=== PATIENT | male | born 1945 | race Caucasian/White ===

== ENCOUNTER 2016-12-16 12:39 | Emergency (ER) | payer MEDICARE, OTHER ==
[2016-12-16 12:48] VITALS: RESP 18
--- NOTE | 2016-12-16 14:04 | CT ---
EXAMINATION TYPE: CT brain alison palma DATE OF EXAM: 12/16/2016 1:37 PM COMPARISON: NONE HISTORY: Patient fell today. Patient denies head trauma or other head complaints. Patient denies ne ck pain or other neck complaints. CT DLP: 1457.6 mGycm Automated exposure control for dose reduction was used. TECHNIQUE: CT scan of the head and cervical spine are performed without contrast. FINDINGS: There is no acute intracranial hemorrhage, mass effect, or midline shift identified. The ventricles and sulci are within normal limits in size. Increased attenuation present within the sca lp towards the convexity. White matter demyelination present in the periventricular locations. There is mild cortical atrophy which is likely age-related. The globes are intact and the visualized sinuse s are clear. Cervical spine is visualized in its entirety from C1 through upper thoracic levels and demonstrates s atisfactory alignment without evidence of acute fracture or dislocation. Prevertebral soft tissue ap pears within normal limits. Multilevel foraminal encroachment due to uncovertebral joint hypertrophy , facet arthropathy. Spondylosis present at C6-7 with associated loss of disc height, C7-T1. The C1-C 2 articulation is unremarkable. IMPRESSION: 1. There is no acute fracture or dislocation evident in the cervical spine. 2. No acute intracranial hemorrhage, mass effect, or midline shift is seen. Possible subgaleal hemato ma.
--- NOTE | 2016-12-16 14:34 | ED ---
Fall HPI - General Chief Complaint: Fall Stated Complaint: Fall Time Seen by Provider: 12/16/16 12:41 Source: patient, EMS, RN notes reviewed Mode of arrival: EMS Limitations: no limitations - History of Present Illness Initial Comments: 71-year-old male presents emergency Department chief complaint some fall. Patient states that he knew his driveway was icy sidewalk in the grass though he did not see the ice there. Patient states he fell onto his left side. Patient complains of neck pain, back pain, left shoulder pain and left hand fifth digit pain. Patient states her no head injury no LOC. Patient is in c- collar from EMS. Patient states that he did lay on the ground for a period time though he denies being cold at this time. Patient denies any chest pain or shortness of breath. Patient states he has no hip pain no lower extremity pain. Patient offers no complaints paresthesias. Patient states this was a slip and fall there is no syncopal episode. - Related Data Home Medications Medication Instructions Recorded Confirmed Dicyclomine HCl 20 mg PO DAILY 05/24/14 12/16/16 Levothyroxine Sodium [Synthroid] 100 mcg PO DAILY 05/24/14 12/16/16 Omeprazole 40 mg PO DAILY 05/24/14 12/16/16 metFORMIN HCL 1,000 mg PO BID 05/24/14 12/16/16 Nortriptyline [Pamelor] 25 mg PO HS 02/23/15 12/16/16 Acyclovir 400 mg PO BID 10/11/16 12/16/16 LORazepam [Ativan] 0.5 mg PO Q6H PRN 10/11/16 12/16/16 Metoprolol Succinate (ER) [Toprol 100 mg PO DAILY 10/11/16 12/16/16 Xl] Ondansetron HCl [Zofran] 8 mg PO Q8H PRN 10/11/16 12/16/16 Sulfamethox-Tmp 400-80Mg [Bactrim 1 tab PO DAILY 10/11/16 12/16/16 SS 400-80 mg] Tamsulosin [Flomax] 0.4 mg PO HS 10/11/16 12/16/16 amLODIPine [Norvasc] 5 mg PO DAILY 10/11/16 12/16/16 Sennosides [Senna] 17.2 mg PO DAILY PRN 12/16/16 12/16/16 Tacrolimus [Prograf] 0.5 mg PO DAILY 12/16/16 12/16/16 Previous Rx's Medication Instructions Recorded Aspirin EC [Ecotrin Low Dose] 81 mg PO DAILY #30 tablet. 03/02/15 Hydrocodone/Acetaminophen [[place] 1 tab PO Q6HR PRN #20 tab 12/16/16 5-325] Allergies Allergy/AdvReac Type Severity Reaction Status Date / Time No Known Allergies Allergy Verified 12/16/16 13:10 Review of Systems ROS Statement: Those systems with pertinent positive or pertinent negative responses have been documented in the HPI. ROS Other: All systems not noted in ROS Statement are negative. Past Medical History Past Medical History: Coronary Artery Disease (CAD), Cancer, Chest Pain / Angina , Diabetes Mellitus, Deep Vein Thrombosis (DVT), GI Bleed, Hyperlipidemia, Hypertension, Osteoarthritis (OA), Thyroid Disorder Additional Past Medical History / Comment(s): hx KIDNEY STONES, hx DIVERTICULITIS, currently getting chemo History of Any Multi-Drug Resistant Organisms: None Reported Past Surgical History: Adenoidectomy, Cholecystectomy, Heart Catheterization With Stent, Hernia Repair, Orthopedic Surgery, Tonsillectomy Additional Past Surgical History / Comment(s): carpal tunnel, bone spur repair to bilateral heals and FEET, X5 cardiac STENTS, RT KNEE BONE SPURS, CATARACTS JA, JA INGUINAL HERNIA REPAIR AND UMBILLICAL. removal of malignant tumor from back Past Anesthesia/Blood Transfusion Reactions: Motion Sickness Date of Last Stent Placement:: 2006 Past Psychological History: No Psychological Hx Reported, Depression Smoking Status: Never smoker Past Alcohol Use History: None Reported Past Drug Use History: None Reported - Past Family History Father Family Medical History: Myocardial Infarction ([place]) Additional Family Medical History / Comment(s): PTBA Mother Family Medical History: CVA/TIA, Diabetes Mellitus (Mother at age of 82 from CVA and diabetes and she did have episode of rectal bleed.) Additional Family Medical History / Comment(s): JA KNEE REPLACEMENT Brother(s) Family Medical History: Cancer General Exam Limitations: no limitations General appearance: alert, in no apparent distress Head exam: Present: atraumatic, normocephalic, normal inspection Eye exam: Present: normal appearance, PERRL, EOMI. Absent: scleral icterus, conjunctival injection, periorbital swelling ENT exam: Present: normal exam, normal oropharynx, mucous membranes moist, TM's normal bilaterally, normal external ear exam Neck exam: Present: normal inspection, tenderness. Absent: meningismus, full ROM (Patient in c-collar), lymphadenopathy Respiratory exam: Present: normal lung sounds bilaterally. Absent: respiratory distress, wheezes, rales, rhonchi, stridor Cardiovascular Exam: Present: regular rate, normal rhythm, normal heart sounds. Absent: systolic murmur, diastolic murmur, rubs, gallop, clicks GI/Abdominal exam: Present: soft, normal bowel sounds. Absent: distended, tenderness, guarding, rebound, rigid Extremities exam: Present: other (Left shoulder is mild tenderness noted though patient has good range of motion, left hand fifth digit there is some tenderness over the fifth digit no obvious deformity. Lower extremity strength equal bilaterally neurovascular intact) Back exam: Present: normal inspection, full ROM, tenderness (Mild tenderness to the thoracic and lumbar region), paraspinal tenderness, vertebral tenderness Neurological exam: Present: alert, oriented X3, CN II-XII intact, reflexes normal. Absent: motor sensory deficit Skin exam: Present: warm, dry, intact, normal color. Absent: rash Course Vital Signs 12/16/16 12:40 Temperature 97.4 F L Pulse Rate 69 Respiratory 18 Rate Blood Pressure 178/82 O2 Sat by Pulse 98 Oximetry Medical Decision Making - Medical Decision Making 71-year-old male present emergency for slipped and fall from ice. There is no acute fracture. CT showed possible subaleal hematoma though he has no lacerations no noted head injuryPlease return to the Emergency Department if symptoms worsen or any other concerns. Disposition Clinical Impression: Fall, Multiple contusions, Back pain Disposition: HOME SELF-CARE Condition: Stable Instructions: Contusion in Adults (ED) Additional Instructions: Please return to the Emergency Department if symptoms worsen or any other concerns. Prescriptions: Hydrocodone/Acetaminophen [[place] 5-325] 1 tab PO Q6HR PRN #20 tab PRN Reason: Pain Time of Disposition: 15:26
--- NOTE | 2016-12-16 15:00 | XR ---
Lumbar spine HISTORY: Trauma and pain 3 views of the lumbar spine correlated to prior lumbar spine 10 December 2012 Bone mineralization is low. Lumbar vertebral bodies show stable height, alignment. Sclerosis present in the posterior elements. There is multilevel spondylosis. Loss of disc height present at L4-5, L5-S 1. IMPRESSION: Essentially stable exam. No acute abnormality evident. Degenerative disc disease and face t arthropathy.
--- NOTE | 2016-12-16 15:08 | XR ---
EXAMINATION TYPE: XR chest 1V DATE OF EXAM: 12/16/2016 2:59 PM COMPARISON: 10/11/2016 HISTORY: Post fall TECHNIQUE: Single frontal view of the chest is obtained. FINDINGS: There is no focal air space opacity, pleural effusion, or pneumothorax seen. The cardiac silhouette size is within normal limits. The osseous structures are intact. Hyperinflation suggests COPD. Hypertrophic and degenerative change of the spine noted. IMPRESSION: No acute process.
--- NOTE | 2016-12-16 15:11 | XR ---
EXAMINATION TYPE: XR hand complete LT DATE OF EXAM: 12/16/2016 2:59 PM COMPARISON: NONE HISTORY: Pain FINDINGS: The osseous structures are intact. There is arthropathy involving the DIP and PIP joints. Narrowing o f the MCP joint of the first through fourth digits seen. Arthropathy is a pattern of hypertrophic art hropathy and likely representing osteoarthritis. Corticated bony densities are seen along the dorsum of the middle phalanx of the fourth and fifth dig it and appear to be chronic. IMPRESSION: 1. No definite acute fracture or dislocation if symptoms persist, follow-up study in 7 to 10 days wo uld be suggested. 2. Post arthritic changes correlate for osteoarthritis.
--- NOTE | 2016-12-16 15:13 | XR ---
Left shoulder HISTORY: Trauma and pain 3 views of the left shoulder There is mild arthropathy of the glenohumeral joint. Overlying artifact is noted. Distal acromion is downturned. Left lung apex as visualized is normal. Bone mineralization, joint spaces and alignment m aintained. IMPRESSION: No fracture or dislocation.
--- NOTE | 2016-12-16 15:15 | XR ---
EXAMINATION TYPE: AP pelvis, one view DATE OF EXAM ORDERED: 12/16/2016 2:59 PM HISTORY: Pain. COMPARISON: None. FINDINGS: No fracture or dislocation is seen. There is sclerosis of the left SI joint and partial fu lin. Both femoral heads are nonspherical. There is a small "bump" on the right femoral neck. IMPRESSION: 1. PLEASE CORRELATE CLINICALLY FOR FEMOROACETABULAR IMPINGEMENT SYNDROME. 2. ASYMMETRIC SACROILIITIS. DIFFERENTIAL DIAGNOSIS INCLUDES PSORIATIC ARTHRITIS, REACTIVE ARTHRITIS, OSTEOARTHRITIS AND RHEUMATOID ARTHRITIS.
--- NOTE | 2016-12-16 15:33 | XR ---
Thoracic spine HISTORY: Trauma and pain 2 views of the thoracic spine on 3 images Thoracic vertebral bodies show preserved height, alignment, bone mineralization is mildly reduced. Fl owing osteophytes present along the anterior aspects of the thoracic vertebral bodies could be indica tive of diffuse idiopathic skeletal hyperostosis rather than degenerative disc changes. No paraspinal mass. There is a mild spinal curvature. IMPRESSION: No acute fracture or subluxation is evident.
[2016-12-16 15:42] VITALS: BP 149/73; PULSE 66; TEMP 96.8
== END 2016-12-16 15:42 | disposition home or self-care (01) ==
LOC: EC 12:39
DX: T14.8 Other injury of unspecified body region (principal); W00.0XXA Fall on same level due to ice and snow, initial encounter; M54.6 Pain in thoracic spine; M54.5 Low back pain; M25.512 Pain in left shoulder; M54.2 Cervicalgia; M25.542 Pain in joints of left hand; I25.10 Atherosclerotic heart disease of native coronary artery without angina pectoris; E11.9 Type 2 diabetes mellitus without complications; E78.5 Hyperlipidemia, unspecified; I10 Essential (primary) hypertension; M19.90 Unspecified osteoarthritis, unspecified site; F32.9 Major depressive disorder, single episode, unspecified; E07.9 Disorder of thyroid, unspecified; Z86.718 Personal history of other venous thrombosis and embolism; Z85.828 Personal history of other malignant neoplasm of skin; Z79.84 Long term (current) use of oral hypoglycemic drugs; Z79.899 Other long term (current) drug therapy
CPT/HCPCS: 70450; 71010; 72070; 72100; 72125; 72170; 99285

== ENCOUNTER 2016-12-17 07:30 | Emergency (ER) | payer MEDICARE, OTHER ==
[2016-12-17 07:44] VITALS: BP 159/68; RESP 18; TEMP 96.8
--- NOTE | 2016-12-17 08:38 | ED ---
Lower Extremity Injury HPI - General Chief Complaint: Extremity Injury, Lower Stated Complaint: L Hip pain Time Seen by Provider: 12/17/16 08:10 Source: patient, RN notes reviewed Mode of arrival: ambulatory Limitations: no limitations - History of Present Illness Initial Comments: Patient is a 71-year-old male presents to the emergency room for reevaluation fall. Patient states he was here yesterday for the same issue. Patient states he was unable to fill his prescription pain medication after he left the ER. Patient states he woke up this morning and began having worsening posterior left hip pain. Patient states he still able to walk. Patient states pain is worse when he presses over the area. Patient denies any new falls or trauma to his hip. Patient denies numbness or tingling going down his leg. Patient denies any other symptoms or complaints. - Related Data Home Medications Medication Instructions Recorded Confirmed Dicyclomine HCl 20 mg PO DAILY 05/24/14 12/17/16 Levothyroxine Sodium [Synthroid] 100 mcg PO DAILY 05/24/14 12/17/16 Omeprazole 40 mg PO DAILY 05/24/14 12/17/16 metFORMIN HCL 1,000 mg PO BID 05/24/14 12/17/16 Nortriptyline [Pamelor] 25 mg PO HS 02/23/15 12/17/16 Acyclovir 400 mg PO BID 10/11/16 12/17/16 LORazepam [Ativan] 0.5 mg PO Q6H PRN 10/11/16 12/17/16 Metoprolol Succinate (ER) [Toprol 100 mg PO DAILY 10/11/16 12/17/16 Xl] Ondansetron HCl [Zofran] 8 mg PO Q8H PRN 10/11/16 12/17/16 Sulfamethox-Tmp 400-80Mg [Bactrim 1 tab PO DAILY 10/11/16 12/17/16 SS 400-80 mg] Tamsulosin [Flomax] 0.4 mg PO HS 10/11/16 12/17/16 amLODIPine [Norvasc] 5 mg PO DAILY 10/11/16 12/17/16 Sennosides [Senna] 17.2 mg PO DAILY PRN 12/16/16 12/17/16 Tacrolimus [Prograf] 0.5 mg PO DAILY 12/16/16 12/17/16 Previous Rx's Medication Instructions Recorded Aspirin EC [Ecotrin Low Dose] 81 mg PO DAILY #30 tablet. 03/02/15 Hydrocodone/Acetaminophen [[place] 1 tab PO Q6HR PRN #20 tab 12/16/16 5-325] Allergies Allergy/AdvReac Type Severity Reaction Status Date / Time No Known Allergies Allergy Verified 12/17/16 07:44 Review of Systems ROS Statement: Those systems with pertinent positive or pertinent negative responses have been documented in the HPI. ROS Other: All systems not noted in ROS Statement are negative. Past Medical History Past Medical History: Coronary Artery Disease (CAD), Cancer, Chest Pain / Angina , Diabetes Mellitus, Deep Vein Thrombosis (DVT), GI Bleed, Hyperlipidemia, Hypertension, Osteoarthritis (OA), Thyroid Disorder Additional Past Medical History / Comment(s): hx KIDNEY STONES, hx DIVERTICULITIS, hx of bone ca History of Any Multi-Drug Resistant Organisms: None Reported Past Surgical History: Adenoidectomy, Cholecystectomy, Heart Catheterization With Stent, Hernia Repair, Orthopedic Surgery, Tonsillectomy Additional Past Surgical History / Comment(s): carpal tunnel, bone spur repair to bilateral heals and FEET, X5 cardiac STENTS, RT KNEE BONE SPURS, CATARACTS JA, JA INGUINAL HERNIA REPAIR AND UMBILLICAL. removal of malignant tumor from back Past Anesthesia/Blood Transfusion Reactions: Motion Sickness Date of Last Stent Placement:: 2006 Past Psychological History: No Psychological Hx Reported, Depression Smoking Status: Never smoker Past Alcohol Use History: None Reported Past Drug Use History: None Reported - Past Family History Father Family Medical History: Myocardial Infarction ([place]) Additional Family Medical History / Comment(s): PTBA Mother Family Medical History: CVA/TIA, Diabetes Mellitus (Mother at age of 82 from CVA and diabetes and she did have episode of rectal bleed.) Additional Family Medical History / Comment(s): JA KNEE REPLACEMENT Brother(s) Family Medical History: Cancer General Exam - General Exam Comments Initial Comments: Laying in exam room, no acute distress. Limitations: no limitations General appearance: alert, in no apparent distress Head exam: Present: atraumatic, normocephalic, normal inspection Eye exam: Present: normal appearance ENT exam: Present: normal exam Neck exam: Present: normal inspection Respiratory exam: Present: normal lung sounds bilaterally. Absent: respiratory distress Cardiovascular Exam: Present: regular rate, normal rhythm, normal heart sounds Expanded Peripheral pulses: 2+: Femoral (R), Femoral (L) Left Hip exam: Present: full ROM, tenderness (lateral gluteal pain on palpation), external rotation, internal rotation, pelvic stability. Absent: crepitus, shortening Upper Leg exam: Present: normal inspection, full ROM. Absent: tenderness Knee exam: Present: normal inspection, full ROM. Absent: tenderness Neurovascular tendon exam: Present: no vascular compromise. Absent: pulse deficit (2+ dorsal pedal and posterior tibial pulses), abnormal cap refill ( Capillary refill less than 2 seconds) Back exam: Present: normal inspection Neurological exam: Present: alert, oriented X3, CN II-XII intact Psychiatric exam: Present: normal affect, normal mood Skin exam: Present: warm, dry, intact, normal color. Absent: rash Course Vital Signs 12/17/16 07:39 Temperature 96.8 F L Respiratory 18 Rate Blood Pressure 159/68 Medical Decision Making - Medical Decision Making Patient is a 71-year-old male to the emergency room for reevaluation fall injury. Patient woke up this morning with a left lateral gluteal pain. Patient states he has not filled his pain medicine prescription yet. Patient did receive a pelvis x-ray yesterday that showed no acute findings. Patient is able to walk. Patient has no pain on internal and external rotation of the left leg. Patient has full flexion and extension of hip. 5 out of 5 strength. Advised patient to fill his pain medications. Advised patient to follow-up with his primary care provider if symptoms persist. Advised patient to return for worsening symptoms. Patient states he understands everything that was discussed with him. Return parameters discussed. Case discussed with Dr. Jaimes. Disposition Clinical Impression: Fall, Contusion of left hip Disposition: HOME SELF-CARE Condition: Good Instructions: Hip Contusion (ED) Additional Instructions: Take prescribed pain medications as needed. Please follow up with primary care provider in 1-2 days. If any new symptom arises or symptoms worsen, return to ER as soon as possible. Referrals: Micheal Adamson MD [Primary Care Provider] - 1-2 days Time of Disposition: 08:39
== END 2016-12-17 08:46 | disposition home or self-care (01) ==
LOC: EC 07:30
DX: S70.02XD Contusion of left hip, subsequent encounter (principal); W19.XXXD Unspecified fall, subsequent encounter; Z79.899 Other long term (current) drug therapy; E11.9 Type 2 diabetes mellitus without complications; Z79.84 Long term (current) use of oral hypoglycemic drugs; I10 Essential (primary) hypertension; Z86.718 Personal history of other venous thrombosis and embolism; Z87.442 Personal history of urinary calculi; I25.10 Atherosclerotic heart disease of native coronary artery without angina pectoris; M19.90 Unspecified osteoarthritis, unspecified site; Z85.830 Personal history of malignant neoplasm of bone
CPT/HCPCS: 99283

== ENCOUNTER 2016-12-26 11:04 | Observation (INO) | payer MEDICARE, OTHER ==
--- NOTE | 2016-12-26 11:20 | ED ---
Abdominal Pain HPI - General Chief Complaint: Abdominal Pain Stated Complaint: Abd pain, diarrhea Source: patient Mode of arrival: EMS Limitations: no limitations - History of Present Illness Initial Comments: Patient is a 71-year-old male who presents for evaluation for right lower quadrant abdominal pain that began this morning. Past medical history as below. Patient has a recurrent history of chronic right lower quadrant abdominal pain. He states that his symptoms feel typical to his previous exacerbations. He's been worked up for this multiple times in the past with the most recent being in October and had unremarkable labs and unremarkable computed tomography scan. At that time he followed up with a surgeon and they recommended doing a colonoscopy which is scheduled for next month. Today however, he developed sharp/stabbing right lower quadrant abdominal pain that does not radiate. It fluctuates in intensity. If 500 mL bolus en route to the hospital improved the pain. Nothing seems to make it worse. He states that he has a good appetite. No nausea or vomiting. States that he has a yellowish diarrhea which is similar to previous. No blood in the stool. Not black. Of note, the patient is on long-term Bactrim secondary to bone marrow suppression due to his bone cancer. He is currently in remission. No chemotherapy or radiation. He denies fever, chills, headache, changes in vision, URI symptoms, shortness of breath, cough, chest pain, nausea, vomiting, pain or burning with urination. - Related Data Home Medications Medication Instructions Recorded Confirmed Dicyclomine HCl 20 mg PO DAILY 05/24/14 12/26/16 Levothyroxine Sodium [Synthroid] 100 mcg PO DAILY 05/24/14 12/26/16 Omeprazole 40 mg PO DAILY 05/24/14 12/26/16 metFORMIN HCL 1,000 mg PO BID 05/24/14 12/26/16 Nortriptyline [Pamelor] 25 mg PO HS 02/23/15 12/26/16 Acyclovir 400 mg PO BID 10/11/16 12/26/16 LORazepam [Ativan] 0.5 mg PO Q6H PRN 10/11/16 12/26/16 Metoprolol Succinate (ER) [Toprol 100 mg PO DAILY 10/11/16 12/26/16 Xl] Ondansetron HCl [Zofran] 8 mg PO Q8H PRN 10/11/16 12/26/16 Tamsulosin [Flomax] 0.4 mg PO HS 10/11/16 12/26/16 amLODIPine [Norvasc] 5 mg PO DAILY 10/11/16 12/26/16 Sennosides [Senna] 17.2 mg PO DAILY PRN 12/16/16 12/26/16 Tacrolimus [Prograf] 0.5 mg PO DAILY 12/16/16 12/26/16 Aspirin EC [Ecotrin Low Dose] 81 mg PO HS 12/26/16 12/26/16 Previous Rx's Medication Instructions Recorded Hydrocodone/Acetaminophen [[place] 1 tab PO Q6HR PRN #20 tab 12/16/16 5-325] Allergies Allergy/AdvReac Type Severity Reaction Status Date / Time No Known Allergies Allergy Verified 12/26/16 11:13 Review of Systems ROS Statement: Those systems with pertinent positive or pertinent negative responses have been documented in the HPI. ROS Other: All systems not noted in ROS Statement are negative. Past Medical History Past Medical History: Coronary Artery Disease (CAD), Cancer, Chest Pain / Angina , Diabetes Mellitus, Deep Vein Thrombosis (DVT), GI Bleed, Hyperlipidemia, Hypertension, Osteoarthritis (OA), Thyroid Disorder Additional Past Medical History / Comment(s): hx KIDNEY STONES, hx DIVERTICULITIS, hx of bone ca History of Any Multi-Drug Resistant Organisms: None Reported Past Surgical History: Adenoidectomy, Cholecystectomy, Heart Catheterization With Stent, Hernia Repair, Orthopedic Surgery, Tonsillectomy Additional Past Surgical History / Comment(s): carpal tunnel, bone spur repair to bilateral heals and FEET, X5 cardiac STENTS, RT KNEE BONE SPURS, CATARACTS JA, JA INGUINAL HERNIA REPAIR AND UMBILLICAL. removal of malignant tumor from back Past Anesthesia/Blood Transfusion Reactions: Motion Sickness Date of Last Stent Placement:: 2006 Past Psychological History: No Psychological Hx Reported, Depression Smoking Status: Never smoker Past Alcohol Use History: None Reported Past Drug Use History: None Reported - Past Family History Father Family Medical History: Myocardial Infarction ([place]) Additional Family Medical History / Comment(s): PTBA Mother Family Medical History: CVA/TIA, Diabetes Mellitus (Mother at age of 82 from CVA and diabetes and she did have episode of rectal bleed.) Additional Family Medical History / Comment(s): JA KNEE REPLACEMENT Brother(s) Family Medical History: Cancer General Exam Limitations: no limitations General appearance: alert, in no apparent distress, other (No acute distress) Head exam: Present: atraumatic, normocephalic, normal inspection Eye exam: Present: normal appearance, PERRL, EOMI. Absent: scleral icterus, conjunctival injection, periorbital swelling ENT exam: Present: normal exam, mucous membranes moist Neck exam: Present: normal inspection. Absent: tenderness, meningismus, lymphadenopathy Respiratory exam: Present: normal lung sounds bilaterally. Absent: respiratory distress, wheezes, rales, rhonchi, stridor Cardiovascular Exam: Present: regular rate, normal rhythm, normal heart sounds. Absent: systolic murmur, diastolic murmur, rubs, gallop, clicks GI/Abdominal exam: Present: soft, tenderness, normal bowel sounds, other (Bowel sounds in all 4 quadrants. Tenderness elicited in the right lower quadrant. Questionable positive McBurney sign. Positive psoas sign. Obturator sign. No rebound tenderness. No Rovsing sign. No peritoneal signs.). Absent: distended , guarding, rebound, rigid Extremities exam: Present: normal inspection, full ROM, normal capillary refill. Absent: tenderness, pedal edema, joint swelling, calf tenderness Back exam: Present: normal inspection Neurological exam: Present: alert, oriented X3, CN II-XII intact Psychiatric exam: Present: normal affect, normal mood Skin exam: Present: warm, dry, intact, normal color. Absent: rash Course Vital Signs 12/26/16 11:06 Temperature 97.1 F L Pulse Rate 73 Respiratory 20 Rate Blood Pressure 179/82 O2 Sat by Pulse 98 Oximetry Medical Decision Making - Medical Decision Making Patient resents for evaluation for right lower quadrant abdominal pain which is recurrent and chronic in nature. Has been worked up in the past with no significant findings. We'll order basic labs with a CT abdomen and pelvis and morphine with fluids and Zofran. -Laboratory findings as below. Leukopenia at 3.8. No significant joint and a mild [place]. Awaiting for CT. Updated the patient. 1330: CT findings evidence of colitis. Normal-appearing appendix. Discussed with the patient. Offered discharge with oral antibiotics versus observation for IV antibiotics and continued pain control. Patient states that he still in a significant amount of pain. States that if he is to be discharged home would come back. We'll start IV Levaquin and IV Flagyl. We'll order another dose of morphine as it helped in the past. Page 2 admitting physician per PCP (Juan Diego) preference. 1572: Spoke with PA of Dr. Adamson. Agrees to observation. Requesting that GI be consulted. No further orders. - Lab Data Result diagrams: 12/26/16 11:20 12/26/16 11:20 Lab Results 12/26/16 12/26/16 12/26/16 Range/Units 11:20 11:20 11:50 WBC 3.4 L (3.8-10.6) k/uL RBC 3.86 L (4.30-5.90) m/uL Hgb 11.8 L (13.0-17.5) gm/dL Hct 35.5 L (39.0-53.0) % MCV 92.1 (80.0-100.0) fL MCH 30.7 (25.0-35.0) pg MCHC 33.3 (31.0-37.0) g/dL RDW 13.6 (11.5-15.5) % Plt Count 109 L (150-450) k/uL Neutrophils % 55 % Lymphocytes % 27 % Monocytes % 10 % Eosinophils % 5 % Basophils % 1 % Neutrophils # 1.8 (1.3-7.7) k/uL Lymphocytes # 0.9 L (1.0-4.8) k/uL Monocytes # 0.3 (0-1.0) k/uL Eosinophils # 0.2 (0-0.7) k/uL Basophils # 0.0 (0-0.2) k/uL Sodium 144 (137-145) mmol/L Potassium 4.1 (3.5-5.1) mmol/L Chloride 110 H (98-107) mmol/L Carbon Dioxide 23 (22-30) mmol/L Anion Gap 11 mmol/L BUN 17 (9-20) mg/dL Creatinine 1.30 H (0.66-1.25) mg/dL Est GFR (MDRD) Af Amer >60 (>60 ml/min/1.73 sqM) Est GFR (MDRD) Non-Af 55 (>60 ml/min/1.73 sqM) Glucose 87 (74-99) mg/dL Calcium 8.8 (8.4-10.2) mg/dL Total Bilirubin 0.4 (0.2-1.3) mg/dL AST 22 (17-59) U/L ALT 31 (21-72) U/L Alkaline Phosphatase 77 (38-126) U/L Total Protein 6.4 (6.3-8.2) g/dL Albumin 3.9 (3.5-5.0) g/dL Urine Color Light Yellow Urine Appearance Clear (Clear) Urine pH 5.5 (5.0-8.0) Ur Specific [place] 1.008 (1.001-1.035) Urine Protein Negative (Negative) Urine Glucose (UA) Negative (Negative) Urine Ketones Negative (Negative) Urine Blood Negative (Negative) Urine Nitrate Negative (Negative) Urine Bilirubin Negative (Negative) Urine Urobilinogen <2.0 (<2.0) mg/dL Ur Leukocyte Esterase Trace H (Negative) Urine RBC 1 (0-5) /hpf Urine WBC 1 (0-5) /hpf Urine Mucus Rare H (None) /hpf Disposition Clinical Impression: Colitis, Intractable abdominal pain, Chronic kidney disease, Leukopenia Disposition: ADMITTED IP TO THIS [facility] Condition: Good Decision to Admit Reason: Admit from EC
[2016-12-26] MEDS ORDERED: ONDANSETRON 4 MG/2 ML VIAL IVP STA (11:30)
[2016-12-26] MEDS ORDERED: SODIUM CHLORIDE 0.9% 500 ML IV ONE (11:30)
[2016-12-26] MEDS ORDERED: MORPHINE SULFATE 2 MG/ML SYRINGE IVP ONE ×2 (11:30→13:29)
[2016-12-26] MEDS ORDERED: RX INFO: IV CONTRAST WAS GIVEN 1 EACH MISC MISCELLANE PRN (11:30)
[2016-12-26] MEDS: SODIUM CHLORIDE 0.9% 1,000 ML IV SCH ×3 (11:42→14:12)
[2016-12-26 11:45] LABS: Basophils % (A) 1 %; CH 30.5; CHCM 33.2; Eosinophils # (A) 0.2 k/uL (0-0.7); Eosinophils % (A) 5 %; HCT 35.5 % (39.0-53.0); HDW 2.68; HGB 11.8 gm/dL (13.0-17.5); Luc # (Auto) 0.11; Luc % (Auto) 3; Lymphocytes # (A) 0.9 k/uL (1.0-4.8); Lymphocytes % (A) 27 %; MCH 30.7 pg (25.0-35.0); MCHC 33.3 g/dL (31.0-37.0); MCV 92.1 fL (80.0-100.0); Mean Platelet Volume 7.8; Monocytes # (A) 0.3 k/uL (0-1.0); Monocytes % (A) 10 %; Neutrophils # (A) 1.8 k/uL (1.3-7.7); Neutrophils % (A) 55 %; RBC 3.86 m/uL (4.30-5.90); RDW 13.6 % (11.5-15.5); WBC 3.4 k/uL (3.8-10.6); WBC (Perox) 3.45
[2016-12-26 12:02] LABS: ALT 31 U/L (21-72); AST 22 U/L (17-59); Alkaline Phosphatase 77 U/L (38-126); Anion Gap 11 mmol/L; Blood Urea Nitrogen 17 mg/dL (9-20); Calcium 8.8 mg/dL (8.4-10.2); Carbon Dioxide 23 mmol/L (22-30); Chloride 110 mmol/L (98-107); Glucose 87 mg/dL (74-99); Non-African American GFR(MDRD) 55 (>60 ml/min/1.73 sqM); Potassium 4.1 mmol/L (3.5-5.1); Sodium 144 mmol/L (137-145); Total Bilirubin 0.4 mg/dL (0.2-1.3); Total Protein 6.4 g/dL (6.3-8.2)
[2016-12-26 12:07] LABS: Appearance,Urine Clear (Clear); Bilirubin,Urine Negative (Negative); Glucose,Urine (UA) Negative (Negative); Ketones,Urine Negative (Negative); Leukocyte Esterase,Urine Trace (Negative); Mucus,Urine Rare /hpf; Nitrite,Urine Negative (Negative); PH, Urine 5.5 (5.0-8.0); Particle Count 540; Protein,Urine Negative (Negative); RBC,Urine 1 /hpf (0-5); Specific Gravity,Urine 1.008 (1.001-1.035); UA Billing (MACRO vs. MICRO) MICRO; Urobilinogen,Urine <2.0 mg/dL (<2.0); WBC,Urine 1 /hpf (0-5)
--- NOTE | 2016-12-26 13:05 | CT ---
EXAMINATION TYPE: CT abdomen pelvis w con DATE OF EXAM: 12/26/2016 12:51 PM COMPARISON: CT abdomen pelvis October 11, 2016 HISTORY: Abdominal pain and diarrhea per patient. CT DLP: 1242.00 mGycm, Automated Exposure Control for Dose Reduction was Utilized. CONTRAST: CT scan of the abdomen and pelvis is performed without oral but with IV Contrast, patient injected wi th 100 ml mL of Omnipaque 300. FINDINGS: LUNG BASES: Coronary artery calcification and/or coronary stents in the RCA distribution is redemonst rated. Heart size is stable and upper limits of normal. There is right infrahilar scarring on axial i mage 1 noted centrally. LIVER/GB: Cholecystectomy clips are redemonstrated. PANCREAS: No significant abnormality is seen. SPLEEN: No significant abnormality is seen. ADRENALS: No significant abnormality is seen. KIDNEYS: A low dense 3.3 cm cyst upper pole level medially left kidney is redemonstrated, slightly la rger in size, dependent calcium is not evident on current study. Still suspect benign cyst, Hounsfiel d units average 17. BOWEL: Evaluation of the bowel is suboptimal due to lack of enteric contrast. There is no suspicious small or large bowel dilatation seen. Normal-appearing appendix is seen from cecum. There is moderate suspicious concentric focal wall thickening in the proximal transverse colon seen best coronal image 35 in which constricting mass or neoplasm needs to BE excluded. Correlation with colonoscopy advised if has not been performed in last 3 years. This area is less suspicious on prior exam. Finding could be product of poor distention. There is more mild wall thickening in the colon from hepatic flexure to the rectum, a mild colitis cannot be entirely excluded though finding could be product of poor dis tention. PROSTATE/SEMINAL VESICLES: There are central zone calcifications seen in slightly prominent prostate gland bulging on bladder base, clinical correlation for BPH is advised. Findings stable from prior. LYMPH NODES: No greater than 1cm abdominal or pelvic lymph nodes are appreciated. OSSEOUS STRUCTURES: Osseous structures are demineralized. There is moderate joint space loss in both hips seen. There is multilevel spurring in the thoracolumbar spine redemonstrated. OTHER: A calcific focus anterior left upper abdomen on axial image 39 could reflect calcified lymph n ode or dropped gallstone during cholecystectomy. IMPRESSION: No bowel obstruction is seen. Cannot exclude a long segment distal colitis, clinical reyes elation advised. No significant acute finding is otherwise seen to account for patient's clinical sym ptoms. Attention to proximal transverse colon as detailed above.
[2016-12-26] MEDS ORDERED: NALOXONE 0.4 MG/ML 1 ML VIAL IV PRN (13:54)
[2016-12-26] MEDS ORDERED: LEVOFLOXACIN 750MG-D5W PMX 750 MG in DEXTROSE/WATER 1 150ML.BAG IVPB STA (14:06)
[2016-12-26] MEDS ORDERED: SENNOSIDES 8.6 MG TAB PO PRN (16:51)
[2016-12-26] MEDS ORDERED: LORazepam 0.5 MG TAB PO PRN (16:51)
[2016-12-26] MEDS ORDERED: ONDANSETRON 4 MG TAB PO PRN (16:51)
[2016-12-26 17:11] LABS: Glucose,Whole Blood 82 mg/dL (75-99)
[2016-12-26] MEDS: metFORMIN 500 MG TAB PO SCH (18:31)
[2016-12-26] MEDS: NORTRIPTYLINE 25 MG CAP PO SCH (19:37)
[2016-12-26] MEDS: metroNIDAZOLE-NS PMX 500 MG in SALINE 1 100ML.BAG IVPB SCH (19:37)
[2016-12-26] MEDS: ACYCLOVIR 200 MG CAP PO SCH (19:38)
[2016-12-26] MEDS: TAMSULOSIN 0.4 MG CAP.ER.24H PO SCH (19:38)
[2016-12-26] MEDS: ASPIRIN 81 MG CHEW PO SCH (19:38)
[2016-12-26] MEDS: MORPHINE SULFATE 2 MG/ML SYRINGE IVP PRN (19:45)
[2016-12-26 21:13] LABS: Glucose,Whole Blood 111 mg/dL (75-99)
[2016-12-27 01:31] LABS: Hemoglobin A1C 5.7 % (4.2-6.1)
[2016-12-27] MEDS: metroNIDAZOLE-NS PMX 500 MG in SALINE 1 100ML.BAG IVPB SCH ×4 (02:20→21:19)
[2016-12-27] MEDS: LEVOTHYROXINE 100 MCG TAB PO SCH (06:26)
[2016-12-27 06:41] LABS: Glucose,Whole Blood 70 mg/dL (75-99)
[2016-12-27] MEDS: ACYCLOVIR 200 MG CAP PO SCH ×2 (07:54→19:58)
[2016-12-27] MEDS: metFORMIN 500 MG TAB PO SCH ×2 (07:54→17:24)
[2016-12-27] MEDS: TACROLIMUS 0.5 MG CAP PO SCH (07:55)
[2016-12-27] MEDS: METOPROLOL SUCCINATE (ER) 100 MG TAB.ER.24H PO SCH (07:55)
[2016-12-27] MEDS: amLODIPine 5 MG TAB PO SCH (07:55)
[2016-12-27] MEDS: PANTOPRAZOLE 40 MG TABLET PO SCH (07:55)
[2016-12-27] MEDS: DICYCLOMINE 20 MG TAB PO SCH (07:55)
[2016-12-27] MEDS: MORPHINE SULFATE 2 MG/ML SYRINGE IVP PRN (09:39)
--- NOTE | 2016-12-27 10:27 | P.CONS ---
History of Present Illness - Reason for Consult Consult date: 12/27/16 colitis abdominal pain Requesting physician: Micheal Adamson - History of Present Illness 71-year-old woman patient Dr. Micheal Adamson with a past mental history of myelodysplastic disease with cancerous back tumor status post chemotherapy, bone marrow transplant 2016 at [facility], chronic abdominal pain, nephrolithiasis, pancytopenia, coronary artery disease with PCI stent, diabetes mellitus, hypertension, hyperlipidemia, diverticulosis, and depression. Patient presents with intractable lower crampy abdominal pain with bloody diarrhea for the last week. He averages about 4 red bloody bowel movement daily. EGD colonoscopy February 2015 for rectal bleeding and abnormal computed tomography scan reported minimal antral gastritis and normal-appearing colon from rectum to cecum with no evidence of colitis colorectal neoplasia. White count 3.4. Hemoglobin 11.8. Hemoglobin October 2016 was 12.2. Platelet 109. BUN 17. Creatinine 1.3. CT abdomen and pelvis with IV contrast only reported no bowel obstruction. Cannot exclude a long segmental distal colitis. Moderate concentric focal wall thickening in the proximal transverse colon constricting mass or neoplasm needs to be excluded. Review of Systems Constitutional: Denies fever, chills, sweats, weight gain, or loss. HEENT: Negative for migraines, blurred vision or loss, earaches, drainage, tinnitus, oral mucosal lesions, dysphagia, or odynophagia. Cardiac: CAD with PCI stent. Hypertension. Hyperlipidemia. PA. DVT. Respiratory: Negative for shortness of breath, hemoptysis, cough, or sputum production. Gastrointestinal: See HPI for pertinent findings. Genitourinary: Negative for hematuria, urgency, frequency, polyuria, dysuria, or penile discharge. Musculoskeletal: Negative for muscle aches, swelling, arthritis, and arthralgias. Neurologic: Diabetes mellitus. Negative for stroke or TIA. Endocrine: Negative for thyroid problems. Hematology/oncology: Myelodysplastic syndrome. Cancerous back tumor requiring chemo with bone marrow transplant. Skin: Negative for rash or itching. Psychiatric: Negative history for depression and anxiety All systems: negative (See HPI) Past Medical History Past Medical History: Coronary Artery Disease (CAD), Cancer, Chest Pain / Angina , Diabetes Mellitus, Deep Vein Thrombosis (DVT), GERD/Reflux, GI Bleed, Hypertension, Myocardial Infarction (PA), Osteoarthritis (OA), Prostate Disorder , Renal Disease, Thyroid Disorder Additional Past Medical History / Comment(s): 2014 diagnosed with bone cancer after found to have cancerous tumor on his back-removed and pt had chemo, 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 [facility], chronic intermittedt R lower abdominal pain with etiology unknown-scheduled to have colonoscopy next month, NIDDM type II, BPH, rectal bleed, diverticulosis, kidney stones, pt denies any kidney disease other than stones. Last Myocardial Infarction Date:: 2014 History of Any Multi-Drug Resistant Organisms: None Reported Past Surgical History: Adenoidectomy, Cholecystectomy, Heart Catheterization With Stent, Hernia Repair, Orthopedic Surgery, Tonsillectomy Additional Past Surgical History / Comment(s): Bilateral carpal tunnel, bone spur removals to bilateral heels and FEET, X6 cardiac STENTS, RT KNEE BONE SPURS , CATARACTS JA with lens implants, JA INGUINAL HERNIA REPAIR AND UMBILLICAL. removal of malignant tumor from back Past Anesthesia/Blood Transfusion Reactions: No Reported Reaction Additional Past Anesthesia/Blood Transfusion Reaction / Comm: Pt states he has received blood in the past without reaction. Date of Last Stent Placement:: 2014 Past Psychological History: No Psychological Hx Reported, Depression Additional Psychological History / Comment(s): Pt states he has a brother who is in a wheelchair that lives with him. Pt is independent. He drives. Smoking Status: Never smoker Past Alcohol Use History: None Reported Past Drug Use History: None Reported - Past Family History Father Family Medical History: Myocardial Infarction (PA) Additional Family Medical History / Comment(s): PTBA Mother Family Medical History: CVA/TIA, Diabetes Mellitus Additional Family Medical History / Comment(s): Mother of a CVA at the age of 82 yrs. Brother(s) Family Medical History: Cancer Medications and Allergies Home Medications Medication Instructions Recorded Confirmed Type Dicyclomine HCl 20 mg PO DAILY 05/24/14 12/26/16 History Levothyroxine Sodium [Synthroid] 100 mcg PO DAILY 05/24/14 12/26/16 History Omeprazole 40 mg PO DAILY 05/24/14 12/26/16 History metFORMIN HCL 1,000 mg PO BID 05/24/14 12/26/16 History Nortriptyline [Pamelor] 25 mg PO HS 02/23/15 12/26/16 History Acyclovir 400 mg PO BID 10/11/16 12/26/16 History LORazepam [Ativan] 0.5 mg PO Q6H PRN 10/11/16 12/26/16 History Metoprolol Succinate (ER) [Toprol 100 mg PO DAILY 10/11/16 12/26/16 History Xl] Ondansetron HCl [Zofran] 8 mg PO Q8H PRN 10/11/16 12/26/16 History Tamsulosin [Flomax] 0.4 mg PO HS 10/11/16 12/26/16 History amLODIPine [Norvasc] 5 mg PO DAILY 10/11/16 12/26/16 History Sennosides [Senna] 17.2 mg PO DAILY PRN 12/16/16 12/26/16 History Tacrolimus [Prograf] 0.5 mg PO DAILY 12/16/16 12/26/16 History Aspirin EC [Ecotrin Low Dose] 81 mg PO HS 12/26/16 12/26/16 History Allergies Allergy/AdvReac Type Severity Reaction Status Date / Time No Known Allergies Allergy Verified 12/26/16 11:13 Physical Exam Vitals: Vital Signs Temp Pulse Pulse Resp BP BP Pulse Ox 12/27/16 08:00 70 18 12/27/16 07:33 98.1 F 70 18 151/71 97 12/27/16 04:00 97.6 F 67 16 141/69 97 12/27/16 00:00 16 12/26/16 23:44 97.7 F 71 16 140/75 95 12/26/16 20:10 73 158/76 12/26/16 20:00 16 12/26/16 19:45 97.8 F 73 16 189/100 96 12/26/16 15:52 97.9 F 67 18 171/93 100 12/26/16 14:19 97.5 F L 76 18 161/77 95 Intake and Output 12/26/16 12/27/16 12/27/16 22:59 06:59 14:59 Other: Voiding Method Toilet Toilet Toilet # Voids 1 4 2 Weight 101.151 kg General appearance: The patient is alert, oriented, in no acute distress. HET: Head is normocephalic and atraumatic. Pupils are equal and reactive. Oropharynx is clear without lesions. Neck: Supple without lymphadenopathy. Trachea midline. Heart: S1 S2. Regular rate and rhythm. Lungs: No crackles or wheezes are heard. Abdomen: Soft, bilateral lower quadrant mild tenderness, nondistended with bowel sounds. No peritoneal signs. No palpable organomegaly or masses. Extremities: Normal skin color and turgor. No cyanosis, rash, ulceration, clubbing, or edema. Radial and pedal pulses are 2/4 bilaterally. Neurological: No focal deficits. Strength and sensation are grossly intact. Results CBC & Chem 7: 12/26/16 11:20 12/26/16 11:20 Labs: Abnormal Lab Results - Last 24 Hours (Table) 12/26/16 12/27/16 Range/Units 21:01 06:38 POC Glucose (mg/dL) 111 H 70 L (75-99) mg/dL CT scan - abdomen: report reviewed (Reviewed by Dr. Patel) CT scan - pelvis: report reviewed Assessment and Plan (1) Colitis Narrative/Plan: 71-year-old gentleman admitted with lower abdominal crampy pain with bloody diarrhea 1 week suspect ischemic colitis however infectious possible inflammatory colitis cannot be entirely excluded. CT abdomen and pelvis reported segmental transverse/distal colitis. EGD colonoscopy February 2015 reported no evidence of colorectal neoplasia or peptic ulcer disease. History of underlying met myelodysplastic disease with bone marrow transplant and chemotherapy with mild leukopenia and thrombocytopenia. Status: Acute (2) Myelodysplastic disease Status: Acute (3) GI bleed Status: Acute (4) Chronic anemia Narrative/Plan: component of acute blood loss Status: Chronic Plan: 1. Stool studies. 2. CBC monitoring. 3. IV antibiotics. 4. Colonoscopy not planned at this time but contingent on clinical course. 5. Clear liquid diet. We'll follow with you. Thank you for this kind referral and the opportunity to participate in the care of your patient. This consultation was discussed with Dr. Patel. The impression and plan of care have been directed as dictated.
[2016-12-27 12:05] LABS: Glucose,Whole Blood 67 mg/dL (75-99)
[2016-12-27] MEDS ORDERED: DEXTROSE 50%-WATER 50 ML SYRINGE IVP ONE (12:20)
[2016-12-27 12:32] LABS: Glucose,Whole Blood 66 mg/dL (75-99)
[2016-12-27 12:48] LABS: Glucose,Whole Blood 99 mg/dL (75-99)
[2016-12-27] MEDS ORDERED: LEVOFLOXACIN 750MG-D5W PMX 750 MG in DEXTROSE/WATER 1 150ML.BAG IVPB SCH (14:00)
[2016-12-27] MEDS: SODIUM CHLORIDE 0.9% 1,000 ML IV SCH ×2 (16:31→17:24)
[2016-12-27 17:23] LABS: Glucose,Whole Blood 104 mg/dL (75-99)
--- NOTE | 2016-12-27 17:54 | HP ---
DATE OF ADMISSION: Patient is a 71-year-old male who follows with Dr. Micheal Adamson with history of myelodysplastic syndrome, came in with complaints of diarrhea that has been going on for since last week and complaints of rectal bleeding, multiple episodes, although this rectal bleeding or diarrhea is not evidenced by any of the staff. The patient had a CT of the abdomen. Patient was complaining of lower abdominal pain. CT of the abdomen with IV contrast was done, which was read as cannot exclude segmental distal colitis, moderate concentric focal wall thickening in the paroxysmal transverse colon, although his symptoms are mostly in the suprapubic area and the CT was also read as consider mass or neoplasm needs to be excluded, because of which gastroenterology was consulted and patient was started on IV antibiotics for possible diverticulitis or infectious colitis. Patient had an EGD, colonoscopy in February 2015, which showed some minimal gastritis and normal appearing colon from rectum to cecum without any evidence of colitis or colorectal neoplasia. REVIEW OF SYSTEMS: CONSTITUTIONAL: No fever, no malaise, no fatigue. HEENT: No recent visual problems or hearing problems. Denied any sore throat. CARDIOVASCULAR: No chest pain, orthopnea, PND, no palpitations, no syncope. PULMONARY: No shortness of breath, no cough, no hemoptysis. GASTROINTESTINAL: As described in HPI. Patient's abdominal pain is pain in the suprapubic area about 5/10 in severity. Although patient tends to exacerbate symptoms of tenderness upon exam. NEUROLOGICAL: No headaches, no weakness, no numbness. HEMATOLOGICAL: Denies any bleeding or petechiae. GENITOURINARY: Denies any burning micturition, frequency, or urgency. MUSCULOSKELETAL/RHEUMATOLOGICAL: Denies any joint pain, swelling, or any muscle pain. ENDOCRINE: Denies any polyuria or polydipsia. The rest of the 14 point review of systems is negative. PAST MEDICAL HISTORY: Significant for coronary artery disease, history of bone cancer as per the patient, diabetes mellitus, DVT in the past, gastroesophageal reflux disease, GI bleeds in the past, hypertension, myocardial infarction, osteoarthritis, benign prostatic hypertrophy, hypothyroidism. PAST SURGICAL HISTORY: Adenoidectomy, cholecystectomy, cardiac catheterization, stent placement, hernia repair, orthopedic surgery, tonsillectomy, bilateral carpal tunnel surgery, bone spur removal. SOCIAL HISTORY: Denied any smoking, alcohol abuse or any drug abuse. FAMILY HISTORY: Significant for myocardial infarction and mother had CVA, diabetes mellitus. Home medications include dicyclomine, levothyroxine, omeprazole, metformin, ( ), acyclovir, clonazepam, ondansetron, tamsulosin, amlodipine, Senna, tacrolimus and aspirin. ALLERGIES: No known drug allergies. PHYSICAL EXAMINATION: VITAL SIGNS: [id number], pulse of 70, respirations 18, blood pressure 151/71, saturating at 97% on room air. GENERAL: The patient is alert and oriented x3, not in any acute distress. Well developed, well nourished. HEENT: Pupils are round and equally reacting to light. EOMI. No scleral icterus. No conjunctival pallor. Normocephalic, atraumatic. No pharyngeal erythema. No thyromegaly. CARDIOVASCULAR: S1 and S2 present. No murmurs, rubs, or gallops. PULMONARY: Chest is clear to auscultation, no wheezing or crackles. ABDOMEN: Patient appears to have a hyper-exacerbated tenderness in the left lower quadrant. MUSCULOSKELETAL: No joint swelling or deformity. EXTREMITIES: No cyanosis, clubbing, or pedal edema. NEUROLOGICAL: Gross neurological examination did not reveal any focal deficits. SKIN: No rashes. LABORATORY DATA: CBC, CMP are abnormal for elevated chloride of 110 due to IV fluids. Creatinine of 1.30. I do not know his baseline creatinine at this point of time. CT of the abdomen as mentioned above. ASSESSMENT AND PLAN: 1. Abdominal pain possibly related to colitis ischemic or infectious. Patient is on IV antibiotics and Gastroenterology evaluated the patient. Further management regarding colonoscopy or upper GI endoscopy as per Gastroenterology. Clostridium difficile will be obtained whenever he can collect his stool. Since he was asked to collect stool the patient has not had any diarrhea or blood in the stool. 2. Myelodysplastic syndrome with history of bone cancer in the past, which is in remission. 3. Chronic anemia, probably appears to be anemia of chronic disease. 4. Hypothyroidism. 5. Diabetes mellitus. 6. Depression. 7. Benign prostatic hypertrophy. 8. Hypertension. For above mentioned chronic medical problems, will go ahead and continue his home medications. ( ) with CKD stage II to III. Will continue to monitor hemoglobin, monitor for any GI bleed. If patient is able to tolerate diet or if he does not have any GI bleed or diarrhea, patient can probably can discharged tomorrow. I will leave the decision of antibiotic to Gastroenterology. Further management per Gastroenterology.
[2016-12-27 19:51] LABS: Glucose,Whole Blood 106 mg/dL (75-99)
[2016-12-27] MEDS: NORTRIPTYLINE 25 MG CAP PO SCH (19:58)
[2016-12-27] MEDS: ASPIRIN 81 MG CHEW PO SCH (19:59)
[2016-12-27] MEDS: TAMSULOSIN 0.4 MG CAP.ER.24H PO SCH (19:59)
[2016-12-27] MEDS: HYDROcodone/APAP 5-325MG 1 EACH TAB PO PRN (19:59)
[2016-12-28] MEDS: SODIUM CHLORIDE 0.9% 1,000 ML IV SCH (03:41)
[2016-12-28] MEDS: LEVOTHYROXINE 100 MCG TAB PO SCH (05:37)
[2016-12-28] MEDS: HYDROcodone/APAP 5-325MG 1 EACH TAB PO PRN (06:08)
[2016-12-28 06:48] LABS: Glucose,Whole Blood 96 mg/dL (75-99)
[2016-12-28 07:13] LABS: Basophils % (A) 0 %; CH 30.8; CHCM 33.5; Eosinophils # (A) 0.2 k/uL (0-0.7); Eosinophils % (A) 7 %; HCT 34.7 % (39.0-53.0); HDW 2.72; HGB 11.3 gm/dL (13.0-17.5); Luc # (Auto) 0.11; Luc % (Auto) 3; Lymphocytes # (A) 0.8 k/uL (1.0-4.8); Lymphocytes % (A) 23 %; MCH 30.1 pg (25.0-35.0); MCHC 32.6 g/dL (31.0-37.0); MCV 92.4 fL (80.0-100.0); Mean Platelet Volume 7.7; Monocytes # (A) 0.3 k/uL (0-1.0); Monocytes % (A) 9 %; Neutrophils # (A) 2.1 k/uL (1.3-7.7); Neutrophils % (A) 59 %; RBC 3.76 m/uL (4.30-5.90); RDW 13.6 % (11.5-15.5); WBC 3.5 k/uL (3.8-10.6); WBC (Perox) 3.78
[2016-12-28 07:22] LABS: Calcium 8.6 mg/dL (8.4-10.2)
[2016-12-28] MEDS: DICYCLOMINE 20 MG TAB PO SCH (08:05)
[2016-12-28] MEDS: ACYCLOVIR 200 MG CAP PO SCH (08:05)
[2016-12-28] MEDS: METOPROLOL SUCCINATE (ER) 100 MG TAB.ER.24H PO SCH (08:05)
[2016-12-28] MEDS: PANTOPRAZOLE 40 MG TABLET PO SCH (08:05)
[2016-12-28] MEDS: amLODIPine 5 MG TAB PO SCH (08:06)
[2016-12-28] MEDS: TACROLIMUS 0.5 MG CAP PO SCH (08:06)
[2016-12-28] MEDS: metFORMIN 500 MG TAB PO SCH (08:06)
[2016-12-28] MEDS: metroNIDAZOLE-NS PMX 500 MG in SALINE 1 100ML.BAG IVPB SCH (08:21)
[2016-12-28 11:34] VITALS: BP 161/76; PULSE 72; RESP 18; TEMP 97.5
[2016-12-28 12:03] LABS: Glucose,Whole Blood 90 mg/dL (75-99)
--- NOTE | 2016-12-28 14:21 | PN ---
DATE OF SERVICE: 12/28/2016 Patient is a 71-year-old pleasant white male admitted to the hospital with acute onset of abdominal pain followed by bloody diarrhea for the last 2 days' duration. CAT scan of the abdomen showed thickening of the left colon, suspicious for colitis. He was started on empiric antibiotics with IV Flagyl and Levaquin. Patient is doing better. He still has abdominal discomfort, but the bleeding and diarrhea has completely resolved. In fact, he had only one solid bowel movement this morning. Still complains of abdominal pain diffusely all over the abdomen most of the left lower quadrant area. On physical examination, he appears comfortable in no apparent distress. Vital signs are stable. Blood pressure is 142/68, pulse rate 74, temperature 97.3. HEENT examination unremarkable. Conjunctive pink. Sclerae anicteric. Oral cavity, no lesions. NECK: No JVD or lymph node enlargement. Chest was clear to auscultation. HEART: Regular rate and rhythm. ABDOMEN: Soft, mild tenderness in the left lower quadrant and suprapubic area. EXTREMITIES: No pedal edema. SKIN: No rashes. NEURO: He is alert and oriented x3. No focal deficits. LABS: WBC and 3.5, hemoglobin 11.3, and platelets are normal. Basic metabolic panel is within normal limits. IMPRESSION: Acute colitis, possibly infectious in etiology. Reviewed CT of the abdomen results with the patient. At this time on empiric antibiotics with IV Levaquin and Flagyl and the diarrhea has completely resolved. He still has persistent abdominal discomfort pain. RECOMMENDATIONS: 1. Advance diet gradually. 2. Continue with IV antibiotics. 3. He can be discharged home in the next 24 hours. Thank you for this consultation.
--- NOTE | 2016-12-28 18:44 | DS ---
DATE OF ADMISSION: 12/26/2016 DATE OF DISCHARGE: 12/28/2016 Patient is a 71-year-old admitted with diarrhea and blood in the stools was not evident since yesterday morning. Patient is otherwise clinically doing well. I discussed with Dr. Sowmya Patel and the patient will be discharged on 5 days of metronidazole and ciprofloxacin for possibility of infectious colitis. Patient was seen and examined on the day of discharge. PHYSICAL EXAMINATION: VITAL SIGNS: Stable. GENERAL: The patient is alert and oriented x3, not in any acute distress. Well developed, well nourished. HEENT: Pupils are round and equally reacting to light. EOMI. No scleral icterus. No conjunctival pallor. Normocephalic, atraumatic. No pharyngeal erythema. No thyromegaly. CARDIOVASCULAR: S1 and S2 present. No murmurs, rubs, or gallops. PULMONARY: Chest is clear to auscultation, no wheezing or crackles. ABDOMEN: Soft, nontender, nondistended, normoactive bowel sounds. No palpable organomegaly. MUSCULOSKELETAL: No joint swelling or deformity. EXTREMITIES: No cyanosis, clubbing, or pedal edema. NEUROLOGICAL: Gross neurological examination did not reveal any focal deficits. SKIN: No rashes. FINAL DIAGNOSES: 1. Abdominal pain, probably related to ischemic versus infectious colitis. 2. Myelodysplastic syndrome resulting in chronic anemia. 3. Hypothyroidism. 4. Chronic kidney disease stage 3 secondary to diabetic nephropathy. 5. Depression. 6. Benign prostatic hypertrophy. 7. Hypertension. DISCHARGE MEDICATIONS: Please refer to my depart summary. Patient will follow with Dr. Micheal Adamson in about 3 to 7 days. Activity as tolerated. Cardiac and diabetic 1800-calorie diet.
== END 2016-12-28 12:53 | disposition home or self-care (01) ==
LOC: EC 11:04 → 3OBS 13:54 → 3SUR 12-27 18:39
PROVIDERS: ADMIT Family Medicine; ATTEND Family Medicine
DX: R10.32 Left lower quadrant pain (principal); D46.9 Myelodysplastic syndrome, unspecified; E03.9 Hypothyroidism, unspecified; I12.9 Hypertensive chronic kidney disease with stage 1 through stage 4 chronic kidney disease, or unspecified chronic kidney disease; N18.3 Chronic kidney disease, stage 3 (moderate); E11.21 Type 2 diabetes mellitus with diabetic nephropathy; E11.22 Type 2 diabetes mellitus with diabetic chronic kidney disease; F32.9 Major depressive disorder, single episode, unspecified; N40.0 Benign prostatic hyperplasia without lower urinary tract symptoms; E78.5 Hyperlipidemia, unspecified; I25.10 Atherosclerotic heart disease of native coronary artery without angina pectoris; I25.2 Old myocardial infarction; K21.9 Gastro-esophageal reflux disease without esophagitis; Z79.899 Other long term (current) drug therapy; Z85.830 Personal history of malignant neoplasm of bone; Z86.718 Personal history of other venous thrombosis and embolism; Z87.442 Personal history of urinary calculi; Z92.21 Personal history of antineoplastic chemotherapy; Z94.81 Bone marrow transplant status; Z95.5 Presence of coronary angioplasty implant and graft; Z79.2 Long term (current) use of antibiotics; Z79.82 Long term (current) use of aspirin; M19.90 Unspecified osteoarthritis, unspecified site; Z79.84 Long term (current) use of oral hypoglycemic drugs
CPT/HCPCS: 36415; 80053; 80048; 83036; 85025 ×2; 82272; 81001; 87324; 74177; 99285; 96375 ×2; 96376; 96361 ×2; G0378 ×3; Q9967; J2405; J2270 ×2; J1956 ×2; 96365; 96366

== ENCOUNTER 2017-01-10 10:50 | Observation (INO) | payer MEDICARE, OTHER ==
[2017-01-10] MEDS ORDERED: KETOROLAC 30 MG/ML 1 ML VIAL IVP STA (11:10)
--- NOTE | 2017-01-10 11:23 | ED ---
Chest Pain HPI - General Chief Complaint: Chest Pain Stated Complaint: chest and back pain Time Seen by Provider: 01/10/17 10:58 Source: patient, RN notes reviewed Mode of arrival: ambulatory Limitations: no limitations - History of Present Illness Initial Comments: This is a 71-year-old male with a history of heart disease and 6 previous stents with the last one being in November of this year who presents from the office with complaints of chest pain. He states he has chronic right lower quadrant pain it is had for about 4 years and his not with any diagnosis but today while in the office getting a regular checkup he had pain going up into his chest and down toward his right arm. Sharp in nature not like any pain is had with his previous cardiac events. It does increase with movements and deep breathing. He's had no fevers chills sweats cough or other symptoms he states the pain is about 6/10 in severity. He also states he was hit in the right I/4 red by a crowbar about a week ago when he was removing drywall. He states he was evaluated for that and does not believe this has anything to do with it. He did have an evaluation in the emergency Department on that date. He has no other complaints at this time MD Complaint: chest pain - Related Data Home Medications Medication Instructions Recorded Confirmed Dicyclomine HCl 20 mg PO DAILY 05/24/14 01/10/17 Levothyroxine Sodium [Synthroid] 100 mcg PO DAILY 05/24/14 01/10/17 Omeprazole 40 mg PO DAILY 05/24/14 01/10/17 metFORMIN HCL 1,000 mg PO BID 05/24/14 01/10/17 Nortriptyline [Pamelor] 25 mg PO HS 02/23/15 01/10/17 Acyclovir 400 mg PO BID 10/11/16 01/10/17 LORazepam [Ativan] 0.5 mg PO Q6H PRN 10/11/16 01/10/17 Metoprolol Succinate (ER) [Toprol 100 mg PO DAILY 10/11/16 01/10/17 Xl] Tamsulosin [Flomax] 0.4 mg PO HS 10/11/16 01/10/17 amLODIPine [Norvasc] 5 mg PO DAILY 10/11/16 01/10/17 Tacrolimus [Prograf] 0.5 mg PO DAILY 12/16/16 01/10/17 Aspirin EC [Ecotrin Low Dose] 81 mg PO HS 12/26/16 01/10/17 Allergies Allergy/AdvReac Type Severity Reaction Status Date / Time No Known Allergies Allergy Verified 01/10/17 11:53 Review of Systems ROS Statement: Those systems with pertinent positive or pertinent negative responses have been documented in the HPI. ROS Other: All systems not noted in ROS Statement are negative. EKG Findings - EKG Results: EKG: interpreted by ERMD, sinus rhythm, normal axis, normal QRS, normal ST/T, no acute changes (EKG shows normal sinus rhythm of 76 TX interval of 166 QRS duration 92 QT/QTC of 380/427 t-wave changes) Past Medical History Past Medical History: Coronary Artery Disease (CAD), Cancer, Chest Pain / Angina , Diabetes Mellitus, Deep Vein Thrombosis (DVT), GERD/Reflux, GI Bleed, Hypertension, Myocardial Infarction ([place]), Osteoarthritis (OA), Prostate Disorder , Renal Disease, Thyroid Disorder Additional Past Medical History / Comment(s): 2014 diagnosed with bone cancer after found to have cancerous tumor on his back-removed and pt had chemo, 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 Last Myocardial Infarction Date:: 2014 History of Any Multi-Drug Resistant Organisms: None Reported Past Surgical History: Adenoidectomy, Cholecystectomy, Heart Catheterization With Stent, Hernia Repair, Orthopedic Surgery, Tonsillectomy Additional Past Surgical History / Comment(s): Bilateral carpal tunnel, bone spur removals to bilateral heels and FEET, X6 cardiac STENTS, RT KNEE BONE SPURS , CATARACTS JA with lens implants, JA INGUINAL HERNIA REPAIR AND UMBILLICAL. removal of malignant tumor from back Past Anesthesia/Blood Transfusion Reactions: No Reported Reaction Additional Past Anesthesia/Blood Transfusion Reaction / Comment(s): Pt states he has received blood in the past without reaction. Date of Last Stent Placement:: 2014 Past Psychological History: Depression Additional Psychological History / Comment(s): Pt states he has a brother who is in a wheelchair that lives with him. Pt is independent. He drives. Smoking Status: Never smoker Past Alcohol Use History: None Reported Past Drug Use History: None Reported - Past Family History Father Family Medical History: Myocardial Infarction ([place]) Additional Family Medical History / Comment(s): PTBA Mother Family Medical History: CVA/TIA, Diabetes Mellitus Additional Family Medical History / Comment(s): Mother of a CVA at the age of 82 yrs. Brother(s) Family Medical History: Cancer General Exam - General Exam Comments Initial Comments: This is a well-developed well-nourished awake alert oriented 3 male he does demonstrate a Veto Coma Scale of 15 Limitations: no limitations General appearance: alert, in no apparent distress Head exam: Present: normocephalic, normal inspection, other (Abrasions noted above the superior left orbit no step-off or crepitation) Eye exam: Present: normal appearance, PERRL, EOMI. Absent: scleral icterus, conjunctival injection, periorbital swelling ENT exam: Present: normal exam, mucous membranes moist Neck exam: Present: normal inspection. Absent: tenderness, meningismus, lymphadenopathy Respiratory exam: Present: normal lung sounds bilaterally, chest wall tenderness (Reproducible tenderness palpation along the costochondral costal sternal margins.). Absent: respiratory distress, wheezes, rales, rhonchi, stridor Cardiovascular Exam: Present: regular rate, normal rhythm, normal heart sounds. Absent: systolic murmur, diastolic murmur, rubs, gallop, clicks GI/Abdominal exam: Present: soft, normal bowel sounds. Absent: distended, tenderness, guarding, rebound, rigid Extremities exam: Present: normal inspection, full ROM, normal capillary refill. Absent: tenderness, pedal edema, joint swelling, calf tenderness Back exam: Present: normal inspection Neurological exam: Present: alert, oriented X3, CN II-XII intact Psychiatric exam: Present: normal affect, normal mood Skin exam: Present: warm, dry, intact, normal color. Absent: rash Course Vital Signs 01/10/17 01/10/17 01/10/17 10:53 12:38 13:14 Temperature 97.2 F L 97.7 F Pulse Rate 61 74 69 Respiratory 20 16 18 Rate Blood Pressure 142/105 162/77 143/82 O2 Sat by Pulse 92 L 97 100 Oximetry 01/10/17 01/10/17 01/10/17 13:19 13:31 13:48 Temperature Pulse Rate 81 78 77 Respiratory 18 18 18 Rate Blood Pressure 118/60 111/60 133/62 O2 Sat by Pulse 95 97 100 Oximetry 01/10/17 14:16 Temperature Pulse Rate 67 Respiratory 18 Rate Blood Pressure 112/64 O2 Sat by Pulse 100 Oximetry - Reevaluation(s) Reevaluation #1: 01/10/17 14:19 H and did not get relief from his pain with Toradol but they get relief from nitroglycerin Chest Pain MDM - MDM I did review the imaging no acute findings patient did receive nitroglycerin which did stop his pain the last reveals given earlier did not. He otherwise is demonstrating an unremarkable symptom complex at this time. He will be admitted Critical Care Time Critical Care Time: Yes Critical Care Time: 31 minutes which includes initial presentation with history physical lab and x- rays reevaluation the patient response to therapy and several occasions discussion with the admitting physician. Admission orders and documentation of the above. Disposition Clinical Impression: Unstable angina pectoris, Hypomagnesemia Disposition: HOME SELF-CARE Condition: Stable
[2017-01-10 11:37] LABS: Basophils % (A) 1 %; CH 30.6; CHCM 32.6; Eosinophils # (A) 0.1 k/uL (0-0.7); Eosinophils % (A) 3 %; HCT 39.4 % (39.0-53.0); HDW 2.58; HGB 12.7 gm/dL (13.0-17.5); Luc # (Auto) 0.15; Luc % (Auto) 4; Lymphocytes # (A) 0.9 k/uL (1.0-4.8); Lymphocytes % (A) 23 %; MCH 30.4 pg (25.0-35.0); MCHC 32.3 g/dL (31.0-37.0); MCV 94.2 fL (80.0-100.0); Mean Platelet Volume 7.3; Monocytes # (A) 0.3 k/uL (0-1.0); Monocytes % (A) 7 %; Neutrophils # (A) 2.3 k/uL (1.3-7.7); Neutrophils % (A) 62 %; RBC 4.18 m/uL (4.30-5.90); RDW 13.8 % (11.5-15.5); WBC 3.8 k/uL (3.8-10.6)
--- NOTE | 2017-01-10 11:44 | XR ---
EXAMINATION TYPE: XR chest 2V DATE OF EXAM: 01/10/2017 11:36 AM HISTORY: Chest Pain. REFERENCE: Previous study dated 12/16/2016. FINDINGS: Lung volumes are prominent. The lungs are clear. Pleural spaces are clear. The heart is not enlarged. 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 IMPRESSION: 1. NO ACUTE INTRATHORACIC ABNORMALITY. 2. DEGENERATIVE CHANGES IN THE AC JOINTS AND DORSAL SPINE.
[2017-01-10 11:46] LABS: Magnesium 1.5 mg/dL (1.6-2.3); Potassium 4.7 mmol/L (3.5-5.1); Total Bilirubin 0.4 mg/dL (0.2-1.3); Total Protein 6.7 g/dL (6.3-8.2)
[2017-01-10 12:01] LABS: Creatine Kinase 97 U/L (55-170)
[2017-01-10 12:14] LABS: Creatine Kinase MB 1.2 ng/mL (0.0-2.4); Troponin I <0.012 ng/mL (0.000-0.034)
[2017-01-10 12:18] LABS: INR 1.1 (<1.1); Partial Thromboplastin Time 24.9 sec (22.0-30.0); Prothrombin Time 11.3 sec (9.0-12.0)
[2017-01-10] MEDS: NITROGLYCERIN SL TABS 0.4 MG TAB SUBLINGUAL STA ×3 (13:14→13:32)
[2017-01-10] MEDS ORDERED: MAGNESIUM SULFATE-D5W PMX 1 GM in DEXTROSE/WATER 1 100ML.BAG IVPB ONE (14:01)
[2017-01-10] MEDS ORDERED: HEPARIN SODIUM,PORCINE 5,000 UNIT/ML 1 ML VIAL IV ONE (14:21)
[2017-01-10] MEDS ORDERED: NITROGLYCERIN SL TABS 0.4 MG TAB SUBLINGUAL PRN (14:21)
[2017-01-10] MEDS ORDERED: LORazepam 0.5 MG TAB PO PRN (14:27)
[2017-01-10] MEDS ORDERED: HEPARIN SODIUM,PORCINE/D5W PMX 25,000 UNIT in DEXTROSE/WATER 1 500ML.BAG IV SCH (14:30)
--- NOTE | 2017-01-10 15:02 | ED ---
Medical Decision Making - Lab Data Result diagrams: 01/10/17 11:23 01/10/17 11:23 Lab Results 01/10/17 01/10/17 01/10/17 Range/Units 11:23 11:23 11:23 WBC 3.8 (3.8-10.6) k/uL RBC 4.18 L (4.30-5.90) m/uL Hgb 12.7 L (13.0-17.5) gm/dL Hct 39.4 (39.0-53.0) % MCV 94.2 (80.0-100.0) fL MCH 30.4 (25.0-35.0) pg MCHC 32.3 (31.0-37.0) g/dL RDW 13.8 (11.5-15.5) % Plt Count 143 L (150-450) k/uL Neutrophils % 62 % Lymphocytes % 23 % Monocytes % 7 % Eosinophils % 3 % Basophils % 1 % Neutrophils # 2.3 (1.3-7.7) k/uL Lymphocytes # 0.9 L (1.0-4.8) k/uL Monocytes # 0.3 (0-1.0) k/uL Eosinophils # 0.1 (0-0.7) k/uL Basophils # 0.0 (0-0.2) k/uL PT (9.0-12.0) sec INR (<1.1) APTT (22.0-30.0) sec Sodium 143 (137-145) mmol/L Potassium 4.7 (3.5-5.1) mmol/L Chloride 108 H (98-107) mmol/L Carbon Dioxide 24 (22-30) mmol/L Anion Gap 11 mmol/L BUN 21 H (9-20) mg/dL Creatinine 1.53 H (0.66-1.25) mg/dL Est GFR (MDRD) Af Amer 55 (>60 ml/min/1.73 sqM) Est GFR (MDRD) Non-Af 45 (>60 ml/min/1.73 sqM) Glucose 99 (74-99) mg/dL Calcium 9.0 (8.4-10.2) mg/dL Magnesium 1.5 L (1.6-2.3) mg/dL Total Bilirubin 0.4 (0.2-1.3) mg/dL AST 27 (17-59) U/L ALT 32 (21-72) U/L Alkaline Phosphatase 62 (38-126) U/L Total Creatine Kinase 97 (55-170) U/L CK-MB (CK-2) 1.2 (0.0-2.4) ng/mL CK-MB (CK-2) Rel Index 1.2 Troponin I <0.012 (0.000-0.034) ng/mL NT-Pro-B Natriuret Pep pg/mL Total Protein 6.7 (6.3-8.2) g/dL Albumin 4.1 (3.5-5.0) g/dL Amylase 43 (30-110) U/L Lipase 45 (23-300) U/L 01/10/17 01/10/17 Range/Units 11:23 11:23 WBC (3.8-10.6) k/uL RBC (4.30-5.90) m/uL Hgb (13.0-17.5) gm/dL Hct (39.0-53.0) % MCV (80.0-100.0) fL MCH (25.0-35.0) pg MCHC (31.0-37.0) g/dL RDW (11.5-15.5) % Plt Count (150-450) k/uL Neutrophils % % Lymphocytes % % Monocytes % % Eosinophils % % Basophils % % Neutrophils # (1.3-7.7) k/uL Lymphocytes # (1.0-4.8) k/uL Monocytes # (0-1.0) k/uL Eosinophils # (0-0.7) k/uL Basophils # (0-0.2) k/uL PT 11.3 (9.0-12.0) sec INR 1.1 (<1.1) APTT 24.9 (22.0-30.0) sec Sodium (137-145) mmol/L Potassium (3.5-5.1) mmol/L Chloride (98-107) mmol/L Carbon Dioxide (22-30) mmol/L Anion Gap mmol/L BUN (9-20) mg/dL Creatinine (0.66-1.25) mg/dL Est GFR (MDRD) Af Amer (>60 ml/min/1.73 sqM) Est GFR (MDRD) Non-Af (>60 ml/min/1.73 sqM) Glucose (74-99) mg/dL Calcium (8.4-10.2) mg/dL Magnesium (1.6-2.3) mg/dL Total Bilirubin (0.2-1.3) mg/dL AST (17-59) U/L ALT (21-72) U/L Alkaline Phosphatase (38-126) U/L Total Creatine Kinase (55-170) U/L CK-MB (CK-2) (0.0-2.4) ng/mL CK-MB (CK-2) Rel Index Troponin I (0.000-0.034) ng/mL NT-Pro-B Natriuret Pep 121 pg/mL Total Protein (6.3-8.2) g/dL Albumin (3.5-5.0) g/dL Amylase (30-110) U/L Lipase (23-300) U/L Disposition Clinical Impression: Unstable angina pectoris, Hypomagnesemia Disposition: ADMITTED IP TO THIS HOSP Condition: Stable Referrals: Micheal Adamson MD [Primary Care Provider] - 1-2 days
[2017-01-10] MEDS: SODIUM CHLORIDE 0.9% 1,000 ML IV SCH (15:18)
[2017-01-10 17:01] LABS: Creatine Kinase 92 U/L (55-170)
[2017-01-10 17:06] LABS: Glucose,Whole Blood 115 mg/dL (75-99)
[2017-01-10 17:13] LABS: Creatine Kinase MB 1.2 ng/mL (0.0-2.4); Troponin I <0.012 ng/mL (0.000-0.034)
[2017-01-10] MEDS: INSULIN LISPRO (humaLOG) 300 UNIT/3 ML VIAL SQ SCH ×2 (17:33→20:16)
[2017-01-10] MEDS: NITROGLYCERIN OINT 1 INCH/GM PACKET TOPICAL SCH (18:42)
[2017-01-10] MEDS: ACETAMINOPHEN TAB 325 MG TAB PO PRN (18:56)
[2017-01-10] MEDS: NORTRIPTYLINE 25 MG CAP PO SCH (20:11)
[2017-01-10] MEDS: ACYCLOVIR 200 MG CAP PO SCH (20:11)
[2017-01-10] MEDS: metFORMIN 500 MG TAB PO SCH (20:11)
[2017-01-10] MEDS: TAMSULOSIN 0.4 MG CAP.ER.24H PO SCH (20:11)
[2017-01-10 20:14] LABS: Glucose,Whole Blood 104 mg/dL (75-99)
--- NOTE | 2017-01-10 20:32 | HP ---
I am covering for Dr. Micheal Adamson. DATE OF ADMISSION: 01/10/2017 CHIEF COMPLAINT: Abdominal and chest pain. HISTORY OF PRESENT ILLNESS: This 71-year-old gentleman with a past medical history of CAD, history of diabetes mellitus, history of DVT, history of GERD, history of GI bleed, history of prostate disorder, history of renal disorder, thyroid disorder, history of CAD with stent, being followed by Dr. Micheal Adamson in the outpatient setting, was recently found to have bone cancer. Apparently the patient had chemotherapy and bone marrow transplant in [facility]. Subsequently patient had myocardial infarction as well, and subsequently apparently had multiple stents placed in [facility] also. Results are not available. Currently the patient is complaining of pain that started in the right groin area which is a sharp, shooting type of pain which radiates up the abdomen along the epigastrium and up to the right side of the chest. The patient came to [facility] and was admitted for further evaluation and treatment. The chest pain about 6 to 10 in severity. There is no association with exertion. No evidence of any associated palpitation, shortness of breath, sweating. There is no history of any fever, rigors or chills. No history of headache, loss of consciousness or seizures, either. PAST MEDICAL HISTORY: 1. History of CAD, stent. 2. History of DVT. 3. History of GERD. 4. GI bleed. 5. Hypertension. 6. Myocardial infarction. HOME MEDICATIONS: 1. Metformin 1000 mg p.o. b.i.d. 2. Norvasc 5 mg p.o. daily. 3. Flomax 0.5 at bedtime. 4. Prograf 0.5 mg daily. 5. Lopressor 40 mg daily. 6. Pamelor 25 mg at bedtime. 7. Toprol XL 100 mg p.o. daily. 8. Synthroid 100 mcg p.o. daily. 9. Ativan 0.5 mg q.6 p.r.n. 10. Dicyclomine 20 mg p.o. daily. 11. Ecotrin 81 mg at bedtime. 12. Acyclovir 400 mg p.o. b.i.d. ALLERGIES: NONE. FAMILY HISTORY: History of myocardial infarction and PTCA. SOCIAL HISTORY: No history of smoking. No history of alcohol intake. REVIEW OF SYSTEMS: ENT: Diminished hearing. Diminished vision. CARDIOVASCULAR SYSTEM: As mentioned earlier. RESPIRATORY SYSTEM: As mentioned earlier. GI: As mentioned earlier. : No dysuria. NERVOUS SYSTEM: No numbness or weakness. ALLERGY/IMMUNOLOGY: No asthma, hayfever. MUSCULOSKELETAL: As mentioned earlier. HEMATOLOGY/ONCOLOGY: As mentioned earlier. ENDOCRINE: As mentioned earlier. CONSTITUTIONAL: As mentioned earlier. DERMATOLOGY: Negative. RHEUMATOLOGY: Negative. PSYCHIATRY: As mentioned earlier. PHYSICAL EXAMINATION: Patient is alert and oriented x3. Pulse is 72, blood pressure 177/89, respiration 18, temperature 97.7. Pulse ox 99% on room air. HEENT: Conjunctivae normal. Oral mucosa moist. NECK: No jugular venous distention. No carotid bruit. No lymph node enlargement. CARDIOVASCULAR SYSTEM: S1, S2 muffled. No S3. No S4. RESPIRATORY: Breath sounds diminished in the bases. A few scattered rhonchi. No crackles. ABDOMEN: Soft, obese, nontender. No mass palpable. Otherwise, mild diffuse discomfort on palpation, especially on the right side. No guarding. No rigidity. No ascites. Bowel sounds present. LEGS: No edema. No swelling. NERVOUS SYSTEM: Higher functions as mentioned earlier. Moves all 4 limbs. No focal motor or sensory deficit. LYMPHATICS: No lymph node palpable in neck, axillae or groin. SKIN: No ulcer, rash, bleeding. LABS: WBC 3.8, hemoglobin 12.7, platelets 143. Creatinine is 1.53. Chest x-ray showed no acute abnormality; DJD of the dorsal spine. EKG showed nonspecific ST-T changes; no acute abnormality. ASSESSMENT: 1. Chest pain for evaluation, possibly musculoskeletal. Rule out myocardial infarction and coronary artery disease. 2. Abdominal pain and groin pain for evaluation. 3. History of coronary artery disease and multiple stents. 4. History of bone cancer and bone marrow transplantation. 5. History of diabetes mellitus, type 2. 6. History of coronary artery disease and stent. 7. History of deep venous thrombosis. 8. Gastroesophageal reflux disease. 9. History of gastrointestinal bleed. 10. History of myocardial infarction. 11. History of degenerative joint disease. 12. History of prostate disorder. 13. History of adenoidectomy. 14. History of cholecystectomy. 15. History of carpal tunnel syndrome. 16. History of depression. 17. FULL CODE. RECOMMENDATIONS AND DISCUSSION: In this 71-year-old gentleman who presented with multiple complex medical issues, we will monitor the patient closely, continue the current medications, continue symptomatic treatment. Rule out myocardial infarction. Cardiology consultation. Unstable angina protocol. I would also recommend a D-dimer; if D-dimer is positive, recommend CT angiogram of the chest to rule out the possibility of pulmonary embolism. Otherwise, continue to monitor. Prognosis guarded. Further recommendations to follow. The patient also had abdominal features, rather chronic. I recommend continued followup in the outpatient setting as well. If the pain is persistent, a CT scan of the abdomen and pelvis also may be sought. Otherwise, resume the rest of the medications. Discussed with the patient, who understands and agrees. Further recommendations to follow. MTDD
[2017-01-10] MEDS: HYDROcodone/APAP 5-325MG 1 EACH TAB PO PRN (22:02)
[2017-01-11 00:09] LABS: Creatine Kinase 91 U/L (55-170)
[2017-01-11 00:23] LABS: Troponin I <0.012 ng/mL (0.000-0.034)
[2017-01-11 00:30] LABS: Creatine Kinase MB 1.2 ng/mL (0.0-2.4)
[2017-01-11] MEDS: NITROGLYCERIN OINT 1 INCH/GM PACKET TOPICAL SCH ×5 (00:35→23:12)
[2017-01-11] MEDS: LEVOTHYROXINE 100 MCG TAB PO SCH (05:11)
[2017-01-11 06:54] LABS: Glucose,Whole Blood 86 mg/dL (75-99)
[2017-01-11 07:14] LABS: Cholesterol 148 mg/dL (<200); HDL Cholesterol 51 mg/dL (40-60); Triglycerides 106 mg/dL (<150)
[2017-01-11] MEDS: INSULIN LISPRO (humaLOG) 300 UNIT/3 ML VIAL SQ SCH ×4 (07:40→21:10)
[2017-01-11] MEDS: HYDROcodone/APAP 5-325MG 1 EACH TAB PO PRN ×3 (07:53→20:37)
[2017-01-11 11:08] LABS: Calcium 8.8 mg/dL (8.4-10.2); Potassium 4.6 mmol/L (3.5-5.1)
--- NOTE | 2017-01-11 11:15 | P.CRDCN ---
History of Present Illness Consult reason: chest pain History of present illness: This patient is seen for the evaluation of chest pain patient's emergency room records as well as the past medical records are reviewed. This patient has multiple complex problem. Came to the emergency room with the complaint of kind referral pain started in the right groin and subsequently it radiated to the chest pain was a sharp and shooting pain. End radiated up to the abdomen epigastric and the right side of the chest. Symptoms did not had any nausea or vomiting. This patient has been found to have a bone marrow cancer and the patient had a bone marrow transplant and chemotherapy. Please see subsequently had a myocardial infarction and multiple stents placed in the [facility] for details of which are not available. 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 Not been having any significant exertional chest pain. Patient has a past history of for hypertension myocardial infarction DVT and coronary artery disease. Past Medical History Past Medical History: Coronary Artery Disease (CAD), Cancer, Chest Pain / Angina , Diabetes Mellitus, Deep Vein Thrombosis (DVT), GERD/Reflux, GI Bleed, Hypertension, Myocardial Infarction (AL), Osteoarthritis (OA), Prostate Disorder , Renal Disease, Thyroid Disorder Additional Past Medical History / Comment(s): 2014 diagnosed with bone cancer after found to have cancerous tumor on his back-removed and pt had chemo, 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 [facility], chronic intermittedt R lower abdominal pain with etiology unknown-scheduled to have colonoscopy next month, NIDDM type II, BPH, rectal bleed, diverticulosis, kidney stones, pt denies any kidney disease other than stones. Last Myocardial Infarction Date:: 2014 History of Any Multi-Drug Resistant Organisms: None Reported Past Surgical History: Adenoidectomy, Heart Catheterization With Stent, Hernia Repair, Orthopedic Surgery, Tonsillectomy Additional Past Surgical History / Comment(s): Bilateral carpal tunnel, bone spur removals to bilateral heels and FEET, X6 cardiac STENTS, RT KNEE BONE SPURS , CATARACTS JA with lens implants, JA INGUINAL HERNIA REPAIR AND UMBILLICAL. removal of malignant tumor from back Past Anesthesia/Blood Transfusion Reactions: No Reported Reaction Additional Past Anesthesia/Blood Transfusion Reaction / Comment(s): Pt states he has received blood in the past without reaction. Date of Last Stent Placement:: 2014 Past Psychological History: Depression Additional Psychological History / Comment(s): Pt states he has a brother who is in a wheelchair that lives with him. Pt is independent. 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 no service,worked 37 years at [employer]. Smoking Status: Never smoker Past Alcohol Use History: None Reported Past Drug Use History: None Reported - Past Family History Father Family Medical History: Myocardial Infarction (AL) Additional Family Medical History / Comment(s): PTBA Mother Family Medical History: CVA/TIA, Diabetes Mellitus Additional Family Medical History / Comment(s): Mother of a CVA at the age of 82 yrs. Brother(s) Family Medical History: Cancer Medications and Allergies Home Medications Medication Instructions Recorded Confirmed Type Dicyclomine HCl 20 mg PO DAILY 05/24/14 01/10/17 History Levothyroxine Sodium [Synthroid] 100 mcg PO DAILY 05/24/14 01/10/17 History Omeprazole 40 mg PO DAILY 05/24/14 01/10/17 History metFORMIN HCL 1,000 mg PO BID 05/24/14 01/10/17 History Nortriptyline [Pamelor] 25 mg PO HS 02/23/15 01/10/17 History Acyclovir 400 mg PO BID 10/11/16 01/10/17 History LORazepam [Ativan] 0.5 mg PO Q6H PRN 10/11/16 01/10/17 History Metoprolol Succinate (ER) [Toprol 100 mg PO DAILY 10/11/16 01/10/17 History Xl] Tamsulosin [Flomax] 0.4 mg PO HS 10/11/16 01/10/17 History amLODIPine [Norvasc] 5 mg PO DAILY 10/11/16 01/10/17 History Tacrolimus [Prograf] 0.5 mg PO DAILY 12/16/16 01/10/17 History Aspirin EC [Ecotrin Low Dose] 81 mg PO HS 12/26/16 01/10/17 History Allergies Allergy/AdvReac Type Severity Reaction Status Date / Time No Known Allergies Allergy Verified 01/10/17 11:53 Physical Exam Vitals: Vital Signs Temp Pulse Pulse Resp BP BP Pulse Ox 01/11/17 08:00 98.0 F 71 16 149/78 96 01/11/17 04:00 98.1 F 68 18 123/69 96 01/11/17 00:00 70 18 01/10/17 23:47 71 18 125/69 96 01/10/17 19:55 66 18 01/10/17 19:24 97.9 F 66 18 132/76 95 01/10/17 16:00 72 18 01/10/17 15:56 97.7 F 72 18 177/89 99 01/10/17 15:13 97.0 F L 69 18 139/79 99 Intake and Output 01/10/17 01/11/17 01/11/17 22:59 06:59 14:59 Intake Total 760 516.667 Balance 760 516.667 Intake: IV 170 Heparin Sodium,Porcine/ 170 D5w Pmx 25,000 unit In Dextrose/Water 1 500ml. bag @ 9.76 UNITS/KG/HR 20 .01 mls/hr IV .Q24H JULIANA Rx#:[id number] Intake, IV Titration 160 346.667 Amount Heparin Sodium,Porcine/ 80 186.667 D5w Pmx 25,000 unit In Dextrose/Water 1 500ml. bag @ 9.76 UNITS/KG/HR 20 .01 mls/hr IV .Q24H JULIANA Rx#:[id number] Sodium Chloride 0.9% 1, 80 160 000 ml @ 20 mls/hr IV . Q24H JULIANA Rx#:[id number] Oral 600 Other: Voiding Method Toilet Toilet # Voids 2 2 Weight 103.1 kg 102.1 kg This patient is a fairly built fell in the wrist does not appear to be in any acute distress Head and ENT examination is negative. . Neck. Supple there is no increase in jugular venous pressure. Both the carotid pulses are felt. There is no bruit. Chest. Symmetrical. . Heart. First and second heart sounds are normal there is no evidence of any significant murmur. Lungs. Clinically clear to auscultation and percussion. Abdomen is soft Extremities. No edema. Pedal pulsations are not felt. EKG shows normal sinus rhythm without any acute ischemic changes. Cardiac enzymes are normal. Results 01/10/17 11:23 01/10/17 11:23 Cardiac Enzymes 01/10/17 01/10/17 Range/Units 16:30 23:19 CK-MB (CK-2) 1.2 1.2 (0.0-2.4) ng/mL Troponin I <0.012 <0.012 (0.000-0.034) ng/mL Coagulation 01/10/17 01/11/17 Range/Units 23:19 06:21 APTT 37.6 H 42.3 H (22.0-30.0) sec Lipids 01/11/17 Range/Units 06:21 Triglycerides 106 (<150) mg/dL Cholesterol 148 (<200) mg/dL HDL Cholesterol 51 (40-60) mg/dL Current Medications Generic Name Dose Route Start Last Admin Trade Name Freq PRN Reason Stop Dose Admin Acetaminophen 650 mg 01/10/17 18:43 01/10/17 18:56 Tylenol Tab PO 650 mg Q6HR PRN Administration Fever Hydrocodone Bitart/Acetaminophen 1 each 01/10/17 21:53 01/11/17 07:53 [place] 5-325 PO 1 each Q6HR PRN Administration Pain Acyclovir 400 mg 01/10/17 21:00 01/10/17 20:11 Zovirax PO 400 mg BID JULIANA Administration Amlodipine Besylate 5 mg 01/11/17 09:00 Norvasc PO DAILY JULIANA Aspirin 325 mg 01/11/17 09:00 Aspirin PO DAILY JULIANA Dicyclomine HCl 20 mg 01/11/17 09:00 Bentyl PO DAILY JULIANA Heparin Sodium/Dextrose 25,000 500 mls @ 20.01 mls/hr 01/10/17 14:30 00:38 unit/ IV Solution IV 11.75 units/kg/hr .Q24H JULIANA 24.09 mls/hr Protocol Titration 9.76 UNITS/KG/HR Sodium Chloride 1,000 mls @ 20 mls/hr 01/10/17 14:30 01/10/17 15:18 Saline 0.9% IV 20 mls/hr .Q24H JULIANA Administration Insulin Human Lispro 0 unit 01/10/17 17:30 01/11/17 07:40 Humalog SQ Not Given ACHS [facility] Protocol Levothyroxine Sodium 100 mcg 01/11/17 06:30 01/11/17 05:11 Synthroid PO 100 mcg DAILY@0630 JULIANA Administration Lorazepam 0.5 mg 01/10/17 14:27 Ativan PO Q6H PRN Anxiety Metformin HCl 1,000 mg 01/10/17 21:00 01/10/17 20:11 Glucophage PO 1,000 mg BID JULIANA Administration Metoprolol Succinate 100 mg 01/11/17 09:00 Toprol Xl PO DAILY [facility] Nitroglycerin 1 inch 01/10/17 18:00 01/11/17 05:10 Nitro-Bid Oint TOPICAL Not Given Q6HR [facility] Nitroglycerin 0.4 mg 01/10/17 14:21 01/11/17 09:21 Nitrostat SUBLINGUAL 0.4 mg Q5M PRN Administration Chest Pain Nortriptyline HCl 25 mg 01/10/17 21:00 01/10/17 20:11 Pamelor PO 25 mg HS JULIANA Administration Pantoprazole Sodium 40 mg 01/11/17 09:00 Protonix PO DAILY [facility] Tacrolimus 0.5 mg 01/11/17 09:00 Prograf PO DAILY [facility] Tamsulosin HCl 0.4 mg 01/10/17 21:00 01/10/17 20:11 Flomax PO 0.4 mg HS JULIANA Administration Intake and Output 01/10/17 01/11/17 01/11/17 22:59 06:59 14:59 Intake Total 760 516.667 Balance 760 516.667 Intake: IV 170 Heparin Sodium,Porcine/ 170 D5w Pmx 25,000 unit In Dextrose/Water 1 500ml. bag @ 9.76 UNITS/KG/HR 20 .01 mls/hr IV .Q24H JULIANA Rx#:[id number] Intake, IV Titration 160 346.667 Amount Heparin Sodium,Porcine/ 80 186.667 D5w Pmx 25,000 unit In Dextrose/Water 1 500ml. bag @ 9.76 UNITS/KG/HR 20 .01 mls/hr IV .Q24H JULIANA Rx#:[id number] Sodium Chloride 0.9% 1, 80 160 000 ml @ 20 mls/hr IV . Q24H JULIANA Rx#:[id number] Oral 600 Other: Voiding Method Toilet Toilet # Voids 2 2 Weight 103.1 kg 102.1 kg Assessment and Plan Plan: This patient chest pain is atypical pain patient started having pain in the groin and radiating up to the chest. Patient's EKGs and cardiac enzymes are normal. Patient has a known history of coronary artery disease with a prior history of multiple stent. 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
[2017-01-11 11:22] LABS: CH 30.7; CHCM 32.5; HCT 38.1 % (39.0-53.0); HDW 2.55; HGB 12.1 gm/dL (13.0-17.5); Immature Gran Flag Slight; MCH 30.3 pg (25.0-35.0); MCHC 31.9 g/dL (31.0-37.0); MCV 94.9 fL (80.0-100.0); Mean Platelet Volume 8.5; RBC 4.01 m/uL (4.30-5.90); RDW 13.7 % (11.5-15.5); WBC 3.2 k/uL (3.8-10.6)
[2017-01-11] MEDS: ACYCLOVIR 200 MG CAP PO SCH ×2 (11:43→20:36)
[2017-01-11] MEDS: metFORMIN 500 MG TAB PO SCH ×2 (11:45→20:36)
[2017-01-11 11:47] LABS: Add Differential Manual Differential
[2017-01-11 11:50] LABS: Manual Review Performed; Nucleated Red Blood Cells 1 /100 WBC (0-0); Total Cells Counted 100
[2017-01-11 12:02] VITALS: RESP 18
[2017-01-11 12:12] LABS: Glucose,Whole Blood 87 mg/dL (75-99)
--- NOTE | 2017-01-11 12:34 | P.PN ---
Progress Note - Text Patient seen and evaluated. He reports chronic abdominal pain for over [address] of the abdomen and pelvis reviewed. No acute abdomen on exam and he is tolerating diet. Pain is primarily scrotal, groin, suprapubic pain. Recommed follow-up as outpatient as care plan described. No acute surgical intervention. Patient cleared for discharge from surgical standpoint as he is tolerating regular diet. Please see full dictated report.
[2017-01-11 13:53] LABS: Hemoglobin A1C 5.7 % (4.2-6.1)
[2017-01-11] MEDS: ASPIRIN 325 MG TAB PO SCH (14:21)
[2017-01-11] MEDS: amLODIPine 5 MG TAB PO SCH (14:21)
[2017-01-11] MEDS: DICYCLOMINE 20 MG TAB PO SCH (14:22)
[2017-01-11] MEDS: TACROLIMUS 0.5 MG CAP PO SCH (14:22)
[2017-01-11] MEDS: METOPROLOL SUCCINATE (ER) 100 MG TAB.ER.24H PO SCH (14:22)
[2017-01-11] MEDS: PANTOPRAZOLE 40 MG TABLET PO SCH (14:23)
[2017-01-11] MEDS: SODIUM CHLORIDE 0.9% 1,000 ML IV SCH (14:29)
--- NOTE | 2017-01-11 15:24 | PN ---
DATE OF SERVICE: 01/11/2017 This 71-year-old gentleman who was admitted with chest pain, also complaining of abdominal pain. There is no fever, no cough at this time. On exam, alert and oriented x3. Pulse is 77, blood pressure 178/75, respirations 18, temperature 97.9, pulse ox 99% on room air. HEENT: Conjunctivae normal. NECK: No jugular venous distention. CARDIOVASCULAR: S1 and S2, muffled. RESPIRATORY: Breath sounds diminished at the bases. No rhonchi, no crackles. ABDOMEN: Soft, nontender. No mass palpable. LEGS: No edema, no swelling. NERVOUS SYSTEM: No focal deficits. LABS: Creatinine is 1.76. Otherwise, WBC is 3.2, hemoglobin is 12.1 and platelets are 124. ASSESSMENT: 1. Chest pain for evaluation, possible musculoskeletal, rule out myocardial infarction and coronary artery disease. 2. Abdominal pain and groin pain for evaluation. 3. History of coronary artery disease with multiple stents. 4. History of bone cancer with bone marrow transplantation. 5. Mild pancytopenia, possibly secondary from malignancy. 6. History of diabetes mellitus type 2. 7. History of coronary artery disease and stent. 8. History of deep venous thrombosis. 9. History of gastroesophageal reflux disease. 10. History of gastrointestinal bleed. 11. History of myocardial infarction. 12. History of degenerative joint disease. 13. History of prostate disorder. 14. History of adenoidectomy. 15. History of cholecystectomy. 16. History of carpal tunnel syndrome. 17. History of depression. 18. FULL CODE. RECOMMENDATIONS AND DISCUSSION: Recommend to continue current medications. Continue with monitoring and symptomatic treatment. Otherwise, at this time I would recommend to monitor the creatinine closely. Surgical consultation. Guarded prognosis. Follow up with Cardiology. Further recommendations to follow.
[2017-01-11 16:57] LABS: Glucose,Whole Blood 74 mg/dL (75-99)
--- NOTE | 2017-01-11 19:36 | ECHOF ---
Referral Reason:chest pain MEASUREMENTS -------- HEIGHT: 165.1 cm WEIGHT: 108.9 kg BP: RVIDd: 2.8 cm (< 3.3) IVSd: 1.2 cm (0.6 - 1.1) LVIDd: 4.1 cm (3.9 - 5.3) LVPWd: 1.0 cm (0.6 - 1.1) IVSs: 1.4 cm LVIDs: 3.3 cm LVPWs: 1.4 cm LA Diam: 4.0 cm (2.7 - 3.8) Ao Diam: 2.9 cm (2.0 - 3.7) AV Cusp: 1.5 cm (1.5 - 2.6) LA Diam: 4.1 cm (2.7 - 3.8) MV EXCURSION: 13.536 mm (> 18.000) MV EF SLOPE: 74 mm/s (70 - 150) EPSS: 1.1 cm MV E Ever: 0.82 m/s MV DecT: 286 ms MV A Ever: 0.96 m/s MV E/A Ratio: 0.86 AV maxP.25 mmHg AV meanP.76 mmHg AR PHT: 571 ms FINDINGS -------- Sinus rhythm. This was a technically adequate study. There is mild concentric left ventricular hypertrophy. Overall left ventricular systolic function is low-normal with, an EF between 50 - 55 %. The right ventricle is normal in size. The right atrial size is normal. There is mild aortic regurgitation. There is mild aortic stenosis present. Peak/mean gradient across the Aortic Valve is 24.25mmHg / 10.76mmHg. Mild mitral annular calcification present. Mild mitral regurgitation is present. Mild tricuspid regurgitation present. There is no evidence of pulmonary hypertension. The right ventricular systolic pressure, as measured by Doppler, is {RVSP}. There is no pulmonic regurgitation present. The aortic root size is normal. There is no pericardial effusion. CONCLUSIONS -------- 1. There is mild concentric left ventricular hypertrophy. 2. The right ventricular systolic pressure, as measured by Doppler, is {RVSP}. 3. There is no pulmonic regurgitation present. 4. The aortic root size is normal. 5. There is no pericardial effusion. 6. Overall left ventricular systolic function is low-normal with, an EF between 50 - 55 %. 7. There is mild aortic regurgitation. 8. There is mild aortic stenosis present. 9. Peak/mean gradient across the Aortic Valve is 24.25mmHg / 10.76mmHg. 10. Mild mitral annular calcification present. 11. Mild mitral regurgitation is present. 12. Mild tricuspid regurgitation present. 13. There is no evidence of pulmonary hypertension. VP CLIENT SERVICES: Shantel Roy RDCS
[2017-01-11 20:20] LABS: Glucose,Whole Blood 98 mg/dL (75-99)
[2017-01-11] MEDS: TAMSULOSIN 0.4 MG CAP.ER.24H PO SCH (20:36)
[2017-01-11] MEDS: NORTRIPTYLINE 25 MG CAP PO SCH (20:36)
[2017-01-12] MEDS: NITROGLYCERIN OINT 1 INCH/GM PACKET TOPICAL SCH ×2 (04:38→12:46)
[2017-01-12] MEDS: LEVOTHYROXINE 100 MCG TAB PO SCH (06:11)
[2017-01-12 06:52] LABS: Glucose,Whole Blood 93 mg/dL (75-99)
[2017-01-12 07:32] LABS: Basophils % (A) 1 %; CH 30.8; CHCM 32.6; Eosinophils # (A) 0.1 k/uL (0-0.7); Eosinophils % (A) 4 %; HCT 36.5 % (39.0-53.0); HDW 2.54; HGB 11.8 gm/dL (13.0-17.5); Luc # (Auto) 0.12; Luc % (Auto) 4; Lymphocytes # (A) 0.7 k/uL (1.0-4.8); Lymphocytes % (A) 25 %; MCH 30.7 pg (25.0-35.0); MCHC 32.4 g/dL (31.0-37.0); MCV 94.9 fL (80.0-100.0); Monocytes # (A) 0.3 k/uL (0-1.0); Monocytes % (A) 10 %; Neutrophils # (A) 1.6 k/uL (1.3-7.7); Neutrophils % (A) 56 %; RBC 3.85 m/uL (4.30-5.90); RDW 13.8 % (11.5-15.5); WBC 2.8 k/uL (3.8-10.6); WBC (Perox) 2.98
[2017-01-12] MEDS: INSULIN LISPRO (humaLOG) 300 UNIT/3 ML VIAL SQ SCH ×2 (07:44→12:46)
[2017-01-12] MEDS: HYDROcodone/APAP 5-325MG 1 EACH TAB PO PRN (07:45)
[2017-01-12] MEDS: metFORMIN 500 MG TAB PO SCH (08:58)
[2017-01-12] MEDS: ASPIRIN 325 MG TAB PO SCH (08:58)
[2017-01-12] MEDS: ACYCLOVIR 200 MG CAP PO SCH (08:58)
[2017-01-12] MEDS: amLODIPine 5 MG TAB PO SCH (08:59)
[2017-01-12] MEDS: PANTOPRAZOLE 40 MG TABLET PO SCH (08:59)
[2017-01-12] MEDS: DICYCLOMINE 20 MG TAB PO SCH (08:59)
[2017-01-12] MEDS: METOPROLOL SUCCINATE (ER) 100 MG TAB.ER.24H PO SCH (08:59)
[2017-01-12] MEDS: TACROLIMUS 0.5 MG CAP PO SCH (08:59)
[2017-01-12 09:14] LABS: Erythrocyte Sedimentation Rate 13 mm/hr (0-15)
[2017-01-12] MEDS: ACETAMINOPHEN TAB 325 MG TAB PO PRN (11:49)
[2017-01-12 12:08] LABS: Glucose,Whole Blood 74 mg/dL (75-99)
[2017-01-12 12:32] VITALS: BP 136/74; PULSE 69; TEMP 97.7
--- NOTE | 2017-01-13 11:36 | DS ---
DATE OF ADMISSION: 01/10/2017 DATE OF DISCHARGE: 01/12/2017 FINAL DIAGNOSIS(ES): 1. Chest pain, possibly musculoskeletal. 2. Abdominal pain and groin pain, chronic, possibly irritable bowel syndrome. 3. History of coronary artery disease, multiple stents. 4. History of bone cancer with bone marrow transplantation. 5. Mild pancytopenia, possibly secondary to malignancy. 6. History of diabetes type 2. 7. History of coronary artery disease stent. 8. History of deep venous thrombosis. 9. History of gastroesophageal reflux disease. 10. History of gastrointestinal bleed. 11. History of myocardial infarction. 12. History of degenerative joint disease. 13. History of prostate disorder. 14. History of adenoidectomy. 15. History of cholecystectomy. 16. Carpal tunnel syndrome. 17. History of depression. 18. FULL CODE. DISCHARGE DISPOSITION: Patient will be discharged in stable condition with guarded prognosis. HISTORY OF PRESENT ILLNESS: This 71-year-old gentleman with a past medical history of multiple medical problems admitted with chest pain and multiple symptomatology, myocardial infarction ruled out per cardiology. Recommend the patient will be discharged also saw the patient for abdominal pain and groin pain and recommended outpatient follow-up. On exam, vital signs are stable. CARDIOVASCULAR: S1, S2 muffled. ABDOMEN: Soft. Nontender. CENTRAL NERVOUS SYSTEM: No focal deficits. DISCHARGE ADVICE AND MEDICATIONS: 1. Diet is cardiac. 2. Activity limited until follow-up. 3. Follow-up with Dr. Micheal Adamson in 2 to 3 days. 4. Follow-up with Dr. Arlen Garces or Dr. Mandujano as recommended. 5. Follow-up with Dr. Farrah Hammer in 2 weeks. 6. Follow up with hematology/oncology as recommended. 7. Tylenol 650 q.6 p.r.n. 8. Acyclovir 400 mg p.o. b.i.d. 9. Ecotrin 81 mg q.h.s. 10. Dicyclomine 20 mg p.o. daily. 11. Hydrocodone 5 mg q.6 p.r.n. 12. Ativan 0.5 mg q.6 p.r.n. 13. Synthroid 100 mcg p.o. daily. 14. Toprol-XL 100 mg p.o. daily. 15. Nortriptyline 25 mg p.o. q.h.s. 16. Omeprazole 40 mg p.o. daily. 17. Prograf 0.5 mg p.o. daily. 18. Flomax 0.4 q.h.s. 19. Norvasc 5 mg p.o. daily. 20. Metformin 1000 mg p.o. b.i.d. 21. Further follow-up for the abdomen and groin pain in the outpatient setting with Dr. Adamson. ALEKS
== END 2017-01-12 12:52 | disposition home or self-care (01) ==
LOC: EC 10:50 → 3OBS 14:28
PROVIDERS: ADMIT Family Medicine; ATTEND Family Medicine
DX: R07.89 Other chest pain (principal); R10.31 Right lower quadrant pain; I25.10 Atherosclerotic heart disease of native coronary artery without angina pectoris; D61.818 Other pancytopenia; E11.9 Type 2 diabetes mellitus without complications; N40.0 Benign prostatic hyperplasia without lower urinary tract symptoms; I10 Essential (primary) hypertension; K21.9 Gastro-esophageal reflux disease without esophagitis; E83.42 Hypomagnesemia; M19.90 Unspecified osteoarthritis, unspecified site; F32.9 Major depressive disorder, single episode, unspecified; E07.9 Disorder of thyroid, unspecified; G56.00 Carpal tunnel syndrome, unspecified upper limb; I25.2 Old myocardial infarction; Z95.5 Presence of coronary angioplasty implant and graft; Z79.899 Other long term (current) drug therapy; Z79.84 Long term (current) use of oral hypoglycemic drugs; Z79.82 Long term (current) use of aspirin; Z86.718 Personal history of other venous thrombosis and embolism; Z92.21 Personal history of antineoplastic chemotherapy; Z94.81 Bone marrow transplant status; Z85.830 Personal history of malignant neoplasm of bone; Z82.49 Family history of ischemic heart disease and other diseases of the circulatory system; Z83.3 Family history of diabetes mellitus; Z82.3 Family history of stroke
CPT/HCPCS: 36415; 93005; 93306; 85379; 83880; 80061; 80053; 80048 ×2; 85652; 82150; 83036; 82550; 82553; 83690; 83735; 84484; 85025 ×3; 85610; 85730 ×2; 86140; 71020; 99291; 96365; 96375; 96376; G0378 ×3; J1644 ×2; J1885; J3475; 96366; 96367

== ENCOUNTER 2017-03-11 15:08 | Emergency (ER) | payer MEDICARE, OTHER ==
[2017-03-11] MEDS ORDERED: SODIUM CHLORIDE 0.9% 500 ML IV STA (15:37)
[2017-03-11] MEDS ORDERED: RX INFO: IV CONTRAST WAS GIVEN 1 EACH MISC MISCELLANE PRN (15:37)
[2017-03-11 16:16] LABS: Basophils % (A) 1 %; CH 31.3; CHCM 33.5; Eosinophils # (A) 0.1 k/uL (0-0.7); Eosinophils % (A) 2 %; HCT 38.7 % (39.0-53.0); HDW 2.47; HGB 12.8 gm/dL (13.0-17.5); Luc # (Auto) 0.15; Luc % (Auto) 4; Lymphocytes # (A) 0.6 k/uL (1.0-4.8); Lymphocytes % (A) 15 %; MCH 31.1 pg (25.0-35.0); MCHC 33.2 g/dL (31.0-37.0); MCV 93.6 fL (80.0-100.0); Monocytes # (A) 0.4 k/uL (0-1.0); Monocytes % (A) 9 %; Neutrophils # (A) 2.8 k/uL (1.3-7.7); Neutrophils % (A) 70 %; RBC 4.13 m/uL (4.30-5.90); RDW 14.1 % (11.5-15.5); WBC (Perox) 4.34
[2017-03-11 16:28] LABS: Calcium 8.9 mg/dL (8.4-10.2); Potassium 4.2 mmol/L (3.5-5.1); Total Bilirubin 0.6 mg/dL (0.2-1.3)
[2017-03-11] MEDS ORDERED: SODIUM CHLORIDE 0.9% 1,000 ML IV ONE (16:42)
[2017-03-11 17:11] LABS: Appearance,Urine Clear (Clear); Bilirubin,Urine Negative (Negative); Glucose,Urine (UA) Negative (Negative); Ketones,Urine Negative (Negative); Leukocyte Esterase,Urine Trace (Negative); Mucus,Urine Rare /hpf; Nitrite,Urine Negative (Negative); PH, Urine 5.5 (5.0-8.0); Particle Count 1796; Protein,Urine Trace (Negative); RBC,Urine 2 /hpf (0-5); Specific Gravity,Urine 1.024 (1.001-1.035); UA Billing (MACRO vs. MICRO) MICRO; Urobilinogen,Urine <2.0 mg/dL (<2.0); WBC,Urine 9 /hpf (0-5)
--- NOTE | 2017-03-11 17:19 | CT ---
EXAMINATION TYPE: CT abdomen pelvis w con DATE OF EXAM: 03/11/2017 5:11 PM COMPARISON: 12/26/2016 HISTORY: Patient complains of RLQ pain and cough. Patient has prior history of bone CA. CT DLP: 1746 mGycm Automated exposure control for dose reduction was used. TECHNIQUE: Helical acquisition of images was performed from the lung bases through the pelvis. CONTRAST: Performed without Oral Contrast and with IV Contrast, patient injected with 80 mL of Visipaque 320. FINDINGS: The lung bases are clear of consolidation. There is no pleural effusion. There is a small hiatal myrna ia. Liver shows no focal defect. There are clips from cholecystectomy. Spleen and pancreas appear normal. There is no adrenal mass. There are bilateral renal cortical cysts that measure up to 3 cm. There is no hydronephrosis There is no retroperitoneal adenopathy. I see no intestinal wall thickening. There are no dilated loo ps. There is no sign of bowel obstruction. There is no ascites. Bladder distends smoothly. There are prosthetic calcifications. There is no evidence of a mass. There is mild atherosclerotic vascular dis ease. There are spondylotic changes in the lumbar spine. Appendix is not seen. There is no sign of ap pendicitis.. IMPRESSION: SMALL RENAL CORTICAL CYSTS. NO EVIDENCE OF ACUTE ABDOMEN AND PELVIS. NO ADVERSE CHANGE COMPARED TO OL D EXAM. SMALL HIATAL HERNIA.
--- NOTE | 2017-03-11 17:36 | ED ---
Abdominal Pain HPI - General Chief Complaint: Abdominal Pain Stated Complaint: side pain Sent by PCP Time Seen by Provider: 03/11/17 15:27 Source: patient, RN notes reviewed Mode of arrival: ambulatory Limitations: no limitations - History of Present Illness Initial Comments: This a 71-year-old male presents emergency Department from primary care physician's office for right lower quadrant abdominal pain. Patient states she' s had this pain on and off for several years which she seen multiple specialists for that with no true answers. Patient states that he's had injections in the region which have helped for short period of time. Patient states that this pain is very consistent with his normal pain though it happened while he was at the office and they sent him here for evaluation. Patient states he went to his primary care physician because he has cold like symptoms including or nose, cough, and , sinus congestion. Patient denies any chest pain or shortness breath. Patient has fever or chills. Denies any dysuria hematuria. - Related Data Home Medications Medication Instructions Recorded Confirmed Dicyclomine HCl 20 mg PO DAILY 05/24/14 03/11/17 Levothyroxine Sodium [Synthroid] 100 mcg PO DAILY 05/24/14 03/11/17 Omeprazole 40 mg PO DAILY 05/24/14 03/11/17 metFORMIN HCL 1,000 mg PO BID 05/24/14 03/11/17 Nortriptyline [Pamelor] 25 mg PO HS 02/23/15 03/11/17 Acyclovir 400 mg PO BID 10/11/16 03/11/17 LORazepam [Ativan] 0.5 mg PO Q6H PRN 10/11/16 03/11/17 Metoprolol Succinate (ER) [Toprol 100 mg PO DAILY 10/11/16 03/11/17 XL] Tamsulosin [Flomax] 0.4 mg PO HS 10/11/16 03/11/17 amLODIPine [Norvasc] 5 mg PO DAILY 10/11/16 03/11/17 Tacrolimus [Prograf] 0.5 mg PO DAILY 12/16/16 03/11/17 Aspirin EC [Ecotrin Low Dose] 81 mg PO HS 12/26/16 03/11/17 Acetaminophen Tab [Tylenol] 650 mg PO Q6HR PRN 03/11/17 03/11/17 HYDROcodone/APAP 5-325MG [[place] 1 tab PO Q6HR PRN 03/11/17 03/11/17 5-325] Previous Rx's Medication Instructions Recorded Amoxicillin/Potassium Clav 1 tab PO Q12HR #20 tab 03/11/17 [Augmentin 875-125 Tablet] Promethaz-Cod 6.25-10 mg/5 ml 5 ml PO Q6HR PRN #120 ml 03/11/17 [Phenergan with Codeine] Allergies Allergy/AdvReac Type Severity Reaction Status Date / Time No Known Allergies Allergy Verified 03/11/17 15:38 Review of Systems ROS Statement: Those systems with pertinent positive or pertinent negative responses have been documented in the HPI. ROS Other: All systems not noted in ROS Statement are negative. 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 Last Myocardial Infarction Date:: 2014 History of Any Multi-Drug Resistant Organisms: None Reported Past Surgical History: Adenoidectomy, Heart Catheterization With Stent, Hernia Repair, Orthopedic Surgery, Tonsillectomy Additional Past Surgical History / Comment(s): Bilateral carpal tunnel, bone spur removals to bilateral heels and FEET, X6 cardiac STENTS, RT KNEE BONE SPURS , CATARACTS JA with lens implants, JA INGUINAL HERNIA REPAIR AND UMBILLICAL. removal of malignant tumor from back Past Anesthesia/Blood Transfusion Reactions: No Reported Reaction Additional Past Anesthesia/Blood Transfusion Reaction / Comment(s): Pt states he has received blood in the past without reaction. Date of Last Stent Placement:: 2014 Past Psychological History: Depression Additional Psychological History / Comment(s): Pt states he has a brother who is in a wheelchair that lives with him. Pt is independent. He drives.has a person come in to [employer]. no service,worked 37 years at [employer]. Smoking Status: Never smoker Past Alcohol Use History: None Reported Past Drug Use History: None Reported - Past Family History Father Family Medical History: Myocardial Infarction ([place]) Additional Family Medical History / Comment(s): PTBA Mother Family Medical History: CVA/TIA, Diabetes Mellitus Additional Family Medical History / Comment(s): Mother of a CVA at the age of 82 yrs. Brother(s) Family Medical History: Cancer General Exam Limitations: no limitations General appearance: alert, in no apparent distress Head exam: Present: atraumatic, normocephalic, normal inspection Eye exam: Present: normal appearance, PERRL, EOMI. Absent: scleral icterus, conjunctival injection, periorbital swelling ENT exam: Present: mucous membranes moist, TM's normal bilaterally, normal external ear exam. Absent: normal oropharynx (pnd) Neck exam: Present: normal inspection, full ROM. Absent: tenderness, meningismus, lymphadenopathy Respiratory exam: Present: normal lung sounds bilaterally. Absent: respiratory distress, wheezes, rales, rhonchi, stridor Cardiovascular Exam: Present: regular rate, normal rhythm, normal heart sounds. Absent: systolic murmur, diastolic murmur, rubs, gallop, clicks GI/Abdominal exam: Present: soft, tenderness (mild right lower), normal bowel sounds. Absent: distended, guarding, rebound, rigid Back exam: Absent: CVA tenderness (R), CVA tenderness (L) Neurological exam: Present: alert, oriented X3, CN II-XII intact Psychiatric exam: Present: normal affect, normal mood Course Vital Signs 03/11/17 03/11/17 15:14 16:01 Temperature 97.6 F Pulse Rate 99 88 Respiratory 18 16 Rate Blood Pressure 146/80 150/81 O2 Sat by Pulse 100 96 Oximetry Medical Decision Making - Medical Decision Making 71-year-old male presented for multiple reasons. Patient has acute sinusitis/ upper respiratory infection. Patient starting antibiotics For this. Patient had right-sided abdominal pain which is chronic in nature there is no acute findings for this pain at this time. Return parameters were discussed. - Lab Data Result diagrams: 03/11/17 15:56 03/11/17 15:56 Lab Results 03/11/17 03/11/17 03/11/17 Range/Units 15:56 15:56 16:50 WBC 4.0 (3.8-10.6) k/uL RBC 4.13 L (4.30-5.90) m/uL Hgb 12.8 L (13.0-17.5) gm/dL Hct 38.7 L (39.0-53.0) % MCV 93.6 (80.0-100.0) fL MCH 31.1 (25.0-35.0) pg MCHC 33.2 (31.0-37.0) g/dL RDW 14.1 (11.5-15.5) % Plt Count 105 L (150-450) k/uL Neutrophils % 70 % Lymphocytes % 15 % Monocytes % 9 % Eosinophils % 2 % Basophils % 1 % Neutrophils # 2.8 (1.3-7.7) k/uL Lymphocytes # 0.6 L (1.0-4.8) k/uL Monocytes # 0.4 (0-1.0) k/uL Eosinophils # 0.1 (0-0.7) k/uL Basophils # 0.0 (0-0.2) k/uL Sodium 140 (137-145) mmol/L Potassium 4.2 (3.5-5.1) mmol/L Chloride 106 (98-107) mmol/L Carbon Dioxide 23 (22-30) mmol/L Anion Gap 11 mmol/L BUN 21 H (9-20) mg/dL Creatinine 1.42 H (0.66-1.25) mg/dL Est GFR (MDRD) Af Amer 60 (>60 ml/min/1.73 sqM) Est GFR (MDRD) Non-Af 49 (>60 ml/min/1.73 sqM) Glucose 124 H (74-99) mg/dL Calcium 8.9 (8.4-10.2) mg/dL Total Bilirubin 0.6 (0.2-1.3) mg/dL AST 36 (17-59) U/L ALT 43 (21-72) U/L Alkaline Phosphatase 89 (38-126) U/L Total Protein 7.0 (6.3-8.2) g/dL Albumin 4.1 (3.5-5.0) g/dL Amylase 41 (30-110) U/L Lipase 44 (23-300) U/L Urine Color Yellow Urine Appearance Clear (Clear) Urine pH 5.5 (5.0-8.0) Ur Specific [place] 1.024 (1.001-1.035) Urine Protein Trace H (Negative) Urine Glucose (UA) Negative (Negative) Urine Ketones Negative (Negative) Urine Blood Trace H (Negative) Urine Nitrite Negative (Negative) Urine Bilirubin Negative (Negative) Urine Urobilinogen <2.0 (<2.0) mg/dL Ur Leukocyte Esterase Trace H (Negative) Urine RBC 2 (0-5) /hpf Urine WBC 9 H (0-5) /hpf Urine Mucus Rare H (None) /hpf Disposition Clinical Impression: Acute sinusitis, Cough, Abdominal pain Disposition: HOME SELF-CARE Condition: Stable Instructions: Abdominal Pain (ED) Additional Instructions: Please return to the Emergency Department if symptoms worsen or any other concerns. Prescriptions: Amoxicillin/Potassium Clav [Augmentin 875-125 Tablet] 1 tab PO Q12HR #20 tab Promethaz-Cod 6.25-10 mg/5 ml [Phenergan with Codeine] 5 ml PO Q6HR PRN #120 ml PRN Reason: Cough Time of Disposition: 17:35
[2017-03-11 17:47] VITALS: BP 154/75; PULSE 86; RESP 18; TEMP 97
== END 2017-03-11 17:47 | disposition home or self-care (01) ==
LOC: EC 15:08
DX: R10.31 Right lower quadrant pain (principal); J01.90 Acute sinusitis, unspecified; I25.10 Atherosclerotic heart disease of native coronary artery without angina pectoris; E11.9 Type 2 diabetes mellitus without complications; K21.9 Gastro-esophageal reflux disease without esophagitis; I10 Essential (primary) hypertension; I25.2 Old myocardial infarction; M19.90 Unspecified osteoarthritis, unspecified site; E07.9 Disorder of thyroid, unspecified; N40.0 Benign prostatic hyperplasia without lower urinary tract symptoms; F32.9 Major depressive disorder, single episode, unspecified; Z79.82 Long term (current) use of aspirin; Z79.899 Other long term (current) drug therapy; Z79.84 Long term (current) use of oral hypoglycemic drugs; Z85.830 Personal history of malignant neoplasm of bone; Z87.442 Personal history of urinary calculi; Z95.5 Presence of coronary angioplasty implant and graft
CPT/HCPCS: 36415; 80053; 82150; 83690; 85025; 81001; 74177; 99284; 96360; 96361; Q9967

== ENCOUNTER → 2017-04-10 | Outpatient (CLI) | payer MEDICARE, OTHER ==
--- NOTE | 2017-04-10 15:46 | US ---
EXAMINATION TYPE: US scrotum with doppler. Grayscale and color Doppler Duplex imaging performed of t he scrotum. DATE OF EXAM: 04/10/2017 COMPARISON: Prior scrotal ultrasound March 05, 2015. CLINICAL HISTORY: N50.811 Rt Testicular Pain. EXAM MEASUREMENTS: TESTICLES: Right Testicle: 3.1 x 1.6 x 2.1 cm Left Testicle: 3.2 x 1.6 x 2.7 cm EPIDIDYMIS HEAD: Right Epididymis: 1.7 cm Left Epididymis: 2.3 cm Doppler performed to assess for testicular vascularity; good bilateral color flow and waveforms are s een. Presence of hydroceles: small alissa ,rt1.7 x 0.4 x 1.1 cm left 0.9 x 0.7 x 0.8 cm Presence of varicoceles: no Comparison view show no suspicious skin thickening bilaterally. Color comparison imaging is either no t performed or not saved making evaluation suboptimal. Scanning of unilateral testicles shows satisfa ctory blood flow bilaterally. IMPRESSION: Suboptimal study is no suspicious asymmetric increased or decreased blood flow to right t esticle is evident. Small symmetric bilateral scrotal fluid collections or hydroceles are noted.
== END | disposition home or self-care (01) ==
LOC: RADUSWWP 14:36
PROVIDERS: ATTEND Family Medicine
DX: N50.811 Right testicular pain (principal)
CPT/HCPCS: 76870; 93975

== ENCOUNTER → 2017-05-09 | Outpatient (CLI) | payer MEDICARE, OTHER ==
[2017-05-09 11:20] LABS: Basophils % (A) 0 %; CH 30.2; CHCM 33.2; Eosinophils # (A) 0.2 k/uL (0-0.7); Eosinophils % (A) 2 %; HCT 34.7 % (39.0-53.0); HDW 2.96; HGB 11.9 gm/dL (13.0-17.5); Luc # (Auto) 0.16; Luc % (Auto) 2; Lymphocytes # (A) 0.7 k/uL (1.0-4.8); Lymphocytes % (A) 9 %; MCH 31.4 pg (25.0-35.0); MCHC 34.4 g/dL (31.0-37.0); MCV 91.2 fL (80.0-100.0); Mean Platelet Volume 7.2; Monocytes # (A) 0.4 k/uL (0-1.0); Monocytes % (A) 4 %; Neutrophils # (A) 7.2 k/uL (1.3-7.7); Neutrophils % (A) 83 %; RDW 13.1 % (11.5-15.5); WBC 8.7 k/uL (3.8-10.6); WBC (Perox) 9.35
[2017-05-09 11:25] LABS: ALT 39 U/L (21-72); AST 20 U/L (17-59); Alkaline Phosphatase 178 U/L (38-126); Anion Gap 16 mmol/L; Blood Urea Nitrogen 17 mg/dL (9-20); Calcium 9.1 mg/dL (8.4-10.2); Carbon Dioxide 24 mmol/L (22-30); Chloride 103 mmol/L (98-107); Cholesterol 198 mg/dL (<200); Glucose 135 mg/dL (74-99); HDL Cholesterol 48 mg/dL (40-60); Non-African American GFR(MDRD) 52 (>60 ml/min/1.73 sqM); Sodium 143 mmol/L (137-145); Total Bilirubin 0.9 mg/dL (0.2-1.3); Total Protein 7.1 g/dL (6.3-8.2); Triglycerides 115 mg/dL (<150)
--- NOTE | 2017-05-09 13:05 | CT ---
EXAMINATION TYPE: CT abdomen pelvis w con DATE OF EXAM: 05/09/2017 REFERENCE: Previous study dated 03/11/2017. HISTORY: R10.9 abd pain HISTORY: Pelvic pain. History of bone cancer CT DLP: 1454 mGy Automated exposure control for dose reduction was used. TECHNIQUE: Helical acquisition through the abdomen and pelvis was obtained following the oral ingesti on of with Oral Contrast and following intravenous administration of 80 mL of Visipaque 320. The data was reformatted in axial, coronal and sagittal projections. FINDINGS: Visualized portions of the lungs are clear. There is no pleural or pericardial fluid. Ther e is coronary artery and other vascular calcifications. The heart is not enlarged. There is a small hiatal hernia present. Within the abdomen, the liver is mildly prominent measuring 18.5 cm. The gallbladder is been removed. The spleen is normal. Both adrenal glands appear normal. There are stable cortical cyst present bilaterally. There is parapelvic cysts on the left. The pancreas is unremarkable. There is no significant retroperitoneal, iliac or inguinal adenopathy. There is some prostatic calcification. There is mild thickening of the bladder wall. I could not excl ude some degree of bladder outlet obstruction. The majority of the left side of the colon is collapsed. This makes it difficult to assess colonic wa ll thickness. The appendix is not visualized. Small bowel loops appear normal. No free fluid and no free air is seen. There is facet arthropathy in the lower lumbar spine and is hypertrophic spondylosis within the dorsa l spine. No bony destructive lesion is seen. IMPRESSION: 1. CLASS LOSS OF THE COLON MAKES IT DIFFICULT TO ASSESS COLONIC WALL THICKNESS. PLEASE CORRELATE CLIN ICALLY TO EXCLUDE COLITIS. 2. SMALL HIATAL HERNIA. 3. MILD HEPATOMEGALY. 4. STABLE RENAL CORTICAL CYSTS. 5. THICKENING OF THE BLADDER WALL MAY BE SECONDARY TO CHRONIC OUTLET OBSTRUCTION OR DUE TO LACK OF DI STENTION. 6. DEGENERATIVE CHANGES WITHIN THE SPINE.
[2017-05-09 13:14] LABS: Hemoglobin A1C 6.1 % (4.2-6.1)
== END | disposition home or self-care (01) ==
LOC: RADCTMAIN 10:38
PROVIDERS: ATTEND Family Medicine
DX: N28.1 Cyst of kidney, acquired (principal); K44.9 Diaphragmatic hernia without obstruction or gangrene; R16.0 Hepatomegaly, not elsewhere classified; E11.9 Type 2 diabetes mellitus without complications
CPT/HCPCS: 80061; 80053; 83036; 85025; 74177; 36415; Q9967

== ENCOUNTER 2017-05-28 09:31 | Emergency (ER) | payer MEDICARE, OTHER ==
[2017-05-28] MEDS ORDERED: MORPHINE SULFATE 4 MG/ML SYRINGE IV STA (09:48)
[2017-05-28] MEDS ORDERED: ONDANSETRON 4 MG/2 ML VIAL IVP STA (09:48)
[2017-05-28] MEDS ORDERED: SODIUM CHLORIDE 0.9% 1,000 ML IV STA (09:48)
[2017-05-28] MEDS ORDERED: METOPROLOL SUCCINATE (ER) 100 MG TAB.ER.24H PO STA (09:49)
[2017-05-28] MEDS ORDERED: RX INFO: IV CONTRAST WAS GIVEN 1 EACH MISC MISCELLANE PRN (09:51)
--- NOTE | 2017-05-28 09:55 | ED ---
Abdominal Pain HPI - General Chief Complaint: Abdominal Pain Stated Complaint: lower abdominal pain Time Seen by Provider: 05/28/17 09:39 Source: patient, RN notes reviewed Mode of arrival: ambulatory Limitations: no limitations - History of Present Illness Initial Comments: This a 71-year-old male presents emergency Department with chief complaint of right lower quadrant down pain. Patient is increasing pain since this morning. States his lower abdomen right groin region. Patient states that he scheduled for surgery because he believes that his liver is enlarged, they're going to take my appendix and possible hernia repair. Patient states that the pain is nonradiating. Patient denies any diarrhea or constipation he did states he has some nausea and vomiting. Patient denies any chest pain, shortness breath, fever, chills, dysuria or hematuria. Patient states that his surgeon is Dr. Zhang. - Related Data Home Medications Medication Instructions Recorded Confirmed Dicyclomine HCl 20 mg PO DAILY 05/24/14 05/28/17 Levothyroxine Sodium [Synthroid] 100 mcg PO DAILY 05/24/14 05/28/17 Omeprazole 40 mg PO DAILY 05/24/14 05/28/17 metFORMIN HCL 1,000 mg PO DAILY 05/24/14 05/28/17 Nortriptyline [Pamelor] 25 mg PO DAILY 02/23/15 05/28/17 Acyclovir 400 mg PO DAILY 10/11/16 05/28/17 LORazepam [Ativan] 0.5 mg PO Q6H PRN 10/11/16 05/28/17 Metoprolol Succinate (ER) [Toprol 100 mg PO DAILY 10/11/16 05/28/17 XL] Tamsulosin [Flomax] 0.4 mg PO HS 10/11/16 05/28/17 amLODIPine [Norvasc] 5 mg PO DAILY 10/11/16 05/28/17 Aspirin EC [Ecotrin Low Dose] 81 mg PO HS 12/26/16 05/28/17 Magnesium 133mg 133 mg PO DAILY 05/28/17 05/28/17 Tacrolimus [Prograf] 1 mg PO DAILY 05/28/17 05/28/17 Previous Rx's Medication Instructions Recorded Hydrocodone/Acetaminophen [[place] 1 tab PO Q6HR PRN #15 tab 05/28/17 5-325] Ondansetron Odt [Zofran Odt] 4 mg PO Q8HR PRN #10 tab 05/28/17 Allergies Allergy/AdvReac Type Severity Reaction Status Date / Time No Known Allergies Allergy Verified 05/28/17 09:58 Review of Systems ROS Statement: Those systems with pertinent positive or pertinent negative responses have been documented in the HPI. ROS Other: All systems not noted in ROS Statement are negative. 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 Last Myocardial Infarction Date:: 2014 History of Any Multi-Drug Resistant Organisms: None Reported Past Surgical History: Adenoidectomy, Heart Catheterization With Stent, Hernia Repair, Orthopedic Surgery, Tonsillectomy Additional Past Surgical History / Comment(s): Bilateral carpal tunnel, bone spur removals to bilateral heels and FEET, X6 cardiac STENTS, RT KNEE BONE SPURS , CATARACTS JA with lens implants, JA INGUINAL HERNIA REPAIR AND UMBILLICAL. removal of malignant tumor from back Past Anesthesia/Blood Transfusion Reactions: No Reported Reaction Additional Past Anesthesia/Blood Transfusion Reaction / Comment(s): Pt states he has received blood in the past without reaction. Date of Last Stent Placement:: 2014 Past Psychological History: Depression Smoking Status: Never smoker Past Alcohol Use History: None Reported Past Drug Use History: None Reported - Past Family History Father Family Medical History: Myocardial Infarction ([place]) Additional Family Medical History / Comment(s): PTBA Mother Family Medical History: CVA/TIA, Diabetes Mellitus Additional Family Medical History / Comment(s): Mother of a CVA at the age of 82 yrs. Brother(s) Family Medical History: Cancer General Exam Limitations: no limitations General appearance: alert, in no apparent distress Head exam: Present: atraumatic, normocephalic, normal inspection Eye exam: Present: normal appearance, PERRL, EOMI. Absent: scleral icterus, conjunctival injection, periorbital swelling Respiratory exam: Present: normal lung sounds bilaterally. Absent: respiratory distress, wheezes, rales, rhonchi, stridor Cardiovascular Exam: Present: normal rhythm, tachycardia, normal heart sounds. Absent: systolic murmur, diastolic murmur, rubs, gallop, clicks GI/Abdominal exam: Present: soft, tenderness (Moderate right lower quadrant, right inguinal region tenderness), normal bowel sounds. Absent: distended, guarding, rebound, rigid Back exam: Absent: CVA tenderness (R), CVA tenderness (L) Neurological exam: Present: alert, oriented X3, CN II-XII intact Skin exam: Present: warm, dry, intact, normal color. Absent: rash Course Vital Signs 05/28/17 05/28/17 05/28/17 09:35 09:49 10:51 Temperature 98.2 F 98.3 F Pulse Rate 120 H 64 90 Respiratory 20 16 18 Rate Blood Pressure 174/105 190/112 171/87 O2 Sat by Pulse 100 100 98 Oximetry Medical Decision Making - Medical Decision Making 71-year-old male presented for right lower quadrant right groin pain. Patient' s had some ongoing pain for last few weeks. Patient states it does get worse. Patient is scheduled for surgery is not exactly sure what his surgery entails. Patient will be given pain medication and advised to follow-up with Dr. Zhang his surgeon next 2440 hrs. return if symptoms worsen. - Lab Data Result diagrams: 05/28/17 10:00 05/28/17 10:00 Lab Results 05/28/17 05/28/17 05/28/17 Range/Units 10:00 10:00 10:00 WBC 4.9 (3.8-10.6) k/uL RBC 4.11 L (4.30-5.90) m/uL Hgb 12.5 L (13.0-17.5) gm/dL Hct 37.1 L (39.0-53.0) % MCV 90.2 (80.0-100.0) fL MCH 30.5 (25.0-35.0) pg MCHC 33.8 (31.0-37.0) g/dL RDW 14.2 (11.5-15.5) % Plt Count 205 (150-450) k/uL Neutrophils % 75 % Lymphocytes % 14 % Monocytes % 7 % Eosinophils % 1 % Basophils % 0 % Neutrophils # 3.7 (1.3-7.7) k/uL Lymphocytes # 0.7 L (1.0-4.8) k/uL Monocytes # 0.4 (0-1.0) k/uL Eosinophils # 0.1 (0-0.7) k/uL Basophils # 0.0 (0-0.2) k/uL APTT (22.0-30.0) sec Sodium 143 (137-145) mmol/L Potassium 4.4 (3.5-5.1) mmol/L Chloride 108 H (98-107) mmol/L Carbon Dioxide 23 (22-30) mmol/L Anion Gap 12 mmol/L BUN 18 (9-20) mg/dL Creatinine 1.30 H (0.66-1.25) mg/dL Est GFR (MDRD) Af Amer >60 (>60 ml/min/1.73 sqM) Est GFR (MDRD) Non-Af 55 (>60 ml/min/1.73 sqM) Glucose 130 H (74-99) mg/dL Plasma Lactic Acid [place] 1.3 (0.7-2.0) mmol/L Calcium 9.6 (8.4-10.2) mg/dL Total Bilirubin 0.5 (0.2-1.3) mg/dL AST 23 (17-59) U/L ALT 33 (21-72) U/L Alkaline Phosphatase 110 (38-126) U/L Total Protein 7.6 (6.3-8.2) g/dL Albumin 4.4 (3.5-5.0) g/dL Amylase 40 (30-110) U/L Lipase 99 (23-300) U/L Urine Color Urine Appearance (Clear) Urine pH (5.0-8.0) Ur Specific [place] (1.001-1.035) Urine Protein (Negative) Urine Glucose (UA) (Negative) Urine Ketones (Negative) Urine Blood (Negative) Urine Nitrite (Negative) Urine Bilirubin (Negative) Urine Urobilinogen (<2.0) mg/dL Ur Leukocyte Esterase (Negative) 07/26/17 07/26/17 Range/Units 10:00 10:32 WBC (3.8-10.6) k/uL RBC (4.30-5.90) m/uL Hgb (13.0-17.5) gm/dL Hct (39.0-53.0) % MCV (80.0-100.0) fL MCH (25.0-35.0) pg MCHC (31.0-37.0) g/dL RDW (11.5-15.5) % Plt Count (150-450) k/uL Neutrophils % % Lymphocytes % % Monocytes % % Eosinophils % % Basophils % % Neutrophils # (1.3-7.7) k/uL Lymphocytes # (1.0-4.8) k/uL Monocytes # (0-1.0) k/uL Eosinophils # (0-0.7) k/uL Basophils # (0-0.2) k/uL APTT 26.1 (22.0-30.0) sec Sodium (137-145) mmol/L Potassium (3.5-5.1) mmol/L Chloride (98-107) mmol/L Carbon Dioxide (22-30) mmol/L Anion Gap mmol/L BUN (9-20) mg/dL Creatinine (0.66-1.25) mg/dL Est GFR (MDRD) Af Amer (>60 ml/min/1.73 sqM) Est GFR (MDRD) Non-Af (>60 ml/min/1.73 sqM) Glucose (74-99) mg/dL Plasma Lactic Acid [place] (0.7-2.0) mmol/L Calcium (8.4-10.2) mg/dL Total Bilirubin (0.2-1.3) mg/dL AST (17-59) U/L ALT (21-72) U/L Alkaline Phosphatase (38-126) U/L Total Protein (6.3-8.2) g/dL Albumin (3.5-5.0) g/dL Amylase (30-110) U/L Lipase (23-300) U/L Urine Color Yellow Urine Appearance Clear (Clear) Urine pH 5.5 (5.0-8.0) Ur Specific [place] 1.021 (1.001-1.035) Urine Protein Trace H (Negative) Urine Glucose (UA) Negative (Negative) Urine Ketones Negative (Negative) Urine Blood Negative (Negative) Urine Nitrite Negative (Negative) Urine Bilirubin Negative (Negative) Urine Urobilinogen <2.0 (<2.0) mg/dL Ur Leukocyte Esterase Negative (Negative) Disposition Clinical Impression: Abdominal pain, Right groin pain Disposition: HOME SELF-CARE Condition: Stable Instructions: Abdominal Pain (ED) Additional Instructions: Please return to the Emergency Department if symptoms worsen or any other concerns. Prescriptions: Hydrocodone/Acetaminophen [[place] 5-325] 1 tab PO Q6HR PRN #15 tab PRN Reason: Pain Ondansetron Odt [Zofran Odt] 4 mg PO Q8HR PRN #10 tab PRN Reason: Nausea Referrals: Micheal Adamson MD [Primary Care Provider] - 1-2 days Juliette Mandujano MD [STAFF PHYSICIAN] - 1-2 days Time of Disposition: 11:53
[2017-05-28 10:21] LABS: Basophils % (A) 0 %; CH 30.5; CHCM 33.9; Eosinophils # (A) 0.1 k/uL (0-0.7); Eosinophils % (A) 1 %; HCT 37.1 % (39.0-53.0); HDW 2.96; HGB 12.5 gm/dL (13.0-17.5); Luc # (Auto) 0.13; Luc % (Auto) 3; Lymphocytes # (A) 0.7 k/uL (1.0-4.8); Lymphocytes % (A) 14 %; MCH 30.5 pg (25.0-35.0); MCHC 33.8 g/dL (31.0-37.0); MCV 90.2 fL (80.0-100.0); Mean Platelet Volume 7.7; Monocytes # (A) 0.4 k/uL (0-1.0); Monocytes % (A) 7 %; Neutrophils # (A) 3.7 k/uL (1.3-7.7); Neutrophils % (A) 75 %; RBC 4.11 m/uL (4.30-5.90); RDW 14.2 % (11.5-15.5); WBC 4.9 k/uL (3.8-10.6); WBC (Perox) 4.81
[2017-05-28 10:32] LABS: ALT 33 U/L (21-72); AST 23 U/L (17-59); Alkaline Phosphatase 110 U/L (38-126); Amylase 40 U/L (30-110); Anion Gap 12 mmol/L; Blood Urea Nitrogen 18 mg/dL (9-20); Calcium 9.6 mg/dL (8.4-10.2); Carbon Dioxide 23 mmol/L (22-30); Chloride 108 mmol/L (98-107); Glucose 130 mg/dL (74-99); Non-African American GFR(MDRD) 55 (>60 ml/min/1.73 sqM); Potassium 4.4 mmol/L (3.5-5.1); Sodium 143 mmol/L (137-145); Total Bilirubin 0.5 mg/dL (0.2-1.3); Total Protein 7.6 g/dL (6.3-8.2)
[2017-05-28 10:44] LABS: Appearance,Urine Clear (Clear); Bilirubin,Urine Negative (Negative); Glucose,Urine (UA) Negative (Negative); Ketones,Urine Negative (Negative); Leukocyte Esterase,Urine Negative (Negative); Nitrite,Urine Negative (Negative); PH, Urine 5.5 (5.0-8.0); Protein,Urine Trace (Negative); Specific Gravity,Urine 1.021 (1.001-1.035); UA Billing (MACRO vs. MICRO) CHEM; Urobilinogen,Urine <2.0 mg/dL (<2.0)
[2017-05-28 10:51] VITALS: RESP 18
--- NOTE | 2017-05-28 11:01 | XR ---
EXAMINATION TYPE: XR KUB , 2 VIEWS DATE OF EXAM ORDERED: 05/28/2017 HISTORY: abdominal pain. COMPARISON: Previous study dated 09/19/2014. FINDINGS: There has been a previous cholecystectomy. There is a well-defined 1.3 cm oval calcification just above the iliac crest on the left. This would be an unusual location for the kidney. This may relate to the bowel. The abdominal gas pattern is within normal limits. There is no evidence of obstruction or free air. T here are mild degenerative changes in the lower lumbar spine. The femoral heads are nonspherical. IMPRESSION: 1. WELL-DEFINED OVAL CALCIFICATION JUST ABOVE THE ILIAC CREST ON THE LEFT. THE ETIOLOGY OF THIS IS UN CERTAIN. 2. NO ACUTE INTRA-ABDOMINAL ABNORMALITY.
--- NOTE | 2017-05-28 11:23 | CT ---
EXAMINATION TYPE: CT abdomen pelvis w con DATE OF EXAM: 05/28/2017 COMPARISON: 05/09/2017 HISTORY: Right lower quadrant CT DLP: 959.5 mGycm CONTRAST: CT scan of the abdomen and pelvis is performed without Oral Contrast and with IV Contrast, patient in jected with 80 mL of Visipaque 320. FINDINGS: LUNG BASES-: No visible nodule. No infiltrate. There is a small hiatal hernia. LIVER/GB: Cholecystectomy clips are in place. No space occupying hepatic lesion. Biliary tree is o f normal caliber. PANCREAS: No inflammation. No distinct mass. SPLEEN: No splenic enlargement. No lesion seen. ADRENALS: No nodule. No thickening. KIDNEYS/BLADDER: No hydronephrosis. No nephrolithiasis. Renal cystic lesions are stable. Urinary b ladder grossly unremarkable. BOWEL: Normal appendix. Normal bowel caliber. No inflammation. GENITAL ORGANS: No gross abnormality. LYMPH NODES: No greater than 1cm abdominal or pelvic lymph nodes are appreciated. AORTA: No significant abnormality. OSSEOUS STRUCTURES: No significant abnormality is seen. OTHER: No significant additional abnormality is seen. IMPRESSION: 1. Normal appendix. 2. Stable renal cystic lesions. A small hiatal hernia.
[2017-05-28 12:03] VITALS: BP 142/78; PULSE 72; TEMP 97.2
== END 2017-05-28 12:07 | disposition home or self-care (01) ==
LOC: EC 09:31
DX: R10.31 Right lower quadrant pain (principal); R11.2 Nausea with vomiting, unspecified; K21.9 Gastro-esophageal reflux disease without esophagitis; I25.2 Old myocardial infarction; I10 Essential (primary) hypertension; E11.9 Type 2 diabetes mellitus without complications; F32.9 Major depressive disorder, single episode, unspecified; Z79.82 Long term (current) use of aspirin; Z79.84 Long term (current) use of oral hypoglycemic drugs; Z79.899 Other long term (current) drug therapy
CPT/HCPCS: 36415; 80053; 82150; 83605; 83690; 85025; 85730; 81003; 74000; 74177; 99284; 96374; 96375; 96361 ×2; J2270; Q9967; J2405

== ENCOUNTER 2017-05-29 21:22 | Emergency (ER) | payer MEDICARE, OTHER ==
[2017-05-29] MEDS ORDERED: SODIUM CHLORIDE 0.9% 1,000 ML IV STA (21:55)
--- NOTE | 2017-05-29 22:07 | ED ---
Abdominal Pain HPI <Roberth Bishop - Last Filed: 05/29/17 23:56> - General Source: patient, EMS, RN notes reviewed Mode of arrival: EMS Limitations: no limitations <Diana Nugent - Last Filed: 05/30/17 00:02> - General Chief Complaint: Abdominal Pain Stated Complaint: ABD pain Time Seen by Provider: 05/29/17 21:39 - History of Present Illness Initial Comments: patient is a 71-year-old male presents emergency room for evaluation of abdominal pain and right groin pain. Patient states he's here yesterday for same issue. Patient states earlier today he began feeling slightly short of breath along with the pain. Patient denies chest pain. Patient denies headache or dizziness. Patient states that he has been pain medication in the ambulance that has completely subsided his pain. Patient denies any pain or burning during urination, trouble urinating or blood in urine. Patient denies constipation or diarrhea. Patient states this pain is chronic for him. (Diana Nugent) - Related Data Home Medications Medication Instructions Recorded Confirmed Dicyclomine HCl 20 mg PO HS 05/24/14 05/29/17 Levothyroxine Sodium [Synthroid] 100 mcg PO DAILY 05/24/14 05/29/17 Omeprazole 40 mg PO DAILY 05/24/14 05/29/17 metFORMIN HCL 1,000 mg PO BID 05/24/14 05/29/17 Nortriptyline [Pamelor] 25 mg PO HS 02/23/15 05/29/17 Acyclovir 400 mg PO BID 10/11/16 05/29/17 LORazepam [Ativan] 0.5 mg PO Q6H PRN 10/11/16 05/29/17 Metoprolol Succinate (ER) [Toprol 100 mg PO DAILY 10/11/16 05/29/17 XL] Tamsulosin [Flomax] 0.4 mg PO HS 10/11/16 05/29/17 amLODIPine [Norvasc] 5 mg PO DAILY 10/11/16 05/29/17 Aspirin EC [Ecotrin Low Dose] 81 mg PO HS 12/26/16 05/29/17 Ondansetron [Zofran] 4 mg PO Q8H PRN 05/29/17 05/29/17 Sennosides [Senna] 17.2 mg PO DAILY PRN 05/29/17 05/29/17 Previous Rx's Medication Instructions Recorded Hydrocodone/Acetaminophen [[place] 1 each PO Q6HR PRN #20 tab 05/29/17 5325] Allergies Allergy/AdvReac Type Severity Reaction Status Date / Time No Known Allergies Allergy Verified 05/29/17 21:42 Review of Systems ROS Other: All systems not noted in ROS Statement are negative. <Roberth Bishop - Last Filed: 05/29/17 23:56> ROS Other: All systems not noted in ROS Statement are negative. <Diana Nugent - Last Filed: 05/30/17 00:02> ROS Statement: Those systems with pertinent positive or pertinent negative responses have been documented in the HPI. 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 Last Myocardial Infarction Date:: 2014 History of Any Multi-Drug Resistant Organisms: None Reported Past Surgical History: Adenoidectomy, Heart Catheterization With Stent, Hernia Repair, Orthopedic Surgery, Tonsillectomy Additional Past Surgical History / Comment(s): Bilateral carpal tunnel, bone spur removals to bilateral heels and FEET, X6 cardiac STENTS, RT KNEE BONE SPURS , CATARACTS JA with lens implants, JA INGUINAL HERNIA REPAIR AND UMBILLICAL. removal of malignant tumor from back Past Anesthesia/Blood Transfusion Reactions: No Reported Reaction Additional Past Anesthesia/Blood Transfusion Reaction / Comment(s): Pt states he has received blood in the past without reaction. Date of Last Stent Placement:: 2014 Past Psychological History: Depression Smoking Status: Never smoker Past Alcohol Use History: None Reported Past Drug Use History: None Reported - Past Family History Father Family Medical History: Myocardial Infarction ([place]) Additional Family Medical History / Comment(s): PTBA Mother Family Medical History: CVA/TIA, Diabetes Mellitus Additional Family Medical History / Comment(s): Mother of a CVA at the age of 82 yrs. Brother(s) Family Medical History: Cancer <Diana Nugent - Last Filed: 05/30/17 00:02> General Exam <Roberth Bishop - Last Filed: 05/29/17 23:56> Limitations: no limitations General appearance: alert, in no apparent distress Head exam: Present: atraumatic, normocephalic, normal inspection Eye exam: Present: normal appearance, PERRL, EOMI Pupils: Present: normal accommodation ENT exam: Present: normal exam Neck exam: Present: normal inspection Respiratory exam: Present: normal lung sounds bilaterally. Absent: respiratory distress Cardiovascular Exam: Present: regular rate, normal rhythm, normal heart sounds GI/Abdominal exam: Present: soft, tenderness (mild right lower quadrant and right groin tenderness), normal bowel sounds. Absent: distended, guarding, rebound, rigid Extremities exam: Present: normal inspection Back exam: Present: normal inspection Neurological exam: Present: alert, oriented X3, CN II-XII intact Psychiatric exam: Present: normal affect, normal mood Skin exam: Present: warm, dry, intact, normal color. Absent: rash <Diana Nugent - Last Filed: 05/30/17 00:02> - General Exam Comments Initial Comments: laying in exam room, no acute distress. (Diana Nugent) Medical Decision Making - Lab Data Result diagrams: 05/29/17 22:00 05/29/17 22:00 <Roberth Bishop - Last Filed: 05/29/17 23:56> - Lab Data Result diagrams: 05/29/17 22:00 05/29/17 22:00 <Diana Nugent - Last Filed: 05/30/17 00:02> - Medical Decision Making Medical decision making I reviewed the patient's past history, examined the patient and this was history. He's had 4-1/2 years of pain in the medial right thigh up to the lower abdomen and down the medial left thigh. Palpation is area increases discomfort. His L1 nerve distribution. 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 He's had chemotherapy and radiation. We did discuss the possibility of a L1 radiculopathy distribution as he is describing. Patient has an appointment to follow-up with general surgeon. He reports his appetite is good vital signs are stable his pain goes away from takes pain medication for several hours and then returns. Patient be discharged and he'll follow up with his family physician and his general surgeon. Dr. Bishop (Roberth Bishop) - Lab Data Lab Results 05/29/17 05/29/17 05/29/17 Range/Units 22:00 22:00 22:00 WBC 4.4 (3.8-10.6) k/uL RBC 3.78 L (4.30-5.90) m/uL Hgb 11.4 L (13.0-17.5) gm/dL Hct 34.4 L (39.0-53.0) % MCV 91.1 (80.0-100.0) fL MCH 30.2 (25.0-35.0) pg MCHC 33.2 (31.0-37.0) g/dL RDW 14.3 (11.5-15.5) % Plt Count 175 (150-450) k/uL Neutrophils % 69 % Lymphocytes % 18 % Monocytes % 7 % Eosinophils % 3 % Basophils % 1 % Neutrophils # 3.0 (1.3-7.7) k/uL Lymphocytes # 0.8 L (1.0-4.8) k/uL Monocytes # 0.3 (0-1.0) k/uL Eosinophils # 0.1 (0-0.7) k/uL Basophils # 0.0 (0-0.2) k/uL PT (9.0-12.0) sec INR (<1.2) APTT (22.0-30.0) sec D-Dimer (<0.60) mg/L FEU Sodium 143 (137-145) mmol/L Potassium 4.0 (3.5-5.1) mmol/L Chloride 110 H (98-107) mmol/L Carbon Dioxide 21 L (22-30) mmol/L Anion Gap 12 mmol/L BUN 19 (9-20) mg/dL Creatinine 1.30 H (0.66-1.25) mg/dL Est GFR (MDRD) Af Amer >60 (>60 ml/min/1.73 sqM) Est GFR (MDRD) Non-Af 55 (>60 ml/min/1.73 sqM) Glucose 105 H (74-99) mg/dL Calcium 8.9 (8.4-10.2) mg/dL Magnesium 1.5 L (1.6-2.3) mg/dL Total Bilirubin 0.4 (0.2-1.3) mg/dL AST 21 (17-59) U/L ALT 34 (21-72) U/L Alkaline Phosphatase 103 (38-126) U/L Total Creatine Kinase 106 (55-170) U/L CK-MB (CK-2) 1.3 (0.0-2.4) ng/mL CK-MB (CK-2) Rel Index 1.2 Troponin I <0.012 (0.000-0.034) ng/mL NT-Pro-B Natriuret Pep pg/mL Total Protein 6.5 (6.3-8.2) g/dL Albumin 3.7 (3.5-5.0) g/dL Amylase 44 (30-110) U/L Lipase 143 (23-300) U/L Urine Color Urine Appearance (Clear) Urine pH (5.0-8.0) Ur Specific [place] (1.001-1.035) Urine Protein (Negative) Urine Glucose (UA) (Negative) Urine Ketones (Negative) Urine Blood (Negative) Urine Nitrite (Negative) Urine Bilirubin (Negative) Urine Urobilinogen (<2.0) mg/dL Ur Leukocyte Esterase (Negative) Urine RBC (0-5) /hpf Urine WBC (0-5) /hpf Ur Squamous Epith Cells (0-4) /hpf Urine Mucus (None) /hpf 05/29/17 05/29/17 05/29/17 Range/Units 22:00 22:00 22:01 WBC (3.8-10.6) k/uL RBC (4.30-5.90) m/uL Hgb (13.0-17.5) gm/dL Hct (39.0-53.0) % MCV (80.0-100.0) fL MCH (25.0-35.0) pg MCHC (31.0-37.0) g/dL RDW (11.5-15.5) % Plt Count (150-450) k/uL Neutrophils % % Lymphocytes % % Monocytes % % Eosinophils % % Basophils % % Neutrophils # (1.3-7.7) k/uL Lymphocytes # (1.0-4.8) k/uL Monocytes # (0-1.0) k/uL Eosinophils # (0-0.7) k/uL Basophils # (0-0.2) k/uL PT 11.8 (9.0-12.0) sec INR 1.2 H (<1.2) APTT 26.7 (22.0-30.0) sec D-Dimer 0.30 (<0.60) mg/L FEU Sodium (137-145) mmol/L Potassium (3.5-5.1) mmol/L Chloride (98-107) mmol/L Carbon Dioxide (22-30) mmol/L Anion Gap mmol/L BUN (9-20) mg/dL Creatinine (0.66-1.25) mg/dL Est GFR (MDRD) Af Amer (>60 ml/min/1.73 sqM) Est GFR (MDRD) Non-Af (>60 ml/min/1.73 sqM) Glucose (74-99) mg/dL Calcium (8.4-10.2) mg/dL Magnesium (1.6-2.3) mg/dL Total Bilirubin (0.2-1.3) mg/dL AST (17-59) U/L ALT (21-72) U/L Alkaline Phosphatase (38-126) U/L Total Creatine Kinase (55-170) U/L CK-MB (CK-2) (0.0-2.4) ng/mL CK-MB (CK-2) Rel Index Troponin I (0.000-0.034) ng/mL NT-Pro-B Natriuret Pep 196 pg/mL Total Protein (6.3-8.2) g/dL Albumin (3.5-5.0) g/dL Amylase (30-110) U/L Lipase (23-300) U/L Urine Color Yellow Urine Appearance Clear (Clear) Urine pH 6.0 (5.0-8.0) Ur Specific [place] 1.020 (1.001-1.035) Urine Protein Trace H (Negative) Urine Glucose (UA) Negative (Negative) Urine Ketones 1+ H (Negative) Urine Blood Negative (Negative) Urine Nitrite Negative (Negative) Urine Bilirubin Negative (Negative) Urine Urobilinogen <2.0 (<2.0) mg/dL Ur Leukocyte Esterase Trace H (Negative) Urine RBC 2 (0-5) /hpf Urine WBC 5 (0-5) /hpf Ur Squamous Epith Cells <1 (0-4) /hpf Urine Mucus Rare H (None) /hpf 05/29/17 22:11 normal sinus rhythm, ventricular rate 66 bpm, OH interval 152 ms, QRS duration 90 ms, QT/QTC 410/429 ms (Diana Nugent) Disposition <Roberth Bishop - Last Filed: 05/29/17 23:56> Time of Disposition: 00:00 <Diana Nugent - Last Filed: 05/30/17 00:02> Clinical Impression: Lumbar radiculopathy Disposition: HOME SELF-CARE Condition: Good Instructions: Lumbar Radiculopathy (ED) Additional Instructions: Take pain medications as needed. Please follow up with primary care provider or general surgeon.. If any new symptom arises or symptoms worsen, return to ER as soon as possible. Prescriptions: Hydrocodone/Acetaminophen [[place] 5-325] 1 each PO Q6HR PRN #20 tab PRN Reason: Pain Referrals: Micheal Adamson MD [Primary Care Provider] - 1-2 days
[2017-05-29 22:19] LABS: Basophils % (A) 1 %; CH 30.6; CHCM 33.7; Eosinophils # (A) 0.1 k/uL (0-0.7); Eosinophils % (A) 3 %; HCT 34.4 % (39.0-53.0); HDW 2.95; HGB 11.4 gm/dL (13.0-17.5); Luc # (Auto) 0.12; Luc % (Auto) 3; Lymphocytes # (A) 0.8 k/uL (1.0-4.8); Lymphocytes % (A) 18 %; MCH 30.2 pg (25.0-35.0); MCHC 33.2 g/dL (31.0-37.0); MCV 91.1 fL (80.0-100.0); Mean Platelet Volume 7.6; Monocytes # (A) 0.3 k/uL (0-1.0); Monocytes % (A) 7 %; Neutrophils % (A) 69 %; RBC 3.78 m/uL (4.30-5.90); RDW 14.3 % (11.5-15.5); WBC 4.4 k/uL (3.8-10.6); WBC (Perox) 4.63
[2017-05-29 22:28] LABS: ALT 34 U/L (21-72); AST 21 U/L (17-59); Alkaline Phosphatase 103 U/L (38-126); Amylase 44 U/L (30-110); Anion Gap 12 mmol/L; Blood Urea Nitrogen 19 mg/dL (9-20); Calcium 8.9 mg/dL (8.4-10.2); Carbon Dioxide 21 mmol/L (22-30); Chloride 110 mmol/L (98-107); Glucose 105 mg/dL (74-99); Magnesium 1.5 mg/dL (1.6-2.3); Non-African American GFR(MDRD) 55 (>60 ml/min/1.73 sqM); Sodium 143 mmol/L (137-145); Total Bilirubin 0.4 mg/dL (0.2-1.3); Total Protein 6.5 g/dL (6.3-8.2)
[2017-05-29 22:37] LABS: INR 1.2 (<1.2); Partial Thromboplastin Time 26.7 sec (22.0-30.0); Prothrombin Time 11.8 sec (9.0-12.0)
[2017-05-29 22:41] LABS: Appearance,Urine Clear (Clear); Bilirubin,Urine Negative (Negative); Glucose,Urine (UA) Negative (Negative); Ketones,Urine 1+ (Negative); Leukocyte Esterase,Urine Trace (Negative); Mucus,Urine Rare /hpf; Nitrite,Urine Negative (Negative); Particle Count 1379; Protein,Urine Trace (Negative); RBC,Urine 2 /hpf (0-5); Squamous Epithelial Cell,Urine <1 /hpf (0-4); UA Billing (MACRO vs. MICRO) MICRO; Urobilinogen,Urine <2.0 mg/dL (<2.0); WBC,Urine 5 /hpf (0-5)
[2017-05-29 22:47] LABS: Creatine Kinase 106 U/L (55-170)
--- NOTE | 2017-05-29 22:52 | XR ---
EXAM: XR Chest, 2 Views CLINICAL HISTORY: Reason: Chest Pain TECHNIQUE: Frontal and lateral views of the chest. COMPARISON: X-ray 01/10/2017. FINDINGS: Lungs: Unremarkable. No consolidation. Pleural space: Unremarkable. No pneumothorax. Heart: Unremarkable. No cardiomegaly. Mediastinum: Unchanged prominent bilateral charley. Bones/joints: Moderate degenerative changes of the spine. IMPRESSION: No acute cardiopulmonary process.
[2017-05-29 23:00] LABS: Creatine Kinase MB 1.3 ng/mL (0.0-2.4); Troponin I <0.012 ng/mL (0.000-0.034)
[2017-05-30 00:38] VITALS: BP 139/69; PULSE 65; RESP 18; TEMP 98.1
== END 2017-05-30 00:39 | disposition home or self-care (01) ==
LOC: EC 21:22
DX: M54.16 Radiculopathy, lumbar region (principal); R06.02 Shortness of breath; I10 Essential (primary) hypertension; I25.10 Atherosclerotic heart disease of native coronary artery without angina pectoris; E11.9 Type 2 diabetes mellitus without complications; M19.90 Unspecified osteoarthritis, unspecified site; N40.0 Benign prostatic hyperplasia without lower urinary tract symptoms; K21.9 Gastro-esophageal reflux disease without esophagitis; F32.9 Major depressive disorder, single episode, unspecified; E07.9 Disorder of thyroid, unspecified; I25.2 Old myocardial infarction; Z79.82 Long term (current) use of aspirin; Z79.899 Other long term (current) drug therapy; Z85.830 Personal history of malignant neoplasm of bone; Z87.19 Personal history of other diseases of the digestive system; Z86.79 Personal history of other diseases of the circulatory system; Z92.21 Personal history of antineoplastic chemotherapy; Z92.3 Personal history of irradiation; Z98.890 Other specified postprocedural states; Z94.81 Bone marrow transplant status
CPT/HCPCS: 36415; 71020; 80053; 81001; 82150; 82550; 82553; 83690; 83735; 83880; 84484; 85025; 85379; 85610; 85730; 93005; 96360; 96361; 99285

== ENCOUNTER 2017-06-04 07:49 | Day surgery (SDC) | payer MEDICARE, OTHER ==
[2017-06-03 15:07] VITALS: BMI 27.8
[~2017-06-04 07:49] MED LIST: LIDOCAINE 1% 20 ML VIAL (10MG/ML) FOR IV START INTRADERMA PRN
[2017-06-04] MEDS: LACTATED RINGERS 1,000 ML IV SCH ×2 (08:24→09:30)
[2017-06-04 08:26] VITALS: TEMP 97.2
[2017-06-04 08:27] LABS: Glucose,Whole Blood 112 mg/dL (75-99)
[2017-06-04] MEDS ORDERED: LIDOCAINE 1% INJ 10MG/ML (20 ML MDV) ONE (09:34)
[2017-06-04] MEDS ORDERED: PROPOFOL 10 MG/ML 20 ML VIAL IV ONE (09:34)
--- NOTE | 2017-06-04 09:36 | P.GSHP ---
History of Present Illness H&P Date: 06/04/17 CHIEF COMPLAINT: GI Bleed HISTORY OF PRESENT ILLNESS: The patient is a 71-year-old male who presents reports gastroesophageal reflux disease and GI bleed. Upper endoscopy was offered for further evaluation and management. PAST MEDICAL HISTORY: Please see list. PAST SURGICAL HISTORY: Please see list. MEDICATIONS: Please see list. ALLERGIES: Please see list. SOCIAL HISTORY: No illicit drug use FAMILY HISTORY: No reports of Crohn disease or ulcerative colitis. REVIEW OF ORGAN SYSTEMS: CONSTITUTIONAL: No reports of fevers or chills. GI: Denies any blood in stools or constipation. PHYSICAL EXAM: VITAL SIGNS: Stable GENERAL: Well-developed and pleasant in no acute distress. HEENT: No scleral icterus. Extraocular movements grossly intact. Moist buccal mucosa. NECK: Supple without lymphadenopathy. CHEST: Unlabored respirations. Equal bilateral excursions. CARDIOVASCULAR: Regular rate and rhythm. Distal 2+ pulses. ABDOMEN: Soft, nondistended. MUSCULOSKELETAL: No clubbing, cyanosis, or edema. ASSESSMENT: 1. Gastroesophageal reflux disease PLAN: 1. 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 Last Myocardial Infarction Date:: 2014 History of Any Multi-Drug Resistant Organisms: None Reported Past Surgical History: Adenoidectomy, Cholecystectomy, Heart Catheterization With Stent, Hernia Repair, Orthopedic Surgery, Tonsillectomy Additional Past Surgical History / Comment(s): Bilateral carpal tunnel, bone spur removals to bilateral heels and FEET, X7 cardiac STENTS, RT KNEE BONE SPURS , CATARACTS JA with lens implants, JA INGUINAL HERNIA REPAIR AND UMBILLICAL. removal of malignant tumor from back Past Anesthesia/Blood Transfusion Reactions: No Reported Reaction Additional Past Anesthesia/Blood Transfusion Reaction / Comment(s): Pt states he has received blood in the past without reaction. Date of Last Stent Placement:: 2014 Smoking Status: Never smoker - Past Family History Father Family Medical History: Myocardial Infarction ([place]) Additional Family Medical History / Comment(s): PTBA Mother Family Medical History: CVA/TIA, Diabetes Mellitus Additional Family Medical History / Comment(s): Mother of a CVA at the age of 82 yrs. Brother(s) Family Medical History: Cancer Medications and Allergies Home Medications Medication Instructions Recorded Confirmed Type Dicyclomine HCl 20 mg PO HS 05/24/14 06/04/17 History Levothyroxine Sodium [Synthroid] 100 mcg PO QAM 05/24/14 06/04/17 History Omeprazole 40 mg PO DAILY 05/24/14 06/04/17 History metFORMIN HCL 1,000 mg PO BID 05/24/14 06/04/17 History Nortriptyline [Pamelor] 25 mg PO HS 02/23/15 06/04/17 History Acyclovir 400 mg PO BID 10/11/16 06/04/17 History Metoprolol Succinate (ER) [Toprol 100 mg PO QAM 10/11/16 06/04/17 History XL] Tamsulosin [Flomax] 0.4 mg PO HS 10/11/16 06/04/17 History amLODIPine [Norvasc] 5 mg PO QAM 10/11/16 06/04/17 History Aspirin EC [Ecotrin Low Dose] 81 mg PO HS 12/26/16 06/04/17 History Ondansetron [Zofran] 4 mg PO Q8H PRN 05/29/17 06/04/17 History Sennosides [Senna] 17.2 mg PO DAILY PRN 05/29/17 06/04/17 History Allergies Allergy/AdvReac Type Severity Reaction Status Date / Time No Known Allergies Allergy Verified 06/04/17 08:10 Surgical - Exam Vital Signs Temp Pulse Resp BP Pulse Ox 97.2 F L 61 18 155/87 98 06/04/17 08:24 06/04/17 08:24 06/04/17 08:24 06/04/17 08:24 06/04/17 08:24 Results - Labs Abnormal Lab Results - Last 24 Hours (Table) 06/04/17 Range/Units 08:20 POC Glucose (mg/dL) 112 H (75-99) mg/dL
--- NOTE | 2017-06-04 09:48 | P.PCN ---
Date of Procedure: 06/04/17 Preoperative Diagnosis: Postoperative Diagnosis: Procedure(s) Performed: Implants: Indications for Procedure: Operative Findings: Description of Procedure: PREOPERATIVE DIAGNOSIS: Gastroesophageal reflux disease. Hiatal hernia. Gastrointestinal bleed. POSTOPERATIVE DIAGNOSIS: Gastroesophageal reflux disease. Hiatal hernia. Gastrointestinal bleed. Superficial gastric ulcers. Gastritis. Diaphragmatic hiatal hernia without obstruction. OPERATION: Esophagogastroduodenoscopy with biopsies along antrum. SURGEON: Juliette Manduajno MD ANESTHESIA: MAC. INDICATIONS: The patient is a 71-year-old female who presents with a history of reflux disease, hiatal hernia including gastrointestinal bleed. Benefits and risks of the procedure were described. Informed consent was obtained. DESCRIPTION: The patient was brought into the endoscopy suite and laid in the left lateral decubitus position. An Olympus gastroscope was passed along the posterior oropharynx down to the distal esophagus where the squamocolumnar junction was encountered at 39 cm from the incisors. The stomach was entered and no bile reflux was found. Additional findings are listed below. Biopsies with cold forceps were obtained of the antrum. The first through third portion of the duodenum was examined and unremarkable. Retroflexion of the scope confirmed Hill grade 3 lower esophageal valve. The squamocolumnar junction demostrated [place] grade A erosive esophagitis. The stomach was desufflated. The patient tolerated the procedure well. FINDINGS: Squamocolumnar junction 39 cm from the incisors. Diaphragmatic hiatus at 43 cm. Hiatal hernia 4 cm. Hill grade 3 lower esophageal valve. [place] grade A erosive esophagitis. No active duodenitis. Superficial gastric ulcers antrum without bleeding. Diffuse gastritis including the gastric cardia without active bleeding. RECOMMENDATIONS: Start medical therapy. He reports lower intestinal bleeding and recommend colonoscopy. Plan - Discharge Summary New Discharge Prescriptions: No Action metFORMIN HCL 1,000 mg PO BID Dicyclomine HCl 20 mg PO HS Levothyroxine Sodium [Synthroid] 100 mcg PO QAM Omeprazole 40 mg PO DAILY Nortriptyline [Pamelor] 25 mg PO HS Tamsulosin [Flomax] 0.4 mg PO HS amLODIPine [Norvasc] 5 mg PO QAM Metoprolol Succinate (ER) [Toprol XL] 100 mg PO QAM Acyclovir 400 mg PO BID Aspirin EC [Ecotrin Low Dose] 81 mg PO HS Ondansetron [Zofran] 4 mg PO Q8H PRN PRN Reason: Nausea Sennosides [Senna] 17.2 mg PO DAILY PRN PRN Reason: Constipation Hydrocodone/Acetaminophen [[place] 5-325] 1 each PO Q6HR PRN #20 tab PRN Reason: Pain Discharge Medication List Dicyclomine HCl 20 mg PO HS 05/24/14 [History] Levothyroxine Sodium [Synthroid] 100 mcg PO QAM 05/24/14 [History] Omeprazole 40 mg PO DAILY 05/24/14 [History] metFORMIN HCL 1,000 mg PO BID 05/24/14 [History] Nortriptyline [Pamelor] 25 mg PO HS 02/23/15 [History] Acyclovir 400 mg PO BID 10/11/16 [History] Metoprolol Succinate (ER) [Toprol XL] 100 mg PO QAM 10/11/16 [History] Tamsulosin [Flomax] 0.4 mg PO HS 10/11/16 [History] amLODIPine [Norvasc] 5 mg PO QAM 10/11/16 [History] Aspirin EC [Ecotrin Low Dose] 81 mg PO HS 12/26/16 [History] Hydrocodone/Acetaminophen [[place] 5-325] 1 each PO Q6HR PRN #20 tab 05/29/17 [Rx] Ondansetron [Zofran] 4 mg PO Q8H PRN 05/29/17 [History] Sennosides [Senna] 17.2 mg PO DAILY PRN 05/29/17 [History]
[2017-06-04 09:55] VITALS: RESP 16
[2017-06-04 10:44] VITALS: BP 151/75; PULSE 64
== END 2017-06-04 10:35 | disposition home or self-care (01) ==
LOC: ORWHC2ENDO 07:49
PROVIDERS: ATTEND Surgery Plastic and Reconstructive Surgery
DX: K21.0 Gastro-esophageal reflux disease with esophagitis (principal); K29.50 Unspecified chronic gastritis without bleeding; K25.9 Gastric ulcer, unspecified as acute or chronic, without hemorrhage or perforation; K44.9 Diaphragmatic hernia without obstruction or gangrene; I25.119 Atherosclerotic heart disease of native coronary artery with unspecified angina pectoris; E11.9 Type 2 diabetes mellitus without complications; I10 Essential (primary) hypertension; M19.90 Unspecified osteoarthritis, unspecified site; N40.0 Benign prostatic hyperplasia without lower urinary tract symptoms; E07.9 Disorder of thyroid, unspecified; I25.2 Old myocardial infarction; Z79.84 Long term (current) use of oral hypoglycemic drugs; Z79.891 Long term (current) use of opiate analgesic; Z79.82 Long term (current) use of aspirin; Z79.899 Other long term (current) drug therapy; Z85.830 Personal history of malignant neoplasm of bone; Z86.718 Personal history of other venous thrombosis and embolism; Z95.5 Presence of coronary angioplasty implant and graft; Z82.49 Family history of ischemic heart disease and other diseases of the circulatory system; Z83.3 Family history of diabetes mellitus; Z80.9 Family history of malignant neoplasm, unspecified
CPT/HCPCS: 43239; 88305; 88342; J2001; J2704

== ENCOUNTER 2017-06-06 10:47 | Day surgery (SDC) | payer MEDICARE, OTHER ==
[2017-06-04 14:43] VITALS: BMI 27.8
[~2017-06-06 10:47] MED LIST changes: +LACTATED RINGERS 1,000 ML IV SCH
[2017-06-06 12:46] VITALS: RESP 16; TEMP 97.9
[2017-06-06 12:51] LABS: Glucose,Whole Blood 106 mg/dL (75-99)
[2017-06-06] MEDS ORDERED: PROPOFOL 10 MG/ML 20 ML VIAL IV ONE (14:16)
--- NOTE | 2017-06-06 14:26 | P.GSHP ---
History of Present Illness H&P Date: 06/06/17 CHIEF COMPLAINT: Abdominal pain with rectal bleeding HISTORY OF PRESENT ILLNESS: The patient is a 71-year-old male who presents with abdominal pain including rectal bleeding. Lower endoscopy was offered for further evaluation and management. PAST MEDICAL HISTORY: Please see list. PAST SURGICAL HISTORY: Please see list. MEDICATIONS: Please see list. ALLERGIES: Please see list. SOCIAL HISTORY: No illicit drug use FAMILY HISTORY: No reports of Crohn disease or ulcerative colitis. REVIEW OF ORGAN SYSTEMS: CONSTITUTIONAL: No reports of fevers or chills. No reports of weight loss despite prior attempts. PHYSICAL EXAM: VITAL SIGNS: Stable GENERAL: Well-developed pleasant male in no acute distress. HEENT: No scleral icterus. Extraocular movements grossly intact. Moist buccal mucosa. NECK: Supple without lymphadenopathy. CHEST: Unlabored respirations. Equal bilateral excursions. CARDIOVASCULAR: Regular rate and rhythm. Distal 2+ pulses. ABDOMEN: Soft, nondistended. Epigastric tenderness. MUSCULOSKELETAL: No clubbing, cyanosis, or edema. ASSESSMENT: 1. Rectal bleeding 2. Change in bowel habits. 3. Abdominal pain PLAN: 1. 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 Last Myocardial Infarction Date:: 2014 History of Any Multi-Drug Resistant Organisms: None Reported Past Surgical History: Adenoidectomy, Heart Catheterization With Stent, Hernia Repair, Orthopedic Surgery, Tonsillectomy Additional Past Surgical History / Comment(s): Bilateral carpal tunnel, bone spur removals to bilateral heels and FEET, X6 cardiac STENTS, RT KNEE BONE SPURS , CATARACTS JA with lens implants, JA INGUINAL HERNIA REPAIR AND UMBILLICAL. removal of malignant tumor from back,EGD 8-2-17 Past Anesthesia/Blood Transfusion Reactions: No Reported Reaction Additional Past Anesthesia/Blood Transfusion Reaction / Comment(s): Pt states he has received blood in the past without reaction. Date of Last Stent Placement:: 2014 Smoking Status: Never smoker - Past Family History Father Family Medical History: Myocardial Infarction ([place]) Additional Family Medical History / Comment(s): PTBA Mother Family Medical History: CVA/TIA, Diabetes Mellitus Additional Family Medical History / Comment(s): Mother of a CVA at the age of 82 yrs. Brother(s) Family Medical History: Cancer Medications and Allergies Home Medications Medication Instructions Recorded Confirmed Type Dicyclomine HCl 20 mg PO HS 05/24/14 06/06/17 History Levothyroxine Sodium [Synthroid] 100 mcg PO QAM 05/24/14 06/06/17 History Omeprazole 40 mg PO QAM 05/24/14 06/06/17 History metFORMIN HCL 1,000 mg PO BID 05/24/14 06/06/17 History Nortriptyline [Pamelor] 25 mg PO HS 02/23/15 06/06/17 History Acyclovir 400 mg PO BID 10/11/16 06/06/17 History Metoprolol Succinate (ER) [Toprol 100 mg PO QAM 10/11/16 06/06/17 History XL] Tamsulosin [Flomax] 0.4 mg PO HS 10/11/16 06/06/17 History amLODIPine [Norvasc] 5 mg PO QAM 10/11/16 06/06/17 History Aspirin EC [Ecotrin Low Dose] 81 mg PO HS 12/26/16 06/06/17 History Ondansetron [Zofran] 4 mg PO Q8H PRN 05/29/17 06/06/17 History Sennosides [Senna] 17.2 mg PO DAILY PRN 05/29/17 06/06/17 History Isosorbide Mononitrate ER [Imdur] 30 mg PO QAM 06/05/17 06/06/17 History Allergies Allergy/AdvReac Type Severity Reaction Status Date / Time No Known Allergies Allergy Verified 06/06/17 12:30 Surgical - Exam Vital Signs Temp Pulse Resp BP Pulse Ox 97.9 F 76 16 126/75 97 06/06/17 12:28 06/06/17 12:28 06/06/17 12:28 06/06/17 12:28 06/06/17 12:28 Results - Labs Abnormal Lab Results - Last 24 Hours (Table) 06/06/17 Range/Units 12:45 POC Glucose (mg/dL) 106 H (75-99) mg/dL
--- NOTE | 2017-06-06 14:44 | P.PCN ---
Date of Procedure: 06/06/17 Preoperative Diagnosis: Postoperative Diagnosis: Procedure(s) Performed: Implants: Indications for Procedure: Operative Findings: Description of Procedure: PREOPERATIVE DIAGNOSIS: History of rectal bleeding. History of abdominal pain. POSTOPERATIVE DIAGNOSIS: History of rectal bleeding. History of abdominal pain. OPERATION: Colonoscopy to the ileocecal valve and appendiceal orifice. SURGEON: Juliette Mandujano MD. ANESTHESIA: MAC. INDICATIONS: The patient is a 71-year-old male who presents with abdominal pain including rectal bleeding. Benefits and risks were described and informed consent was obtained. DESCRIPTION OF PROCEDURE: The patient had undergone Gatorade, MiraLAX and Dulcolax prep. He had been brought into the operating room and laid in the left lateral decubitus position. After adequate intravenous sedation, the rectum was examined with 2% lidocaine jelly. The prostate was smooth without abnormality. No external hemorrhoids were encountered. The rectal tone was within normal limits. No lesions were palpated in the rectal vault. An Olympus colonoscope was advanced until the ileocecal valve and appendiceal orifice were clearly viewed. The prep was excellent with clear visualization of the mucosal folds. The scope was removed with visualization of each mucosal fold. Bile was found along the proximal colon of dark consistency. No large scattered diverticulosis was encountered. No colonic polyps were found. No evidence of focal colitis was found. Retroflexion of the scope demonstrated grade 1 internal hemorrhoids without active bleeding or inflammation. The colon was desufflated. The patient had tolerated the procedure well. Withdrawal time was over 6 minutes. FINDINGS: Internal hemorrhoids, grade 1 No external prolapsed hemorrhoids. No arteriovenous malformations. No adenomatous polyps. No focal colitis. Dark bile found along the proximal colon. RECOMMENDATIONS: Recommend proceeding potentially with capsule endoscopy given both negative upper and lower endoscopy. Plan - Discharge Summary New Discharge Prescriptions: No Action metFORMIN HCL 1,000 mg PO BID Dicyclomine HCl 20 mg PO HS Levothyroxine Sodium [Synthroid] 100 mcg PO QAM Omeprazole 40 mg PO QAM Nortriptyline [Pamelor] 25 mg PO HS Tamsulosin [Flomax] 0.4 mg PO HS amLODIPine [Norvasc] 5 mg PO QAM Metoprolol Succinate (ER) [Toprol XL] 100 mg PO QAM Acyclovir 400 mg PO BID Aspirin EC [Ecotrin Low Dose] 81 mg PO HS Ondansetron [Zofran] 4 mg PO Q8H PRN PRN Reason: Nausea Sennosides [Senna] 17.2 mg PO DAILY PRN PRN Reason: Constipation Hydrocodone/Acetaminophen [[place] 5-325] 1 each PO Q6HR PRN #20 tab PRN Reason: Pain Isosorbide Mononitrate ER [Imdur] 30 mg PO QAM Discharge Medication List Dicyclomine HCl 20 mg PO HS 05/24/14 [History] Levothyroxine Sodium [Synthroid] 100 mcg PO QAM 05/24/14 [History] Omeprazole 40 mg PO QAM 05/24/14 [History] metFORMIN HCL 1,000 mg PO BID 05/24/14 [History] Nortriptyline [Pamelor] 25 mg PO HS 02/23/15 [History] Acyclovir 400 mg PO BID 10/11/16 [History] Metoprolol Succinate (ER) [Toprol XL] 100 mg PO QAM 10/11/16 [History] Tamsulosin [Flomax] 0.4 mg PO HS 10/11/16 [History] amLODIPine [Norvasc] 5 mg PO QAM 10/11/16 [History] Aspirin EC [Ecotrin Low Dose] 81 mg PO HS 12/26/16 [History] Hydrocodone/Acetaminophen [[place] 5-325] 1 each PO Q6HR PRN #20 tab 05/29/17 [Rx] Ondansetron [Zofran] 4 mg PO Q8H PRN 05/29/17 [History] Sennosides [Senna] 17.2 mg PO DAILY PRN 05/29/17 [History] Isosorbide Mononitrate ER [Imdur] 30 mg PO QAM 06/05/17 [History]
[2017-06-06 15:13] VITALS: BP 123/79; PULSE 64
== END 2017-06-06 15:24 | disposition home or self-care (01) ==
LOC: ORWHC2ENDO 10:47
PROVIDERS: ATTEND Surgery Plastic and Reconstructive Surgery
DX: K64.0 First degree hemorrhoids (principal); R19.4 Change in bowel habit; R10.9 Unspecified abdominal pain; I25.10 Atherosclerotic heart disease of native coronary artery without angina pectoris; E11.9 Type 2 diabetes mellitus without complications; Z79.84 Long term (current) use of oral hypoglycemic drugs; K21.9 Gastro-esophageal reflux disease without esophagitis; I10 Essential (primary) hypertension; N40.0 Benign prostatic hyperplasia without lower urinary tract symptoms; E07.9 Disorder of thyroid, unspecified; Z95.5 Presence of coronary angioplasty implant and graft; F32.9 Major depressive disorder, single episode, unspecified; Z79.82 Long term (current) use of aspirin; Z79.891 Long term (current) use of opiate analgesic; Z79.899 Other long term (current) drug therapy
CPT/HCPCS: 45378; J2704

== ENCOUNTER 2017-06-09 11:06 | Observation (INO) | payer MEDICARE, OTHER ==
[2017-06-04 14:29] VITALS: BMI 27.8
--- NOTE | 2017-06-09 07:50 | P.GSHP ---
History of Present Illness H&P Date: 06/09/17 CHIEF COMPLAINT: History of intra-abdominal adhesions HISTORY OF PRESENT ILLNESS: The patient is a 71-year-old male who presents with history of intra-abdominal adhesions from multiple prior surgeries including increasing abdominal pain. He now presents for diagnostic laparoscopy including lysis of adhesions. PAST MEDICAL HISTORY: Please see list. PAST SURGICAL HISTORY: Please see list. MEDICATIONS: Please see list. ALLERGIES: Please see list. SOCIAL HISTORY: No illicit drug use FAMILY HISTORY: No reports of Crohn disease or ulcerative colitis. REVIEW OF ORGAN SYSTEMS: CONSTITUTIONAL: No reports of fevers or chills. GI: Denies any blood in stools or constipation. PHYSICAL EXAM: VITAL SIGNS: Stable GENERAL: Well-developed pleasant and in no acute distress. HEENT: No scleral icterus. Extraocular movements grossly intact. Moist buccal mucosa. NECK: Supple without lymphadenopathy. CHEST: Unlabored respirations. Equal bilateral excursions. CARDIOVASCULAR: Regular rate and rhythm. Distal 2+ pulses. ABDOMEN: Soft, diffuse abdominal tenderness. No peritonitis. MUSCULOSKELETAL: No clubbing, cyanosis, or edema. ASSESSMENT: 1. Diffuse abdominal pain. 2. History of multiple abdominal surgeries. 3. Intra-abdominal adhesions. PLAN: 1. Diagnostic laparoscopy with lysis of adhesions were described in detail including risk of injury to the intestine, need for further surgery, and open technique. 2. DVT prophylaxis. 3. Antibiotic prophylaxis. 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 Last Myocardial Infarction Date:: 2014 History of Any Multi-Drug Resistant Organisms: None Reported Past Surgical History: Adenoidectomy, Cholecystectomy, Heart Catheterization With Stent, Hernia Repair, Orthopedic Surgery, Tonsillectomy Additional Past Surgical History / Comment(s): Bilateral carpal tunnel, bone spur removals to bilateral heels and FEET, X7 cardiac STENTS, RT KNEE BONE SPURS , CATARACTS JA with lens implants, JA INGUINAL HERNIA REPAIR AND UMBILLICAL. removal of malignant tumor from back,EGD 06-04-17 Past Anesthesia/Blood Transfusion Reactions: No Reported Reaction Additional Past Anesthesia/Blood Transfusion Reaction / Comment(s): Pt states he has received blood in the past without reaction. Date of Last Stent Placement:: 2014 Smoking Status: Never smoker - Past Family History Father Family Medical History: Myocardial Infarction ([place]) Additional Family Medical History / Comment(s): PTBA Mother Family Medical History: CVA/TIA, Diabetes Mellitus Additional Family Medical History / Comment(s): Mother of a CVA at the age of 82 yrs. Brother(s) Family Medical History: Cancer Medications and Allergies Home Medications Medication Instructions Recorded Confirmed Type Dicyclomine HCl 20 mg PO HS 05/24/14 06/06/17 History Levothyroxine Sodium [Synthroid] 100 mcg PO QAM 05/24/14 06/06/17 History Omeprazole 40 mg PO QAM 05/24/14 06/06/17 History metFORMIN HCL 1,000 mg PO BID 05/24/14 06/06/17 History Nortriptyline [Pamelor] 25 mg PO HS 02/23/15 06/06/17 History Acyclovir 400 mg PO BID 10/11/16 06/06/17 History Metoprolol Succinate (ER) [Toprol 100 mg PO QAM 10/11/16 06/06/17 History XL] Tamsulosin [Flomax] 0.4 mg PO HS 10/11/16 06/06/17 History amLODIPine [Norvasc] 5 mg PO QAM 10/11/16 06/06/17 History Aspirin EC [Ecotrin Low Dose] 81 mg PO HS 12/26/16 06/06/17 History Ondansetron [Zofran] 4 mg PO Q8H PRN 05/29/17 06/06/17 History Sennosides [Senna] 17.2 mg PO DAILY PRN 05/29/17 06/06/17 History Isosorbide Mononitrate ER [Imdur] 30 mg PO QAM 06/05/17 06/06/17 History Allergies Allergy/AdvReac Type Severity Reaction Status Date / Time No Known Allergies Allergy Verified 06/06/17 12:30
[~2017-06-09 11:06] MED LIST changes: +ACETAMINOPHEN IV (For NPO) 1,000 MG in EMPTY BAG 1 BAG IVPB ONE; +DEXAMETHASONE SOD PHOSPHATE 10 MG/ML 1 ML VIAL IV ONE; +HEPARIN SODIUM,PORCINE 5,000 UNIT/ML 1 ML VIAL SQ ONE; -LACTATED RINGERS 1,000 ML IV SCH; -LIDOCAINE 1% 20 ML VIAL (10MG/ML) FOR IV START INTRADERMA PRN; +MIDAZOLAM 2 MG/2 ML VIAL IV PRN; +ONDANSETRON 4 MG/2 ML VIAL IVP ONE; +Pre Op ABX Message 1 EACH MISC MISCELLANE ONE; +ceFAZolin 2 GM in SODIUM CHLORIDE 0.9% 100 ML IVPB ONE
[2017-06-09] MEDS ORDERED: BUPIVACAINE (PF) 0.25% 30 ML VIAL SQ ONE (14:20)
[2017-06-09] MEDS ORDERED: HYDROcodone/APAP 5-325MG 1 EACH TAB PO PRN (16:03)
--- NOTE | 2017-06-09 16:06 | P.PN ---
Progress Note - Text Patient comes in with a history of severe chronic abdominal pain. I recommended observation with proceeding with diagnostic laparoscopy lysis of adhesions tomorrow. Patient has multiple comorbidities including hypertensive cardiomyopathy and diabetes type 2. He is agreeable with plan. May have diet today. Nothing by mouth after midnight for tomorrow's case.
[2017-06-09 17:08] LABS: Glucose,Whole Blood 105 mg/dL (75-99)
[2017-06-09] MEDS: INSULIN LISPRO (humaLOG) 300 UNIT/3 ML VIAL SQ SCH (17:28)
[2017-06-09 17:41] LABS: Basophils % (A) 0 %; CH 30.5; CHCM 32.6; Eosinophils # (A) 0.1 k/uL (0-0.7); Eosinophils % (A) 2 %; HCT 37.7 % (39.0-53.0); HGB 11.8 gm/dL (13.0-17.5); Luc % (Auto) 3; Lymphocytes # (A) 0.8 k/uL (1.0-4.8); Lymphocytes % (A) 23 %; MCH 29.5 pg (25.0-35.0); MCHC 31.4 g/dL (31.0-37.0); MCV 94.1 fL (80.0-100.0); Mean Platelet Volume 8.3; Monocytes # (A) 0.3 k/uL (0-1.0); Monocytes % (A) 10 %; Neutrophils % (A) 61 %; RDW 14.7 % (11.5-15.5); WBC 3.3 k/uL (3.8-10.6); WBC (Perox) 3.33
[2017-06-09 17:55] LABS: ALT 31 U/L (21-72); AST 23 U/L (17-59); Alkaline Phosphatase 68 U/L (38-126); Anion Gap 11 mmol/L; Blood Urea Nitrogen 15 mg/dL (9-20); Calcium 9.2 mg/dL (8.4-10.2); Carbon Dioxide 22 mmol/L (22-30); Chloride 110 mmol/L (98-107); Glucose 108 mg/dL (74-99); Non-African American GFR(MDRD) 56 (>60 ml/min/1.73 sqM); Potassium 3.7 mmol/L (3.5-5.1); Sodium 143 mmol/L (137-145); Total Bilirubin 0.9 mg/dL (0.2-1.3); Total Protein 6.9 g/dL (6.3-8.2)
[2017-06-09] MEDS: ACYCLOVIR 200 MG CAP PO SCH (20:04)
[2017-06-09] MEDS ORDERED: ONDANSETRON 4 MG/2 ML VIAL IVP PRN (20:28)
[2017-06-09 20:36] LABS: Glucose,Whole Blood 106 mg/dL (75-99)
[2017-06-09] MEDS ORDERED: DICYCLOMINE 20 MG TAB PO SCH (21:00)
[2017-06-09] MEDS ORDERED: TAMSULOSIN 0.4 MG CAP.ER.24H PO SCH (21:00)
[2017-06-09] MEDS ORDERED: MAGNESIUM SULFATE-D5W PMX 1 GM in DEXTROSE/WATER 1 100ML.BAG IVPB SCH (21:00)
[2017-06-09] MEDS ORDERED: NORTRIPTYLINE 25 MG CAP PO SCH (21:00)
--- NOTE | 2017-06-09 23:01 | P.PN ---
Progress Note - Text Patient seen and evaluated this evening. He is tolerating diet. We'll proceed with diagnostic laparoscopy with lysis of adhesions tomorrow. Possibility of hernia repair was described to the patient and was agreeable with plan.
[2017-06-10] MEDS ORDERED: METOCLOPRAMIDE 5 MG/ML 2 ML VIAL IVP SCH
[2017-06-10] MEDS ORDERED: LEVOTHYROXINE 100 MCG TAB PO SCH (06:30)
[2017-06-10 07:03] LABS: Glucose,Whole Blood 114 mg/dL (75-99)
[2017-06-10] MEDS: LACTATED RINGERS 1,000 ML IV SCH ×2 (07:51→10:58)
--- NOTE | 2017-06-10 07:58 | P.PN ---
Progress Note - Text Patient seen and evaluated this morning. Surgical plan for diagnostic laparoscopy was reviewed. Possibility of appendectomy, inguinal hernia repair was also described including lysis of adhesions.
--- NOTE | 2017-06-10 08:01 | P.HPADDEND ---
H&P Addendum H&P Addendum Date: 06/10/17 Patient seen and evaluated this morning. Surgical plan for diagnostic laparoscopy was reviewed. Possibility of appendectomy, inguinal hernia repair was also described including lysis of adhesions.
[2017-06-10] MEDS ORDERED: MIDAZOLAM 2 MG/2 ML VIAL ONE (08:31)
[2017-06-10] MEDS ORDERED: PHENYLEPHRINE-0.9% NACL SYG 1 MG/10 ML SYRINGE ONE (08:31)
[2017-06-10] MEDS ORDERED: VECURONIUM 10 MG VIAL IV ONE (08:31)
[2017-06-10] MEDS ORDERED: fentaNYL (PF) 50 MCG/ML 2 ML AMP ONE (08:31)
[2017-06-10] MEDS ORDERED: GLYCOPYRROLATE 0.2 MG/ML 2 ML VIAL ONE (08:31)
[2017-06-10] MEDS ORDERED: SUCCINYLCHOLINE CHLORIDE 100 MG/5 ML SYR IV ONE (08:31)
[2017-06-10] MEDS ORDERED: PROPOFOL 10 MG/ML 20 ML VIAL IV ONE (08:31)
[2017-06-10] MEDS ORDERED: HYDROmorphone (PF) 1 MG/ML ONE (08:31)
[2017-06-10] MEDS ORDERED: NEOSTIGMINE 1 MG/ML 10 ML VIAL ONE (08:31)
[2017-06-10] MEDS ORDERED: ePHEDrine SULFATE/0.9% NACL/PF 50 MG/5 ML SYRINGE IV ONE (08:31)
[2017-06-10] MEDS ORDERED: LIDOCAINE 1% INJ 10MG/ML (20 ML MDV) ONE (08:31)
[2017-06-10] MEDS ORDERED: ISOSORBIDE MONONITRATE ER 30 MG TAB.ER.24H PO SCH (09:00)
[2017-06-10] MEDS ORDERED: amLODIPine 5 MG TAB PO SCH (09:00)
[2017-06-10] MEDS ORDERED: METOPROLOL SUCCINATE (ER) 100 MG TAB.ER.24H PO SCH (09:00)
[2017-06-10] MEDS ORDERED: BUPIVACAIN-EPI 0.5%-1:200,000 30 ML VIAL SQ ONE (09:01)
--- NOTE | 2017-06-10 09:49 | P.OP ---
Date of Procedure: 06/10/17 Preoperative Diagnosis: Postoperative Diagnosis: Procedure(s) Performed: Implants: Indications for Procedure: Operative Findings: Description of Procedure: SURGEON: ERNESTO BROCK MD DATABASE SUPPORT: NONE. PREOPERATIVE DIAGNOSIS: 1. Chronic right lower quadrant abdominal pain. 2. Chronic right groin pain. 3. Previous history of bilateral inguinal hernia repair. 4. History of congestive heart failure. 5. Diabetes type 2, controlled. 6. Gastroesophageal reflux disease. 7. History of left lower quadrant abdominal pain. 8. Coronary artery disease. 9. Personal history of previous myocardial infarction. 10. History of previous leukemia. 11. Benign prostatic hypertrophy. POSTOPERATIVE DIAGNOSES: 1. Chronic right lower quadrant abdominal pain. 2. Chronic right groin pain. 3. Previous history of bilateral inguinal hernia repair. 4. History of congestive heart failure. 5. Diabetes type 2, controlled. 6. Gastroesophageal reflux disease. 7. History of left lower quadrant abdominal pain. 8. Coronary artery disease. 9. Personal history of previous myocardial infarction. 10. History of previous leukemia. 11. Benign prostatic hypertrophy. 12. Right inguinal lipoma. 13. Left lower quadrant peritoneal adhesions sigmoid colon to the left lower pelvis. 14. Nonspecific appendicitis. OPERATION: 1. Diagnostic laparoscopy. 2. Laparoscopic appendectomy. 3. Laparoscopic right groin exploration with reduction and excision of incarcerated right inguinal lipoma. 4. Laparoscopic endoscopic right inguinal hernia repair. 5. Laparoscopic lysis of adhesions involving left lower quadrant. IMPLANTS: None. ANESTHESIA: General with local anesthetic. ESTIMATED BLOOD LOSS: 5 mL. SPECIMENS: 1. Appendix. 2. Right inguinal lipoma with incarceration. COMPLICATIONS: None. INDICATIONS: The patient is a 71-year-old male with multiple admissions secondary to chronic bilateral lower abdominal pain right greater than left. He reports previous history of bilateral inguinal hernia repair. Reports they pain along the right lower quadrant also radiates to the right groin. He underwent urologic assessment including multiple diagnostic studies. Diagnostic laparoscopy with possible appendectomy as well as possible bilateral inguinal hernia repair with described. Benefits and risks including bleeding, infection, recurrence, as well as chronic pain and placement of mesh were described. Informed consent was obtained. DESCRIPTION: The patient was brought into the operating room, laid in supine position. After general induction, a Eller catheter was placed and the abdomen was prepped and draped in standard sterile fashion and placement of Ioban draping. Prior to incision, a timeout protocol was confirmed with surgical team regarding the patient's name including procedures to be performed. Via the epigastrium of the left upper abdomen a 0 degree 5 mm laparoscopic trocar entry was performed after anesthetizing the skin with 0.5% Marcaine with epinephrine and incised using a #11 blade. An optical view trocar entry was performed. Diagnostic laparoscopy demonstrated adhesions along the left lower quadrant and sigmoid colon to the left lower pelvis. With palpation along the right groin, a lipoma with incarceration was confirmed in the inguinal canal. The appendix was also identified without inflammatory changes involving the cecum or terminal ileum. The patient tolerated insufflation to 15 mm Hg pressure. Next, one 5 mm trocar and one 12-mm trocar were placed along the left lateral abdominal wall to address and reduce his right inguinal hernia. The patient was then placed in Trendelenburg position. The hernia sac was evaginated whereby the peritoneum was scored using electro- Bovie cautery including a combination of cordless Harmonic scalpel. Using continuous retraction as well as external pressure along the right groin, the right inguinal hernia was completely reduced into the abdominal cavity. Please note the hernia was identified medial to the epigastric vessels hence direct. Once completely reduced into the abdominal cavity, the peritoneal sac of the hernia was stripped and a lipoma of the right groin was reduced. The sac was resected and then passed off for further pathological analysis. The size of the hernia defect was 3 cm with intraoperative films obtained. Using a Endo stitch and 2-0 Surgidac, the peritoneal defect of the right inguinal hernia site was closed using a pursestring suture of 2-0 Surgidac with a Lapra-Ty. The defect was found to be completely closed after removal of the external pressure along the right groin. Complete reduction of the right inguinal hernia was confirmed. Attention was brought to the appendix. The base of the cecum was without inflammation. The terminal ileum was unremarkable. The ascending appendix found adherent to the right lower pelvis. The appendix was mobilized along its mesocolon using Sonicision. A 60 mm Endo YOGESH echelon stapler was fired using a deng vascular load. A staple load was used for complete division of the base of the appendix. The staple line was completely hemostatic. Next, attention was brought to the left lower quadrant were the side wall of the sigmoid colon was found adherent along the left groin including left lower pelvis consistent with the patient's area of pain. Using blunt dissection with an atraumatic grasper including Sonicision, adhesions were released. The specimens were removed from the abdominal cavity with a Endo Catch bag through the 12 mm trocar. Hemostasis was excellent throughout the case. All instruments and pneumoperitoneum were evacuated from the abdominal cavity. The port sites were infiltrated local anesthetic. A right inguinal field block was also placed with local anesthetic. The incisions were reapproximated using 4-0 Monocryl in an interrupted subcuticular fashion. Dermabond was applied to the skin. At the end of the procedure, the needle sponge and instrument count had been verified correct by surgical tech. The patient had tolerated the procedure well and was taken to the postanesthesia care unit in stable condition. The Eller catheter was removed. FINDINGS: 1. Right incarcerated inguinal lipoma via direct hernia, initial. 2. Base of the appendix adherent along the right lower pelvis. 3. Left lower quadrant adhesions sigmoid colon to lower pelvis.
[2017-06-10] MEDS: HYDROmorphone 1 MG/ML 1 ML SYRINGE IVP PRN ×2 (09:50→10:04)
[2017-06-10] MEDS: ACYCLOVIR 200 MG CAP PO SCH (10:58)
[2017-06-10] MEDS: INSULIN LISPRO (humaLOG) 300 UNIT/3 ML VIAL SQ SCH ×3 (11:46→17:25)
[2017-06-10 11:58] LABS: Glucose,Whole Blood 163 mg/dL (75-99)
[2017-06-10 15:55] VITALS: BP 93/46; PULSE 64; RESP 18; TEMP 97.4
[2017-06-10 16:37] LABS: Glucose,Whole Blood 203 mg/dL (75-99)
== END 2017-06-10 18:50 | disposition home or self-care (01) ==
LOC: OR 11:06 → 3OBS 16:52
PROVIDERS: ADMIT Surgery Plastic and Reconstructive Surgery; ATTEND Surgery Plastic and Reconstructive Surgery
DX: K66.0 Peritoneal adhesions (postprocedural) (postinfection) (principal); G89.29 Other chronic pain; K40.90 Unilateral inguinal hernia, without obstruction or gangrene, not specified as recurrent; D17.9 Benign lipomatous neoplasm, unspecified; K37 Unspecified appendicitis; I11.0 Hypertensive heart disease with heart failure; I50.9 Heart failure, unspecified; I25.10 Atherosclerotic heart disease of native coronary artery without angina pectoris; N40.0 Benign prostatic hyperplasia without lower urinary tract symptoms; E11.9 Type 2 diabetes mellitus without complications; K21.9 Gastro-esophageal reflux disease without esophagitis; I25.2 Old myocardial infarction; M19.90 Unspecified osteoarthritis, unspecified site; E07.9 Disorder of thyroid, unspecified; Z85.830 Personal history of malignant neoplasm of bone; Z92.21 Personal history of antineoplastic chemotherapy; Z85.6 Personal history of leukemia; Z86.718 Personal history of other venous thrombosis and embolism; Z94.81 Bone marrow transplant status; Z95.5 Presence of coronary angioplasty implant and graft; Z79.899 Other long term (current) drug therapy; Z79.84 Long term (current) use of oral hypoglycemic drugs; Z79.82 Long term (current) use of aspirin
CPT/HCPCS: 44970; 49329; 49651; 55559; 88304; 80053; 83036; 85025; 88342; 88341; G0378 ×2; J2250; J1644; J1100; J2710; J0690; J2405; J2001; J3010; J1170; J0131; J2370; J0330; J2704

== ENCOUNTER 2017-06-28 01:19 | Observation (INO) | payer MEDICARE, OTHER ==
[2017-06-28] MEDS ORDERED: HYDROmorphone 1 MG/ML 1 ML SYRINGE IVP STA (01:41)
[2017-06-28] MEDS ORDERED: SODIUM CHLORIDE 0.9% 1,000 ML IV STA (01:41)
--- NOTE | 2017-06-28 01:44 | ED ---
General Adult HPI - General Chief complaint: Abdominal Pain Stated complaint: Abdominal pain Time Seen by Provider: 06/28/17 01:37 Source: patient, RN notes reviewed Mode of arrival: ambulatory Limitations: no limitations - History of Present Illness Initial comments: Patient is a pleasant 71-year-old male presenting to the emergency Department with complaints of abdominal discomfort. Onset of symptoms was just prior to arrival. Discomfort was right flank and sudden onset and severe. Discomfort is only moderate at this time. Patient did have recent appendectomy done on the seventh of this month however has been doing well since that surgery. Patient also did have upper and lower scopes prior to that. No nausea vomiting. patient diarrhea. No dysuria or hematuria. No testicle pain. - Related Data Home Medications Medication Instructions Recorded Confirmed Dicyclomine HCl 20 mg PO HS 05/24/14 06/28/17 Levothyroxine Sodium [Synthroid] 100 mcg PO QAM 05/24/14 06/28/17 Omeprazole 40 mg PO QAM 05/24/14 06/28/17 metFORMIN HCL 1,000 mg PO BID 05/24/14 06/28/17 Nortriptyline [Pamelor] 25 mg PO HS 02/23/15 06/28/17 Acyclovir 400 mg PO BID 10/11/16 06/28/17 Metoprolol Succinate (ER) [Toprol 100 mg PO QAM 10/11/16 06/28/17 XL] Tamsulosin [Flomax] 0.4 mg PO HS 10/11/16 06/28/17 amLODIPine [Norvasc] 5 mg PO QAM 10/11/16 06/28/17 Aspirin EC [Ecotrin Low Dose] 81 mg PO HS 12/26/16 06/28/17 Ondansetron [Zofran] 4 mg PO Q8H PRN 05/29/17 06/28/17 Sennosides [Senna] 17.2 mg PO DAILY PRN 05/29/17 06/28/17 Isosorbide Mononitrate ER [Imdur] 30 mg PO QAM 06/05/17 06/28/17 HYDROcodone/APAP 5-325MG [[place] 1 tab PO Q6HR PRN 06/09/17 06/28/17 5-325] Previous Rx's Medication Instructions Recorded Hydrocodone/Acetaminophen [[place] 1 - 2 each PO Q6HR PRN #20 tab 06/10/17 5-325] Allergies Allergy/AdvReac Type Severity Reaction Status Date / Time No Known Allergies Allergy Verified 06/06/17 12:30 Review of Systems ROS Statement: Those systems with pertinent positive or pertinent negative responses have been documented in the HPI. ROS Other: All systems not noted in ROS Statement are negative. Constitutional: Denies: fever Eyes: Denies: eye pain ENT: Denies: ear pain Respiratory: Denies: cough Cardiovascular: Denies: chest pain Endocrine: Denies: fatigue Gastrointestinal: Reports: abdominal pain. Denies: nausea, vomiting Genitourinary: Denies: dysuria Musculoskeletal: Denies: back pain Skin: Denies: rash Neurological: Denies: weakness Past Medical History Past Medical History: Coronary Artery Disease (CAD), Cancer, Chest Pain / Angina , Diabetes Mellitus, Deep Vein Thrombosis (DVT), GERD/Reflux, GI Bleed, Hypertension, Myocardial Infarction ([place]), Osteoarthritis (OA), Prostate Disorder , Renal Disease, Thyroid Disorder Additional Past Medical History / Comment(s): having abdominal pain and rectal bleeding,2014 diagnosed with bone cancer after found to have cancerous tumor on his back-removed and pt had chemo, 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 Last Myocardial Infarction Date:: 2014 History of Any Multi-Drug Resistant Organisms: None Reported Past Surgical History: Adenoidectomy, Cholecystectomy, Heart Catheterization With Stent, Hernia Repair, Orthopedic Surgery, Tonsillectomy Additional Past Surgical History / Comment(s): Bilateral carpal tunnel, bone spur removals to bilateral heels and FEET, X6 cardiac STENTS, RT KNEE BONE SPURS , CATARACTS JA with lens implants, JA INGUINAL HERNIA REPAIR AND UMBILLICAL. removal of malignant tumor from back,EGD 06-04-17 Past Anesthesia/Blood Transfusion Reactions: No Reported Reaction Additional Past Anesthesia/Blood Transfusion Reaction / Comment(s): Pt states he has received blood in the past without reaction. Date of Last Stent Placement:: 2014 Past Psychological History: Depression Smoking Status: Never smoker - Past Family History Father Family Medical History: Myocardial Infarction ([place]) Additional Family Medical History / Comment(s): PTBA Mother Family Medical History: CVA/TIA, Diabetes Mellitus Additional Family Medical History / Comment(s): Mother of a CVA at the age of 82 yrs. Brother(s) Family Medical History: Cancer General Exam Limitations: no limitations General appearance: alert, in no apparent distress Head exam: Present: atraumatic Eye exam: Present: normal appearance, PERRL ENT exam: Present: normal oropharynx Neck exam: Present: normal inspection Respiratory exam: Present: normal lung sounds bilaterally Cardiovascular Exam: Present: regular rate, normal rhythm Expanded Peripheral pulses: 2+: Posterior Tibialis (R), Posterior Tibialis (L), Dorsalis Pedis (R), Dorsalis Pedis (L) GI/Abdominal exam: Present: soft, tenderness (Mild tenderness right flank), normal bowel sounds. Absent: distended, guarding, rebound, rigid, pulsatile mass Extremities exam: Present: normal inspection Back exam: Present: CVA tenderness (R) (Mild tenderness just below the right CVA ) Neurological exam: Present: alert Psychiatric exam: Present: normal affect, normal mood Skin exam: Present: normal color Course Vital Signs 06/28/17 06/28/17 06/28/17 01:30 01:52 02:35 Temperature 98.4 F Pulse Rate 93 85 88 Respiratory 20 18 16 Rate Blood Pressure 183/96 169/83 173/84 O2 Sat by Pulse 96 97 96 Oximetry 06/28/17 06/28/17 03:46 04:43 Temperature 97.5 F L Pulse Rate 84 89 Respiratory 16 16 Rate Blood Pressure 142/71 157/78 O2 Sat by Pulse 96 96 Oximetry - Reevaluation(s) Reevaluation #1: 06/28/17 04:34 Patient reexamined and states he is starting to have chest discomfort. Patient along her as abdominal discomfort. Cardiac enzymes will be added. EKG Findings - EKG Comments: EKG Findings:: Normal sinus rhythm 89. LA 158. QRS 92. QT 352. QTC 428. Normal axis. Normal QRS. No acute ST change. Medical Decision Making - Medical Decision Making Patient again reexamined and does have some improvement with nitroglycerin. Case discussed with practitioner scrum coach, who will admit for Dr. Blanc, covering for Dr. Adamson. - Lab Data Result diagrams: 06/28/17 01:35 06/28/17 01:35 Lab Results 06/28/17 06/28/17 06/28/17 Range/Units 01:35 01:35 02:34 WBC 5.5 (3.8-10.6) k/uL RBC 4.09 L (4.30-5.90) m/uL Hgb 12.6 L (13.0-17.5) gm/dL Hct 37.3 L (39.0-53.0) % MCV 91.3 (80.0-100.0) fL MCH 30.8 (25.0-35.0) pg MCHC 33.7 (31.0-37.0) g/dL RDW 14.5 (11.5-15.5) % Plt Count 144 L (150-450) k/uL Neutrophils % 74 % Lymphocytes % 14 % Monocytes % 6 % Eosinophils % 3 % Basophils % 1 % Neutrophils # 4.1 (1.3-7.7) k/uL Lymphocytes # 0.8 L (1.0-4.8) k/uL Monocytes # 0.4 (0-1.0) k/uL Eosinophils # 0.1 (0-0.7) k/uL Basophils # 0.0 (0-0.2) k/uL Sodium 141 (137-145) mmol/L Potassium 4.7 (3.5-5.1) mmol/L Chloride 105 (98-107) mmol/L Carbon Dioxide 24 (22-30) mmol/L Anion Gap 12 mmol/L BUN 17 (9-20) mg/dL Creatinine 1.20 (0.66-1.25) mg/dL Est GFR (MDRD) Af Amer >60 (>60 ml/min/1.73 sqM) Est GFR (MDRD) Non-Af >60 (>60 ml/min/1.73 sqM) Glucose 92 (74-99) mg/dL Calcium 9.4 (8.4-10.2) mg/dL Total Bilirubin 0.4 (0.2-1.3) mg/dL AST 31 (17-59) U/L ALT 53 (21-72) U/L Alkaline Phosphatase 84 (38-126) U/L Total Creatine Kinase (55-170) U/L CK-MB (CK-2) (0.0-2.4) ng/mL CK-MB (CK-2) Rel Index Troponin I (0.000-0.034) ng/mL Total Protein 7.1 (6.3-8.2) g/dL Albumin 4.4 (3.5-5.0) g/dL Amylase 47 (30-110) U/L Lipase 109 (23-300) U/L Urine Color Light Yellow Urine Appearance Clear (Clear) Urine pH 7.5 (5.0-8.0) Ur Specific [place] 1.008 (1.001-1.035) Urine Protein Negative (Negative) Urine Glucose (UA) Negative (Negative) Urine Ketones Negative (Negative) Urine Blood Negative (Negative) Urine Nitrite Negative (Negative) Urine Bilirubin Negative (Negative) Urine Urobilinogen <2.0 (<2.0) mg/dL Ur Leukocyte Esterase Negative (Negative) 06/28/17 Range/Units 04:40 WBC (3.8-10.6) k/uL RBC (4.30-5.90) m/uL Hgb (13.0-17.5) gm/dL Hct (39.0-53.0) % MCV (80.0-100.0) fL MCH (25.0-35.0) pg MCHC (31.0-37.0) g/dL RDW (11.5-15.5) % Plt Count (150-450) k/uL Neutrophils % % Lymphocytes % % Monocytes % % Eosinophils % % Basophils % % Neutrophils # (1.3-7.7) k/uL Lymphocytes # (1.0-4.8) k/uL Monocytes # (0-1.0) k/uL Eosinophils # (0-0.7) k/uL Basophils # (0-0.2) k/uL Sodium (137-145) mmol/L Potassium (3.5-5.1) mmol/L Chloride (98-107) mmol/L Carbon Dioxide (22-30) mmol/L Anion Gap mmol/L BUN (9-20) mg/dL Creatinine (0.66-1.25) mg/dL Est GFR (MDRD) Af Amer (>60 ml/min/1.73 sqM) Est GFR (MDRD) Non-Af (>60 ml/min/1.73 sqM) Glucose (74-99) mg/dL Calcium (8.4-10.2) mg/dL Total Bilirubin (0.2-1.3) mg/dL AST (17-59) U/L ALT (21-72) U/L Alkaline Phosphatase (38-126) U/L Total Creatine Kinase 135 (55-170) U/L CK-MB (CK-2) 1.8 (0.0-2.4) ng/mL CK-MB (CK-2) Rel Index 1.3 Troponin I <0.012 (0.000-0.034) ng/mL Total Protein (6.3-8.2) g/dL Albumin (3.5-5.0) g/dL Amylase (30-110) U/L Lipase (23-300) U/L Urine Color Urine Appearance (Clear) Urine pH (5.0-8.0) Ur Specific [place] (1.001-1.035) Urine Protein (Negative) Urine Glucose (UA) (Negative) Urine Ketones (Negative) Urine Blood (Negative) Urine Nitrite (Negative) Urine Bilirubin (Negative) Urine Urobilinogen (<2.0) mg/dL Ur Leukocyte Esterase (Negative) - Radiology Data Radiology results: report reviewed (Computed tomography scan of the abdomen and pelvis reveals no acute abnormality.), image reviewed (KUB shows some increased stool. Chest x-ray shows no acute process) Disposition Clinical Impression: Abdominal pain, Chest pain Disposition: ADMITTED IP TO THIS [facility] Referrals: Micheal Adamson MD [Primary Care Provider] - 1-2 days Decision Time: 05:24
[2017-06-28 02:07] LABS: Basophils % (A) 1 %; CH 30.2; CHCM 33.2; Eosinophils # (A) 0.1 k/uL (0-0.7); Eosinophils % (A) 3 %; HCT 37.3 % (39.0-53.0); HDW 2.68; HGB 12.6 gm/dL (13.0-17.5); Luc # (Auto) 0.14; Luc % (Auto) 3; Lymphocytes # (A) 0.8 k/uL (1.0-4.8); Lymphocytes % (A) 14 %; MCH 30.8 pg (25.0-35.0); MCHC 33.7 g/dL (31.0-37.0); MCV 91.3 fL (80.0-100.0); Mean Platelet Volume 7.1; Monocytes # (A) 0.4 k/uL (0-1.0); Monocytes % (A) 6 %; Neutrophils # (A) 4.1 k/uL (1.3-7.7); Neutrophils % (A) 74 %; RBC 4.09 m/uL (4.30-5.90); RDW 14.5 % (11.5-15.5); WBC 5.5 k/uL (3.8-10.6); WBC (Perox) 5.49
[2017-06-28 02:15] LABS: ALT 53 U/L (21-72); AST 31 U/L (17-59); Alkaline Phosphatase 84 U/L (38-126); Amylase 47 U/L (30-110); Anion Gap 12 mmol/L; Blood Urea Nitrogen 17 mg/dL (9-20); Calcium 9.4 mg/dL (8.4-10.2); Carbon Dioxide 24 mmol/L (22-30); Chloride 105 mmol/L (98-107); Glucose 92 mg/dL (74-99); Non-African American GFR(MDRD) >60 (>60 ml/min/1.73 sqM); Potassium 4.7 mmol/L (3.5-5.1); Sodium 141 mmol/L (137-145); Total Bilirubin 0.4 mg/dL (0.2-1.3); Total Protein 7.1 g/dL (6.3-8.2)
[2017-06-28 02:46] LABS: Appearance,Urine Clear (Clear); Bilirubin,Urine Negative (Negative); Glucose,Urine (UA) Negative (Negative); Ketones,Urine Negative (Negative); Leukocyte Esterase,Urine Negative (Negative); Nitrite,Urine Negative (Negative); PH, Urine 7.5 (5.0-8.0); Protein,Urine Negative (Negative); Specific Gravity,Urine 1.008 (1.001-1.035); UA Billing (MACRO vs. MICRO) CHEM; Urobilinogen,Urine <2.0 mg/dL (<2.0)
--- NOTE | 2017-06-28 03:06 | XR ---
EXAM: XR KUB, 1 View CLINICAL HISTORY: Reason: abdominal pain TECHNIQUE: Frontal supine view of the abdomen/pelvis. COMPARISON: No relevant prior studies available. FINDINGS: Gastrointestinal tract: Stool throughout the colon. No dilation. Organs: Cholecystectomy noted. Bones/joints: Stable oval calcification over the left iliac wing. IMPRESSION: Stool throughout the colon.
[2017-06-28] MEDS ORDERED: RX INFO: IV CONTRAST WAS GIVEN 1 EACH MISC MISCELLANE PRN (03:15)
--- NOTE | 2017-06-28 03:53 | CT ---
EXAM: CT Abdomen and Pelvis With Intravenous Contrast CLINICAL HISTORY: Reason: Pain TECHNIQUE: Axial computed tomography images of the abdomen and pelvis with intravenous contrast. DLP is 1196.60 mGy-cm. This CT exam was performed using one or more of the following dose reduction techniques: automated exposure control, adjustment of the mA and/or kV according to patient size, and/or use of iterative reconstruction technique. COMPARISON: 05/28/17 FINDINGS: Lower thorax: No acute findings. ABDOMEN: Liver: Unremarkable. No mass. Gallbladder and bile ducts: Unremarkable. No calcified stones. No ductal dilation. Pancreas: Unremarkable. No mass. No ductal dilation. Spleen: Unremarkable. No splenomegaly. Adrenals: Unremarkable. No mass. Kidneys and ureters: Stable pararenal and cortical cysts in the left kidney. No hydronephrosis. Stomach and bowel: Unremarkable. No obstruction. No mucosal thickening. Appendix: No findings to suggest acute appendicitis. PELVIS: Bladder: Unremarkable. No mass. Reproductive: Unremarkable as visualized. ABDOMEN and PELVIS: Intraperitoneal space: Unremarkable. No free air. No significant fluid collection. Bones/joints: No acute fracture. No dislocation. Soft tissues: Unremarkable. Vasculature: Unremarkable. No abdominal aortic aneurysm. Lymph nodes: Unremarkable. No enlarged lymph nodes. IMPRESSION: No acute findings.
[2017-06-28] MEDS ORDERED: NITROGLYCERIN SL TABS 0.4 MG TAB SUBLINGUAL STA (04:34)
[2017-06-28] MEDS ORDERED: ASPIRIN 81 MG PO STA (04:34)
[2017-06-28 05:01] LABS: Creatine Kinase 135 U/L (55-170)
--- NOTE | 2017-06-28 05:08 | XR ---
EXAM: XR Chest, 1 View CLINICAL HISTORY: Reason: pain TECHNIQUE: Frontal view of the chest. COMPARISON: No relevant prior studies available. FINDINGS: Lungs: Unremarkable. No consolidation. Pleural space: Unremarkable. No pneumothorax. Heart: Unremarkable. No cardiomegaly. Mediastinum: Unremarkable. Bones/joints: Unremarkable. IMPRESSION: Normal chest x-ray.
[2017-06-28 05:12] LABS: Creatine Kinase MB 1.8 ng/mL (0.0-2.4); Troponin I <0.012 ng/mL (0.000-0.034)
[2017-06-28] MEDS ORDERED: NITROGLYCERIN SL TABS 0.4 MG TAB SUBLINGUAL PRN (05:24)
[2017-06-28 06:07] VITALS: RESP 18
[2017-06-28 06:17] VITALS: BMI 30.1
[2017-06-28] MEDS: NITROGLYCERIN OINT 1 INCH/GM PACKET TOPICAL SCH ×2 (06:40→11:44)
[2017-06-28 06:58] LABS: Glucose,Whole Blood 87 mg/dL (75-99)
[2017-06-28] MEDS ORDERED: amLODIPine 5 MG TAB PO SCH (09:15)
[2017-06-28] MEDS ORDERED: ISOSORBIDE MONONITRATE ER 30 MG TAB.ER.24H PO SCH (09:15)
[2017-06-28] MEDS ORDERED: METOPROLOL SUCCINATE (ER) 100 MG TAB.ER.24H PO SCH (09:15)
[2017-06-28 11:19] LABS: Creatine Kinase 124 U/L (55-170)
[2017-06-28 11:32] LABS: Creatine Kinase MB 1.9 ng/mL (0.0-2.4); Troponin I <0.012 ng/mL (0.000-0.034)
[2017-06-28 11:34] VITALS: BP 143/73; PULSE 84; TEMP 98.2
--- NOTE | 2017-06-28 11:44 | P.CRDCN ---
History of Present Illness History of present illness: Patient admitted with groin discomfort that went up to the abdomen and later he said it also went into his chest. Cardiac enzymes are normal. ECG shows normal ST segments baseline artifact. He has a director marketing analytics in [place] at the [facility] who had recently cleared him for surgery. At this point there is no further cardiac workup no further cardiac evaluation needed. 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 Last Myocardial Infarction Date:: 2014 History of Any Multi-Drug Resistant Organisms: None Reported Past Surgical History: Adenoidectomy, Appendectomy, Cholecystectomy, Heart Catheterization With Stent, Hernia Repair, Orthopedic Surgery, Tonsillectomy Additional Past Surgical History / Comment(s): Bilateral carpal tunnel, bone spur removals to bilateral heels and FEET, X6 cardiac STENTS, RT KNEE BONE SPURS , CATARACTS JA with lens implants, JA INGUINAL HERNIA REPAIR AND UMBILLICAL. removal of malignant tumor from back,EGD 06-04-17 Past Anesthesia/Blood Transfusion Reactions: No Reported Reaction Additional Past Anesthesia/Blood Transfusion Reaction / Comment(s): Pt states he has received blood in the past without reaction. Date of Last Stent Placement:: 2014 Past Psychological History: Depression Additional Psychological History / Comment(s): Pt states he has a brother who is in a wheelchair that lives with him. Pt is independent. 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 no service,worked 37 years at [employer]. Smoking Status: Never smoker Past Alcohol Use History: None Reported Past Drug Use History: None Reported - Past Family History Father Family Medical History: Myocardial Infarction ([place]) Additional Family Medical History / Comment(s): PTBA Mother Family Medical History: CVA/TIA, Diabetes Mellitus Additional Family Medical History / Comment(s): Mother of a CVA at the age of 82 yrs. Brother(s) Family Medical History: Cancer Medications and Allergies Home Medications Medication Instructions Recorded Confirmed Type Dicyclomine HCl 20 mg PO HS 05/24/14 06/28/17 History Levothyroxine Sodium [Synthroid] 100 mcg PO DAILY 05/24/14 06/28/17 History Omeprazole 40 mg PO DAILY 05/24/14 06/28/17 History metFORMIN HCL 1,000 mg PO BID 05/24/14 06/28/17 History Nortriptyline [Pamelor] 25 mg PO HS 02/23/15 06/28/17 History Acyclovir 400 mg PO BID 10/11/16 06/28/17 History Metoprolol Succinate (ER) [Toprol 100 mg PO DAILY 10/11/16 06/28/17 History XL] Tamsulosin [Flomax] 0.4 mg PO HS 10/11/16 06/28/17 History amLODIPine [Norvasc] 5 mg PO DAILY 10/11/16 06/28/17 History Aspirin EC [Ecotrin Low Dose] 81 mg PO HS 12/26/16 06/28/17 History Ondansetron [Zofran] 4 mg PO Q8H PRN 05/29/17 06/28/17 History Sennosides [Senna] 17.2 mg PO DAILY PRN 05/29/17 06/28/17 History Isosorbide Mononitrate ER [Imdur] 30 mg PO DAILY 06/05/17 06/28/17 History Hydrocodone/Acetaminophen [[place] 1 - 2 tab PO Q6HR PRN 06/28/17 06/28/17 History 5-325] LORazepam [Ativan] 0.5 mg PO DAILY 06/28/17 06/28/17 History Magnesium 133mg 133 mg PO DAILY 06/28/17 06/28/17 History Tacrolimus [Prograf] 1 mg PO DAILY 06/28/17 06/28/17 History Allergies Allergy/AdvReac Type Severity Reaction Status Date / Time No Known Allergies Allergy Verified 06/28/17 10:49 Physical Exam Vitals: Vital Signs Temp Pulse Pulse Pulse Resp BP BP 06/28/17 11:32 98.2 F 84 18 143/73 06/28/17 07:49 97.8 F 79 18 06/28/17 06:02 76 18 06/28/17 06:01 97.5 F L 85 18 179/87 06/28/17 05:38 97.7 F 83 18 166/84 06/28/17 04:43 89 16 157/78 06/28/17 03:46 97.5 F L 84 16 142/71 06/28/17 02:35 88 16 173/84 06/28/17 01:52 85 18 169/83 06/28/17 01:30 98.4 F 93 20 183/96 BP Pulse Ox 06/28/17 11:32 95 06/28/17 07:49 149/85 96 06/28/17 06:02 06/28/17 06:01 97 06/28/17 05:38 96 06/28/17 04:43 96 06/28/17 03:46 96 06/28/17 02:35 96 06/28/17 01:52 97 06/28/17 01:30 96 Intake and Output 06/27/17 06/28/17 06/28/17 22:59 06:59 14:59 Other: Voiding Method Toilet Toilet Weight 100.698 kg Results 06/28/17 01:35 06/28/17 01:35 Cardiac Enzymes 06/28/17 06/28/17 06/28/17 Range/Units 01:35 04:40 10:38 AST 31 (17-59) U/L CK-MB (CK-2) 1.8 1.9 (0.0-2.4) ng/mL Troponin I <0.012 <0.012 (0.000-0.034) ng/mL CBC 06/28/17 Range/Units 01:35 WBC 5.5 (3.8-10.6) k/uL RBC 4.09 L (4.30-5.90) m/uL Hgb 12.6 L (13.0-17.5) gm/dL Hct 37.3 L (39.0-53.0) % Plt Count 144 L (150-450) k/uL Comprehensive Metabolic Panel 06/28/17 Range/Units 01:35 Sodium 141 (137-145) mmol/L Potassium 4.7 (3.5-5.1) mmol/L Chloride 105 (98-107) mmol/L Carbon Dioxide 24 (22-30) mmol/L BUN 17 (9-20) mg/dL Creatinine 1.20 (0.66-1.25) mg/dL Glucose 92 (74-99) mg/dL Calcium 9.4 (8.4-10.2) mg/dL AST 31 (17-59) U/L ALT 53 (21-72) U/L Alkaline Phosphatase 84 (38-126) U/L Total Protein 7.1 (6.3-8.2) g/dL Albumin 4.4 (3.5-5.0) g/dL Current Medications Generic Name Dose Route Start Last Admin Trade Name Freq PRN Reason Stop Dose Admin Amlodipine Besylate 5 mg 06/28/17 09:15 06/28/17 10:07 Norvasc PO 5 mg QAM JULIANA Administration Aspirin 81 mg 06/28/17 21:00 Aspirin PO HS JULIANA Isosorbide Mononitrate 30 mg 06/28/17 09:15 06/28/17 10:06 Imdur PO 30 mg QAM JULIANA Administration Metoprolol Succinate 100 mg 06/28/17 09:15 06/28/17 10:06 Toprol Xl PO 100 mg QAM JULIANA Administration Miscellaneous Information 1 each 06/28/17 03:15 Rx Info: Iv Contrast Was Given MISCELLANE 06/30/17 03:15 DAILY PRN Per Protocol Nitroglycerin 1 inch 06/28/17 06:00 06/28/17 06:40 Nitro-Bid Oint TOPICAL Not Given Q6HR [facility] Nitroglycerin 0.4 mg 06/28/17 05:24 Nitrostat SUBLINGUAL Q5M PRN Chest Pain Sodium Chloride 10 ml 06/28/17 09:00 06/28/17 08:58 Saline Flush IV Not Given BID JULIANA Intake and Output 06/27/17 06/28/17 06/28/17 22:59 06:59 14:59 Other: Voiding Method Toilet Toilet Weight 100.698 kg 06/28/17 01:35 06/28/17 01:35
--- NOTE | 2017-06-28 11:57 | P.CRDCN ---
History of Present Illness Consult date: 06/28/17 Reason for Consult (text): chest pain Chief complaint: right groin pain, radiating to right chest with inspiration History of present illness: This pleasant 71-year-old gentleman with a history of coronary artery disease, status post stenting in 2014, cancer, prior bone marrow transplant, recent appendectomy, hypertension and diabetes. He was last seen by his deputy fire chief [place] [facility] [place] to undergoing appendectomy on the seventh of this month. He presented to the emergency department with complaints of right groin pain that subsequently radiated to his right chest. Pain occurred with breathing and palpation. Troponins have been negative. Old chart has been reviewed echocardiogram from January showed an ejection fraction of 55%. Upon examination , patient is resting in bed comfortably. He does complain of right-sided chest pain with inspiration and palpation. 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 Last Myocardial Infarction Date:: 2014 History of Any Multi-Drug Resistant Organisms: None Reported Past Surgical History: Adenoidectomy, Appendectomy, Cholecystectomy, Heart Catheterization With Stent, Hernia Repair, Orthopedic Surgery, Tonsillectomy Additional Past Surgical History / Comment(s): Bilateral carpal tunnel, bone spur removals to bilateral heels and FEET, X6 cardiac STENTS, RT KNEE BONE SPURS , CATARACTS JA with lens implants, JA INGUINAL HERNIA REPAIR AND UMBILLICAL. removal of malignant tumor from back,EGD 06-04-17 Past Anesthesia/Blood Transfusion Reactions: No Reported Reaction Additional Past Anesthesia/Blood Transfusion Reaction / Comment(s): Pt states he has received blood in the past without reaction. Date of Last Stent Placement:: 2014 Past Psychological History: Depression Additional Psychological History / Comment(s): Pt states he has a brother who is in a wheelchair that lives with him. Pt is independent. 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 no service,worked 37 years at [employer]. Smoking Status: Never smoker Past Alcohol Use History: None Reported Past Drug Use History: None Reported - Past Family History Father Family Medical History: Myocardial Infarction ([place]) Additional Family Medical History / Comment(s): PTBA Mother Family Medical History: CVA/TIA, Diabetes Mellitus Additional Family Medical History / Comment(s): Mother of a CVA at the age of 82 yrs. Brother(s) Family Medical History: Cancer Medications and Allergies Home Medications Medication Instructions Recorded Confirmed Type Dicyclomine HCl 20 mg PO HS 05/24/14 06/28/17 History Levothyroxine Sodium [Synthroid] 100 mcg PO DAILY 05/24/14 06/28/17 History Omeprazole 40 mg PO DAILY 05/24/14 06/28/17 History metFORMIN HCL 1,000 mg PO BID 05/24/14 06/28/17 History Nortriptyline [Pamelor] 25 mg PO HS 02/23/15 06/28/17 History Acyclovir 400 mg PO BID 10/11/16 06/28/17 History Metoprolol Succinate (ER) [Toprol 100 mg PO DAILY 10/11/16 06/28/17 History XL] Tamsulosin [Flomax] 0.4 mg PO HS 10/11/16 06/28/17 History amLODIPine [Norvasc] 5 mg PO DAILY 10/11/16 06/28/17 History Aspirin EC [Ecotrin Low Dose] 81 mg PO HS 12/26/16 06/28/17 History Ondansetron [Zofran] 4 mg PO Q8H PRN 05/29/17 06/28/17 History Sennosides [Senna] 17.2 mg PO DAILY PRN 05/29/17 06/28/17 History Isosorbide Mononitrate ER [Imdur] 30 mg PO DAILY 06/05/17 06/28/17 History Hydrocodone/Acetaminophen [[place]agle 1 - 2 tab PO Q6HR PRN 06/28/17 06/28/17 History 5-325] LORazepam [Ativan] 0.5 mg PO DAILY 06/28/17 06/28/17 History Magnesium 133mg 133 mg PO DAILY 06/28/17 06/28/17 History Tacrolimus [Prograf] 1 mg PO DAILY 06/28/17 06/28/17 History Allergies Allergy/AdvReac Type Severity Reaction Status Date / Time No Known Allergies Allergy Verified 06/28/17 10:49 Physical Exam Vitals: Vital Signs Temp Pulse Pulse Pulse Resp BP BP 06/28/17 11:32 98.2 F 84 18 143/73 06/28/17 07:49 97.8 F 79 18 06/28/17 06:02 76 18 06/28/17 06:01 97.5 F L 85 18 179/87 06/28/17 05:38 97.7 F 83 18 166/84 06/28/17 04:43 89 16 157/78 06/28/17 03:46 97.5 F L 84 16 142/71 06/28/17 02:35 88 16 173/84 06/28/17 01:52 85 18 169/83 06/28/17 01:30 98.4 F 93 20 183/96 BP Pulse Ox 06/28/17 11:32 95 06/28/17 07:49 149/85 96 06/28/17 06:02 06/28/17 06:01 97 06/28/17 05:38 96 06/28/17 04:43 96 06/28/17 03:46 96 06/28/17 02:35 96 06/28/17 01:52 97 06/28/17 01:30 96 Intake and Output 06/27/17 06/28/17 06/28/17 22:59 06:59 14:59 Other: Voiding Method Toilet Toilet Weight 100.698 kg PHYSICAL EXAMINATION: HEENT: Head is atraumatic, normocephalic. Pupils equal, round. Neck is supple. There is no elevated jugular venous pressure. HEART EXAMINATION: Heart sounds regular, S1 and S2 normal. No murmur or gallop heard. CHEST EXAMINATION: Lungs are clear to auscultation and precussion. Right sided Chest wall tenderness is noted on palpation and with deep breathing. ABDOMEN: Soft, nontender. Bowel sounds are heard. No organomegaly noted. EXTREMITIES: 2+ peripheral pulses with no evidence of peripheral edema and no calf tenderness noted. NEUROLOGIC patient is awake, alert and oriented x3. . Results 06/28/17 01:35 06/28/17 01:35 Cardiac Enzymes 06/28/17 06/28/17 06/28/17 Range/Units 01:35 04:40 10:38 AST 31 (17-59) U/L CK-MB (CK-2) 1.8 1.9 (0.0-2.4) ng/mL Troponin I <0.012 <0.012 (0.000-0.034) ng/mL CBC 06/28/17 Range/Units 01:35 WBC 5.5 (3.8-10.6) k/uL RBC 4.09 L (4.30-5.90) m/uL Hgb 12.6 L (13.0-17.5) gm/dL Hct 37.3 L (39.0-53.0) % Plt Count 144 L (150-450) k/uL Comprehensive Metabolic Panel 06/28/17 Range/Units 01:35 Sodium 141 (137-145) mmol/L Potassium 4.7 (3.5-5.1) mmol/L Chloride 105 (98-107) mmol/L Carbon Dioxide 24 (22-30) mmol/L BUN 17 (9-20) mg/dL Creatinine 1.20 (0.66-1.25) mg/dL Glucose 92 (74-99) mg/dL Calcium 9.4 (8.4-10.2) mg/dL AST 31 (17-59) U/L ALT 53 (21-72) U/L Alkaline Phosphatase 84 (38-126) U/L Total Protein 7.1 (6.3-8.2) g/dL Albumin 4.4 (3.5-5.0) g/dL Current Medications Generic Name Dose Route Start Last Admin Trade Name Freq PRN Reason Stop Dose Admin Amlodipine Besylate 5 mg 06/28/17 09:15 06/28/17 10:07 Norvasc PO 5 mg QAM JULIANA Administration Aspirin 81 mg 06/28/17 21:00 Aspirin PO HS JULIANA Isosorbide Mononitrate 30 mg 06/28/17 09:15 06/28/17 10:06 Imdur PO 30 mg QAM JULIANA Administration Metoprolol Succinate 100 mg 06/28/17 09:15 06/28/17 10:06 Toprol Xl PO 100 mg QAM JULIANA Administration Miscellaneous Information 1 each 06/28/17 03:15 Rx Info: Iv Contrast Was Given MISCELLANE 06/30/17 03:15 DAILY PRN Per Protocol Nitroglycerin 1 inch 06/28/17 06:00 06/28/17 11:44 Nitro-Bid Oint TOPICAL Not Given Q6HR JULIANA Nitroglycerin 0.4 mg 06/28/17 05:24 Nitrostat SUBLINGUAL Q5M PRN Chest Pain Sodium Chloride 10 ml 06/28/17 09:00 06/28/17 08:58 Saline Flush IV Not Given BID JULIANA Intake and Output 06/27/17 06/28/17 06/28/17 22:59 06:59 14:59 Other: Voiding Method Toilet Toilet Weight 100.698 kg 06/28/17 01:35 06/28/17 01:35 EKG Interpretations (text) Sinus rhythm Assessment and Plan Plan: Assessment and plan #1 right sided chest discomfort with inspiration and palpation, not consistent with angina #2 hypertension #3 diabetes #4 history of coronary artery disease with most recent stenting in 2014 From cardiology perspective, Patient was advised to follow-up with his primary deputy fire chief within the next 2 weeks. Patient may be discharged home today. MIXING ENGINEER note has been reviewed, I agree with a documented findings and plan of care. Patient was seen and examined.
[2017-06-28 12:00] LABS: Glucose,Whole Blood 123 mg/dL (75-99)
[2017-06-28 15:20] LABS: Creatine Kinase 116 U/L (55-170)
[2017-06-28 15:33] LABS: Creatine Kinase MB 1.7 ng/mL (0.0-2.4); Troponin I <0.012 ng/mL (0.000-0.034)
[2017-06-28] MEDS ORDERED: ASPIRIN 81 MG PO SCH (21:00)
[2017-06-29] MEDS ORDERED: ASPIRIN 325 MG TAB PO SCH (09:00)
--- NOTE | 2017-06-29 12:40 | HP ---
DATE OF ADMISSION: 06/28/2017 I am covering for Dr. Micheal Adamson. HISTORY AND PHYSICAL EXAMINATION/DISCHARGE SUMMARY CHIEF COMPLAINT: Abdominal and chest pain. HISTORY OF PRESENT ILLNESS: This 71-year-old gentleman with past medical history of multiple medical problems including history of CAD, history of DVT, history of myocardial infarction, history of adenoidectomy, CAD/stent being followed by Dr. Micheal Adamson in the outpatient setting. The patient was admitted to the hospital with complaints of abdominal pain which were diffuse in the right lower quadrant and radiating to the chest also. The patient came to [facility] and the patient had multiple evaluations including KUB, chest x-ray, abdominal and pelvis CT scan, which did not show any acute abnormality. Cardiac markers also negative at this time. Cardiology evaluating the patient. There is no history of fever, rigors or chills. No history of headache, loss of consciousness or seizures. The patient apparently had workup in [facility] also. Past medical history of CAD, stent, history of DVT, GI bleed, hypertension, myocardial infarction, DJD. Mediations prior to admission include: Home medications are: 1. Prograf 1 mg po daily. 2. Magnesium 133 mg daily. 3. Metformin 1000 mg po b.i.d. 4. Norvasc 5 mg daily. 5. Flomax 0.4 q.h.s. 7. Zofran 4 mg q8h prn. 8. Omeprazole 40 mg po daily. 9. Pamelor 25 mg q.h.s. 10. Toprol XL 100 mg po daily. 11. Synthroid 100 mcg po daily. 12. Ativan 0.5 mg po daily. 13. Imdur 30 mg po daily. 14. [place] q6h prn. 16. Ecotrin 81 mg daily. ALLERGIES: None. FAMILY HISTORY: History of myocardial infarction and in the family. SOCIAL HISTORY: No history of smoking. No history of alcohol intake. REVIEW OF SYSTEMS: HEENT: No diminished vision. No diminished hearing. Cardiovascular system: As mentioned earlier. Respiratory: As mentioned earlier. GI: No nausea or vomiting. : No dysuria. Nervous system: No numbness, weakness. Allergy/Immunology: No asthma or hayfever. Musculoskeletal : As mentioned earlier. Hematology/oncology: No history of anemia. Endocrine: No history of diabetes mellitus or hypothyroidism. Constitutional: As mentioned earlier. Dermatology: Negative. Rheumatology: Negative. Psychiatry: As mentioned earlier. PHYSICAL EXAMINATION: The patient is alert, oriented times three. Pulse 84. Blood pressure 143/77. Respiratory rate 18, temperature 98.2. Pulse ox 94% on room air. HEENT: Conjunctivae normal. NECK: No JVD. Cardiovascular: S1, S2 muffled. Respiratory: Breath sounds diminished at the bases. A few scattered rhonchi and crackles. Abdomen is soft, mild diffuse discomfort. There is no guarding. There is no mass palpable. Legs: No edema. No swelling. Nervous system: Higher functions as mentioned earlier. Moves all four limbs. Lymphatics: No lymph nodes palpable in the neck, axilla or groin. Skin: No ulcer, rash or bleeding. LABS: WBC 5.2, hemoglobin 12.6. FINAL DIAGNOSES: 1. Abdominal pain, chest pain, possible acute gastritis for evaluation. 2. Coronary artery disease/stent. 3. Deep venous thrombosis. 4. Diabetes mellitus Type 2. 5. History of bone marrow transplant. RECOMMENDATIONS AND DISCUSSION: In this 71 -year-old gentleman who presented with multiple medical issues, at this time, I recommend to continue the current medications. Continue symptomatic treatment. Otherwise, I would also recommend ERSD and CRP. Closely follow with Dr. Micheal Adamson in the outpatient setting. Resume the home medications. See orders for details. Further recommendations to follow. MTDD
== END 2017-06-28 16:30 | disposition home or self-care (01) ==
LOC: EC 01:19 → 3OBS 05:24
PROVIDERS: ADMIT Hospitalist; ATTEND Hospitalist
DX: R10.31 Right lower quadrant pain (principal); R07.1 Chest pain on breathing; Z90.89 Acquired absence of other organs; I10 Essential (primary) hypertension; E11.9 Type 2 diabetes mellitus without complications; M19.90 Unspecified osteoarthritis, unspecified site; I25.119 Atherosclerotic heart disease of native coronary artery with unspecified angina pectoris; E07.9 Disorder of thyroid, unspecified; Z94.81 Bone marrow transplant status; K21.9 Gastro-esophageal reflux disease without esophagitis; F32.9 Major depressive disorder, single episode, unspecified; N40.0 Benign prostatic hyperplasia without lower urinary tract symptoms; Z95.5 Presence of coronary angioplasty implant and graft; Z79.84 Long term (current) use of oral hypoglycemic drugs; Z79.82 Long term (current) use of aspirin; Z79.899 Other long term (current) drug therapy; Z86.718 Personal history of other venous thrombosis and embolism; I25.2 Old myocardial infarction; Z85.830 Personal history of malignant neoplasm of bone; Z82.49 Family history of ischemic heart disease and other diseases of the circulatory system; Z87.19 Personal history of other diseases of the digestive system
CPT/HCPCS: 99285; 96374; 36415; 93005; 80053; 85652; 82150; 82550; 82553; 83690; 84484; 85025; 86140; 81003; 71010; 74000; 74177; 96361 ×4; G0378; J1170; Q9967

== ENCOUNTER → 2017-09-10 | Outpatient (CLI) | payer MEDICARE, OTHER ==
--- NOTE | 2017-09-10 15:22 | MR ---
EXAMINATION TYPE: MR lumbar spine wo/w con DATE OF EXAM: 09/10/2017 2:38 PM COMPARISON: NONE HISTORY: Lumbar Radiculopathy CONTRAST: The patient was injected with 9.5 mL intravenous Gadavist gadolinium contrast. Multiplanar, MultiSpin echo imaging of the lumbar spine was performed. L1-L2: Normal disc appearance without desiccation. No herniation, protrusion or disc bulging. No ca nal stenosis is present. Foramina are patent bilaterally. L2-L3: Normal disc appearance without desiccation. No herniation, protrusion or disc bulging. No ca nal stenosis is present. Foramina are patent bilaterally. L3-L4: Borderline decreased signal and loss of height compatible degenerative disc disease. Minimal p osterior central disc bulge effaces the ventral thecal sac. No evidence for herniation protrusion or central stenosis. Foramina are patent bilaterally. L4-L5: Mild disc desiccation. Mild circumferential disc bulge greatest posteriorly with mild effaceme nt of the ventral thecal sac. No evidence for lateral recess stenosis or central stenosis. No disc he rniation. Mild facet joint arthropathy with bilateral foraminal encroachment right greater than left. L5-S1: Mild to moderate disc desiccation. Right paracentral disc protrusion results in mild right lat eral recess stenosis. No evidence for central stenosis. Mild right foraminal encroachment. Lumbar segments are intact. No paraspinal masses are identified. Conus medullaris has a normal appe arance. No pathologic enhancement. IMPRESSION: 1. Multilevel degenerative disc disease. 2. Small right paracentral disc protrusion at L5-S1 resulting in mild right lateral recess stenosis a nd foraminal encroachment.
== END | disposition home or self-care (01) ==
LOC: RADMRIMAIN 12:33
PROVIDERS: ATTEND Psychiatry & Neurology Neurology
DX: M51.17 Intervertebral disc disorders with radiculopathy, lumbosacral region (principal); M48.07 Spinal stenosis, lumbosacral region
CPT/HCPCS: 82565; 72158; A9581

== ENCOUNTER 2017-12-21 09:34 | Emergency (ER) | payer MEDICARE, OTHER ==
[2017-12-21 09:39] VITALS: RESP 16
--- NOTE | 2017-12-21 10:00 | ED ---
General Adult HPI - General Chief complaint: Fall Stated complaint: Fall Time Seen by Provider: 12/21/17 09:48 Source: patient, RN notes reviewed Mode of arrival: ambulatory Limitations: no limitations - History of Present Illness Initial comments: Patient is a 72-year-old male who presents emergency room today with a chief complaint of a slip and fall occurred 2 days ago. Patient does admit that he was in his driveway slipped on the ice falling down onto the left knee. Patient states that he went to get up and fell down slipping onto the left hip. He states he went to get up a third time and fell backwards landing on his buttock and lower back. He states he did not hit his head on any of these falls. He did not lose consciousness. He does admit that the pain is worse in his lower back. He states feels a burning type sensation in the left hip area and admits to some mild pain to the left knee. He states all these areas are worse with movements. He denies any other complaints or associated symptoms. Denies any bowel or bladder incontinence retention. Denies any saddle anesthesia. Denies any lumbar radiculopathy. Patient denies any recent fever, chills, shortness of breath, chest pain, abdominal pain, nausea or vomiting, numbness or tingling, dysuria or hematuria, constipation or diarrhea, headaches or visual changes, or any other complaints. - Related Data Home Medications Medication Instructions Recorded Confirmed Dicyclomine HCl 20 mg PO HS 05/24/14 12/21/17 Levothyroxine Sodium [Synthroid] 100 mcg PO DAILY 05/24/14 12/21/17 Omeprazole 40 mg PO DAILY 05/24/14 12/21/17 metFORMIN HCL 1,000 mg PO BID 05/24/14 12/21/17 Nortriptyline [Pamelor] 25 mg PO HS 02/23/15 12/21/17 Acyclovir 400 mg PO BID 10/11/16 12/21/17 Metoprolol Succinate (ER) [Toprol 100 mg PO DAILY 10/11/16 12/21/17 XL] Tamsulosin [Flomax] 0.4 mg PO HS 10/11/16 12/21/17 amLODIPine [Norvasc] 5 mg PO DAILY 10/11/16 12/21/17 Aspirin EC [Ecotrin Low Dose] 81 mg PO HS 12/26/16 12/21/17 Ondansetron [Zofran] 4 mg PO Q8H PRN 05/29/17 12/21/17 Magnesium 133mg 133 mg PO DAILY 06/28/17 12/21/17 Tacrolimus [Prograf] 1 mg PO Q48H 06/28/17 12/21/17 LORazepam [Ativan] 0.5 mg PO DAILY PRN 10/13/17 12/21/17 Previous Rx's Medication Instructions Recorded Acetaminophen-Codeine 300-30mg 1 each PO Q6H PRN #15 tablet 12/21/17 [Tylenol #3] Allergies Allergy/AdvReac Type Severity Reaction Status Date / Time No Known Allergies Allergy Verified 12/21/17 10:53 Review of Systems ROS Statement: Those systems with pertinent positive or pertinent negative responses have been documented in the HPI. ROS Other: All systems not noted in ROS Statement are negative. Past Medical History Past Medical History: Coronary Artery Disease (CAD), Cancer, Chest Pain / Angina , Diabetes Mellitus, Deep Vein Thrombosis (DVT), GERD/Reflux, GI Bleed, Hypertension, Myocardial Infarction ([place]), Osteoarthritis (OA), Prostate Disorder , Renal Disease, Thyroid Disorder Additional Past Medical History / Comment(s): having abdominal pain and rectal bleeding,2014 diagnosed with bone cancer after found to have cancerous tumor on his back-removed and pt had chemo, 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 [facility], chronic intermittedt R lower abdominal pain with etiology unknown, NIDDM type II , BPH, rectal bleed, diverticulosis, kidney stones, pt denies any kidney disease other than stones."CHIPPED DISC" Last Myocardial Infarction Date:: 2014 History of Any Multi-Drug Resistant Organisms: None Reported Past Surgical History: Adenoidectomy, Appendectomy, Cholecystectomy, Heart Catheterization With Stent, Hernia Repair, Orthopedic Surgery, Tonsillectomy Additional Past Surgical History / Comment(s): Bilateral carpal tunnel, bone spur removals to bilateral heels and FEET, X6 cardiac STENTS, RT KNEE BONE SPURS , CATARACTS JA with lens implants, JA INGUINAL HERNIA REPAIR AND UMBILLICAL. removal of malignant tumor from back,EGD 06-04-17, RT LEG SX FOR TORN LIGAMENT. "WAS BORN W/ OVERSIZED LIVER HAD SX TO REDUCE IT'S SIZE" Past Anesthesia/Blood Transfusion Reactions: No Reported Reaction Additional Past Anesthesia/Blood Transfusion Reaction / Comment(s): Pt states he has received blood in the past without reaction. Date of Last Stent Placement:: 2014 Past Psychological History: Depression Smoking Status: Never smoker Past Alcohol Use History: None Reported - Past Family History Father Family Medical History: Myocardial Infarction ([place]) Additional Family Medical History / Comment(s): PTBA Mother Family Medical History: CVA/TIA, Diabetes Mellitus Additional Family Medical History / Comment(s): Mother of a CVA at the age of 82 yrs. Brother(s) Family Medical History: Cancer Additional Family Medical History / Comment(s): 2 brothers have MS General Exam - General Exam Comments Initial Comments: General: The patient is awake and alert, in no distress, and does not appear acutely ill. Eye: Pupils are equal, round and reactive to light, extra-ocular movements are intact. No nystagmus. There is normal conjunctiva bilaterally. No signs of icterus. Ears, nose, mouth and throat: There are moist mucous membranes and no oral lesions. Neck: The neck is supple, there is no tenderness or JVD. Cardiovascular: There is a regular rate and rhythm. No murmur, rub or gallop is appreciated. Respiratory: Lungs are clear to auscultation, respirations are non-labored, breath sounds are equal. No wheezes, stridor, rales, or rhonchi. Musculoskeletal: Normal ROM. Patient does have normal appearance of the cervical, thoracic and lumbar spine with a suppository deformities. Patient does have tenderness from L3 to S1. Patient has paravertebral tenderness both on left right side in this area. Does have tenderness over the lateral aspect of the left hip. Negative logroll maneuver. Mild tenderness over the anterior medial aspect of the left knee. There is no swelling bruising appreciated in any areas. Strength 5/5. Sensation intact. Pulses equal bilaterally 2+. Neurological: A&O x 3. CN II-XII intact, There are no obvious motor or sensory deficits. Coordination appears grossly intact. Speech is normal. Skin: Skin is warm and dry and no rashes or lesions are noted. Psychiatric: Cooperative, appropriate mood & affect, normal judgment. Limitations: no limitations Course Vital Signs 12/21/17 09:35 Temperature 97.7 F Pulse Rate 80 Respiratory 16 Rate Blood Pressure 141/69 O2 Sat by Pulse 95 Oximetry Medical Decision Making - Medical Decision Making Patient reexamined at this time shows no signs of distress. His x-rays are negative for any acute fracture dislocation. Results were discussed with patient. Patient's been using Tylenol for pain. He states he has had a heart time sleeping at night. Patient will be given short prescription of Tylenol with codeine to use at night. Advised not to continue with Tylenol for contusions. Advised that because constipation as well. Advised follow-up family doctor for further evaluation if symptoms persist. Disposition Clinical Impression: Fall, Acute low back pain, Knee contusion, Hip pain Disposition: HOME SELF-CARE Condition: Good Instructions: Acute Low Back Pain (ED) Additional Instructions: Please follow-up the family doctor this coming week. Please discuss further evaluation and possible MRI if symptoms are not improving. Please use pain medication as discussed in the aware that it may cause constipation. Please return to emergency room symptoms increase or worsen or for new concerns. Prescriptions: Acetaminophen-Codeine 300-30mg [Tylenol #3] 1 each PO Q6H PRN #15 tablet PRN Reason: Pain Referrals: Micheal Adamson MD [Primary Care Provider] - 1-2 days Time of Disposition: 11:22
--- NOTE | 2017-12-21 10:54 | XR ---
EXAMINATION TYPE: XR Hip LT and AP Pelvis , 4 VIEWS DATE OF EXAM ORDERED: 12/21/2017 HISTORY: Pain following trauma. COMPARISON: None. FINDINGS: There is mild sclerosis of the SI joints. There are degenerative changes in the lower lumb ar spine. No acute fracture or dislocation is seen. Bony structures about the pelvis are normal. IMPRESSION: NO ACUTE OSSEOUS LESION.
--- NOTE | 2017-12-21 11:02 | XR ---
EXAMINATION TYPE: XR lumbosacral spine min 4V , 5 VIEWS DATE OF EXAM ORDERED: 12/21/2017 HISTORY: Pain secondary to trauma. COMPARISON: Previous study dated 12/16/2016. FINDINGS: There has been a previous cholecystectomy. Vertebral body height and alignment are maintained. There is no spondylolysis or spondylolisthesis. T here is hypertrophic spondylosis most marked at T11-12 and T12-L1. There is degenerative disc disease most marked at L4-5 and L5-S1. There is mild, diffuse facet arthropathy. The pedicles are intact. IMPRESSION: 1. NO ACUTE OSSEOUS LESION. 2. DEGENERATIVE CHANGE.
--- NOTE | 2017-12-21 11:03 | XR ---
EXAMINATION TYPE: XR knee complete LT , 3 VIEWS DATE OF EXAM ORDERED: 12/21/2017 HISTORY: Pain following trauma. COMPARISON: Previous study dated 05/31/2014. FINDINGS: There is peaking of intercondylar spines. There are remodeling changes in the medial paty rtment and patellofemoral joint. There is mild chondrocalcinosis. No acute osseous lesion is seen. No joint effusion is seen. IMPRESSION: MODERATE CHANGES OF OSTEOARTHRITIS.
[2017-12-21 11:31] VITALS: BP 155/77; PULSE 73; TEMP 97
== END 2017-12-21 11:30 | disposition home or self-care (01) ==
LOC: EC 09:34
DX: S80.02XA Contusion of left knee, initial encounter (principal); M54.5 Low back pain; M25.552 Pain in left hip; I25.10 Atherosclerotic heart disease of native coronary artery without angina pectoris; E11.9 Type 2 diabetes mellitus without complications; K21.9 Gastro-esophageal reflux disease without esophagitis; I10 Essential (primary) hypertension; I25.2 Old myocardial infarction; F32.9 Major depressive disorder, single episode, unspecified; E07.9 Disorder of thyroid, unspecified; Z85.830 Personal history of malignant neoplasm of bone; Z86.718 Personal history of other venous thrombosis and embolism; Z94.81 Bone marrow transplant status; Z98.890 Other specified postprocedural states; Z79.82 Long term (current) use of aspirin; Z79.84 Long term (current) use of oral hypoglycemic drugs; Z79.899 Other long term (current) drug therapy; W00.0XXA Fall on same level due to ice and snow, initial encounter; Y92.009 Unspecified place in unspecified non-institutional (private) residence as the place of occurrence of the external cause
CPT/HCPCS: 72110; 73502; 99283

== ENCOUNTER → 2018-01-05 | Outpatient (CLI) | payer MEDICARE, OTHER ==
--- NOTE | 2018-01-05 14:14 | MR ---
EXAMINATION TYPE: MR lumbar spine wo/w con DATE OF EXAM: 01/05/2018 COMPARISON: Prior MRI lumbar spine September 10, 2017. Prior lumbar spine x-ray December 21, 2017. CT a bdomen pelvis October 08, 2017 HISTORY: Low back pain per order and patient. TECHNIQUE: Multiplanar, multisequence images of the lumbar spine is performed without and with IV contrast, util izing 10 mL intravenous Gadavist FINDINGS: Sagittal images of the lumbar spine show vertebral body heights and alignment to remain sat isfactory multilevel disc desiccation is again seen but disc space heights are fairly well-maintained . No suspicious posterior disc herniations are seen on sagittal images. The conus medullaris is marielos l in position and signal ending at superior L1 level. The bone marrow signal intensity is within nor mal limits. No suspicious postcontrast enhancement is seen. There is fairly moderate multilevel anter ior spurring in the visualized lower thoracic spine. Axial images show the T12-L1, L1-L2, and L2-L3 levels all to remain within normal limits. Axial images at L3-L4 level redemonstrate mild facet degenerative changes bilaterally and stable mild broad disc bulge minimally effacing anterior thecal sac. Bilateral neural foramina are patent. No si gnificant change from prior studies. Axial images at L4-L5 level show moderate facet degenerative changes bilaterally. There is broad-base d posterior disc protrusion mildly effacing anterior thecal sac. There is mild right greater than lef t bilateral anterior inferior neural foraminal narrowing redemonstrated. Axial images at L5-S1 level redemonstrate mild to moderate facet degenerative changes bilaterally. Th ere is central disc protrusion seen but spinal canal is preserved. Bilateral neural foramina are burris nt. A few simple appearing parapelvic cysts in the left kidney are redemonstrated. IMPRESSION: Some multilevel degenerative changes in the mid to lower lumbar spine as detailed above. No significant change or progression from prior MRI.
== END | disposition home or self-care (01) ==
LOC: RADMRIMAIN 12:44
PROVIDERS: ATTEND Physician Assistant
DX: M47.816 Spondylosis without myelopathy or radiculopathy, lumbar region (principal)
CPT/HCPCS: 82565; 72158; 36415; A9581

== ENCOUNTER 2018-01-26 12:55 | Observation (INO) | payer MEDICARE, OTHER ==
[2018-01-26] MEDS ORDERED: NITROGLYCERIN OINT 1 INCH/GM PACKET TOPICAL STA (13:49)
[2018-01-26] MEDS ORDERED: KETOROLAC 30 MG/ML 1 ML VIAL IVP STA (13:49)
[2018-01-26] MEDS ORDERED: ONDANSETRON 4 MG/2 ML VIAL IVP STA (13:49)
[2018-01-26] MEDS ORDERED: ASPIRIN 81 MG PO STA (13:49)
[2018-01-26] MEDS ORDERED: RX INFO: IV CONTRAST WAS GIVEN 1 EACH MISC MISCELLANE PRN (13:51)
--- NOTE | 2018-01-26 13:56 | ED ---
Chest Pain HPI - General Chief Complaint: Chest Pain Stated Complaint: chest pain Time Seen by Provider: 01/26/18 13:37 Source: patient Mode of arrival: EMS Limitations: no limitations - History of Present Illness Initial Comments: This 72-year-old male presents with a complaint of some chest pain. He states that it occurred approximately 2 hours ago to his left lower sternum. It occurred while he is watching TV. It seemed to then developed into a diffuse abdominal pain and also some right neck pain. He states that he's been having some diarrhea. He had some dry heaving earlier as well. He has pain with any movement of his neck. He does relate a significant cardiac history of having 7 previous stents. He is unsure of his last stress test but did have a heart catheterization one month ago which apparently did not show any significant blockage and he did not require a stent at that time. He denies any leg pain or swelling or history of DVT or PE. No other complaints or modifying factors. He resents by EMS and apparently did have some sublingual nitroglycerin with resolution of his chest pain. - Related Data Home Medications Medication Instructions Recorded Confirmed Dicyclomine HCl 20 mg PO HS 05/24/14 01/26/18 Levothyroxine Sodium [Synthroid] 100 mcg PO DAILY 05/24/14 01/26/18 Omeprazole 40 mg PO DAILY 05/24/14 01/26/18 metFORMIN HCL 1,000 mg PO BID 05/24/14 01/26/18 Nortriptyline [Pamelor] 25 mg PO HS 02/23/15 01/26/18 Acyclovir 400 mg PO BID 10/11/16 01/26/18 Metoprolol Succinate (ER) [Toprol 100 mg PO DAILY 10/11/16 01/26/18 XL] Tamsulosin [Flomax] 0.4 mg PO HS 10/11/16 01/26/18 amLODIPine [Norvasc] 5 mg PO DAILY 10/11/16 01/26/18 Aspirin EC [Ecotrin Low Dose] 81 mg PO HS 12/26/16 01/26/18 Tacrolimus [Prograf] 1 mg PO Q48H 06/28/17 01/26/18 Gabapentin [Neurontin] 100 mg PO HS 01/26/18 01/26/18 Isosorbide Mononitrate ER [Imdur] 30 mg PO DAILY 01/26/18 01/26/18 clonazePAM [KlonoPIN] 0.5 mg PO DAILY PRN 01/26/18 01/26/18 Allergies Allergy/AdvReac Type Severity Reaction Status Date / Time No Known Allergies Allergy Verified 01/26/18 14:09 Review of Systems ROS Statement: Those systems with pertinent positive or pertinent negative responses have been documented in the HPI. ROS Other: All systems not noted in ROS Statement are negative. 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"CHIPPED DISC" Last Myocardial Infarction Date:: 2014 History of Any Multi-Drug Resistant Organisms: None Reported Past Surgical History: Adenoidectomy, Appendectomy, Cholecystectomy, Heart Catheterization With Stent, Hernia Repair, Orthopedic Surgery, Tonsillectomy Additional Past Surgical History / Comment(s): Bilateral carpal tunnel, bone spur removals to bilateral heels and FEET, X6 cardiac STENTS, RT KNEE BONE SPURS , CATARACTS JA with lens implants, JA INGUINAL HERNIA REPAIR AND UMBILLICAL. removal of malignant tumor from back,EGD 06-04-17, RT LEG SX FOR TORN LIGAMENT. "WAS BORN W/ OVERSIZED LIVER HAD SX TO REDUCE IT'S SIZE" Past Anesthesia/Blood Transfusion Reactions: No Reported Reaction Additional Past Anesthesia/Blood Transfusion Reaction / Comment(s): Pt states he has received blood in the past without reaction. Date of Last Stent Placement:: 2014 Past Psychological History: Depression Smoking Status: Never smoker Past Alcohol Use History: None Reported - Past Family History Father Family Medical History: Myocardial Infarction ([place]) Additional Family Medical History / Comment(s): PTBA Mother Family Medical History: CVA/TIA, Diabetes Mellitus Additional Family Medical History / Comment(s): Mother of a CVA at the age of 82 yrs. Brother(s) Family Medical History: Cancer Additional Family Medical History / Comment(s): 2 brothers have MS General Exam - General Exam Comments Initial Comments: GENERAL: The patient is well nourished and well hydrated. VITAL SIGNS: Heart rate, blood pressure, respiratory rate reviewed as recorded in nurse's notes. EYES: Pupils are round and reactive. Extraocular movements are intact. No conjunctival / lid redness or swelling. ENT: No external evidence of injury, swelling, or ecchymosis. Airway is patent. Throat is clear. NECK: There is some mild tenderness present to the right paracervical musculature worse with movement. No swelling or evidence of injury. No subcutaneous emphysema. Trachea is midline. No thyroid mass. HEART: Regular rate and rhythm. Good peripheral pulses. LUNGS/CHEST: Breath sounds clear and equal bilaterally. No rales, rhonchi, or wheezes. No ecchymosis, subcutaneous emphysema, or tenderness. ABDOMEN: There is tenderness diffusely throughout the abdomen. This is somewhat worse to the lower abdomen. No palpable masses or organomegaly. No peritoneal signs. No abdominal wall swelling or ecchymosis. EXTREMITIES: No extremity tenderness. Normal muscle tone and function. No thoracolumbar tenderness. NEUROLOGIC: Sensation is grossly intact. Cranial nerve exam reveals face is symmetrical, tongue is midline, speech is clear. SKIN: No abrasions or ecchymosis is noted. No induration or masses noted. PSYCHIATRIC: Alert and oriented. Appropriate behavior and judgment. Limitations: no limitations Course Vital Signs 01/26/18 01/26/18 13:14 15:31 Temperature 97.7 F Pulse Rate 87 82 Respiratory 18 16 Rate Blood Pressure 160/74 177/82 O2 Sat by Pulse 97 98 Oximetry Chest Pain MDM - MDM The patient was seen and examined. All diagnostics were reviewed. The patient had an EKG which shows a normal sinus rhythm at a rate of 82. There is no acute ST T-wave changes noted. The MO intervals 158, the QRS duration is 94, and the QTC intervals 450. An IV is established and he does receive some Nitropaste was an aspirin. He also receives Toradol for his neck pain. She is feeling somewhat improved on recheck. The patient had a x-ray of the chest which did not show any acute processes. The computed tomography scan of the abdomen and pelvis did not show any acute process as well but does have some nonspecific findings, please see report. The laboratory is all essentially within normal limits except for her hypomagnesemia. It is felt as though he would require admission to the hospital to rule out the possibility of acute coronary syndrome. The exact cause of his abdominal pain also is undetermined. He is agreeable to admission. Case will be discussed with internal medicine shortly. Disposition Clinical Impression: Chest pain, Unstable angina, Abdominal pain, Hypertension, Neck pain on right side, Hypomagnesemia Disposition: ADMITTED IP TO THIS HOSP Condition: Fair Time of Disposition: 16:22 Decision Date: 01/26/18 Decision Time: 16:22
[2018-01-26 14:31] LABS: Basophils % (A) 0 %; Eosinophils # (A) 0.1 k/uL (0-0.7); Eosinophils % (A) 2 %; HCT 38.4 % (39.0-53.0); HGB 12.5 gm/dL (13.0-17.5); Lymphocytes # (A) 1.2 k/uL (1.0-4.8); Lymphocytes % (A) 20 %; MCH 28.9 pg (25.0-35.0); MCHC 32.6 g/dL (31.0-37.0); MCV 88.8 fL (80.0-100.0); Mean Platelet Volume 7.8; Monocytes # (A) 0.4 k/uL (0-1.0); Monocytes % (A) 7 %; Neutrophils % (A) 69 %; Platelet Count 131 k/uL (150-450); RBC 4.32 m/uL (4.30-5.90); RDW 13.8 % (11.5-15.5); WBC 5.8 k/uL (3.8-10.6)
[2018-01-26 14:36] LABS: INR 1.1 (<1.2); Partial Thromboplastin Time 24.7 sec (22.0-30.0)
[2018-01-26 14:42] LABS: Calcium 8.9 mg/dL (8.4-10.2); Magnesium 1.4 mg/dL (1.6-2.3); Potassium 4.2 mmol/L (3.5-5.1); Total Bilirubin 0.4 mg/dL (0.2-1.3); Total Protein 6.7 g/dL (6.3-8.2)
--- NOTE | 2018-01-26 14:48 | XR ---
EXAMINATION TYPE: XR chest 2V DATE OF EXAM: 01/26/2018 COMPARISON: Chest x-ray October 13, 2017. HISTORY: History of 7 stents with chest pain. TECHNIQUE: Frontal and lateral views of the chest are obtained. FINDINGS: There is no focal air space opacity, pleural effusion, or pneumothorax seen. The cardiac silhouette size is within normal limits. Coronary stents are appreciated on lateral view. There is mu ltilevel spurring in the spine redemonstrated. IMPRESSION: No acute cardiopulmonary process. No significant change from prior.
[2018-01-26 14:55] LABS: Creatine Kinase 108 U/L (55-170)
[2018-01-26 15:07] LABS: Creatine Kinase MB 1.6 ng/mL (0.0-2.4); Troponin I <0.012 ng/mL (0.000-0.034)
--- NOTE | 2018-01-26 15:31 | CT ---
EXAMINATION TYPE: CT abdomen pelvis w con DATE OF EXAM: 01/26/2018 COMPARISON: 10/08/2017 HISTORY: Generalized body pain CT DLP: 1652 mGycm Automated exposure control for dose reduction was used. CONTRAST: CT scan of the abdomen pelvis is performed with IV Contrast, patient injected with 80 mL of Isovue 30 0. FINDINGS- LUNG BASES- No significant abnormality is appreciated. There is dense coronary artery calcification. LIVER/GB-postcholecystectomy changes noted. There is intrahepatic biliary ductal dilation likely post cholecystectomy... PANCREAS- No gross abnormality is seen. SPLEEN- No gross abnormality is seen. ADRENALS- No gross abnormality is seen. KIDNEYS/BLADDER-indeterminate hypodense lesions measuring less than a centimeter within both kidneys. . BOWEL-bowel gas pattern nonspecific. There is a small hiatal hernia. Appendix not visualized.. LYMPH NODES- No greater than 1cm abdominal or pelvic lymph nodes areappreciated. OSSEOUS STRUCTURES-degenerative changes spine with facet arthropathy noted. Arthropathy of the hips n oted. Some sclerosis involving the left SI joint is stable with spurring.. OTHER- prostate is enlarged. Atherosclerotic change of the vasculature noted. Aorta of normal calibe r. IMPRESSION- 1. Nonspecific abdomen. See above.
[2018-01-26 15:50] LABS: Appearance,Urine Clear (Clear); Bilirubin,Urine Negative (Negative); Blood,Urine Negative (Negative); Color,Urine Yellow; Glucose,Urine (UA) Negative (Negative); Ketones,Urine Negative (Negative); Leukocyte Esterase,Urine Negative (Negative); Nitrite,Urine Negative (Negative); PH, Urine 5.5 (5.0-8.0); Protein,Urine Negative (Negative); Specific Gravity,Urine 1.032 (1.001-1.035); Urobilinogen,Urine <2.0 mg/dL (<2.0)
[2018-01-26] MEDS ORDERED: MAG HYDROX/AL HYDROX/SIMETH 30 ML, HYOSCYAMINE ELIXIR 10 ML, CIMETIDINE HCL 300 MG, LID... PO STA ×4 (16:22)
[2018-01-26] MEDS ORDERED: NALOXONE 0.4 MG/ML 1 ML VIAL IV PRN (16:23)
[2018-01-26] MEDS ORDERED: ACETAMINOPHEN TAB 325 MG TAB PO PRN (16:23)
[2018-01-26] MEDS ORDERED: PANTOPRAZOLE 40 MG/10 ML VIAL IVP STA (16:23)
[2018-01-26] MEDS ORDERED: ONDANSETRON 4 MG/2 ML VIAL IVP PRN (16:23)
[2018-01-26] MEDS ORDERED: clonazePAM 0.5 MG TAB PO PRN (16:26)
[2018-01-26] MEDS: MAGNESIUM SULFATE-D5W PMX 1 GM in DEXTROSE/WATER 1 100ML.BAG IVPB SCH ×2 (17:09→20:31)
[2018-01-26 17:46] LABS: Glucose,Whole Blood 114 mg/dL (75-99)
[2018-01-26] MEDS: INSULIN ASPART 100 UNIT/ML 1 ML 10 ML VIAL SQ SCH ×2 (18:13→23:52)
[2018-01-26] MEDS: NITROGLYCERIN OINT 1 INCH/GM PACKET TOPICAL SCH ×2 (18:14→23:54)
[2018-01-26] MEDS: ACYCLOVIR 200 MG CAP PO SCH (19:50)
[2018-01-26 20:15] LABS: Creatine Kinase 106 U/L (55-170)
[2018-01-26 20:27] LABS: Creatine Kinase MB 1.4 ng/mL (0.0-2.4); Troponin I <0.012 ng/mL (0.000-0.034)
[2018-01-26 20:29] LABS: Glucose,Whole Blood 112 mg/dL (75-99)
[2018-01-26] MEDS: traMADol 50 MG TAB PO PRN (20:39)
[2018-01-26] MEDS ORDERED: DICYCLOMINE 20 MG TAB PO SCH (21:00)
[2018-01-26] MEDS ORDERED: NORTRIPTYLINE 25 MG CAP PO SCH (21:00)
[2018-01-26] MEDS ORDERED: GABAPENTIN 100 MG CAP PO SCH (21:00)
[2018-01-26] MEDS ORDERED: ASPIRIN 81 MG PO SCH (21:00)
[2018-01-26] MEDS ORDERED: TAMSULOSIN 0.4 MG CAP.ER.24H PO SCH (21:00)
[2018-01-27 01:18] LABS: Creatine Kinase 100 U/L (55-170)
[2018-01-27 01:29] LABS: Creatine Kinase MB 1.4 ng/mL (0.0-2.4)
[2018-01-27 01:32] LABS: Troponin I <0.012 ng/mL (0.000-0.034)
[2018-01-27 01:49] LABS: Hemoglobin A1C 5.8 % (4.0-6.0)
[2018-01-27] MEDS ORDERED: LEVOTHYROXINE 100 MCG TAB PO SCH (06:30)
[2018-01-27 07:01] LABS: Glucose,Whole Blood 91 mg/dL (75-99)
[2018-01-27] MEDS: traMADol 50 MG TAB PO PRN ×2 (07:10→14:48)
[2018-01-27 07:56] VITALS: RESP 18
[2018-01-27] MEDS: INSULIN ASPART 100 UNIT/ML 1 ML 10 ML VIAL SQ SCH ×2 (08:47→12:29)
[2018-01-27] MEDS ORDERED: ENOXAPARIN 40 MG/0.4 ML SYRINGE SQ SCH (09:00)
[2018-01-27] MEDS ORDERED: PANTOPRAZOLE 40 MG/10 ML VIAL IV SCH (09:00)
[2018-01-27] MEDS ORDERED: TACROLIMUS 1 MG CAP PO SCH (09:00)
[2018-01-27] MEDS ORDERED: METOPROLOL SUCCINATE (ER) 100 MG TAB.ER.24H PO SCH (09:00)
[2018-01-27] MEDS ORDERED: amLODIPine 5 MG TAB PO SCH (09:00)
[2018-01-27] MEDS: ACYCLOVIR 200 MG CAP PO SCH (09:03)
--- NOTE | 2018-01-27 10:11 | P.CRDCN ---
History of Present Illness Consult date: 01/27/18 History of present illness: Mr. Ling is a pleasant 72-year-old male past medical history significant for coronary artery disease with 7 stents most recent stent approximately [address] Hui out of [facility], diabetes mellitus, hypertension, chronic kidney disease, diverticulitis, GI bleeding, bone marrow transplant 2016 and hypothyroidism. We have been asked to see him in consultation for chest pain. He states starting yesterday morning he felt a pain in his lower abdomen/pelvic region while sitting in his chair. He then started having diarrhea, nausea and shortness of breath. The pain radiated up into his mid abdominal region as well. Later in the day he noticed a pain in his right neck that was reproducible and worse with movement of his head from side to side. He denies symptoms of chest pain, dizziness, palpitations, diaphoresis or vomiting. He states he had a catheterization done with Dr. Hui that was unremarkable 2 years ago. He had a CT of abd/pelvis in ED that was unremarkable. He states he does have a history of diverticulitis but this doesn't feel similar to how he has felt in the past with an exacerbation. He also states this doesn't feel similar to heart attacks he has had in the past either. EKG on arrival reveals sinus mechanism with no acute ST or T-wave abnormalities. Telemetry tracings have been unremarkable. Chest xray is negative for an acute cardiopulmonary process. Laboratory data reviewed, cardiac enzymes negative 3, hemoglobin 12.5, platelets 131, potassium 4.2, magnesium 1.4 on admission was replaced and repeat this morning 2.0, creatinine 1.27 with GFR 57. Current cardiac medications include Toprol 100 mg daily, Norvasc 5 mg daily, Imdur 30 mg daily, aspirin 81 mg daily. Most recent echocardiogram performed October 2017 reveals preserved left ventricular systolic function with ejection fraction 50-55%, mild aortic stenosis with a peak/mean gradient 20.12/10.96 mmHg, mild MR, mild TR. Review of Systems At the time of my exam: CONSTITUTIONAL: Denies fever. Denies chills. EYES: Denies blurred vision. Denies vision changes. Denies eye pain. EARS, NOSE, MOUTH & THROAT: Denies headache. Denies sore throat. Denies ear pain. CARDIOVASCULAR: Denies chest pain. Denies shortness of breath. Denies orthopnea. Denies PND. Denies palpitations. RESPIRATORY: Denies cough. GASTROINTESTINAL: Complains of lower abdominal pain. Denies diarrhea. Denies constipation. Denies nausea. Denies vomiting. MUSCULOSKELETAL: Complains of neck pain with movement. INTEGUMENTARY: Denies pruitis. Denies rash. NEUROLOGIC: Denies numbness. Denies tingling. Denies weakness. PSYCHIATRIC: Denies anxiety. Denies depression. ENDOCRINE: Denies fatigue. Denies weight change. Denies polydipsia. Denies polyurina. GENITOURINARY: Denies burning, hematuria or urgency with micturation. HEMATOLOGIC: Denies history of anemia. Denies bleeding. 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 [facility], chronic intermittedt R lower abdominal pain with etiology unknown, NIDDM type II , BPH, rectal bleed, diverticulosis, kidney stones, pt denies any kidney disease other than stones."CHIPPED DISC" d/t faLL IN NOVEMBER Last Myocardial Infarction Date:: 2014 History of Any Multi-Drug Resistant Organisms: None Reported Past Surgical History: Adenoidectomy, Appendectomy, Cholecystectomy, Heart Catheterization With Stent, Hernia Repair, Orthopedic Surgery, Tonsillectomy Additional Past Surgical History / Comment(s): Bilateral carpal tunnel, bone spur removals to bilateral heels and FEET, X6 cardiac STENTS, RT KNEE BONE SPURS , CATARACTS JA with lens implants, JA INGUINAL HERNIA REPAIR AND UMBILLICAL. removal of malignant tumor from back,EGD 06-04-17, RT LEG SX FOR TORN LIGAMENT. "WAS BORN W/ OVERSIZED LIVER HAD SX TO REDUCE IT'S SIZE" Past Anesthesia/Blood Transfusion Reactions: No Reported Reaction Additional Past Anesthesia/Blood Transfusion Reaction / Comment(s): Pt states he has received blood in the past without reaction. Date of Last Stent Placement:: 2014 Smoking Status: Never smoker - Past Family History Father Family Medical History: Myocardial Infarction ([place]) Additional Family Medical History / Comment(s): PTBA Mother Family Medical History: CVA/TIA, Diabetes Mellitus Additional Family Medical History / Comment(s): Mother of a CVA at the age of 82 yrs. Brother(s) Family Medical History: Cancer Additional Family Medical History / Comment(s): 2 brothers have MS Medications and Allergies Home Medications Medication Instructions Recorded Confirmed Type Dicyclomine HCl 20 mg PO HS 05/24/14 01/26/18 History Levothyroxine Sodium [Synthroid] 100 mcg PO DAILY 05/24/14 01/26/18 History Omeprazole 40 mg PO DAILY 05/24/14 01/26/18 History metFORMIN HCL 1,000 mg PO BID 05/24/14 01/26/18 History Nortriptyline [Pamelor] 25 mg PO HS 02/23/15 01/26/18 History Acyclovir 400 mg PO BID 10/11/16 01/26/18 History Metoprolol Succinate (ER) [Toprol 100 mg PO DAILY 10/11/16 01/26/18 History XL] Tamsulosin [Flomax] 0.4 mg PO HS 10/11/16 01/26/18 History amLODIPine [Norvasc] 5 mg PO DAILY 10/11/16 01/26/18 History Aspirin EC [Ecotrin Low Dose] 81 mg PO HS 12/26/16 01/26/18 History Tacrolimus [Prograf] 1 mg PO Q48H 06/28/17 01/26/18 History Gabapentin [Neurontin] 100 mg PO HS 01/26/18 01/26/18 History Isosorbide Mononitrate ER [Imdur] 30 mg PO DAILY 01/26/18 01/26/18 History clonazePAM [KlonoPIN] 0.5 mg PO DAILY PRN 01/26/18 01/26/18 History Allergies Allergy/AdvReac Type Severity Reaction Status Date / Time No Known Allergies Allergy Verified 01/26/18 14:09 Physical Exam Vitals: Vital Signs Temp Pulse Pulse Resp BP BP Pulse Ox 01/27/18 03:33 97.6 F 63 16 148/74 98 01/27/18 03:20 70 16 01/26/18 23:54 64 16 01/26/18 23:52 97.6 F 70 16 132/68 98 01/26/18 20:00 71 16 01/26/18 19:41 97.8 F 79 16 172/85 98 01/26/18 18:07 72 17 01/26/18 17:44 97.7 F 72 17 178/82 98 01/26/18 17:11 97 F L 81 18 155/82 97 01/26/18 16:04 80 150/76 99 01/26/18 15:31 82 16 177/82 98 01/26/18 14:47 80 155/78 99 01/26/18 13:14 97.7 F 87 18 160/74 97 Intake and Output 01/26/18 01/27/18 01/27/18 22:59 06:59 14:59 Intake Total 240 Balance 240 Intake: Oral 240 Other: Voiding Method Toilet Toilet # Voids 2 Weight 103.1 kg Blood pressure 148/72 heart rate 65 afebrile maintaining oxygen saturation on room air GENERAL: This is a 72-year-old male in no apparent distress at the time of my examination. HEENT: Head is atraumatic, normocephalic. Pupils are equal, round. Sclerae anicteric. Conjunctivae are clear. Mucous membranes of the mouth are moist. Neck is supple. There is no jugular venous distention. No carotid bruit is heard. LUNGS: Clear to auscultation no wheezes, rales or rhonchi. No chest wall tenderness is noted on palpation or with deep breathing. HEART: Regular rate and rhythm with systolic ejection murmur at the base, no rubs or gallops. S1 and S2 heard. ABDOMEN: Soft, nontender. Bowel sounds are heard. No organomegaly noted. EXTREMITIES: No evidence of peripheral edema and no calf tenderness noted. VASCULAR: Radial and dorsalis pedis pulses palpated, no evidence of clubbing. NEUROLOGIC: Patient is awake, alert and oriented x3. Results 01/26/18 13:10 01/26/18 13:10 Cardiac Enzymes 01/26/18 01/26/18 01/26/18 Range/Units 13:10 13:10 19:36 AST 23 (17-59) U/L CK-MB (CK-2) 1.6 1.4 (0.0-2.4) ng/mL Troponin I <0.012 <0.012 (0.000-0.034) ng/mL 01/27/18 Range/Units 00:27 AST (17-59) U/L CK-MB (CK-2) 1.4 (0.0-2.4) ng/mL Troponin I <0.012 (0.000-0.034) ng/mL Coagulation 01/26/18 Range/Units 13:10 PT 11.0 (9.0-12.0) sec APTT 24.7 (22.0-30.0) sec CBC 01/26/18 Range/Units 13:10 WBC 5.8 (3.8-10.6) k/uL RBC 4.32 (4.30-5.90) m/uL Hgb 12.5 L (13.0-17.5) gm/dL Hct 38.4 L (39.0-53.0) % Plt Count 131 L (150-450) k/uL Comprehensive Metabolic Panel 01/26/18 Range/Units 13:10 Sodium 143 (137-145) mmol/L Potassium 4.2 (3.5-5.1) mmol/L Chloride 107 (98-107) mmol/L Carbon Dioxide 23 (22-30) mmol/L BUN 20 (9-20) mg/dL Creatinine 1.27 H (0.66-1.25) mg/dL Glucose 89 (74-99) mg/dL Calcium 8.9 (8.4-10.2) mg/dL AST 23 (17-59) U/L ALT 32 (21-72) U/L Alkaline Phosphatase 79 (38-126) U/L Total Protein 6.7 (6.3-8.2) g/dL Albumin 4.0 (3.5-5.0) g/dL Current Medications Generic Name Dose Route Start Last Admin Trade Name Freq PRN Reason Stop Dose Admin Acetaminophen 650 mg 01/26/18 16:23 Tylenol Tab PO Q6HR PRN Mild Pain or Fever > 100.5 Acyclovir 400 mg 01/26/18 21:00 01/26/18 19:50 Zovirax PO 400 mg BID JULIANA Administration Amlodipine Besylate 5 mg 01/27/18 09:00 Norvasc PO DAILY JULIANA Aspirin 81 mg 01/26/18 21:00 01/26/18 19:51 Aspirin PO 81 mg HS [facility] Administration Clonazepam 0.5 mg 01/26/18 16:26 Klonopin PO DAILY PRN Anxiety Dicyclomine HCl 20 mg 01/26/18 21:00 01/26/18 19:51 Bentyl PO 20 mg HS [facility] Administration Enoxaparin Sodium 40 mg 01/27/18 09:00 Lovenox SQ DAILY [facility] Gabapentin 100 mg 01/26/18 21:00 01/26/18 19:51 Neurontin PO 100 mg HS [facility] Administration Insulin Aspart 0 unit 01/26/18 17:30 01/26/18 23:52 Novolog SQ Not Given ACHS [facility] Protocol Levothyroxine Sodium 100 mcg 01/27/18 06:30 01/27/18 06:06 Synthroid PO Not Given DAILY@0630 [facility] Metoprolol Succinate 100 mg 01/27/18 09:00 Toprol Xl PO DAILY [facility] Miscellaneous Information 1 each 01/26/18 13:51 Rx Info: Iv Contrast Was Given MISCELLANE 01/28/18 13:51 DAILY PRN Per Protocol Naloxone HCl 0.2 mg 01/26/18 16:23 Narcan IV Q2M PRN Opioid Reversal Nitroglycerin 1 inch 01/26/18 18:00 01/26/18 23:54 Nitro-Bid Oint TOPICAL Not Given QID [facility] Nortriptyline HCl 25 mg 01/26/18 21:00 01/26/18 19:51 Pamelor PO 25 mg HS [facility] Administration Ondansetron HCl 4 mg 01/26/18 16:23 Zofran IVP Q4H PRN Nausea And Vomiting Pantoprazole Sodium 40 mg 01/27/18 09:00 Protonix IV DAILY [facility] Tacrolimus 1 mg 01/27/18 09:00 Prograf PO Q48H [facility] Tamsulosin HCl 0.4 mg 01/26/18 21:00 01/26/18 19:50 Flomax PO 0.4 mg HS [facility] Administration Tramadol HCl 50 mg 01/26/18 16:23 01/27/18 07:10 Ultram PO 50 mg Q6H PRN Administration Moderate Pain Intake and Output 01/26/18 01/27/18 01/27/18 22:59 06:59 14:59 Intake Total 240 Balance 240 Intake: Oral 240 Other: Voiding Method Toilet Toilet # Voids 2 Weight 103.1 kg 01/26/18 13:10 01/26/18 13:10 Assessment and Plan Assessment: ASSESSMENT 1. Chest pain, atypical. An acute coronary event has been ruled out with negative cardiac enzymes and no EKG evidence of ischemia. 3. Hypertension 4. History of chronic stable coronary artery disease 5. Chronic kidney disease 6. Diabetes mellitus 7. Neck strain PLAN Obtain records of recent catheterization from [facility]. No cardiac work-up warranted at this time, pain is very atypical for cardiac origin. Seems more related to GI, possibly viral syndrome. Continue with norvasc, toprol, imdur and aspirin as was previously ordered. Follow-up with his primary gre tutor, Dr. Hui, upon discharge. Thank you kindly for this consultation. Nurse Practitioner note has been reviewed, I agree with a documented findings and plan of care. Patient was seen and examined.
--- NOTE | 2018-01-27 10:59 | P.HPIM ---
History of Present Illness 72-year-old male presented the emergency room with some complaints of chest pain to left lower sternum. Patient also developed some diffuse abdominal pain. With nausea and diarrhea. Patient also states he's having some increased neck pain and low back pain. Patient has a history of coronary disease with 7 stents and [place]. Patient to be evaluated by cardiology and gastroenterology Review of Systems Cardiovascular: Reports chest pain Gastrointestinal: Reports abdominal pain, Reports diarrhea, Reports nausea Past Medical History Past Medical History: Coronary Artery Disease (CAD), Cancer, Chest Pain / Angina , Diabetes Mellitus, Deep Vein Thrombosis (DVT), GERD/Reflux, GI Bleed, Hypertension, Myocardial Infarction ([place]), Osteoarthritis (OA), Prostate Disorder , Renal Disease, Thyroid Disorder Additional Past Medical History / Comment(s): having abdominal pain and rectal bleeding,2014 diagnosed with bone cancer after found to have cancerous tumor on his back-removed and pt had chemo, 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 [facility], chronic intermittedt R lower abdominal pain with etiology unknown, NIDDM type II , BPH, rectal bleed, diverticulosis, kidney stones, pt denies any kidney disease other than stones."CHIPPED DISC" d/t faLL IN NOVEMBER Last Myocardial Infarction Date:: 2014 History of Any Multi-Drug Resistant Organisms: None Reported Past Surgical History: Adenoidectomy, Appendectomy, Cholecystectomy, Heart Catheterization With Stent, Hernia Repair, Orthopedic Surgery, Tonsillectomy Additional Past Surgical History / Comment(s): Bilateral carpal tunnel, bone spur removals to bilateral heels and FEET, X6 cardiac STENTS, RT KNEE BONE SPURS , CATARACTS JA with lens implants, JA INGUINAL HERNIA REPAIR AND UMBILLICAL. removal of malignant tumor from back,EGD 06-04-17, RT LEG SX FOR TORN LIGAMENT. "WAS BORN W/ OVERSIZED LIVER HAD SX TO REDUCE IT'S SIZE" Past Anesthesia/Blood Transfusion Reactions: No Reported Reaction Additional Past Anesthesia/Blood Transfusion Reaction / Comment(s): Pt states he has received blood in the past without reaction. Date of Last Stent Placement:: 2014 Smoking Status: Never smoker - Past Family History Father Family Medical History: Myocardial Infarction ([place]) Additional Family Medical History / Comment(s): PTBA Mother Family Medical History: CVA/TIA, Diabetes Mellitus Additional Family Medical History / Comment(s): Mother of a CVA at the age of 82 yrs. Brother(s) Family Medical History: Cancer Additional Family Medical History / Comment(s): 2 brothers have MS Medications and Allergies Home Medications Medication Instructions Recorded Confirmed Type Dicyclomine HCl 20 mg PO HS 05/24/14 01/26/18 History Levothyroxine Sodium [Synthroid] 100 mcg PO DAILY 05/24/14 01/26/18 History Omeprazole 40 mg PO DAILY 05/24/14 01/26/18 History metFORMIN HCL 1,000 mg PO BID 05/24/14 01/26/18 History Nortriptyline [Pamelor] 25 mg PO HS 02/23/15 01/26/18 History Acyclovir 400 mg PO BID 10/11/16 01/26/18 History Metoprolol Succinate (ER) [Toprol 100 mg PO DAILY 10/11/16 01/26/18 History XL] Tamsulosin [Flomax] 0.4 mg PO HS 10/11/16 01/26/18 History amLODIPine [Norvasc] 5 mg PO DAILY 10/11/16 01/26/18 History Aspirin EC [Ecotrin Low Dose] 81 mg PO HS 12/26/16 01/26/18 History Tacrolimus [Prograf] 1 mg PO Q48H 06/28/17 01/26/18 History Gabapentin [Neurontin] 100 mg PO HS 01/26/18 01/26/18 History Isosorbide Mononitrate ER [Imdur] 30 mg PO DAILY 01/26/18 01/26/18 History clonazePAM [KlonoPIN] 0.5 mg PO DAILY PRN 01/26/18 01/26/18 History Allergies Allergy/AdvReac Type Severity Reaction Status Date / Time No Known Allergies Allergy Verified 01/26/18 14:09 Physical Exam Vitals: Vital Signs Temp Pulse Pulse Resp BP BP Pulse Ox 01/27/18 07:55 97.6 F 65 18 148/72 100 01/27/18 03:33 97.6 F 63 16 148/74 98 01/27/18 03:20 70 16 01/26/18 23:54 64 16 01/26/18 23:52 97.6 F 70 16 132/68 98 01/26/18 20:00 71 16 01/26/18 19:41 97.8 F 79 16 172/85 98 01/26/18 18:07 72 17 01/26/18 17:44 97.7 F 72 17 178/82 98 01/26/18 17:11 97 F L 81 18 155/82 97 01/26/18 16:04 80 150/76 99 01/26/18 15:31 82 16 177/82 98 01/26/18 14:47 80 155/78 99 01/26/18 13:14 97.7 F 87 18 160/74 97 Intake and Output 01/26/18 01/27/18 01/27/18 22:59 06:59 14:59 Intake Total 240 Balance 240 Intake: Oral 240 Other: Voiding Method Toilet Toilet # Voids 2 Weight 103.1 kg - Constitutional General appearance: mild distress, obese - EENT Eyes: PERRLA Ears: bilateral: normal - Neck Muscular tension to right-sided neck - Respiratory Respiratory: bilateral: CTA - Cardiovascular Rhythm: regular Abnormal Heart Sounds: systolic murmur - Gastrointestinal General gastrointestinal: hyperactive bowel sounds, soft Localized gastrointestinal: tender: epigastric periumbilical - Integumentary Integumentary: normal - Neurologic Neurologic: CNII-XII intact - Psychiatric Psychiatric: A&O x's 3, appropriate affect, intact judgment & insight Results CBC & Chem 7: 01/26/18 13:10 01/26/18 13:10 Labs: Abnormal Lab Results - Last 24 Hours (Table) 01/26/18 01/26/18 01/26/18 Range/Units 13:10 13:10 17:39 Hgb 12.5 L (13.0-17.5) gm/dL Hct 38.4 L (39.0-53.0) % Plt Count 131 L (150-450) k/uL Creatinine 1.27 H (0.66-1.25) mg/dL POC Glucose (mg/dL) 114 H (75-99) mg/dL Magnesium 1.4 L (1.6-2.3) mg/dL 01/26/18 Range/Units 20:23 Hgb (13.0-17.5) gm/dL Hct (39.0-53.0) % Plt Count (150-450) k/uL Creatinine (0.66-1.25) mg/dL POC Glucose (mg/dL) 112 H (75-99) mg/dL Magnesium (1.6-2.3) mg/dL Chest x-ray: report reviewed CT scan - abdomen: report reviewed Thrombosis Risk Factor Assmnt - Choose All That Apply Any of the Below Risk Factors Present?: Yes Each Factor Represents 1 point: Obesity (BMI >25) Other Risk Factors: Yes Each Risk Factor Represents 2 Points: Age 61-74 years, Malignancy Each Risk Factor Represents 3 Points: History of DVT/PE Other congenital or acquired thrombophilia - If yes, enter type in comment: No Thrombosis Risk Factor Assessment Total Risk Factor Score: 8 Thrombosis Risk Factor Assessment Level: High Risk Assessment and Plan Plan: Assessment Chest pain unstable angina history of coronary disease with 6 stents Diabetes type 2 Hypertension Abdominal pain with diarrhea and nausea Hypo-magnesium Neck and low back pain GERD Renal disease hypothyroidism History of DVT Plan Continue consultation with cardiology. Reviewing charts from previous cardiac physician Consultation with gastroenterology regarding abdominal pain
[2018-01-27] MEDS: NITROGLYCERIN OINT 1 INCH/GM PACKET TOPICAL SCH ×2 (11:05→15:56)
--- NOTE | 2018-01-27 11:39 | P.CONS ---
History of Present Illness - Reason for Consult Consult date: 01/27/18 Abdominal pain diarrhea Requesting physician: Micheal Adamson - History of Present Illness 72-year-old gentleman with a history of CAD with multiple stents, appendectomy, cholecystectomy, pancytopenia bone cancer with tumor removed from back status post chemo bone marrow transplant 2015, intermittent abdominal pain, diarrhea. She presents with acute abdominal pain chest pain diarrhea nonbloody [address] abdomen and pelvis reported no acute findings. EGD June [address] Zhang hiatal hernia superficial nonbleeding gastric ulcer. Colonoscopy February 2015 for evaluation of intermittent rectal bleeding anemia findings of normal-appearing colon with no evidence of colitis or colorectal neoplasia. Presently the patient is without diarrhea last episode was yesterday. Mild lower bilateral abdominal pain. Denies hematuria or dysuria. No emesis no fever no weight loss. Seen by cardiology no further workup planned at this time. White count 5.8. Hemoglobin 12.5. Platelet 131. Troponin less than 0.012. Lipase 64. LFTs normal. Review of Systems Constitutional: Denies fever, chills, sweats, weight gain, or loss. HEENT: Negative for migraines, blurred vision or loss, earaches, drainage, tinnitus, oral mucosal lesions, dysphagia, or odynophagia. Cardiac: History of DVT. CAD. Hypertension. [place]. Admitted with chest pain denies arrhythmia, or palpitation. Respiratory: Negative for shortness of breath, hemoptysis, cough, or sputum production. Gastrointestinal: See HPI for pertinent findings. Genitourinary: Negative for hematuria, urgency, frequency, polyuria, dysuria, or penile discharge. Musculoskeletal: Negative for muscle aches, swelling, arthritis, and arthralgias. Neurologic: Negative for stroke or TIA. Endocrine: Negative for thyroid problems. Diabetes. Hematologic: Bone cancer with bone marrow transplant 2015 Skin: Negative for rash or itching. Psychiatric: Negative history for depression and anxiety. 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 [facility], chronic intermittedt R lower abdominal pain with etiology unknown, NIDDM type II , BPH, rectal bleed, diverticulosis, kidney stones, pt denies any kidney disease other than stones."CHIPPED DISC" d/t faLL IN NOVEMBER Last Myocardial Infarction Date:: 2014 History of Any Multi-Drug Resistant Organisms: None Reported Past Surgical History: Adenoidectomy, Appendectomy, Cholecystectomy, Heart Catheterization With Stent, Hernia Repair, Orthopedic Surgery, Tonsillectomy Additional Past Surgical History / Comment(s): Bilateral carpal tunnel, bone spur removals to bilateral heels and FEET, X6 cardiac STENTS, RT KNEE BONE SPURS , CATARACTS JA with lens implants, JA INGUINAL HERNIA REPAIR AND UMBILLICAL. removal of malignant tumor from back,EGD 06-04-17, RT LEG SX FOR TORN LIGAMENT. "WAS BORN W/ OVERSIZED LIVER HAD SX TO REDUCE IT'S SIZE" Past Anesthesia/Blood Transfusion Reactions: No Reported Reaction Additional Past Anesthesia/Blood Transfusion Reaction / Comm: Pt states he has received blood in the past without reaction. Date of Last Stent Placement:: 2014 Smoking Status: Never smoker - Past Family History Father Family Medical History: Myocardial Infarction ([place]) Additional Family Medical History / Comment(s): PTBA Mother Family Medical History: CVA/TIA, Diabetes Mellitus Additional Family Medical History / Comment(s): Mother of a CVA at the age of 82 yrs. Brother(s) Family Medical History: Cancer Additional Family Medical History / Comment(s): 2 brothers have MS Medications and Allergies Home Medications Medication Instructions Recorded Confirmed Type Dicyclomine HCl 20 mg PO HS 05/24/14 01/26/18 History Levothyroxine Sodium [Synthroid] 100 mcg PO DAILY 05/24/14 01/26/18 History Omeprazole 40 mg PO DAILY 05/24/14 01/26/18 History metFORMIN HCL 1,000 mg PO BID 05/24/14 01/26/18 History Nortriptyline [Pamelor] 25 mg PO HS 02/23/15 01/26/18 History Acyclovir 400 mg PO BID 10/11/16 01/26/18 History Metoprolol Succinate (ER) [Toprol 100 mg PO DAILY 10/11/16 01/26/18 History XL] Tamsulosin [Flomax] 0.4 mg PO HS 10/11/16 01/26/18 History amLODIPine [Norvasc] 5 mg PO DAILY 10/11/16 01/26/18 History Aspirin EC [Ecotrin Low Dose] 81 mg PO HS 12/26/16 01/26/18 History Tacrolimus [Prograf] 1 mg PO Q48H 06/28/17 01/26/18 History Gabapentin [Neurontin] 100 mg PO HS 01/26/18 01/26/18 History Isosorbide Mononitrate ER [Imdur] 30 mg PO DAILY 01/26/18 01/26/18 History clonazePAM [KlonoPIN] 0.5 mg PO DAILY PRN 01/26/18 01/26/18 History Allergies Allergy/AdvReac Type Severity Reaction Status Date / Time No Known Allergies Allergy Verified 01/26/18 14:09 Physical Exam Vitals: Vital Signs Temp Pulse Pulse Resp BP BP Pulse Ox 01/27/18 08:00 65 18 01/27/18 07:55 97.6 F 65 18 148/72 100 01/27/18 03:33 97.6 F 63 16 148/74 98 01/27/18 03:20 70 16 01/26/18 23:54 64 16 01/26/18 23:52 97.6 F 70 16 132/68 98 01/26/18 20:00 71 16 01/26/18 19:41 97.8 F 79 16 172/85 98 01/26/18 18:07 72 17 01/26/18 17:44 97.7 F 72 17 178/82 98 01/26/18 17:11 97 F L 81 18 155/82 97 01/26/18 16:04 80 150/76 99 01/26/18 15:31 82 16 177/82 98 01/26/18 14:47 80 155/78 99 01/26/18 13:14 97.7 F 87 18 160/74 97 Intake and Output 01/26/18 01/27/18 01/27/18 22:59 06:59 14:59 Intake Total 240 Balance 240 Intake: Oral 240 Other: Voiding Method Toilet Toilet Toilet # Voids 2 Weight 103.1 kg General appearance: The patient is alert, oriented, in no acute distress. HET: Head is normocephalic and atraumatic. Pupils are equal and reactive. Oropharynx is clear without lesions. Neck: Supple without lymphadenopathy. Trachea midline. Heart: S1 S2. Regular rate and rhythm. Lungs: No crackles or wheezes are heard. Abdomen: Soft, mild tenderness bilateral lower abdomen, nondistended with bowel sounds. No peritoneal signs. No palpable organomegaly or masses. Extremities: Normal skin color and turgor. No cyanosis, rash, ulceration, clubbing, or edema. Radial and pedal pulses are 2/4 bilaterally. Neurological: No focal deficits. Strength and sensation are grossly intact. Results CBC & Chem 7: 01/26/18 13:10 01/26/18 13:10 Labs: Abnormal Lab Results - Last 24 Hours (Table) 01/26/18 01/26/18 01/26/18 Range/Units 13:10 13:10 17:39 Hgb 12.5 L (13.0-17.5) gm/dL Hct 38.4 L (39.0-53.0) % Plt Count 131 L (150-450) k/uL Creatinine 1.27 H (0.66-1.25) mg/dL POC Glucose (mg/dL) 114 H (75-99) mg/dL Magnesium 1.4 L (1.6-2.3) mg/dL 01/26/18 Range/Units 20:23 Hgb (13.0-17.5) gm/dL Hct (39.0-53.0) % Plt Count (150-450) k/uL Creatinine (0.66-1.25) mg/dL POC Glucose (mg/dL) 112 H (75-99) mg/dL Magnesium (1.6-2.3) mg/dL CT scan - abdomen: report reviewed (Dr. Patel) Assessment and Plan (1) Abdominal pain Narrative/Plan: 72-year-old male admitted with acute chest pain bilateral lower abdominal pain nonbloody diarrhea with history of CAD and multiple PCI stents. Etiology of abdominal pain is unclear possible gastroenteritis possible irritable bowel syndrome. CT abdomen and pelvis reported no acute findings. Diarrhea has subsided. Status: Acute Code(s): R10.9 - UNSPECIFIED ABDOMINAL PAIN SNOMED Code(s): 05015382 (2) Diarrhea Status: Acute Code(s): R19.7 - DIARRHEA, UNSPECIFIED SNOMED Code(s): 40383728 (3) Chest pain Status: Acute Code(s): R07.9 - CHEST PAIN, UNSPECIFIED SNOMED Code(s): 36286314 Plan: Recommendations: 1. Patient is tolerating cardiac diet. Discharge per medicine. Follow up in GI office after discharge if pain does not improve. Thank you for this kind referral and the opportunity to participate in the care of your patient. This consultation was discussed with Dr. Patel. The impression and plan of care have been directed as dictated.
[2018-01-27 11:46] VITALS: BP 153/80; PULSE 68; TEMP 97.9
[2018-01-27 12:07] LABS: Glucose,Whole Blood 90 mg/dL (75-99)
--- NOTE | 2018-01-28 11:35 | P.DS ---
Providers Date of admission: 01/26/18 16:23 Expected date of discharge: 01/27/18 Attending physician: Elisa Blanc Consults: 01/26/18 16:24 Consult Physician Routine Consulting Provider: Maria T Johnston Consult Reason/Comments: cp Do you want consulting provider notified?: Yes 01/27/18 10:51 Consult Physician Urgent Consulting Provider: Khari Alfonso Consult Reason/Comments: abd pain Do you want consulting provider notified?: Yes Primary care physician: Micheal Adamson Hospital Course: 72-year-old male Patient was admitted to the emergency room patient was admitted for evaluation for chest pain abdominal pain. Patient saw cardiology was cleared for acute coronary event. Patient was evaluated by gastroenterology for diffuse abdominal chronic pain. Patient was discharged home . Assessment Chest pain atypical cleared by cardiology Abdominal pain diarrhea and nausea to follow-up outpatient with gastroenterology History of coronary disease with 6 stents ID in the past GERD Hypertension History of DVT Renal disease Hypothyroidism Hypo-magnesium corrected Plan Follow-up with piece dye worker and family physician Dr. Micheal Adamson Patient Condition at Discharge: Fair Plan - Discharge Summary Discharge Rx Participant: Yes New Discharge Prescriptions: Continue metFORMIN HCL 1,000 mg PO BID Dicyclomine HCl 20 mg PO HS Levothyroxine Sodium [Synthroid] 100 mcg PO DAILY Omeprazole 40 mg PO DAILY Nortriptyline [Pamelor] 25 mg PO HS Tamsulosin [Flomax] 0.4 mg PO HS amLODIPine [Norvasc] 5 mg PO DAILY Metoprolol Succinate (ER) [Toprol XL] 100 mg PO DAILY Acyclovir 400 mg PO BID Aspirin EC [Ecotrin Low Dose] 81 mg PO HS Tacrolimus [Prograf] 1 mg PO Q48H clonazePAM [KlonoPIN] 0.5 mg PO DAILY PRN PRN Reason: Anxiety Gabapentin [Neurontin] 100 mg PO HS Isosorbide Mononitrate ER [Imdur] 30 mg PO DAILY Discharge Medication List Dicyclomine HCl 20 mg PO HS 05/24/14 [History] Levothyroxine Sodium [Synthroid] 100 mcg PO DAILY 05/24/14 [History] Omeprazole 40 mg PO DAILY 05/24/14 [History] metFORMIN HCL 1,000 mg PO BID 05/24/14 [History] Nortriptyline [Pamelor] 25 mg PO HS 02/23/15 [History] Acyclovir 400 mg PO BID 10/11/16 [History] Metoprolol Succinate (ER) [Toprol XL] 100 mg PO DAILY 10/11/16 [History] Tamsulosin [Flomax] 0.4 mg PO HS 10/11/16 [History] amLODIPine [Norvasc] 5 mg PO DAILY 10/11/16 [History] Aspirin EC [Ecotrin Low Dose] 81 mg PO HS 12/26/16 [History] Tacrolimus [Prograf] 1 mg PO Q48H 06/28/17 [History] Gabapentin [Neurontin] 100 mg PO HS 01/26/18 [History] Isosorbide Mononitrate ER [Imdur] 30 mg PO DAILY 01/26/18 [History] clonazePAM [KlonoPIN] 0.5 mg PO DAILY PRN 01/26/18 [History] Follow up Appointment(s)/Referral(s): Khari Alfonso MD [STAFF PHYSICIAN] - 1 Week Discharge Disposition: HOME SELF-CARE
== END 2018-01-27 15:55 | disposition home or self-care (01) ==
LOC: EC 12:55 → 3OBS 16:23
PROVIDERS: ADMIT Hospitalist; ATTEND Hospitalist
DX: R07.89 Other chest pain (principal); R10.30 Lower abdominal pain, unspecified; E83.42 Hypomagnesemia; R19.7 Diarrhea, unspecified; R11.0 Nausea; I25.110 Atherosclerotic heart disease of native coronary artery with unstable angina pectoris; I12.9 Hypertensive chronic kidney disease with stage 1 through stage 4 chronic kidney disease, or unspecified chronic kidney disease; N18.9 Chronic kidney disease, unspecified; N40.0 Benign prostatic hyperplasia without lower urinary tract symptoms; K21.9 Gastro-esophageal reflux disease without esophagitis; G89.29 Other chronic pain; K57.90 Diverticulosis of intestine, part unspecified, without perforation or abscess without bleeding; E03.9 Hypothyroidism, unspecified; F32.9 Major depressive disorder, single episode, unspecified; E66.9 Obesity, unspecified; Z68.30 Body mass index [BMI] 30.0-30.9, adult; M19.90 Unspecified osteoarthritis, unspecified site; E11.9 Type 2 diabetes mellitus without complications; S16.1XXA Strain of muscle, fascia and tendon at neck level, initial encounter; X58.XXXA Exposure to other specified factors, initial encounter; M54.5 Low back pain; Z94.81 Bone marrow transplant status; I25.2 Old myocardial infarction; Z79.84 Long term (current) use of oral hypoglycemic drugs; Z79.82 Long term (current) use of aspirin; Z79.899 Other long term (current) drug therapy; Z95.5 Presence of coronary angioplasty implant and graft; Z85.830 Personal history of malignant neoplasm of bone; Z87.442 Personal history of urinary calculi; Z92.21 Personal history of antineoplastic chemotherapy; Z86.718 Personal history of other venous thrombosis and embolism; Z87.11 Personal history of peptic ulcer disease; Z87.19 Personal history of other diseases of the digestive system; Z85.828 Personal history of other malignant neoplasm of skin; Z82.49 Family history of ischemic heart disease and other diseases of the circulatory system; Z82.3 Family history of stroke; Z80.9 Family history of malignant neoplasm, unspecified; Z82.0 Family history of epilepsy and other diseases of the nervous system
CPT/HCPCS: 99285 ×2; 96365 ×2; 96375 ×4; 96366; 96372; 96376; 36415; 83880; 80053; 82150; 82550 ×2; 82553 ×2; 83690; 83735 ×2; 84484 ×2; 85025; 85610; 85730; 81003; 83036; 71046; 74177; G0378 ×2; J2405; J7507; J1650; J1885; J3475; C9113 ×2; Q9967; 93005

== ENCOUNTER 2018-01-28 12:07 | Emergency (ER) | payer MEDICARE, OTHER ==
[2018-01-28 13:04] VITALS: RESP 16
[2018-01-28] MEDS ORDERED: SODIUM CHLORIDE 0.9% 1,000 ML IV STA (13:51)
[2018-01-28 14:23] LABS: Basophils % (A) 1 %; Eosinophils # (A) 0.1 k/uL (0-0.7); Eosinophils % (A) 2 %; HCT 39.6 % (39.0-53.0); HGB 12.8 gm/dL (13.0-17.5); Lymphocytes % (A) 22 %; MCH 28.8 pg (25.0-35.0); MCHC 32.3 g/dL (31.0-37.0); Mean Platelet Volume 7.7; Monocytes # (A) 0.4 k/uL (0-1.0); Monocytes % (A) 9 %; Neutrophils % (A) 65 %; Platelet Count 151 k/uL (150-450); RBC 4.45 m/uL (4.30-5.90); RDW 13.6 % (11.5-15.5); WBC 4.6 k/uL (3.8-10.6)
--- NOTE | 2018-01-28 14:34 | ED ---
General Adult HPI - General Chief complaint: Recheck/Abnormal Lab/Rx Stated complaint: Hypertensive Time Seen by Provider: 01/28/18 13:38 Source: patient, RN notes reviewed Mode of arrival: wheelchair Limitations: no limitations - History of Present Illness Initial comments: Patient 72-year-old male presents to the emergency room with a chief complaint of abdominal pain over the last 4 days. Patient does admit that he was seen here the emergency room and admitted recently discharged home. He states that he is supposed to see Dr. Alfonso for this. He states he still expressing pain or discomfort. He states it's located in the upper abdomen bruise on the left side and also the left lower quadrant. Patient states this is similar pain that is experiencing other day. He also admits that he has a history of cardiac disease has 7 stents placed was seen by cardiology and cleared. Patient states she's not had a bowel movement the last 3 days. Patient denies any other complaints or symptoms. Patient denies any recent fever, chills, shortness of breath, chest pain, back pain, vomiting, numbness or tingling, dysuria or hematuria, diarrhea, headaches or visual changes, or any other complaints. - Related Data Home Medications Medication Instructions Recorded Confirmed Dicyclomine HCl 20 mg PO HS 05/24/14 01/28/18 Levothyroxine Sodium [Synthroid] 100 mcg PO DAILY 05/24/14 01/28/18 Omeprazole 40 mg PO DAILY 05/24/14 01/28/18 metFORMIN HCL 1,000 mg PO BID 05/24/14 01/28/18 Nortriptyline [Pamelor] 25 mg PO HS 02/23/15 01/28/18 Acyclovir 400 mg PO BID 10/11/16 01/28/18 Metoprolol Succinate (ER) [Toprol 100 mg PO DAILY 10/11/16 01/28/18 XL] Tamsulosin [Flomax] 0.4 mg PO HS 10/11/16 01/28/18 amLODIPine [Norvasc] 5 mg PO DAILY 10/11/16 01/28/18 Aspirin EC [Ecotrin Low Dose] 81 mg PO HS 12/26/16 01/28/18 Tacrolimus [Prograf] 1 mg PO Q48H 06/28/17 01/28/18 Gabapentin [Neurontin] 100 mg PO HS 01/26/18 01/28/18 Isosorbide Mononitrate ER [Imdur] 30 mg PO DAILY 01/26/18 01/28/18 clonazePAM [KlonoPIN] 0.5 mg PO DAILY PRN 01/26/18 01/28/18 Previous Rx's Medication Instructions Recorded Docusate [Colace] 100 mg PO DAILY #7 capsule 01/28/18 Allergies Allergy/AdvReac Type Severity Reaction Status Date / Time No Known Allergies Allergy Verified 01/28/18 13:25 Review of Systems ROS Statement: Those systems with pertinent positive or pertinent negative responses have been documented in the HPI. ROS Other: All systems not noted in ROS Statement are negative. 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 [facility], chronic intermittedt R lower abdominal pain with etiology unknown, NIDDM type II , BPH, rectal bleed, diverticulosis, kidney stones, pt denies any kidney disease other than stones."CHIPPED DISC" d/t faLL IN NOVEMBER Last Myocardial Infarction Date:: 2014 History of Any Multi-Drug Resistant Organisms: None Reported Past Surgical History: Adenoidectomy, Appendectomy, Cholecystectomy, Heart Catheterization With Stent, Hernia Repair, Orthopedic Surgery, Tonsillectomy Additional Past Surgical History / Comment(s): Bilateral carpal tunnel, bone spur removals to bilateral heels and FEET, X6 cardiac STENTS, RT KNEE BONE SPURS , CATARACTS JA with lens implants, JA INGUINAL HERNIA REPAIR AND UMBILLICAL. removal of malignant tumor from back,EGD 06-04-17, RT LEG SX FOR TORN LIGAMENT. "WAS BORN W/ OVERSIZED LIVER HAD SX TO REDUCE IT'S SIZE" Past Anesthesia/Blood Transfusion Reactions: No Reported Reaction Additional Past Anesthesia/Blood Transfusion Reaction / Comment(s): Pt states he has received blood in the past without reaction. Date of Last Stent Placement:: 2014 Past Psychological History: Depression Smoking Status: Never smoker - Past Family History Father Family Medical History: Myocardial Infarction ([place]) Additional Family Medical History / Comment(s): PTBA Mother Family Medical History: CVA/TIA, Diabetes Mellitus Additional Family Medical History / Comment(s): Mother of a CVA at the age of 82 yrs. Brother(s) Family Medical History: Cancer Additional Family Medical History / Comment(s): 2 brothers have MS General Exam Limitations: no limitations Course Vital Signs 01/28/18 01/28/18 01/28/18 13:02 13:30 14:55 Temperature 98.9 F Pulse Rate 74 68 68 Respiratory 16 18 16 Rate Blood Pressure 173/91 174/86 177/83 O2 Sat by Pulse 98 100 100 Oximetry 01/28/18 15:34 Temperature Pulse Rate 71 Respiratory 16 Rate Blood Pressure 171/81 O2 Sat by Pulse 99 Oximetry Medical Decision Making - Medical Decision Making Case discussed in detail with attending physician Patient reexamined at this time shows no signs of distress resting comfortably. Patient feeling better at this time. Patient's abdomen soft on palpation. Patient recent admission to the hospital was reviewed. He was admitted for chest pain and had serial enzymes are negative was seen by cardiology and cleared. Patient states this pain is the same but is located in the abdomen. It is not chest pain. He does have some tenderness left side of the abdomen. His x-ray is unremarkable. Patient's labs reviewed and does show a potassium 5.8. Patient will be given Kayexalate. He states feels somewhat constipated and has not had a bowel movement in 3 days. Salt that this may cause diarrhea. Patient given a stool softener. He is advised to follow-up the labs with the family doctor over the next 2 days also on his previous his discharge instruction was supposed NASR WILL BE GIVEN THIS INFORMATION SKIN. PATIENT ADVISED RETURN IF ANY SYMPTOMS INCREASE OR WORSEN. - Lab Data Result diagrams: 01/28/18 14:10 01/28/18 14:10 Lab Results 01/28/18 01/28/18 01/28/18 Range/Units 14:10 14:10 14:10 WBC 4.6 (3.8-10.6) k/uL RBC 4.45 (4.30-5.90) m/uL Hgb 12.8 L (13.0-17.5) gm/dL Hct 39.6 (39.0-53.0) % MCV 89.0 (80.0-100.0) fL MCH 28.8 (25.0-35.0) pg MCHC 32.3 (31.0-37.0) g/dL RDW 13.6 (11.5-15.5) % Plt Count 151 (150-450) k/uL Neutrophils % 65 % Lymphocytes % 22 % Monocytes % 9 % Eosinophils % 2 % Basophils % 1 % Neutrophils # 3.0 (1.3-7.7) k/uL Lymphocytes # 1.0 (1.0-4.8) k/uL Monocytes # 0.4 (0-1.0) k/uL Eosinophils # 0.1 (0-0.7) k/uL Basophils # 0.0 (0-0.2) k/uL PT (9.0-12.0) sec INR (<1.2) APTT (22.0-30.0) sec Sodium 141 (137-145) mmol/L Potassium 5.8 H (3.5-5.1) mmol/L Chloride 105 (98-107) mmol/L Carbon Dioxide 26 (22-30) mmol/L Anion Gap 10 mmol/L BUN 22 H (9-20) mg/dL Creatinine 1.38 H (0.66-1.25) mg/dL Est GFR (CKD-EPI)AfAm 60 (>60 ml/min/1.73 sqM) Est GFR (CKD-EPI)NonAf 52 (>60 ml/min/1.73 sqM) Glucose 96 (74-99) mg/dL Plasma Lactic Acid Bassam (0.7-2.0) mmol/L Calcium 9.3 (8.4-10.2) mg/dL Magnesium 1.8 (1.6-2.3) mg/dL Total Bilirubin 0.3 (0.2-1.3) mg/dL AST 28 (17-59) U/L ALT 35 (21-72) U/L Alkaline Phosphatase 85 (38-126) U/L Total Creatine Kinase 127 (55-170) U/L CK-MB (CK-2) 2.0 (0.0-2.4) ng/mL CK-MB (CK-2) Rel Index 1.6 Troponin I <0.012 (0.000-0.034) ng/mL Total Protein 7.1 (6.3-8.2) g/dL Albumin 4.3 (3.5-5.0) g/dL 01/28/18 01/28/18 Range/Units 14:10 14:10 WBC (3.8-10.6) k/uL RBC (4.30-5.90) m/uL Hgb (13.0-17.5) gm/dL Hct (39.0-53.0) % MCV (80.0-100.0) fL MCH (25.0-35.0) pg MCHC (31.0-37.0) g/dL RDW (11.5-15.5) % Plt Count (150-450) k/uL Neutrophils % % Lymphocytes % % Monocytes % % Eosinophils % % Basophils % % Neutrophils # (1.3-7.7) k/uL Lymphocytes # (1.0-4.8) k/uL Monocytes # (0-1.0) k/uL Eosinophils # (0-0.7) k/uL Basophils # (0-0.2) k/uL PT 10.4 (9.0-12.0) sec INR 1.1 (<1.2) APTT 24.1 (22.0-30.0) sec Sodium (137-145) mmol/L Potassium (3.5-5.1) mmol/L Chloride (98-107) mmol/L Carbon Dioxide (22-30) mmol/L Anion Gap mmol/L BUN (9-20) mg/dL Creatinine (0.66-1.25) mg/dL Est GFR (CKD-EPI)AfAm (>60 ml/min/1.73 sqM) Est GFR (CKD-EPI)NonAf (>60 ml/min/1.73 sqM) Glucose (74-99) mg/dL Plasma Lactic Acid Bassam 1.0 (0.7-2.0) mmol/L Calcium (8.4-10.2) mg/dL Magnesium (1.6-2.3) mg/dL Total Bilirubin (0.2-1.3) mg/dL AST (17-59) U/L ALT (21-72) U/L Alkaline Phosphatase (38-126) U/L Total Creatine Kinase (55-170) U/L CK-MB (CK-2) (0.0-2.4) ng/mL CK-MB (CK-2) Rel Index Troponin I (0.000-0.034) ng/mL Total Protein (6.3-8.2) g/dL Albumin (3.5-5.0) g/dL Disposition Clinical Impression: Abdominal pain Disposition: HOME SELF-CARE Condition: Good Instructions: Abdominal Pain (ED) Additional Instructions: Please use medication as discussed. Please follow-up with family doctor in the next 2 days. Please return to emergency room if the symptoms increase or worsen or for any other concerns. Prescriptions: Docusate [Colace] 100 mg PO DAILY #7 capsule Referrals: Micheal Adamson MD [Primary Care Provider] - 1-2 days Time of Disposition: 15:46
[2018-01-28 14:36] LABS: INR 1.1 (<1.2); Partial Thromboplastin Time 24.1 sec (22.0-30.0); Prothrombin Time 10.4 sec (9.0-12.0)
--- NOTE | 2018-01-28 14:36 | XR ---
Abdomen HISTORY: Pain Frontal view of the abdomen on [address] scan 01/26/2018 Surgical clips are present in the right upper quadrant. Lung bases are clear. No pneumoperitoneum or bowel obstruction. Bone mineralization is within normal limits. No evident pathologic calcification. IMPRESSION: Postop changes, follow-up as indicated.
[2018-01-28 14:42] LABS: Albumin 4.3 g/dL (3.5-5.0); Calcium 9.3 mg/dL (8.4-10.2); Magnesium 1.8 mg/dL (1.6-2.3); Potassium 5.8 mmol/L (3.5-5.1); Total Bilirubin 0.3 mg/dL (0.2-1.3); Total Protein 7.1 g/dL (6.3-8.2)
--- NOTE | 2018-01-28 14:45 | XR ---
EXAMINATION TYPE: XR chest 2V DATE OF EXAM: 01/28/2018 COMPARISON: 01/26/2018 HISTORY: 72-year-old male with chest pain TECHNIQUE: PA and lateral views FINDINGS: Heart is normal size. Aorta and pulmonary vasculature within normal limits. Strandy atelectasis mid a nd lower lungs. No consolidation or pleural effusion. IMPRESSION: No acute cardiopulmonary process.
[2018-01-28 14:51] LABS: Creatine Kinase 127 U/L (55-170)
[2018-01-28 15:04] LABS: Troponin I <0.012 ng/mL (0.000-0.034)
[2018-01-28] MEDS ORDERED: SODIUM POLYSTYRENE SULFONATE 15 GM/60 ML BOTTLE PO ONE (15:14)
[2018-01-28 15:35] VITALS: BP 171/81
[2018-01-28 16:03] VITALS: PULSE 70; TEMP 98.2
== END 2018-01-28 16:10 | disposition home or self-care (01) ==
LOC: EC 12:07
DX: R10.9 Unspecified abdominal pain (principal); I10 Essential (primary) hypertension; K59.00 Constipation, unspecified; K21.9 Gastro-esophageal reflux disease without esophagitis; E11.9 Type 2 diabetes mellitus without complications; F32.9 Major depressive disorder, single episode, unspecified; M19.90 Unspecified osteoarthritis, unspecified site; Z87.19 Personal history of other diseases of the digestive system; E07.9 Disorder of thyroid, unspecified; I25.2 Old myocardial infarction; N40.0 Benign prostatic hyperplasia without lower urinary tract symptoms; Z87.442 Personal history of urinary calculi; Z90.49 Acquired absence of other specified parts of digestive tract; Z87.448 Personal history of other diseases of urinary system; Z79.84 Long term (current) use of oral hypoglycemic drugs; Z79.82 Long term (current) use of aspirin; Z79.899 Other long term (current) drug therapy; Z98.890 Other specified postprocedural states
CPT/HCPCS: 36415; 71046; 74018; 80053; 82550; 82553; 83605; 83735; 84484; 85025; 85610; 85730; 93005; 96360; 99284

== ENCOUNTER 2018-02-14 19:52 | Observation (INO) | payer MEDICARE, OTHER ==
[2018-02-14] MEDS ORDERED: RX INFO: IV CONTRAST WAS GIVEN 1 EACH MISC MISCELLANE PRN (20:26)
--- NOTE | 2018-02-14 20:38 | ED ---
Abdominal Pain HPI - General Chief Complaint: Abdominal Pain Stated Complaint: Constipated Time Seen by Provider: 02/14/18 20:00 Source: EMS Mode of arrival: EMS Limitations: no limitations - History of Present Illness Initial Comments: Patient is a 72-year-old male presenting to the emergency department for abdominal pain. Patient states that the pain is located in the lower portion of his abdomen and across his belly and started at 4:45 PM today. Physical pressure sensation radiating downwards and up into the right upper quadrant of his abdomen. He states that he has had some nausea and dry heaves but no vomiting and also denies fevers/chills. He denies any urinary symptoms such as urinary retention, dysuria, changes in frequency but states that he has not had a bowel movement the last 3 days. He denies any intra-abdominal pathology other than appendicitis. Additionally, he complains of right-sided chest pain on the lower portion of the right chest feels a sharp sensation and worse with breathing that occurred on his way here. - Related Data Home Medications Medication Instructions Recorded Confirmed Dicyclomine HCl 20 mg PO HS 05/24/14 01/28/18 Levothyroxine Sodium [Synthroid] 100 mcg PO DAILY 05/24/14 01/28/18 Omeprazole 40 mg PO DAILY 05/24/14 01/28/18 metFORMIN HCL 1,000 mg PO BID 05/24/14 01/28/18 Nortriptyline [Pamelor] 25 mg PO HS 02/23/15 01/28/18 Acyclovir 400 mg PO BID 10/11/16 01/28/18 Metoprolol Succinate (ER) [Toprol 100 mg PO DAILY 10/11/16 01/28/18 XL] Tamsulosin [Flomax] 0.4 mg PO HS 10/11/16 01/28/18 amLODIPine [Norvasc] 5 mg PO DAILY 10/11/16 01/28/18 Aspirin EC [Ecotrin Low Dose] 81 mg PO HS 12/26/16 01/28/18 Tacrolimus [Prograf] 1 mg PO Q48H 06/28/17 01/28/18 Gabapentin [Neurontin] 100 mg PO HS 01/26/18 01/28/18 Isosorbide Mononitrate ER [Imdur] 30 mg PO DAILY 01/26/18 01/28/18 clonazePAM [KlonoPIN] 0.5 mg PO DAILY PRN 01/26/18 01/28/18 Previous Rx's Medication Instructions Recorded Docusate [Colace] 100 mg PO DAILY #7 capsule 01/28/18 Allergies Allergy/AdvReac Type Severity Reaction Status Date / Time No Known Allergies Allergy Verified 02/14/18 20:00 Review of Systems ROS Statement: Those systems with pertinent positive or pertinent negative responses have been documented in the HPI. Constitutional: Negative for chills, fatigue and fever. HENT: Negative for congestion. Respiratory: Negative for chest tightness, shortness of breath and wheezing. Cardiovascular: Negative for and palpitations. Positive for chest pain Gastrointestinal: Positive for abdominal pain and nausea. Negative for abdominal distention, diarrhea, and vomiting. Genitourinary: Negative for dysuria. Negative for testicular pain Musculoskeletal: Negative for back pain, neck pain and neck stiffness. Skin: Negative for color change. Neurological: Negative for dizziness, speech difficulty, weakness and light- headedness. Psychiatric/Behavioral: Negative for agitation and confusion. The patient is not nervous/anxious. ROS Other: All systems not noted in ROS Statement are negative. 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 [facility], chronic intermittedt R lower abdominal pain with etiology unknown, NIDDM type II , BPH, rectal bleed, diverticulosis, kidney stones, pt denies any kidney disease other than stones."CHIPPED DISC" d/t faLL IN NOVEMBER Last Myocardial Infarction Date:: 2014 History of Any Multi-Drug Resistant Organisms: None Reported Past Surgical History: Adenoidectomy, Appendectomy, Cholecystectomy, Heart Catheterization With Stent, Hernia Repair, Orthopedic Surgery, Tonsillectomy Additional Past Surgical History / Comment(s): Bilateral carpal tunnel, bone spur removals to bilateral heels and FEET, X6 cardiac STENTS, RT KNEE BONE SPURS , CATARACTS JA with lens implants, JA INGUINAL HERNIA REPAIR AND UMBILLICAL. removal of malignant tumor from back,EGD 06-04-17, RT LEG SX FOR TORN LIGAMENT. "WAS BORN W/ OVERSIZED LIVER HAD SX TO REDUCE IT'S SIZE" Past Anesthesia/Blood Transfusion Reactions: No Reported Reaction Additional Past Anesthesia/Blood Transfusion Reaction / Comment(s): Pt states he has received blood in the past without reaction. Date of Last Stent Placement:: 2014 Past Psychological History: Depression Smoking Status: Never smoker Past Alcohol Use History: None Reported Past Drug Use History: None Reported - Past Family History Father Family Medical History: Myocardial Infarction ([place]) Additional Family Medical History / Comment(s): PTBA Mother Family Medical History: CVA/TIA, Diabetes Mellitus Additional Family Medical History / Comment(s): Mother of a CVA at the age of 82 yrs. Brother(s) Family Medical History: Cancer Additional Family Medical History / Comment(s): 2 brothers have MS General Exam - General Exam Comments Initial Comments: Physical Exam Constitutional: Pt is oriented to person, place, and time. Pt appears well- developed and well-nourished. No distress. HENT: Head: Normocephalic and atraumatic. Eyes: EOM are normal. Neck: Normal range of motion. Neck supple. Cardiovascular: Normal rate, regular rhythm, S1 normal, S2 normal 2/6 systolic murmur Exam reveals no gallop and no friction rub. No murmur heard. Pulmonary/Chest: Effort normal and breath sounds normal. No tachypnea and no bradypnea. No respiratory distress. No wheezes or rales noted. Abdominal: Soft. Bowel sounds are normal. Pt exhibits no shifting dullness, no distension, no pulsatile liver, no fluid wave, no abdominal bruit and no ascites. There is no tenderness. There is no rigidity, no rebound, no guarding, no tenderness at McBurney's point and negative Burrell's sign. Musculoskeletal: Normal range of motion. : No tenderness to palpation of bilateral testicles, no hernias palpated Neurological: Pt is alert and oriented to person, place, and time. No cranial nerve deficit. Skin: Skin is warm and dry. No rash noted. Pt is not diaphoretic. No erythema. No pallor. Psychiatric: Pt has a normal mood and affect. Pt behavior is normal. Thought content normal. Limitations: no limitations Course Vital Signs 02/14/18 02/14/18 02/14/18 19:57 20:50 21:16 Temperature 97.6 F Pulse Rate 83 78 77 Respiratory 18 18 18 Rate Blood Pressure 188/81 183/88 163/79 O2 Sat by Pulse 97 97 96 Oximetry 02/14/18 02/14/18 02/14/18 22:18 22:56 23:49 Temperature Pulse Rate 77 82 86 Respiratory 18 18 18 Rate Blood Pressure 183/80 185/99 181/87 O2 Sat by Pulse 98 98 96 Oximetry Reexamined patient and he appears to be resting in bed comfortably. Laboratory studies showed no significant derangements but patient states that he continues to have right-sided upper abdominal pain and right-sided lower chest pain. This pain is reproducible with palpation and is worse when the patient moves his right arm. It is also significantly worse when the patient moves his right arm against resistance. His explained that CT of the abdomen showed no evidence of acute pathology in that initial EKG was unremarkable. - Reevaluation(s) Reevaluation #1: 02/14/18 23:53 Patient continues to have chest pain and therefore it is felt that the patient should be placed in observation for continued treatment. Medical Decision Making - Medical Decision Making Laboratory studies revealed that there was no significant electrolyte abnormalities and cardiac evaluation was also negative for acute pathology and that troponin was not elevated. Chest x-ray also showed no evidence acute pathology. CT of the abdomen was completed and showed no emergent pathology as well nor constipation. However, patient continued to complain of worsening chest pain and patient has significant comorbidities including 7 prior stents. Because of this, the patient will be admitted to hospital for continued evaluation. - Lab Data Result diagrams: 02/14/18 20:50 02/14/18 20:50 Lab Results 02/14/18 02/14/18 02/14/18 Range/Units 20:44 20:50 20:50 WBC 6.0 (3.8-10.6) k/uL RBC 4.31 (4.30-5.90) m/uL Hgb 13.1 (13.0-17.5) gm/dL Hct 38.0 L (39.0-53.0) % MCV 88.3 (80.0-100.0) fL MCH 30.4 (25.0-35.0) pg MCHC 34.4 (31.0-37.0) g/dL RDW 13.6 (11.5-15.5) % Plt Count 136 L (150-450) k/uL Neutrophils % 70 % Lymphocytes % 19 % Monocytes % 6 % Eosinophils % 2 % Basophils % 0 % Neutrophils # 4.2 (1.3-7.7) k/uL Lymphocytes # 1.2 (1.0-4.8) k/uL Monocytes # 0.4 (0-1.0) k/uL Eosinophils # 0.1 (0-0.7) k/uL Basophils # 0.0 (0-0.2) k/uL PT (9.0-12.0) sec INR (<1.2) APTT (22.0-30.0) sec Sodium 147 H (137-145) mmol/L Potassium 3.7 (3.5-5.1) mmol/L Chloride 108 H (98-107) mmol/L Carbon Dioxide 25 (22-30) mmol/L Anion Gap 14 mmol/L BUN 19 (9-20) mg/dL Creatinine 1.30 H (0.66-1.25) mg/dL Est GFR (CKD-EPI)AfAm 64 (>60 ml/min/1.73 sqM) Est GFR (CKD-EPI)NonAf 55 (>60 ml/min/1.73 sqM) Glucose 119 H (74-99) mg/dL Plasma Lactic Acid Bassam (0.7-2.0) mmol/L Calcium 9.1 (8.4-10.2) mg/dL Total Bilirubin 0.2 (0.2-1.3) mg/dL AST 17 (17-59) U/L ALT 16 L (21-72) U/L Alkaline Phosphatase 80 (38-126) U/L Troponin I (0.000-0.034) ng/mL Total Protein 7.0 (6.3-8.2) g/dL Albumin 4.2 (3.5-5.0) g/dL Lipase 117 (23-300) U/L Urine Color Yellow Urine Appearance Clear (Clear) Urine pH 5.5 (5.0-8.0) Ur Specific [place] 1.020 (1.001-1.035) Urine Protein Trace H (Negative) Urine Glucose (UA) Negative (Negative) Urine Ketones Negative (Negative) Urine Blood Trace H (Negative) Urine Nitrite Negative (Negative) Urine Bilirubin Negative (Negative) Urine Urobilinogen <2.0 (<2.0) mg/dL Ur Leukocyte Esterase Negative (Negative) Urine RBC 2 (0-5) /hpf Urine WBC 1 (0-5) /hpf Urine Mucus Rare H (None) /hpf 02/14/18 02/14/18 02/14/18 Range/Units 20:50 20:50 20:50 WBC (3.8-10.6) k/uL RBC (4.30-5.90) m/uL Hgb (13.0-17.5) gm/dL Hct (39.0-53.0) % MCV (80.0-100.0) fL MCH (25.0-35.0) pg MCHC (31.0-37.0) g/dL RDW (11.5-15.5) % Plt Count (150-450) k/uL Neutrophils % % Lymphocytes % % Monocytes % % Eosinophils % % Basophils % % Neutrophils # (1.3-7.7) k/uL Lymphocytes # (1.0-4.8) k/uL Monocytes # (0-1.0) k/uL Eosinophils # (0-0.7) k/uL Basophils # (0-0.2) k/uL PT 10.8 (9.0-12.0) sec INR 1.1 (<1.2) APTT 23.1 (22.0-30.0) sec Sodium (137-145) mmol/L Potassium (3.5-5.1) mmol/L Chloride (98-107) mmol/L Carbon Dioxide (22-30) mmol/L Anion Gap mmol/L BUN (9-20) mg/dL Creatinine (0.66-1.25) mg/dL Est GFR (CKD-EPI)AfAm (>60 ml/min/1.73 sqM) Est GFR (CKD-EPI)NonAf (>60 ml/min/1.73 sqM) Glucose (74-99) mg/dL Plasma Lactic Acid Bassam 1.0 (0.7-2.0) mmol/L Calcium (8.4-10.2) mg/dL Total Bilirubin (0.2-1.3) mg/dL AST (17-59) U/L ALT (21-72) U/L Alkaline Phosphatase (38-126) U/L Troponin I <0.012 (0.000-0.034) ng/mL Total Protein (6.3-8.2) g/dL Albumin (3.5-5.0) g/dL Lipase (23-300) U/L Urine Color Urine Appearance (Clear) Urine pH (5.0-8.0) Ur Specific [place] (1.001-1.035) Urine Protein (Negative) Urine Glucose (UA) (Negative) Urine Ketones (Negative) Urine Blood (Negative) Urine Nitrite (Negative) Urine Bilirubin (Negative) Urine Urobilinogen (<2.0) mg/dL Ur Leukocyte Esterase (Negative) Urine RBC (0-5) /hpf Urine WBC (0-5) /hpf Urine Mucus (None) /hpf - EKG Data EKG Comments: EKG shows normal sinus rhythm with a rate of 78 bpm, MN interval 166, QRS 96, QTC 417. There is no significant ST depressions or elevations. Disposition Clinical Impression: Chest pain, Abdominal pain Disposition: ADMITTED IP TO THIS HOSP Condition: Fair Referrals: Micheal Adamson MD [Primary Care Provider] - 1-2 days Time of Disposition: 23:57 Decision to Admit Reason: Admit from EC
[2018-02-14 21:01] LABS: Basophils % (A) 0 %; Eosinophils # (A) 0.1 k/uL (0-0.7); Eosinophils % (A) 2 %; HGB 13.1 gm/dL (13.0-17.5); Lymphocytes # (A) 1.2 k/uL (1.0-4.8); Lymphocytes % (A) 19 %; MCH 30.4 pg (25.0-35.0); MCHC 34.4 g/dL (31.0-37.0); MCV 88.3 fL (80.0-100.0); Mean Platelet Volume 8.2; Monocytes # (A) 0.4 k/uL (0-1.0); Monocytes % (A) 6 %; Neutrophils # (A) 4.2 k/uL (1.3-7.7); Neutrophils % (A) 70 %; Platelet Count 136 k/uL (150-450); RBC 4.31 m/uL (4.30-5.90); RDW 13.6 % (11.5-15.5)
[2018-02-14 21:04] LABS: Appearance,Urine Clear (Clear); Bilirubin,Urine Negative (Negative); Blood,Urine Trace (Negative); Color,Urine Yellow; Glucose,Urine (UA) Negative (Negative); Ketones,Urine Negative (Negative); Leukocyte Esterase,Urine Negative (Negative); Mucus,Urine Rare /hpf; Nitrite,Urine Negative (Negative); PH, Urine 5.5 (5.0-8.0); Protein,Urine Trace (Negative); RBC,Urine 2 /hpf (0-5); Urobilinogen,Urine <2.0 mg/dL (<2.0); WBC,Urine 1 /hpf (0-5)
[2018-02-14 21:11] LABS: INR 1.1 (<1.2); Partial Thromboplastin Time 23.1 sec (22.0-30.0); Prothrombin Time 10.8 sec (9.0-12.0)
[2018-02-14 21:16] LABS: Albumin 4.2 g/dL (3.5-5.0); Calcium 9.1 mg/dL (8.4-10.2); Potassium 3.7 mmol/L (3.5-5.1); Total Bilirubin 0.2 mg/dL (0.2-1.3)
--- NOTE | 2018-02-14 21:57 | XR ---
EXAMINATION TYPE: XR chest 1V portable DATE OF EXAM: 02/14/2018 COMPARISON: Prior chest x-ray 01/28/2018 HISTORY: Constipation, abdominal pain, coronary artery disease TECHNIQUE: Single frontal view of the chest is obtained. FINDINGS: There is no focal air space opacity, pleural effusion, or pneumothorax seen. The cardiac silhouette size is stable. The osseous structures are intact. IMPRESSION: No acute process.
[2018-02-14] MEDS ORDERED: MORPHINE SULFATE 4MG/4ML SYRG IVP STA ×2 (22:08→23:46)
--- NOTE | 2018-02-14 22:13 | CT ---
EXAMINATION TYPE: CT abdomen pelvis w con DATE OF EXAM: 02/14/2018 COMPARISON: 01/26/2018 HISTORY: Prev. on synapse. Abdominal pain CT DLP: 1467.80 mGycm Automated exposure control for dose reduction was used. TECHNIQUE: Helical acquisition of images was performed from the lung bases through the pelvis. CONTRAST: Performed without Oral Contrast and with IV Contrast, patient injected with 80 mL of Isovue 300. FINDINGS: Lung bases are clear of consolidation. There is no pleural effusion. There is minimal subsegmental at electasis at the left lung base. There is no pericardial effusion. There are clips from cholecystectomy. Liver shows no focal defect. Bile ducts are not dilated. Spleen and pancreas appear normal. There is no adrenal mass. Kidneys show satisfactory contrast opacification. There is no hydronephrosi s. There are small parapelvic cysts. There is no retroperitoneal adenopathy. Abdominal aorta is ather omatous. There is no ascites. Bladder distends smoothly. There are some prostatic calcifications. I s ee no intestinal wall thickening. There are no dilated loops. There are clips apparently from appende ctomy. Appendix is not seen. I see no bony destructive process. There is a 8 mm left renal cortical c yst. IMPRESSION: PROSTATIC CALCIFICATION. SMALL RENAL PARAPELVIC CYSTS AND LEFT RENAL CORTICAL CYST. NO SIGN OF ACUTE ABDOMEN AND PELVIS. NO CHANGE COMPARED TO LAST EXAM.
[2018-02-14] MEDS ORDERED: ONDANSETRON 4 MG/2 ML VIAL IVP STA (23:21)
[2018-02-14] MEDS ORDERED: NALOXONE 0.4 MG/ML 1 ML VIAL IV PRN (23:58)
[2018-02-15] MEDS ORDERED: ASPIRIN 81 MG PO STA
[2018-02-15] MEDS ORDERED: clonazePAM 0.5 MG TAB PO PRN (01:19)
[2018-02-15] MEDS ORDERED: DOCUSATE 100 MG CAP PO PRN (01:21)
[2018-02-15 01:38] VITALS: BMI 31.0
[2018-02-15] MEDS ORDERED: amLODIPine 5 MG TAB PO STA (01:39)
[2018-02-15] MEDS: NORTRIPTYLINE 25 MG CAP PO SCH ×2 (02:03→21:02)
[2018-02-15] MEDS: DICYCLOMINE 20 MG TAB PO SCH ×2 (02:04→21:02)
[2018-02-15] MEDS: GABAPENTIN 100 MG CAP PO SCH ×2 (02:04→21:02)
[2018-02-15] MEDS: LEVOTHYROXINE 100 MCG TAB PO SCH (06:07)
[2018-02-15 07:15] LABS: Glucose,Whole Blood 107 mg/dL (75-99)
[2018-02-15] MEDS ORDERED: metFORMIN 500 MG TAB PO SCH (09:00)
[2018-02-15] MEDS ORDERED: DOCUSATE 100 MG CAP PO SCH (09:00)
[2018-02-15] MEDS: PANTOPRAZOLE 40 MG TABLET PO SCH (09:11)
[2018-02-15] MEDS: METOPROLOL SUCCINATE (ER) 100 MG TAB.ER.24H PO SCH (09:11)
[2018-02-15] MEDS: ISOSORBIDE MONONITRATE ER 30 MG TAB.ER.24H PO SCH (09:11)
[2018-02-15] MEDS: amLODIPine 5 MG TAB PO SCH (09:11)
[2018-02-15 11:55] LABS: Glucose,Whole Blood 94 mg/dL (75-99)
[2018-02-15] MEDS ORDERED: LACTULOSE 20 GM/30 ML CUP PO PRN (13:17)
[2018-02-15] MEDS ORDERED: ONDANSETRON 4 MG/2 ML VIAL IVP PRN (13:20)
--- NOTE | 2018-02-15 13:23 | P.HPIM ---
History of Present Illness This is a pleasant 72 years old male with past medical history of COPD, cancer, DM cancer DVT, GERD, junk believe, hypertension, OA who presents today because of abdominal pain of 3-4 days duration Patient pain complain is nonspecific he stays actually he has 3 spots that are painful: the right groin, middle abdomen, and central chest, and sometimes even to the left armpit. The patient states that his all pains feel the same like sharp and is just moving around, as per patient he has this pain for more than a year on and off, and then frequency of once a week; severity is about 6-7/10, which he states is the same as it is currently however get more severe yesterday so he decided to come to the ED This pain is associated with constipation over the last 3-4 days however he says he has been eating well, he vomited a little bit in the emergency room, his baseline as per patient usually have 3-4 bowel movements each day EKG shows normal sinus rhythm at [address] T changes CT of abdomen was unremarkable, CXR: no acute process Review of Systems 10 point systemic review were negative except but mentioned in HPI Past Medical History Past Medical History: Coronary Artery Disease (CAD), Cancer, Chest Pain / Angina , Diabetes Mellitus, Deep Vein Thrombosis (DVT), GERD/Reflux, GI Bleed, Hypertension, Myocardial Infarction ([place]), Osteoarthritis (OA), Prostate Disorder , Renal Disease, Thyroid Disorder Additional Past Medical History / Comment(s): having abdominal pain and rectal bleeding,2015 diagnosed with bone cancer after found to have cancerous tumor on his back-removed and pt had chemo, 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, chronic intermittedt R lower abdominal pain with etiology unknown, NIDDM type II , BPH, rectal bleed, diverticulosis, kidney stones, pt denies any kidney disease other than stones."CHIPPED DISC" d/t faLL IN NOVEMBER Last Myocardial Infarction Date:: 2014 History of Any Multi-Drug Resistant Organisms: None Reported Past Surgical History: Adenoidectomy, Appendectomy, Cholecystectomy, Heart Catheterization With Stent, Hernia Repair, Orthopedic Surgery, Tonsillectomy Additional Past Surgical History / Comment(s): Bilateral carpal tunnel, bone spur removals to bilateral heels and FEET, X6 cardiac STENTS, RT KNEE BONE SPURS , CATARACTS JA with lens implants, JA INGUINAL HERNIA REPAIR AND UMBILLICAL. removal of malignant tumor from back,EGD 06-04-17, RT LEG SX FOR TORN LIGAMENT. "WAS BORN W/ OVERSIZED LIVER HAD SX TO REDUCE IT'S SIZE" Past Anesthesia/Blood Transfusion Reactions: No Reported Reaction Additional Past Anesthesia/Blood Transfusion Reaction / Comment(s): Pt states he has received blood in the past without reaction. Date of Last Stent Placement:: 2014 Past Psychological History: Depression Additional Psychological History / Comment(s): Pt states he has a brother who has MS, is in a wheelchair that lives with him.HAS A RAMP Pt is independent. 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 Smoking Status: Never smoker Past Alcohol Use History: None Reported Past Drug Use History: None Reported - Past Family History Father Family Medical History: Myocardial Infarction ([place]) Additional Family Medical History / Comment(s): PTBA Mother Family Medical History: CVA/TIA, Diabetes Mellitus Additional Family Medical History / Comment(s): Mother of a CVA at the age of 82 yrs. Brother(s) Family Medical History: Cancer Additional Family Medical History / Comment(s): 2 brothers have MS Medications and Allergies Home Medications Medication Instructions Recorded Confirmed Type Dicyclomine HCl 20 mg PO HS 05/24/14 02/15/18 History Levothyroxine Sodium [Synthroid] 100 mcg PO DAILY 05/24/14 02/15/18 History Omeprazole 40 mg PO DAILY 05/24/14 02/15/18 History metFORMIN HCL 1,000 mg PO DAILY 05/24/14 02/15/18 History Nortriptyline [Pamelor] 25 mg PO HS 02/23/15 02/15/18 History Metoprolol Succinate (ER) [Toprol 100 mg PO DAILY 10/11/16 02/15/18 History XL] Tamsulosin [Flomax] 0.4 mg PO HS 10/11/16 02/15/18 History amLODIPine [Norvasc] 5 mg PO DAILY 10/11/16 02/15/18 History Aspirin EC [Ecotrin Low Dose] 81 mg PO HS 12/26/16 02/15/18 History Gabapentin [Neurontin] 100 mg PO HS 01/26/18 02/15/18 History Isosorbide Mononitrate ER [Imdur] 30 mg PO DAILY 01/26/18 02/15/18 History clonazePAM [KlonoPIN] 0.5 mg PO DAILY PRN 01/26/18 02/15/18 History Docusate [Colace] 100 mg PO DAILY #7 capsule 01/28/18 02/15/18 Rx Allergies Allergy/AdvReac Type Severity Reaction Status Date / Time No Known Allergies Allergy Verified 02/15/18 11:31 Physical Exam Vitals: Vital Signs Temp Pulse Pulse Resp BP BP Pulse Ox 02/15/18 12:00 98.1 F 66 16 131/73 98 02/15/18 08:00 97.8 F 68 16 150/77 93 L 02/15/18 03:08 62 18 02/15/18 02:53 68 18 152/79 98 02/15/18 01:54 70 18 02/15/18 01:00 98.1 F 70 18 196/92 98 02/15/18 00:50 98.1 F 70 18 196/92 98 02/15/18 00:38 98 F 74 16 171/85 96 02/14/18 23:49 86 18 181/87 96 02/14/18 22:56 82 18 185/99 98 02/14/18 22:18 77 18 183/80 98 02/14/18 21:16 77 18 163/79 96 02/14/18 20:50 78 18 183/88 97 02/14/18 19:57 97.6 F 83 18 188/81 97 Intake and Output 02/14/18 02/15/18 02/15/18 22:59 06:59 14:59 Intake Total 300 Balance 300 Intake: Oral 300 Other: Voiding Method Toilet Toilet # Voids 2 Weight 102.058 kg 103.9 kg Constitutional: No acute distress, conversant, pleasant Eyes: Anicteric sclerae, moist conjunctiva, no lid-lag PERRLA ENMT: NC/AT Oropharynx clear, no erythema, exudates Neck: Supple, FROM, no masses, or JVD No carotid bruits No thyromegaly Lungs: Clear to auscultation Clear to percussion Normal respiratory effort, no accessory muscle use Cardiovascular: Heart regular in rate and rhythm, No murmurs, gallops, or rubs No peripheral edema Abdominal: Soft - Generalized abdominal tenderness, no guarding, rebound or rigidity, both groins included in the right shows no hernia, no signs and symptoms and inflammation or mass Abdomen moving with respiration Normoactive bowel sounds No hepatomegaly, No splenomegaly No palpable mass No abdominal wall hernia noted Skin: Normal temperature, tone, texture, turgor No induration No subcutaneous nodules No rash, lesions No ulcers Extremities: No digital cyanosis No clubbing Pedal pulses intact and symmetrical Radial pulses intact and symmetrical Normal gait and station No calf tenderness Psychiatric: Alert and oriented to person, place and time Appropriate affect Intact judgement Neuro: Muscles Strength 5/5 in all 4 extremities Sensation to light touch grossly present throughout Cranial nerves II-XII grossly intact No focal sensory deficits Results CBC & Chem 7: 02/14/18 20:50 02/14/18 20:50 Labs: Abnormal Lab Results - Last 24 Hours (Table) 02/14/18 02/14/18 02/14/18 Range/Units 20:44 20:50 20:50 Hct 38.0 L (39.0-53.0) % Plt Count 136 L (150-450) k/uL Sodium 147 H (137-145) mmol/L Chloride 108 H (98-107) mmol/L Creatinine 1.30 H (0.66-1.25) mg/dL Glucose 119 H (74-99) mg/dL POC Glucose (mg/dL) (75-99) mg/dL ALT 16 L (21-72) U/L Urine Protein Trace H (Negative) Urine Blood Trace H (Negative) Urine Mucus Rare H (None) /hpf 02/15/18 Range/Units 06:59 Hct (39.0-53.0) % Plt Count (150-450) k/uL Sodium (137-145) mmol/L Chloride (98-107) mmol/L Creatinine (0.66-1.25) mg/dL Glucose (74-99) mg/dL POC Glucose (mg/dL) 107 H (75-99) mg/dL ALT (21-72) U/L Urine Protein (Negative) Urine Blood (Negative) Urine Mucus (None) /hpf Thrombosis Risk Factor Assmnt - Choose All That Apply Each Risk Factor Represents 2 Points: Age 61-74 years Thrombosis Risk Factor Assessment Total Risk Factor Score: 2 Thrombosis Risk Factor Assessment Level: Low Risk Assessment and Plan Plan: -Chest pain, it looks at ITS similar pains in his abdomen and right groin, nonspecific, however patient was admitted from the emergency room with the recommendation for cardiology workup and consultation in the view of these extensive cardiac disease including in 7 stents cardiology consultation is called on pending Patient has been seen by hand alterations seamstress on 01/28/18 and they found that she has a history [facility] and he didn't recommend any cardiac workup on that time -Abdominal pain, chronic groin pain no obvious hernia , testicular exam shows no enlargement or tenderness Very nonspecific, could be related to his constipation start senna, Colace and lactulose prn -CKD with baseline creatinine is between 1.3-1.7 since 2016, creatinine on admission is 1.3, follow-up as an outpatien -Mild hypernatremia, encourage hydration -DM type II on metformin 1000 mg daily which was located on hold in view of her new contrast for her CT of the abdomen, continue sliding scale DVT prophylaxis subcutaneous heparin
[2018-02-15] MEDS: ACETAMINOPHEN TAB 325 MG TAB PO PRN (13:48)
[2018-02-15] MEDS: HEPARIN SODIUM,PORCINE 5,000 UNIT/ML 1 ML VIAL SQ SCH ×2 (13:49→21:02)
[2018-02-15] MEDS: SODIUM CHLORIDE 0.9% 1,000 ML IV SCH (13:49)
[2018-02-15] MEDS: SENNOSIDES 8.6 MG TAB PO SCH (14:18)
[2018-02-15 16:42] LABS: Glucose,Whole Blood 82 mg/dL (75-99)
[2018-02-15] MEDS: DOCUSATE 100 MG CAP PO SCH (21:02)
[2018-02-15] MEDS: ASPIRIN 81 MG PO SCH (21:02)
[2018-02-15] MEDS: TAMSULOSIN 0.4 MG CAP.ER.24H PO SCH (21:02)
[2018-02-15 21:04] LABS: Glucose,Whole Blood 99 mg/dL (75-99)
[2018-02-15 23:49] LABS: Hemoglobin A1C 5.8 % (4.0-6.0)
[2018-02-16] MEDS: LEVOTHYROXINE 100 MCG TAB PO SCH (06:02)
[2018-02-16] MEDS: SODIUM CHLORIDE 0.9% 1,000 ML IV SCH (06:02)
[2018-02-16 06:55] LABS: Basophils % (A) 1 %; Eosinophils # (A) 0.1 k/uL (0-0.7); Eosinophils % (A) 3 %; HCT 36.7 % (39.0-53.0); HGB 12.1 gm/dL (13.0-17.5); Lymphocytes # (A) 1.3 k/uL (1.0-4.8); Lymphocytes % (A) 34 %; MCH 29.4 pg (25.0-35.0); MCHC 32.9 g/dL (31.0-37.0); MCV 89.2 fL (80.0-100.0); Mean Platelet Volume 7.6; Monocytes # (A) 0.3 k/uL (0-1.0); Monocytes % (A) 8 %; Neutrophils # (A) 1.9 k/uL (1.3-7.7); Neutrophils % (A) 52 %; Platelet Count 108 k/uL (150-450); RBC 4.12 m/uL (4.30-5.90); RDW 13.8 % (11.5-15.5); WBC 3.7 k/uL (3.8-10.6)
[2018-02-16 07:02] LABS: Calcium 8.7 mg/dL (8.4-10.2); Potassium 4.2 mmol/L (3.5-5.1)
[2018-02-16 08:38] LABS: Glucose,Whole Blood 91 mg/dL (75-99)
[2018-02-16] MEDS: amLODIPine 5 MG TAB PO SCH (09:41)
[2018-02-16] MEDS: DOCUSATE 100 MG CAP PO SCH ×2 (09:41→20:50)
[2018-02-16] MEDS: SENNOSIDES 8.6 MG TAB PO SCH (09:41)
[2018-02-16] MEDS: METOPROLOL SUCCINATE (ER) 100 MG TAB.ER.24H PO SCH (09:41)
[2018-02-16] MEDS: HEPARIN SODIUM,PORCINE 5,000 UNIT/ML 1 ML VIAL SQ SCH ×2 (09:41→20:50)
[2018-02-16] MEDS: ISOSORBIDE MONONITRATE ER 30 MG TAB.ER.24H PO SCH (09:41)
[2018-02-16] MEDS: PANTOPRAZOLE 40 MG TABLET PO SCH (09:41)
--- NOTE | 2018-02-16 11:13 | CONS ---
CONSULTATION CHIEF COMPLAINT: Chest pain. Conrad is a 72-year-old gentleman with history of coronary artery disease, status post prior angioplasty, who has had multiple hospital visits within the last 1 year. He had 5 hospital admissions here at [facility] within the last 12 months and subsequently had been seen by Dr. Farrah Hammer in the office and his own brake lining curer at [facility]. Initially, he came in complaining of right leg pain. Subsequently had some discomfort in the abdomen and then had an episode of chest pain last night. His chest discomfort is sharp, precordial, unrelated to exertion or associated diaphoresis without any radiation to neck, arm or back, mild intensity. He has known CAD and has had prior angioplasty. I do not have these records with me. He also has history of bone marrow transplant and follows with an oncologist and a brake lining curer at [place]. History is also significant for hypertension, diabetes, renal insufficiency, and GI bleed. At the time of my evaluation this morning, he appears comfortable at rest. Cardiac enzymes have been negative. EKG does not reveal acute ischemic changes. The patient apparently has had a cardiac catheterization within the last 2 years that did not reveal significant obstructive CAD. PAST MEDICAL HISTORY: Past medical history is significant for coronary artery disease, status post angioplasty, hypertension, dyslipidemia, hypothyroidism, [id number] diabetes. CURRENT MEDICATIONS: Current medications include metformin, Klonopin, Norvasc, Flomax, omeprazole, Toprol, Synthroid, Imdur, Neurontin, Colace, aspirin. ALLERGIES: There are no known drug allergies. FAMILY HISTORY: Negative for premature coronary artery disease. SOCIAL HISTORY: Negative for current smoking, EtOH abuse, or drug abuse. REVIEW OF SYSTEMS: HEENT is unremarkable. CARDIAC: As described above. RESPIRATORY: Negative. GI: Negative. GENITOURINARY: Negative. ALLERGY/IMMUNOLOGICAL: SKIN: Negative. MUSCULOSKELETAL: Negative. ENDOCRINE: Negative. HEMATOLOGICAL: Negative. DERM: Negative. CONSTITUTIONAL: Negative. ONCOLOGICAL: Significant for bone marrow transplant. Rest of the system review is not relevant. PHYSICAL EXAM: On exam, patient is comfortable at rest. Vital signs are stable. There is no jugular venous distention. Carotid upstroke is normal. There is no bruit. Chest exam reveals good air entry bilaterally. Heart exam reveals first and second heart sounds. No gallop. No murmur. No rub. Abdomen is soft, nontender. Examination of extremities did not reveal any edema. Peripheral pulses are felt. LABS: Labs show a hemoglobin of 12.1, platelet count is 108, potassium is 4.2, creatinine is 1.2. EKG does not reveal ischemic changes. ASSESSMENT: 1. Chest pain, atypical probably noncardiac in origin. 2. Coronary artery disease, status post angioplasty. 3. History of bone marrow transplant. PLAN: Patient appears comfortable at rest. Myocardial infarction is ruled out. EKG normal. Cardiac enzymes have been negative. He does not require any further evaluation at this time. He can be discharged home from cardiac standpoint and have followup arranged with his brake lining curer. MMODL / IJN: [id number] /
[2018-02-16 12:38] LABS: Glucose,Whole Blood 128 mg/dL (75-99)
[2018-02-16] MEDS: ACETAMINOPHEN TAB 325 MG TAB PO PRN (15:15)
[2018-02-16 17:49] LABS: Glucose,Whole Blood 93 mg/dL (75-99)
--- NOTE | 2018-02-16 20:00 | P.PN ---
Subjective Patient resting in bed denies any further chest pain. This complain of abdominal pain possible ventral hernia. We'll consult surgery Objective - Vital Signs Vital signs: Vital Signs Temp 97.7 F 02/16/18 19:52 Pulse 77 02/16/18 19:52 Resp 16 02/16/18 19:52 BP 179/93 02/16/18 19:52 Pulse Ox 97 02/16/18 19:52 Intake & Output 02/16/18 02/16/18 02/17/18 06:59 18:59 06:59 Intake Total 450 Balance 450 Intake: Oral 450 Other: Voiding Method Toilet Toilet # Voids 2 - Constitutional General appearance: Present: mild distress - EENT Eyes: Present: PERRLA Ears: bilateral: normal - Neck Neck: Present: normal ROM - Respiratory Respiratory: bilateral: CTA - Cardiovascular Rhythm: regular - Gastrointestinal General gastrointestinal: Present: soft Localized gastrointestinal: tender: midline - Integumentary Integumentary: Present: normal - Neurologic Neurologic: Present: CNII-XII intact - Musculoskeletal Musculoskeletal: Present: gait normal - Psychiatric Psychiatric: Present: A&O x's 3, appropriate affect, intact judgment & insight - Labs CBC & Chem 7: 02/16/18 06:23 02/16/18 06:23 Labs: Abnormal Lab Results - Last 24 Hours (Table) 02/16/18 02/16/18 Range/Units 06:23 12:27 WBC 3.7 L (3.8-10.6) k/uL RBC 4.12 L (4.30-5.90) m/uL Hgb 12.1 L (13.0-17.5) gm/dL Hct 36.7 L (39.0-53.0) % Plt Count 108 L (150-450) k/uL POC Glucose (mg/dL) 128 H (75-99) mg/dL - Imaging and Cardiology Chest x-ray: report reviewed CT scan - abdomen: report reviewed Assessment and Plan Plan: Assessment Atypical chest pain cleared by cardiology Chronic abdominal pain possible ventral hernia Diabetes type 2 History of coronary artery disease History of DVT GERD Hypertension Thyroid disorder Plan Discharge home after surgical consultation
[2018-02-16 20:45] LABS: Glucose,Whole Blood 113 mg/dL (75-99)
[2018-02-16] MEDS: ASPIRIN 81 MG PO SCH (20:50)
[2018-02-16] MEDS: NORTRIPTYLINE 25 MG CAP PO SCH (20:50)
[2018-02-16] MEDS: GABAPENTIN 100 MG CAP PO SCH (20:50)
[2018-02-16] MEDS: TAMSULOSIN 0.4 MG CAP.ER.24H PO SCH (20:50)
[2018-02-16] MEDS: DICYCLOMINE 20 MG TAB PO SCH (20:50)
[2018-02-17 07:03] LABS: Glucose,Whole Blood 109 mg/dL (75-99)
[2018-02-17 07:53] VITALS: RESP 18
[2018-02-17] MEDS: ACETAMINOPHEN TAB 325 MG TAB PO PRN (08:51)
[2018-02-17] MEDS: PANTOPRAZOLE 40 MG TABLET PO SCH (08:52)
[2018-02-17] MEDS: amLODIPine 5 MG TAB PO SCH (08:52)
[2018-02-17] MEDS: ISOSORBIDE MONONITRATE ER 30 MG TAB.ER.24H PO SCH (08:52)
[2018-02-17] MEDS: METOPROLOL SUCCINATE (ER) 100 MG TAB.ER.24H PO SCH (08:52)
[2018-02-17] MEDS: LEVOTHYROXINE 100 MCG TAB PO SCH (08:52)
[2018-02-17] MEDS: HEPARIN SODIUM,PORCINE 5,000 UNIT/ML 1 ML VIAL SQ SCH (08:53)
[2018-02-17] MEDS: SENNOSIDES 8.6 MG TAB PO SCH (08:53)
[2018-02-17] MEDS: DOCUSATE 100 MG CAP PO SCH (08:53)
[2018-02-17 11:34] VITALS: BP 125/78; PULSE 78; TEMP 98.4
--- NOTE | 2018-02-17 12:23 | P.PN ---
Subjective Patient states abdominal pain worse especially on ambulation or standing. Patient tender to periumbilical area right lower quadrant. Awaiting consultation with surgery regarding possible treatment. Patient has been cleared for chest pain per cardiology Objective - Vital Signs Vital signs: Vital Signs Temp 98.4 F 02/17/18 11:15 Pulse 78 02/17/18 11:15 Resp 18 02/17/18 11:15 BP 125/78 02/17/18 11:15 Pulse Ox 97 02/17/18 11:15 Intake & Output 02/16/18 02/17/18 02/17/18 18:59 06:59 18:59 Intake Total 450 240 Balance 450 240 Intake: Oral 450 240 Other: Voiding Method Toilet Toilet Toilet - Constitutional General appearance: Present: mild distress - EENT Eyes: Present: PERRLA Ears: bilateral: normal - Respiratory Respiratory: bilateral: CTA - Gastrointestinal General gastrointestinal: Present: soft Localized gastrointestinal: tender: RLQ, midline - Integumentary Integumentary: Present: normal - Neurologic Neurologic: Present: CNII-XII intact - Psychiatric Psychiatric: Present: A&O x's 3, appropriate affect, intact judgment & insight - Labs CBC & Chem 7: 02/16/18 06:23 02/16/18 06:23 Labs: Abnormal Lab Results - Last 24 Hours (Table) 02/16/18 02/16/18 02/17/18 Range/Units 12:27 20:38 07:01 POC Glucose (mg/dL) 128 H 113 H 109 H (75-99) mg/dL - Imaging and Cardiology CT scan - abdomen: report reviewed Assessment and Plan Plan: Assessment Atypical chest pain cleared by cardiology Abdominal pain acute on chronic Diabetes type 2 History of coronary disease with history of RI History of DVT GERD Hypertension Prostate disorder Hypothyroidism Renal disease Plan Cleared by cardiology Hopeful discharge soon awaiting consultation from surgery
[2018-02-17 12:27] LABS: Glucose,Whole Blood 108 mg/dL (75-99)
--- NOTE | 2018-02-17 13:15 | P.GSCN ---
History of Present Illness Consult date: 02/17/18 Reason for Consult: Abdominal pain History of present illness: 72-year-old male seen at the request of the attending for a surgical eval for abdominal pain right lower quadrant patient admitted to the emergency room on the day of admission with multiple chief complaints. Patient stated he had been having pain in his right groin midabdomen in the central chest radiating to the left armpit. Patient has been seen by cardiology service this admission. Cardiology indicated no further cardiac workup patient could be discharged from a cardiac perspective with the plan the patient will follow-up with his primary industrial safety and health technician at [facility] in which the patient states he has an appointment tomorrow patient states that the abdominal discomfort is in the right lower quadrant "it feels like a hernia" currently denying any right groin discomfort. Chest pain has resolved. Palpating to the abdominal wall not able to palpate a hernia abdomen is soft no rebound no guarding CAT scan of the abdomen and pelvis with contrast on the showed prosthetic calcification no signs of an acute abdomen and pelvis no change compared to prior assessment. past medical history coronary artery disease, esophageal reflux, hypertension, osteoarthritis, prostate disorder. Diagnosed with bone cancer in 2014 last chemo 2016 underwent a bone marrow transplant [facility]. Chronic intermittent right lower abdominal pain diverticulosis Review of Systems Essentially unremarkable except as mentioned in the present illness Past Medical History Past Medical History: Coronary Artery Disease (CAD), Cancer, Chest Pain / Angina , Diabetes Mellitus, Deep Vein Thrombosis (DVT), GERD/Reflux, GI Bleed, Hypertension, Myocardial Infarction ([place]), Osteoarthritis (OA), Prostate Disorder , Renal Disease, Thyroid Disorder Additional Past Medical History / Comment(s): having abdominal pain and rectal bleeding,2014 diagnosed with bone cancer after found to have cancerous tumor on his back-removed and pt had chemo, 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 [facility], chronic intermittedt R lower abdominal pain with etiology unknown, NIDDM type II , BPH, rectal bleed, diverticulosis, kidney stones, pt denies any kidney disease other than stones."CHIPPED DISC" d/t faLL IN NOVEMBER Last Myocardial Infarction Date:: 2014 History of Any Multi-Drug Resistant Organisms: None Reported Past Surgical History: Adenoidectomy, Appendectomy, Cholecystectomy, Heart Catheterization With Stent, Hernia Repair, Orthopedic Surgery, Tonsillectomy Additional Past Surgical History / Comment(s): Bilateral carpal tunnel, bone spur removals to bilateral heels and FEET, X6 cardiac STENTS, RT KNEE BONE SPURS , CATARACTS JA with lens implants, JA INGUINAL HERNIA REPAIR AND UMBILLICAL. removal of malignant tumor from back,EGD 06-04-17, RT LEG SX FOR TORN LIGAMENT. "WAS BORN W/ OVERSIZED LIVER HAD SX TO REDUCE IT'S SIZE" Past Anesthesia/Blood Transfusion Reactions: No Reported Reaction Additional Past Anesthesia/Blood Transfusion Reaction / Comm: Pt states he has received blood in the past without reaction. Date of Last Stent Placement:: 2014 Past Psychological History: Depression Additional Psychological History / Comment(s): Pt states he has a brother who has MS, is in a wheelchair that lives with him.HAS A RAMP Pt is independent. 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 Smoking Status: Never smoker Past Alcohol Use History: None Reported Past Drug Use History: None Reported - Past Family History Father Family Medical History: Myocardial Infarction ([place]) Additional Family Medical History / Comment(s): PTBA Mother Family Medical History: CVA/TIA, Diabetes Mellitus Additional Family Medical History / Comment(s): Mother of a CVA at the age of 82 yrs. Brother(s) Family Medical History: Cancer Additional Family Medical History / Comment(s): 2 brothers have MS Medications and Allergies Home Medications Medication Instructions Recorded Confirmed Type Dicyclomine HCl 20 mg PO HS 05/24/14 02/15/18 History Levothyroxine Sodium [Synthroid] 100 mcg PO DAILY 05/24/14 02/15/18 History Omeprazole 40 mg PO DAILY 05/24/14 02/15/18 History metFORMIN HCL 1,000 mg PO DAILY 05/24/14 02/15/18 History Nortriptyline [Pamelor] 25 mg PO HS 02/23/15 02/15/18 History Metoprolol Succinate (ER) [Toprol 100 mg PO DAILY 10/11/16 02/15/18 History XL] Tamsulosin [Flomax] 0.4 mg PO HS 10/11/16 02/15/18 History amLODIPine [Norvasc] 5 mg PO DAILY 10/11/16 02/15/18 History Aspirin EC [Ecotrin Low Dose] 81 mg PO HS 12/26/16 02/15/18 History Gabapentin [Neurontin] 100 mg PO HS 01/26/18 02/15/18 History Isosorbide Mononitrate ER [Imdur] 30 mg PO DAILY 01/26/18 02/15/18 History clonazePAM [KlonoPIN] 0.5 mg PO DAILY PRN 01/26/18 02/15/18 History Docusate [Colace] 100 mg PO DAILY #7 capsule 01/28/18 02/15/18 Rx Allergies Allergy/AdvReac Type Severity Reaction Status Date / Time No Known Allergies Allergy Verified 02/15/18 11:31 Surgical - Exam Vital Signs Temp Pulse Resp BP Pulse Ox 97.6 F 83 18 188/81 97 02/14/18 19:57 02/14/18 19:57 02/14/18 19:57 02/14/18 19:57 02/14/18 19:57 GENERAL APPEARANCE: 72-year-old male patient is alert, oriented, in no acute distress. Talkative VITAL SIGNS: Reviewed HEENT: Head is normocephalic and atraumatic. Pupils are equal and reactive. The nares are patent. Oropharynx is clear without lesions. NECK: Supple without lymphadenopathy. Traches midline. HEART: S1, S2. Regular rate and rhythm. Denying chest pain no murmur LUNGS: No crackles or wheezes are heard. Adequate air movement bilaterally ABDOMEN: Soft, nontender, nondistended with good bowel sounds. No peritoneal signs. No palpable organomegaly or masses. Not able to palpate a umbilical or inguinal hernia tolerating a diet no nausea no vomiting urinating no difficulty no frequent stooling EXTREMITIES: Normal skin color and turgor. No cyanosis, rash, ulceration, clubbing or edema. Radial pedal pulses are 2/4 bilaterally. NEUROLOGICAL: No focal deficits. Strength and sensation are grossly intact. Results - Labs 02/16/18 06:23 02/16/18 06:23 Abnormal Lab Results - Last 24 Hours (Table) 02/16/18 02/17/18 02/17/18 Range/Units 20:38 07:01 12:19 POC Glucose (mg/dL) 113 H 109 H 108 H (75-99) mg/dL Assessment and Plan Assessment: Impression Present on admission atypical chest pain Computed tomography scan of the abdomen pelvis no evidence of an acute abdomen Chronic right lower abdominal pain [facility] 2016 Bowel history of bone cancer Plan No evidence of acute surgical abdomen at this time Defer to the attending for medical issues Cardiology recommendations noted signed off patient will follow-up with his primary industrial safety and health technician tomorrow and [facility] per patient report Home meds as appropriate DVT and GI prophylax Surgical consultation note dictated for Dr. Adamson The above impression and plan of care have been discussed and directed by signing physician. Mamta Estrada nurse practitioner acting as scribe for signing physician.
--- NOTE | 2018-02-18 12:21 | P.DS ---
Providers Date of admission: 02/14/18 23:58 Expected date of discharge: 02/17/18 Attending physician: Micheal Adamson Consults: 02/15/18 13:21 Consult Physician Routine Consulting Provider: Luis Panda Consult Reason/Comments: cp Do you want consulting provider notified?: Yes 02/16/18 14:54 Consult Physician Routine Consulting Provider: Sandy Garces Consult Reason/Comments: ab pain Do you want consulting provider notified?: Yes Primary care physician: Micheal Adamson Hospital Course: 72-year-old male was admitted through the emergency room with complaints of chest pain and abdominal pain. Patient was evaluated by cardiology and cleared for discharge. Patient continues to complain of abdominal pain had consultation with surgery Dr. Juan Diego Lepe. Was cleared for discharge home no acute abdomen Assessment Chest pain atypical cleared by cardiology Abdominal pain chronic cleared by surgery Mild hypernatremia resolved Diabetes type 2 Patient has history of coronary disease with history of [place] GERD Hypo-thyroidism Chronic renal disease Prostate disorder Plan Follow-up with Physician Dr. iMcheal Adamson Patient Condition at Discharge: Fair Plan - Discharge Summary Discharge Rx Participant: No New Discharge Prescriptions: New Acetaminophen Tab [Tylenol] 650 mg PO Q6HR PRN tab PRN Reason: Fever And/ Or Pain Docusate [Colace] 100 mg PO BID cap Continue metFORMIN HCL 1,000 mg PO DAILY Dicyclomine HCl 20 mg PO HS Levothyroxine Sodium [Synthroid] 100 mcg PO DAILY Omeprazole 40 mg PO DAILY Nortriptyline [Pamelor] 25 mg PO HS Tamsulosin [Flomax] 0.4 mg PO HS amLODIPine [Norvasc] 5 mg PO DAILY Metoprolol Succinate (ER) [Toprol XL] 100 mg PO DAILY Aspirin EC [Ecotrin Low Dose] 81 mg PO HS clonazePAM [KlonoPIN] 0.5 mg PO DAILY PRN PRN Reason: Anxiety Gabapentin [Neurontin] 100 mg PO HS Isosorbide Mononitrate ER [Imdur] 30 mg PO DAILY Docusate [Colace] 100 mg PO DAILY #7 capsule Discharge Medication List Dicyclomine HCl 20 mg PO HS 05/24/14 [History] Levothyroxine Sodium [Synthroid] 100 mcg PO DAILY 05/24/14 [History] Omeprazole 40 mg PO DAILY 05/24/14 [History] metFORMIN HCL 1,000 mg PO DAILY 05/24/14 [History] Nortriptyline [Pamelor] 25 mg PO HS 02/23/15 [History] Metoprolol Succinate (ER) [Toprol XL] 100 mg PO DAILY 10/11/16 [History] Tamsulosin [Flomax] 0.4 mg PO HS 10/11/16 [History] amLODIPine [Norvasc] 5 mg PO DAILY 10/11/16 [History] Aspirin EC [Ecotrin Low Dose] 81 mg PO HS 12/26/16 [History] Gabapentin [Neurontin] 100 mg PO HS 01/26/18 [History] Isosorbide Mononitrate ER [Imdur] 30 mg PO DAILY 01/26/18 [History] clonazePAM [KlonoPIN] 0.5 mg PO DAILY PRN 01/26/18 [History] Docusate [Colace] 100 mg PO DAILY #7 capsule 01/28/18 [Rx] Acetaminophen Tab [Tylenol] 650 mg PO Q6HR PRN tab 02/17/18 [Rx] Docusate [Colace] 100 mg PO BID cap 02/17/18 [Rx] Follow up Appointment(s)/Referral(s): Micheal Adamson MD [Primary Care Provider] - 1-2 days Patient Instructions/Handouts: Chest Pain (DC), Acute Abdominal Pain (GEN) Activity/Diet/Wound Care/Special Instructions: Follow up with jewelry inspector in 2 weeks. Discharge Disposition: HOME SELF-CARE
== END 2018-02-17 17:30 | disposition home or self-care (01) ==
LOC: EC 19:52 → 3OBS 23:58
PROVIDERS: ADMIT Family Medicine; ATTEND Family Medicine
DX: R10.31 Right lower quadrant pain (principal); R10.11 Right upper quadrant pain; G89.29 Other chronic pain; R07.89 Other chest pain; M79.604 Pain in right leg; R11.2 Nausea with vomiting, unspecified; R07.2 Precordial pain; E11.22 Type 2 diabetes mellitus with diabetic chronic kidney disease; E87.0 Hyperosmolality and hypernatremia; I25.10 Atherosclerotic heart disease of native coronary artery without angina pectoris; I25.2 Old myocardial infarction; K21.9 Gastro-esophageal reflux disease without esophagitis; E78.5 Hyperlipidemia, unspecified; E03.9 Hypothyroidism, unspecified; N18.9 Chronic kidney disease, unspecified; J44.9 Chronic obstructive pulmonary disease, unspecified; F32.9 Major depressive disorder, single episode, unspecified; Z86.718 Personal history of other venous thrombosis and embolism; I12.9 Hypertensive chronic kidney disease with stage 1 through stage 4 chronic kidney disease, or unspecified chronic kidney disease; M19.90 Unspecified osteoarthritis, unspecified site; K59.00 Constipation, unspecified; Z85.830 Personal history of malignant neoplasm of bone; N40.0 Benign prostatic hyperplasia without lower urinary tract symptoms; Z92.21 Personal history of antineoplastic chemotherapy; Z94.81 Bone marrow transplant status; Z87.442 Personal history of urinary calculi; Z90.49 Acquired absence of other specified parts of digestive tract; Z95.5 Presence of coronary angioplasty implant and graft; Z79.899 Other long term (current) drug therapy; Z79.84 Long term (current) use of oral hypoglycemic drugs; Z79.890 Hormone replacement therapy; Z79.82 Long term (current) use of aspirin; Z83.2 Family history of diseases of the blood and blood-forming organs and certain disorders involving the immune mechanism; Z91.81 History of falling
CPT/HCPCS: 99285 ×2; 96374 ×2; 96375 ×2; 96376 ×2; 96372 ×3; 36415; 93005; 80053; 80048; 83605; 83690; 84484; 85025 ×2; 85610; 85730; 81001; 83036; 71045; 74177; G0378 ×4; J1644 ×3; J2405; Q9967; J2270

== ENCOUNTER 2018-03-14 03:24 | Emergency (ER) | payer MEDICARE, OTHER ==
[2018-03-14] MEDS ORDERED: NA PHOS,M-B/NA PHOS,DI-BA 133 ML ENEMA RECTAL STA (03:50)
--- NOTE | 2018-03-14 04:00 | ED ---
General Adult HPI - General Chief complaint: Abdominal Pain Stated complaint: abd pain Time Seen by Provider: 03/14/18 03:26 Source: patient, EMS, RN notes reviewed, old records reviewed Mode of arrival: EMS Limitations: no limitations - History of Present Illness Initial comments: 72-year-old male presents for evaluation of lower abdominal pain. Patient is brought in EMS with 10 out of 10 lower abdominal pain. Patient describes this as crampy in nature, sharp and present for the past 2 days. He does have history of chronic abdominal pain and chronic pain. He states his last bowel movement was 2-3 days ago. He has been straining and has only had minimal stool output. Denies any upper abdominal pain. Denies any chest pain or shortness of breath. Denies nausea or vomiting. Denies any dysuria or hematuria. Denies flank pain. - Related Data Home Medications Medication Instructions Recorded Confirmed Dicyclomine HCl 20 mg PO HS 05/24/14 02/15/18 Levothyroxine Sodium [Synthroid] 100 mcg PO DAILY 05/24/14 02/15/18 Omeprazole 40 mg PO DAILY 05/24/14 02/15/18 metFORMIN HCL 1,000 mg PO DAILY 05/24/14 02/15/18 Nortriptyline [Pamelor] 25 mg PO HS 02/23/15 02/15/18 Metoprolol Succinate (ER) [Toprol 100 mg PO DAILY 10/11/16 02/15/18 XL] Tamsulosin [Flomax] 0.4 mg PO HS 10/11/16 02/15/18 amLODIPine [Norvasc] 5 mg PO DAILY 10/11/16 02/15/18 Aspirin EC [Ecotrin Low Dose] 81 mg PO HS 12/26/16 02/15/18 Gabapentin [Neurontin] 100 mg PO HS 01/26/18 02/15/18 Isosorbide Mononitrate ER [Imdur] 30 mg PO DAILY 01/26/18 02/15/18 clonazePAM [KlonoPIN] 0.5 mg PO DAILY PRN 01/26/18 02/15/18 Previous Rx's Medication Instructions Recorded Docusate [Colace] 100 mg PO DAILY #7 capsule 01/28/18 Acetaminophen Tab [Tylenol] 650 mg PO Q6HR PRN tab 02/17/18 Docusate [Colace] 100 mg PO BID cap 02/17/18 Polyethylene Glycol 3350 [Miralax] 17 gm PO DAILY #527 gm 03/14/18 Allergies Allergy/AdvReac Type Severity Reaction Status Date / Time No Known Allergies Allergy Verified 02/15/18 11:31 Review of Systems ROS Statement: Those systems with pertinent positive or pertinent negative responses have been documented in the HPI. ROS Other: All systems not noted in ROS Statement are negative. 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 [facility], chronic intermittedt R lower abdominal pain with etiology unknown, NIDDM type II , BPH, rectal bleed, diverticulosis, kidney stones, pt denies any kidney disease other than stones."CHIPPED DISC" d/t faLL IN NOVEMBER Last Myocardial Infarction Date:: 2014 History of Any Multi-Drug Resistant Organisms: None Reported Past Surgical History: Adenoidectomy, Appendectomy, Cholecystectomy, Heart Catheterization With Stent, Hernia Repair, Orthopedic Surgery, Tonsillectomy Additional Past Surgical History / Comment(s): Bilateral carpal tunnel, bone spur removals to bilateral heels and FEET, X6 cardiac STENTS, RT KNEE BONE SPURS , CATARACTS JA with lens implants, JA INGUINAL HERNIA REPAIR AND UMBILLICAL. removal of malignant tumor from back,EGD 06-04-17, RT LEG SX FOR TORN LIGAMENT. "WAS BORN W/ OVERSIZED LIVER HAD SX TO REDUCE IT'S SIZE" Past Anesthesia/Blood Transfusion Reactions: No Reported Reaction Additional Past Anesthesia/Blood Transfusion Reaction / Comment(s): Pt states he has received blood in the past without reaction. Date of Last Stent Placement:: 2014 Past Psychological History: Depression Smoking Status: Never smoker Past Alcohol Use History: None Reported Past Drug Use History: None Reported - Past Family History Father Family Medical History: Myocardial Infarction ([place]) Additional Family Medical History / Comment(s): PTBA Mother Family Medical History: CVA/TIA, Diabetes Mellitus Additional Family Medical History / Comment(s): Mother of a CVA at the age of 82 yrs. Brother(s) Family Medical History: Cancer Additional Family Medical History / Comment(s): 2 brothers have MS General Exam Limitations: no limitations General appearance: alert, in no apparent distress Head exam: Present: atraumatic, normocephalic Eye exam: Present: normal appearance, PERRL, EOMI ENT exam: Present: normal exam Neck exam: Present: normal inspection. Absent: tenderness, meningismus Respiratory exam: Present: normal lung sounds bilaterally. Absent: respiratory distress, wheezes Cardiovascular Exam: Present: regular rate, normal rhythm GI/Abdominal exam: Present: soft, distended, tenderness (Mild tenderness to palpation in the bilateral lower quadrants, worse in the left lower quadrant). Absent: guarding, rebound Rectal exam: Present: normal rectal tone, fecal impaction Extremities exam: Present: normal inspection, normal capillary refill. Absent: pedal edema Neurological exam: Present: alert, oriented X3, CN II-XII intact. Absent: motor sensory deficit Psychiatric exam: Present: normal affect, normal mood Skin exam: Present: warm, dry, intact. Absent: cyanosis, diaphoretic Course Vital Signs 03/14/18 03:46 Temperature 97.1 F L Pulse Rate 64 Respiratory 16 Rate Blood Pressure 165/81 O2 Sat by Pulse 99 Oximetry Medical Decision Making - Medical Decision Making 72-year-old male presents with lower abdominal pain, history consistent with constipation. Rectal exam does reveal impacted stool. X-ray obtained is negative for obstruction or free air, there is a large stool burning throughout the colon. Patient is on opiate pain medications this likely cause of his constipation. He is given an enema and magnesium citrate in the emergency department, on reevaluation he has had some stool output and is feeling somewhat better. He'll be started on Colace and MiraLAX. CT from 1 month ago was negative for any acute intra-abdominal process. Patient 's symptoms today are similar to pain he had one month ago. Disposition Clinical Impression: Constipation, Abdominal pain Disposition: HOME SELF-CARE Condition: Good Instructions: Abdominal Pain (ED), Constipation (ED), High Fiber Diet (ED) Prescriptions: Polyethylene Glycol 3350 [Miralax] 17 gm PO DAILY #527 gm Is patient prescribed a controlled substance at d/c from ED?: No Referrals: Micheal Adamson MD [Primary Care Provider] - 1-2 days Time of Disposition: 06:16
[2018-03-14] MEDS ORDERED: MAGNESIUM CITRATE 296 ML BOTTLE PO ONE (04:44)
--- NOTE | 2018-03-14 05:28 | XR ---
EXAM: XR Abdomen, 2 Views CLINICAL HISTORY: ITS.REASON XR Reason: Pain TECHNIQUE: Frontal view of the abdomen/pelvis with upright view of the abdomen. COMPARISON: No relevant prior studies available. FINDINGS: Intraperitoneal space: No free air. Gastrointestinal tract: Unremarkable. No dilation. Bones/joints: Unremarkable. Soft tissues: Surgical clips in the right upper quadrant. IMPRESSION: Nonspecific, nonobstructive bowel gas pattern. Moderate amount of retained stool in the colon.
[2018-03-14 06:30] VITALS: BP 155/79; PULSE 80; RESP 18; TEMP 98
== END 2018-03-14 06:42 | disposition home or self-care (01) ==
LOC: EC 03:24
DX: K59.00 Constipation, unspecified (principal); I10 Essential (primary) hypertension; I25.10 Atherosclerotic heart disease of native coronary artery without angina pectoris; M19.90 Unspecified osteoarthritis, unspecified site; K21.9 Gastro-esophageal reflux disease without esophagitis; E11.9 Type 2 diabetes mellitus without complications; N40.0 Benign prostatic hyperplasia without lower urinary tract symptoms; F32.9 Major depressive disorder, single episode, unspecified; I25.2 Old myocardial infarction; Z79.82 Long term (current) use of aspirin; Z79.84 Long term (current) use of oral hypoglycemic drugs; Z79.899 Other long term (current) drug therapy; Z86.79 Personal history of other diseases of the circulatory system; Z85.830 Personal history of malignant neoplasm of bone; Z92.21 Personal history of antineoplastic chemotherapy; Z90.49 Acquired absence of other specified parts of digestive tract; Z98.890 Other specified postprocedural states
CPT/HCPCS: 74018; 99285

== ENCOUNTER → 2018-03-19 | Outpatient (CLI) | payer MEDICARE, OTHER ==
[2018-03-19 12:08] VITALS: BP 166/82; PULSE 72; RESP 18
--- NOTE | 2018-03-19 12:39 | P.PAINPG ---
Subjective Progress Note Date: 03/19/18 Principal diagnosis: 9-year-old male with a history of back pain and bilateral leg pain and cramping This is a very pleasant 72-year-old gentleman with a two-year history of pain in his back as well as cramps in his legs which are worse at night and while walking. He has a history of previous bone cancer and underwent bone marrow transplant. He did have a heart attack after his bone marrow biopsy and hasn't placed on cardiac medications since then. He is going to physical therapy multiple times. His last session was last month. This is not helpful for him. He denies any bowel or bladder dysfunction. His pain is mainly in his back and radiating down both legs. The cramping is worse in his calves. Objective - Vital Signs Vital signs: Vital Signs Temp Pulse 72 03/19/18 12:01 Resp 18 03/19/18 12:01 BP 166/82 03/19/18 12:01 Pulse Ox 99 03/19/18 12:01 Intake & Output 03/18/18 03/19/18 03/19/18 18:59 06:59 18:59 Weight 101.605 kg - Exam Gen: WDWN, AAOx3, NAD HEENT: NCAT, EOMI, hearing grossly normal Pulm: resp unlabored Abd: soft, NT, ND Neck: supple, trachea midline ROM in flexion cervical spine: Slightly decreased ROM in extension cervical spine: Slightly decreased Cervical paravertebral tenderness: Absent Cervical Facet tenderness: Absent Spurling's: Negative ROM in flexion lumbar spine: Normal ROM in extension lumbar spine: Decreased Lumbar paravertebral tenderness: None Facet loading: Mildly positive bilaterally SI joint tenderness: Absent Lenny's test: Negative Straight leg raise: Negative bilaterally Neuro: muscle strength lower extremities intact bilaterally Assessment and Plan (1) Spinal stenosis of lumbar region Current Visit: Yes Status: Chronic Code(s): M48.061 - SPINAL STENOSIS, LUMBAR REGION WITHOUT NEUROGENIC ZONIA SNOMED Code(s): 89232531 Plan: I discussed the patient undergoing a lumbar epidural steroid injection. I explained him the risks and benefits of this procedure. He voices understanding of these things and agreed with the plan to move forward with this procedure. Time with Patient: Less than 30 PQRS Measure Charge Sheet Measure #130: Documentation of Current Meds in Medical Chart: Patient's medications documented in chart Measure #226: Tobacco Use: Screen & Cessation Intervention: Pt not a tobacco user Measure #111: Pneumonia Vaccination: Pneumococcal vaccine NOT administered or previously given Measure #47: Advance Care Plan: Advance care planning discussed & documented, pt chose/unable to give Measure #412: Opioid Treatment Agreement: No documentation of signed opioid treatment agreement Measure #408: Opioid Therapy Follow-up Evaluation: Patient had NO f/u eval minimum every 3 months during opioid therapy Measure #317: Preventitive Care & Scrn High Bld Press & F/U: Normal blood pressure, f/u not required Measure #128: Body Mass Index (BMI) Screening & Follow-up: BMI documented ABOVE normal parameters - f/u documented Measure #131: Pain Assessment & Follow-up: Pain positive & plan documented Measure #431: Unhealthy Alcohol Use Preventative Care & Scrn: Patient not identified as an unhealthy alcohol user PQRS Narrative: Smoking Status Never smoker Do You Want the Pneumonia Yes Vaccine AT THIS TIME? Blood Pressure 166/82 Pain Intensity [Back] 6 Scale Used Numeric (1 - 10) Hx Alcohol Use (MH) No Home Medications: Ambulatory Orders Dicyclomine HCl 20 mg PO HS 05/24/14 Levothyroxine Sodium [Synthroid] 100 mcg PO DAILY 05/24/14 Omeprazole 40 mg PO DAILY 05/24/14 metFORMIN HCL 1,000 mg PO DAILY 05/24/14 Nortriptyline [Pamelor] 25 mg PO HS 02/23/15 Metoprolol Succinate (ER) [Toprol XL] 100 mg PO DAILY 10/11/16 Tamsulosin [Flomax] 0.4 mg PO HS 10/11/16 amLODIPine [Norvasc] 5 mg PO DAILY 10/11/16 Aspirin EC [Ecotrin Low Dose] 81 mg PO HS 12/26/16 Gabapentin [Neurontin] 100 mg PO HS 01/26/18 Isosorbide Mononitrate ER [Imdur] 30 mg PO DAILY 01/26/18 clonazePAM [KlonoPIN] 0.5 mg PO DAILY PRN 01/26/18 Docusate [Colace] 100 mg PO DAILY #7 capsule 01/28/18 Acetaminophen Tab [Tylenol] 650 mg PO Q6HR PRN tab 02/17/18 Docusate [Colace] 100 mg PO BID cap 02/17/18 Polyethylene Glycol 3350 [Miralax] 17 gm PO DAILY #527 gm 03/14/18 Controlled Substance Measures - Controlled Substance Measures Is patient prescribed a controlled substance at discharge?: No If prescribed controlled substance>3 days was MAPS reviewed?: No When asked, does pt state using other controlled substances?: No Vital Signs - Respirations Respiratory Rate: 18 O2 Sat by Pulse Oximetry: 99
== END | disposition home or self-care (01) ==
LOC: PNWHC3 11:33
PROVIDERS: ATTEND Pain Medicine Pain Medicine
DX: M54.9 Dorsalgia, unspecified (principal); M48.061 Spinal stenosis, lumbar region without neurogenic claudication; M79.605 Pain in left leg; M79.604 Pain in right leg; R25.2 Cramp and spasm; Z85.830 Personal history of malignant neoplasm of bone; Z94.81 Bone marrow transplant status; Z79.891 Long term (current) use of opiate analgesic; Z79.899 Other long term (current) drug therapy
CPT/HCPCS: 99211

== ENCOUNTER 2018-03-20 13:05 | Emergency (ER) | payer MEDICARE, OTHER ==
[2018-03-20 13:27] VITALS: RESP 18
--- NOTE | 2018-03-20 13:57 | ED ---
General Adult HPI - General Chief complaint: Fall Stated complaint: fall, rt arm injury Time Seen by Provider: 03/20/18 13:31 Source: patient, RN notes reviewed Mode of arrival: ambulatory Limitations: no limitations - History of Present Illness Initial comments: 72-year-old male presents to the emergency department for chief complaint of fall about one hour ago. Patient states his shoes have a lot of prescription to them and he was walking on gravel which caused him to trip and fall. Patient denies feeling dizzy before the fall. Patient denies hitting his head or loss of consciousness. Patient states he fell on his right shoulder. Patient admits to chronic back pain but states it is not worse than it normally is. Patient also has chronic neck pain and states the pain is not worse in his neck. Patient takes a baby aspirin daily. Patient also complains of right wrist pain. No pain in the hand otherwise. No scaphoid tenderness. Patient has no other complaints at this time including shortness of breath, chest pain, abdominal pain, nausea or vomiting, headache, or visual changes. - Related Data Home Medications Medication Instructions Recorded Confirmed Dicyclomine HCl 20 mg PO HS 05/24/14 03/19/18 Levothyroxine Sodium [Synthroid] 100 mcg PO DAILY 05/24/14 03/19/18 Omeprazole 40 mg PO DAILY 05/24/14 03/19/18 metFORMIN HCL 1,000 mg PO DAILY 05/24/14 03/19/18 Nortriptyline [Pamelor] 25 mg PO HS 02/23/15 03/19/18 Metoprolol Succinate (ER) [Toprol 100 mg PO DAILY 10/11/16 03/19/18 XL] Tamsulosin [Flomax] 0.4 mg PO HS 10/11/16 03/19/18 amLODIPine [Norvasc] 5 mg PO DAILY 10/11/16 03/19/18 Aspirin EC [Ecotrin Low Dose] 81 mg PO HS 12/26/16 03/19/18 Gabapentin [Neurontin] 100 mg PO HS 01/26/18 03/19/18 Isosorbide Mononitrate ER [Imdur] 30 mg PO DAILY 01/26/18 03/19/18 clonazePAM [KlonoPIN] 0.5 mg PO DAILY PRN 01/26/18 03/19/18 Previous Rx's Medication Instructions Recorded Acetaminophen Tab [Tylenol] 650 mg PO Q6HR PRN tab 02/17/18 Polyethylene Glycol 3350 [Miralax] 17 gm PO DAILY #527 gm 03/14/18 Allergies Allergy/AdvReac Type Severity Reaction Status Date / Time No Known Allergies Allergy Verified 03/20/18 13:27 Review of Systems ROS Statement: Those systems with pertinent positive or pertinent negative responses have been documented in the HPI. ROS Other: All systems not noted in ROS Statement are negative. 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 [facility], chronic intermittedt R lower abdominal pain with etiology unknown, NIDDM type II , BPH, rectal bleed, diverticulosis, kidney stones, pt denies any kidney disease other than stones."CHIPPED DISC" d/t faLL IN NOVEMBER Last Myocardial Infarction Date:: 2014 History of Any Multi-Drug Resistant Organisms: None Reported Past Surgical History: Adenoidectomy, Appendectomy, Cholecystectomy, Heart Catheterization With Stent, Hernia Repair, Orthopedic Surgery, Tonsillectomy Additional Past Surgical History / Comment(s): Bilateral carpal tunnel, bone spur removals to bilateral heels and FEET, X6 cardiac STENTS, RT KNEE BONE SPURS , CATARACTS JA with lens implants, JA INGUINAL HERNIA REPAIR AND UMBILLICAL. removal of malignant tumor from back,EGD 06-04-17, RT LEG SX FOR TORN LIGAMENT. "WAS BORN W/ OVERSIZED LIVER HAD SX TO REDUCE IT'S SIZE" Past Anesthesia/Blood Transfusion Reactions: No Reported Reaction Additional Past Anesthesia/Blood Transfusion Reaction / Comment(s): Pt states he has received blood in the past without reaction. Date of Last Stent Placement:: 2014 Past Psychological History: Depression Smoking Status: Never smoker Past Alcohol Use History: None Reported Past Drug Use History: None Reported - Past Family History Father Family Medical History: Myocardial Infarction ([place]) Additional Family Medical History / Comment(s): PTBA Mother Family Medical History: CVA/TIA, Diabetes Mellitus Additional Family Medical History / Comment(s): Mother of a CVA at the age of 82 yrs. Brother(s) Family Medical History: Cancer Additional Family Medical History / Comment(s): 2 brothers have MS General Exam - General Exam Comments Initial Comments: Right Shoulder exam: Patient has about 100 of flexion and abduction of the right shoulder. Full adduction. About 15 of extension of the right shoulder. Neurovascular intact. Capillary refill less than 2 seconds and pedal pulse 2+ . Patient has mild tenderness of the shoulder as well as of the trapezius muscle. Positive empty can and Goel test. No ecchymosis or swelling noted. Patient has full range motion of the right elbow. No tenderness in the forearm or humerus. Right wrist exam: Patient has full flexion and extension and internal and external rotation. Capillary refill less than 2 seconds and radial pulse 2+. Patient is able to move all fingers of the hand. Patient complains of some numbness in the hand but sensation is intact. Patient has mild tenderness of the wrist. No scaphoid tenderness. Limitations: no limitations General appearance: alert, in no apparent distress Neck exam: Present: normal inspection. Absent: tenderness, meningismus, full ROM (Patient has slightly limited rotation of the neck which she states is normal for him.), lymphadenopathy Respiratory exam: Present: normal lung sounds bilaterally. Absent: respiratory distress, wheezes, rales, rhonchi, stridor Cardiovascular Exam: Present: regular rate, normal rhythm, normal heart sounds. Absent: systolic murmur, diastolic murmur, rubs, gallop, clicks Back exam: Absent: full ROM, paraspinal tenderness (Patient has slight limited flexion of the fact that she states is normal for him.), vertebral tenderness Course Vital Signs 03/20/18 13:22 Temperature 97.2 F L Pulse Rate 60 Respiratory 18 Rate Blood Pressure 170/85 O2 Sat by Pulse 97 Oximetry Medical Decision Making - Medical Decision Making 72-year-old male sent to the emergency determine for chief complaint of right upper extremity pain 1 hour. Patient fell in the driveway when he tripped. Patient did not hit his head or lose consciousness. Patient did not feel dizzy before he fell. Patient has some limited range of motion in the right shoulder as well as some mild tenderness. Mild tenderness in the wrist as well. Neurovascular intact. No scaphoid tenderness or tenderness in the right hand. Mild numbness in the right hand is present but patient has intact sensation. Shoulder x-ray demonstrates an indeterminate calcification at the level of the proximal right humerus that could be related to small chip injury or calcific tendinitis. This was reviewed by myself and Dr. Hou. It does not appear to be an acute fracture. Wrist x-ray shows no acute fracture or dislocation. Patient will use Tylenol for pain relief. He will do range of motion exercises with the shoulder. He will be given an Rey wrap for the wrist as well as rest ice and elevate the wrist. He will follow up with primary care in 1-2 days. He will return to the emergency department if he has any worsening symptoms. Disposition Clinical Impression: Shoulder pain, right, Wrist injury Disposition: HOME SELF-CARE Condition: Good Instructions: RICE Therapy (ED), Shoulder Sprain (ED) Additional Instructions: Please take Tylenol for pain. Please rest ice and elevate the affected wrist. Return to the emergency department if you have any worsening symptoms. Otherwise follow-up with primary care in 1-2 days. Is patient prescribed a controlled substance at d/c from ED?: No Referrals: Micheal Adamson MD [Primary Care Provider] - 1-2 days Time of Disposition: 15:18
--- NOTE | 2018-03-20 14:22 | XR ---
EXAMINATION TYPE: XR wrist complete RT DATE OF EXAM: 03/20/2018 CLINICAL HISTORY: Right wrist pain after fall TECHNIQUE: Frontal, lateral and oblique images of the right wrist are obtained. Scaphoid view was al so obtained. COMPARISON: None FINDINGS: There is no acute fracture/dislocation evident in the right wrist. Peripheral arterial mod erate atherosclerosis is noted. There is joint space narrowing and osteophytic spurring of the first carpal metacarpal joint. The overlying soft tissue appears unremarkable. Faint calcifications of the triangular fibrocartilage are present which can be seen in CPPD or other arthropathies. Carpal carpa l interspaces are not widened. IMPRESSION: There is no acute fracture or dislocation in the right wrist.
--- NOTE | 2018-03-20 15:03 | XR ---
Right shoulder HISTORY: Trauma and pain 3 views of the right shoulder Small calcific density at the level of the proximal right humerus on the internal rotated exam could be related to small chip injury or calcific tendinitis. Alignment and joint spaces are maintained. Sergey ne mineralization is within normal limits. Right lung apex as visualized is normal. IMPRESSION: Indeterminate calcification is described. No evident dislocation.
[2018-03-20 15:27] VITALS: BP 170/80; PULSE 70; TEMP 98
== END 2018-03-20 15:27 | disposition home or self-care (01) ==
LOC: EC 13:05
DX: S49.91XA Unspecified injury of right shoulder and upper arm, initial encounter (principal); M25.511 Pain in right shoulder; G89.29 Other chronic pain; M54.2 Cervicalgia; M54.9 Dorsalgia, unspecified; I25.10 Atherosclerotic heart disease of native coronary artery without angina pectoris; E11.9 Type 2 diabetes mellitus without complications; K21.9 Gastro-esophageal reflux disease without esophagitis; I10 Essential (primary) hypertension; I25.2 Old myocardial infarction; G56.03 Carpal tunnel syndrome, bilateral upper limbs; M19.90 Unspecified osteoarthritis, unspecified site; E07.9 Disorder of thyroid, unspecified; F32.9 Major depressive disorder, single episode, unspecified; N40.0 Benign prostatic hyperplasia without lower urinary tract symptoms; Z85.830 Personal history of malignant neoplasm of bone; Z95.5 Presence of coronary angioplasty implant and graft; Z79.82 Long term (current) use of aspirin; Z79.84 Long term (current) use of oral hypoglycemic drugs; Z79.899 Other long term (current) drug therapy; W01.0XXA Fall on same level from slipping, tripping and stumbling without subsequent striking against object, initial encounter; Y93.01 Activity, walking, marching and hiking; Y92.093 Driveway of other non-institutional residence as the place of occurrence of the external cause
CPT/HCPCS: 99283

== ENCOUNTER → 2018-03-23 | Outpatient (CLI) | payer MEDICARE, OTHER ==
--- NOTE | 2018-03-23 16:14 | XR ---
Right elbow HISTORY: Trauma and pain 2 views of the right elbow Bone mineralization, alignment are maintained. No fracture or dislocation. Mild arthropathy changes p resent, there is calcification at the insertion of the triceps tendon. No evident joint effusion. IMPRESSION: No acute fracture or dislocation. Follow-up as indicated.
== END | disposition home or self-care (01) ==
LOC: RADXRMAIN 15:43
PROVIDERS: ATTEND Physician Assistant
DX: M25.521 Pain in right elbow (principal)

== ENCOUNTER 2018-03-25 15:05 | Observation (INO) | payer MEDICARE, OTHER ==
[2018-03-25] MEDS ORDERED: SODIUM CHLORIDE 0.9% 1,000 ML IV STA (15:24)
[2018-03-25 15:49] LABS: Basophils % (A) 1 %; Eosinophils # (A) 0.1 k/uL (0-0.7); Eosinophils % (A) 1 %; HCT 41.6 % (39.0-53.0); HGB 13.8 gm/dL (13.0-17.5); Lymphocytes # (A) 1.2 k/uL (1.0-4.8); Lymphocytes % (A) 19 %; MCH 29.6 pg (25.0-35.0); MCHC 33.1 g/dL (31.0-37.0); MCV 89.5 fL (80.0-100.0); Mean Platelet Volume 7.2; Monocytes # (A) 0.4 k/uL (0-1.0); Monocytes % (A) 6 %; Neutrophils # (A) 4.5 k/uL (1.3-7.7); Neutrophils % (A) 71 %; Platelet Count 131 k/uL (150-450); RBC 4.65 m/uL (4.30-5.90); RDW 13.5 % (11.5-15.5); VBG PH 7.29 (7.31-7.41); WBC 6.4 k/uL (3.8-10.6)
[2018-03-25 16:03] LABS: D-Dimer <0.17 mg/L FEU (<0.60); INR 1.1 (<1.2); Partial Thromboplastin Time 24.4 sec (22.0-30.0); Prothrombin Time 10.5 sec (9.0-12.0)
[2018-03-25 16:09] LABS: Albumin 4.4 g/dL (3.5-5.0); Calcium 9.4 mg/dL (8.4-10.2); Creatine Kinase 101 U/L (55-170); Potassium 4.5 mmol/L (3.5-5.1); Total Bilirubin 0.6 mg/dL (0.2-1.3)
--- NOTE | 2018-03-25 16:10 | XR ---
EXAMINATION TYPE: XR chest 2V DATE OF EXAM: 03/25/2018 COMPARISON: 02/14/2018 INDICATION: Difficulty breathing, dyspnea TECHNIQUE: Frontal and lateral views of the chest are obtained. FINDINGS: The heart size is normal. The pulmonary vasculature is normal. The lungs are clear. Spondylosis is within the thoracic spine. IMPRESSION: 1. No acute pulmonary process.
[2018-03-25 16:20] LABS: Creatine Kinase MB 1.9 ng/mL (0.0-2.4); Troponin I <0.012 ng/mL (0.000-0.034)
--- NOTE | 2018-03-25 17:02 | ED ---
SOB HPI - General Chief Complaint: Shortness of Breath Stated Complaint: Light headed, lung problems Time Seen by Provider: 03/25/18 15:16 Source: patient Mode of arrival: ambulatory Limitations: no limitations - History of Present Illness Initial Comments: 72 years old male comes in with shortness of breath and right-sided chest pain, he felt few days ago he hurt right side of his chest he stated the pain. Gets worse with deep breaths, he denies any fever no chills he does cough up some phlegm. He was seen in Dr. Adamson's office today where his O2 sat was 86. He still complaining about the chest pain though more so chest pain is on the right side and now difficulty breathing , no abdominal pain no frequency urgency dysuria no symptoms of TIA or CVA - Related Data Home Medications Medication Instructions Recorded Confirmed Dicyclomine HCl 20 mg PO HS 05/24/14 03/25/18 Levothyroxine Sodium [Synthroid] 100 mcg PO DAILY 05/24/14 03/25/18 Omeprazole 40 mg PO DAILY 05/24/14 03/25/18 metFORMIN HCL 1,000 mg PO DAILY 05/24/14 03/25/18 Nortriptyline [Pamelor] 25 mg PO HS 02/23/15 03/25/18 Metoprolol Succinate (ER) [Toprol 100 mg PO DAILY 10/11/16 03/25/18 XL] Tamsulosin [Flomax] 0.4 mg PO HS 10/11/16 03/25/18 amLODIPine [Norvasc] 5 mg PO DAILY 10/11/16 03/25/18 Aspirin EC [Ecotrin Low Dose] 81 mg PO DAILY 12/26/16 03/25/18 Gabapentin [Neurontin] 100 mg PO HS 01/26/18 03/25/18 Isosorbide Mononitrate ER [Imdur] 30 mg PO DAILY 01/26/18 03/25/18 clonazePAM [KlonoPIN] 0.5 mg PO DAILY PRN 01/26/18 03/25/18 Previous Rx's Medication Instructions Recorded Acetaminophen Tab [Tylenol] 650 mg PO Q6HR PRN tab 02/17/18 Polyethylene Glycol 3350 [Miralax] 17 gm PO DAILY #527 gm 03/14/18 Allergies Allergy/AdvReac Type Severity Reaction Status Date / Time No Known Allergies Allergy Verified 03/25/18 16:05 Review of Systems ROS Statement: Those systems with pertinent positive or pertinent negative responses have been documented in the HPI. ROS Other: All systems not noted in ROS Statement are negative. 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 [facility], chronic intermittedt R lower abdominal pain with etiology unknown, NIDDM type II , BPH, rectal bleed, diverticulosis, kidney stones, pt denies any kidney disease other than stones."CHIPPED DISC" d/t faLL IN NOVEMBER Last Myocardial Infarction Date:: 2014 History of Any Multi-Drug Resistant Organisms: None Reported Past Surgical History: Adenoidectomy, Appendectomy, Cholecystectomy, Heart Catheterization With Stent, Hernia Repair, Orthopedic Surgery, Tonsillectomy Additional Past Surgical History / Comment(s): Bilateral carpal tunnel, bone spur removals to bilateral heels and FEET, X6 cardiac STENTS, RT KNEE BONE SPURS , CATARACTS JA with lens implants, JA INGUINAL HERNIA REPAIR AND UMBILLICAL. removal of malignant tumor from back,EGD 06-04-17, RT LEG SX FOR TORN LIGAMENT. "WAS BORN W/ OVERSIZED LIVER HAD SX TO REDUCE IT'S SIZE" Past Anesthesia/Blood Transfusion Reactions: No Reported Reaction Additional Past Anesthesia/Blood Transfusion Reaction / Comment(s): Pt states he has received blood in the past without reaction. Date of Last Stent Placement:: 2014 Past Psychological History: Depression Smoking Status: Never smoker Past Alcohol Use History: None Reported Past Drug Use History: None Reported - Past Family History Father Family Medical History: Myocardial Infarction ([place]) Additional Family Medical History / Comment(s): PTBA Mother Family Medical History: CVA/TIA, Diabetes Mellitus Additional Family Medical History / Comment(s): Mother of a CVA at the age of 82 yrs. Brother(s) Family Medical History: Cancer Additional Family Medical History / Comment(s): 2 brothers have MS General Exam - General Exam Comments Initial Comments: General: The patient is awake and alert, in no distress, and does not appear acutely ill. Skin: Skin is warm and dry and no rashes or lesions are noted. Eye: Pupils are equal, round and reactive to light, extra-ocular movements are intact; there is normal conjunctiva bilaterally. Ears, nose, mouth and throat: There are moist mucous membranes and no oral lesions. Neck: The neck is supple, there is no tenderness or JVD. Cardiovascular: There is a regular rate and rhythm. No murmur, rub or gallop is appreciated. Respiratory: To auscultation bilateral, decreased breath sounds bilateral, patient is tender to palpate over the right anterior chest Gastrointestinal: Soft, non-distended, non-tender abdomen without masses or organomegaly noted. There is no rebound or guarding present. Bowel sounds are unremarkable. Back: There is no tenderness to palpation in the midline. There is no obvious deformity. Musculoskeletal: Normal ROM, no tenderness, There is no pedal edema. There is no calf tenderness or swelling. No cords were appreciated. Neurological: CN II-XII intact, Cranial nerves III through XII are intact. There are no obvious motor or sensory deficits. Coordination appears grossly intact. Speech is normal. Psychiatric: Cooperative, appropriate mood & affect, normal judgment. Limitations: no limitations Course Vital Signs 03/25/18 15:10 Temperature 97.8 F Pulse Rate 82 Respiratory 18 Rate Blood Pressure 174/88 O2 Sat by Pulse 100 Oximetry During reassessment noticed itchy 7.29 pCO2 is 54 bicarb is 25) his creatinine is 1.60 troponin is negative I did see the EKG done in Dr. Adamson's office there was no STEMI there is some flattening of the T waves in couple of fleets, CBC is unremarkable d-dimer is unremarkable so his INR, considering his multiple risk factors his age is diabetic his hypertensive I plan to put him in the hospital for observation for 3 sets of cardiac markers and cardiology consult Medical Decision Making - Lab Data Result diagrams: 03/25/18 15:33 03/25/18 15:33 Lab Results 03/25/18 03/25/18 03/25/18 Range/Units 15:33 15:33 15:33 WBC 6.4 (3.8-10.6) k/uL RBC 4.65 (4.30-5.90) m/uL Hgb 13.8 (13.0-17.5) gm/dL Hct 41.6 (39.0-53.0) % MCV 89.5 (80.0-100.0) fL MCH 29.6 (25.0-35.0) pg MCHC 33.1 (31.0-37.0) g/dL RDW 13.5 (11.5-15.5) % Plt Count 131 L (150-450) k/uL Neutrophils % 71 % Lymphocytes % 19 % Monocytes % 6 % Eosinophils % 1 % Basophils % 1 % Neutrophils # 4.5 (1.3-7.7) k/uL Lymphocytes # 1.2 (1.0-4.8) k/uL Monocytes # 0.4 (0-1.0) k/uL Eosinophils # 0.1 (0-0.7) k/uL Basophils # 0.0 (0-0.2) k/uL PT (9.0-12.0) sec INR (<1.2) APTT (22.0-30.0) sec D-Dimer (<0.60) mg/L FEU VBG pH (7.31-7.41) VBG pCO2 (37-51) mmHg VBG HCO3 (24-28) mmol/L Sodium 142 (137-145) mmol/L Potassium 4.5 (3.5-5.1) mmol/L Chloride 104 (98-107) mmol/L Carbon Dioxide 24 (22-30) mmol/L Anion Gap 14 mmol/L BUN 27 H (9-20) mg/dL Creatinine 1.60 H (0.66-1.25) mg/dL Est GFR (CKD-EPI)AfAm 50 (>60 ml/min/1.73 sqM) Est GFR (CKD-EPI)NonAf 43 (>60 ml/min/1.73 sqM) Glucose 122 H (74-99) mg/dL Calcium 9.4 (8.4-10.2) mg/dL Total Bilirubin 0.6 (0.2-1.3) mg/dL AST 20 (17-59) U/L ALT 35 (21-72) U/L Alkaline Phosphatase 87 (38-126) U/L Total Creatine Kinase 101 (55-170) U/L CK-MB (CK-2) 1.9 (0.0-2.4) ng/mL CK-MB (CK-2) Rel Index 1.9 Troponin I <0.012 (0.000-0.034) ng/mL NT-Pro-B Natriuret Pep pg/mL Total Protein 7.0 (6.3-8.2) g/dL Albumin 4.4 (3.5-5.0) g/dL 03/25/18 03/25/18 03/25/18 Range/Units 15:33 15:33 15:33 WBC (3.8-10.6) k/uL RBC (4.30-5.90) m/uL Hgb (13.0-17.5) gm/dL Hct (39.0-53.0) % MCV (80.0-100.0) fL MCH (25.0-35.0) pg MCHC (31.0-37.0) g/dL RDW (11.5-15.5) % Plt Count (150-450) k/uL Neutrophils % % Lymphocytes % % Monocytes % % Eosinophils % % Basophils % % Neutrophils # (1.3-7.7) k/uL Lymphocytes # (1.0-4.8) k/uL Monocytes # (0-1.0) k/uL Eosinophils # (0-0.7) k/uL Basophils # (0-0.2) k/uL PT 10.5 (9.0-12.0) sec INR 1.1 (<1.2) APTT 24.4 (22.0-30.0) sec D-Dimer <0.17 (<0.60) mg/L FEU VBG pH 7.29 L (7.31-7.41) VBG pCO2 54 H (37-51) mmHg VBG HCO3 25 (24-28) mmol/L Sodium (137-145) mmol/L Potassium (3.5-5.1) mmol/L Chloride (98-107) mmol/L Carbon Dioxide (22-30) mmol/L Anion Gap mmol/L BUN (9-20) mg/dL Creatinine (0.66-1.25) mg/dL Est GFR (CKD-EPI)AfAm (>60 ml/min/1.73 sqM) Est GFR (CKD-EPI)NonAf (>60 ml/min/1.73 sqM) Glucose (74-99) mg/dL Calcium (8.4-10.2) mg/dL Total Bilirubin (0.2-1.3) mg/dL AST (17-59) U/L ALT (21-72) U/L Alkaline Phosphatase (38-126) U/L Total Creatine Kinase (55-170) U/L CK-MB (CK-2) (0.0-2.4) ng/mL CK-MB (CK-2) Rel Index Troponin I (0.000-0.034) ng/mL NT-Pro-B Natriuret Pep 42 pg/mL Total Protein (6.3-8.2) g/dL Albumin (3.5-5.0) g/dL Disposition Clinical Impression: Dyspnea, Chest pain Disposition: ADMITTED IP TO THIS HOSP Condition: Good Referrals: Micheal Adamson MD [Primary Care Provider] - 1-2 days
[2018-03-25] MEDS ORDERED: NITROGLYCERIN SL TABS 0.4 MG TAB SUBLINGUAL PRN (17:08)
[2018-03-25] MEDS ORDERED: MORPHINE SULFATE 4 MG/ML SYRINGE IV PRN (17:08)
[2018-03-25] MEDS ORDERED: ACETAMINOPHEN TAB 325 MG TAB PO PRN (17:13)
[2018-03-25] MEDS ORDERED: clonazePAM 0.5 MG TAB PO PRN (17:13)
[2018-03-25 18:57] LABS: Glucose,Whole Blood 128 mg/dL (75-99)
[2018-03-25 19:04] VITALS: BMI 30.6
[2018-03-25 20:03] LABS: Glucose,Whole Blood 158 mg/dL (75-99)
[2018-03-25] MEDS ORDERED: DICYCLOMINE 20 MG TAB PO SCH (21:00)
[2018-03-25] MEDS ORDERED: NORTRIPTYLINE 25 MG CAP PO SCH (21:00)
[2018-03-25] MEDS ORDERED: TAMSULOSIN 0.4 MG CAP.ER.24H PO SCH (21:00)
[2018-03-25] MEDS ORDERED: GABAPENTIN 100 MG CAP PO SCH (21:00)
[2018-03-25 21:33] LABS: Creatine Kinase 198 U/L (55-170)
[2018-03-25 21:46] LABS: Creatine Kinase MB 1.8 ng/mL (0.0-2.4); Troponin I <0.012 ng/mL (0.000-0.034)
[2018-03-26 04:25] LABS: Cholesterol 173 mg/dL (<200); HDL Cholesterol 39 mg/dL (40-60); LDL Cholesterol,Calculated 112 mg/dL (0-99); Triglycerides 108 mg/dL (<150)
[2018-03-26 04:27] LABS: Creatine Kinase 79 U/L (55-170)
[2018-03-26 04:41] LABS: Creatine Kinase MB 1.2 ng/mL (0.0-2.4); Troponin I <0.012 ng/mL (0.000-0.034)
[2018-03-26] MEDS ORDERED: LEVOTHYROXINE 100 MCG TAB PO SCH (06:30)
[2018-03-26 07:25] LABS: Glucose,Whole Blood 96 mg/dL (75-99)
[2018-03-26] MEDS ORDERED: PANTOPRAZOLE 40 MG TABLET PO SCH (07:30)
[2018-03-26 08:25] VITALS: RESP 18
[2018-03-26] MEDS ORDERED: ISOSORBIDE MONONITRATE ER 30 MG TAB.ER.24H PO SCH (09:00)
[2018-03-26] MEDS ORDERED: metFORMIN 500 MG TAB PO SCH (09:00)
[2018-03-26] MEDS ORDERED: ASPIRIN 325 MG TAB PO SCH (09:00)
[2018-03-26] MEDS ORDERED: POLYETHYLENE GLYCOL 3350 17 GM POWD.PACK PO SCH (09:00)
[2018-03-26] MEDS ORDERED: ASPIRIN 81 MG PO SCH (09:00)
[2018-03-26] MEDS ORDERED: METOPROLOL SUCCINATE (ER) 100 MG TAB.ER.24H PO SCH (09:00)
[2018-03-26] MEDS ORDERED: amLODIPine 5 MG TAB PO SCH (09:00)
--- NOTE | 2018-03-26 11:18 | P.CRDCN ---
History of Present Illness History of present illness: Mr. Ling is a pleasant 72-year-old male past medical history significant for coronary artery disease s/p angioplasty, diabetes mellitus, hypertension, gastroesophageal reflux disease and hypothyroidism. He follows with Dr. Hui in [place] and has also seen Dr. Hammer. We have been asked to see him in consultation for chest pain. He states he tripped and fell in his driveway yesterday and injured his right wrist. He tripped on some stones with his rubber boots and fell on the right side. He went to see his doctor in the office to have the right arm evaluated. While at his Dr.'s office he developed some pain in the right side of his chest that radiated across to the left. Denies associated shortness of breath, dizziness, palpitations, nausea, vomiting or diaphoresis. No radiation to the left arm, back, neck or jaw. The pain is reproducible on palpation and with movement. EKG reveals sinus mechanism with no acute ST or T-wave abnormalities. Chest xray negative for an acute cardiopulmonary process. Xrays of right wrist, shoulder and elbow is negative for any acute fracture. Laboratory data reviewed, hgb 13.8, platelets 131, d-dimer less than 0.17, sodium 142, potassium 4.5, creatinine 1.6, proBNP 42, cardiac enzymes negative 3. Current cardiac medications include aspirin 81 mg daily, Imdur 30 mg daily, Toprol-XL 100 mg daily, amlodipine 5 mg daily. He also takes metformin,, Klonopin, Flomax, MiraLAX, Pamelor, Synthroid, Neurontin, dicyclomine and Tylenol for pain. Most recent echocardiogram performed October 2017 reveals preserved left ventricular systolic function with ejection fraction 50-55%, mild aortic valve stenosis, mean gradient 10.96 mmHg, mild MR and mild TR. Review of Systems At the time of my exam: CONSTITUTIONAL: Denies fever. Denies chills. EYES: Denies blurred vision. Denies vision changes. Denies eye pain. EARS, NOSE, MOUTH & THROAT: Denies headache. Denies sore throat. Denies ear pain. CARDIOVASCULAR: Denies chest pain. Denies shortness of breath. Denies orthopnea. Denies PND. Denies palpitations. RESPIRATORY: Denies cough. GASTROINTESTINAL: Denies abdominal pain. Denies diarrhea. Denies constipation. Denies nausea. Denies vomiting. MUSCULOSKELETAL: Complains of pleuritic pain. INTEGUMENTARY: Denies pruitis. Denies rash. NEUROLOGIC: Denies numbness. Denies tingling. Denies weakness. PSYCHIATRIC: Denies anxiety. Denies depression. ENDOCRINE: Denies fatigue. Denies weight change. Denies polydipsia. Denies polyurina. GENITOURINARY: Denies burning, hematuria or urgency with micturation. HEMATOLOGIC: Denies history of anemia. Denies bleeding. 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 [facility], chronic intermittedt R lower abdominal pain with etiology unknown, NIDDM type II , BPH, rectal bleed, diverticulosis, kidney stones, pt denies any kidney disease other than stones."CHIPPED DISC" d/t faLL IN NOVEMBER Last Myocardial Infarction Date:: 2014 History of Any Multi-Drug Resistant Organisms: None Reported Past Surgical History: Adenoidectomy, Appendectomy, Cholecystectomy, Heart Catheterization With Stent, Hernia Repair, Orthopedic Surgery, Tonsillectomy Additional Past Surgical History / Comment(s): Bilateral carpal tunnel, bone spur removals to bilateral heels and FEET, X6 cardiac STENTS, RT KNEE BONE SPURS , CATARACTS JA with lens implants, JA INGUINAL HERNIA REPAIR AND UMBILLICAL. removal of malignant tumor from back,EGD 06-04-17, RT LEG SX FOR TORN LIGAMENT. "WAS BORN W/ OVERSIZED LIVER HAD SX TO REDUCE IT'S SIZE" Past Anesthesia/Blood Transfusion Reactions: No Reported Reaction Additional Past Anesthesia/Blood Transfusion Reaction / Comment(s): Pt states he has received blood in the past without reaction. Date of Last Stent Placement:: 2014 Past Psychological History: Depression Additional Psychological History / Comment(s): Pt states he has a brother who has MS, is in a wheelchair that lives with him.HAS A RAMP Pt is independent. 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 Smoking Status: Never smoker Past Alcohol Use History: None Reported Past Drug Use History: None Reported - Past Family History Father Family Medical History: Myocardial Infarction ([place]) Additional Family Medical History / Comment(s): PTBA Mother Family Medical History: CVA/TIA, Diabetes Mellitus Additional Family Medical History / Comment(s): Mother of a CVA at the age of 82 yrs. Brother(s) Family Medical History: Cancer Additional Family Medical History / Comment(s): 2 brothers have MS Medications and Allergies Home Medications Medication Instructions Recorded Confirmed Type Dicyclomine HCl 20 mg PO HS 05/24/14 03/25/18 History Levothyroxine Sodium [Synthroid] 100 mcg PO DAILY 05/24/14 03/25/18 History Omeprazole 40 mg PO DAILY 05/24/14 03/25/18 History metFORMIN HCL 1,000 mg PO DAILY 05/24/14 03/25/18 History Nortriptyline [Pamelor] 25 mg PO HS 02/23/15 03/25/18 History Metoprolol Succinate (ER) [Toprol 100 mg PO DAILY 10/11/16 03/25/18 History XL] Tamsulosin [Flomax] 0.4 mg PO HS 10/11/16 03/25/18 History amLODIPine [Norvasc] 5 mg PO DAILY 10/11/16 03/25/18 History Aspirin EC [Ecotrin Low Dose] 81 mg PO DAILY 12/26/16 03/25/18 History Gabapentin [Neurontin] 100 mg PO HS 01/26/18 03/25/18 History Isosorbide Mononitrate ER [Imdur] 30 mg PO DAILY 01/26/18 03/25/18 History clonazePAM [KlonoPIN] 0.5 mg PO DAILY PRN 01/26/18 03/25/18 History Acetaminophen Tab [Tylenol] 650 mg PO Q6HR PRN tab 02/17/18 03/25/18 Rx Polyethylene Glycol 3350 [Miralax] 17 gm PO DAILY #527 gm 03/14/18 03/25/18 Rx Allergies Allergy/AdvReac Type Severity Reaction Status Date / Time No Known Allergies Allergy Verified 03/25/18 16:05 Physical Exam Vitals: Vital Signs Temp Pulse Pulse Resp BP BP Pulse Ox 03/26/18 04:00 98.7 F 83 16 147/78 95 03/26/18 00:00 98.0 F 70 16 155/77 97 03/25/18 23:31 60 16 03/25/18 20:00 98.0 F 69 16 151/78 94 L 03/25/18 19:05 89 16 03/25/18 18:35 97.5 F L 65 18 161/75 99 03/25/18 17:55 97.7 F 68 18 135/88 98 03/25/18 15:10 97.8 F 82 18 174/88 100 Intake and Output 03/25/18 03/26/18 03/26/18 22:59 06:59 14:59 Other: Voiding Method Toilet Toilet # Voids 3 Weight 102.5 kg Blood pressure 151/69 heart rate 68 afebrile maintaining oxygen saturation on room air GENERAL: This is a 72-year-old male in no apparent distress at the time of my examination. HEENT: Head is atraumatic, normocephalic. Pupils are equal, round. Sclerae anicteric. Conjunctivae are clear. Mucous membranes of the mouth are moist. Neck is supple. There is no jugular venous distention. No carotid bruit is heard. LUNGS: Clear to auscultation no wheezes, rales or rhonchi. No chest wall tenderness is noted on palpation or with deep breathing. HEART: Regular rate and rhythm with systolic ejection murmur at the base, no rubs or gallops. S1 and S2 heard. ABDOMEN: Soft, nontender. Bowel sounds are heard. No organomegaly noted. EXTREMITIES: No evidence of peripheral edema and no calf tenderness noted. VASCULAR: Radial and dorsalis pedis pulses palpated, no evidence of clubbing. NEUROLOGIC: Patient is awake, alert and oriented x3. Results 03/25/18 15:33 03/25/18 15:33 Cardiac Enzymes 03/25/18 03/25/18 03/25/18 Range/Units 15:33 15:33 20:51 AST 20 (17-59) U/L CK-MB (CK-2) 1.9 1.8 (0.0-2.4) ng/mL Troponin I <0.012 <0.012 (0.000-0.034) ng/mL 03/26/18 Range/Units 03:42 AST (17-59) U/L CK-MB (CK-2) 1.2 (0.0-2.4) ng/mL Troponin I <0.012 (0.000-0.034) ng/mL Coagulation 03/25/18 Range/Units 15:33 PT 10.5 (9.0-12.0) sec APTT 24.4 (22.0-30.0) sec Lipids 03/26/18 Range/Units 03:42 Triglycerides 108 (<150) mg/dL Cholesterol 173 (<200) mg/dL HDL Cholesterol 39 L (40-60) mg/dL CBC 03/25/18 Range/Units 15:33 WBC 6.4 (3.8-10.6) k/uL RBC 4.65 (4.30-5.90) m/uL Hgb 13.8 (13.0-17.5) gm/dL Hct 41.6 (39.0-53.0) % Plt Count 131 L (150-450) k/uL Comprehensive Metabolic Panel 03/25/18 Range/Units 15:33 Sodium 142 (137-145) mmol/L Potassium 4.5 (3.5-5.1) mmol/L Chloride 104 (98-107) mmol/L Carbon Dioxide 24 (22-30) mmol/L BUN 27 H (9-20) mg/dL Creatinine 1.60 H (0.66-1.25) mg/dL Glucose 122 H (74-99) mg/dL Calcium 9.4 (8.4-10.2) mg/dL AST 20 (17-59) U/L ALT 35 (21-72) U/L Alkaline Phosphatase 87 (38-126) U/L Total Protein 7.0 (6.3-8.2) g/dL Albumin 4.4 (3.5-5.0) g/dL Current Medications Generic Name Dose Route Start Last Admin Trade Name Freq PRN Reason Stop Dose Admin Acetaminophen 650 mg 03/25/18 17:13 Tylenol Tab PO Q6HR PRN Fever and/ or MILD Pain Amlodipine Besylate 5 mg 03/26/18 09:00 Norvasc PO DAILY [facility] Aspirin 81 mg 03/26/18 09:00 Aspirin PO DAILY [facility] Clonazepam 0.5 mg 03/25/18 17:13 Klonopin PO DAILY PRN Anxiety Dicyclomine HCl 20 mg 03/25/18 21:00 03/25/18 19:48 Bentyl PO 20 mg HS JULIANA Administration Gabapentin 100 mg 03/25/18 21:00 03/25/18 19:48 Neurontin PO 100 mg HS JULIANA Administration Isosorbide Mononitrate 30 mg 03/26/18 09:00 Imdur PO DAILY [facility] Levothyroxine Sodium 100 mcg 03/26/18 06:30 03/26/18 05:49 Synthroid PO Not Given DAILY@0630 [facility] Metformin HCl 1,000 mg 03/26/18 09:00 Glucophage PO DAILY [facility] Metoprolol Succinate 100 mg 03/26/18 09:00 Toprol Xl PO DAILY [facility] Morphine Sulfate 4 mg 03/25/18 17:08 Morphine Sulfate (Inj) IV Q5M PRN Chest Pain Nitroglycerin 0.4 mg 03/25/18 17:08 Nitrostat SUBLINGUAL Q5M PRN Chest Pain Nortriptyline HCl 25 mg 03/25/18 21:00 03/25/18 19:49 Pamelor PO 25 mg HS JULIANA Administration Pantoprazole Sodium 40 mg 03/26/18 07:30 Protonix PO AC-BRKFST [facility] Polyethylene Glycol 17 gm 03/26/18 09:00 Miralax PO DAILY [facility] Tamsulosin HCl 0.4 mg 03/25/18 21:00 03/25/18 19:49 Flomax PO 0.4 mg HS JULIANA Administration Intake and Output 03/25/18 03/26/18 03/26/18 22:59 06:59 14:59 Other: Voiding Method Toilet Toilet # Voids 3 Weight 102.5 kg 03/25/18 15:33 03/25/18 15:33 Assessment and Plan Assessment: ASSESSMENT 1. Musculoskeletal chest pain status post mechanical fall 2. History of coronary artery disease with angioplasty 3. Hypertension 4. Aortic stenosis, mean gradient 10.96 mmHg PLAN Obtain x-ray of the ribs. Continue current medical management. No indication for cardiac etiology of pain. 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 Thank you kindly for this consultation. Nurse Practitioner note has been reviewed, I agree with a documented findings and plan of care. Patient was seen and examined.
[2018-03-26 11:46] VITALS: BP 158/83; PULSE 77; TEMP 98.5
[2018-03-26 12:27] LABS: Glucose,Whole Blood 146 mg/dL (75-99)
--- NOTE | 2018-03-26 12:36 | P.HPIM ---
History of Present Illness 72-year-old male presented to family physician with complaints of right-sided chest pain with shortness of breath increased pain with inspiration. Patient was evaluated by physician and made recommendations for evaluation emergency room. Patient had a recent fall 1 week ago complains of right shoulder right elbow right wrist pain. Patient does have history of coronary disease with WI and stents Review of Systems Cardiovascular: Reports chest pain Respiratory: Reports dyspnea Musculoskeletal: right: elbow pain, shoulder pain, wrist pain Past Medical History Past Medical History: Coronary Artery Disease (CAD), Cancer, Chest Pain / Angina , Diabetes Mellitus, GERD/Reflux, GI Bleed, Hypertension, Myocardial Infarction ([place]), Osteoarthritis (OA), Prostate Disorder, Renal Disease, Thyroid Disorder Additional Past Medical History / Comment(s): having abdominal pain and rectal bleeding,2014 diagnosed with bone cancer after found to have cancerous tumor on his back-removed and pt had chemo, 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 [facility], chronic intermittedt R lower abdominal pain with etiology unknown, NIDDM type II , BPH, rectal bleed, diverticulosis, kidney stones, pt denies any kidney disease other than stones."CHIPPED DISC" d/t faLL IN NOVEMBER Last Myocardial Infarction Date:: 2014 History of Any Multi-Drug Resistant Organisms: None Reported Past Surgical History: Adenoidectomy, Appendectomy, Cholecystectomy, Heart Catheterization With Stent, Hernia Repair, Orthopedic Surgery, Tonsillectomy Additional Past Surgical History / Comment(s): Bilateral carpal tunnel, bone spur removals to bilateral heels and FEET, X6 cardiac STENTS, RT KNEE BONE SPURS , CATARACTS JA with lens implants, JA INGUINAL HERNIA REPAIR AND UMBILLICAL. removal of malignant tumor from back,EGD 06-04-17, RT LEG SX FOR TORN LIGAMENT. "WAS BORN W/ OVERSIZED LIVER HAD SX TO REDUCE IT'S SIZE" Past Anesthesia/Blood Transfusion Reactions: No Reported Reaction Additional Past Anesthesia/Blood Transfusion Reaction / Comment(s): Pt states he has received blood in the past without reaction. Date of Last Stent Placement:: 2014 Past Psychological History: Depression Additional Psychological History / Comment(s): Pt states he has a brother who has MS, is in a wheelchair that lives with him.HAS A RAMP Pt is independent. 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 Smoking Status: Never smoker Past Alcohol Use History: None Reported Past Drug Use History: None Reported - Past Family History Father Family Medical History: Myocardial Infarction ([place]) Additional Family Medical History / Comment(s): PTBA Mother Family Medical History: CVA/TIA, Diabetes Mellitus Additional Family Medical History / Comment(s): Mother of a CVA at the age of 82 yrs. Brother(s) Family Medical History: Cancer Additional Family Medical History / Comment(s): 2 brothers have MS Medications and Allergies Home Medications Medication Instructions Recorded Confirmed Type Dicyclomine HCl 20 mg PO HS 05/24/14 03/25/18 History Levothyroxine Sodium [Synthroid] 100 mcg PO DAILY 05/24/14 03/25/18 History Omeprazole 40 mg PO DAILY 05/24/14 03/25/18 History metFORMIN HCL 1,000 mg PO DAILY 05/24/14 03/25/18 History Nortriptyline [Pamelor] 25 mg PO HS 02/23/15 03/25/18 History Metoprolol Succinate (ER) [Toprol 100 mg PO DAILY 10/11/16 03/25/18 History XL] Tamsulosin [Flomax] 0.4 mg PO HS 10/11/16 03/25/18 History amLODIPine [Norvasc] 5 mg PO DAILY 10/11/16 03/25/18 History Aspirin EC [Ecotrin Low Dose] 81 mg PO DAILY 12/26/16 03/25/18 History Gabapentin [Neurontin] 100 mg PO HS 01/26/18 03/25/18 History Isosorbide Mononitrate ER [Imdur] 30 mg PO DAILY 01/26/18 03/25/18 History clonazePAM [KlonoPIN] 0.5 mg PO DAILY PRN 01/26/18 03/25/18 History Acetaminophen Tab [Tylenol] 650 mg PO Q6HR PRN tab 02/17/18 03/25/18 Rx Polyethylene Glycol 3350 [Miralax] 17 gm PO DAILY #527 gm 03/14/18 03/25/18 Rx Allergies Allergy/AdvReac Type Severity Reaction Status Date / Time No Known Allergies Allergy Verified 03/25/18 16:05 Physical Exam Vitals: Vital Signs Temp Pulse Pulse Resp BP BP BP 03/26/18 11:45 98.5 F 77 18 158/83 03/26/18 07:40 97.6 F 68 18 151/69 03/26/18 04:00 98.7 F 83 16 147/78 03/26/18 00:00 98.0 F 70 16 155/77 03/25/18 23:31 60 16 03/25/18 20:00 98.0 F 69 16 151/78 03/25/18 19:05 89 16 03/25/18 18:35 97.5 F L 65 18 161/75 03/25/18 17:55 97.7 F 68 18 135/88 03/25/18 15:10 97.8 F 82 18 174/88 Pulse Ox 03/26/18 11:45 93 L 03/26/18 07:40 96 03/26/18 04:00 95 03/26/18 00:00 97 03/25/18 23:31 03/25/18 20:00 94 L 03/25/18 19:05 03/25/18 18:35 99 03/25/18 17:55 98 03/25/18 15:10 100 Intake and Output 03/25/18 03/26/18 03/26/18 22:59 06:59 14:59 Other: Voiding Method Toilet Toilet Toilet # Voids 3 Weight 102.5 kg - Constitutional General appearance: mild distress - EENT Eyes: PERRLA Ears: bilateral: normal - Neck Neck: normal ROM - Respiratory Respiratory: bilateral: CTA - Cardiovascular Rhythm: regular - Gastrointestinal General gastrointestinal: soft - Integumentary Integumentary: normal - Neurologic Neurologic: CNII-XII intact - Musculoskeletal Musculoskeletal: gait normal - Psychiatric Psychiatric: A&O x's 3, appropriate affect, intact judgment & insight Results CBC & Chem 7: 03/25/18 15:33 03/25/18 15:33 Labs: Abnormal Lab Results - Last 24 Hours (Table) 03/25/18 03/25/18 03/25/18 Range/Units 15:33 15:33 15:33 Plt Count 131 L (150-450) k/uL VBG pH 7.29 L (7.31-7.41) VBG pCO2 54 H (37-51) mmHg BUN 27 H (9-20) mg/dL Creatinine 1.60 H (0.66-1.25) mg/dL Glucose 122 H (74-99) mg/dL POC Glucose (mg/dL) (75-99) mg/dL Total Creatine Kinase (55-170) U/L LDL Cholesterol, Calc (0-99) mg/dL HDL Cholesterol (40-60) mg/dL 03/25/18 03/25/18 03/25/18 Range/Units 18:56 19:58 20:51 Plt Count (150-450) k/uL VBG pH (7.31-7.41) VBG pCO2 (37-51) mmHg BUN (9-20) mg/dL Creatinine (0.66-1.25) mg/dL Glucose (74-99) mg/dL POC Glucose (mg/dL) 128 H 158 H (75-99) mg/dL Total Creatine Kinase 198 H (55-170) U/L LDL Cholesterol, Calc (0-99) mg/dL HDL Cholesterol (40-60) mg/dL 03/26/18 03/26/18 Range/Units 03:42 12:08 Plt Count (150-450) k/uL VBG pH (7.31-7.41) VBG pCO2 (37-51) mmHg BUN (9-20) mg/dL Creatinine (0.66-1.25) mg/dL Glucose (74-99) mg/dL POC Glucose (mg/dL) 146 H (75-99) mg/dL Total Creatine Kinase (55-170) U/L LDL Cholesterol, Calc 112 H (0-99) mg/dL HDL Cholesterol 39 L (40-60) mg/dL Chest x-ray: report reviewed Thrombosis Risk Factor Assmnt - Choose All That Apply Each Risk Factor Represents 2 Points: Age 61-74 years Thrombosis Risk Factor Assessment Total Risk Factor Score: 2 Thrombosis Risk Factor Assessment Level: Low Risk Assessment and Plan Plan: Assessment Right-sided chest pain on exam patient denies any chest pain at this time Recent fall with right shoulder right elbow right wrist pain History of coronary disease with WI with stents Diabetes type 2 History of DVT GERD Hypertension History of renal disease Osteoarthritis Hypothyroidism Plan Cardiology consultation
--- NOTE | 2018-03-26 14:09 | P.DS ---
Providers Date of admission: 03/25/18 17:08 Expected date of discharge: 03/26/18 Attending physician: Micheal Adamson Consults: 03/25/18 17:08 Consult Physician Urgent Consulting Provider: Abhishek Patel Consult Reason/Comments: Chest pain Do you want consulting provider notified?: Yes Primary care physician: Micheal Adamson [facility] Course: 72-year-old male presented to family physician with complaints of right-sided chest pain. Patient has history of fall one week ago with right shoulder right elbow right wrist pain. Patient impulse oximetry of 86% in the office. Complained of pain with inspiration. After examination with physician a decision was made to send to the emergency room patient was then admitted for observation. Patient was examined by cardiology with diagnosis of chest contusion. Assessment the dyspnea chest pain right side chest pain is resolved at this time history of fall right shoulder right elbow right wrist pain history of coronary disease with MD was stent diabetes type II history of DVT history GERD hypertension renal disease osteoarthritis hypothyroidism Plan discharge home with follow up with family physician and cardiology Patient Condition at Discharge: Good Plan - Discharge Summary Discharge Rx Participant: No New Discharge Prescriptions: Continue metFORMIN HCL 1,000 mg PO DAILY Dicyclomine HCl 20 mg PO HS Levothyroxine Sodium [Synthroid] 100 mcg PO DAILY Omeprazole 40 mg PO DAILY Nortriptyline [Pamelor] 25 mg PO HS Tamsulosin [Flomax] 0.4 mg PO HS amLODIPine [Norvasc] 5 mg PO DAILY Metoprolol Succinate (ER) [Toprol XL] 100 mg PO DAILY Aspirin EC [Ecotrin Low Dose] 81 mg PO DAILY clonazePAM [KlonoPIN] 0.5 mg PO DAILY PRN PRN Reason: Anxiety Gabapentin [Neurontin] 100 mg PO HS Isosorbide Mononitrate ER [Imdur] 30 mg PO DAILY Acetaminophen Tab [Tylenol] 650 mg PO Q6HR PRN tab PRN Reason: Fever And/ Or Pain Polyethylene Glycol 3350 [Miralax] 17 gm PO DAILY #527 gm Discharge Medication List Dicyclomine HCl 20 mg PO HS 05/24/14 [History] Levothyroxine Sodium [Synthroid] 100 mcg PO DAILY 05/24/14 [History] Omeprazole 40 mg PO DAILY 05/24/14 [History] metFORMIN HCL 1,000 mg PO DAILY 05/24/14 [History] Nortriptyline [Pamelor] 25 mg PO HS 02/23/15 [History] Metoprolol Succinate (ER) [Toprol XL] 100 mg PO DAILY 10/11/16 [History] Tamsulosin [Flomax] 0.4 mg PO HS 10/11/16 [History] amLODIPine [Norvasc] 5 mg PO DAILY 10/11/16 [History] Aspirin EC [Ecotrin Low Dose] 81 mg PO DAILY 12/26/16 [History] Gabapentin [Neurontin] 100 mg PO HS 01/26/18 [History] Isosorbide Mononitrate ER [Imdur] 30 mg PO DAILY 01/26/18 [History] clonazePAM [KlonoPIN] 0.5 mg PO DAILY PRN 01/26/18 [History] Acetaminophen Tab [Tylenol] 650 mg PO Q6HR PRN tab 02/17/18 [Rx] Polyethylene Glycol 3350 [Miralax] 17 gm PO DAILY #527 gm 03/14/18 [Rx] Follow up Appointment(s)/Referral(s): Micheal Adamson MD [Primary Care Provider] - 1-2 days
[2018-03-26 14:16] LABS: Hemoglobin A1C 6.2 % (4.0-6.0)
--- NOTE | 2018-03-26 15:09 | XR ---
EXAMINATION TYPE: XR ribs bilateral DATE OF EXAM: 03/26/2018 COMPARISON: 03/25/2018 HISTORY: Pleuritic chest pain after fall TECHNIQUE: Frontal and oblique views of the bilateral ribs were obtained. FINDINGS: There is no acute displaced fracture of any of the bilateral ribs. No chronic healed fractu re deformity is appreciated. No pneumothorax is seen. Cholecystectomy clips reside within the right u pper quadrant. Costochondral calcifications are noted. Moderate degenerative changes of the thoracic spine are present. IMPRESSION: No evidence for acute displaced rib fracture.
== END 2018-03-26 14:50 | disposition home or self-care (01) ==
LOC: EC 15:05 → 3OBS 17:08
PROVIDERS: ADMIT Family Medicine; ATTEND Family Medicine
DX: R07.89 Other chest pain (principal); R06.00 Dyspnea, unspecified; I25.10 Atherosclerotic heart disease of native coronary artery without angina pectoris; I10 Essential (primary) hypertension; E11.9 Type 2 diabetes mellitus without complications; S20.219A Contusion of unspecified front wall of thorax, initial encounter; M25.511 Pain in right shoulder; M25.521 Pain in right elbow; M25.531 Pain in right wrist; K21.9 Gastro-esophageal reflux disease without esophagitis; N40.0 Benign prostatic hyperplasia without lower urinary tract symptoms; E03.9 Hypothyroidism, unspecified; K57.90 Diverticulosis of intestine, part unspecified, without perforation or abscess without bleeding; I35.0 Nonrheumatic aortic (valve) stenosis; M19.90 Unspecified osteoarthritis, unspecified site; F32.9 Major depressive disorder, single episode, unspecified; Z94.81 Bone marrow transplant status; Z95.5 Presence of coronary angioplasty implant and graft; W01.0XXA Fall on same level from slipping, tripping and stumbling without subsequent striking against object, initial encounter; Y92.014 Private driveway to single-family (private) house as the place of occurrence of the external cause; Z79.84 Long term (current) use of oral hypoglycemic drugs; Z79.82 Long term (current) use of aspirin; Z79.890 Hormone replacement therapy; Z79.899 Other long term (current) drug therapy; I25.2 Old myocardial infarction; Z92.21 Personal history of antineoplastic chemotherapy; Z85.830 Personal history of malignant neoplasm of bone; Z86.718 Personal history of other venous thrombosis and embolism; Z87.19 Personal history of other diseases of the digestive system; Z87.442 Personal history of urinary calculi; Z82.49 Family history of ischemic heart disease and other diseases of the circulatory system; Z83.3 Family history of diabetes mellitus; Z82.3 Family history of stroke; Z82.0 Family history of epilepsy and other diseases of the nervous system; Z80.9 Family history of malignant neoplasm, unspecified
CPT/HCPCS: 99285 ×2; 96360 ×2; 96361 ×7; 36415; 85379; 83880; 80061; 80053; 82550 ×2; 82553 ×2; 82803; 84484 ×2; 85025; 85610; 85730; 83036; 71110; 71046; G0378 ×2

== ENCOUNTER 2018-04-10 11:27 | Inpatient (IN) | payer MEDICARE, OTHER ==
[2018-04-10] MEDS ORDERED: NITROGLYCERIN OINT 1 INCH/GM PACKET TOPICAL STA (11:46)
[2018-04-10] MEDS ORDERED: LABETALOL 5 MG/ML VIAL MDV IVP STA (11:46)
--- NOTE | 2018-04-10 11:51 | ED ---
General Adult HPI - General Chief complaint: Chest Pain Stated complaint: Chest Pain Time Seen by Provider: 04/10/18 11:30 Source: patient, RN notes reviewed Mode of arrival: ambulatory Limitations: no limitations - History of Present Illness Initial comments: This is a 72-year-old male who presents emergency Department with a past medical history significant for 7 coronary artery stents diabetes hypertension high cholesterol. Patient states that about 2:30 this morning started having left-sided chest pain and right groin pain. Patient states after that he had pain in both legs to the point where it was difficult for him to walk and had to slide down the steps on his buttocks. Patient states the pain in the legs is somewhat subsided but the right groin pain continues as does the left chest pain. Patient states she is also made him somewhat short of breath. Patient denies any nausea but was diaphoretic earlier this morning. Patient denies any recent fever chills or cough. Patient denies headache patient denies numbness weakness. Patient denies any lightheadedness or dizziness. Patient denies any leg swelling or calf tenderness - Related Data Home Medications Medication Instructions Recorded Confirmed Dicyclomine HCl 20 mg PO DAILY 05/24/14 04/10/18 Levothyroxine Sodium [Synthroid] 100 mcg PO DAILY 05/24/14 04/10/18 Omeprazole 40 mg PO DAILY 05/24/14 04/10/18 metFORMIN HCL 1,000 mg PO DAILY 05/24/14 04/10/18 Nortriptyline [Pamelor] 25 mg PO HS 02/23/15 04/10/18 Metoprolol Succinate (ER) [Toprol 100 mg PO DAILY 10/11/16 04/10/18 XL] Tamsulosin [Flomax] 0.4 mg PO DAILY 10/11/16 04/10/18 amLODIPine [Norvasc] 5 mg PO DAILY 10/11/16 04/10/18 Aspirin EC [Ecotrin Low Dose] 81 mg PO DAILY 12/26/16 04/10/18 Gabapentin [Neurontin] 100 mg PO HS 01/26/18 04/10/18 Isosorbide Mononitrate ER [Imdur] 30 mg PO DAILY 01/26/18 04/10/18 clonazePAM [KlonoPIN] 0.5 mg PO DAILY PRN 03/26/18 06/08/18 Previous Rx's Medication Instructions Recorded Acetaminophen Tab [Tylenol] 650 mg PO Q6HR PRN tab 02/17/18 Allergies Allergy/AdvReac Type Severity Reaction Status Date / Time No Known Allergies Allergy Verified 04/10/18 11:58 Review of Systems ROS Statement: Those systems with pertinent positive or pertinent negative responses have been documented in the HPI. ROS Other: All systems not noted in ROS Statement are negative. 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 [facility], chronic intermittedt R lower abdominal pain with etiology unknown, NIDDM type II , BPH, rectal bleed, diverticulosis, kidney stones, pt denies any kidney disease other than stones."CHIPPED DISC" d/t faLL IN NOVEMBER Last Myocardial Infarction Date:: 2014 History of Any Multi-Drug Resistant Organisms: None Reported Past Surgical History: Adenoidectomy, Appendectomy, Cholecystectomy, Heart Catheterization With Stent, Hernia Repair, Orthopedic Surgery, Tonsillectomy Additional Past Surgical History / Comment(s): Bilateral carpal tunnel, bone spur removals to bilateral heels and FEET, X6 cardiac STENTS, RT KNEE BONE SPURS , CATARACTS JA with lens implants, JA INGUINAL HERNIA REPAIR AND UMBILLICAL. removal of malignant tumor from back,EGD 06-04-17, RT LEG SX FOR TORN LIGAMENT. "WAS BORN W/ OVERSIZED LIVER HAD SX TO REDUCE IT'S SIZE" Past Anesthesia/Blood Transfusion Reactions: No Reported Reaction Additional Past Anesthesia/Blood Transfusion Reaction / Comment(s): Pt states he has received blood in the past without reaction. Date of Last Stent Placement:: 2014 Past Psychological History: Depression Smoking Status: Never smoker Past Alcohol Use History: None Reported Past Drug Use History: None Reported - Past Family History Father Family Medical History: Myocardial Infarction ([place]) Additional Family Medical History / Comment(s): PTBA Mother Family Medical History: CVA/TIA, Diabetes Mellitus Additional Family Medical History / Comment(s): Mother of a CVA at the age of 82 yrs. Brother(s) Family Medical History: Cancer Additional Family Medical History / Comment(s): 2 brothers have MS General Exam - General Exam Comments Initial Comments: GENERAL: Patient is well-developed and well-nourished. Patient is nontoxic and well- hydrated and is in mild distress. ENT: Neck is soft and supple. No significant lymphadenopathy is noted. Oropharynx is clear. Moist mucous membranes. Neck has full range of motion without eliciting any pain. EYES: The sclera were anicteric and conjunctiva were pink and moist. Extraocular movements were intact and pupils were equal round and reactive to light. Eyelids were unremarkable. PULMONARY: Unlabored respirations. Good breath sounds bilaterally. No audible rales rhonchi or wheezing was noted. CARDIOVASCULAR: There is a regular rate and rhythm without any murmurs gallops or rubs. Femoral pulse on the right is weaker than the left ABDOMEN: Soft and nontender with normal bowel sounds. No palpable organomegaly was noted. There is no palpable pulsatile mass. SKIN: Skin is clear with no lesions or rashes and otherwise unremarkable. NEUROLOGIC: Patient is alert and oriented x3. Cranial nerves II through XII are grossly intact. Motor and sensory are also intact. Normal speech, volume and content. Symmetrical smile. . MUSCULOSKELETAL: Normal extremities with adequate strength and full range of motion. No lower extremity swelling or edema. No calf tenderness. LYMPHATICS: No significant lymphadenopathy is noted PSYCHIATRIC: Normal psychiatric evaluation. Normal interpersonal interactions appears functionally intact in deals appropriately with others. No signs of depression. No signs of anxiety. Limitations: no limitations Course Vital Signs 04/10/18 04/10/18 04/10/18 11:34 11:56 12:06 Temperature 98 F Pulse Rate 100 Pulse Rate [ 108 H Left Brachial] Pulse Rate [ 102 H Left Popliteal] Pulse Rate [ 107 H Right Brachial] Pulse Rate [ 100 Right Popliteal ] Respiratory 20 Rate Blood Pressure 167/103 167/98 Blood Pressure 188/102 [Left Arm] Blood Pressure 218/105 [Left Calf] Blood Pressure 189/106 [Right Arm] Blood Pressure 216/112 [Right Calf] O2 Sat by Pulse 93 L Oximetry Medical Decision Making - Medical Decision Making EKG shows normal sinus rhythm at 89 bpm NV interval is 152 QRS is 94 is 370 QTC is 459. Patient's EKG shows some slight ST segment depression in V4 V5 and V6. Patient also has some slight ST segment depression in leads 2 and aVF Patient's chest x-ray showed no acute normalities. Patient's CT of the thoracic and abdominal aorta showed no acute abnormality. I started the patient on heparin once the aortogram was normal. Patient continues to have bilateral leg pain which is unexplained. I spoke to the [facility] admitted the patient I wrote admitting orders I consult to cardiology continued heparin and aspirin and Nitropaste on the floor. - Lab Data Result diagrams: 04/10/18 11:53 04/10/18 11:53 Lab Results 04/10/18 04/10/18 04/10/18 Range/Units 11:53 11:53 11:53 WBC 5.4 (3.8-10.6) k/uL RBC 4.94 (4.30-5.90) m/uL Hgb 15.1 (13.0-17.5) gm/dL Hct 44.5 (39.0-53.0) % MCV 90.1 (80.0-100.0) fL MCH 30.5 (25.0-35.0) pg MCHC 33.9 (31.0-37.0) g/dL RDW 13.9 (11.5-15.5) % Plt Count 136 L (150-450) k/uL Neutrophils % 70 % Lymphocytes % 18 % Monocytes % 8 % Eosinophils % 1 % Basophils % 0 % Neutrophils # 3.8 (1.3-7.7) k/uL Lymphocytes # 1.0 (1.0-4.8) k/uL Monocytes # 0.4 (0-1.0) k/uL Eosinophils # 0.1 (0-0.7) k/uL Basophils # 0.0 (0-0.2) k/uL PT (9.0-12.0) sec INR (<1.2) APTT (22.0-30.0) sec Sodium 143 (137-145) mmol/L Potassium 3.9 (3.5-5.1) mmol/L Chloride 104 (98-107) mmol/L Carbon Dioxide 23 (22-30) mmol/L Anion Gap 16 mmol/L BUN 22 H (9-20) mg/dL Creatinine 1.47 H (0.66-1.25) mg/dL Est GFR (CKD-EPI)AfAm 55 (>60 ml/min/1.73 sqM) Est GFR (CKD-EPI)NonAf 48 (>60 ml/min/1.73 sqM) Glucose 118 H (74-99) mg/dL Calcium 9.8 (8.4-10.2) mg/dL Magnesium 1.7 (1.6-2.3) mg/dL Total Bilirubin 0.8 (0.2-1.3) mg/dL AST 28 (17-59) U/L ALT 32 (21-72) U/L Alkaline Phosphatase 81 (38-126) U/L Total Creatine Kinase 221 H (55-170) U/L CK-MB (CK-2) 3.3 H* (0.0-2.4) ng/mL CK-MB (CK-2) Rel Index 1.5 Troponin I <0.012 (0.000-0.034) ng/mL Total Protein 7.4 (6.3-8.2) g/dL Albumin 4.7 (3.5-5.0) g/dL 04/10/18 Range/Units 11:53 WBC (3.8-10.6) k/uL RBC (4.30-5.90) m/uL Hgb (13.0-17.5) gm/dL Hct (39.0-53.0) % MCV (80.0-100.0) fL MCH (25.0-35.0) pg MCHC (31.0-37.0) g/dL RDW (11.5-15.5) % Plt Count (150-450) k/uL Neutrophils % % Lymphocytes % % Monocytes % % Eosinophils % % Basophils % % Neutrophils # (1.3-7.7) k/uL Lymphocytes # (1.0-4.8) k/uL Monocytes # (0-1.0) k/uL Eosinophils # (0-0.7) k/uL Basophils # (0-0.2) k/uL PT 11.1 (9.0-12.0) sec INR 1.1 (<1.2) APTT 24.5 (22.0-30.0) sec Sodium (137-145) mmol/L Potassium (3.5-5.1) mmol/L Chloride (98-107) mmol/L Carbon Dioxide (22-30) mmol/L Anion Gap mmol/L BUN (9-20) mg/dL Creatinine (0.66-1.25) mg/dL Est GFR (CKD-EPI)AfAm (>60 ml/min/1.73 sqM) Est GFR (CKD-EPI)NonAf (>60 ml/min/1.73 sqM) Glucose (74-99) mg/dL Calcium (8.4-10.2) mg/dL Magnesium (1.6-2.3) mg/dL Total Bilirubin (0.2-1.3) mg/dL AST (17-59) U/L ALT (21-72) U/L Alkaline Phosphatase (38-126) U/L Total Creatine Kinase (55-170) U/L CK-MB (CK-2) (0.0-2.4) ng/mL CK-MB (CK-2) Rel Index Troponin I (0.000-0.034) ng/mL Total Protein (6.3-8.2) g/dL Albumin (3.5-5.0) g/dL Critical Care Time Critical Care Time: Yes Total Critical Care Time: 35 Disposition Clinical Impression: Unstable angina, Bilateral leg pain, Hypertension Disposition: ADMITTED IP TO THIS [facility] Referrals: Micheal Adamson MD [Primary Care Provider] - 1-2 days Time of Disposition: 13:21
[2018-04-10 12:03] LABS: Basophils % (A) 0 %; Eosinophils # (A) 0.1 k/uL (0-0.7); Eosinophils % (A) 1 %; HCT 44.5 % (39.0-53.0); HGB 15.1 gm/dL (13.0-17.5); Lymphocytes % (A) 18 %; MCH 30.5 pg (25.0-35.0); MCHC 33.9 g/dL (31.0-37.0); MCV 90.1 fL (80.0-100.0); Mean Platelet Volume 6.9; Monocytes # (A) 0.4 k/uL (0-1.0); Monocytes % (A) 8 %; Neutrophils # (A) 3.8 k/uL (1.3-7.7); Neutrophils % (A) 70 %; Platelet Count 136 k/uL (150-450); RBC 4.94 m/uL (4.30-5.90); RDW 13.9 % (11.5-15.5); WBC 5.4 k/uL (3.8-10.6)
[2018-04-10 12:14] LABS: Albumin 4.7 g/dL (3.5-5.0); Calcium 9.8 mg/dL (8.4-10.2); Magnesium 1.7 mg/dL (1.6-2.3); Potassium 3.9 mmol/L (3.5-5.1); Total Bilirubin 0.8 mg/dL (0.2-1.3); Total Protein 7.4 g/dL (6.3-8.2)
[2018-04-10 12:25] LABS: INR 1.1 (<1.2); Partial Thromboplastin Time 24.5 sec (22.0-30.0); Prothrombin Time 11.1 sec (9.0-12.0)
[2018-04-10 12:27] LABS: Creatine Kinase 221 U/L (55-170)
[2018-04-10 12:39] LABS: Troponin I <0.012 ng/mL (0.000-0.034)
[2018-04-10 12:40] LABS: Creatine Kinase MB 3.3 ng/mL (0.0-2.4)
--- NOTE | 2018-04-10 12:58 | CT ---
EXAMINATION TYPE: CT angio thoracic/abd aorta DATE OF EXAM: 04/10/2018 COMPARISON: 02/14/2018 HISTORY: chest pain CT DLP: 2389 mGycm, Automated exposure control for dose reduction was used. CONTRAST: Performed injected with 100 mL of Isovue 370. TECHNIQUE: Axial images were obtained at 5 mm thick sections. Reconstructed images are reviewed on t he computer in the coronal plane. FINDINGS: Portion of the thyroid visualized is normal. No suspicious lung nodules or focal infiltrates are present. No enlarged mediastinal or hilar adenopathy is evident. The ascending aorta diameter at the level o f the main pulmonary artery is 4.2 cm. The main pulmonary artery diameter at the bifurcation is 2.7 cm. Coronary artery calcifications present. CT abdomen: CT sections are obtained through the abdomen. Abdomen is essentially unremarkable. Liver spleen pancreas adrenal glands at this phase of contrast. Normal. Small cortical renal cyst too small to classify as simple measures 1.2 cm and -11 Hounsfield units. Aorta appears unremarkable. Iliac ve ssels and branches appear normal. The prostate is prominent contains calcification may has some infer ior impression on the urinary bladder. No free fluid is within the pelvis. Loops of bowel without con trast are unremarkable. CTA: Three-D reconstructed images performed separately on the [employer] computer by the technologist temi reaves reviewed. The ascending thoracic aorta aortic arch and descending thoracic aorta taper normally. There is aneur ysmal dilatation of 4.2 cm at the level the main pulmonary artery are noted. The abdominal aorta tape rs normally through its visualized course. The common iliac arteries appear unremarkable. Internal an d external iliac vessels are evident. The common femoral arteries are unremarkable. No dissection is evident. IMPRESSIONS: 1. There is some fusiform aneurysmal dilatation of the ascending thoracic aorta measuring 4.2 cm at t he level of the main pulmonary artery. 2. No dissection or aneurysm elsewhere within the visualized aorta of the thorax or abdomen.
[2018-04-10] MEDS ORDERED: MORPHINE SULFATE 2 MG/ML SYRINGE IVP STA (13:05)
[2018-04-10] MEDS ORDERED: ASPIRIN 81 MG PO STA (13:11)
[2018-04-10] MEDS ORDERED: HEPARIN SODIUM,PORCINE 5,000 UNIT/ML 1 ML VIAL IV ONE (13:11)
[2018-04-10] MEDS ORDERED: NITROGLYCERIN SL TABS 0.4 MG TAB SUBLINGUAL PRN (13:21)
[2018-04-10] MEDS: HEPARIN SODIUM,PORCINE/D5W PMX 25,000 UNIT in DEXTROSE/WATER 1 500ML.BAG IV SCH (13:57)
--- NOTE | 2018-04-10 16:54 | CONS ---
CONSULTATION CHIEF COMPLAINT: Chest pain. Conrad is a 72-year-old gentleman with recurrent hospitalizations within the last few months. Comes into hospital complaining of chest pain, arm pain, leg pain. The patient was evaluated with similar symptomatology on February 14 by me and again on March [address] Cisse. He was discharged home on the and comes back in complaining of symptoms in multiple places. He has also had abdominal discomfort in the past. He has known coronary artery disease and apparently had prior angioplasty. Sees a retail sales advisor at [facility] and also had seen Dr. VC Hammer in this town. The patient has history of cancer, status post chemotherapy and bone transplant. At the time of my evaluation, patient appears comfortable at rest and is free of symptoms. EKG does not reveal acute ischemic changes. He has had 1 set of troponin that is negative. CT scan of the chest that is shows aneurysmal dilatation of the aorta, but there is no evidence of dissection and the aneurysm measures about 4.2 cm. PAST MEDICAL HISTORY: Significant for hypertension, hypothyroidism, [id number] diabetes. MEDICATIONS: At home included aspirin, Tylenol, metformin, Flomax, omeprazole, Toprol-XL, Synthroid, Imdur, Neurontin, Klonopin, Norvasc. ALLERGIES: There are no known drug allergies. FAMILY HISTORY: Negative for premature coronary artery disease. SOCIAL HISTORY: Negative for current smoking, EtOH abuse, or drug abuse. REVIEW OF SYSTEMS: HEENT is unremarkable. CARDIAC: As described above. RESPIRATORY: Negative. GI: Negative. ALLERGY/IMMUNOLOGY: Negative. MUSCULOSKELETAL: Significant for arthritis. PSYCHOSOCIAL: Negative. ENDOCRINE/HEMATOLOGICAL: Negative. DERM: Negative. CONSTITUTIONAL: Negative. ONCOLOGICAL: Negative. The rest of the system review is not relevant. EXAM: Comfortable at rest. Heart rate is around 100 to 110 beats per minute. Blood pressure is 178/90, respirations 18. There is no jugular venous distention. Carotid upstroke is diminished. There is no bruit. Chest exam reveals diminished air entry at the bases heart exam reveals first and second heart sounds. No gallop. No murmur. No rub. Abdomen is soft, nontender. Exam of extremities did not reveal edema. Peripheral pulses are felt. EKG shows sinus rhythm with nonspecific ST-T wave changes. The patient had an echocardiogram in October of this year that shows normal LV function. ASSESSMENT: 1. Chest pain, rule out myocardial infarction. 2. Coronary artery disease, status post angioplasty. 3. Uncontrolled hypertension. 4. Descending aortic aneurysm. PLAN: 1. Will obtain another set of troponin to rule out myocardial infarction. Once that is done we can stop the heparin. 2. Obtain a 2D echo to document his LV function. 3. Will optimally control his blood pressure by resuming his home medications. MMODL / IJN: [id number] /
[2018-04-10] MEDS: amLODIPine 5 MG TAB PO SCH (17:08)
[2018-04-10 17:30] LABS: Glucose,Whole Blood 119 mg/dL (75-99)
[2018-04-10] MEDS ORDERED: ACETAMINOPHEN TAB 325 MG TAB PO PRN (17:59)
[2018-04-10] MEDS ORDERED: clonazePAM 0.5 MG TAB PO PRN (17:59)
[2018-04-10] MEDS ORDERED: NITROGLYCERIN OINT 1 INCH/GM PACKET TOPICAL SCH (18:00)
[2018-04-10 18:13] LABS: Creatine Kinase 188 U/L (55-170)
[2018-04-10 18:27] LABS: Creatine Kinase MB 2.4 ng/mL (0.0-2.4); Troponin I <0.012 ng/mL (0.000-0.034)
--- NOTE | 2018-04-10 19:05 | XR ---
EXAMINATION TYPE: XR Hip Complete RT DATE OF EXAM: 04/10/2018 COMPARISON: 12/01/2014 HISTORY: Chronic right hip pain TECHNIQUE: 2 views FINDINGS: Proximal femur and hip joint appear intact. There is minimal acetabular spurring. Sacroilia c joints appear normal. IMPRESSION: Negative right hip exam. No change.
[2018-04-10] MEDS: ISOSORBIDE MONONITRATE ER 30 MG TAB.ER.24H PO SCH (19:15)
[2018-04-10 20:59] LABS: Glucose,Whole Blood 139 mg/dL (75-99)
[2018-04-10] MEDS: NORTRIPTYLINE 25 MG CAP PO SCH (21:15)
[2018-04-10] MEDS: GABAPENTIN 100 MG CAP PO SCH (21:15)
[2018-04-10 22:44] VITALS: RESP 18
[2018-04-10 23:55] LABS: Creatine Kinase 142 U/L (55-170)
[2018-04-11 00:08] LABS: Creatine Kinase MB 2.3 ng/mL (0.0-2.4); Troponin I <0.012 ng/mL (0.000-0.034)
--- NOTE | 2018-04-11 00:30 | P.HPIM ---
History of Present Illness H&P Date: 04/10/18 Chief Complaint: Chest pain Edward nava is a 72-year-old male with a known history of coronary artery disease status post stent placement 7 as per patient, diabetes type 2, hypertension and GERD and hypothyroidism came to ER with complaints of left-sided chest pain started around 2:30 in the morning. Chest pain is mainly midsternal left- sided. Denied any radiation associated with some shortness of breath. No headache or dizziness. No nausea vomiting or diaphoresis. Patient is also complaining of right groin pain. Patient has is her groin pain for a long time and gets worse sometimes. Patient follows with his primary care physician and pain improves with pain medications usually. Patient otherwise denied any recent fever or chills. No cough is from production. Patient denies headache patient denies numbness weakness. Patient denies any lightheadedness or dizziness. Patient denies any leg swelling or calf tenderness EKG reveals sinus mechanism with no acute ST or T-wave abnormalities. Patient was recently admitted to the hospital with complaints of chest pain and acute coronary syndrome was ruled out at that time. Most recent echocardiogram performed October 2017 reveals preserved left ventricular systolic function with ejection fraction 50-55%, mild aortic valve stenosis, mean gradient 10.96 mmHg, mild MR and mild TR. CT thorax showed there is aneurysmal dilatation of the ascending aorta measuring 4.2 cm at the level of the main pulmonary artery. No dissection or aneurysm as well as noted in the aorta. Right hip x-ray showed minimal acetabular spurring. EKG showed sinus rhythm. Troponin 3 negative Review of Systems Constitutional: Patient denies any fever or chills . No generalized weakness or weight loss. Abdomen: Patient denied nausea vomiting and diarrhea and abdominal pain. Cardiovascular: Patient does have chest pain and mild short of breath. No leg swelling Respiratory: patient denied any cough is from production. No shortness of breath Neurologic: Patient denied any numbness or tingling headache. Musculoskeletal: Right groin pain. Patient denies any complaints of joint swelling or deformity. Skin: Negative Psychiatric: Negative Endocrine: No heat or cold intolerance. No recent weight gain. Genitourinary: No dysuria or hematuria. 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 [facility], chronic intermittedt R lower abdominal pain with etiology unknown, NIDDM type II , BPH, rectal bleed, diverticulosis, kidney stones, pt denies any kidney disease other than stones."CHIPPED DISC" d/t faLL IN NOVEMBER Last Myocardial Infarction Date:: 2014 History of Any Multi-Drug Resistant Organisms: None Reported Past Surgical History: Adenoidectomy, Appendectomy, Cholecystectomy, Heart Catheterization With Stent, Hernia Repair, Orthopedic Surgery, Tonsillectomy Additional Past Surgical History / Comment(s): Bilateral carpal tunnel, bone spur removals to bilateral heels and FEET, X6 cardiac STENTS, RT KNEE BONE SPURS , CATARACTS JA with lens implants, JA INGUINAL HERNIA REPAIR AND UMBILLICAL. removal of malignant tumor from back,EGD 06-04-17, RT LEG SX FOR TORN LIGAMENT. "WAS BORN W/ OVERSIZED LIVER HAD SX TO REDUCE IT'S SIZE" Past Anesthesia/Blood Transfusion Reactions: No Reported Reaction Additional Past Anesthesia/Blood Transfusion Reaction / Comment(s): Pt states he has received blood in the past without reaction. Date of Last Stent Placement:: 2014 Smoking Status: Never smoker - Past Family History Father Family Medical History: Myocardial Infarction ([place]) Additional Family Medical History / Comment(s): PTBA Mother Family Medical History: CVA/TIA, Diabetes Mellitus Additional Family Medical History / Comment(s): Mother of a CVA at the age of 82 yrs. Brother(s) Family Medical History: Cancer Additional Family Medical History / Comment(s): 2 brothers have MS Medications and Allergies Home Medications Medication Instructions Recorded Confirmed Type Dicyclomine HCl 20 mg PO DAILY 05/24/14 04/10/18 History Levothyroxine Sodium [Synthroid] 100 mcg PO DAILY 05/24/14 04/10/18 History Omeprazole 40 mg PO DAILY 05/24/14 04/10/18 History metFORMIN HCL 1,000 mg PO DAILY 05/24/14 04/10/18 History Nortriptyline [Pamelor] 25 mg PO HS 02/23/15 04/10/18 History Metoprolol Succinate (ER) [Toprol 100 mg PO DAILY 10/11/16 04/10/18 History XL] Tamsulosin [Flomax] 0.4 mg PO DAILY 10/11/16 04/10/18 History amLODIPine [Norvasc] 5 mg PO DAILY 10/11/16 04/10/18 History Aspirin EC [Ecotrin Low Dose] 81 mg PO DAILY 12/26/16 04/10/18 History Gabapentin [Neurontin] 100 mg PO HS 01/26/18 04/10/18 History Isosorbide Mononitrate ER [Imdur] 30 mg PO DAILY 01/26/18 04/10/18 History clonazePAM [KlonoPIN] 0.5 mg PO DAILY PRN 01/26/18 04/10/18 History Acetaminophen Tab [Tylenol] 650 mg PO Q6HR PRN tab 02/17/18 04/10/18 Rx Allergies Allergy/AdvReac Type Severity Reaction Status Date / Time No Known Allergies Allergy Verified 04/10/18 11:58 Physical Exam Vitals: Vital Signs Temp Pulse Pulse Pulse Pulse Pulse Resp 04/10/18 15:32 97.8 F 102 H 16 04/10/18 13:51 98 04/10/18 13:21 100 04/10/18 12:51 96 04/10/18 12:06 108 H 102 H 107 H 100 04/10/18 11:56 04/10/18 11:34 98 F 100 20 BP BP BP BP BP Pulse Ox 04/10/18 15:32 159/92 96 04/10/18 13:51 178/90 97 04/10/18 13:21 167/82 96 04/10/18 12:51 158/83 96 04/10/18 12:06 188/102 218/105 189/106 216/112 04/10/18 11:56 167/98 04/10/18 11:34 167/103 93 L Intake and Output 04/10/18 04/10/18 04/10/18 06:59 14:59 22:59 Other: Weight 100.698 kg PHYSICAL EXAMINATION: Patient is lying in the bed comfortably, no acute distress, awake alert and oriented.. HEENT: Normocephalic. Neck is supple. Pupils reactive. Nostrils clear. Oral cavity is moist. Ears reveal no drainage. Neck reveals no JVD, carotid bruits, or thyromegaly. CHEST EXAMINATION: Trachea is central. Symmetrical expansion. Lung sellers clear to auscultation and percussion. CARDIAC: Normal S1, S2 with no gallops. No murmurs ABDOMEN: Soft. Bowel sounds normal. No organomegaly. No abdominal bruits. Extremities: reveal no edema. No clubbing or cyanosis Neurologically awake, alert, oriented x3 with well-coordinated movements. No focal deficits noted Skin: No rash or skin lesions. Psychiatric: Coperative. Nonsuicidal Musculoskeletal: No joint swelling or deformity. Normal range of motion. Results CBC & Chem 7: 04/10/18 11:53 04/10/18 11:53 Labs: Abnormal Lab Results - Last 24 Hours (Table) 04/10/18 04/10/18 04/10/18 Range/Units 11:53 11:53 11:53 Plt Count 136 L (150-450) k/uL BUN 22 H (9-20) mg/dL Creatinine 1.47 H (0.66-1.25) mg/dL Glucose 118 H (74-99) mg/dL POC Glucose (mg/dL) (75-99) mg/dL Total Creatine Kinase 221 H (55-170) U/L CK-MB (CK-2) 3.3 H* (0.0-2.4) ng/mL 04/10/18 Range/Units 17:17 Plt Count (150-450) k/uL BUN (9-20) mg/dL Creatinine (0.66-1.25) mg/dL Glucose (74-99) mg/dL POC Glucose (mg/dL) 119 H (75-99) mg/dL Total Creatine Kinase (55-170) U/L CK-MB (CK-2) (0.0-2.4) ng/mL Thrombosis Risk Factor Assmnt - DVT/VTE Prophylaxis DVT/VTE Prophylaxis: Pharmacologic Prophylaxis ordered Assessment and Plan Assessment: Chest pain. Rule out acute coronary syndrome Hypertensive urgency on admission History of coronary artery disease status post multiple stents in the past Right groin pain. Possible hip joint pain Diabetes type 2 GERD Hypertension BPH History of bone cancer in the back status post chemotherapy and bone marrow transplant Chronic kidney disease stage III Bilateral carpal tunnel surgery. DVT prophylaxis Osteoarthritis Plan: Patient will be continued on telemetry monitoring. Serial EKGs and troponins. Patient was started back on his home medications. Blood pressure is trending down this time. We will continue the home medications and follow closely. Cardiology is on board. 2-D echo was ordered. Further recommendations based on the clinical course. We'll continue to follow closely. Time with Patient: Greater than 30
[2018-04-11 04:06] LABS: Cholesterol 189 mg/dL (<200); HDL Cholesterol 52 mg/dL (40-60); LDL Cholesterol,Calculated 119 mg/dL (0-99); Triglycerides 88 mg/dL (<150)
[2018-04-11] MEDS: HEPARIN SODIUM,PORCINE/D5W PMX 25,000 UNIT in DEXTROSE/WATER 1 500ML.BAG IV SCH (04:29)
[2018-04-11 06:03] LABS: Glucose,Whole Blood 151 mg/dL (75-99)
[2018-04-11] MEDS: LEVOTHYROXINE 100 MCG TAB PO SCH (06:14)
[2018-04-11] MEDS: PANTOPRAZOLE 40 MG TABLET PO SCH (06:15)
[2018-04-11] MEDS: amLODIPine 5 MG TAB PO SCH (07:36)
[2018-04-11] MEDS: ASPIRIN 325 MG TAB PO SCH (07:36)
[2018-04-11] MEDS: DICYCLOMINE 20 MG TAB PO SCH (07:36)
[2018-04-11] MEDS: ISOSORBIDE MONONITRATE ER 30 MG TAB.ER.24H PO SCH (07:36)
[2018-04-11] MEDS: metFORMIN 500 MG TAB PO SCH (07:37)
[2018-04-11] MEDS: TAMSULOSIN 0.4 MG CAP.ER.24H PO SCH (07:37)
[2018-04-11] MEDS: METOPROLOL SUCCINATE (ER) 100 MG TAB.ER.24H PO SCH (07:37)
--- NOTE | 2018-04-11 11:06 | P.PN ---
Subjective Progress Note Date: 04/11/18 This is a 72-year-old gentleman who presented to the hospital with symptoms of chest pain, arm pain, and leg pain. Patient was seen in consultation by Dr. Manuel, he has a known history of coronary artery disease with prior angioplasty, follows with a graphic artist at [facility]. Has history of cancer status post chemotherapy and bone transplant, hypertension, diabetes, hyperlipidemia, hypothyroidism. 3 troponins were negative. Blood pressure this morning 134/70. Echocardiogram with Doppler study has been requested and is yet pending. Objective - Vital Signs Vital signs: Vital Signs Temp 97.8 F 04/11/18 07:51 Pulse 109 H 04/11/18 07:51 Resp 18 04/11/18 07:51 BP 134/76 04/11/18 07:51 Pulse Ox 97 04/11/18 07:51 Intake & Output 04/10/18 04/11/18 04/11/18 18:59 06:59 18:59 Intake Total 582.033 240 Balance 582.033 240 Weight 100.698 kg 99.1 kg Intake: IV 10 0.9 10 Intake, IV Titration 332.033 Amount Heparin Sodium,Porcine/ 332.033 D5w Pmx 25,000 unit In Dextrose/Water 1 500ml. bag @ 9.931 UNITS/KG/HR 20 mls/hr IV .Q24H [facility] Rx #:[id number] Oral 240 240 Other: Voiding Method Toilet Urinal - Exam PHYSICAL EXAMINATION: GENERAL: 72-year-old gentleman in no apparent distress at the time of my examination HEENT: Head is atraumatic, normocephalic. Pupils equal, round. Sclera anicteric. Conjunctiva are clear. Mucous membranes of the mouth are moist. Neck is supple. There is no elevated jugular venous pressure.] bruit is heard. HEART EXAMINATION: Heart S1, S2 normal. No murmur or gallop heard. CHEST EXAMINATION: Lungs are clear to auscultation and precussion. No chest wall tenderness is noted on palpation or with deep breathing. ABDOMEN: Soft, nontender. Bowel sounds are heard. No organomegaly noted. EXTREMITIES: 2+ peripheral pulses with no evidence of peripheral edema and no calf tenderness noted. NEUROLOGIC patient is awake, alert and oriented -3. . - Labs CBC & Chem 7: 04/10/18 11:53 06/08/18 11:53 Labs: Abnormal Lab Results - Last 24 Hours (Table) 04/10/18 04/10/18 04/10/18 Range/Units 11:53 11:53 11:53 Plt Count 136 L (150-450) k/uL APTT (22.0-30.0) sec BUN 22 H (9-20) mg/dL Creatinine 1.47 H (0.66-1.25) mg/dL Glucose 118 H (74-99) mg/dL POC Glucose (mg/dL) (75-99) mg/dL Total Creatine Kinase 221 H (55-170) U/L CK-MB (CK-2) 3.3 H* (0.0-2.4) ng/mL LDL Cholesterol, Calc (0-99) mg/dL 04/10/18 04/10/18 04/10/18 Range/Units 17:13 17:17 20:55 Plt Count (150-450) k/uL APTT 36.2 H (22.0-30.0) sec BUN (9-20) mg/dL Creatinine (0.66-1.25) mg/dL Glucose (74-99) mg/dL POC Glucose (mg/dL) 119 H (75-99) mg/dL Total Creatine Kinase 188 H (55-170) U/L CK-MB (CK-2) (0.0-2.4) ng/mL LDL Cholesterol, Calc (0-99) mg/dL 04/10/18 04/11/18 04/11/18 Range/Units 20:58 03:29 06:01 Plt Count (150-450) k/uL APTT (22.0-30.0) sec BUN (9-20) mg/dL Creatinine (0.66-1.25) mg/dL Glucose (74-99) mg/dL POC Glucose (mg/dL) 139 H 151 H (75-99) mg/dL Total Creatine Kinase (55-170) U/L CK-MB (CK-2) (0.0-2.4) ng/mL LDL Cholesterol, Calc 119 H (0-99) mg/dL Assessment and Plan Plan: Assessment and plan #1 chest pain, troponins negative 3. Echocardiogram with Doppler study remains pending. #2 known history of coronary artery disease with prior PCI #3 uncontrolled hypertension #4 diabetes # 5 hyperlipidemia #6 descending aortic aneurysm Plan Review the echocardiogram with Doppler study. Blood pressure today is under much better control. Continue current medications. DNP note has been reviewed, I agree with a documented findings and plan of care. Patient was seen and examined.
[2018-04-11 11:33] LABS: Glucose,Whole Blood 126 mg/dL (75-99)
--- NOTE | 2018-04-11 14:49 | ECHOF ---
Referral Reason:chest pain MEASUREMENTS -------- HEIGHT: 182.9 cm WEIGHT: 98.9 kg BP: 134/76 RVIDd: 2.9 cm (< 3.3) IVSd: 1.2 cm (0.6 - 1.1) LVIDd: 3.9 cm (3.9 - 5.3) LVPWd: 1.2 cm (0.6 - 1.1) IVSs: 1.8 cm LVIDs: 2.7 cm LVPWs: 1.7 cm LA Diam: 3.5 cm (2.7 - 3.8) LAESV Index (A-L): 22.08 ml/m Ao Diam: 3.4 cm (2.0 - 3.7) AV Cusp: 1.6 cm (1.5 - 2.6) MV EXCURSION: 11.063 mm (> 18.000) MV EF SLOPE: 12 mm/s (70 - 150) EPSS: 0.7 cm MV E Ever: 0.61 m/s MV DecT: 327 ms MV A Ever: 1.04 m/s MV E/A Ratio: 0.58 AV maxP.28 mmHg AV meanP.58 mmHg AR PHT: 976 ms FINDINGS -------- Sinus rhythm. This was a technically adequate study. The left ventricular size is normal. There is borderline concentric left ventricular hypertrophy. Overall left ventricular systolic function is normal with, an EF between 55 - 60 %. The right ventricle is normal in size. Normal LA size by volume 22+/-6 ml/m2. The right atrium is normal in size. There is mild to moderate aortic valve sclerosis. Trace to mild aortic regurgitation. There is mi ld aortic stenosis present. Peak/mean gradient across the Aortic Valve is 18.28mmHg / 9.58mmHg. The mitral valve leaflets are mildly thickened. Mild mitral annular calcification present. The tricuspid valve appears structurally normal. There is no pulmonic regurgitation present. The aortic root size is normal. Normal inferior vena cava with normal inspiratory collapse consistent with estimated right atrial pre ssure of 5 mmHg. There is no pericardial effusion. CONCLUSIONS -------- 1. Sinus rhythm. 2. This was a technically adequate study. 3. The left ventricular size is normal. 4. There is borderline concentric left ventricular hypertrophy. 5. Overall left ventricular systolic function is normal with, an EF between 55 - 60 %. 6. The right ventricle is normal in size. 7. Normal LA size by volume 22+/-6 ml/m2. 8. The right atrium is normal in size. 9. There is mild to moderate aortic valve sclerosis. 10. Trace to mild aortic regurgitation. 11. There is mild aortic stenosis present. 12. Peak/mean gradient across the Aortic Valve is 18.28mmHg / 9.58mmHg. 13. The mitral valve leaflets are mildly thickened. 14. Mild mitral annular calcification present. 15. The tricuspid valve appears structurally normal. 16. There is no pulmonic regurgitation present. 17. The aortic root size is normal. 18. Normal inferior vena cava with normal inspiratory collapse consistent with estimated right atrial pressure of 5 mmHg. 19. There is no pericardial effusion. MASSOTHERAPIST: Caryn Zarco RDCS
[2018-04-11] MEDS ORDERED: KETOROLAC 30 MG/ML 1 ML VIAL IVP ONE (15:52)
[2018-04-11 17:12] LABS: Glucose,Whole Blood 118 mg/dL (75-99)
[2018-04-11] MEDS: GABAPENTIN 100 MG CAP PO SCH (20:05)
[2018-04-11] MEDS: NORTRIPTYLINE 25 MG CAP PO SCH (20:05)
[2018-04-11 20:48] LABS: Glucose,Whole Blood 112 mg/dL (75-99)
--- NOTE | 2018-04-12 00:10 | P.PN ---
Subjective Progress Note Date: 04/11/18 Principal diagnosis: Chest pain Patient is a 72-year-old male with a known history of coronary artery disease status post stent placement 7 as per patient, diabetes type 2, hypertension and GERD and hypothyroidism came to ER with complaints of left-sided chest pain started around 2:30 in the morning. Chest pain is mainly midsternal left- sided. Denied any radiation associated with some shortness of breath. No headache or dizziness. No nausea vomiting or diaphoresis. Patient is also complaining of right groin pain. Patient has is her groin pain for a long time and gets worse sometimes. Patient follows with his primary care physician and pain improves with pain medications usually. Patient otherwise denied any recent fever or chills. No cough is from production. Patient denies headache patient denies numbness weakness. Patient denies any lightheadedness or dizziness. Patient denies any leg swelling or calf tenderness EKG reveals sinus mechanism with no acute ST or T-wave abnormalities. Patient was recently admitted to the hospital with complaints of chest pain and acute coronary syndrome was ruled out at that time. Most recent echocardiogram performed October 2017 reveals preserved left ventricular systolic function with ejection fraction 50-55%, mild aortic valve stenosis, mean gradient 10.96 mmHg, mild MR and mild TR. CT thorax showed there is aneurysmal dilatation of the ascending aorta measuring 4.2 cm at the level of the main pulmonary artery. No dissection or aneurysm as well as noted in the aorta. Right hip x-ray showed minimal acetabular spurring. EKG showed sinus rhythm. Troponin 3 negative Objective - Vital Signs Vital signs: Vital Signs Temp 98.4 F 04/11/18 20:00 Pulse 78 04/11/18 20:00 Resp 18 04/11/18 20:00 BP 135/73 04/11/18 20:00 Pulse Ox 96 04/11/18 20:00 Intake & Output 04/11/18 04/11/18 04/12/18 06:59 18:59 06:59 Intake Total 582.033 600 Balance 582.033 600 Weight 99.1 kg Intake: IV 10 0.9 10 Intake, IV Titration 332.033 Amount Heparin Sodium,Porcine/ 332.033 D5w Pmx 25,000 unit In Dextrose/Water 1 500ml. bag @ 9.931 UNITS/KG/HR 20 mls/hr IV .Q24H [facility] Rx #:[id number] Oral 240 600 Other: Voiding Method Toilet Toilet Urinal Urinal - Exam PHYSICAL EXAMINATION: Patient is lying in the bed comfortably, no acute distress, awake alert and oriented.. HEENT: Normocephalic. Neck is supple. Pupils reactive. Nostrils clear. Oral cavity is moist. Ears reveal no drainage. Neck reveals no JVD, carotid bruits, or thyromegaly. CHEST EXAMINATION: Trachea is central. Symmetrical expansion. Lung sellers clear to auscultation and percussion. CARDIAC: Normal S1, S2 with no gallops. No murmurs ABDOMEN: Soft. Bowel sounds normal. No organomegaly. No abdominal bruits. Extremities: reveal no edema. No clubbing or cyanosis Neurologically awake, alert, oriented x3 with well-coordinated movements. No focal deficits noted Skin: No rash or skin lesions. Psychiatric: Coperative. Nonsuicidal Musculoskeletal: No joint swelling or deformity. Patient does have right groin tenderness. Decreased range of motion. - Labs CBC & Chem 7: 04/10/18 11:53 04/10/18 11:53 Labs: Abnormal Lab Results - Last 24 Hours (Table) 04/11/18 04/11/18 04/11/18 Range/Units 03:29 06:01 10:40 APTT 50.6 H (22.0-30.0) sec POC Glucose (mg/dL) 151 H (75-99) mg/dL LDL Cholesterol, Calc 119 H (0-99) mg/dL 04/11/18 04/11/18 04/11/18 Range/Units 11:20 16:43 20:46 APTT (22.0-30.0) sec POC Glucose (mg/dL) 126 H 118 H 112 H (75-99) mg/dL LDL Cholesterol, Calc (0-99) mg/dL Assessment and Plan Assessment: Chest pain. Ruled out acute coronary syndrome. Hypertensive urgency on admission History of coronary artery disease status post multiple stents in the past Acute on Chronic Right groin pain. Possible hip joint pain. Orthopedic evaluation. Diabetes type 2 GERD Hypertension BPH History of bone cancer in the back status post chemotherapy and bone marrow transplant Chronic kidney disease stage III Bilateral carpal tunnel surgery. DVT prophylaxis Osteoarthritis Plan: Patient will be continued on telemetry monitoring. Serial EKGs and troponins were negative. 2-D echo showed normal ejection fraction. Patient was started back on his home medications. Blood pressure is better controlled now. Cardiology recommends outpatient follow-up. Otherwise patient is still complaining of right groin pain and difficulty walking. Orthopedics was consulted for further evaluation. Right groin/hip x-ray showed no changes.. We will continue the home medications and follow closely. Further recommendations based on the clinical course. Time with Patient: Greater than 30
[2018-04-12 06:18] LABS: Glucose,Whole Blood 108 mg/dL (75-99)
[2018-04-12] MEDS: LEVOTHYROXINE 100 MCG TAB PO SCH (06:22)
[2018-04-12] MEDS: PANTOPRAZOLE 40 MG TABLET PO SCH (06:22)
[2018-04-12] MEDS: amLODIPine 5 MG TAB PO SCH (08:34)
[2018-04-12] MEDS: METOPROLOL SUCCINATE (ER) 100 MG TAB.ER.24H PO SCH (08:35)
[2018-04-12] MEDS: DICYCLOMINE 20 MG TAB PO SCH (08:35)
[2018-04-12] MEDS: ISOSORBIDE MONONITRATE ER 30 MG TAB.ER.24H PO SCH (08:35)
[2018-04-12] MEDS: TAMSULOSIN 0.4 MG CAP.ER.24H PO SCH (08:35)
[2018-04-12] MEDS: ASPIRIN 325 MG TAB PO SCH (08:35)
[2018-04-12] MEDS: metFORMIN 500 MG TAB PO SCH (08:35)
[2018-04-12 11:15] LABS: Glucose,Whole Blood 100 mg/dL (75-99)
--- NOTE | 2018-04-12 11:17 | P.CNOR ---
History of Present Illness - [facility] Consult date: 04/12/18 Consult reason: other (Right groin pain) History of present illness: The patient is a 72-year-old male who presented to the hospital 2 days ago with chest pain and bilateral leg pain. The patient was experiencing right groin pain and we were consulted for further evaluation of his right hip. The patient states that he does have a history of low back pain and is currently seeing pain management in the hospital for epidural injections this week. He has had previous MRIs that have showed multilevel spondylolisis and degenerative disc disease. He states that he is also experiencing low abdominal pain today. He states that he has not had a bowel movement since last Friday but is passing gas. Today, the patient states that his right groin pain has not improved since admission. He denies fever, chills, rigors, abdominal pain, shortness breath, chest pain this morning. Review of Systems Constitutional: Denies chills, Denies fatigue, Denies fever Cardiovascular: Denies chest pain, Denies shortness of breath Respiratory: Denies cough Gastrointestinal: Reports abdominal pain, Reports constipation, Denies diarrhea , Denies nausea, Denies vomiting Genitourinary: Denies dysuria Musculoskeletal: Reports low back pain Musculoskeletal: bilateral: hip pain (bilateral groin pain) Past Medical History Past Medical History: Coronary Artery Disease (CAD), Cancer, Chest Pain / Angina , Diabetes Mellitus, GERD/Reflux, GI Bleed, Hypertension, Myocardial Infarction ([place]), Osteoarthritis (OA), Prostate Disorder, Thyroid Disorder Additional Past Medical History / Comment(s): having abdominal pain and rectal bleeding,2014 diagnosed with bone cancer after found to have cancerous tumor on his back-removed and pt had chemo, 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 [facility], chronic intermittedt R lower abdominal pain with etiology unknown, NIDDM type II , BPH, rectal bleed, diverticulosis, kidney stones, pt denies any kidney disease other than stones."CHIPPED DISC" d/t faLL IN NOVEMBER Last Myocardial Infarction Date:: 2014 History of Any Multi-Drug Resistant Organisms: None Reported Past Surgical History: Adenoidectomy, Appendectomy, Cholecystectomy, Heart Catheterization With Stent, Hernia Repair, Orthopedic Surgery, Tonsillectomy Additional Past Surgical History / Comment(s): Bilateral carpal tunnel, bone spur removals to bilateral heels and FEET, X6 cardiac STENTS, RT KNEE BONE SPURS , CATARACTS JA with lens implants, JA INGUINAL HERNIA REPAIR AND UMBILLICAL. removal of malignant tumor from back,EGD 06-04-17, RT LEG SX FOR TORN LIGAMENT. "WAS BORN W/ OVERSIZED LIVER HAD SX TO REDUCE IT'S SIZE" Past Anesthesia/Blood Transfusion Reactions: No Reported Reaction Additional Past Anesthesia/Blood Transfusion Reaction / Comm: Pt states he has received blood in the past without reaction. Date of Last Stent Placement:: 2014 Smoking Status: Never smoker - Past Family History Father Family Medical History: Myocardial Infarction ([place]) Additional Family Medical History / Comment(s): PTBA Mother Family Medical History: CVA/TIA, Diabetes Mellitus Additional Family Medical History / Comment(s): Mother of a CVA at the age of 82 yrs. Brother(s) Family Medical History: Cancer Additional Family Medical History / Comment(s): 2 brothers have MS Medications and Allergies Home Medications Medication Instructions Recorded Confirmed Type Dicyclomine HCl 20 mg PO DAILY 05/24/14 04/10/18 History Levothyroxine Sodium [Synthroid] 100 mcg PO DAILY 05/24/14 04/10/18 History Omeprazole 40 mg PO DAILY 05/24/14 04/10/18 History metFORMIN HCL 1,000 mg PO DAILY 05/24/14 04/10/18 History Nortriptyline [Pamelor] 25 mg PO HS 02/23/15 04/10/18 History Metoprolol Succinate (ER) [Toprol 100 mg PO DAILY 10/11/16 04/10/18 History XL] Tamsulosin [Flomax] 0.4 mg PO DAILY 10/11/16 04/10/18 History amLODIPine [Norvasc] 5 mg PO DAILY 10/11/16 04/10/18 History Aspirin EC [Ecotrin Low Dose] 81 mg PO DAILY 12/26/16 04/10/18 History Gabapentin [Neurontin] 100 mg PO HS 01/26/18 04/10/18 History Isosorbide Mononitrate ER [Imdur] 30 mg PO DAILY 01/26/18 04/10/18 History clonazePAM [KlonoPIN] 0.5 mg PO DAILY PRN 01/26/18 04/10/18 History Acetaminophen Tab [Tylenol] 650 mg PO Q6HR PRN tab 02/17/18 04/10/18 Rx Allergies Allergy/AdvReac Type Severity Reaction Status Date / Time No Known Allergies Allergy Verified 04/10/18 11:58 Physical Examination The patient is a 72-year-old male who is in no acute distress. He is alert and oriented 3. Exam of the right lower extremity reveals no obvious deformity or pain upon range of motion. The hip was put through full range of motion with internal and external rotation without significant pain. Straight leg raise was negative. There is no pain to the right lateral hip there is pain to the groin upon palpation. There is also pain to the left groin upon palpation. The patient does have pain on palpation to the lower abdomen on both the right lower and left lower quadrants. Patient's abdomen is soft. There is mild guarding upon palpation. Bilateral knees are nontender. Bilateral calves are soft and nontender. He has good foot and ankle motion without difficulty. No neurological deficits noted. Circulatory status is intact. Results - Labs Labs: Abnormal Lab Results - Last 24 Hours (Table) 04/11/18 04/11/18 04/11/18 Range/Units 10:40 11:20 16:43 APTT 50.6 H (22.0-30.0) sec POC Glucose (mg/dL) 126 H 118 H (75-99) mg/dL 04/11/18 04/12/18 Range/Units 20:46 06:16 APTT (22.0-30.0) sec POC Glucose (mg/dL) 112 H 108 H (75-99) mg/dL H & H 04/10/18 Range/Units 11:53 Hgb 15.1 (13.0-17.5) gm/dL Hct 44.5 (39.0-53.0) % Coagulation 04/10/18 Range/Units 11:53 INR 1.1 (<1.2) Result Diagrams: 04/10/18 11:53 04/10/18 11:53 - Diagnostic results Hip x-ray: image reviewed (Mild spurring present overall no acute fractures or dislocations seen.) Assessment and Plan (1) Right groin pain Current Visit: Yes Status: Acute Code(s): R10.31 - RIGHT LOWER QUADRANT PAIN SNOMED Code(s): 308402457 Plan: The clinical and x-ray findings were discussed with the patient. The case was also discussed with Dr. Reynaga. We are recommending the patient follow-up with pain management for his lower back issues to proceed with epidural injections as needed. It was discussed with nursing staff that he may need to have a bowel movement or his abdominal pain explored further. We do not suspect any right hip joint issues at this time. The bilateral groin pain is most likely referred either from his lower back or abdomen. We will sign off at this time but would reevaluate the patient in the future if needed.
[2018-04-12 11:47] VITALS: BP 135/73; PULSE 68; TEMP 98.1
--- NOTE | 2018-04-13 00:12 | P.DS ---
Providers Date of admission: 04/10/18 13:33 Expected date of discharge: 04/12/18 Attending physician: Elisa Blanc Consults: 04/10/18 13:21 Consult Physician Urgent Consulting Provider: [facility] Consult Reason/Comments: Unstable angina Do you want consulting provider notified?: Yes 04/11/18 15:53 Consult Physician Routine Consulting Provider: Lavelle Reynaga Consult Reason/Comments: R hip pain Do you want consulting provider notified?: Yes Primary care physician: Micheal Adamson Hospital Course: Discharge diagnosis Chest pain. Ruled out acute coronary syndrome. Hypertensive urgency on admission History of coronary artery disease status post multiple stents in the past Acute on Chronic Right groin pain. Possible hip joint pain versus constipation. No intervention needed Orthopedic evaluation. Diabetes type 2 GERD Hypertension BPH History of bone cancer in the back status post chemotherapy and bone marrow transplant Chronic kidney disease stage III Bilateral carpal tunnel surgery. DVT prophylaxis Osteoarthritis Hospital course Patient is a 72-year-old male with a known history of coronary artery disease status post stent placement 7 as per patient, diabetes type 2, hypertension and GERD and hypothyroidism came to ER with complaints of left-sided chest pain started around 2:30 in the morning. Chest pain is mainly midsternal left- sided. Denied any radiation associated with some shortness of breath. No headache or dizziness. No nausea vomiting or diaphoresis. Patient is also complaining of right groin pain. Patient has is her groin pain for a long time and gets worse sometimes. Patient follows with his primary care physician and pain improves with pain medications usually. Patient otherwise denied any recent fever or chills. No cough is from production. Patient denies headache patient denies numbness weakness. Patient denies any lightheadedness or dizziness. Patient denies any leg swelling or calf tenderness EKG reveals sinus mechanism with no acute ST or T-wave abnormalities. Patient was recently admitted to the hospital with complaints of chest pain and acute coronary syndrome was ruled out at that time. Most recent echocardiogram performed October 2017 reveals preserved left ventricular systolic function with ejection fraction 50-55%, mild aortic valve stenosis, mean gradient 10.96 mmHg, mild MR and mild TR. CT thorax showed there is aneurysmal dilatation of the ascending aorta measuring 4.2 cm at the level of the main pulmonary artery. No dissection or aneurysm as well as noted in the aorta. Right hip x-ray showed minimal acetabular spurring. EKG showed sinus rhythm. Troponin 3 negative 04/12/2018 Patient was seen by orthopedics and thinks no abnormality with the right hip. Right groin pain is resolved today. No complaints of chest pressure. Breath. Patient is stable to be discharged home and follow with orthopedic clinic for further evaluation. Plan: Patient was continued on telemetry monitoring. Serial EKGs and troponins were negative. 2-D echo showed normal ejection fraction. Patient was started back on his home medications. Blood pressure is better controlled now. Cardiology recommends outpatient follow-up. Otherwise patient is still complaining of right groin pain and difficulty walking. Orthopedics has seen the patient and recommended no intervention at this time. No abdominal bruit with the right hip.. Right groin/hip x-ray showed no changes.. He pain improved with pain medications and recommended to follow as outpatient. Otherwise patient is stable to be discharged home. Discharge physical examination was done and vitals reviewed Vital Signs - 24 hr 04/12/18 04/12/18 04/12/18 04:00 08:00 11:26 Temperature 98.6 F 98.4 F Pulse Rate [ 70 66 66 Pulse Oximetery ] Respiratory 18 18 Rate Blood Pressure 115/66 126/72 [Right Arm] O2 Sat by Pulse 96 95 Oximetry 04/12/18 11:46 Temperature 98.1 F Pulse Rate [ 68 Pulse Oximetery ] Respiratory 18 Rate Blood Pressure 135/73 [Right Arm] O2 Sat by Pulse 99 Oximetry Patient Condition at Discharge: Stable Plan - Discharge Summary Discharge Rx Participant: No New Discharge Prescriptions: New Polyethylene Glycol 3350 [Miralax] 17 gm PO DAILY PRN #7 packet PRN Reason: Constipation Continue metFORMIN HCL 1,000 mg PO DAILY Dicyclomine HCl 20 mg PO DAILY Levothyroxine Sodium [Synthroid] 100 mcg PO DAILY Omeprazole 40 mg PO DAILY Nortriptyline [Pamelor] 25 mg PO HS Tamsulosin [Flomax] 0.4 mg PO DAILY amLODIPine [Norvasc] 5 mg PO DAILY Metoprolol Succinate (ER) [Toprol XL] 100 mg PO DAILY Aspirin EC [Ecotrin Low Dose] 81 mg PO DAILY clonazePAM [KlonoPIN] 0.5 mg PO DAILY PRN PRN Reason: Anxiety Gabapentin [Neurontin] 100 mg PO HS Isosorbide Mononitrate ER [Imdur] 30 mg PO DAILY Acetaminophen Tab [Tylenol] 650 mg PO Q6HR PRN tab PRN Reason: Fever And/ Or Pain Discharge Medication List Dicyclomine HCl 20 mg PO DAILY 05/24/14 [History] Levothyroxine Sodium [Synthroid] 100 mcg PO DAILY 05/24/14 [History] Omeprazole 40 mg PO DAILY 05/24/14 [History] metFORMIN HCL 1,000 mg PO DAILY 05/24/14 [History] Nortriptyline [Pamelor] 25 mg PO HS 02/23/15 [History] Metoprolol Succinate (ER) [Toprol XL] 100 mg PO DAILY 10/11/16 [History] Tamsulosin [Flomax] 0.4 mg PO DAILY 10/11/16 [History] amLODIPine [Norvasc] 5 mg PO DAILY 10/11/16 [History] Aspirin EC [Ecotrin Low Dose] 81 mg PO DAILY 12/26/16 [History] Gabapentin [Neurontin] 100 mg PO HS 01/26/18 [History] Isosorbide Mononitrate ER [Imdur] 30 mg PO DAILY 01/26/18 [History] clonazePAM [KlonoPIN] 0.5 mg PO DAILY PRN 01/26/18 [History] Acetaminophen Tab [Tylenol] 650 mg PO Q6HR PRN tab 02/17/18 [Rx] Polyethylene Glycol 3350 [Miralax] 17 gm PO DAILY PRN #7 packet 04/12/18 [Rx] Follow up Appointment(s)/Referral(s): Micheal Adamson MD [Primary Care Provider] - 1-2 days (office closed - please call to make appointment) Patient Instructions/Handouts: Angina (DC), Chronic Hypertension (DC) Discharge Disposition: HOME SELF-CARE
== END 2018-04-12 13:30 | disposition home or self-care (01) | DRG 313 ==
LOC: EC 11:27 → 6SEL 13:33
PROVIDERS: ADMIT Hospitalist; ATTEND Hospitalist
DX: R07.89 Other chest pain (principal); Z94.81 Bone marrow transplant status; R10.32 Left lower quadrant pain; R10.31 Right lower quadrant pain; I16.0 Hypertensive urgency; I25.10 Atherosclerotic heart disease of native coronary artery without angina pectoris; G89.29 Other chronic pain; K21.9 Gastro-esophageal reflux disease without esophagitis; N40.0 Benign prostatic hyperplasia without lower urinary tract symptoms; I12.9 Hypertensive chronic kidney disease with stage 1 through stage 4 chronic kidney disease, or unspecified chronic kidney disease; I71.2 Thoracic aortic aneurysm, without rupture; M19.90 Unspecified osteoarthritis, unspecified site; E11.22 Type 2 diabetes mellitus with diabetic chronic kidney disease; N18.3 Chronic kidney disease, stage 3 (moderate); Z96.1 Presence of intraocular lens; F32.9 Major depressive disorder, single episode, unspecified; M79.605 Pain in left leg; M79.604 Pain in right leg; E03.9 Hypothyroidism, unspecified; M54.5 Low back pain; M25.552 Pain in left hip; M25.551 Pain in right hip; E78.00 Pure hypercholesterolemia, unspecified; E78.5 Hyperlipidemia, unspecified; K59.00 Constipation, unspecified; Z85.830 Personal history of malignant neoplasm of bone; Z92.21 Personal history of antineoplastic chemotherapy; Z79.84 Long term (current) use of oral hypoglycemic drugs; Z79.82 Long term (current) use of aspirin; Z79.890 Hormone replacement therapy; Z79.899 Other long term (current) drug therapy; I25.2 Old myocardial infarction; Z90.49 Acquired absence of other specified parts of digestive tract; Z98.42 Cataract extraction status, left eye; Z98.41 Cataract extraction status, right eye; Z82.49 Family history of ischemic heart disease and other diseases of the circulatory system; Z82.3 Family history of stroke; Z83.3 Family history of diabetes mellitus; Z95.5 Presence of coronary angioplasty implant and graft; Z98.890 Other specified postprocedural states; Z87.442 Personal history of urinary calculi; Z91.81 History of falling
CPT/HCPCS: 36415; 71275; 73502; 75635; 80053; 80061; 82550; 82553; 83735; 84484; 85025; 85610; 85730; 93005; 93306; 94760; 96365; 96366; 96375; 96376; 99291

== ENCOUNTER → 2018-04-14 | Day surgery (SDC) | payer MEDICARE, OTHER ==
[2018-04-13 09:38] VITALS: BMI 30.1
[2018-04-14 10:50] VITALS: RESP 16; TEMP 97.7
[2018-04-14] MEDS: LACTATED RINGERS 1,000 ML IV SCH ×2 (10:53→11:01)
[2018-04-14 11:08] LABS: Glucose,Whole Blood 120 mg/dL (75-99)
--- NOTE | 2018-04-14 11:13 | P.PCN ---
Date of Procedure: 04/14/18 Surgeon: Adi Shore Pathology: none sent Condition: stable Disposition: PACU Description of Procedure: PREOPERATIVE DIAGNOSIS: 1-Lumbar radiculitis. POSTOPERATIVE DIAGNOSIS: 1-Lumbar radiculitis. PROCEDURE 1. Lumbar epidural steroid injection under fluoroscopic guidance at the L4-L5 level. 2. Lumbar epidurogram. ANESTHESIA: Local with 1% lidocaine; IV sedation with Versed. EBL: Minimal PROCEDURE INDICATION: The patient with low back pain and radiculitis symptoms unresponsive to conservative treatment. Fluoroscopy was used to optimize visualization of the needle placement and to maximize safety. PROCEDURE DESCRIPTION / TECHNIQUE: The patient was seen and identified in the preoperative area. Risks, benefits, complications, and alternatives were discussed with the patient, including but not limited to bleeding, infection, nerve damage, allergic reactions to medications, and incomplete pain relief. The patient agreed to proceed with the procedure and signed the consent after all questions were answered. IV was started, and vital signs were stable. Patient was taken to the OR and time out was completed to confirm patient position, procedure, laterality of pain, and allergies. The patient was placed in the prone position on procedure table and a pillow was placed under the abdomen to reduce lumbar lordosis. The lumbosacral area was prepped and draped in the usual sterile fashion. Critical pause was taken. Vital signs were closely monitored during the procedure. Conscious sedation was used during the procedure to decrease patients anxiety. Using anterior-posterior fluoroscopy, the L4-L5 interlaminar space was identified and the skin over this site was marked and then infiltrated with 1% lidocaine subcutaneously. Subsequently, a 20-gauge Tuohy epidural needle was inserted and advanced toward the epidural space using the Loss of resistance technique and guided by AP and lateral fluoroscopy. The correct needle position in the epidural space was verified with the injection of 2 mL of the water soluble contrast dye Isovue 200 contrast and observing an excellent epidurogram with the epidural spread of the dye, after negative aspiration for blood and CSF and in the absence of paresthesias. Again after negative aspiration, a 6 ml mixture containing 40 mg of Depo Medrol and 3 ml of preservative free Normal Saline, and 2 ml of preservative free lidocaine 1% solution was injected and a washout of epidurogram was seen. Needle was withdrawn intact, skin was cleansed , and bandages were applied. COMPLICATIONS: None COMMENTS: DISPOSITION / PLANS: The patient was placed in a supine position and transferred to the recovery area in a stable condition for observation. There was no evidence of lower extremity motor or sensory deficit after the procedure. Patient was discharged from the recovery room after meeting discharge criteria. Home discharge instructions were given to the patient by the staff. The patient was reexamined prior to discharge and there were no issues. The patient will schedule a follow up in the clinic in 2-4 weeks.
--- NOTE | 2018-04-14 11:24 | FL ---
EXAMINATION TYPE: [place] guided pain mgmt statistic DATE OF EXAM: 04/14/2018 HISTORY: Flouroscopy time 12 seconds of fluoroscopy provided. IMPRESSION: 1. Fluoroscopy time.
[2018-04-14 11:32] VITALS: BP 146/83; PULSE 94
== END | disposition home or self-care (01) ==
LOC: ORPAIN 09:06
PROVIDERS: ATTEND Anesthesiology
DX: M51.16 Intervertebral disc disorders with radiculopathy, lumbar region (principal); I25.2 Old myocardial infarction; M48.061 Spinal stenosis, lumbar region without neurogenic claudication; M51.17 Intervertebral disc disorders with radiculopathy, lumbosacral region; Z85.830 Personal history of malignant neoplasm of bone; Z79.82 Long term (current) use of aspirin; Z79.84 Long term (current) use of oral hypoglycemic drugs; Z79.899 Other long term (current) drug therapy
CPT/HCPCS: 62323; J2250; J1030; Q9966

== ENCOUNTER 2018-05-04 07:29 | Day surgery (SDC) | payer MEDICARE, OTHER ==
[2018-04-29 11:07] VITALS: BMI 30.4
[2018-05-04 09:16] VITALS: TEMP 97.2
[2018-05-04] MEDS ORDERED: LACTATED RINGERS 1,000 ML IV ONE ×2 (09:16→09:44)
[2018-05-04] MEDS ORDERED: LIDOCAINE 1% 20 ML VIAL (10MG/ML) FOR IV START INTRADERMA ONE (09:17)
[2018-05-04 09:29] LABS: Glucose,Whole Blood 122 mg/dL (75-99)
--- NOTE | 2018-05-04 09:42 | P.PCN ---
Date of Procedure: 05/04/18 Procedure(s) Performed: PREOPERATIVE DIAGNOSIS: 1- Lumbar radiculopathy. POSTOPERATIVE DIAGNOSIS: same as preop diagnosis. PROCEDURE 1. Lumbar epidural steroid injection under fluoroscopic guidance at the L4-5 level. 2. Lumbar epidurogram. ANESTHESIA: Local with 1% lidocaine 3 ml and , moderate sedation with intravenous Versed 1 mg . EBL: Minimal PROCEDURE INDICATION: The patient with low back pain and radiculitis symptoms unresponsive to conservative treatment. Fluoroscopy was used to optimize visualization of the needle placement and to maximize safety. PROCEDURE DESCRIPTION / TECHNIQUE: The patient was seen and identified in the preoperative area. Risks, benefits , complications including but not limited to infections ,bleeding ,allergic reaction to the medications ,nerve damage and not complete pain releife , and alternatives were discussed with the patient. The patient agreed to proceed with the procedure and signed the consent. IV was started, and vital signs were stable. Patient was taken to the OR and time out was completed. The patient was placed in the prone position on procedure table and a pillow was placed under the abdomen to reduce lumbar lordosis. The lumbosacral area was prepped and draped in the usual sterile fashion.ere closely monitored during the procedure. Conscious sedation was used during the procedure to decrease patients anxiety. Vital signs was monitered during the entire procedure. Using anterior-posterior fluoroscopy, the L4-5 interlaminar space was identified and the skin over this site was marked and then infiltrated with 1% lidocaine subcutaneously. Subsequently, a 20-gauge Tuohy epidural needle was inserted and advanced toward the epidural space using the ``Loss of resistance technique and guided by AP and lateral fluoroscopy. The correct needle position in the epidural space was verified with the injection of 2 mL of the water soluble contrast dye Isovue 200 contrast and observing an excellent epidurogram with the epidural spread of the dye, after negative aspiration for blood and CSF and in the absence of paresthesias. Again after negative aspiration, a 6 ml mixture containing 40 mg Depo-Medrol, and 2 ml of preservative free Normal Saline, and 2 ml of preservative free lidocaine 1% solution was injected and a washout of epidurogram was seen. Needle was withdrawn intact, skin was cleansed, and bandages were applied. COMPLICATIONS: None DISPOSITION / PLANS: The patient was placed in a supine position and transferred to the recovery area in a stable condition for observation. There was no evidence of lower extremity motor or sensory deficit after the procedure. Patient was discharged from the recovery room after meeting discharge criteria. Home discharge instructions were given to the patient by the staff. The patient was reexamined prior to discharge. The patient will schedule a follow up in the clinic in 2-4 weeks.
[2018-05-04 09:52] VITALS: RESP 18
[2018-05-04 10:07] VITALS: BP 143/82; PULSE 94
[2018-05-04 10:09] LABS: Glucose,Whole Blood 101 mg/dL (75-99)
--- NOTE | 2018-05-04 10:49 | FL ---
EXAMINATION TYPE: [place] guided pain mgmt statistic DATE OF EXAM: 05/04/2018 FLUOROSCOPY Fluoroscopy time of 4 seconds was used during lumbar epidural injection. 1 image/s document/s the pr aria.
[2018-05-04] MEDS ORDERED: LACTATED RINGERS 1,000 ML IV SCH (11:15)
== END 2018-05-04 10:36 | disposition home or self-care (01) ==
LOC: ORPAIN 07:29
PROVIDERS: ATTEND Specialist
DX: M51.16 Intervertebral disc disorders with radiculopathy, lumbar region (principal); M48.061 Spinal stenosis, lumbar region without neurogenic claudication; E11.9 Type 2 diabetes mellitus without complications; I25.10 Atherosclerotic heart disease of native coronary artery without angina pectoris; K21.9 Gastro-esophageal reflux disease without esophagitis; I10 Essential (primary) hypertension
CPT/HCPCS: 62323; J2250; J1030; 99152

== ENCOUNTER 2018-05-19 11:07 | Observation (INO) | payer MEDICARE, OTHER ==
[2018-05-19] MEDS ORDERED: NITROGLYCERIN OINT 1 INCH/GM PACKET TOPICAL STA (11:26)
[2018-05-19] MEDS ORDERED: ASPIRIN 81 MG PO STA (11:26)
--- NOTE | 2018-05-19 11:28 | ED ---
General Adult HPI - General Chief complaint: Chest Pain Stated complaint: Chest Pain Time Seen by Provider: 05/19/18 11:21 Source: patient, EMS, RN notes reviewed Mode of arrival: EMS Limitations: no limitations - History of Present Illness Initial comments: Patient is a pleasant 72-year-old male presenting to the emergency Department with complaints of chest discomfort. Onset of symptoms was around 10:00 this morning. Patient was on the phone with his insurance company which was somewhat upsetting. Discomfort was severe. Discomfort did not improve with nitro glycerin by EMS however did with some fat no. Discomfort is currently rated at 4/10. Discomfort is similar to previous cardiac problems. Patient does have a history of 7 previous stents. Discomfort feels like pressure. There is some radiation towards the neck as well as lower and shoulder. Chest/ abdomen with chest/abdomen and shoulder. This did happen previously with previous cardiac problems as well. Patient did have some associated nausea that is near resolved. Patient did have dyspnea and diaphoresis. - Related Data Home Medications Medication Instructions Recorded Confirmed Dicyclomine HCl 20 mg PO DAILY 05/24/14 05/19/18 Levothyroxine Sodium [Synthroid] 100 mcg PO DAILY 05/24/14 05/19/18 Omeprazole 40 mg PO DAILY 05/24/14 05/19/18 metFORMIN HCL 1,000 mg PO DAILY 05/24/14 05/19/18 Nortriptyline [Pamelor] 25 mg PO HS 02/23/15 05/19/18 Metoprolol Succinate (ER) [Toprol 100 mg PO DAILY 10/11/16 05/19/18 XL] Tamsulosin [Flomax] 0.4 mg PO DAILY 10/11/16 05/19/18 amLODIPine [Norvasc] 5 mg PO DAILY 10/11/16 05/19/18 Aspirin EC [Ecotrin Low Dose] 81 mg PO DAILY 12/26/16 05/19/18 Gabapentin [Neurontin] 100 mg PO HS 01/26/18 05/19/18 Isosorbide Mononitrate ER [Imdur] 30 mg PO DAILY 01/26/18 05/19/18 clonazePAM [KlonoPIN] 0.5 mg PO DAILY PRN 01/26/18 05/19/18 Loperamide [Imodium] 2 mg PO DAILY PRN 04/13/18 05/19/18 Allergies Allergy/AdvReac Type Severity Reaction Status Date / Time No Known Allergies Allergy Verified 05/19/18 11:50 Review of Systems ROS Statement: Those systems with pertinent positive or pertinent negative responses have been documented in the HPI. ROS Other: All systems not noted in ROS Statement are negative. Constitutional: Denies: fever Eyes: Denies: eye pain ENT: Denies: ear pain Respiratory: Reports: dyspnea. Denies: cough Cardiovascular: Reports: chest pain Endocrine: Denies: fatigue Gastrointestinal: Reports: nausea Genitourinary: Denies: dysuria Musculoskeletal: Denies: back pain Skin: Denies: rash Neurological: Denies: weakness Past Medical History Past Medical History: Coronary Artery Disease (CAD), Cancer, Chest Pain / Angina , Diabetes Mellitus, GERD/Reflux, Hypertension, Myocardial Infarction ([place]), Osteoarthritis (OA), Prostate Disorder, Thyroid Disorder Additional Past Medical History / Comment(s): having abdominal pain and rectal bleeding,2014 diagnosed with bone cancer after found to have cancerous tumor on his back-removed and pt had chemo, 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 [facility], chronic intermittedt R lower abdominal pain with etiology unknown, NIDDM type II , BPH, rectal bleed, diverticulosis, kidney stones, pt denies any kidney disease other than stones."CHIPPED DISC" d/t faLL IN NOVEMBER Last Myocardial Infarction Date:: 2014 History of Any Multi-Drug Resistant Organisms: None Reported Past Surgical History: Adenoidectomy, Appendectomy, Cholecystectomy, Heart Catheterization With Stent, Hernia Repair, Orthopedic Surgery, Tonsillectomy Additional Past Surgical History / Comment(s): Bilateral carpal tunnel, bone spur removals to bilateral heels and FEET, X7 cardiac STENTS, RT KNEE BONE SPURS , CATARACTS JA with lens implants, JA INGUINAL HERNIA REPAIR AND UMBILLICAL. removal of malignant tumor from back,EGD 06-04-17, RT LEG SX FOR TORN LIGAMENT. "WAS BORN W/ OVERSIZED LIVER HAD SX TO REDUCE IT'S SIZE" Past Anesthesia/Blood Transfusion Reactions: No Reported Reaction Additional Past Anesthesia/Blood Transfusion Reaction / Comment(s): Pt states he has received blood in the past without reaction. Date of Last Stent Placement:: 2014 Past Psychological History: Depression Smoking Status: Never smoker Past Alcohol Use History: None Reported Past Drug Use History: None Reported - Past Family History Father Family Medical History: Myocardial Infarction ([place]) Additional Family Medical History / Comment(s): PTBA Mother Family Medical History: CVA/TIA, Diabetes Mellitus Additional Family Medical History / Comment(s): Mother of a CVA at the age of 82 yrs. Brother(s) Family Medical History: Cancer Additional Family Medical History / Comment(s): 2 brothers have MS General Exam Limitations: no limitations General appearance: alert, in no apparent distress Head exam: Present: atraumatic Eye exam: Present: normal appearance, PERRL ENT exam: Present: normal oropharynx Neck exam: Present: normal inspection Respiratory exam: Present: normal lung sounds bilaterally. Absent: chest wall tenderness Cardiovascular Exam: Present: regular rate, normal rhythm Expanded Peripheral pulses: 2+: Radial (R), Radial (L), Dorsalis Pedis (R), Dorsalis Pedis (L) GI/Abdominal exam: Present: soft. Absent: tenderness Extremities exam: Present: normal inspection. Absent: pedal edema, calf tenderness Neurological exam: Present: alert Psychiatric exam: Present: normal affect, normal mood Skin exam: Present: normal color Course Vital Signs 05/19/18 05/19/18 05/19/18 11:11 11:24 12:00 Temperature 97.3 F L Pulse Rate 87 82 Pulse Rate [ 80 Supine Electromyographic Technician] Respiratory 19 17 Rate Blood Pressure 160/81 150/85 O2 Sat by Pulse 97 98 Oximetry EKG Findings - EKG Comments: EKG Findings:: Normal sinus rhythm 81. PA 174. QRS 92. QT 364. QTC 422. Normal axis. Normal QRS. No acute ST change. Medical Decision Making - Medical Decision Making Patient reevaluated and starting to have some increase in discomfort. Patient updated on results and plan. Case was discussed in detail Dr. Vo will admit for Dr. Adamson. He did come evaluate the patient in the emergency department. - Lab Data Result diagrams: 05/19/18 11:50 05/19/18 11:45 Lab Results 05/19/18 05/19/18 05/19/18 Range/Units 11:45 11:45 11:50 WBC 3.8 (3.8-10.6) k/uL RBC 4.35 (4.30-5.90) m/uL Hgb 13.3 (13.0-17.5) gm/dL Hct 40.0 (39.0-53.0) % MCV 92.1 (80.0-100.0) fL MCH 30.5 (25.0-35.0) pg MCHC 33.2 (31.0-37.0) g/dL RDW 13.6 (11.5-15.5) % Plt Count 109 L (150-450) k/uL Neutrophils % 71 % Lymphocytes % 15 % Monocytes % 10 % Eosinophils % 1 % Basophils % 1 % Neutrophils # 2.7 (1.3-7.7) k/uL Lymphocytes # 0.6 L (1.0-4.8) k/uL Monocytes # 0.4 (0-1.0) k/uL Eosinophils # 0.0 (0-0.7) k/uL Basophils # 0.0 (0-0.2) k/uL PT (9.0-12.0) sec INR (<1.2) APTT (22.0-30.0) sec Sodium 141 (137-145) mmol/L Potassium 4.7 (3.5-5.1) mmol/L Chloride 108 H (98-107) mmol/L Carbon Dioxide 24 (22-30) mmol/L Anion Gap 9 mmol/L BUN 24 H (9-20) mg/dL Creatinine 1.40 H (0.66-1.25) mg/dL Est GFR (CKD-EPI)AfAm 59 (>60 ml/min/1.73 sqM) Est GFR (CKD-EPI)NonAf 51 (>60 ml/min/1.73 sqM) Glucose 109 H (74-99) mg/dL Calcium 9.3 (8.4-10.2) mg/dL Magnesium 1.7 (1.6-2.3) mg/dL Total Bilirubin 0.4 (0.2-1.3) mg/dL AST 30 (17-59) U/L ALT 41 (21-72) U/L Alkaline Phosphatase 70 (38-126) U/L Total Creatine Kinase 134 (55-170) U/L CK-MB (CK-2) 2.4 (0.0-2.4) ng/mL CK-MB (CK-2) Rel Index 1.8 Troponin I <0.012 (0.000-0.034) ng/mL Total Protein 6.7 (6.3-8.2) g/dL Albumin 4.2 (3.5-5.0) g/dL 05/19/18 Range/Units 11:50 WBC (3.8-10.6) k/uL RBC (4.30-5.90) m/uL Hgb (13.0-17.5) gm/dL Hct (39.0-53.0) % MCV (80.0-100.0) fL MCH (25.0-35.0) pg MCHC (31.0-37.0) g/dL RDW (11.5-15.5) % Plt Count (150-450) k/uL Neutrophils % % Lymphocytes % % Monocytes % % Eosinophils % % Basophils % % Neutrophils # (1.3-7.7) k/uL Lymphocytes # (1.0-4.8) k/uL Monocytes # (0-1.0) k/uL Eosinophils # (0-0.7) k/uL Basophils # (0-0.2) k/uL PT 10.5 (9.0-12.0) sec INR 1.1 (<1.2) APTT 22.9 (22.0-30.0) sec Sodium (137-145) mmol/L Potassium (3.5-5.1) mmol/L Chloride (98-107) mmol/L Carbon Dioxide (22-30) mmol/L Anion Gap mmol/L BUN (9-20) mg/dL Creatinine (0.66-1.25) mg/dL Est GFR (CKD-EPI)AfAm (>60 ml/min/1.73 sqM) Est GFR (CKD-EPI)NonAf (>60 ml/min/1.73 sqM) Glucose (74-99) mg/dL Calcium (8.4-10.2) mg/dL Magnesium (1.6-2.3) mg/dL Total Bilirubin (0.2-1.3) mg/dL AST (17-59) U/L ALT (21-72) U/L Alkaline Phosphatase (38-126) U/L Total Creatine Kinase (55-170) U/L CK-MB (CK-2) (0.0-2.4) ng/mL CK-MB (CK-2) Rel Index Troponin I (0.000-0.034) ng/mL Total Protein (6.3-8.2) g/dL Albumin (3.5-5.0) g/dL - Radiology Data Radiology results: image reviewed (Chest x-ray shows no acute process) Disposition Clinical Impression: Chest pain Disposition: ADMITTED IP TO THIS HOSP Is patient prescribed a controlled substance at d/c from ED?: No Referrals: Micheal Adamson MD [Primary Care Provider] - 1-2 days Decision Time: 13:10
[2018-05-19 12:10] LABS: Basophils % (A) 1 %; Eosinophils % (A) 1 %; HGB 13.3 gm/dL (13.0-17.5); Lymphocytes # (A) 0.6 k/uL (1.0-4.8); Lymphocytes % (A) 15 %; MCH 30.5 pg (25.0-35.0); MCHC 33.2 g/dL (31.0-37.0); MCV 92.1 fL (80.0-100.0); Mean Platelet Volume 7.3; Monocytes # (A) 0.4 k/uL (0-1.0); Monocytes % (A) 10 %; Neutrophils # (A) 2.7 k/uL (1.3-7.7); Neutrophils % (A) 71 %; Platelet Count 109 k/uL (150-450); RBC 4.35 m/uL (4.30-5.90); RDW 13.6 % (11.5-15.5); WBC 3.8 k/uL (3.8-10.6)
[2018-05-19 12:16] LABS: INR 1.1 (<1.2); Partial Thromboplastin Time 22.9 sec (22.0-30.0); Prothrombin Time 10.5 sec (9.0-12.0)
[2018-05-19 12:23] LABS: Albumin 4.2 g/dL (3.5-5.0); Calcium 9.3 mg/dL (8.4-10.2); Magnesium 1.7 mg/dL (1.6-2.3); Potassium 4.7 mmol/L (3.5-5.1); Total Bilirubin 0.4 mg/dL (0.2-1.3); Total Protein 6.7 g/dL (6.3-8.2)
[2018-05-19 12:29] LABS: Creatine Kinase 134 U/L (55-170)
--- NOTE | 2018-05-19 12:29 | XR ---
EXAMINATION TYPE: XR chest 2V DATE OF EXAM: 05/19/2018 COMPARISON: Chest x-ray dated 03/25/2018 HISTORY: Chest pain TECHNIQUE: Frontal and lateral views of the chest are obtained. FINDINGS: There is no focal air space opacity, pleural effusion, or pneumothorax seen. The cardiac silhouette size is within normal limits. There are overlying cardiac leads, artifacts noted over the neck. The osseous structures are intact. Anterior flowing osteophytes may be indicative of diffuse i diopathic skeletal hyperostosis. IMPRESSION: No acute cardiopulmonary process.
[2018-05-19 12:42] LABS: Creatine Kinase MB 2.4 ng/mL (0.0-2.4); Troponin I <0.012 ng/mL (0.000-0.034)
[2018-05-19] MEDS ORDERED: NITROGLYCERIN SL TABS 0.4 MG TAB SUBLINGUAL PRN (13:10)
[2018-05-19] MEDS ORDERED: KETOROLAC 30 MG/ML 1 ML VIAL IVP STA (13:10)
--- NOTE | 2018-05-19 17:27 | P.HPIM ---
History of Present Illness 72-year-old gentleman came in with complaints of chest pain which started today morning relieved by nitroglycerin lasted for few minutes. Patient does have history of coronary artery disease with previous stents in to around 2001. Patient chest pain isn't reproducible musculoskeletal in nature changes with chest position and deep breathing. D-dimer is negative. Patient had recent similar hospitalization in month of December at that time patient was diagnosed with musculoskeletal chest pain was subsequently discharged home patient EKG showed some nonspecific ST-T wave changes. Echocardiogram was opted at that time which was essentially within normal limits. Patient has minimal elevated creatinine baseline around 1. now around 1.4. Was also complaining of for shoulder pain and neck pain patient does have bulging disc in the lower lumbar spine. He denied any shortness of breath that diaphoresis associated with this chest pain Review of Systems REVIEW OF SYSTEMS: CONSTITUTIONAL: No fever, no malaise, no fatigue. HEENT: No recent visual problems or hearing problems. Denied any sore throat. CARDIOVASCULAR: No,orthopnea, PND, no palpitations, no syncope. PULMONARY: No shortness of breath, no cough, no hemoptysis. GASTROINTESTINAL: No diarrhea, no nausea, no vomiting, no abdominal pain. Normoactive bowel sounds. NEUROLOGICAL: No headaches, no weakness, no numbness. HEMATOLOGICAL: Denies any bleeding or petechiae. GENITOURINARY: Denies any burning micturition, frequency, or urgency. MUSCULOSKELETAL/RHEUMATOLOGICAL: Denies any joint pain, swelling, or any muscle pain. ENDOCRINE: Denies any polyuria or polydipsia. The rest of the 14-point review of systems is negative. 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 [facility], chronic intermittedt R lower abdominal pain with etiology unknown, NIDDM type II , BPH, rectal bleed, diverticulosis, kidney stones, pt denies any kidney disease other than stones."CHIPPED DISC" d/t faLL IN NOVEMBER Last Myocardial Infarction Date:: 2014 History of Any Multi-Drug Resistant Organisms: None Reported Past Surgical History: Adenoidectomy, Appendectomy, Cholecystectomy, Heart Catheterization With Stent, Hernia Repair, Orthopedic Surgery, Tonsillectomy Additional Past Surgical History / Comment(s): blood glucose monitor implanted rt abd-pt stated readings go right to the office.Bilateral carpal tunnel, bone spur removals to bilateral heels and FEET, X7 cardiac STENTS, RT KNEE BONE SPURS , CATARACTS JA with lens implants, JA INGUINAL HERNIA REPAIR AND UMBILLICAL. removal of malignant tumor from back,EGD 06-04-17, RT LEG SX FOR TORN LIGAMENT. "WAS BORN W/ OVERSIZED LIVER HAD SX TO REDUCE IT'S SIZE" Past Anesthesia/Blood Transfusion Reactions: No Reported Reaction Additional Past Anesthesia/Blood Transfusion Reaction / Comment(s): Pt states he has received blood in the past without reaction. Date of Last Stent Placement:: 2014 Smoking Status: Never smoker - Past Family History Father Family Medical History: Myocardial Infarction ([place]) Additional Family Medical History / Comment(s): PTBA Mother Family Medical History: CVA/TIA, Diabetes Mellitus Additional Family Medical History / Comment(s): Mother of a CVA at the age of 82 yrs. Brother(s) Family Medical History: Cancer Additional Family Medical History / Comment(s): 2 brothers have MS Medications and Allergies Home Medications Medication Instructions Recorded Confirmed Type Dicyclomine HCl 20 mg PO DAILY 05/24/14 05/19/18 History Levothyroxine Sodium [Synthroid] 100 mcg PO DAILY 05/24/14 05/19/18 History Omeprazole 40 mg PO DAILY 05/24/14 05/19/18 History metFORMIN HCL 1,000 mg PO DAILY 05/24/14 05/19/18 History Nortriptyline [Pamelor] 25 mg PO HS 02/23/15 05/19/18 History Metoprolol Succinate (ER) [Toprol 100 mg PO DAILY 10/11/16 05/19/18 History XL] Tamsulosin [Flomax] 0.4 mg PO DAILY 10/11/16 05/19/18 History amLODIPine [Norvasc] 5 mg PO DAILY 10/11/16 05/19/18 History Aspirin EC [Ecotrin Low Dose] 81 mg PO DAILY 12/26/16 05/19/18 History Gabapentin [Neurontin] 100 mg PO HS 01/26/18 05/19/18 History Isosorbide Mononitrate ER [Imdur] 30 mg PO DAILY 01/26/18 05/19/18 History clonazePAM [KlonoPIN] 0.5 mg PO DAILY PRN 01/26/18 05/19/18 History Loperamide [Imodium] 2 mg PO DAILY PRN 04/13/18 05/19/18 History Allergies Allergy/AdvReac Type Severity Reaction Status Date / Time No Known Allergies Allergy Verified 05/19/18 11:50 Physical Exam Vitals: Vital Signs Temp Pulse Pulse Resp BP Pulse Ox 05/19/18 15:55 73 18 165/78 99 05/19/18 14:46 85 18 134/83 99 05/19/18 13:27 78 17 153/76 100 05/19/18 12:00 82 17 150/85 98 05/19/18 11:24 80 05/19/18 11:11 97.3 F L 87 19 160/81 97 Intake and Output 05/19/18 05/19/18 05/19/18 06:59 14:59 22:59 Other: Weight 100.698 kg PHYSICAL EXAMINATION: GENERAL: The patient is alert and oriented x3, not in any acute distress. Well developed, well nourished. HEENT: Pupils are round and equally reacting to light. EOMI. No scleral icterus. No conjunctival pallor. Normocephalic, atraumatic. No pharyngeal erythema. No thyromegaly. CARDIOVASCULAR: S1 and S2 present. No murmurs, rubs, or gallops. PULMONARY: Chest is clear to auscultation, no wheezing or crackles. ABDOMEN: Soft, nontender, nondistended, normoactive bowel sounds. No palpable organomegaly. MUSCULOSKELETAL: No joint swelling or deformity. EXTREMITIES: No cyanosis, clubbing, or pedal edema. NEUROLOGICAL: Gross neurological examination did not reveal any focal deficits. SKIN: No rashes. Results CBC & Chem 7: 05/19/18 11:50 05/19/18 11:45 Labs: Abnormal Lab Results - Last 24 Hours (Table) 05/19/18 05/19/18 Range/Units 11:45 11:50 Plt Count 109 L (150-450) k/uL Lymphocytes # 0.6 L (1.0-4.8) k/uL Chloride 108 H (98-107) mmol/L BUN 24 H (9-20) mg/dL Creatinine 1.40 H (0.66-1.25) mg/dL Glucose 109 H (74-99) mg/dL Assessment and Plan Plan: -Chest pain: Mostly musculoskeletal reproducible changes with position. 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 -Hypertension -Gastroesophageal reflux disease.
[2018-05-19] MEDS: SODIUM CHLORIDE 0.9% 1,000 ML IV SCH (17:54)
[2018-05-19 18:53] LABS: Creatine Kinase 102 U/L (55-170)
[2018-05-19 19:05] LABS: Creatine Kinase MB 1.9 ng/mL (0.0-2.4); Troponin I <0.012 ng/mL (0.000-0.034)
[2018-05-19] MEDS: NITROGLYCERIN OINT 1 INCH/GM PACKET TOPICAL SCH (19:21)
[2018-05-19 20:15] LABS: Glucose,Whole Blood 169 mg/dL (75-99)
[2018-05-19] MEDS ORDERED: NORTRIPTYLINE 25 MG CAP PO SCH (21:00)
[2018-05-19] MEDS ORDERED: GABAPENTIN 100 MG CAP PO SCH (21:00)
[2018-05-19 22:44] LABS: Creatine Kinase 87 U/L (55-170)
[2018-05-19 22:56] LABS: Creatine Kinase MB 1.6 ng/mL (0.0-2.4); Troponin I <0.012 ng/mL (0.000-0.034)
[2018-05-20] MEDS: NITROGLYCERIN OINT 1 INCH/GM PACKET TOPICAL SCH (04:58)
[2018-05-20] MEDS ORDERED: LEVOTHYROXINE 100 MCG TAB PO SCH (06:30)
[2018-05-20 07:03] LABS: Glucose,Whole Blood 112 mg/dL (75-99)
[2018-05-20] MEDS ORDERED: PANTOPRAZOLE 40 MG TABLET PO SCH (07:30)
[2018-05-20] MEDS: SODIUM CHLORIDE 0.9% 1,000 ML IV SCH (07:55)
[2018-05-20] MEDS ORDERED: AMINOPHYLLINE 500 MG/20 ML VIAL IV PRN (08:16)
[2018-05-20] MEDS ORDERED: REGADENOSON 0.4 MG/5 ML SYRINGE IV ONE (08:30)
--- NOTE | 2018-05-20 08:57 | CONS ---
CONSULTATION This is a 72-year-old male patient who was talking on the phone. He started having severe left precordial chest discomfort and he almost doubled up in pain and came to the emergency room. His D-dimer was normal. Three cardiac enzymes are normal. His 12- lead ECG did not show any ST-segment abnormalities suggestive of ischemia. No dizziness or lightheadedness. REVIEW OF SYSTEMS: No fever, chills, or rigors. No cough, phlegm or expectoration. No nausea, vomiting or diarrhea. No hematuria or dysuria. No strokes or seizures. No skin lesions. No musculoskeletal complaints. MEDICATIONS: His medication list includes dicyclomine, Synthroid, omeprazole, metformin, Pamelor, metoprolol, Flomax, amlodipine, aspirin, isosorbide, Klonopin and gabapentin. ALLERGIES: No known drug allergies. PAST HISTORY: Past history of coronary artery disease and coronary stenting about 2-1/2 years back in [place]. History of bone cancer. History of type 2 diabetes, kidney stones. History of adenoidectomy, appendectomy, cholecystectomy, cardiac catheterization in the setting of ND and coronary stenting 2-1/2 years back. SOCIAL HISTORY: Never smoker. PHYSICAL EXAMINATION: On examination, he is afebrile, 98.4 degrees Fahrenheit, pulse rate in the 70s, respiration normal, blood pressure 135/54 mmHg. Head and neck examination is normal. Heart sounds S1, S2 normal. There is a soft systolic murmur heard over the cardiac apex. No S3 gallop. Breath sounds are clear. No rhonchi, no crackles. Abdomen is soft, nontender. Extremities are warm, no edema. IMPRESSION: 1. Chest discomfort with normal cardiac enzymes. 2. Type 2 diabetes. 3. Known coronary artery disease, status post coronary artery stenting 2-1/2 years back. 4. Cardiac murmur systolic over the apex. SUGGEST: 1. A 2-D echo and Doppler study to assess the cardiac . 2. Lexiscan Cardiolite stress test to evaluate chest discomfort. MMODL / IJN: [id number] /
[2018-05-20] MEDS ORDERED: ISOSORBIDE MONONITRATE ER 30 MG TAB.ER.24H PO SCH (09:00)
[2018-05-20] MEDS ORDERED: TAMSULOSIN 0.4 MG CAP.ER.24H PO SCH (09:00)
[2018-05-20] MEDS ORDERED: ASPIRIN 325 MG TAB PO SCH (09:00)
[2018-05-20] MEDS ORDERED: METOPROLOL SUCCINATE (ER) 100 MG TAB.ER.24H PO SCH (09:00)
[2018-05-20] MEDS ORDERED: amLODIPine 5 MG TAB PO SCH (09:00)
--- NOTE | 2018-05-20 10:43 | P.STRESS ---
- Stress Test Note Stress Test Results/Findings: Exam Performed: Exam Date: Reason for Exam: Height: 6 ft Weight: 100.698 kg Protocol: Stage: Duration of Exercise: Resting Heart Rate: Resting Blood Pressure: Maximum Achieved Heart Rate: Maximum Achieved Blood Pressure: 85% PMHR: 100% PMHR: METS: Technologist Comment: Stress Test Results/Findings: Baseline heart is 76 beats a minute Baseline blood pressure 133/70 mmHg Twelve-lead ECG shows normal sinus rhythm with normal cardiac intervals Patient is able flex confusion per protocol lives in increasing his heart rate 202 beats a minute mild increase in blood pressure the patient complained of abdominal pain and numbness and tingling in the right arm but without any commands. ECG abnormalities. Blood pressure was elevated while he is complaining of abdominal pain this was lower abdominal pain no chest pain No ECG is for ischemia and arrhythmias Nuclear portion of the stress test will be reported separately
--- NOTE | 2018-05-20 11:01 | NM ---
EXAMINATION TYPE: NM stress lexiscan cardiolite DATE OF EXAM: 05/20/2018 COMPARISON: NONE HISTORY: Precordial chest pain and abnormal EKG TECHNIQUE: After the intravenous administration of 10.8 mCi Tc 99m Sestamibi - Cardiolite resting SP ECT images acquired 45 minutes post injection. The patient received 0.4mg Lexiscan, 24.9 mCi Tc 99m Sestamibi - Stress images obtained [address] injection FINDINGS: Review of stress and rest SPECT images demonstrates fixed decreased perfusion involving the inferior wall likely on the basis of attenuation artifact. Fixed defect is difficult to exclude. No definite e vidence for stress-induced ischemia this time. Gated analysis shows normal wall motion with an estima leighton left ventricular ejection fraction of 73 %. IMPRESSION: No scintigraphic evidence for reversible ischemia.
[2018-05-20 12:07] LABS: Glucose,Whole Blood 195 mg/dL (75-99)
--- NOTE | 2018-05-20 12:20 | P.DS ---
Providers Date of admission: 05/19/18 13:10 Attending physician: Rebeca Vo Consults: 05/19/18 13:10 Consult Physician Urgent Consulting Provider: Jn Cisse Consult Reason/Comments: cp Do you want consulting provider notified?: Yes Primary care physician: Micheal Adamson [facility] Hospital Course: 72-year-old pleasant gentleman was admitted for chest pain we'll rule out a concurrent syndromes patient's chest pain is clinically consistent with musculoskeletal chest pain. Patient will undergo stress test if that's negative patient will be discharged patient was evaluated cardiology rule out acute coronary syndromes. D-dimer is negative PHYSICAL EXAMINATION: GENERAL: The patient is alert and oriented x3, not in any acute distress. Well developed, well nourished. HEENT: Pupils are round and equally reacting to light. EOMI. No scleral icterus. No conjunctival pallor. Normocephalic, atraumatic. No pharyngeal erythema. No thyromegaly. CARDIOVASCULAR: S1 and S2 present. No murmurs, rubs, or gallops. PULMONARY: Chest is clear to auscultation, no wheezing or crackles. ABDOMEN: Soft, nontender, nondistended, normoactive bowel sounds. No palpable organomegaly. MUSCULOSKELETAL: No joint swelling or deformity. EXTREMITIES: No cyanosis, clubbing, or pedal edema. NEUROLOGICAL: Gross neurological examination did not reveal any focal deficits. SKIN: No rashes. Please up dramatically from yesterday for further details of other chronic medical problems and hospitalization course Plan - Discharge Summary Discharge Rx Participant: No New Discharge Prescriptions: No Action metFORMIN HCL 1,000 mg PO DAILY Dicyclomine HCl 20 mg PO DAILY Levothyroxine Sodium [Synthroid] 100 mcg PO DAILY Omeprazole 40 mg PO DAILY Nortriptyline [Pamelor] 25 mg PO HS Tamsulosin [Flomax] 0.4 mg PO DAILY amLODIPine [Norvasc] 5 mg PO DAILY Metoprolol Succinate (ER) [Toprol XL] 100 mg PO DAILY Aspirin EC [Ecotrin Low Dose] 81 mg PO DAILY clonazePAM [KlonoPIN] 0.5 mg PO DAILY PRN PRN Reason: Anxiety Gabapentin [Neurontin] 100 mg PO HS Isosorbide Mononitrate ER [Imdur] 30 mg PO DAILY Loperamide [Imodium] 2 mg PO DAILY PRN PRN Reason: Constipation Discharge Medication List Dicyclomine HCl 20 mg PO DAILY 05/24/14 [History] Levothyroxine Sodium [Synthroid] 100 mcg PO DAILY 05/24/14 [History] Omeprazole 40 mg PO DAILY 05/24/14 [History] metFORMIN HCL 1,000 mg PO DAILY 05/24/14 [History] Nortriptyline [Pamelor] 25 mg PO HS 02/23/15 [History] Metoprolol Succinate (ER) [Toprol XL] 100 mg PO DAILY 10/11/16 [History] Tamsulosin [Flomax] 0.4 mg PO DAILY 10/11/16 [History] amLODIPine [Norvasc] 5 mg PO DAILY 10/11/16 [History] Aspirin EC [Ecotrin Low Dose] 81 mg PO DAILY 12/26/16 [History] Gabapentin [Neurontin] 100 mg PO HS 01/26/18 [History] Isosorbide Mononitrate ER [Imdur] 30 mg PO DAILY 01/26/18 [History] clonazePAM [KlonoPIN] 0.5 mg PO DAILY PRN 01/26/18 [History] Loperamide [Imodium] 2 mg PO DAILY PRN 04/13/18 [History] Follow up Appointment(s)/Referral(s): Micheal Adamson MD [Primary Care Provider] - 1-2 days
[2018-05-20 13:23] VITALS: BP 162/81; PULSE 83; RESP 18; TEMP 98.6
[2018-05-20 13:27] LABS: Hemoglobin A1C 6.4 % (4.0-6.0)
--- NOTE | 2018-05-25 15:21 | EST ---
Stress Test Results/Findings: Exam Performed: Lexiscan Cardiolite Exam Date: 05/20/18 Reason for Exam: CP, Hx of HI Height: 6 ft Weight: 100.698 kg Protocol: [place] Stage: Duration of Exercise: Resting Heart Rate: 76 Resting Blood Pressure: 133/70 Maximum Achieved Heart Rate:117 Maximum Achieved Blood Pressure: 185/73 85% PMHR: 128 100% PMHR: 150 METS: Technologist Comment: Stress Test Results/Findings: Baseline heart is 76 beats a minute Baseline blood pressure 133/70 mmHg Twelve-lead ECG shows normal sinus rhythm with normal cardiac intervals Patient is able flex confusion per protocol lives in increasing his heart rate 202 beats a minute mild increase in blood pressure the patient complained of abdominal pain and numbness and tingling in the right arm but without any commands. ECG abnormalities. Blood pressure was elevated while he is complaining of abdominal pain this was lower abdominal pain no chest pain No ECG is for ischemia and arrhythmias Nuclear portion of the stress test will be reported separately MTDD
== END 2018-05-20 15:00 | disposition home or self-care (01) ==
LOC: EC 11:07 → 3OBS 13:10
PROVIDERS: ADMIT Internal Medicine; ATTEND Internal Medicine
DX: R07.89 Other chest pain (principal); Z95.5 Presence of coronary angioplasty implant and graft; R11.0 Nausea; R06.00 Dyspnea, unspecified; R61 Generalized hyperhidrosis; I25.10 Atherosclerotic heart disease of native coronary artery without angina pectoris; K21.9 Gastro-esophageal reflux disease without esophagitis; I25.2 Old myocardial infarction; M19.90 Unspecified osteoarthritis, unspecified site; Z85.830 Personal history of malignant neoplasm of bone; Z92.21 Personal history of antineoplastic chemotherapy; Z94.81 Bone marrow transplant status; N40.0 Benign prostatic hyperplasia without lower urinary tract symptoms; Z87.442 Personal history of urinary calculi; R01.1 Cardiac murmur, unspecified; N18.2 Chronic kidney disease, stage 2 (mild); I12.9 Hypertensive chronic kidney disease with stage 1 through stage 4 chronic kidney disease, or unspecified chronic kidney disease; E11.22 Type 2 diabetes mellitus with diabetic chronic kidney disease; E03.9 Hypothyroidism, unspecified; M51.9 Unspecified thoracic, thoracolumbar and lumbosacral intervertebral disc disorder; E11.21 Type 2 diabetes mellitus with diabetic nephropathy; M54.2 Cervicalgia; R07.2 Precordial pain; M25.519 Pain in unspecified shoulder; R94.4 Abnormal results of kidney function studies; R20.2 Paresthesia of skin; R10.30 Lower abdominal pain, unspecified; R20.0 Anesthesia of skin; Z79.890 Hormone replacement therapy; Z79.84 Long term (current) use of oral hypoglycemic drugs; Z79.899 Other long term (current) drug therapy; Z79.82 Long term (current) use of aspirin; Z90.49 Acquired absence of other specified parts of digestive tract; F32.9 Major depressive disorder, single episode, unspecified; Z82.3 Family history of stroke; Z82.0 Family history of epilepsy and other diseases of the nervous system
CPT/HCPCS: 99285; 96374; 36415; 93005; 93017; 85379; 80061; 80053; 80048; 82550; 82553; 83735; 84484; 85025; 85610; 85730; 83036; 71046; 78452; G0378 ×2; A9500; J1885; J2785

== ENCOUNTER → 2018-05-28 | Outpatient (CLI) | payer MEDICARE, OTHER ==
[2018-05-28 14:41] VITALS: BP 144/70; PULSE 115; RESP 16
--- NOTE | 2018-05-28 14:45 | P.PAINPG ---
Subjective Progress Note Date: 05/28/18 Principal diagnosis: Lumbar spinal stenosis This is a pleasant 72-year-old gentleman history lumbar spinal stenosis. He presents today for follow-up after undergoing 2 previous lumbar steroid injections. He reports that his pain has been reduced almost nothing. He also has significant improvement in his functionality. Objective - Vital Signs Vital signs: Vital Signs Temp Pulse 115 H 05/28/18 14:38 Resp 16 05/28/18 14:38 BP 144/70 05/28/18 14:38 Pulse Ox 98 05/28/18 14:38 Intake & Output 05/27/18 05/28/18 05/28/18 18:59 06:59 18:59 Weight 101.605 kg - Exam General: The patient is alert and oriented. Patient is not sedateded Patient answers all question appropriately. Cardiac: Heart is regular in rate and rhythm Respiratory: Clear to auscultation. No audible wheezes. Abdomen: Soft nontender nondistended. Lower extremities: Strength is normal bilaterally. Sensation is normal bilaterally. Reflexes are preserved and symmetric bilaterally. Straight leg raise is negative bilaterally. Assessment and Plan (1) Lumbar spinal stenosis Narrative/Plan: The patient will follow up for repeat of lumbar epidural steroid injection on an as-needed basis. Otherwise, I have instructed him to continue his increased activity and stay active. Current Visit: Yes Status: Acute Code(s): M48.061 - SPINAL STENOSIS, LUMBAR REGION WITHOUT NEUROGENIC ZONIA SNOMED Code(s): 52477150 PQRS Measure Charge Sheet Measure #130: Documentation of Current Meds in Medical Chart: Patient's medications documented in chart Measure #226: Tobacco Use: Screen & Cessation Intervention: Pt not a tobacco user Measure #111: Pneumonia Vaccination: Pneumococcal vaccine NOT administered or previously given Measure #47: Advance Care Plan: Advance care planning discussed & documented, pt chose/unable to give Measure #412: Opioid Treatment Agreement: No documentation of signed opioid treatment agreement Measure #408: Opioid Therapy Follow-up Evaluation: Patient had NO f/u eval minimum every 3 months during opioid therapy Measure #317: Preventitive Care & Scrn High Bld Press & F/U: Normal blood pressure, f/u not required Measure #128: Body Mass Index (BMI) Screening & Follow-up: BMI documented within normal parameters Measure #131: Pain Assessment & Follow-up: Pain positive & plan documented Measure #431: Unhealthy Alcohol Use Preventative Care & Scrn: Patient not identified as an unhealthy alcohol user PQRS Narrative: Smoking Status Never smoker Do You Want the Pneumonia Vaccine Up to Date Vaccine AT THIS TIME? Blood Pressure 144/70 Pain Intensity [Lower Back] 2 Scale Used Numeric (1 - 10) Hx Alcohol Use (MH) No Home Medications: Ambulatory Orders Dicyclomine HCl 20 mg PO DAILY 05/24/14 Levothyroxine Sodium [Synthroid] 100 mcg PO DAILY 05/24/14 Omeprazole 40 mg PO DAILY 05/24/14 metFORMIN HCL 1,000 mg PO DAILY 05/24/14 Nortriptyline [Pamelor] 25 mg PO HS 02/23/15 Metoprolol Succinate (ER) [Toprol XL] 100 mg PO DAILY 10/11/16 Tamsulosin [Flomax] 0.4 mg PO DAILY 10/11/16 amLODIPine [Norvasc] 5 mg PO DAILY 10/11/16 Aspirin EC [Ecotrin Low Dose] 81 mg PO DAILY 12/26/16 Gabapentin [Neurontin] 100 mg PO HS 01/26/18 Isosorbide Mononitrate ER [Imdur] 30 mg PO DAILY 01/26/18 clonazePAM [KlonoPIN] 0.5 mg PO DAILY PRN 01/26/18 Loperamide [Imodium] 2 mg PO DAILY PRN 04/13/18 Controlled Substance Measures - Controlled Substance Measures Is patient prescribed a controlled substance at discharge?: No
== END | disposition home or self-care (01) ==
LOC: PNWHC3 13:31
PROVIDERS: ATTEND Pain Medicine Pain Medicine
DX: M48.061 Spinal stenosis, lumbar region without neurogenic claudication (principal); Z79.899 Other long term (current) drug therapy; Z79.84 Long term (current) use of oral hypoglycemic drugs; Z79.82 Long term (current) use of aspirin
CPT/HCPCS: 99211

== ENCOUNTER 2018-06-26 19:41 | Observation (INO) | payer MEDICARE, OTHER ==
[2018-06-26 20:05] LABS: Basophils # (A) 0.1 k/uL (0-0.2); Basophils % (A) 1 %; Eosinophils # (A) 0.1 k/uL (0-0.7); Eosinophils % (A) 2 %; HCT 38.9 % (39.0-53.0); HGB 12.8 gm/dL (13.0-17.5); Lymphocytes # (A) 0.8 k/uL (1.0-4.8); Lymphocytes % (A) 18 %; MCH 30.1 pg (25.0-35.0); MCV 91.2 fL (80.0-100.0); Mean Platelet Volume 8.2; Monocytes # (A) 0.5 k/uL (0-1.0); Monocytes % (A) 10 %; Neutrophils # (A) 3.1 k/uL (1.3-7.7); Neutrophils % (A) 66 %; Platelet Count 125 k/uL (150-450); RBC 4.26 m/uL (4.30-5.90); RDW 13.6 % (11.5-15.5); WBC 4.7 k/uL (3.8-10.6)
[2018-06-26 20:13] LABS: INR 1.1 (<1.2); Partial Thromboplastin Time 23.7 sec (22.0-30.0); Prothrombin Time 10.6 sec (9.0-12.0)
[2018-06-26 20:21] LABS: Calcium 8.6 mg/dL (8.4-10.2); Creatine Kinase 355 U/L (55-170); Total Bilirubin 0.3 mg/dL (0.2-1.3); Total Protein 6.5 g/dL (6.3-8.2)
--- NOTE | 2018-06-26 20:32 | ED ---
General Adult HPI - General Chief complaint: Chest Pain Stated complaint: Chest Pain Time Seen by Provider: 06/26/18 19:44 Source: EMS, RN notes reviewed, old records reviewed Mode of arrival: EMS Limitations: no limitations - History of Present Illness Initial comments: 72-year-old male presents for evaluation of chest pain. Patient has history of CAD status post multiple stents. States that he's had pain for the past 2 hours. This began at rest. He did report cough associated with his chest pain. Describes it as bilateral upper chest pain. No fever or chills. Patient was well prior to this episode. He has no history of heart failure. Denies lower extremity pain or swelling. Denies nausea or vomiting. Denies diaphoresis. - Related Data Home Medications Medication Instructions Recorded Confirmed Dicyclomine HCl 20 mg PO DAILY 05/24/14 06/26/18 Levothyroxine Sodium [Synthroid] 100 mcg PO DAILY 05/24/14 06/26/18 Omeprazole 40 mg PO DAILY 05/24/14 06/26/18 metFORMIN HCL 1,000 mg PO DAILY 05/24/14 06/26/18 Nortriptyline [Pamelor] 25 mg PO HS 02/23/15 06/26/18 Metoprolol Succinate (ER) [Toprol 100 mg PO DAILY 10/11/16 06/26/18 XL] Tamsulosin [Flomax] 0.4 mg PO DAILY 10/11/16 06/26/18 amLODIPine [Norvasc] 5 mg PO DAILY 10/11/16 06/26/18 Aspirin EC [Ecotrin Low Dose] 81 mg PO DAILY 12/26/16 06/26/18 Gabapentin [Neurontin] 100 mg PO HS 01/26/18 06/26/18 Isosorbide Mononitrate ER [Imdur] 30 mg PO DAILY 01/26/18 06/26/18 clonazePAM [KlonoPIN] 0.5 mg PO DAILY PRN 01/26/18 06/26/18 Loperamide [Imodium] 2 mg PO DAILY PRN 04/13/18 06/26/18 Allergies Allergy/AdvReac Type Severity Reaction Status Date / Time No Known Allergies Allergy Verified 06/26/18 19:56 Review of Systems ROS Statement: Those systems with pertinent positive or pertinent negative responses have been documented in the HPI. ROS Other: All systems not noted in ROS Statement are negative. 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 [facility], chronic intermittedt R lower abdominal pain with etiology unknown, NIDDM type II , BPH, rectal bleed, diverticulosis, kidney stones, pt denies any kidney disease other than stones."CHIPPED DISC" d/t faLL IN NOVEMBER Last Myocardial Infarction Date:: 2014 History of Any Multi-Drug Resistant Organisms: None Reported Past Surgical History: Adenoidectomy, Appendectomy, Cholecystectomy, Heart Catheterization With Stent, Hernia Repair, Orthopedic Surgery, Tonsillectomy Additional Past Surgical History / Comment(s): blood glucose monitor implanted rt abd-pt stated readings go right to the office.Bilateral carpal tunnel, bone spur removals to bilateral heels and FEET, X7 cardiac STENTS, RT KNEE BONE SPURS , CATARACTS JA with lens implants, JA INGUINAL HERNIA REPAIR AND UMBILLICAL. removal of malignant tumor from back,EGD 06-04-17, RT LEG SX FOR TORN LIGAMENT. "WAS BORN W/ OVERSIZED LIVER HAD SX TO REDUCE IT'S SIZE" Past Anesthesia/Blood Transfusion Reactions: No Reported Reaction Additional Past Anesthesia/Blood Transfusion Reaction / Comment(s): Pt states he has received blood in the past without reaction. Date of Last Stent Placement:: 2014 Past Psychological History: Depression Smoking Status: Never smoker Past Alcohol Use History: None Reported Past Drug Use History: None Reported - Past Family History Father Family Medical History: Myocardial Infarction (NC) Additional Family Medical History / Comment(s): PTBA Mother Family Medical History: CVA/TIA, Diabetes Mellitus Additional Family Medical History / Comment(s): Mother of a CVA at the age of 82 yrs. Brother(s) Family Medical History: Cancer Additional Family Medical History / Comment(s): 2 brothers have MS General Exam Limitations: no limitations General appearance: alert, in no apparent distress Head exam: Present: atraumatic, normocephalic Eye exam: Present: normal appearance, PERRL ENT exam: Present: normal exam Neck exam: Present: normal inspection. Absent: tenderness, meningismus Respiratory exam: Present: normal lung sounds bilaterally, chest wall tenderness. Absent: respiratory distress, wheezes Cardiovascular Exam: Present: regular rate, normal rhythm GI/Abdominal exam: Present: soft. Absent: distended, tenderness, guarding Extremities exam: Present: normal inspection, normal capillary refill. Absent: pedal edema, calf tenderness Neurological exam: Present: alert, oriented X3, CN II-XII intact. Absent: motor sensory deficit Psychiatric exam: Present: normal affect, normal mood Skin exam: Present: warm, dry, intact. Absent: cyanosis, diaphoretic Course Vital Signs 06/26/18 06/26/18 06/26/18 19:46 20:08 20:46 Temperature 97.3 F L 98.8 F Pulse Rate 81 78 82 Respiratory 18 18 18 Rate Blood Pressure 133/69 133/72 115/70 O2 Sat by Pulse 95 100 99 Oximetry 06/26/18 21:41 Temperature Pulse Rate 75 Respiratory 18 Rate Blood Pressure 111/75 O2 Sat by Pulse 98 Oximetry EKG Findings - EKG Comments: EKG Findings:: EKG: Normal sinus rhythm, rate of 81, [place] interval 158, QRS duration 92, QTC [address] segment elevation, Medical Decision Making - Medical Decision Making 72-year-old male presenting with chest pain. Pain began approximately 2 hours prior to arrival. Describes it as bilateral lower chest pain. Patient does admit to cough and states his pain is worse with cough. Patient has history of CAD, previous NC with stenting. EKG is negative for definitive signs of acute ischemia. Workup in the emergency department reveals normal white blood cell count, stable hemoglobin, creatinine 1.7 which is slightly above baseline. Troponin is negative. Patient will be kept in observation for repeat reactive enzymes. He will be kept on telemetry. - Lab Data Result diagrams: 06/26/18 19:53 06/26/18 19:53 Lab Results 06/26/18 06/26/18 06/26/18 Range/Units 19:53 19:53 19:53 WBC 4.7 (3.8-10.6) k/uL RBC 4.26 L (4.30-5.90) m/uL Hgb 12.8 L (13.0-17.5) gm/dL Hct 38.9 L (39.0-53.0) % MCV 91.2 (80.0-100.0) fL MCH 30.1 (25.0-35.0) pg MCHC 33.0 (31.0-37.0) g/dL RDW 13.6 (11.5-15.5) % Plt Count 125 L (150-450) k/uL Neutrophils % 66 % Lymphocytes % 18 % Monocytes % 10 % Eosinophils % 2 % Basophils % 1 % Neutrophils # 3.1 (1.3-7.7) k/uL Lymphocytes # 0.8 L (1.0-4.8) k/uL Monocytes # 0.5 (0-1.0) k/uL Eosinophils # 0.1 (0-0.7) k/uL Basophils # 0.1 (0-0.2) k/uL PT (9.0-12.0) sec INR (<1.2) APTT (22.0-30.0) sec Sodium 140 (137-145) mmol/L Potassium 4.0 (3.5-5.1) mmol/L Chloride 105 (98-107) mmol/L Carbon Dioxide 24 (22-30) mmol/L Anion Gap 11 mmol/L BUN 33 H (9-20) mg/dL Creatinine 1.70 H (0.66-1.25) mg/dL Est GFR (CKD-EPI)AfAm 46 (>60 ml/min/1.73 sqM) Est GFR (CKD-EPI)NonAf 40 (>60 ml/min/1.73 sqM) Glucose 179 H (74-99) mg/dL Calcium 8.6 (8.4-10.2) mg/dL Magnesium 2.0 (1.6-2.3) mg/dL Total Bilirubin 0.3 (0.2-1.3) mg/dL AST 30 (17-59) U/L ALT 29 (21-72) U/L Alkaline Phosphatase 74 (38-126) U/L Total Creatine Kinase 355 H (55-170) U/L CK-MB (CK-2) 4.4 H* (0.0-2.4) ng/mL CK-MB (CK-2) Rel Index 1.2 Troponin I <0.012 (0.000-0.034) ng/mL NT-Pro-B Natriuret Pep pg/mL Total Protein 6.5 (6.3-8.2) g/dL Albumin 4.0 (3.5-5.0) g/dL Lipase 59 (23-300) U/L 06/26/18 06/26/18 Range/Units 19:53 19:53 WBC (3.8-10.6) k/uL RBC (4.30-5.90) m/uL Hgb (13.0-17.5) gm/dL Hct (39.0-53.0) % MCV (80.0-100.0) fL MCH (25.0-35.0) pg MCHC (31.0-37.0) g/dL RDW (11.5-15.5) % Plt Count (150-450) k/uL Neutrophils % % Lymphocytes % % Monocytes % % Eosinophils % % Basophils % % Neutrophils # (1.3-7.7) k/uL Lymphocytes # (1.0-4.8) k/uL Monocytes # (0-1.0) k/uL Eosinophils # (0-0.7) k/uL Basophils # (0-0.2) k/uL PT 10.6 (9.0-12.0) sec INR 1.1 (<1.2) APTT 23.7 (22.0-30.0) sec Sodium (137-145) mmol/L Potassium (3.5-5.1) mmol/L Chloride (98-107) mmol/L Carbon Dioxide (22-30) mmol/L Anion Gap mmol/L BUN (9-20) mg/dL Creatinine (0.66-1.25) mg/dL Est GFR (CKD-EPI)AfAm (>60 ml/min/1.73 sqM) Est GFR (CKD-EPI)NonAf (>60 ml/min/1.73 sqM) Glucose (74-99) mg/dL Calcium (8.4-10.2) mg/dL Magnesium (1.6-2.3) mg/dL Total Bilirubin (0.2-1.3) mg/dL AST (17-59) U/L ALT (21-72) U/L Alkaline Phosphatase (38-126) U/L Total Creatine Kinase (55-170) U/L CK-MB (CK-2) (0.0-2.4) ng/mL CK-MB (CK-2) Rel Index Troponin I (0.000-0.034) ng/mL NT-Pro-B Natriuret Pep 71 pg/mL Total Protein (6.3-8.2) g/dL Albumin (3.5-5.0) g/dL Lipase (23-300) U/L Disposition Clinical Impression: Chest pain Disposition: ADMITTED IP TO THIS HOSP Condition: Stable Is patient prescribed a controlled substance at d/c from ED?: No Referrals: Micheal Adamson MD [Primary Care Provider] - 1-2 days Decision to Admit Reason: Admit from EC Decision Date: 06/26/18 Decision Time: 22:10
[2018-06-26 20:33] LABS: Troponin I <0.012 ng/mL (0.000-0.034)
[2018-06-26 20:34] LABS: Creatine Kinase MB 4.4 ng/mL (0.0-2.4)
--- NOTE | 2018-06-26 20:37 | XR ---
EXAMINATION TYPE: XR chest 2V DATE OF EXAM: 06/26/2018 COMPARISON: 05/19/2018 HISTORY: Chest pain TECHNIQUE: Frontal and lateral views of the chest are obtained. FINDINGS: Heart and mediastinum are normal. Lungs are clear. Diaphragm is normal. There is spurring in the thoracic spine. There are chest leads. IMPRESSION: No active cardiopulmonary disease. Normal heart. No change.
[2018-06-26] MEDS ORDERED: MORPHINE SULFATE 4 MG/ML SYRINGE IVP STA (20:39)
[2018-06-26] MEDS ORDERED: ACETAMINOPHEN TAB 325 MG TAB PO PRN (22:18)
[2018-06-26] MEDS ORDERED: ONDANSETRON 4 MG/2 ML VIAL IVP PRN (22:18)
[2018-06-26] MEDS ORDERED: NALOXONE 0.4 MG/ML 1 ML VIAL IV PRN (22:18)
[2018-06-26] MEDS ORDERED: clonazePAM 0.5 MG TAB PO PRN (22:20)
[2018-06-27 00:05] VITALS: BMI 30.4
[2018-06-27] MEDS: MORPHINE SULFATE 4 MG/ML SYRINGE IV PRN ×3 (00:07→19:51)
[2018-06-27 02:01] LABS: Creatine Kinase 281 U/L (55-170)
[2018-06-27 02:15] LABS: Troponin I <0.012 ng/mL (0.000-0.034)
[2018-06-27 02:28] LABS: Creatine Kinase MB 3.5 ng/mL (0.0-2.4)
[2018-06-27] MEDS: LEVOTHYROXINE 100 MCG TAB PO SCH (04:54)
[2018-06-27 07:06] LABS: Glucose,Whole Blood 123 mg/dL (75-99)
[2018-06-27] MEDS: amLODIPine 5 MG TAB PO SCH (08:22)
[2018-06-27] MEDS: ISOSORBIDE MONONITRATE ER 30 MG TAB.ER.24H PO SCH (08:22)
[2018-06-27] MEDS: PANTOPRAZOLE 40 MG TABLET PO SCH (08:22)
[2018-06-27] MEDS: METOPROLOL SUCCINATE (ER) 100 MG TAB.ER.24H PO SCH (08:22)
[2018-06-27] MEDS: ASPIRIN 81 MG PO SCH (08:22)
[2018-06-27 08:47] LABS: Creatine Kinase 224 U/L (55-170)
[2018-06-27 09:00] LABS: Troponin I <0.012 ng/mL (0.000-0.034)
[2018-06-27 09:06] LABS: Creatine Kinase MB 3.3 ng/mL (0.0-2.4)
[2018-06-27 11:54] LABS: Glucose,Whole Blood 137 mg/dL (75-99)
--- NOTE | 2018-06-27 12:17 | P.CRDCN ---
History of Present Illness History of present illness: This is Dr. Moise dictating a consult on this patient The patient was interviewed and examined by me IMPRESSION / ASSESSMENT: Atypical chest discomfort across the chest from the left to right shoulder and radiating into the neck and jaws with normal cardiac enzymes normal ECG, ongoing discomfort for a long time Patient admitted with abdominal pain PLAN: Continue cardiac medications 2-D echo and Doppler study to assess cardiac structure and function and pericardium HPI Patient came in complaining of abdominal pain. He has also been experiencing severe chest discomfort spreading from the left shoulder across to the right shoulder. It also goes up into his neck and jaw and has been going on for weeks His back is also starting to bother him, low back ROS: No fever chills or rigors, no cough, phlegm or expectoration, no nausea, vomiting or diarrhea, no hematuria, dysuria, no musculoskeletal complaints, no strokes or seizures, no skin lesions. Chest pain as described above EXAMINATION On examination afebrile 97.5F, pulse rate in the 60s and 70s, normal respirations, blood pressure 121/71 mmHg With sounds are clear no rhonchi no crackles Heart sounds are soft there's a soft systolic murmur over the precordium Abdomen soft nontender Extremity is warm no edema REVIEW OF LABS, ECG Hemoglobin 12.8, BUN 33 creatinine 1.7 Elevated CPK but normal troponins Normal lipase Telemetry ECG shows normal [place] narrow QRS normal ST segments Past Medical History Past Medical History: Coronary Artery Disease (CAD), Cancer, Chest Pain / Angina , Diabetes Mellitus, GERD/Reflux, Hypertension, Myocardial Infarction (SD), Osteoarthritis (OA), Prostate Disorder, Thyroid Disorder Additional Past Medical History / Comment(s): having abdominal pain and rectal bleeding,2015 diagnosed with bone cancer after found to have cancerous tumor on his back-removed and pt had chemo, 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 [facility], chronic intermittedt R lower abdominal pain with etiology unknown, NIDDM type II , BPH, rectal bleed, diverticulosis, kidney stones, pt denies any kidney disease other than stones."CHIPPED DISC" d/t faLL IN NOVEMBER Last Myocardial Infarction Date:: 2014 History of Any Multi-Drug Resistant Organisms: None Reported Past Surgical History: Adenoidectomy, Appendectomy, Cholecystectomy, Heart Catheterization With Stent, Hernia Repair, Orthopedic Surgery, Tonsillectomy Additional Past Surgical History / Comment(s): blood glucose monitor implanted rt abd-pt stated readings go right to the office.Bilateral carpal tunnel, bone spur removals to bilateral heels and FEET, X7 cardiac STENTS, B/L KNEE BONE SPURS, CATARACTS JA with lens implants, JA INGUINAL HERNIA REPAIR AND UMBILLICAL. removal of malignant tumor from back,EGD 06-04-17, RT LEG SX FOR TORN LIGAMENT."WAS BORN W/ OVERSIZED LIVER HAD SX TO REDUCE IT'S SIZE" Past Anesthesia/Blood Transfusion Reactions: No Reported Reaction Additional Past Anesthesia/Blood Transfusion Reaction / Comment(s): Pt states he has received blood in the past without reaction. Date of Last Stent Placement:: 2014 Smoking Status: Never smoker - Past Family History Father Family Medical History: Myocardial Infarction (SD) Additional Family Medical History / Comment(s): PTBA Mother Family Medical History: CVA/TIA, Diabetes Mellitus Additional Family Medical History / Comment(s): Mother of a CVA at the age of 82 yrs. Brother(s) Family Medical History: Cancer Additional Family Medical History / Comment(s): 2 brothers have MS Medications and Allergies Home Medications Medication Instructions Recorded Confirmed Type RX: Dicyclomine HCl 20 mg PO DAILY 05/24/14 06/26/18 History RX: Levothyroxine Sodium 100 mcg PO DAILY 05/24/14 06/26/18 History [Synthroid] RX: Omeprazole 40 mg PO DAILY 05/24/14 06/26/18 History RX: metFORMIN HCL 1,000 mg PO DAILY 05/24/14 06/26/18 History RX: Nortriptyline [Pamelor] 25 mg PO 02/23/15 06/26/18 History RX: Metoprolol Succinate (ER) 100 mg PO DAILY 10/11/16 06/26/18 History [Toprol XL] RX: Tamsulosin [Flomax] 0.4 mg PO DAILY 10/11/16 06/26/18 History RX: amLODIPine [Norvasc] 5 mg PO DAILY 10/11/16 06/26/18 History RX: Aspirin EC [Ecotrin Low Dose] 81 mg PO DAILY 12/26/16 06/26/18 History RX: Gabapentin [Neurontin] 100 mg PO 01/26/18 06/26/18 History RX: Isosorbide Mononitrate ER 30 mg PO DAILY 01/26/18 06/26/18 History [Imdur] RX: clonazePAM [KlonoPIN] 0.5 mg PO DAILY PRN 01/26/18 06/26/18 History Loperamide [Imodium] 2 mg PO DAILY PRN 04/13/18 06/26/18 History Allergies Allergy/AdvReac Type Severity Reaction Status Date / Time No Known Allergies Allergy Verified 06/26/18 23:45 Physical Exam Vitals: Vital Signs Temp Pulse Pulse Resp BP BP Pulse Ox 06/27/18 08:00 97.5 F L 65 18 144/76 98 06/27/18 04:00 18 06/27/18 03:55 97.5 F L 74 18 121/71 95 06/27/18 00:00 18 06/26/18 23:40 97.5 F L 70 16 155/79 98 06/26/18 22:43 96.9 F L 83 18 106/72 99 06/26/18 21:41 75 18 111/75 98 06/26/18 20:46 82 18 115/70 99 06/26/18 20:08 98.8 F 78 18 133/72 100 06/26/18 19:46 97.3 F L 81 18 133/69 95 Intake and Output 06/26/18 06/27/18 06/27/18 22:59 06:59 14:59 Other: Voiding Method Toilet # Voids 1 Weight 101.605 kg 101.6 kg Results 06/26/18 19:53 06/26/18 19:53 Cardiac Enzymes 06/26/18 06/26/18 06/27/18 Range/Units 19:53 19:53 01:05 AST 30 (17-59) U/L CK-MB (CK-2) 4.4 H* 3.5 H* (0.0-2.4) ng/mL Troponin I <0.012 <0.012 (0.000-0.034) ng/mL 06/27/18 Range/Units 07:50 AST (17-59) U/L CK-MB (CK-2) 3.3 H* (0.0-2.4) ng/mL Troponin I <0.012 (0.000-0.034) ng/mL Coagulation 06/26/18 Range/Units 19:53 PT 10.6 (9.0-12.0) sec APTT 23.7 (22.0-30.0) sec CBC 06/26/18 Range/Units 19:53 WBC 4.7 (3.8-10.6) k/uL RBC 4.26 L (4.30-5.90) m/uL Hgb 12.8 L (13.0-17.5) gm/dL Hct 38.9 L (39.0-53.0) % Plt Count 125 L (150-450) k/uL Comprehensive Metabolic Panel 06/26/18 Range/Units 19:53 Sodium 140 (137-145) mmol/L Potassium 4.0 (3.5-5.1) mmol/L Chloride 105 (98-107) mmol/L Carbon Dioxide 24 (22-30) mmol/L BUN 33 H (9-20) mg/dL Creatinine 1.70 H (0.66-1.25) mg/dL Glucose 179 H (74-99) mg/dL Calcium 8.6 (8.4-10.2) mg/dL AST 30 (17-59) U/L ALT 29 (21-72) U/L Alkaline Phosphatase 74 (38-126) U/L Total Protein 6.5 (6.3-8.2) g/dL Albumin 4.0 (3.5-5.0) g/dL Current Medications Generic Name Dose Route Start Last Admin Trade Name Freq PRN Reason Stop Dose Admin Acetaminophen 650 mg 06/26/18 22:18 06/27/18 11:24 Tylenol Tab PO 650 mg Q6HR PRN Administration Mild Pain or Fever > 100.5 Amlodipine Besylate 5 mg 06/27/18 09:00 06/27/18 08:22 Norvasc PO 5 mg DAILY JULIANA Administration Aspirin 81 mg 06/27/18 09:00 06/27/18 08:22 Aspirin PO 81 mg DAILY JULIANA Administration Clonazepam 0.5 mg 06/26/18 22:20 Klonopin PO DAILY PRN Anxiety Isosorbide Mononitrate 30 mg 06/27/18 09:00 06/27/18 08:22 Imdur PO 30 mg DAILY JULIANA Administration Levothyroxine Sodium 100 mcg 06/27/18 06:00 06/27/18 04:54 Synthroid PO 100 mcg DAILY@0600 JULIANA Administration Metoprolol Succinate 100 mg 06/27/18 09:00 06/27/18 08:22 Toprol Xl PO 100 mg DAILY JULIANA Administration Morphine Sulfate 4 mg 06/26/18 22:18 06/27/18 08:16 Morphine Sulfate (Inj) IV 4 mg Q4HR PRN Administration Severe Pain Naloxone HCl 0.2 mg 06/26/18 22:18 Narcan IV Q2M PRN Opioid Reversal Ondansetron HCl 4 mg 06/26/18 22:18 Zofran IVP Q8HR PRN Nausea And Vomiting Pantoprazole Sodium 40 mg 06/27/18 09:00 06/27/18 08:22 Protonix PO 40 mg DAILY JULIANA Administration Intake and Output 06/26/18 06/27/18 06/27/18 22:59 06:59 14:59 Other: Voiding Method Toilet # Voids 1 Weight 101.605 kg 101.6 kg 06/26/18 19:53 06/26/18 19:53
[2018-06-27] MEDS: ACETAMINOPHEN TAB 325 MG TAB PO PRN (15:20)
[2018-06-27 17:01] LABS: Glucose,Whole Blood 127 mg/dL (75-99)
--- NOTE | 2018-06-27 17:24 | ECHOF ---
Referral Reason:chest pain MEASUREMENTS -------- HEIGHT: 182.9 cm WEIGHT: 101.2 kg BP: IVSd: 1.1 cm (0.6 - 1.1) LVIDd: 3.9 cm (3.9 - 5.3) LVPWd: 1.2 cm (0.6 - 1.1) IVSs: 1.4 cm LVIDs: 3.3 cm LVPWs: 1.4 cm LA Diam: 4.2 cm (2.7 - 3.8) RVIDd: 3.2 cm (< 3.3) LAESV Index (A-L): 32.57 ml/m Ao Diam: 2.8 cm (2.0 - 3.7) LA Diam: 4.1 cm (2.7 - 3.8) AV Cusp: 1.2 cm (1.5 - 2.6) EPSS: 0.3 cm MV E Ever: 0.54 m/s MV DecT: 259 ms MV A Ever: 0.80 m/s MV E/A Ratio: 0.67 AV maxP.53 mmHg AV meanP.06 mmHg MV EF SLOPE: 89.91 mm/s (70 - 150) MV EXCURSION: 15.97 mm (> 18.000) FINDINGS -------- Sinus rhythm. This was a technically adequate study. The left ventricular size is normal. There is borderline concentric left ventricular hypertrophy. Overall left ventricular systolic function is low-normal with, an EF between 50 - 55 %. The right ventricle is normal in size. The left atrium is mildly dilated. LA is midly dilated 29-33ml/m2. The right atrial size is normal. There is mild aortic valve sclerosis. There is mild aortic regurgitation. There is mild aortic st enosis present. Peak/mean gradient across the Aortic Valve is 21.53mmHg / 12.06mmHg. Mild mitral annular calcification present. Mild mitral regurgitation is present. Mild tricuspid regurgitation present. There is no evidence of pulmonary hypertension. The right v entricular systolic pressure, as measured by Doppler, is {RVSP}. There is no pulmonic regurgitation present. The aortic root size is normal. There is no pericardial effusion. CONCLUSIONS -------- 1. The left ventricular size is normal. 2. There is borderline concentric left ventricular hypertrophy. 3. Overall left ventricular systolic function is low-normal with, an EF between 50 - 55 %. 4. The right ventricle is normal in size. 5. The left atrium is mildly dilated. 6. LA is midly dilated 29-33ml/m2. 7. The right atrial size is normal. 8. There is mild aortic valve sclerosis. 9. There is mild aortic regurgitation. 10. There is mild aortic stenosis present. 11. Peak/mean gradient across the Aortic Valve is 21.53mmHg / 12.06mmHg. 12. Mild mitral annular calcification present. 13. Mild mitral regurgitation is present. 14. Mild tricuspid regurgitation present. 15. There is no evidence of pulmonary hypertension. 16. The right ventricular systolic pressure, as measured by Doppler, is {RVSP}. 17. There is no pulmonic regurgitation present. 18. The aortic root size is normal. 19. There is no pericardial effusion. DIAMOND ASSORTER: Shantel Roy RDCS
[2018-06-27] MEDS ORDERED: IOPAMIDOL-300 CONTRAST 30 ML VIAL (ORAL USE) PO PRN (17:43)
[2018-06-27 20:00] LABS: Glucose,Whole Blood 132 mg/dL (75-99)
--- NOTE | 2018-06-27 22:10 | CT ---
EXAMINATION TYPE: CT abdomen wo con DATE OF EXAM: 06/27/2018 COMPARISON: Prior CT abdomen pelvis 02/14/2018 HISTORY: Epigastric abdominal pain. CT DLP: 561.3 mGycm Automated exposure control for dose reduction was used. TECHNIQUE: Helical acquisition of images was performed from the lung bases through the top of iliac crest to include entire abdomen. CONTRAST: Performed with Oral Contrast and without IV contrast. FINDINGS: Lack of intravenous contrast could compromise sensitivity. There is no pneumoperitoneum, re troperitoneal adenopathy or, or ascites. Coronary artery calcifications are present. LUNG BASES: No significant abnormality is appreciated. LIVER/GB: Patient is post cholecystectomy, liver is unremarkable. PANCREAS: No significant abnormality is seen. SPLEEN: No significant abnormality is seen. ADRENALS: No significant abnormality is seen. KIDNEYS: Small cortical cyst associated with the left kidney. BOWEL: No significant abnormality is seen. LYMPH NODES: No significant abnormality is appreciated. OSSEOUS STRUCTURES: Degenerative disc changes, facet arthropathy in the lumbar spine. FREE AIR: No Free Air visible ASCITES: None visible. RETROPERITONEAL ADENOPATHY: No Retroperitoneal Adenopathy visible. OTHER: IMPRESSION: NONCONTRAST EXAM. NONSPECIFIC FINDINGS DESCRIBED ABOVE. POSTOP CHANGES.
[2018-06-28] MEDS: MORPHINE SULFATE 4 MG/ML SYRINGE IV PRN ×2 (01:09→08:08)
[2018-06-28] MEDS: LEVOTHYROXINE 100 MCG TAB PO SCH (05:51)
[2018-06-28 06:55] LABS: Glucose,Whole Blood 72 mg/dL (75-99)
[2018-06-28 07:09] LABS: Glucose,Whole Blood 83 mg/dL (75-99)
[2018-06-28] MEDS: amLODIPine 5 MG TAB PO SCH (08:07)
[2018-06-28] MEDS: ASPIRIN 81 MG PO SCH (08:07)
[2018-06-28] MEDS: ISOSORBIDE MONONITRATE ER 30 MG TAB.ER.24H PO SCH (08:07)
[2018-06-28] MEDS: PANTOPRAZOLE 40 MG TABLET PO SCH (08:07)
[2018-06-28] MEDS: METOPROLOL SUCCINATE (ER) 100 MG TAB.ER.24H PO SCH (08:08)
[2018-06-28] MEDS: ACETAMINOPHEN TAB 325 MG TAB PO PRN (08:49)
[2018-06-28 11:56] LABS: Glucose,Whole Blood 105 mg/dL (75-99)
--- NOTE | 2018-06-28 15:34 | P.HPIM ---
History of Present Illness H&P Date: 06/27/18 Chief Complaint: Chest pain 72-year-old male presents for evaluation of chest pain. Patient has history of CAD status post multiple stents. States that he's had pain for the past 2 hours. This began at rest. He did report cough associated with his chest pain. Describes it as bilateral upper chest pain. No fever or chills. Patient was well prior to this episode. He has no history of heart failure. Denies lower extremity pain or swelling. Denies nausea or vomiting. Denies diaphoresis. Review of Systems Constitutional: Denies chills, Denies fever Eyes: denies blurred vision Ears: deny: earache Ears, nose, mouth and throat: Denies headache Cardiovascular: Reports chest pain, Denies high blood pressure, Denies irregular heart beat Respiratory: Denies cough, Denies dyspnea, Denies wheezing Gastrointestinal: Denies abdominal pain, Denies constipation Integumentary: Denies color changes, Denies rash Past Medical History Past Medical History: Coronary Artery Disease (CAD), Cancer, Chest Pain / Angina , Diabetes Mellitus, GERD/Reflux, Hypertension, Myocardial Infarction ([place]), Osteoarthritis (OA), Prostate Disorder, Thyroid Disorder Additional Past Medical History / Comment(s): having abdominal pain and rectal bleeding,2015 diagnosed with bone cancer after found to have cancerous tumor on his back-removed and pt had chemo, 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 [facility], chronic intermittedt R lower abdominal pain with etiology unknown, NIDDM type II , BPH, rectal bleed, diverticulosis, kidney stones, pt denies any kidney disease other than stones."CHIPPED DISC" d/t faLL IN NOVEMBER Last Myocardial Infarction Date:: 2014 History of Any Multi-Drug Resistant Organisms: None Reported Past Surgical History: Adenoidectomy, Appendectomy, Cholecystectomy, Heart Catheterization With Stent, Hernia Repair, Orthopedic Surgery, Tonsillectomy Additional Past Surgical History / Comment(s): blood glucose monitor implanted rt abd-pt stated readings go right to the office.Bilateral carpal tunnel, bone spur removals to bilateral heels and FEET, X7 cardiac STENTS, B/L KNEE BONE SPURS, CATARACTS JA with lens implants, JA INGUINAL HERNIA REPAIR AND UMBILLICAL. removal of malignant tumor from back,EGD 06-04-17, RT LEG SX FOR TORN LIGAMENT."WAS BORN W/ OVERSIZED LIVER HAD SX TO REDUCE IT'S SIZE" Past Anesthesia/Blood Transfusion Reactions: No Reported Reaction Additional Past Anesthesia/Blood Transfusion Reaction / Comment(s): Pt states he has received blood in the past without reaction. Date of Last Stent Placement:: 2014 Smoking Status: Never smoker - Past Family History Father Family Medical History: Myocardial Infarction ([place]) Additional Family Medical History / Comment(s): PTBA Mother Family Medical History: CVA/TIA, Diabetes Mellitus Additional Family Medical History / Comment(s): Mother of a CVA at the age of 82 yrs. Brother(s) Family Medical History: Cancer Additional Family Medical History / Comment(s): 2 brothers have MS Medications and Allergies Home Medications Medication Instructions Recorded Confirmed Type Dicyclomine HCl 20 mg PO DAILY 05/24/14 06/26/18 History Levothyroxine Sodium [Synthroid] 100 mcg PO DAILY 05/24/14 06/26/18 History Omeprazole 40 mg PO DAILY 05/24/14 06/26/18 History metFORMIN HCL 1,000 mg PO DAILY 05/24/14 06/26/18 History Nortriptyline [Pamelor] 25 mg PO HS 02/23/15 06/26/18 History Metoprolol Succinate (ER) [Toprol 100 mg PO DAILY 10/11/16 06/26/18 History XL] Tamsulosin [Flomax] 0.4 mg PO DAILY 10/11/16 06/26/18 History amLODIPine [Norvasc] 5 mg PO DAILY 10/11/16 06/26/18 History Aspirin EC [Ecotrin Low Dose] 81 mg PO DAILY 12/26/16 06/26/18 History Gabapentin [Neurontin] 100 mg PO HS 01/26/18 06/26/18 History Isosorbide Mononitrate ER [Imdur] 30 mg PO DAILY 01/26/18 06/26/18 History clonazePAM [KlonoPIN] 0.5 mg PO DAILY PRN 01/26/18 06/26/18 History Loperamide [Imodium] 2 mg PO DAILY PRN 04/13/18 06/26/18 History Allergies Allergy/AdvReac Type Severity Reaction Status Date / Time No Known Allergies Allergy Verified 06/26/18 23:45 Physical Exam Vitals: Vital Signs Temp Pulse Pulse Resp BP BP Pulse Ox 06/27/18 16:00 97.6 F 62 16 127/67 97 06/27/18 12:00 97.9 F 68 16 130/78 97 06/27/18 08:00 97.5 F L 65 18 144/76 98 06/27/18 04:00 18 06/27/18 03:55 97.5 F L 74 18 121/71 95 06/27/18 00:00 18 06/26/18 23:40 97.5 F L 70 16 155/79 98 06/26/18 22:43 96.9 F L 83 18 106/72 99 06/26/18 21:41 75 18 111/75 98 06/26/18 20:46 82 18 115/70 99 06/26/18 20:08 98.8 F 78 18 133/72 100 06/26/18 19:46 97.3 F L 81 18 133/69 95 Intake and Output 06/27/18 06/27/18 06/27/18 06:59 14:59 22:59 Other: Voiding Method Toilet Toilet # Voids 1 Weight 101.6 kg - Constitutional General appearance: Present: average body habitus, cooperative, no acute distress - EENT Eyes: Present: anicteric sclerae, EOMI, PERRLA, normal appearance ENT: Present: hearing grossly normal, normal oropharynx Ears: bilateral: normal - Neck Neck: Present: normal ROM. Absent: lymphadenopathy, rigidity, thyromegaly Carotids: negative: bruit present Thyroid: bilateral: normal size, negative: enlarged, nodule - Respiratory Respiratory: bilateral: CTA, negative: rales, rhonchi, wheezing - Cardiovascular Rhythm: regular Heart sounds: normal: S1, S2 Abnormal Heart Sounds: Absent: systolic murmur, diastolic murmur - Gastrointestinal General gastrointestinal: Present: normal bowel sounds, soft. Absent: distended , organomegaly, tenderness - Genitourinary Genitourinary Comment(s): deferred - Integumentary Integumentary: Present: normal turgor. Absent: jaundiced, rash, ulcer - Neurologic Neurologic: Present: CNII-XII intact. Absent: focal deficits - Musculoskeletal Musculoskeletal: Present: gait normal, strength equal bilaterally - Psychiatric Psychiatric: Present: A&O x's 3, appropriate affect, intact judgment & insight Results CBC & Chem 7: 06/26/18 19:53 06/26/18 19:53 Labs: Abnormal Lab Results - Last 24 Hours (Table) 06/26/18 06/26/18 06/26/18 Range/Units 19:53 19:53 19:53 RBC 4.26 L (4.30-5.90) m/uL Hgb 12.8 L (13.0-17.5) gm/dL Hct 38.9 L (39.0-53.0) % Plt Count 125 L (150-450) k/uL Lymphocytes # 0.8 L (1.0-4.8) k/uL BUN 33 H (9-20) mg/dL Creatinine 1.70 H (0.66-1.25) mg/dL Glucose 179 H (74-99) mg/dL POC Glucose (mg/dL) (75-99) mg/dL Total Creatine Kinase 355 H (55-170) U/L CK-MB (CK-2) 4.4 H* (0.0-2.4) ng/mL 06/27/18 06/27/18 06/27/18 Range/Units 01:05 07:04 07:50 RBC (4.30-5.90) m/uL Hgb (13.0-17.5) gm/dL Hct (39.0-53.0) % Plt Count (150-450) k/uL Lymphocytes # (1.0-4.8) k/uL BUN (9-20) mg/dL Creatinine (0.66-1.25) mg/dL Glucose (74-99) mg/dL POC Glucose (mg/dL) 123 H (75-99) mg/dL Total Creatine Kinase 281 H 224 H (55-170) U/L CK-MB (CK-2) 3.5 H* 3.3 H* (0.0-2.4) ng/mL 06/27/18 06/27/18 Range/Units 11:52 16:59 RBC (4.30-5.90) m/uL Hgb (13.0-17.5) gm/dL Hct (39.0-53.0) % Plt Count (150-450) k/uL Lymphocytes # (1.0-4.8) k/uL BUN (9-20) mg/dL Creatinine (0.66-1.25) mg/dL Glucose (74-99) mg/dL POC Glucose (mg/dL) 137 H 127 H (75-99) mg/dL Total Creatine Kinase (55-170) U/L CK-MB (CK-2) (0.0-2.4) ng/mL Thrombosis Risk Factor Assmnt - Choose All That Apply Each Risk Factor Represents 2 Points: Age 61-74 years Thrombosis Risk Factor Assessment Total Risk Factor Score: 2 Thrombosis Risk Factor Assessment Level: Low Risk Assessment and Plan Plan: 1. Chest pain - admit the patient to cardiac telemetry and monitor cardiac enzymes and EKG - We will resume all home medications - Consult cardiology for further recommendations 2. Hypertension; Stable on Norvasc 5 mg daily along with Toprol 100 mg daily 3. Coronary artery disease status post stent placement; Continue with aspirin, beta blockers and nitrates 4. Hypothyroidism; Continue with levothyroxine 100 mcg daily 5. DVT prophylaxis CODE STATUS; full code Time with Patient: Greater than 30
[2018-06-28 16:01] VITALS: BP 130/72; PULSE 60; RESP 16; TEMP 97.9
== END 2018-06-28 16:26 | disposition home or self-care (01) ==
LOC: EC 19:41 → 3OBS 22:19
PROVIDERS: ADMIT Hospitalist; ATTEND Hospitalist
DX: R07.89 Other chest pain (principal); R10.9 Unspecified abdominal pain; I10 Essential (primary) hypertension; I25.10 Atherosclerotic heart disease of native coronary artery without angina pectoris; Z95.5 Presence of coronary angioplasty implant and graft; K21.9 Gastro-esophageal reflux disease without esophagitis; R05 Cough; E03.9 Hypothyroidism, unspecified; E11.9 Type 2 diabetes mellitus without complications; N40.0 Benign prostatic hyperplasia without lower urinary tract symptoms; M19.90 Unspecified osteoarthritis, unspecified site; K57.90 Diverticulosis of intestine, part unspecified, without perforation or abscess without bleeding; F32.9 Major depressive disorder, single episode, unspecified; Z79.84 Long term (current) use of oral hypoglycemic drugs; Z79.82 Long term (current) use of aspirin; Z79.890 Hormone replacement therapy; Z79.899 Other long term (current) drug therapy; Z94.81 Bone marrow transplant status; Z98.42 Cataract extraction status, left eye; Z98.41 Cataract extraction status, right eye; Z96.1 Presence of intraocular lens; Z90.49 Acquired absence of other specified parts of digestive tract; Z90.89 Acquired absence of other organs; I25.2 Old myocardial infarction; Z87.442 Personal history of urinary calculi; Z85.830 Personal history of malignant neoplasm of bone; Z92.21 Personal history of antineoplastic chemotherapy; Z87.898 Personal history of other specified conditions; Z87.19 Personal history of other diseases of the digestive system; Z82.49 Family history of ischemic heart disease and other diseases of the circulatory system; Z83.3 Family history of diabetes mellitus; Z82.3 Family history of stroke; Z82.0 Family history of epilepsy and other diseases of the nervous system
CPT/HCPCS: 99285 ×2; 96374 ×2; 96376 ×2; 36415; 93005; 93306; 83880; 80053; 82550 ×2; 82553 ×2; 83690; 83735; 84484 ×2; 85025; 85610; 85730; 71046; 74150; G0378 ×3; J2270 ×3

== ENCOUNTER 2018-07-29 16:29 | Inpatient (IN) | payer MEDICARE, OTHER ==
[2018-07-29] MEDS ORDERED: ASPIRIN 81 MG PO STA (16:46)
[2018-07-29] MEDS ORDERED: NITROGLYCERIN SL TABS 0.4 MG TAB SUBLINGUAL STA (16:46)
--- NOTE | 2018-07-29 16:51 | ED ---
Chest Pain HPI - General Chief Complaint: Chest Pain Stated Complaint: chest pain Time Seen by Provider: 07/29/18 16:35 Source: patient, RN notes reviewed Mode of arrival: wheelchair Limitations: no limitations - History of Present Illness Initial Comments: This is a 72-year-old male with a history of bone cancer and heart disease with 7 stents in the past who states he had the onset of sudden left-sided chest pain and lower midsternal pain was sharp in nature 8+ out of 10 in severity currently now only 8 out of 10 in severity while he was at rest he has no cough fevers chills nausea vomiting sweats nothing seems to make it better or worse. He did call his doctor was told come the emergency department. MD Complaint: chest pain - Related Data Home Medications Medication Instructions Recorded Confirmed Dicyclomine HCl 20 mg PO DAILY 05/24/14 07/29/18 Levothyroxine Sodium [Synthroid] 100 mcg PO DAILY 05/24/14 07/29/18 Omeprazole 40 mg PO DAILY 05/24/14 07/29/18 metFORMIN HCL 1,000 mg PO DAILY 05/24/14 07/29/18 Nortriptyline [Pamelor] 25 mg PO HS 02/23/15 07/29/18 Metoprolol Succinate (ER) [Toprol 100 mg PO DAILY 10/11/16 07/29/18 XL] Tamsulosin [Flomax] 0.4 mg PO DAILY 10/11/16 07/29/18 amLODIPine [Norvasc] 5 mg PO DAILY 10/11/16 07/29/18 Aspirin EC [Ecotrin Low Dose] 81 mg PO DAILY 12/26/16 07/29/18 Gabapentin [Neurontin] 100 mg PO HS 01/26/18 07/29/18 Isosorbide Mononitrate ER [Imdur] 30 mg PO DAILY 01/26/18 07/29/18 clonazePAM [KlonoPIN] 0.5 mg PO DAILY PRN 01/26/18 07/29/18 Loperamide [Imodium] 2 mg PO DAILY PRN 04/13/18 07/29/18 Allergies Allergy/AdvReac Type Severity Reaction Status Date / Time No Known Allergies Allergy Verified 07/29/18 17:36 Review of Systems ROS Statement: Those systems with pertinent positive or pertinent negative responses have been documented in the HPI. ROS Other: All systems not noted in ROS Statement are negative. EKG Findings - EKG Results: EKG: interpreted by ERMD, sinus rhythm (EKG showed normal sinus rhythm of 89. 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 [facility], chronic intermittedt R lower abdominal pain with etiology unknown, NIDDM type II , BPH, rectal bleed, diverticulosis, kidney stones, pt denies any kidney disease other than stones."CHIPPED DISC" d/t faLL IN NOVEMBER Last Myocardial Infarction Date:: 2014 History of Any Multi-Drug Resistant Organisms: None Reported Past Surgical History: Adenoidectomy, Appendectomy, Cholecystectomy, Heart Catheterization With Stent, Hernia Repair, Orthopedic Surgery, Tonsillectomy Additional Past Surgical History / Comment(s): blood glucose monitor implanted rt abd-pt stated readings go right to the office.Bilateral carpal tunnel, bone spur removals to bilateral heels and FEET, X7 cardiac STENTS, B/L KNEE BONE SPURS, CATARACTS JA with lens implants, JA INGUINAL HERNIA REPAIR AND UMBILLICAL. removal of malignant tumor from back,EGD 06-04-17, RT LEG SX FOR TORN LIGAMENT."WAS BORN W/ OVERSIZED LIVER HAD SX TO REDUCE IT'S SIZE" Past Anesthesia/Blood Transfusion Reactions: No Reported Reaction Additional Past Anesthesia/Blood Transfusion Reaction / Comment(s): Pt states he has received blood in the past without reaction. Date of Last Stent Placement:: 2014 Past Psychological History: Depression Smoking Status: Never smoker Past Alcohol Use History: None Reported Past Drug Use History: None Reported - Past Family History Father Family Medical History: Myocardial Infarction ([place]) Additional Family Medical History / Comment(s): PTBA Mother Family Medical History: CVA/TIA, Diabetes Mellitus Additional Family Medical History / Comment(s): Mother of a CVA at the age of 82 yrs. Brother(s) Family Medical History: Cancer Additional Family Medical History / Comment(s): 2 brothers have MS General Exam - General Exam Comments Initial Comments: This is a well-developed well-nourished awake alert oriented 3 male Limitations: no limitations General appearance: alert, in no apparent distress Head exam: Present: atraumatic, normocephalic, normal inspection Eye exam: Present: normal appearance, PERRL, EOMI. Absent: scleral icterus, conjunctival injection, periorbital swelling ENT exam: Present: normal exam, mucous membranes moist Neck exam: Present: normal inspection. Absent: tenderness, meningismus, lymphadenopathy Respiratory exam: Present: normal lung sounds bilaterally, chest wall tenderness (Reproducible tenderness palpation over left costal sternal margin.) . Absent: respiratory distress, wheezes, rales, rhonchi, stridor Cardiovascular Exam: Present: regular rate, normal rhythm, normal heart sounds. Absent: systolic murmur, diastolic murmur, rubs, gallop, clicks GI/Abdominal exam: Present: soft, normal bowel sounds. Absent: distended, tenderness, guarding, rebound, rigid Extremities exam: Present: normal inspection, full ROM, normal capillary refill. Absent: tenderness, pedal edema, joint swelling, calf tenderness Back exam: Present: normal inspection Neurological exam: Present: alert, oriented X3, CN II-XII intact Psychiatric exam: Present: normal affect, normal mood Skin exam: Present: warm, dry, intact, normal color. Absent: rash Course Vital Signs 07/29/18 07/29/18 07/29/18 16:30 17:00 17:05 Temperature 98.1 F 97.4 F L Pulse Rate 89 99 94 Pulse Rate [ Pulse Oximetery ] Respiratory 18 18 18 Rate Blood Pressure 159/78 137/73 145/78 O2 Sat by Pulse 95 97 97 Oximetry 07/29/18 07/29/18 17:10 18:28 Temperature Pulse Rate 95 81 Pulse Rate [ 99 Pulse Oximetery ] Respiratory 16 Rate Blood Pressure 132/77 151/84 O2 Sat by Pulse 97 99 Oximetry - Reevaluation(s) Reevaluation #1: 07/29/18 18:36 (He gets some relief from the chest pain after nitroglycerin and aspirin. Chest Pain MDM - MDM I did review the imaging and report no acute findings. Patient examined relief from nitroglycerin and aspirin chest pain. I did discuss findings with him and with Dr. Adamson patient will be admitted for evaluation by cardiology. Some this pain is reproducible is unclear whether this represents accommodation of unstable angina with chest wall pain. Critical Care Time Critical Care Time: Yes Critical Care Time: 31 minutes of critical care time which includes initial presentation with history physical labs x-rays reevaluation patient 2 occasions review the imaging and lab work. Discussed with the patient regarding findings discussed with the beta physician admission orders and documentation of the above Disposition Clinical Impression: Chest pain, Unstable angina, Chest wall pain Disposition: ADMITTED IP TO THIS [facility] Condition: Stable Referrals: Micheal Adamson MD [Primary Care Provider] - 1-2 days
[2018-07-29 17:08] LABS: Basophils % (A) 1 %; Eosinophils # (A) 0.1 k/uL (0-0.7); Eosinophils % (A) 2 %; HCT 42.8 % (39.0-53.0); Lymphocytes % (A) 23 %; MCH 30.8 pg (25.0-35.0); MCHC 32.6 g/dL (31.0-37.0); MCV 94.4 fL (80.0-100.0); Mean Platelet Volume 7.8; Monocytes # (A) 0.3 k/uL (0-1.0); Monocytes % (A) 6 %; Neutrophils # (A) 2.7 k/uL (1.3-7.7); Neutrophils % (A) 64 %; Platelet Count 113 k/uL (150-450); RBC 4.54 m/uL (4.30-5.90); RDW 13.7 % (11.5-15.5); WBC 4.2 k/uL (3.8-10.6)
[2018-07-29 17:18] LABS: Albumin 4.5 g/dL (3.5-5.0); Calcium 9.6 mg/dL (8.4-10.2); Magnesium 1.6 mg/dL (1.6-2.3); Total Bilirubin 0.6 mg/dL (0.2-1.3); Total Protein 7.5 g/dL (6.3-8.2)
[2018-07-29 17:27] LABS: Creatine Kinase 90 U/L (55-170)
[2018-07-29 17:30] LABS: D-Dimer 0.2 mg/L FEU (<0.60); INR 1.1 (<1.2); Partial Thromboplastin Time 23.5 sec (22.0-30.0); Prothrombin Time 10.8 sec (9.0-12.0)
[2018-07-29 17:41] LABS: Creatine Kinase MB 1.5 ng/mL (0.0-2.4); Troponin I <0.012 ng/mL (0.000-0.034)
[2018-07-29] MEDS ORDERED: KETOROLAC 30 MG/ML 1 ML VIAL IVP STA (18:10)
--- NOTE | 2018-07-29 18:14 | XR ---
EXAMINATION TYPE: XR chest 2V DATE OF EXAM: 07/29/2018 COMPARISON: 06/26/2018 HISTORY: Chest pain TECHNIQUE: Frontal and lateral views of the chest are obtained. FINDINGS: Heart and mediastinum are normal. Lungs are clear. Diaphragm is normal. There is spurring in the thoracic spine. IMPRESSION: No active cardiopulmonary disease. No change.
[2018-07-29] MEDS ORDERED: HEPARIN SODIUM,PORCINE 5,000 UNIT/ML 1 ML VIAL IV ONE (18:39)
[2018-07-29] MEDS ORDERED: NITROGLYCERIN SL TABS 0.4 MG TAB SUBLINGUAL PRN (18:39)
[2018-07-29] MEDS ORDERED: clonazePAM 0.5 MG TAB PO PRN (18:41)
[2018-07-29] MEDS ORDERED: LOPERAMIDE 2 MG CAP PO PRN (18:41)
[2018-07-29] MEDS ORDERED: SODIUM CHLORIDE 0.9% 1,000 ML IV SCH (18:45)
[2018-07-29] MEDS: HEPARIN SOD,PORK IN 0.45% NACL 25,000 UNIT in 0.45% NACL 1 500ML.BAG IV SCH (19:13)
[2018-07-29] MEDS: GABAPENTIN 100 MG CAP PO SCH (20:12)
[2018-07-29 20:29] LABS: Glucose,Whole Blood 128 mg/dL (75-99)
[2018-07-29] MEDS: INSULIN ASPART 100 UNIT/ML 1 ML 10 ML VIAL SQ SCH (20:29)
[2018-07-29] MEDS ORDERED: MAG HYDROX/AL HYDROX/SIMETH 30 ML CUP PO PRN (21:15)
[2018-07-29] MEDS: NORTRIPTYLINE 25 MG CAP PO SCH (21:31)
[2018-07-30] MEDS: NITROGLYCERIN OINT 1 INCH/GM PACKET TOPICAL SCH ×6 (01:14→23:40)
[2018-07-30 02:09] LABS: Creatine Kinase MB 1.7 ng/mL (0.0-2.4)
[2018-07-30 02:25] LABS: Troponin I 0.077 ng/mL (0.000-0.034)
[2018-07-30] MEDS: LEVOTHYROXINE 100 MCG TAB PO SCH (06:27)
[2018-07-30 06:51] LABS: Glucose,Whole Blood 108 mg/dL (75-99)
[2018-07-30 07:54] LABS: Cholesterol 169 mg/dL (<200); HDL Cholesterol 43 mg/dL (40-60); LDL Cholesterol,Calculated 102 mg/dL (0-99); Triglycerides 118 mg/dL (<150)
[2018-07-30 08:16] LABS: Troponin I 0.271 ng/mL (0.000-0.034)
[2018-07-30 08:17] LABS: Creatine Kinase MB 3.4 ng/mL (0.0-2.4)
[2018-07-30] MEDS ORDERED: MORPHINE SULFATE 2 MG/ML SYRINGE IVP PRN (08:22)
[2018-07-30] MEDS ORDERED: ASPIRIN 81 MG PO SCH (09:00)
[2018-07-30] MEDS ORDERED: ASPIRIN 325 MG TAB PO SCH (09:00)
[2018-07-30] MEDS ORDERED: ISOSORBIDE MONONITRATE ER 30 MG TAB.ER.24H PO SCH (09:00)
[2018-07-30] MEDS ORDERED: metFORMIN 500 MG TAB PO SCH (09:00)
[2018-07-30] MEDS ORDERED: ATORVASTATIN 80 MG TAB PO STA (09:22)
[2018-07-30] MEDS: INSULIN ASPART 100 UNIT/ML 1 ML 10 ML VIAL SQ SCH ×4 (09:26→21:23)
[2018-07-30] MEDS: amLODIPine 5 MG TAB PO SCH (09:31)
[2018-07-30] MEDS: TAMSULOSIN 0.4 MG CAP.ER.24H PO SCH (09:31)
[2018-07-30 09:40] LABS: Calcium 8.8 mg/dL (8.4-10.2); Potassium 4.1 mmol/L (3.5-5.1)
[2018-07-30] MEDS: PANTOPRAZOLE 40 MG TABLET PO SCH (09:48)
[2018-07-30] MEDS: DICYCLOMINE 20 MG TAB PO SCH (09:48)
[2018-07-30] MEDS: METOPROLOL SUCCINATE (ER) 100 MG TAB.ER.24H PO SCH (09:48)
[2018-07-30] MEDS: SODIUM CHLORIDE 0.9% 1,000 ML IV SCH (09:50)
--- NOTE | 2018-07-30 10:14 | P.CRDCN ---
History of Present Illness History of present illness: Mr. Ling is a pleasant 72-year-old male past medical history significant for coronary artery disease s/p multiple stenting, hypertension, dyslipidemia, diabetes mellitus, hypothyroidism, chronic kidney disease, bone marrow transplant 2016 and gastroesophageal reflux disease. He follows with Dr. Hammer in the office. We have been asked to see him in consultation for chest pain. He states he was working in his garage on one of his mowers and there was a flat tire so he pushed it into the garage. While he was pushing it he felt an intense tight squeezing sensation in the left precordial/LUQ abdominal pain that radiated to the mid-sternal region associated with shortness of breath, light headed and extreme diaphoresis. It took him 15 minutes to walk into the house due to the pain. When he got in he checked his blood pressure and it was over 190 systolic. His symptoms persisted until he came to the hospital and was given SL nitro which made his pain go away. He is having chest pain at the time of my exam with no associated symptoms. His pain is worse with deep inspiration and is mildly reproducible on palpation. EKG reveals sinus mechanism with no acute ST or T-wave abnormalities. Chest xray negative for an acute cardiopulmonary process. Laboratory data reviewed, hgb 14.0, plt 113, d-dimer 0.2, sodium 141, potassium 4.1, magnesium 1.6, creatinine on admission 1.34 repeat today 1.44 GFR 54/49, troponin less than 0.012, 0.077 and 0.271, LDL 102, HDL 43. Current cardiac medications include amlodipine 5 mg daily, toprol 100 mg daily, imdur 30 mg daily and aspirin 81 mg daily. He also takes levothyroxine, neurontin, pamelor, flomax and metformin. Per the patient his last stent was approximately 2 years ago at [facility] from Dr. Hui. Records are unavailable at this time. He also states he had stents placed at [facility]. Most recent echocardiogram obtained 06/27/2018 reveals preserved LV systolic function with EF 50-55%, aortic stenosis with mean gradient across the valve of 12.06 mmHg. Most recent Lexiscan stress test performed 05/20/2018 negative for reversible cardiac ischemia with fixed defect of inferior wall. Review of Systems At the time of my exam: CONSTITUTIONAL: Denies fever. Denies chills. EYES: Denies blurred vision. Denies vision changes. Denies eye pain. EARS, NOSE, MOUTH & THROAT: Denies headache. Denies sore throat. Denies ear pain. CARDIOVASCULAR: Complains of chest pain. Denies shortness of breath. Denies orthopnea. Denies PND. Denies palpitations. RESPIRATORY: Denies cough. GASTROINTESTINAL: Denies abdominal pain. Denies diarrhea. Denies constipation. Denies nausea. Denies vomiting. MUSCULOSKELETAL: Denies myalgias. INTEGUMENTARY: Denies pruitis. Denies rash. NEUROLOGIC: Denies numbness. Denies tingling. Denies weakness. PSYCHIATRIC: Denies anxiety. Denies depression. ENDOCRINE: Denies fatigue. Denies weight change. Denies polydipsia. Denies polyurina. GENITOURINARY: Denies burning, hematuria or urgency with micturation. HEMATOLOGIC: Denies history of anemia. Denies bleeding. Past Medical History Past Medical History: Coronary Artery Disease (CAD), Cancer, Chest Pain / Angina , Diabetes Mellitus, GERD/Reflux, Hypertension, Myocardial Infarction ([place]), Osteoarthritis (OA), Prostate Disorder, Thyroid Disorder Additional Past Medical History / Comment(s): having abdominal pain and rectal bleeding,2015 diagnosed with bone cancer after found to have cancerous tumor on his back-removed and pt had chemo, 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 [facility], chronic intermittedt R lower abdominal pain with etiology unknown, NIDDM type II , BPH, rectal bleed, diverticulosis, kidney stones, pt denies any kidney disease other than stones."CHIPPED DISC" d/t faLL IN NOVEMBER Last Myocardial Infarction Date:: 2014 History of Any Multi-Drug Resistant Organisms: None Reported Past Surgical History: Adenoidectomy, Appendectomy, Cholecystectomy, Heart Catheterization With Stent, Hernia Repair, Orthopedic Surgery, Tonsillectomy Additional Past Surgical History / Comment(s): Bilateral carpal tunnel, bone spur removals to bilateral heels and FEET, X7 cardiac STENTS, B/L KNEE BONE SPURS, CATARACTS JA with lens implants, JA INGUINAL HERNIA REPAIR AND UMBILLICAL. removal of malignant tumor from back,EGD 06-04-17, RT LEG SX FOR TORN LIGAMENT."WAS BORN W/ OVERSIZED LIVER HAD SX TO REDUCE IT'S SIZE" Past Anesthesia/Blood Transfusion Reactions: No Reported Reaction Additional Past Anesthesia/Blood Transfusion Reaction / Comment(s): Pt states he has received blood in the past without reaction. Date of Last Stent Placement:: 2014 Past Psychological History: Depression Additional Psychological History / Comment(s): Pt states he is care gier to brother who has MS, is in a wheelchair that lives with him.HAS A RAMP Pt is independent. 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 Smoking Status: Never smoker Past Alcohol Use History: None Reported Past Drug Use History: None Reported - Past Family History Father Family Medical History: Myocardial Infarction ([place]) Additional Family Medical History / Comment(s): PTBA Mother Family Medical History: CVA/TIA, Diabetes Mellitus Additional Family Medical History / Comment(s): Mother of a CVA at the age of 82 yrs. Brother(s) Family Medical History: Cancer Additional Family Medical History / Comment(s): 2 brothers have MS Medications and Allergies Home Medications Medication Instructions Recorded Confirmed Type Dicyclomine HCl 20 mg PO DAILY 05/24/14 07/29/18 History Levothyroxine Sodium [Synthroid] 100 mcg PO DAILY 05/24/14 07/29/18 History Omeprazole 40 mg PO DAILY 05/24/14 07/29/18 History metFORMIN HCL 1,000 mg PO DAILY 05/24/14 07/29/18 History Nortriptyline [Pamelor] 25 mg PO HS 02/23/15 07/29/18 History Metoprolol Succinate (ER) [Toprol 100 mg PO DAILY 10/11/16 07/29/18 History XL] Tamsulosin [Flomax] 0.4 mg PO DAILY 10/11/16 07/29/18 History amLODIPine [Norvasc] 5 mg PO DAILY 10/11/16 07/29/18 History Aspirin EC [Ecotrin Low Dose] 81 mg PO DAILY 12/26/16 07/29/18 History Gabapentin [Neurontin] 100 mg PO HS 01/26/18 07/29/18 History Isosorbide Mononitrate ER [Imdur] 30 mg PO DAILY 01/26/18 07/29/18 History clonazePAM [KlonoPIN] 0.5 mg PO DAILY PRN 01/26/18 07/29/18 History Loperamide [Imodium] 2 mg PO DAILY PRN 04/13/18 07/29/18 History Allergies Allergy/AdvReac Type Severity Reaction Status Date / Time No Known Allergies Allergy Verified 07/29/18 17:36 Physical Exam Vitals: Vital Signs Temp Pulse Pulse Resp BP BP Pulse Ox 07/30/18 07:17 97.9 F 67 18 147/82 98 07/30/18 03:57 18 07/30/18 03:35 98.1 F 74 16 133/85 97 07/29/18 23:20 18 07/29/18 22:50 98.1 F 69 18 135/76 95 07/29/18 20:00 16 99 07/29/18 19:30 97.9 F 79 16 169/78 98 07/29/18 19:16 97 F L 83 18 137/66 97 07/29/18 18:28 81 16 151/84 99 07/29/18 17:10 95 99 132/77 97 07/29/18 17:05 94 18 145/78 97 07/29/18 17:00 97.4 F L 99 18 137/73 97 07/29/18 16:30 98.1 F 89 18 159/78 95 Intake and Output 07/29/18 07/30/18 07/30/18 22:59 06:59 14:59 Other: Voiding Method Toilet Toilet Toilet # Voids 3 Weight 97.5 kg Blood pressure 147/82 her rate 67 afebrile maintaining oxygen saturation on room air GENERAL: This is a 72-year-old male in no apparent distress at the time of my examination. HEENT: Head is atraumatic, normocephalic. Pupils are equal, round. Sclerae anicteric. Conjunctivae are clear. Mucous membranes of the mouth are moist. Neck is supple. There is no jugular venous distention. No carotid bruit is heard. LUNGS: Clear to auscultation no wheezes, rales or rhonchi. No chest wall tenderness is noted on palpation or with deep breathing. HEART: Regular rate and rhythm with systolic ejection murmur at the base, no rubs or gallops. S1 and S2 heard. ABDOMEN: Soft, nontender. Bowel sounds are heard. No organomegaly noted. EXTREMITIES: No evidence of peripheral edema and no calf tenderness noted. VASCULAR: Radial and dorsalis pedis pulses palpated, no evidence of clubbing. NEUROLOGIC: Patient is awake, alert and oriented x3. Results 07/29/18 16:50 07/29/18 16:50 Cardiac Enzymes 07/29/18 07/29/18 07/30/18 Range/Units 16:50 16:50 00:58 AST 34 (17-59) U/L CK-MB (CK-2) 1.5 1.7 (0.0-2.4) ng/mL Troponin I <0.012 0.077 H* (0.000-0.034) ng/mL 07/30/18 Range/Units 06:44 AST (17-59) U/L CK-MB (CK-2) 3.4 H (0.0-2.4) ng/mL Troponin I 0.271 H* (0.000-0.034) ng/mL Coagulation 07/29/18 07/30/18 07/30/18 Range/Units 16:50 00:58 06:44 PT 10.8 (9.0-12.0) sec APTT 23.5 47.5 H 40.0 H (22.0-30.0) sec Lipids 07/30/18 Range/Units 06:44 Triglycerides 118 (<150) mg/dL Cholesterol 169 (<200) mg/dL HDL Cholesterol 43 (40-60) mg/dL CBC 07/29/18 Range/Units 16:50 WBC 4.2 (3.8-10.6) k/uL RBC 4.54 (4.30-5.90) m/uL Hgb 14.0 (13.0-17.5) gm/dL Hct 42.8 (39.0-53.0) % Plt Count 113 L (150-450) k/uL Comprehensive Metabolic Panel 07/29/18 Range/Units 16:50 Sodium 143 (137-145) mmol/L Potassium 4.0 (3.5-5.1) mmol/L Chloride 108 H (98-107) mmol/L Carbon Dioxide 25 (22-30) mmol/L BUN 23 H (9-20) mg/dL Creatinine 1.34 H (0.66-1.25) mg/dL Glucose 174 H (74-99) mg/dL Calcium 9.6 (8.4-10.2) mg/dL AST 34 (17-59) U/L ALT 33 (21-72) U/L Alkaline Phosphatase 80 (38-126) U/L Total Protein 7.5 (6.3-8.2) g/dL Albumin 4.5 (3.5-5.0) g/dL Current Medications Generic Name Dose Route Start Last Admin Trade Name Freq PRN Reason Stop Dose Admin Al Hydroxide/Mg Hydroxide 30 ml 07/29/18 21:15 07/29/18 21:31 Maalox PO 30 ml Q4HR PRN Administration GI Upset Amlodipine Besylate 5 mg 07/30/18 09:00 Norvasc PO DAILY [facility] Aspirin 81 mg 07/30/18 09:00 Aspirin PO DAILY [facility] Clonazepam 0.5 mg 07/29/18 18:41 Klonopin PO DAILY PRN Anxiety Dicyclomine HCl 20 mg 07/30/18 09:00 Bentyl PO DAILY [facility] Gabapentin 100 mg 07/29/18 21:00 07/29/18 20:12 Neurontin PO 100 mg HS JULIANA Administration Heparin Sodium/Sodium Chloride 500 mls @ 20 mls/hr 07/29/18 18:45 07/29/18 19 :13 25,000 unit/ Sodium Chloride IV 10.255 units/kg/hr .Q24H JULIANA 20 mls/hr Administration Protocol 10.255 UNITS/KG/HR Sodium Chloride 1,000 mls @ 20 mls/hr 07/29/18 18:45 07/29/18 19:11 Saline 0.9% IV 20 mls/hr .Q24H JULIANA Administration Insulin Aspart 0 unit 07/29/18 21:00 07/29/18 20:29 Novolog SQ Not Given ACHS [facility] Protocol Levothyroxine Sodium 100 mcg 07/30/18 06:30 07/30/18 06:27 Synthroid PO Not Given DAILY@0630 [facility] Loperamide HCl 2 mg 07/29/18 18:41 Imodium PO DAILY PRN Diarrhea Metformin HCl 1,000 mg 07/30/18 09:00 Glucophage PO DAILY [facility] Metoprolol Succinate 100 mg 07/30/18 09:00 Toprol Xl PO DAILY [facility] Morphine Sulfate 2 mg 07/30/18 08:22 Morphine Sulfate (Inj) IVP Q4HR PRN chest pain Nitroglycerin 0.4 mg 07/29/18 18:39 Nitrostat SUBLINGUAL Q5M PRN Chest Pain Nitroglycerin 0.5 inch 07/30/18 08:30 Nitro-Bid Oint TOPICAL Q6HR JULIANA Nortriptyline HCl 25 mg 07/29/18 21:00 07/29/18 21:31 Pamelor PO 25 mg HS JULIANA Administration Pantoprazole Sodium 40 mg 07/30/18 07:30 Protonix PO AC-BRKFST JULIANA Tamsulosin HCl 0.4 mg 07/30/18 09:00 Flomax PO DAILY JULIANA Intake and Output 07/29/18 07/30/18 07/30/18 22:59 06:59 14:59 Other: Voiding Method Toilet Toilet Toilet # Voids 3 Weight 97.5 kg 07/29/18 16:50 07/29/18 16:50 Assessment and Plan Assessment: ASSESSMENT Unstable angina Non ST elevated myocardial infarction, troponin peak 0.271. History of coronary artery disease s/p multiple stent placements, details unavailable Aortic stenosis, mean gradient 12 mmHg Chronic kidney disease, GFR 49. Stage 3a. Hypertension Dyslipidemia, not on statin Diabetes mellitus History of bone marrow transplant PLAN Obtain limited echo to check for change in LV function. Recommend proceeding with cardiac catheterization to further assess coronary arteries. I have discussed the risks, benefits and alternative therapies for the above-mentioned procedure and for both sedation/analgesia as well as necessary blood product administration, if indicated, as they pertain to this patient. The patient has indicated understanding and acceptance of the risks and procedures discussed. Questions have been answered appropriately and he is agreeable to move forward with above stated procedure. Case has been boarded for early afternoon today with his primary variety performer Dr. Hammer. IV hydration at 100cc/hour. Hold metformin today and for the next 48 hours. Add atorvastatin 80 mg daily. Further recommendations to follow based on clinical course. Thank you kindly for this consultation. Nurse Practitioner note has been reviewed, I agree with a documented findings and plan of care. Patient was seen and examined.
--- NOTE | 2018-07-30 10:45 | P.HPIM ---
History of Present Illness 72-year-old male presented the emergency room with complaints of chest pain radiating to arms and neck patient was diaphoretic and nauseous. Patient has history of coronary disease with stents in history of CO. Patient has history of cancer to his spine. Patient is diabetic2 has history of hypertension and aortic stenosis patient also has stage III chronic kidney disease Review of Systems Constitutional: Reports sweats, Reports weakness Cardiovascular: Reports chest pain Gastrointestinal: Reports nausea Past Medical History Past Medical History: Coronary Artery Disease (CAD), Cancer, Chest Pain / Angina , Diabetes Mellitus, GERD/Reflux, Hypertension, Myocardial Infarction ([place]), Osteoarthritis (OA), Prostate Disorder, Thyroid Disorder Additional Past Medical History / Comment(s): having abdominal pain and rectal bleeding,2015 diagnosed with bone cancer after found to have cancerous tumor on his back-removed and pt had chemo, 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 [facility], chronic intermittedt R lower abdominal pain with etiology unknown, NIDDM type II , BPH, rectal bleed, diverticulosis, kidney stones, pt denies any kidney disease other than stones."CHIPPED DISC" d/t faLL IN NOVEMBER Last Myocardial Infarction Date:: 2014 History of Any Multi-Drug Resistant Organisms: None Reported Past Surgical History: Adenoidectomy, Appendectomy, Cholecystectomy, Heart Catheterization With Stent, Hernia Repair, Orthopedic Surgery, Tonsillectomy Additional Past Surgical History / Comment(s): Bilateral carpal tunnel, bone spur removals to bilateral heels and FEET, X7 cardiac STENTS, B/L KNEE BONE SPURS, CATARACTS JA with lens implants, JA INGUINAL HERNIA REPAIR AND UMBILLICAL. removal of malignant tumor from back,EGD 06-04-17, RT LEG SX FOR TORN LIGAMENT."WAS BORN W/ OVERSIZED LIVER HAD SX TO REDUCE IT'S SIZE" Past Anesthesia/Blood Transfusion Reactions: No Reported Reaction Additional Past Anesthesia/Blood Transfusion Reaction / Comment(s): Pt states he has received blood in the past without reaction. Date of Last Stent Placement:: 2014 Past Psychological History: Depression Additional Psychological History / Comment(s): Pt states he is care gier to brother who has MS, is in a wheelchair that lives with him.HAS A RAMP Pt is independent. 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 Smoking Status: Never smoker Past Alcohol Use History: None Reported Past Drug Use History: None Reported - Past Family History Father Family Medical History: Myocardial Infarction ([place]) Additional Family Medical History / Comment(s): PTBA Mother Family Medical History: CVA/TIA, Diabetes Mellitus Additional Family Medical History / Comment(s): Mother of a CVA at the age of 82 yrs. Brother(s) Family Medical History: Cancer Additional Family Medical History / Comment(s): 2 brothers have MS Medications and Allergies Home Medications Medication Instructions Recorded Confirmed Type Dicyclomine HCl 20 mg PO DAILY 05/24/14 07/29/18 History Levothyroxine Sodium [Synthroid] 100 mcg PO DAILY 05/24/14 07/29/18 History Omeprazole 40 mg PO DAILY 05/24/14 07/29/18 History metFORMIN HCL 1,000 mg PO DAILY 05/24/14 07/29/18 History Nortriptyline [Pamelor] 25 mg PO HS 02/23/15 07/29/18 History Metoprolol Succinate (ER) [Toprol 100 mg PO DAILY 10/11/16 07/29/18 History XL] Tamsulosin [Flomax] 0.4 mg PO DAILY 10/11/16 07/29/18 History amLODIPine [Norvasc] 5 mg PO DAILY 10/11/16 07/29/18 History Aspirin EC [Ecotrin Low Dose] 81 mg PO DAILY 12/26/16 07/29/18 History Gabapentin [Neurontin] 100 mg PO HS 01/26/18 07/29/18 History Isosorbide Mononitrate ER [Imdur] 30 mg PO DAILY 01/26/18 07/29/18 History clonazePAM [KlonoPIN] 0.5 mg PO DAILY PRN 01/26/18 07/29/18 History Loperamide [Imodium] 2 mg PO DAILY PRN 04/13/18 07/29/18 History Allergies Allergy/AdvReac Type Severity Reaction Status Date / Time No Known Allergies Allergy Verified 07/29/18 17:36 Physical Exam Vitals: Vital Signs Temp Pulse Pulse Resp BP BP Pulse Ox 07/30/18 07:17 97.9 F 67 18 147/82 98 07/30/18 03:57 18 07/30/18 03:35 98.1 F 74 16 133/85 97 07/29/18 23:20 18 07/29/18 22:50 98.1 F 69 18 135/76 95 07/29/18 20:00 16 99 07/29/18 19:30 97.9 F 79 16 169/78 98 07/29/18 19:16 97 F L 83 18 137/66 97 07/29/18 18:28 81 16 151/84 99 07/29/18 17:10 95 99 132/77 97 07/29/18 17:05 94 18 145/78 97 07/29/18 17:00 97.4 F L 99 18 137/73 97 07/29/18 16:30 98.1 F 89 18 159/78 95 Intake and Output 07/29/18 07/30/18 07/30/18 22:59 06:59 14:59 Intake Total 266 Output Total 200 Balance 66 Intake: Intake, IV Titration 266 Amount Heparin Sod,Pork in 0.45% 266 NaCl 25,000 unit In 0.45 % NaCl 1 500ml.bag @ 10. 255 UNITS/KG/HR 20 mls/hr IV .Q24H [facility] Rx#: [id number] Output: Urine 200 Other: Voiding Method Toilet Toilet Toilet # Voids 3 Weight 97.5 kg - Constitutional General appearance: mild distress - EENT Eyes: PERRLA Ears: bilateral: normal - Neck Neck: normal ROM - Respiratory Respiratory: bilateral: CTA - Cardiovascular Rhythm: regular Abnormal Heart Sounds: systolic murmur - Gastrointestinal General gastrointestinal: soft - Integumentary Integumentary: normal - Neurologic Neurologic: CNII-XII intact - Psychiatric Psychiatric: A&O x's 3, appropriate affect, intact judgment & insight Results CBC & Chem 7: 07/29/18 16:50 07/30/18 06:44 Labs: Abnormal Lab Results - Last 24 Hours (Table) 07/29/18 07/29/18 07/29/18 Range/Units 16:50 16:50 20:26 Plt Count 113 L (150-450) k/uL APTT (22.0-30.0) sec Chloride 108 H (98-107) mmol/L BUN 23 H (9-20) mg/dL Creatinine 1.34 H (0.66-1.25) mg/dL Glucose 174 H (74-99) mg/dL POC Glucose (mg/dL) 128 H (75-99) mg/dL CK-MB (CK-2) (0.0-2.4) ng/mL Troponin I (0.000-0.034) ng/mL LDL Cholesterol, Calc (0-99) mg/dL 07/30/18 07/30/18 07/30/18 Range/Units 00:58 00:58 06:44 Plt Count (150-450) k/uL APTT 47.5 H (22.0-30.0) sec Chloride (98-107) mmol/L BUN (9-20) mg/dL Creatinine (0.66-1.25) mg/dL Glucose (74-99) mg/dL POC Glucose (mg/dL) (75-99) mg/dL CK-MB (CK-2) 3.4 H (0.0-2.4) ng/mL Troponin I 0.077 H* 0.271 H* (0.000-0.034) ng/mL LDL Cholesterol, Calc (0-99) mg/dL 07/30/18 07/30/18 07/30/18 Range/Units 06:44 06:44 06:44 Plt Count (150-450) k/uL APTT 40.0 H (22.0-30.0) sec Chloride 109 H (98-107) mmol/L BUN 31 H (9-20) mg/dL Creatinine 1.44 H (0.66-1.25) mg/dL Glucose 116 H (74-99) mg/dL POC Glucose (mg/dL) (75-99) mg/dL CK-MB (CK-2) (0.0-2.4) ng/mL Troponin I (0.000-0.034) ng/mL LDL Cholesterol, Calc 102 H (0-99) mg/dL 07/30/18 Range/Units 06:48 Plt Count (150-450) k/uL APTT (22.0-30.0) sec Chloride (98-107) mmol/L BUN (9-20) mg/dL Creatinine (0.66-1.25) mg/dL Glucose (74-99) mg/dL POC Glucose (mg/dL) 108 H (75-99) mg/dL CK-MB (CK-2) (0.0-2.4) ng/mL Troponin I (0.000-0.034) ng/mL LDL Cholesterol, Calc (0-99) mg/dL Chest x-ray: report reviewed Thrombosis Risk Factor Assmnt - Choose All That Apply Each Factor Represents 1 point: Obesity (BMI >25) Each Risk Factor Represents 2 Points: Age 61-74 years, Malignancy Thrombosis Risk Factor Assessment Total Risk Factor Score: 5 Thrombosis Risk Factor Assessment Level: High Risk Assessment and Plan Plan: Assessment Chest pain non-ST elevation CO positive troponins Aortic stenosis Stage III chronic kidney disease Coronary artery disease with stents and CO Cancer of the bone to back Diabetes type 2 Hypertension hypothyroidism BPH Plan Continue consultation with cardiology ,cardiac cath plan for this afternoon
--- NOTE | 2018-07-30 11:58 | ECHOF ---
Referral Reason:nstemi MEASUREMENTS -------- HEIGHT: 182.9 cm WEIGHT: 97.1 kg BP: 147/82 RVIDd: 3.4 cm (< 3.3) IVSd: 1.1 cm (0.6 - 1.1) LVIDd: 5.2 cm (3.9 - 5.3) LVPWd: 1.1 cm (0.6 - 1.1) IVSs: 1.4 cm LVIDs: 3.8 cm LVPWs: 1.4 cm LAESV Index (A-L): 21.89 ml/m FINDINGS -------- Sinus rhythm. This was a technically adequate study. Limited Study for assessment of left ventricular function. The left ventricular size is normal. There is mild concentric left ventricular hypertrophy. Overa ll left ventricular systolic function is normal with, an EF between 55 - 60 %. The right ventricle is mildly enlarged. Normal LA size by volume 22+/-6 ml/m2. RA appears enlarged. CONCLUSIONS -------- 1. Sinus rhythm. 2. This was a technically adequate study. 3. Limited Study for assessment of left ventricular function. 4. The left ventricular size is normal. 5. There is mild concentric left ventricular hypertrophy. 6. Overall left ventricular systolic function is normal with, an EF between 55 - 60 %. 7. The right ventricle is mildly enlarged. 8. Normal LA size by volume 22+/-6 ml/m2. 9. RA appears enlarged. AUTOMATIC BANDSAW TENDER: Andi Donnelly RDCS
[2018-07-30 12:06] LABS: Glucose,Whole Blood 113 mg/dL (75-99)
[2018-07-30] MEDS ORDERED: ASPIRIN 325 MG TAB PO STA (12:59)
[2018-07-30] MEDS ORDERED: IV FLUID CONTINUATION 1,000 ML IV ONE (13:11)
[2018-07-30] MEDS ORDERED: MIDAZOLAM 2 MG/2 ML VIAL ONE ×2 (13:23→19:17)
[2018-07-30] MEDS ORDERED: LIDOCAINE 1% INJ 10MG/ML (20 ML MDV) ONE ×2 (13:24→19:26)
[2018-07-30] MEDS ORDERED: fentaNYL (PF) 50 MCG/ML 2 ML AMP ONE ×2 (13:24→19:17)
[2018-07-30] MEDS ORDERED: fentaNYL (PF) 50 MCG/ML 2 ML AMP IVP ONE ×2 (13:25→19:28)
[2018-07-30] MEDS: MIDAZOLAM 2 MG/2 ML VIAL IVP ONE ×2 (13:25→13:37)
[2018-07-30] MEDS ORDERED: LIDOCAINE 1% INJ 10MG/ML (20 ML MDV) SQ ONE ×2 (13:28→19:33)
[2018-07-30] MEDS ORDERED: IOPAMIDOL-370 125ML BTL INJ ONE ×2 (13:43→20:18)
[2018-07-30] MEDS ORDERED: TICAGRELOR 90 MG TAB ONE (14:00)
[2018-07-30] MEDS ORDERED: HEPARIN SODIUM 1,000 UN/ML (10ML VL) ONE (14:00)
[2018-07-30] MEDS ORDERED: TICAGRELOR 90 MG TAB PO ONE (14:09)
[2018-07-30] MEDS ORDERED: HEPARIN SOD,PORK IN 0.45% NACL 25,000 UNIT in 0.45% NACL 1 500ML.BAG IV ONE (14:25)
[2018-07-30] MEDS: HEPARIN SOD,PORK IN 0.45% NACL 25,000 UNIT in 0.45% NACL 1 500ML.BAG IV SCH (16:41)
--- NOTE | 2018-07-30 16:43 | CC ---
CARDIAC CATHETERIZATION REPORT This patient has a prior history of multiple stents. The patient came to the hospital with a non-Q-wave myocardial infarction and in view of that, the patient was recommended cardiac catheterization for definitive diagnosis. PROCEDURE: The right groin was prepped and draped in the usual manner and the right femoral artery was entered using micropuncture needle. Subsequently a 6-Macanese sheath was placed in. Selective coronary angiography was then performed in multiple projections and left ventricular pressures were obtained. Patient tolerated the procedure well. Sheath was left in place. Moderate sedation was used for 20 minutes. HEMODYNAMICS: Left ventricular end-diastolic pressure was 16 mmHg prior to angiography. No gradient is noted across the aortic valve. SELECTIVE CORONARY ANGIOGRAPHY: Left main coronary artery is normal and patent. LAD is a good-caliber blood vessel and mid LAD in the distal part of the stent has in-stent restenosis with a 90% lesion. The circumflex coronary artery is a good-caliber blood vessel. Circumflex coronary artery itself has a 50% stenosis beyond the stent. Right coronary artery is a good-caliber blood vessel. PLV branch has a 40% stenosis. RECOMMENDATIONS: We will review the films with Dr. Cisse and consider stent to the LAD and possible FFR to circumflex. MMODL / IJN: [id number] /
[2018-07-30 17:22] LABS: Glucose,Whole Blood 122 mg/dL (75-99)
[2018-07-30] MEDS ORDERED: IV FLUID CONTINUATION 750 ML IV ONE (19:22)
[2018-07-30] MEDS ORDERED: MIDAZOLAM 2 MG/2 ML VIAL IVP ONE ×2 (19:28)
[2018-07-30] MEDS ORDERED: BIVALIRUDIN BOLUS 250 MG/50 ML IV ONE (19:34)
[2018-07-30] MEDS ORDERED: BIVALIRUDIN 250 MG in SODIUM CHLORIDE 0.9% 50 ML IV ONE (19:35)
[2018-07-30] MEDS ORDERED: NITROGLYCERIN 1000MCG/10ML SYRINGE INTRACORON ONE (19:42)
[2018-07-30] MEDS ORDERED: niCARdipine 25 MG/10 ML VIAL ONE (19:43)
[2018-07-30] MEDS ORDERED: ZOLPIDEM 5 MG TAB PO PRN (20:24)
[2018-07-30] MEDS ORDERED: ATROPINE SULFATE 0.1 MG/ML 10ML SYRINGE IV PRN (20:24)
[2018-07-30] MEDS ORDERED: MAG HYDROX/AL HYDROX/SIMETH 30 ML CUP PO PRN (20:24)
[2018-07-30] MEDS ORDERED: RX INFO: IV CONTRAST WAS GIVEN 1 EACH MISC MISCELLANE PRN (20:24)
[2018-07-30] MEDS ORDERED: NITROGLYCERIN SL TABS 0.4 MG TAB SUBLINGUAL PRN (20:24)
[2018-07-30] MEDS ORDERED: SODIUM CHLORIDE 0.9% 1,000 ML IV SCH (20:30)
[2018-07-30] MEDS ORDERED: amLODIPine 5 MG TAB PO STA (20:54)
[2018-07-30] MEDS ORDERED: LORazepam 1 MG TAB PO PRN (20:56)
--- NOTE | 2018-07-30 21:01 | LTR ---
July 30, 2018 To: Dr. Micheal Adamson Re: Conrad Ling (49) Dear Dr. Adamson, . Conrad Ling presented to the hospital with chest discomfort and ruled in for acute [id number] myocardial infarction. Heart catheterization was performed by Dr. Janessa Hammer revealed critical disease involving the proximal to mid LAD. Because of that, I performed successful stenting of the LAD with good angiographic results and without any complication. Thank you for allowing us to participate in his care. Sincerely, Jn MARROQUINL / DONALDN: [id number] /
[2018-07-30 21:18] LABS: Glucose,Whole Blood 120 mg/dL (75-99)
[2018-07-30] MEDS: GABAPENTIN 100 MG CAP PO SCH (21:27)
[2018-07-30] MEDS: TICAGRELOR 90 MG TAB PO SCH (21:28)
[2018-07-30] MEDS: NORTRIPTYLINE 25 MG CAP PO SCH (22:38)
--- NOTE | 2018-07-30 22:47 | PCN ---
PROCEDURE NOTE PERCUTANEOUS CORONARY INTERVENTION: DATE OF SERVICE: 07/30/2018 PERFORMING PHYSICIAN: Jn Cisse MD, clinical trials assistant. PROCEDURES PERFORMED: 1. Successful stenting of the proximal to mid left anterior descending coronary artery using a 2.75 x 18 mm Xience drug-elution stent with good angiographic results and reduction of stenosis from 99% to 0%. 2. Attempted fractional flow reserve of the left circumflex. INDICATION: This is a pleasant 72-year-old gentleman with known history of coronary artery disease and prior stenting in the LAD and left circumflex. He presented to the hospital with chest discomfort and ruled in for acute [id number] myocardial infarction. He underwent heart catheterization by Dr. Janessa Hammer and was found to have critical disease involving the proximal to mid LAD by the distal edge of previous stent. Because of that, a PCI of the LAD was advised. Also he was found to have intermediate to severe disease of the left circumflex and an FFR was advised as well. APPROACH: Right common femoral artery. COMPLICATIONS: None. LEVEL OF SEDATION: Moderate with sedation length of 46 minutes. PROCEDURE DESCRIPTION: After diagnostic heart catheterization was performed by Dr. Janessa Hammer and after reviewing the angiogram, we decided to pursue an intervention on the LAD. Anticoagulation was initiated using Angiomax. Subsequently the left main was engaged using an XB 3.5 guide. Subsequently I wired the LAD using a Whisper wire. After that I did balloon angioplasty of the LAD using a 2.0 x 12 mm balloon before I deployed a 2.75 x 18 mm Xience KENDALL where the stent was positioned under fluoroscopy guidance and deployed under 12 atmospheres for 20 seconds. Post dilatation of the stent was done using a 2.75 mm NC balloon. The following angiogram showed excellent angiographic results. The procedure was completed without any complication. The machine stopped working on us. I exchanged my wire for a new Doppler wire and the machine also did the same thing. Because of that, we decided to abort the FFR of the left circumflex. POST-PROCEDURE MANAGEMENT: 1. Dual anti-platelet therapy. 2. Risk factor modifications. 3. Follow up with the patient. MMODL / IJN: [id number] /
[2018-07-31 06:12] LABS: Glucose,Whole Blood 109 mg/dL (75-99)
[2018-07-31] MEDS: SODIUM CHLORIDE 0.9% 1,000 ML IV SCH ×3 (06:13→16:17)
[2018-07-31] MEDS: NITROGLYCERIN OINT 1 INCH/GM PACKET TOPICAL SCH ×4 (06:13→23:27)
[2018-07-31] MEDS: LEVOTHYROXINE 100 MCG TAB PO SCH (06:15)
[2018-07-31] MEDS: PANTOPRAZOLE 40 MG TABLET PO SCH (06:15)
[2018-07-31] MEDS: INSULIN ASPART 100 UNIT/ML 1 ML 10 ML VIAL SQ SCH ×4 (06:37→21:40)
[2018-07-31] MEDS ORDERED: ASPIRIN 325 MG TAB PO SCH (09:00)
[2018-07-31] MEDS: amLODIPine 5 MG TAB PO SCH (09:05)
[2018-07-31] MEDS: ASPIRIN 81 MG PO SCH (09:05)
[2018-07-31] MEDS: DICYCLOMINE 20 MG TAB PO SCH (09:06)
[2018-07-31] MEDS: METOPROLOL SUCCINATE (ER) 100 MG TAB.ER.24H PO SCH (09:06)
[2018-07-31] MEDS: TAMSULOSIN 0.4 MG CAP.ER.24H PO SCH (09:07)
[2018-07-31] MEDS: TICAGRELOR 90 MG TAB PO SCH ×2 (09:07→20:23)
--- NOTE | 2018-07-31 10:40 | P.PN ---
Subjective Progress Note Date: 07/31/18 Mr. Ling is a pleasant 72-year-old male past medical history significant for coronary artery disease s/p multiple stenting, hypertension, dyslipidemia, diabetes mellitus, hypothyroidism, chronic kidney disease, bone marrow transplant 2016 and gastroesophageal reflux disease. Presented to the hospital with a non-Q-wave myocardial infarction, was taken to the cardiac catheterization lab yesterday by Dr. VC Hammer, underwent angioplasty and stenting of the LAD by Dr. Womack. As well as an attempted fractional flow reserve of the left circumflex. Patient was seen and examined this morning, denies any chest pain or difficulty in breathing. He has been up ambulating without any difficulty. EKG from this morning shows a normal sinus rhythm with no changes from post-PCI. Blood pressure 138/60 with a heart rate in the 70s, 96% on room air. Creatinine this morning 1.1. Objective - Vital Signs Vital signs: Vital Signs Temp 97.7 F 07/31/18 07:58 Pulse 71 07/31/18 07:58 Resp 14 07/31/18 07:58 BP 139/63 07/31/18 07:58 Pulse Ox 96 07/31/18 07:58 Intake & Output 07/30/18 07/31/18 07/31/18 18:59 06:59 18:59 Intake Total 316 1090 Output Total 200 1200 200 Balance 116 -110 -200 Weight 97.7 kg Intake: IV 50 290 Intake, IV Titration 266 800 Amount Heparin Sod,Pork in 0.45% 266 NaCl 25,000 unit In 0.45 % NaCl 1 500ml.bag @ 10. 255 UNITS/KG/HR 20 mls/hr IV .Q24H JULIANA Rx#: [id number] Sodium Chloride 0.9% 1, 800 000 ml @ 100 mls/hr IV . Q10H JULIANA Rx#:[id number] Output: Urine 200 1200 200 Other: Voiding Method Toilet Toilet # Voids 0 1 - Exam PHYSICAL EXAMINATION: GENERAL: 72-year-old gentleman in no acute distress at the time of my examination HEENT: Head is atraumatic, normocephalic. Pupils equal, round. Sclera anicteric. Conjunctiva are clear. Mucous membranes of the mouth are moist. Neck is supple. There is no elevated jugular venous pressure.] bruit is heard. HEART EXAMINATION: Heart S1, S2 systolic ejection murmur heard at the base . CHEST EXAMINATION: Lungs are clear to auscultation and precussion. No chest wall tenderness is noted on palpation or with deep breathing. ABDOMEN: Soft, nontender. Bowel sounds are heard. No organomegaly noted. EXTREMITIES: 2+ peripheral pulses with no evidence of peripheral edema and no calf tenderness noted. Right groin soft, no evidence of any hematoma, there is a small area of ecchymosis, no bruit. NEUROLOGIC patient is awake, alert and oriented ?-3. . - Labs CBC & Chem 7: 07/29/18 16:50 07/31/18 06:16 Labs: Abnormal Lab Results - Last 24 Hours (Table) 07/30/18 07/30/18 07/30/18 Range/Units 12:04 17:20 21:16 POC Glucose (mg/dL) 113 H 122 H 120 H (75-99) mg/dL 07/31/18 Range/Units 06:11 POC Glucose (mg/dL) 109 H (75-99) mg/dL Assessment and Plan Plan: Assessment and plan #1 non-ST elevation IN status post angioplasty and stenting of the LAD #2 known history of coronary artery disease with prior PCI's #3 aortic stenosis #4 chronic kidney disease stage III #5 hypertension #6 hyperlipidemia #7 Diabetes #8 history of bone marrow transplant Plan From cardiology's perspective, patient may be able to be discharged home today. Discharge medications include Norvasc 5 mg daily, Lipitor 80 mg daily, aspirin 81 mg daily, metoprolol 100 mg daily, Brilinta 90 mg one tablet by mouth twice a day, sublingual nitroglycerin as needed for chest. Follow-up appointment in the office with Dr. Hammer post discharge. DNP note has been reviewed, I agree with a documented findings and plan of care. Patient was seen and examined.
[2018-07-31 11:09] VITALS: BMI 29.2
[2018-07-31 11:52] LABS: Glucose,Whole Blood 187 mg/dL (75-99)
--- NOTE | 2018-07-31 16:18 | P.PN ---
Subjective On-call hospitalist covering for Dr. Adamson Mr. Ling is a pleasant 72-year-old male past medical history significant for coronary artery disease s/p multiple stenting, hypertension, dyslipidemia, diabetes mellitus, hypothyroidism, chronic kidney disease, bone marrow transplant 2016 and gastroesophageal reflux disease. Presented to the hospital with chest pain mostly secondary to non-Q-wave myocardial infarction, was taken to the cardiac catheterization lab yesterday by Dr. VC Hammer, underwent angioplasty and stenting of the LAD by Dr. Womack. today pt feels much better, as his left chest pain is resolved as per patient. Patient has been evaluated by second vp hr assessment today and cleared him for discharge. However patient is complaining to me from lower abdominal pain and increased frequency of urination as he is going every one hour, for the last 3 days duration his pain is in the lower abdomen radiating to the left inguinal area, nonspecific about 4/10 in severity. Also patient complaining of from loose bowel movement that started today. Patient states he had 3 of them but with no blood. Labs are reviewed which shows no leukocytosis, rest of CBC is unremarkable. INR is 1.1. On admission he has acute kidney injury with creatinine 1.3, and down to 1.1. Her going to do some workup included urine analysis, venous Doppler of the lower extremity and will send a stool sample for C. diff. Check labs in the morning and keep monitoring For now Objective - Vital Signs Vital signs: Vital Signs Temp 96.8 F L 07/31/18 12:15 Pulse 78 07/31/18 12:15 Resp 14 07/31/18 12:15 BP 133/78 07/31/18 12:15 Pulse Ox 96 07/31/18 07:58 Intake & Output 07/30/18 07/31/18 07/31/18 18:59 06:59 18:59 Intake Total 316 1090 180 Output Total 200 1200 1000 Balance 116 -110 -820 Weight 97.7 kg 97.7 kg Intake: IV 50 290 Intake, IV Titration 266 800 Amount Heparin Sod,Pork in 0.45% 266 NaCl 25,000 unit In 0.45 % NaCl 1 500ml.bag @ 10. 255 UNITS/KG/HR 20 mls/hr IV .Q24H JULIANA Rx#: [id number] Sodium Chloride 0.9% 1, 800 000 ml @ 100 mls/hr IV . Q10H JULIANA Rx#:[id number] Oral 180 Output: Urine 200 1200 1000 Other: Voiding Method Toilet Toilet Toilet # Voids 0 1 - Exam GENERAL: The patient is alert and oriented x3, not in any acute distress. Well developed, well nourished. HEENT: Pupils are round and equally reacting to light. EOMI. No scleral icterus. No conjunctival pallor. Normocephalic, atraumatic. No pharyngeal erythema. No thyromegaly. CARDIOVASCULAR: S1 and S2 present. No murmurs, rubs, or gallops. PULMONARY: Chest is clear to auscultation, no wheezing or crackles. -ABDOMEN: Soft, lower abdominal and left inguinal tenderness, with no rebound tenderness, nondistended, normoactive bowel sounds. No palpable organomegaly. There is no hematoma or swelling in the inguinal region MUSCULOSKELETAL: No joint swelling or deformity. EXTREMITIES: No cyanosis, clubbing, or pedal edema. NEUROLOGICAL: Gross neurological examination did not reveal any focal deficits. SKIN: No rashes. - Labs CBC & Chem 7: 07/29/18 16:50 07/31/18 06:16 Labs: Abnormal Lab Results - Last 24 Hours (Table) 07/30/18 07/30/18 07/31/18 Range/Units 17:20 21:16 06:11 POC Glucose (mg/dL) 122 H 120 H 109 H (75-99) mg/dL 07/31/18 Range/Units 11:44 POC Glucose (mg/dL) 187 H (75-99) mg/dL Assessment and Plan Assessment: non-Q-wave myocardial infarction, s/p cardiac catheterization and angioplasty with stenting of the LAD Lower abdominal and left inguinal pain Diabetes mellitus Hypertension Dyslipidemia History of bone cancer on his back in 2015 History of bone marrow transplant 2016 Plan: This is a pleasant 72 years old male who presents with non-Q wave myocardial infarction status post stent And stenting. Patient chest pain looks resolved resolved. Continue with the same treatment recommended by second vp hr assessment. However patient today's complaining of from lower abdominal pain with increased frequency of urination as well as left inguinal pain with diarrhea. So we'll order urine analysis, and sent stool sample for C. diff and occult blood in his stool as patient has history of rectal bleed, also I will check Doppler of the lower extremity to rule out DVT. Continue with the same treatment. Continue symptomatic treatment. Resume home medication. GI and DVT prophylaxis. Further recommendations based on the clinical course of the patient DVT prophylaxis: Subcutaneous heparin GI prophylaxis: Protonix PT/OT: Pending Prognosis is guarded
[2018-07-31 16:45] LABS: Glucose,Whole Blood 137 mg/dL (75-99)
[2018-07-31 16:51] LABS: Appearance,Urine Clear (Clear); Bilirubin,Urine Negative (Negative); Blood,Urine Negative (Negative); Color,Urine Light Yellow; Glucose,Urine (UA) Negative (Negative); Ketones,Urine Negative (Negative); Leukocyte Esterase,Urine Negative (Negative); Nitrite,Urine Negative (Negative); Protein,Urine Negative (Negative); Specific Gravity,Urine 1.008 (1.001-1.035); Urobilinogen,Urine <2.0 mg/dL (<2.0)
--- NOTE | 2018-07-31 17:37 | US ---
EXAMINATION TYPE: US venous doppler duplex LE DATE OF EXAM: 07/31/2018 5:16 PM COMPARISON: NONE CLINICAL HISTORY: Rule out DVT; post right groin cardiac catheterization 2 days prior; patient c/o bi lateral night time calf cramps; denies leg swelling SIDE PERFORMED: Bilateral TECHNIQUE: The lower extremity deep venous system is examined utilizing real time linear array sonog stsa with graded compression, doppler sonography and color-flow sonography. VESSELS IMAGED: Common Femoral Vein Deep Femoral Vein Greater Saphenous Vein * Femoral Vein Popliteal Vein Small Saphenous Vein * Proximal Calf Veins (* superficial vessels) Right Leg: Negative for DVT. Left Leg: Negative for DVT IMPRESSION: No evidence of deep venous thrombosis in both legs.
[2018-07-31] MEDS ORDERED: ACETAMINOPHEN TAB 325 MG TAB PO PRN (18:20)
[2018-07-31] MEDS: NORTRIPTYLINE 25 MG CAP PO SCH (20:23)
[2018-07-31] MEDS: GABAPENTIN 100 MG CAP PO SCH (20:23)
[2018-07-31] MEDS: FAMOTIDINE 20 MG/2 ML VIAL IV SCH (20:24)
[2018-07-31] MEDS: HEPARIN SODIUM,PORCINE 5,000 UNIT/ML 1 ML VIAL SQ SCH (20:24)
[2018-07-31] MEDS ORDERED: ATORVASTATIN 80 MG TAB PO SCH (21:00)
[2018-07-31 21:08] LABS: Glucose,Whole Blood 116 mg/dL (75-99)
[2018-08-01 06:01] LABS: Basophils % (A) 1 %; Eosinophils # (A) 0.1 k/uL (0-0.7); Eosinophils % (A) 4 %; HCT 38.7 % (39.0-53.0); HGB 12.9 gm/dL (13.0-17.5); Lymphocytes # (A) 0.7 k/uL (1.0-4.8); Lymphocytes % (A) 20 %; MCH 30.8 pg (25.0-35.0); MCHC 33.3 g/dL (31.0-37.0); MCV 92.4 fL (80.0-100.0); Mean Platelet Volume 8.9; Monocytes # (A) 0.3 k/uL (0-1.0); Monocytes % (A) 8 %; Neutrophils # (A) 2.4 k/uL (1.3-7.7); Neutrophils % (A) 65 %; RBC 4.19 m/uL (4.30-5.90); RDW 13.6 % (11.5-15.5); WBC 3.7 k/uL (3.8-10.6)
[2018-08-01 06:08] LABS: Glucose,Whole Blood 117 mg/dL (75-99)
[2018-08-01] MEDS: INSULIN ASPART 100 UNIT/ML 1 ML 10 ML VIAL SQ SCH ×3 (06:12→16:57)
[2018-08-01 06:16] LABS: Calcium 8.7 mg/dL (8.4-10.2); Potassium 4.3 mmol/L (3.5-5.1)
[2018-08-01] MEDS: NITROGLYCERIN OINT 1 INCH/GM PACKET TOPICAL SCH ×2 (06:26→11:10)
[2018-08-01] MEDS: LEVOTHYROXINE 100 MCG TAB PO SCH (06:26)
[2018-08-01] MEDS: PANTOPRAZOLE 40 MG TABLET PO SCH (06:26)
[2018-08-01 06:33] LABS: Platelet Count 87 k/uL (150-450)
[2018-08-01] MEDS ORDERED: metFORMIN 500 MG TAB PO SCH (07:30)
[2018-08-01 07:43] VITALS: PULSE 79; RESP 16; TEMP 98
[2018-08-01] MEDS: amLODIPine 5 MG TAB PO SCH (07:52)
[2018-08-01] MEDS: HEPARIN SODIUM,PORCINE 5,000 UNIT/ML 1 ML VIAL SQ SCH (07:53)
[2018-08-01] MEDS: ASPIRIN 81 MG PO SCH (07:53)
[2018-08-01] MEDS: FAMOTIDINE 20 MG/2 ML VIAL IV SCH (07:53)
[2018-08-01] MEDS: DICYCLOMINE 20 MG TAB PO SCH (07:53)
[2018-08-01] MEDS: TICAGRELOR 90 MG TAB PO SCH (07:54)
[2018-08-01] MEDS: METOPROLOL SUCCINATE (ER) 100 MG TAB.ER.24H PO SCH (07:54)
[2018-08-01] MEDS: TAMSULOSIN 0.4 MG CAP.ER.24H PO SCH (07:54)
--- NOTE | 2018-08-01 09:26 | P.PN ---
Subjective Progress Note Date: 08/01/18 Mr. Ling is a pleasant 72-year-old male past medical history significant for coronary artery disease s/p multiple stenting, hypertension, dyslipidemia, diabetes mellitus, hypothyroidism, chronic kidney disease, bone marrow transplant 2016 and gastroesophageal reflux disease. Presented to the hospital with a non-Q-wave myocardial infarction, was taken to the cardiac catheterization lab yesterday by Dr. VC Hammer, underwent angioplasty and stenting of the LAD by Dr. Womack. As well as an attempted fractional flow reserve of the left circumflex. Patient was seen and examined this morning, denies any chest pain or difficulty in breathing. He has been up ambulating without any difficulty. EKG from this morning shows a normal sinus rhythm with no changes from post-PCI. Blood pressure 138/60 with a heart rate in the 70s, 96% on room air. Creatinine this morning 1.1. 08/01/2018 Patient seen and examined this morning, feels well, denies any chest pain, breathing is stable. He was noted to be having some diarrhea stools yesterday afternoon and for this reason his discharge had been held. The patient he has irritable bowel syndrome and intermittent diarrhea stools at home as well. He was also complaining of some leg cramps so they did a venous duplex study of his bilateral lower extremities which did not reveal evidence of a DVT in either leg. Patient states he had one diarrhea stools this morning. Blood pressure 140/70 with a heart rate in the 70s, 96% on room air. White blood cell count 3.7, hemoglobin 0.9 platelet count 87. Sodium 140, potassium 4.3, BUN 22, creatinine 1.2. Patient is on dual antiplatelet therapy, we will monitor outpatient CBCs because of the low platelet counts. Objective - Vital Signs Vital signs: Vital Signs Temp 98.0 F 08/01/18 07:41 Pulse 79 08/01/18 08:00 Resp 16 08/01/18 07:41 BP 143/78 08/01/18 07:41 Pulse Ox 96 08/01/18 07:41 Intake & Output 07/31/18 08/01/18 08/01/18 18:59 06:59 18:59 Intake Total 420 350 240 Output Total 1325 1025 Balance -905 -675 240 Weight 96.615 kg 96.1 kg Intake: Oral 420 350 240 Output: Urine 1325 1025 Other: Voiding Method Toilet Toilet # Voids 2 - Exam PHYSICAL EXAMINATION: GENERAL: 72-year-old gentleman in no acute distress at the time of my examination HEENT: Head is atraumatic, normocephalic. Pupils equal, round. Sclera anicteric. Conjunctiva are clear. Mucous membranes of the mouth are moist. Neck is supple. There is no elevated jugular venous pressure.] bruit is heard. HEART EXAMINATION: Heart S1, S2 systolic ejection murmur heard at the base . CHEST EXAMINATION: Lungs are clear to auscultation and precussion. No chest wall tenderness is noted on palpation or with deep breathing. ABDOMEN: Soft, nontender. Bowel sounds are heard. No organomegaly noted. EXTREMITIES: 2+ peripheral pulses with no evidence of peripheral edema and no calf tenderness noted. Right groin soft, no evidence of any hematoma, there is a small area of ecchymosis, no bruit. NEUROLOGIC patient is awake, alert and oriented ?-3. . - Labs CBC & Chem 7: 08/01/18 05:52 08/01/18 05:52 Labs: Abnormal Lab Results - Last 24 Hours (Table) 07/31/18 07/31/18 07/31/18 Range/Units 11:44 16:40 21:07 WBC (3.8-10.6) k/uL RBC (4.30-5.90) m/uL Hgb (13.0-17.5) gm/dL Hct (39.0-53.0) % Plt Count (150-450) k/uL Lymphocytes # (1.0-4.8) k/uL Chloride (98-107) mmol/L BUN (9-20) mg/dL Creatinine (0.66-1.25) mg/dL Glucose (74-99) mg/dL POC Glucose (mg/dL) 187 H 137 H 116 H (75-99) mg/dL 08/01/18 08/01/18 08/01/18 Range/Units 05:52 05:52 06:07 WBC 3.7 L (3.8-10.6) k/uL RBC 4.19 L (4.30-5.90) m/uL Hgb 12.9 L (13.0-17.5) gm/dL Hct 38.7 L (39.0-53.0) % Plt Count 87 L (150-450) k/uL Lymphocytes # 0.7 L (1.0-4.8) k/uL Chloride 111 H (98-107) mmol/L BUN 22 H (9-20) mg/dL Creatinine 1.29 H (0.66-1.25) mg/dL Glucose 120 H (74-99) mg/dL POC Glucose (mg/dL) 117 H (75-99) mg/dL Assessment and Plan Plan: Assessment and plan #1 non-ST elevation AR status post angioplasty and stenting of the LAD #2 known history of coronary artery disease with prior PCI's #3 aortic stenosis #4 chronic kidney disease stage III #5 hypertension #6 hyperlipidemia #7 Diabetes #8 history of bone marrow transplant Plan From cardiology's perspective, patient may be able to be discharged home today. Discharge medications include Norvasc 5 mg daily, Lipitor 80 mg daily, aspirin 81 mg daily, metoprolol 100 mg daily, Brilinta 90 mg one tablet by mouth twice a day, sublingual nitroglycerin as needed for chest pain. Monitor outpatient CBC's. Follow-up appointment in the office with Dr. Hammer post discharge. DNP note has been reviewed, I agree with a documented findings and plan of care. Patient was seen and examined.
[2018-08-01 11:10] VITALS: BP 142/82
[2018-08-01 11:38] LABS: Glucose,Whole Blood 113 mg/dL (75-99)
--- NOTE | 2018-08-01 16:50 | P.DS ---
Providers Date of admission: 07/30/18 13:49 Expected date of discharge: 08/01/18 Attending physician: Micheal Adamson Consults: 07/29/18 18:39 Consult Physician Urgent Consulting Provider: B[facility] Martell Consult Reason/Comments: Chest pain Do you want consulting provider notified?: Yes 07/30/18 20:24 Consult Physician Routine Consulting Provider: [facility] Consult Reason/Comments: Post Interventional patient Do you want consulting provider notified?: Already Contacted Primary care physician: Micheal Adamson [facility] Course: Mr. Ling is a pleasant 72-year-old male past medical history significant for coronary artery disease s/p multiple stenting, hypertension, dyslipidemia, diabetes mellitus, hypothyroidism, chronic kidney disease, bone marrow transplant 2016 and gastroesophageal reflux disease. Presented to the hospital with a non-Q-wave myocardial infarction, was taken to the cardiac catheterization lab 07/30/[address] VC Hammer, underwent angioplasty and stenting of the LAD by Dr. Womack. As well as an attempted fractional flow reserve of the left circumflex. EKG from this morning shows a normal sinus rhythm with no changes from post-PCI. On 07/31/18- He was noted to be having some diarrhea stools this afternoon and for this reason his discharge had been held. The patient he has irritable bowel syndrome and intermittent diarrhea stools at home as well. He was also complaining of some leg cramps so they did a venous duplex study of his bilateral lower extremities which did not reveal evidence of a DVT in either leg. C.diff negative and diarrhea resolved. Patient has been cleared by cardiology to be discharged home. Patient's symptoms of diarrhea resolved completely. Patient states that he is back to his baseline. Vital signs at the time of discharge : Blood pressure 1 42 x 80, heart rate 79 , respiratory rate 16, saturating at 96% on room air. GENERAL: The patient is alert and oriented x3, not in any acute distress. Well developed, well nourished. HEENT: Pupils are round and equally reacting to light. EOMI. No scleral icterus. No conjunctival pallor. Normocephalic, atraumatic. No pharyngeal erythema. No thyromegaly. CARDIOVASCULAR: S1 and S2 present. No murmurs, rubs, or gallops. PULMONARY: Chest is clear to auscultation, no wheezing or crackles. -ABDOMEN: Soft, lower abdominal and left inguinal tenderness, with no rebound tenderness, nondistended, normoactive bowel sounds. No palpable organomegaly. There is no hematoma or swelling in the inguinal region. MUSCULOSKELETAL: No joint swelling or deformity. EXTREMITIES: No cyanosis, clubbing, or pedal edema. NEUROLOGICAL: Gross neurological examination did not reveal any focal deficits. SKIN: No rashes. DISCHARGE DIAGNOSIS Non-Q-wave myocardial infarction, s/p cardiac catheterization and angioplasty with stenting of the LAD Lower abdominal and left inguinal pain Diabetes mellitus Hypertension Dyslipidemia History of bone cancer on his back in 2014 History of bone marrow transplant 2016 Patient is being discharged home in a fair condition. Patient is advised to follow-up with his PCP and cardiology within 2-3 days. Patient Condition at Discharge: Fair Plan - Discharge Summary New Discharge Prescriptions: New Atorvastatin [Lipitor] 80 mg PO HS #30 tab Nitroglycerin Sl Tabs [Nitrostat] 0.4 mg SUBLINGUAL Q5M PRN #25 tab PRN Reason: Chest Pain Ticagrelor [Brilinta] 90 mg PO BID #60 tab Continue Dicyclomine HCl 20 mg PO DAILY Levothyroxine Sodium [Synthroid] 100 mcg PO DAILY Omeprazole 40 mg PO DAILY Nortriptyline [Pamelor] 25 mg PO HS Tamsulosin [Flomax] 0.4 mg PO DAILY amLODIPine [Norvasc] 5 mg PO DAILY Metoprolol Succinate (ER) [Toprol XL] 100 mg PO DAILY Aspirin EC [Ecotrin Low Dose] 81 mg PO DAILY clonazePAM [KlonoPIN] 0.5 mg PO DAILY PRN PRN Reason: Anxiety Gabapentin [Neurontin] 100 mg PO HS Loperamide [Imodium] 2 mg PO DAILY PRN PRN Reason: Constipation Isosorbide Mononitrate ER [Imdur] 30 mg PO DAILY #30 tab.er.24h metFORMIN HCL 1,000 mg PO DAILY #0 Discharge Medication List Dicyclomine HCl 20 mg PO DAILY 05/24/14 [History] Levothyroxine Sodium [Synthroid] 100 mcg PO DAILY 05/24/14 [History] Omeprazole 40 mg PO DAILY 05/24/14 [History] Nortriptyline [Pamelor] 25 mg PO HS 02/23/15 [History] Metoprolol Succinate (ER) [Toprol XL] 100 mg PO DAILY 10/11/16 [History] Tamsulosin [Flomax] 0.4 mg PO DAILY 10/11/16 [History] amLODIPine [Norvasc] 5 mg PO DAILY 10/11/16 [History] Aspirin EC [Ecotrin Low Dose] 81 mg PO DAILY 12/26/16 [History] Gabapentin [Neurontin] 100 mg PO HS 01/26/18 [History] clonazePAM [KlonoPIN] 0.5 mg PO DAILY PRN 01/26/18 [History] Loperamide [Imodium] 2 mg PO DAILY PRN 04/13/18 [History] Atorvastatin [Lipitor] 80 mg PO HS #30 tab 07/31/18 [Rx] Isosorbide Mononitrate ER [Imdur] 30 mg PO DAILY #30 tab.er.24h 07/31/18 [Rx] Nitroglycerin Sl Tabs [Nitrostat] 0.4 mg SUBLINGUAL Q5M PRN #25 tab 07/31/18 [Rx ] Ticagrelor [Brilinta] 90 mg PO BID #60 tab 07/31/18 [Rx] metFORMIN HCL 1,000 mg PO DAILY #0 07/31/18 [Rx] Follow up Appointment(s)/Referral(s): Micheal Adamson MD [Primary Care Provider] - 08/07/18 11:00 am (Friday) Sony Hammer MD [STAFF PHYSICIAN] - 08/06/18 3:30 pm ( with Stephany MORALES) Patient Instructions/Handouts: Left Heart Catheterization (DC) Activity/Diet/Wound Care/Special Instructions: Brilinta script filled in [facility] - first month free, then $25 copay Discharge Disposition: HOME SELF-CARE
[2018-08-01 16:59] LABS: Glucose,Whole Blood 119 mg/dL (75-99)
== END 2018-08-01 17:27 | disposition home or self-care (01) | DRG 247 ==
LOC: EC 16:29 → 3OBS 18:37 → OBSVTOIN 07-30 13:49 → 6SEL 07-30 14:17
PROVIDERS: ADMIT Family Medicine; ATTEND Family Medicine
PROC: 027034Z Dilation of Coronary Artery, One Artery with Drug-eluting Intraluminal Device, Percutaneous Approach (ICD-10-PCS; 2018-07-30)
PROC: 4A023N7 Measurement of Cardiac Sampling and Pressure, Left Heart, Percutaneous Approach (ICD-10-PCS; 2018-07-30)
PROC: B2111ZZ Fluoroscopy of Multiple Coronary Arteries using Low Osmolar Contrast (ICD-10-PCS; 2018-07-30)
PROC: 4A023N7 Measurement of Cardiac Sampling and Pressure, Left Heart, Percutaneous Approach (ICD-10-PCS; principal; 2018-07-30 13:15)
DX: I21.4 Non-ST elevation (NSTEMI) myocardial infarction (principal); N17.9 Acute kidney failure, unspecified; T82.855A Stenosis of coronary artery stent, initial encounter; Z94.81 Bone marrow transplant status; E03.9 Hypothyroidism, unspecified; E11.22 Type 2 diabetes mellitus with diabetic chronic kidney disease; E78.5 Hyperlipidemia, unspecified; F32.9 Major depressive disorder, single episode, unspecified; I12.9 Hypertensive chronic kidney disease with stage 1 through stage 4 chronic kidney disease, or unspecified chronic kidney disease; I25.10 Atherosclerotic heart disease of native coronary artery without angina pectoris; Z95.5 Presence of coronary angioplasty implant and graft; I25.2 Old myocardial infarction; I35.0 Nonrheumatic aortic (valve) stenosis; K21.9 Gastro-esophageal reflux disease without esophagitis; K58.0 Irritable bowel syndrome with diarrhea; N18.3 Chronic kidney disease, stage 3 (moderate); N40.1 Benign prostatic hyperplasia with lower urinary tract symptoms; R35.0 Frequency of micturition; Y83.1 Surgical operation with implant of artificial internal device as the cause of abnormal reaction of the patient, or of later complication, without mention of misadventure at the time of the procedure; Z79.82 Long term (current) use of aspirin; Z82.3 Family history of stroke; Z82.49 Family history of ischemic heart disease and other diseases of the circulatory system; Z83.3 Family history of diabetes mellitus; Z85.830 Personal history of malignant neoplasm of bone; Z87.442 Personal history of urinary calculi; K57.90 Diverticulosis of intestine, part unspecified, without perforation or abscess without bleeding; Z92.21 Personal history of antineoplastic chemotherapy; Z91.81 History of falling; Z98.42 Cataract extraction status, left eye; Z98.41 Cataract extraction status, right eye; Z96.1 Presence of intraocular lens; G47.62 Sleep related leg cramps; Z53.8 Procedure and treatment not carried out for other reasons
CPT/HCPCS: 36415; 71046; 80048; 80053; 80061; 81003; 82272; 82550; 82553; 82565; 83735; 83880; 84484; 85025; 85379; 85610; 85730; 93005; 93308; 93458; 93970; 94760; 96365; 96375; 96376; 99291; C1874

== ENCOUNTER 2018-08-12 13:08 | Inpatient (IN) | payer MEDICARE, OTHER ==
[2018-08-12] MEDS ORDERED: SODIUM CHLORIDE 0.9% 500 ML 500 ML IV ONE ×2 (13:40→14:50)
--- NOTE | 2018-08-12 13:48 | ED ---
General Adult HPI - General Chief complaint: Chest Pain Stated complaint: Chest Pain Time Seen by Provider: 08/12/18 13:22 Source: patient, RN notes reviewed, old records reviewed Mode of arrival: wheelchair Limitations: no limitations - History of Present Illness Initial comments: 72-year-old male presents for evaluation of central chest pain. Symptoms began just prior to arrival. Describes it as substernal sharp pain. He didn't associate this with some nausea. No vomiting. Patient has history of coronary artery disease, he had recent coronary angiogram with stenting of the LAD on . He is currently on aspirin and Brilinta, denies missing any medications. He does also have history of angina. Patient denies significant dyspnea. Denies lower extremity pain or swelling. Denies abdominal pain. - Related Data Home Medications Medication Instructions Recorded Confirmed Dicyclomine HCl 20 mg PO DAILY 05/24/14 08/12/18 Levothyroxine Sodium [Synthroid] 100 mcg PO DAILY 05/24/14 08/12/18 Omeprazole 40 mg PO DAILY 05/24/14 08/12/18 Nortriptyline [Pamelor] 25 mg PO HS 02/23/15 08/12/18 Metoprolol Succinate (ER) [Toprol 100 mg PO DAILY 10/11/16 08/12/18 XL] Tamsulosin [Flomax] 0.4 mg PO DAILY 10/11/16 08/12/18 amLODIPine [Norvasc] 5 mg PO DAILY 10/11/16 08/12/18 Aspirin EC [Ecotrin Low Dose] 81 mg PO DAILY 12/26/16 08/12/18 Gabapentin [Neurontin] 100 mg PO HS 01/26/18 08/12/18 clonazePAM [KlonoPIN] 0.5 mg PO DAILY PRN 01/26/18 08/12/18 Loperamide [Imodium] 2 mg PO DAILY PRN 04/13/18 08/12/18 Previous Rx's Medication Instructions Recorded Atorvastatin [Lipitor] 80 mg PO HS #30 tab 07/31/18 Isosorbide Mononitrate ER [Imdur] 30 mg PO DAILY #30 tab.er.24h 07/31/18 Nitroglycerin Sl Tabs [Nitrostat] 0.4 mg SUBLINGUAL Q5M PRN #25 tab 09/28/18 Ticagrelor [Brilinta] 90 mg PO BID #60 tab 07/31/18 metFORMIN HCL 1,000 mg PO DAILY #0 07/31/18 Allergies Allergy/AdvReac Type Severity Reaction Status Date / Time No Known Allergies Allergy Verified 08/12/18 14:33 Review of Systems ROS Statement: Those systems with pertinent positive or pertinent negative responses have been documented in the HPI. ROS Other: All systems not noted in ROS Statement are negative. 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, chronic intermittedt R lower abdominal pain with etiology unknown, NIDDM type II , BPH, rectal bleed, diverticulosis, kidney stones, pt denies any kidney disease other than stones."CHIPPED DISC" d/t faLL IN NOVEMBER Last Myocardial Infarction Date:: 2014 History of Any Multi-Drug Resistant Organisms: None Reported Past Surgical History: Adenoidectomy, Appendectomy, Cholecystectomy, Heart Catheterization With Stent, Hernia Repair, Orthopedic Surgery, Tonsillectomy Additional Past Surgical History / Comment(s): Bilateral carpal tunnel, bone spur removals to bilateral heels and FEET, X7 cardiac STENTS, B/L KNEE BONE SPURS, CATARACTS JA with lens implants, JA INGUINAL HERNIA REPAIR AND UMBILLICAL. removal of malignant tumor from back,EGD 06-04-17, RT LEG SX FOR TORN LIGAMENT."WAS BORN W/ OVERSIZED LIVER HAD SX TO REDUCE IT'S SIZE" Past Anesthesia/Blood Transfusion Reactions: No Reported Reaction Additional Past Anesthesia/Blood Transfusion Reaction / Comment(s): Pt states he has received blood in the past without reaction. Date of Last Stent Placement:: 2014 Past Psychological History: Depression Smoking Status: Never smoker Past Alcohol Use History: None Reported Past Drug Use History: None Reported - Past Family History Father Family Medical History: Myocardial Infarction (HI) Additional Family Medical History / Comment(s): PTBA Mother Family Medical History: CVA/TIA, Diabetes Mellitus Additional Family Medical History / Comment(s): Mother of a CVA at the age of 82 yrs. Brother(s) Family Medical History: Cancer Additional Family Medical History / Comment(s): 2 brothers have MS General Exam Limitations: no limitations General appearance: alert, in no apparent distress Head exam: Present: atraumatic, normocephalic Eye exam: Present: normal appearance, PERRL, EOMI ENT exam: Present: normal exam Neck exam: Present: normal inspection. Absent: tenderness, meningismus Respiratory exam: Present: normal lung sounds bilaterally. Absent: respiratory distress, wheezes Cardiovascular Exam: Present: normal rhythm, tachycardia GI/Abdominal exam: Present: soft. Absent: distended, tenderness, guarding Extremities exam: Present: normal inspection, normal capillary refill. Absent: pedal edema, calf tenderness Neurological exam: Present: alert, oriented X3, CN II-XII intact. Absent: motor sensory deficit Psychiatric exam: Present: normal affect, normal mood Skin exam: Present: warm, dry, intact. Absent: cyanosis, diaphoretic Course Vital Signs 08/12/18 13:12 Temperature 98.0 F Pulse Rate 127 H Respiratory 22 Rate Blood Pressure 137/83 O2 Sat by Pulse 98 Oximetry EKG Findings - EKG Comments: EKG Findings:: EKG: Sinus tachycardia, ST segment depression in the lateral precordium, no ST segment elevation, rate of 119, AL interval 162, QRS duration 88, QTC 447 Medical Decision Making - Medical Decision Making 72-year-old male history of CAD and recent stenting presenting with chest pain. Patient is on 2 antiplatelet therapy, denies missing any doses. EKG shows nonspecific ST segment depression in the lateral precordium, no ST segment elevation. Laboratory studies reveal stable hemoglobin, electrolytes are significant for hypomagnesemia 1.3 which is replaced. Troponin is elevated 0.087, it was elevated on previous admission prior to cath at 0.271. BNP is normal. Chest x-ray negative for any acute cardiopulmonary findings. Case is discussed with cardiology, Dr. Patel, patient will be admitted for serial cardiac enzymes and telemetry. He is started on nitro and heparin. Discussed with Dr. Adamson who will accept admission. - Lab Data Result diagrams: 08/12/18 13:26 08/12/18 13:26 Lab Results 10/10/18 10/10/18 10/10/18 Range/Units 13:26 13:26 13:26 WBC 3.4 L (3.8-10.6) k/uL RBC 4.37 (4.30-5.90) m/uL Hgb 13.4 (13.0-17.5) gm/dL Hct 39.8 (39.0-53.0) % MCV 90.9 (80.0-100.0) fL MCH 30.6 (25.0-35.0) pg MCHC 33.7 (31.0-37.0) g/dL RDW 13.9 (11.5-15.5) % Plt Count 85 L (150-450) k/uL Neutrophils % 61 % Lymphocytes % 27 % Monocytes % 5 % Eosinophils % 2 % Basophils % 0 % Neutrophils # 2.1 (1.3-7.7) k/uL Lymphocytes # 0.9 L (1.0-4.8) k/uL Monocytes # 0.2 (0-1.0) k/uL Eosinophils # 0.1 (0-0.7) k/uL Basophils # 0.0 (0-0.2) k/uL PT (9.0-12.0) sec INR (<1.2) APTT (22.0-30.0) sec Sodium 141 (137-145) mmol/L Potassium 3.7 (3.5-5.1) mmol/L Chloride 108 H (98-107) mmol/L Carbon Dioxide 21 L (22-30) mmol/L Anion Gap 12 mmol/L BUN 18 (9-20) mg/dL Creatinine 1.20 (0.66-1.25) mg/dL Est GFR (CKD-EPI)AfAm 71 (>60 ml/min/1.73 sqM) Est GFR (CKD-EPI)NonAf 61 (>60 ml/min/1.73 sqM) Glucose 170 H (74-99) mg/dL Calcium 9.3 (8.4-10.2) mg/dL Magnesium 1.3 L (1.6-2.3) mg/dL Total Bilirubin 0.8 (0.2-1.3) mg/dL AST 28 (17-59) U/L ALT 40 (21-72) U/L Alkaline Phosphatase 84 (38-126) U/L Total Creatine Kinase 156 (55-170) U/L CK-MB (CK-2) 2.7 H (0.0-2.4) ng/mL CK-MB (CK-2) Rel Index 1.7 Troponin I 0.087 H* (0.000-0.034) ng/mL NT-Pro-B Natriuret Pep pg/mL Total Protein 7.1 (6.3-8.2) g/dL Albumin 4.4 (3.5-5.0) g/dL Lipase 47 (23-300) U/L 08/12/18 08/12/18 Range/Units 13:26 13:26 WBC (3.8-10.6) k/uL RBC (4.30-5.90) m/uL Hgb (13.0-17.5) gm/dL Hct (39.0-53.0) % MCV (80.0-100.0) fL MCH (25.0-35.0) pg MCHC (31.0-37.0) g/dL RDW (11.5-15.5) % Plt Count (150-450) k/uL Neutrophils % % Lymphocytes % % Monocytes % % Eosinophils % % Basophils % % Neutrophils # (1.3-7.7) k/uL Lymphocytes # (1.0-4.8) k/uL Monocytes # (0-1.0) k/uL Eosinophils # (0-0.7) k/uL Basophils # (0-0.2) k/uL PT 11.1 (9.0-12.0) sec INR 1.2 H (<1.2) APTT 23.8 (22.0-30.0) sec Sodium (137-145) mmol/L Potassium (3.5-5.1) mmol/L Chloride (98-107) mmol/L Carbon Dioxide (22-30) mmol/L Anion Gap mmol/L BUN (9-20) mg/dL Creatinine (0.66-1.25) mg/dL Est GFR (CKD-EPI)AfAm (>60 ml/min/1.73 sqM) Est GFR (CKD-EPI)NonAf (>60 ml/min/1.73 sqM) Glucose (74-99) mg/dL Calcium (8.4-10.2) mg/dL Magnesium (1.6-2.3) mg/dL Total Bilirubin (0.2-1.3) mg/dL AST (17-59) U/L ALT (21-72) U/L Alkaline Phosphatase (38-126) U/L Total Creatine Kinase (55-170) U/L CK-MB (CK-2) (0.0-2.4) ng/mL CK-MB (CK-2) Rel Index Troponin I (0.000-0.034) ng/mL NT-Pro-B Natriuret Pep 304 pg/mL Total Protein (6.3-8.2) g/dL Albumin (3.5-5.0) g/dL Lipase (23-300) U/L Critical Care Time Critical Care Time: Yes Total Critical Care Time: 35 Disposition Clinical Impression: NSTEMI (non-ST elevated myocardial infarction) Disposition: ADMITTED IP TO THIS [facility] Condition: Stable Is patient prescribed a controlled substance at d/c from ED?: No Referrals: Micheal Adamson MD [Primary Care Provider] - 1-2 days Decision to Admit Reason: Admit from EC Decision Date: 08/12/18 Decision Time: 15:23
[2018-08-12 13:53] LABS: Basophils % (A) 0 %; Eosinophils # (A) 0.1 k/uL (0-0.7); Eosinophils % (A) 2 %; HCT 39.8 % (39.0-53.0); HGB 13.4 gm/dL (13.0-17.5); Lymphocytes # (A) 0.9 k/uL (1.0-4.8); Lymphocytes % (A) 27 %; MCH 30.6 pg (25.0-35.0); MCHC 33.7 g/dL (31.0-37.0); MCV 90.9 fL (80.0-100.0); Mean Platelet Volume 8.2; Monocytes # (A) 0.2 k/uL (0-1.0); Monocytes % (A) 5 %; Neutrophils # (A) 2.1 k/uL (1.3-7.7); Neutrophils % (A) 61 %; RBC 4.37 m/uL (4.30-5.90); RDW 13.9 % (11.5-15.5); WBC 3.4 k/uL (3.8-10.6)
[2018-08-12 13:57] LABS: Platelet Count 85 k/uL (150-450)
[2018-08-12 14:02] LABS: INR 1.2 (<1.2); Partial Thromboplastin Time 23.8 sec (22.0-30.0); Prothrombin Time 11.1 sec (9.0-12.0)
[2018-08-12 14:17] LABS: Albumin 4.4 g/dL (3.5-5.0); Calcium 9.3 mg/dL (8.4-10.2); Magnesium 1.3 mg/dL (1.6-2.3); Potassium 3.7 mmol/L (3.5-5.1); Total Bilirubin 0.8 mg/dL (0.2-1.3); Total Protein 7.1 g/dL (6.3-8.2)
[2018-08-12] MEDS ORDERED: METOPROLOL TARTRATE 25 MG TAB PO STA (14:21)
--- NOTE | 2018-08-12 14:27 | XR ---
EXAMINATION TYPE: XR chest 2V DATE OF EXAM: 08/12/2018 COMPARISON: 07/29/2018 HISTORY: Shortness of breath and weakness TECHNIQUE: Frontal and lateral views of the chest are obtained. FINDINGS: There is no focal air space opacity, pleural effusion, or pneumothorax seen. The cardiac silhouette size is within normal limits. The osseous structures are intact. Flowing syndesmophytes are seen of the thoracic spine suggestive of diffuse idiopathic skeletal hyperostosis. Coronary calci fications are incidentally seen. IMPRESSION: No acute cardiopulmonary process.
[2018-08-12 14:28] LABS: Creatine Kinase MB 2.7 ng/mL (0.0-2.4)
[2018-08-12 14:30] LABS: Troponin I 0.087 ng/mL (0.000-0.034)
[2018-08-12] MEDS ORDERED: HEPARIN SODIUM,PORCINE 5,000 UNIT/ML 1 ML VIAL IV PRN (14:57)
[2018-08-12] MEDS ORDERED: HEPARIN SODIUM,PORCINE 5,000 UNIT/ML 1 ML VIAL IV ONE (14:57)
[2018-08-12] MEDS ORDERED: NITROGLYCERIN OINT 1 INCH/GM PACKET TOPICAL STA (14:58)
[2018-08-12] MEDS ORDERED: HEPARIN SOD,PORK IN 0.45% NACL 25,000 UNIT in 0.45% NACL 1 500ML.BAG IV SCH (15:00)
[2018-08-12] MEDS ORDERED: MORPHINE SULFATE 4 MG/ML SYRINGE IVP STA (15:10)
[2018-08-12] MEDS ORDERED: NALOXONE 0.4 MG/ML 1 ML VIAL IV PRN (15:15)
[2018-08-12] MEDS: MAGNESIUM SULFATE-D5W PMX 1 GM in DEXTROSE/WATER 1 100ML.BAG IVPB SCH ×2 (15:47→18:53)
[2018-08-12] MEDS ORDERED: NITROGLYCERIN SL TABS 0.4 MG TAB SUBLINGUAL PRN (19:12)
[2018-08-12] MEDS ORDERED: LOPERAMIDE 2 MG CAP PO PRN (19:12)
[2018-08-12] MEDS ORDERED: clonazePAM 0.5 MG TAB PO PRN (19:12)
[2018-08-12 20:46] LABS: Glucose,Whole Blood 150 mg/dL (75-99)
[2018-08-12 20:49] LABS: Creatine Kinase MB 1.9 ng/mL (0.0-2.4)
[2018-08-12 21:00] LABS: Troponin I 0.06 ng/mL (0.000-0.034)
[2018-08-12] MEDS ORDERED: TICAGRELOR 90 MG TAB PO SCH (21:00)
[2018-08-12] MEDS: ATORVASTATIN 80 MG TAB PO SCH (21:14)
[2018-08-12] MEDS: TICAGRELOR 90 MG TAB PO SCH (21:14)
[2018-08-12] MEDS: GABAPENTIN 100 MG CAP PO SCH (21:14)
[2018-08-12] MEDS: NORTRIPTYLINE 25 MG CAP PO SCH (21:14)
[2018-08-12] MEDS: MORPHINE SULFATE 4 MG/ML SYRINGE IV PRN (21:55)
[2018-08-13 03:39] LABS: Creatine Kinase MB 2.2 ng/mL (0.0-2.4)
[2018-08-13 03:57] LABS: Troponin I 0.054 ng/mL (0.000-0.034)
[2018-08-13 04:36] LABS: Glucose,Whole Blood 116 mg/dL (75-99)
[2018-08-13 06:07] LABS: Glucose,Whole Blood 138 mg/dL (75-99)
[2018-08-13] MEDS: PANTOPRAZOLE 40 MG TABLET PO SCH (06:21)
[2018-08-13] MEDS: LEVOTHYROXINE 100 MCG TAB PO SCH (06:21)
[2018-08-13 07:05] LABS: Basophils % (A) 0 %; Eosinophils # (A) 0.1 k/uL (0-0.7); Eosinophils % (A) 3 %; HCT 34.6 % (39.0-53.0); HGB 11.9 gm/dL (13.0-17.5); Lymphocytes # (A) 0.7 k/uL (1.0-4.8); Lymphocytes % (A) 29 %; MCH 31.4 pg (25.0-35.0); MCHC 34.5 g/dL (31.0-37.0); MCV 91.2 fL (80.0-100.0); Mean Platelet Volume 8.4; Monocytes # (A) 0.1 k/uL (0-1.0); Monocytes % (A) 4 %; Neutrophils # (A) 1.4 k/uL (1.3-7.7); Neutrophils % (A) 59 %; RBC 3.79 m/uL (4.30-5.90); WBC 2.4 k/uL (3.8-10.6)
[2018-08-13 07:12] LABS: Platelet Count 67 k/uL (150-450)
[2018-08-13 07:36] LABS: Albumin 3.5 g/dL (3.5-5.0); Calcium 8.7 mg/dL (8.4-10.2); Total Bilirubin 0.4 mg/dL (0.2-1.3)
[2018-08-13] MEDS ORDERED: CAFFEINE CITRATE 60 MG/3 ML VIAL IV PRN (08:11)
[2018-08-13] MEDS ORDERED: REGADENOSON 0.4 MG/5 ML SYRINGE IV ONE (08:11)
[2018-08-13] MEDS: ISOSORBIDE MONONITRATE ER 30 MG TAB.ER.24H PO SCH (08:35)
[2018-08-13] MEDS: DICYCLOMINE 20 MG TAB PO SCH (08:35)
[2018-08-13] MEDS: TAMSULOSIN 0.4 MG CAP.ER.24H PO SCH (08:35)
[2018-08-13] MEDS: METOPROLOL SUCCINATE (ER) 100 MG TAB.ER.24H PO SCH (08:35)
[2018-08-13] MEDS ORDERED: ASPIRIN 325 MG TAB PO STA (08:59)
[2018-08-13] MEDS ORDERED: SODIUM CHLORIDE 0.9% 1,000 ML in EMPTY BAG 1 BAG IV ONE (08:59)
[2018-08-13] MEDS ORDERED: ALPRAZolam 0.25 MG TAB PO PRN (08:59)
[2018-08-13] MEDS ORDERED: ALPRAZolam 0.5 MG TAB PO PRN (08:59)
[2018-08-13] MEDS: amLODIPine 5 MG TAB PO SCH (09:04)
[2018-08-13] MEDS: TICAGRELOR 90 MG TAB PO SCH ×2 (09:04→19:44)
--- NOTE | 2018-08-13 09:23 | P.PN ---
Subjective Progress Note Date: 08/13/18 Principal diagnosis: NSTEMI This is a pleasant 72-year-old gentleman who follows with Dr. VC Hammer in the office. He has a known history of CAD, status post multiple stenting with the most recent to the LAD on July 30 of this year at which time FFR was attempted to the left circumflex but was unsuccessful secondary to Coumadin failure, also has a history of hypertension, dyslipidemia, diabetes mellitus, hypothyroidism, chronic kidney disease, bone marrow transplant 2016 and GERD. Was admitted to the hospital after he came here to visit his brother and walked up to the nurses station and verbalize complaints of intense, sharp left-sided chest discomfort which he feels was similar to the discomfort he felt prior to last admission at which time he was ruled in for non-ST elevation NM. He was sent to ER and subsequently admitted. Troponins were found to be mildly elevated at 0.087, 0.060 0.054. EKG showed nonspecific ST-T wave abnormalities. Patient continues to have intermittent chest discomfort that is different from presenting symptoms. Unable to clearly discussed pain but it is right sided and radiates to the left and increases with palpation. Current medications include amlodipine 5 mg by mouth daily, atorvastatin 80 mg by mouth daily at bedtime, Neurontin 100 mg by mouth daily at bedtime, heparin drip per protocol, isosorbide 30 mg by mouth daily, L thyroxine 100 g by mouth daily, metformin, metoprolol succinate 100 mg by mouth daily and Brilinta 90 mg by mouth twice a day. Objective - Vital Signs Vital signs: Vital Signs Temp 98.2 F 08/13/18 04:00 Pulse 74 08/13/18 04:00 Resp 18 08/13/18 04:00 BP 128/76 08/13/18 04:00 Pulse Ox 98 08/13/18 04:00 Intake & Output 08/12/18 08/13/18 08/13/18 18:59 06:59 18:59 Intake Total 240 Output Total 600 Balance 240 -600 Weight 91.172 kg 98.2 kg Intake: Oral 240 Output: Urine 600 Other: # Voids 2 - Exam PHYSICAL EXAMINATION: HEENT: Head is atraumatic, normocephalic. Pupils equal, round. Neck is supple. There is no elevated jugular venous pressure. HEART EXAMINATION: Heart sounds regular, S1 and S2 normal. No murmur or gallop heard. CHEST EXAMINATION: Lungs are clear to auscultation and precussion. No chest wall tenderness is noted on palpation or with deep breathing. ABDOMEN: Soft, nontender. Bowel sounds are heard. No organomegaly noted. EXTREMITIES: 2+ peripheral pulses with no evidence of peripheral edema and no calf tenderness noted. NEUROLOGIC patient is awake, alert and oriented x3. . - Labs CBC & Chem 7: 08/13/18 06:49 08/13/18 06:49 Labs: Abnormal Lab Results - Last 24 Hours (Table) 08/12/18 08/12/18 08/12/18 Range/Units 13:26 13:26 13:26 WBC 3.4 L (3.8-10.6) k/uL RBC (4.30-5.90) m/uL Hgb (13.0-17.5) gm/dL Hct (39.0-53.0) % Plt Count 85 L (150-450) k/uL Lymphocytes # 0.9 L (1.0-4.8) k/uL INR (<1.2) APTT (22.0-30.0) sec Chloride 108 H (98-107) mmol/L Carbon Dioxide 21 L (22-30) mmol/L Glucose 170 H (74-99) mg/dL POC Glucose (mg/dL) (75-99) mg/dL Magnesium 1.3 L (1.6-2.3) mg/dL CK-MB (CK-2) 2.7 H (0.0-2.4) ng/mL Troponin I 0.087 H* (0.000-0.034) ng/mL Total Protein (6.3-8.2) g/dL 08/12/18 08/12/18 08/12/18 Range/Units 13:26 20:00 20:44 WBC (3.8-10.6) k/uL RBC (4.30-5.90) m/uL Hgb (13.0-17.5) gm/dL Hct (39.0-53.0) % Plt Count (150-450) k/uL Lymphocytes # (1.0-4.8) k/uL INR 1.2 H (<1.2) APTT (22.0-30.0) sec Chloride (98-107) mmol/L Carbon Dioxide (22-30) mmol/L Glucose (74-99) mg/dL POC Glucose (mg/dL) 150 H (75-99) mg/dL Magnesium (1.6-2.3) mg/dL CK-MB (CK-2) (0.0-2.4) ng/mL Troponin I 0.060 H* (0.000-0.034) ng/mL Total Protein (6.3-8.2) g/dL 08/12/18 08/13/18 08/13/18 Range/Units 21:41 02:40 04:34 WBC (3.8-10.6) k/uL RBC (4.30-5.90) m/uL Hgb (13.0-17.5) gm/dL Hct (39.0-53.0) % Plt Count (150-450) k/uL Lymphocytes # (1.0-4.8) k/uL INR (<1.2) APTT 44.7 H (22.0-30.0) sec Chloride (98-107) mmol/L Carbon Dioxide (22-30) mmol/L Glucose (74-99) mg/dL POC Glucose (mg/dL) 116 H (75-99) mg/dL Magnesium (1.6-2.3) mg/dL CK-MB (CK-2) (0.0-2.4) ng/mL Troponin I 0.054 H* (0.000-0.034) ng/mL Total Protein (6.3-8.2) g/dL 08/13/18 08/13/18 08/13/18 Range/Units 06:04 06:49 06:49 WBC 2.4 L (3.8-10.6) k/uL RBC 3.79 L (4.30-5.90) m/uL Hgb 11.9 L (13.0-17.5) gm/dL Hct 34.6 L (39.0-53.0) % Plt Count 67 L (150-450) k/uL Lymphocytes # 0.7 L (1.0-4.8) k/uL INR (<1.2) APTT (22.0-30.0) sec Chloride 110 H (98-107) mmol/L Carbon Dioxide (22-30) mmol/L Glucose 120 H (74-99) mg/dL POC Glucose (mg/dL) 138 H (75-99) mg/dL Magnesium (1.6-2.3) mg/dL CK-MB (CK-2) (0.0-2.4) ng/mL Troponin I (0.000-0.034) ng/mL Total Protein 6.0 L (6.3-8.2) g/dL 08/13/18 Range/Units 06:49 WBC (3.8-10.6) k/uL RBC (4.30-5.90) m/uL Hgb (13.0-17.5) gm/dL Hct (39.0-53.0) % Plt Count (150-450) k/uL Lymphocytes # (1.0-4.8) k/uL INR (<1.2) APTT 39.9 H (22.0-30.0) sec Chloride (98-107) mmol/L Carbon Dioxide (22-30) mmol/L Glucose (74-99) mg/dL POC Glucose (mg/dL) (75-99) mg/dL Magnesium (1.6-2.3) mg/dL CK-MB (CK-2) (0.0-2.4) ng/mL Troponin I (0.000-0.034) ng/mL Total Protein (6.3-8.2) g/dL Assessment and Plan Assessment: #1 non-ST segment elevation NM #2 hypertension #3 dyslipidemia #4 diabetes Plan: From cardiology 's perspective, patient will be kept nothing by mouth after midnight tonight and will be scheduled for cardiac catheterization with Dr. VC Hammer and likely FFR of the left circumflex by Dr. Cisse. We will discontinue IV heparin but continue aspirin and Brilinta. We will continue to follow the patient and write further recommendations accordingly. The above dictated assessment and findings were discussed with signing physician. The impression and plan of care have been directed as dictated. Stephany Burgos, Nurse Practitioner, acting as scribe for signing physician.
--- NOTE | 2018-08-13 09:51 | NM ---
EXAMINATION TYPE: NM myocardial SPECT single DATE OF EXAM: 08/13/2018 COMPARISON: Recent nuclear medicine Lexiscan stress test May 20, 2018. HISTORY: Chest pain after recent catheterization and stent. History of AIDS vessel angioplasty, heart attack, hypertension, diabetes, hypercholesteremia, and family history of heart disease. Following administration of 10.6 mCi Tc 99m Sestamibi. Images obtained 45 minutes post injection. FINDINGS: Resting images show new small area of defect involving anteroseptal wall base and mid zone in which area of infarct cannot be excluded. Calculated ejection fraction is 58% IMPRESSION: As above
[2018-08-13] MEDS: ASPIRIN 81 MG PO SCH (10:05)
[2018-08-13 11:28] LABS: Glucose,Whole Blood 198 mg/dL (75-99)
--- NOTE | 2018-08-13 12:24 | P.HPIM ---
History of Present Illness 72-year-old male states that he was visiting his brother here in the hospital. Developed severe chest pain developed weakness collapses knees. Patient was taken to the emergency room and admitted for evaluation. Patient states this have a chest pain workup to his neck and felt nauseous. Patient is a have a history of coronary disease with NH and stents. Patient is a diabetic. 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 [facility], chronic intermittedt R lower abdominal pain with etiology unknown, NIDDM type II , BPH, rectal bleed, diverticulosis, kidney stones, pt denies any kidney disease other than stones."CHIPPED DISC" d/t faLL IN NOVEMBER Last Myocardial Infarction Date:: 2017(non q wave) History of Any Multi-Drug Resistant Organisms: None Reported Past Surgical History: Adenoidectomy, Appendectomy, Cholecystectomy, Heart Catheterization With Stent, Hernia Repair, Orthopedic Surgery, Tonsillectomy Additional Past Surgical History / Comment(s): Bilateral carpal tunnel, bone spur removals to bilateral heels and FEET," 8 cardiac STENTS", B/L KNEE BONE SPURS, CATARACTS JA with lens implants, JA INGUINAL HERNIA REPAIR AND UMBILLICAL. removal of malignant tumor from back,EGD 06-04-17, RT LEG SX FOR TORN LIGAMENT."WAS BORN W/ OVERSIZED LIVER HAD SX TO REDUCE IT'S SIZE" Past Anesthesia/Blood Transfusion Reactions: No Reported Reaction Additional Past Anesthesia/Blood Transfusion Reaction / Comment(s): Pt states he has received blood in the past without reaction. Date of Last Stent Placement:: 2017 Smoking Status: Never smoker - Past Family History Father Family Medical History: Myocardial Infarction (NH) Additional Family Medical History / Comment(s): PTBA Mother Family Medical History: CVA/TIA, Diabetes Mellitus Additional Family Medical History / Comment(s): Mother of a CVA at the age of 82 yrs. Brother(s) Family Medical History: Cancer Additional Family Medical History / Comment(s): 2 brothers have MS Medications and Allergies Home Medications Medication Instructions Recorded Confirmed Type Dicyclomine HCl 20 mg PO DAILY 05/24/14 08/12/18 History Levothyroxine Sodium [Synthroid] 100 mcg PO DAILY 05/24/14 08/12/18 History Omeprazole 40 mg PO DAILY 05/24/14 08/12/18 History Nortriptyline [Pamelor] 25 mg PO HS 02/23/15 08/12/18 History Metoprolol Succinate (ER) [Toprol 100 mg PO DAILY 10/11/16 08/12/18 History XL] Tamsulosin [Flomax] 0.4 mg PO DAILY 10/11/16 08/12/18 History amLODIPine [Norvasc] 5 mg PO DAILY 10/11/16 08/12/18 History Aspirin EC [Ecotrin Low Dose] 81 mg PO DAILY 12/26/16 08/12/18 History Gabapentin [Neurontin] 100 mg PO HS 01/26/18 08/12/18 History clonazePAM [KlonoPIN] 0.5 mg PO DAILY PRN 01/26/18 08/12/18 History Loperamide [Imodium] 2 mg PO DAILY PRN 04/13/18 08/12/18 History Atorvastatin [Lipitor] 80 mg PO HS #30 tab 07/31/18 08/12/18 Rx Isosorbide Mononitrate ER [Imdur] 30 mg PO DAILY #30 tab.er.24h 07/31/18 Rx Nitroglycerin Sl Tabs [Nitrostat] 0.4 mg SUBLINGUAL Q5M PRN #25 tab 07/31/1808/20 Rx Ticagrelor [Brilinta] 90 mg PO BID #60 tab 07/31/18 08/12/18 Rx metFORMIN HCL 1,000 mg PO DAILY #0 07/31/18 08/12/18 Rx Allergies Allergy/AdvReac Type Severity Reaction Status Date / Time No Known Allergies Allergy Verified 08/12/18 14:33 Physical Exam Vitals: Vital Signs Temp Pulse Pulse Resp BP BP Pulse Ox 08/13/18 11:14 97.2 F L 73 18 117/64 97 08/13/18 08:00 97.3 F L 88 18 138/74 98 08/13/18 04:00 98.2 F 74 18 128/76 98 08/13/18 00:00 98 F 70 16 142/84 95 08/12/18 20:00 97.7 F 76 16 130/77 97 08/12/18 18:35 97.8 F 75 16 169/88 08/12/18 18:16 97.7 F 74 16 146/92 98 08/12/18 15:49 106 H 20 143/89 99 08/12/18 13:12 98.0 F 127 H 22 137/83 98 Intake and Output 08/12/18 08/13/18 08/13/18 22:59 06:59 14:59 Intake Total 240 300 Output Total 600 Balance 240 -600 300 Intake: Intake, IV Titration 300 Amount Sodium Chloride 0.9% 1, 300 000 ml In Empty Bag 1 bag @ 1 ML/KG/HR 98.2 mls/hr IV .[id number] ONE Rx#: [id number] Oral 240 Output: Urine 600 Other: # Voids 2 1 Weight 98.2 kg - Constitutional General appearance: mild distress - EENT Eyes: PERRLA Ears: bilateral: normal - Neck Neck: normal ROM - Respiratory Respiratory: bilateral: CTA - Cardiovascular Rhythm: regular - Gastrointestinal General gastrointestinal: soft - Integumentary Integumentary: normal - Neurologic Neurologic: CNII-XII intact - Musculoskeletal Musculoskeletal: gait normal - Psychiatric Psychiatric: A&O x's 3, appropriate affect, intact judgment & insight Results CBC & Chem 7: 08/13/18 06:49 08/13/18 06:49 Labs: Abnormal Lab Results - Last 24 Hours (Table) 08/12/18 08/12/18 08/12/18 Range/Units 13:26 13:26 13:26 WBC 3.4 L (3.8-10.6) k/uL RBC (4.30-5.90) m/uL Hgb (13.0-17.5) gm/dL Hct (39.0-53.0) % Plt Count 85 L (150-450) k/uL Lymphocytes # 0.9 L (1.0-4.8) k/uL INR (<1.2) APTT (22.0-30.0) sec Chloride 108 H (98-107) mmol/L Carbon Dioxide 21 L (22-30) mmol/L Glucose 170 H (74-99) mg/dL POC Glucose (mg/dL) (75-99) mg/dL Magnesium 1.3 L (1.6-2.3) mg/dL CK-MB (CK-2) 2.7 H (0.0-2.4) ng/mL Troponin I 0.087 H* (0.000-0.034) ng/mL Total Protein (6.3-8.2) g/dL 08/12/18 08/12/18 08/12/18 Range/Units 13:26 20:00 20:44 WBC (3.8-10.6) k/uL RBC (4.30-5.90) m/uL Hgb (13.0-17.5) gm/dL Hct (39.0-53.0) % Plt Count (150-450) k/uL Lymphocytes # (1.0-4.8) k/uL INR 1.2 H (<1.2) APTT (22.0-30.0) sec Chloride (98-107) mmol/L Carbon Dioxide (22-30) mmol/L Glucose (74-99) mg/dL POC Glucose (mg/dL) 150 H (75-99) mg/dL Magnesium (1.6-2.3) mg/dL CK-MB (CK-2) (0.0-2.4) ng/mL Troponin I 0.060 H* (0.000-0.034) ng/mL Total Protein (6.3-8.2) g/dL 08/12/18 08/13/18 08/13/18 Range/Units 21:41 02:40 04:34 WBC (3.8-10.6) k/uL RBC (4.30-5.90) m/uL Hgb (13.0-17.5) gm/dL Hct (39.0-53.0) % Plt Count (150-450) k/uL Lymphocytes # (1.0-4.8) k/uL INR (<1.2) APTT 44.7 H (22.0-30.0) sec Chloride (98-107) mmol/L Carbon Dioxide (22-30) mmol/L Glucose (74-99) mg/dL POC Glucose (mg/dL) 116 H (75-99) mg/dL Magnesium (1.6-2.3) mg/dL CK-MB (CK-2) (0.0-2.4) ng/mL Troponin I 0.054 H* (0.000-0.034) ng/mL Total Protein (6.3-8.2) g/dL 08/13/18 08/13/18 08/13/18 Range/Units 06:04 06:49 06:49 WBC 2.4 L (3.8-10.6) k/uL RBC 3.79 L (4.30-5.90) m/uL Hgb 11.9 L (13.0-17.5) gm/dL Hct 34.6 L (39.0-53.0) % Plt Count 67 L (150-450) k/uL Lymphocytes # 0.7 L (1.0-4.8) k/uL INR (<1.2) APTT (22.0-30.0) sec Chloride 110 H (98-107) mmol/L Carbon Dioxide (22-30) mmol/L Glucose 120 H (74-99) mg/dL POC Glucose (mg/dL) 138 H (75-99) mg/dL Magnesium (1.6-2.3) mg/dL CK-MB (CK-2) (0.0-2.4) ng/mL Troponin I (0.000-0.034) ng/mL Total Protein 6.0 L (6.3-8.2) g/dL 08/13/18 08/13/18 Range/Units 06:49 11:27 WBC (3.8-10.6) k/uL RBC (4.30-5.90) m/uL Hgb (13.0-17.5) gm/dL Hct (39.0-53.0) % Plt Count (150-450) k/uL Lymphocytes # (1.0-4.8) k/uL INR (<1.2) APTT 39.9 H (22.0-30.0) sec Chloride (98-107) mmol/L Carbon Dioxide (22-30) mmol/L Glucose (74-99) mg/dL POC Glucose (mg/dL) 198 H (75-99) mg/dL Magnesium (1.6-2.3) mg/dL CK-MB (CK-2) (0.0-2.4) ng/mL Troponin I (0.000-0.034) ng/mL Total Protein (6.3-8.2) g/dL Chest x-ray: report reviewed Thrombosis Risk Factor Assmnt - Choose All That Apply Each Risk Factor Represents 2 Points: Age 61-74 years Thrombosis Risk Factor Assessment Total Risk Factor Score: 2 Thrombosis Risk Factor Assessment Level: Low Risk Assessment and Plan Assessment: Assessment Chest pain non-STEMI elevated troponin History of coronary disease with NH with stents Diabetes type 2 GERD Hypertension Osteoarthritis BPH hypothyroidism History of bone cancer Plan Cardiac cath tomorrow continued cardiology consultation
[2018-08-13] MEDS: INSULIN ASPART 100 UNIT/ML 1 ML 10 ML VIAL SQ SCH ×3 (12:34→21:45)
[2018-08-13 17:06] LABS: Glucose,Whole Blood 137 mg/dL (75-99)
[2018-08-13] MEDS: ATORVASTATIN 80 MG TAB PO SCH (19:44)
[2018-08-13] MEDS: NORTRIPTYLINE 25 MG CAP PO SCH (19:44)
[2018-08-13] MEDS: GABAPENTIN 100 MG CAP PO SCH (19:44)
[2018-08-13 20:43] LABS: Glucose,Whole Blood 108 mg/dL (75-99)
[2018-08-14 03:54] LABS: Hemoglobin A1C 6.6 % (4.0-6.0)
[2018-08-14] MEDS: ASPIRIN 81 MG PO SCH (04:38)
[2018-08-14] MEDS: TAMSULOSIN 0.4 MG CAP.ER.24H PO SCH (04:38)
[2018-08-14] MEDS: amLODIPine 5 MG TAB PO SCH (04:38)
[2018-08-14] MEDS: ISOSORBIDE MONONITRATE ER 30 MG TAB.ER.24H PO SCH (04:38)
[2018-08-14] MEDS: PANTOPRAZOLE 40 MG TABLET PO SCH (04:38)
[2018-08-14] MEDS: TICAGRELOR 90 MG TAB PO SCH ×2 (04:44→21:01)
[2018-08-14] MEDS: METOPROLOL SUCCINATE (ER) 100 MG TAB.ER.24H PO SCH (04:44)
[2018-08-14] MEDS: INSULIN ASPART 100 UNIT/ML 1 ML 10 ML VIAL SQ SCH ×4 (05:43→21:31)
[2018-08-14] MEDS: DICYCLOMINE 20 MG TAB PO SCH (05:43)
[2018-08-14] MEDS: LEVOTHYROXINE 100 MCG TAB PO SCH (05:43)
[2018-08-14 06:22] LABS: Glucose,Whole Blood 104 mg/dL (75-99)
[2018-08-14 07:15] LABS: Basophils % (A) 1 %; Eosinophils # (A) 0.1 k/uL (0-0.7); Eosinophils % (A) 4 %; HGB 12.4 gm/dL (13.0-17.5); Lymphocytes # (A) 0.8 k/uL (1.0-4.8); Lymphocytes % (A) 25 %; MCH 31.1 pg (25.0-35.0); MCHC 33.4 g/dL (31.0-37.0); MCV 93.1 fL (80.0-100.0); Mean Platelet Volume 8.3; Monocytes # (A) 0.2 k/uL (0-1.0); Monocytes % (A) 5 %; Neutrophils # (A) 1.9 k/uL (1.3-7.7); Neutrophils % (A) 62 %; RBC 3.98 m/uL (4.30-5.90); RDW 14.1 % (11.5-15.5)
[2018-08-14 07:22] LABS: Platelet Count 89 k/uL (150-450)
[2018-08-14 07:29] LABS: Albumin 3.9 g/dL (3.5-5.0); Calcium 9.1 mg/dL (8.4-10.2); Magnesium 1.7 mg/dL (1.6-2.3); Potassium 4.3 mmol/L (3.5-5.1); Total Bilirubin 0.5 mg/dL (0.2-1.3); Total Protein 6.6 g/dL (6.3-8.2)
[2018-08-14 11:51] LABS: Glucose,Whole Blood 106 mg/dL (75-99)
[2018-08-14] MEDS ORDERED: LIDOCAINE 1% INJ 10MG/ML (20 ML MDV) ONE (12:18)
[2018-08-14] MEDS ORDERED: fentaNYL (PF) 50 MCG/ML 2 ML AMP ONE (12:18)
[2018-08-14] MEDS ORDERED: MIDAZOLAM 2 MG/2 ML VIAL ONE (12:18)
[2018-08-14] MEDS ORDERED: MIDAZOLAM 2 MG/2 ML VIAL IVP ONE (12:39)
[2018-08-14] MEDS ORDERED: IV FLUID CONTINUATION 1,000 ML IV ONE (12:40)
[2018-08-14] MEDS ORDERED: fentaNYL (PF) 50 MCG/ML 2 ML AMP IVP ONE (12:40)
[2018-08-14] MEDS ORDERED: LIDOCAINE 1% (PF) 10MG/ML VIAL SQ ONE (12:43)
[2018-08-14] MEDS ORDERED: BIVALIRUDIN BOLUS 250 MG/50 ML IV ONE (13:09)
[2018-08-14] MEDS ORDERED: BIVALIRUDIN 250 MG in SODIUM CHLORIDE 0.9% 50 ML IV ONE (13:10)
[2018-08-14] MEDS ORDERED: ADENOSINE 90 MG in SODIUM CHLORIDE 0.9% 60 ML IVP ONE ×4 (13:11)
[2018-08-14] MEDS ORDERED: SODIUM CHLORIDE 0.9% 1,000 ML IV ONE (13:22)
[2018-08-14] MEDS ORDERED: RX INFO: IV CONTRAST WAS GIVEN 1 EACH MISC MISCELLANE PRN (13:26)
[2018-08-14] MEDS ORDERED: IOPAMIDOL-370 125ML BTL INJ ONE (13:26)
[2018-08-14] MEDS ORDERED: SODIUM CHLORIDE 0.9% 1,000 ML IV SCH (13:30)
[2018-08-14] MEDS: ACETAMINOPHEN TAB 325 MG TAB PO PRN (14:28)
[2018-08-14] MEDS ORDERED: BUTALB/APAP/CAFF 50-325-40MG TAB PO PRN (14:36)
--- NOTE | 2018-08-14 15:48 | EEG ---
ELECTROENCEPHALOGRAM REPORT FRACTIONAL FLOW RESERVE: DATE OF SERVICE: 08/14/2018 PERFORMING PHYSICIAN: Jn Cisse MD, semiconductor wafer inspector. PROCEDURE PERFORMED: Fractional flow reserve of the left circumflex coronary artery. INDICATION: This is a pleasant 72-year-old gentleman who sees Dr. Hammer in the office as an outpatient. He is known to have coronary artery disease and prior stenting of the LAD and left circumflex. He presented to the hospital complaining of chest discomfort. He was ruled in for acute xav-UR-tiwwbmsfe myocardial infarction. He underwent heart catheterization by Dr. Janessa Hammer and that revealed intermediate disease involving the mid left circumflex. The decision was made to proceed with fractional flow reserve of the left circumflex. COMPLICATIONS: None. LEVEL OF SEDATION: Moderate. Sedation length 15 minutes. APPROACH: Right common femoral artery. PROCEDURE DESCRIPTION: After diagnostic heart catheterization was performed by Dr. Hammer, we decided to pursue an FFR of the left circumflex. Anticoagulation was initiated using Angiomax. Subsequently, after zeroing the Doppler wire and equalizing between the Doppler wire and the guiding catheter, which was an XB 3 5 guiding catheter, we did an FFR per IV adenosine infusion. The FFR came in to be 0.93, which is non-ischemic. The procedure was completed without any complication. CONCLUSION: Fractional flow reserve of the left circumflex was performed and came in to be non- ischemic at 0.93. POST-PROCEDURE MANAGEMENT: 1. Maximize medical treatment. 2. Risk factor modifications. 3. Follow up with the patient. MMODL / IJN: [id number] /
[2018-08-14] MEDS ORDERED: ATROPINE SULFATE 0.1 MG/ML 10ML SYRINGE ONE (15:49)
[2018-08-14 16:57] LABS: Glucose,Whole Blood 152 mg/dL (75-99)
--- NOTE | 2018-08-14 20:09 | CC ---
CARDIAC CATHETERIZATION REPORT Mr. Ling has a known history of coronary artery disease. The patient recently was admitted with history of a non-Q-wave myocardial infarction and underwent a stent to the calcified mid LAD. At that time patient was found to have a borderline lesion in the circumflex artery and the patient was brought back for the FFR. The patient was admitted again with chest pain. Patient had a mild elevation in the troponin suggestive of possible non-Q-wave myocardial infarction. In view of that, the patient was recommended to have a repeat cardiac catheterization. PROCEDURE: The right groin was prepped and draped in the usual manner and the skin was infiltrated with 2% Xylocaine. The right femoral artery was entered using micropuncture needle and a #6-Romansh sheath was subsequently placed in and selective coronary angiography was performed in multiple projections. Moderate sedation was used. Total sedation time was 20 minutes. SELECTIVE CORONARY ANGIOGRAPHY: Left main coronary artery is normally patent. LAD is a good caliber blood vessel, is patent at the site of the prior stent placement. Proximally, right near the bifurcation into the diagonal branch there is a 30% stenosis. Diagonal branch is average caliber blood vessel and mid portion of the diagonal branch has a 30-40% stenosis. Circumflex coronary artery is a good caliber blood vessels. Proximally circumflex coronary artery has a 30-40% stenosis. The mid circumflex coronary artery just in the stent has about 50% stenosis which is unchanged from before. Right coronary artery is normal. RECOMMENDATIONS: We reviewed the films with Dr. Cisse. We will proceed with FFR to the circumflex coronary artery and depending upon the findings, we will make more recommendations. MMODL / IJN: [id number] /
[2018-08-14] MEDS: MORPHINE SULFATE 4 MG/ML SYRINGE IV PRN (21:00)
[2018-08-14] MEDS: NORTRIPTYLINE 25 MG CAP PO SCH (21:01)
[2018-08-14] MEDS: GABAPENTIN 100 MG CAP PO SCH (21:01)
[2018-08-14] MEDS: ATORVASTATIN 80 MG TAB PO SCH (21:01)
[2018-08-14 21:17] LABS: Glucose,Whole Blood 104 mg/dL (75-99)
[2018-08-15 06:29] LABS: Glucose,Whole Blood 82 mg/dL (75-99)
[2018-08-15 06:39] LABS: Basophils % (A) 1 %; Eosinophils # (A) 0.1 k/uL (0-0.7); Eosinophils % (A) 3 %; HCT 36.7 % (39.0-53.0); HGB 12.2 gm/dL (13.0-17.5); Lymphocytes # (A) 0.7 k/uL (1.0-4.8); Lymphocytes % (A) 24 %; MCH 30.4 pg (25.0-35.0); MCHC 33.3 g/dL (31.0-37.0); MCV 91.5 fL (80.0-100.0); Mean Platelet Volume 8.8; Monocytes # (A) 0.2 k/uL (0-1.0); Monocytes % (A) 5 %; Neutrophils # (A) 1.8 k/uL (1.3-7.7); Neutrophils % (A) 63 %; RBC 4.01 m/uL (4.30-5.90); RDW 14.1 % (11.5-15.5); WBC 2.8 k/uL (3.8-10.6)
[2018-08-15 06:46] LABS: Platelet Count 76 k/uL (150-450)
[2018-08-15] MEDS: INSULIN ASPART 100 UNIT/ML 1 ML 10 ML VIAL SQ SCH ×2 (07:03→12:17)
[2018-08-15] MEDS: METOPROLOL SUCCINATE (ER) 100 MG TAB.ER.24H PO SCH (08:36)
[2018-08-15] MEDS: DICYCLOMINE 20 MG TAB PO SCH (08:36)
[2018-08-15] MEDS: TICAGRELOR 90 MG TAB PO SCH (08:36)
[2018-08-15] MEDS: ISOSORBIDE MONONITRATE ER 30 MG TAB.ER.24H PO SCH (08:36)
[2018-08-15] MEDS: TAMSULOSIN 0.4 MG CAP.ER.24H PO SCH (08:36)
[2018-08-15] MEDS: amLODIPine 5 MG TAB PO SCH (08:36)
[2018-08-15] MEDS: ASPIRIN 81 MG PO SCH (08:36)
[2018-08-15] MEDS: PANTOPRAZOLE 40 MG TABLET PO SCH (08:36)
[2018-08-15] MEDS: LEVOTHYROXINE 100 MCG TAB PO SCH (08:37)
[2018-08-15] MEDS: ACETAMINOPHEN TAB 325 MG TAB PO PRN (08:45)
[2018-08-15 08:51] VITALS: RESP 16; TEMP 96.6
[2018-08-15] MEDS ORDERED: metFORMIN 500 MG TAB PO SCH (09:00)
--- NOTE | 2018-08-15 09:35 | P.PN ---
Subjective Progress Note Date: 08/15/18 This is a pleasant 72-year-old gentleman who sees Dr. VC Hammer in the office as an outpatient with known history of coronary artery disease and prior stenting of the LAD and left circumflex presented to the hospital with chest discomfort and mildly abnormal cardiac enzymes. He underwent heart catheterization by Dr. Hammer yesterday and was found to have patent stent in the LAD with intermediate disease involving the left circumflex. I did perform fractional flow reserve FFR of the left circumflex and that came in to be nonischemic. On follow-up with him today, he denies having any chest pain or discomfort or shortness of breath. The right groin is very tender was a small hematoma noted. I am going to obtain an ultrasound of the right groin to rule out any pseudoaneurysm. If that came in to be negative the patient can be discharged home. Objective - Vital Signs Vital signs: Vital Signs Temp 96.6 F L 08/15/18 08:00 Pulse 73 08/15/18 08:00 Resp 16 08/15/18 08:00 BP 130/71 08/15/18 08:00 Pulse Ox 99 08/15/18 08:00 Intake & Output 08/14/18 08/15/18 08/15/18 18:59 06:59 18:59 Intake Total 334 240 Output Total 775 900 500 Balance -441 -900 -260 Weight 100 kg Intake: IV 94 Oral 240 240 Output: Urine 775 900 500 Other: # Voids 2 - Constitutional General appearance: Present: no acute distress - Respiratory Respiratory: bilateral: CTA - Cardiovascular Rhythm: regular Heart sounds: normal: S1, S2 - Labs CBC & Chem 7: 08/15/18 06:16 08/14/18 06:39 Labs: Abnormal Lab Results - Last 24 Hours (Table) 08/14/18 08/14/18 08/14/18 Range/Units 11:49 16:45 21:15 WBC (3.8-10.6) k/uL RBC (4.30-5.90) m/uL Hgb (13.0-17.5) gm/dL Hct (39.0-53.0) % Plt Count (150-450) k/uL Lymphocytes # (1.0-4.8) k/uL POC Glucose (mg/dL) 106 H 152 H 104 H (75-99) mg/dL 08/15/18 Range/Units 06:16 WBC 2.8 L (3.8-10.6) k/uL RBC 4.01 L (4.30-5.90) m/uL Hgb 12.2 L (13.0-17.5) gm/dL Hct 36.7 L (39.0-53.0) % Plt Count 76 L (150-450) k/uL Lymphocytes # 0.7 L (1.0-4.8) k/uL POC Glucose (mg/dL) (75-99) mg/dL Assessment and Plan Assessment: Assessment #1 acute non-ST patient myocardial infarction #2 known CAD and prior stenting of the LAD and left circumflex #3 small right groin hematoma and tenderness Plan #1 the patient is on maximize medical treatment including dual antiplatelet therapy #2 the vitals are stable and he is asymptomatic at this point #3 obtain an ultrasound of the right groin to rule out any pseudoaneurysm #4 possible discharge home later on today
--- NOTE | 2018-08-15 11:02 | US ---
EXAMINATION TYPE: US groin RT DATE OF EXAM: 08/15/2018 COMPARISON: NONE CLINICAL HISTORY: sheath pull. Recent heart cath. (08/14/2018) SInce having pain and bruising in groin. Rt groin appears wnl. IMPRESSION: NO EVIDENCE OF A PSEUDOANEURYSM AT THIS TIME.
[2018-08-15 11:13] LABS: Glucose,Whole Blood 92 mg/dL (75-99)
--- NOTE | 2018-08-15 11:55 | XR ---
EXAMINATION TYPE: XR chest 2V DATE OF EXAM: 08/15/2018 HISTORY: ro PE. REFERENCE: Previous study dated 08/12/2018. FINDINGS: Lung volumes are prominent. The lungs are clear. Pleural spaces are clear. Heart size upper limits of normal. IMPRESSION: 1. NO ACUTE INTRATHORACIC ABNORMALITY. 2. PLEASE CORRELATE FOR COPD.
[2018-08-15 12:36] VITALS: BP 126/75; PULSE 77
--- NOTE | 2018-08-15 15:19 | P.DS ---
Providers Date of admission: 08/12/18 15:15 Attending physician: Micheal Adamson Consults: 08/12/18 15:16 Consult Physician Urgent Consulting Provider: Abhishek Patel Consult Reason/Comments: NSTEMI Do you want consulting provider notified?: Already Contacted Primary care physician: Micheal Adamson Hospital Course: 72-year-old admitted with chest pain underwent cardiac catheterization which did not show any significant coronary occlusive disease that needed stenting. Patient underwent the fractional flow reserve testing and found to be nonischemic. Patient is still complaining of generalized tiredness and unsure of the etiology TSH can be done but I don't need to acute the patient to do TSH here. Patient will followed primary care physician Matthew did a d-dimer which was negative for pulmonary embolism. Patient will be discharged today in stable medical condition to home. PHYSICAL EXAMINATION: GENERAL: The patient is alert and oriented x3, not in any acute distress. Well developed, well nourished. HEENT: Pupils are round and equally reacting to light. EOMI. No scleral icterus. No conjunctival pallor. Normocephalic, atraumatic. No pharyngeal erythema. No thyromegaly. CARDIOVASCULAR: S1 and S2 present. No murmurs, rubs, or gallops. PULMONARY: Chest is clear to auscultation, no wheezing or crackles. ABDOMEN: Soft, nontender, nondistended, normoactive bowel sounds. No palpable organomegaly. MUSCULOSKELETAL: No joint swelling or deformity. EXTREMITIES: No cyanosis, clubbing, or pedal edema. NEUROLOGICAL: Gross neurological examination did not reveal any focal deficits. SKIN: No rashes. Assessment Chest pain cardiac cath reports as mentioned above History of coronary disease with PA with stents Diabetes type 2 GERD Hypertension Osteoarthritis BPH hypothyroidism History of bone cancer Patient Condition at Discharge: Stable Plan - Discharge Summary Discharge Rx Participant: No New Discharge Prescriptions: Continue Dicyclomine HCl 20 mg PO DAILY Levothyroxine Sodium [Synthroid] 100 mcg PO DAILY Omeprazole 40 mg PO DAILY Nortriptyline [Pamelor] 25 mg PO HS Tamsulosin [Flomax] 0.4 mg PO DAILY amLODIPine [Norvasc] 5 mg PO DAILY Metoprolol Succinate (ER) [Toprol XL] 100 mg PO DAILY Aspirin EC [Ecotrin Low Dose] 81 mg PO DAILY clonazePAM [KlonoPIN] 0.5 mg PO DAILY PRN PRN Reason: Anxiety Gabapentin [Neurontin] 100 mg PO HS Loperamide [Imodium] 2 mg PO DAILY PRN PRN Reason: Constipation Atorvastatin [Lipitor] 80 mg PO HS #30 tab Nitroglycerin Sl Tabs [Nitrostat] 0.4 mg SUBLINGUAL Q5M PRN #25 tab PRN Reason: Chest Pain Ticagrelor [Brilinta] 90 mg PO BID #60 tab Isosorbide Mononitrate ER [Imdur] 30 mg PO DAILY #30 tab.er.24h metFORMIN HCL 1,000 mg PO DAILY #0 Discharge Medication List Dicyclomine HCl 20 mg PO DAILY 05/24/14 [History] Levothyroxine Sodium [Synthroid] 100 mcg PO DAILY 05/24/14 [History] Omeprazole 40 mg PO DAILY 05/24/14 [History] Nortriptyline [Pamelor] 25 mg PO HS 02/23/15 [History] Metoprolol Succinate (ER) [Toprol XL] 100 mg PO DAILY 10/11/16 [History] Tamsulosin [Flomax] 0.4 mg PO DAILY 10/11/16 [History] amLODIPine [Norvasc] 5 mg PO DAILY 10/11/16 [History] Aspirin EC [Ecotrin Low Dose] 81 mg PO DAILY 12/26/16 [History] Gabapentin [Neurontin] 100 mg PO HS 01/26/18 [History] clonazePAM [KlonoPIN] 0.5 mg PO DAILY PRN 01/26/18 [History] Loperamide [Imodium] 2 mg PO DAILY PRN 04/13/18 [History] Atorvastatin [Lipitor] 80 mg PO HS #30 tab 07/31/18 [Rx] Isosorbide Mononitrate ER [Imdur] 30 mg PO DAILY #30 tab.er.24h 07/31/18 [Rx] Nitroglycerin Sl Tabs [Nitrostat] 0.4 mg SUBLINGUAL Q5M PRN #25 tab 07/31/18 [Rx ] Ticagrelor [Brilinta] 90 mg PO BID #60 tab 07/31/18 [Rx] metFORMIN HCL 1,000 mg PO DAILY #0 07/31/18 [Rx] Follow up Appointment(s)/Referral(s): Micheal Adamson MD [Primary Care Provider] - 08/20/18 11:30 am () Sony Hammer MD [STAFF PHYSICIAN] - 08/21/18 2:30 pm (September appointment cancelled.) Patient Instructions/Handouts: *Surgery [facility] - After Heart Catheterization - [facility] Instructions, Heart Healthy Diet (DC), Safe Use of Anticoagulants (DC)
--- NOTE | 2018-08-17 09:15 | PCN ---
PROCEDURE NOTE FRACTIONAL FLOW RESERVE DATE OF SERVICE 08/14/2018 PERFORMING PHYSICIAN Jn Cisse MD, concrete worker. PROCEDURE PERFORMED Fractional flow reserve of the left circumflex coronary artery. INDICATION This is a pleasant 72-year-old gentleman who sees Dr. Hammer in the office as an outpatient. He is known to have coronary artery disease and prior stenting of the LAD and left circumflex. He presented to the hospital complaining of chest discomfort. He was ruled in for acute [id number] myocardial infarction. He underwent heart catheterization by Dr. Janessa Hammer and that revealed intermediate disease involving the mid left circumflex. The decision was made to proceed with fractional flow reserve of the left circumflex. COMPLICATIONS None. LEVEL OF SEDATION Moderate. Sedation length 15 minutes. APPROACH Right common femoral artery. PROCEDURE DESCRIPTION After diagnostic heart catheterization was performed by Dr. Hammer, we decided to pursue an FFR of the left circumflex. Anticoagulation was initiated using Angiomax. Subsequently, after zeroing the Doppler wire and equalizing between the Doppler wire and the guiding catheter, which was an XB 3 5 guiding catheter, we did an FFR per IV adenosine infusion. The FFR came in to be 0.93, which is non-ischemic. The procedure was completed without any complication. CONCLUSION Fractional flow reserve of the left circumflex was performed and came in to be non- ischemic at 0.93. POST-PROCEDURE MANAGEMENT 1. Maximize medical treatment. 2. Risk factor modifications. 3. Follow up with the patient. MMODL / DONALDN: [id number] /
== END 2018-08-15 15:22 | disposition home or self-care (01) | DRG 281 ==
LOC: EC 13:08 → 6SEL 15:15
PROVIDERS: ADMIT Family Medicine; ATTEND Family Medicine
PROC: 4A033BC Measurement of Arterial Pressure, Coronary, Percutaneous Approach (ICD-10-PCS; 2018-08-14)
PROC: 4A023N7 Measurement of Cardiac Sampling and Pressure, Left Heart, Percutaneous Approach (ICD-10-PCS; principal; 2018-08-14 07:30)
PROC: B2111ZZ Fluoroscopy of Multiple Coronary Arteries using Low Osmolar Contrast (ICD-10-PCS; 2018-08-14 07:30)
DX: I21.4 Non-ST elevation (NSTEMI) myocardial infarction (principal); L76.32 Postprocedural hematoma of skin and subcutaneous tissue following other procedure; Z94.81 Bone marrow transplant status; I25.10 Atherosclerotic heart disease of native coronary artery without angina pectoris; I25.2 Old myocardial infarction; N18.9 Chronic kidney disease, unspecified; I12.9 Hypertensive chronic kidney disease with stage 1 through stage 4 chronic kidney disease, or unspecified chronic kidney disease; Z95.5 Presence of coronary angioplasty implant and graft; E11.22 Type 2 diabetes mellitus with diabetic chronic kidney disease; K21.9 Gastro-esophageal reflux disease without esophagitis; Y83.8 Other surgical procedures as the cause of abnormal reaction of the patient, or of later complication, without mention of misadventure at the time of the procedure; Z87.19 Personal history of other diseases of the digestive system; Z98.42 Cataract extraction status, left eye; Z98.41 Cataract extraction status, right eye; Z96.1 Presence of intraocular lens; E03.9 Hypothyroidism, unspecified; Z79.890 Hormone replacement therapy; Z79.84 Long term (current) use of oral hypoglycemic drugs; Z79.899 Other long term (current) drug therapy; M19.90 Unspecified osteoarthritis, unspecified site; N40.0 Benign prostatic hyperplasia without lower urinary tract symptoms; Z85.830 Personal history of malignant neoplasm of bone; Z92.21 Personal history of antineoplastic chemotherapy; R10.31 Right lower quadrant pain; G89.29 Other chronic pain; K57.90 Diverticulosis of intestine, part unspecified, without perforation or abscess without bleeding; Z87.442 Personal history of urinary calculi; Z91.81 History of falling; Z82.3 Family history of stroke; Z83.3 Family history of diabetes mellitus; Z80.9 Family history of malignant neoplasm, unspecified; Z82.0 Family history of epilepsy and other diseases of the nervous system; Z82.49 Family history of ischemic heart disease and other diseases of the circulatory system; E78.5 Hyperlipidemia, unspecified
CPT/HCPCS: 36415; 71046; 78451; 80053; 82550; 82553; 83036; 83690; 83735; 83880; 84484; 85025; 85379; 85610; 85730; 93005; 93454; 93571; 96365; 96368; 96375; 96376; 99291

== ENCOUNTER 2018-09-01 17:09 | Emergency (ER) | payer MEDICARE, OTHER ==
[2018-09-01 17:19] VITALS: TEMP 97.7
[2018-09-01] MEDS ORDERED: DOCUSATE 283 MG/5 ML ENEMA RECTAL STA (17:53)
[2018-09-01] MEDS ORDERED: SODIUM CHLORIDE 0.9% 1,000 ML IV STA ×2 (17:53)
--- NOTE | 2018-09-01 17:56 | ED ---
Abdominal Pain HPI - General Source: patient, EMS, RN notes reviewed, old records reviewed Mode of arrival: EMS Limitations: no limitations <Teetee Gamez - Last Filed: 09/01/18 19:41> <Josué Lepe - Last Filed: 09/01/18 20:34> - General Chief Complaint: Abdominal Pain Stated Complaint: constipation Time Seen by Provider: 09/01/18 17:24 - History of Present Illness Initial Comments: 72-year-old male presents to ED with CC of constipation. Patient reports that he has not had a bowel movement within the past 4 days. He reports he feels very full and distended. He did feel nauseated and arrived via EMS that he can Zofran. He was recently hospitalized for non-STEMI. He had 2 cardiac stents placed. At this time he denies any chest pain or shortness of breath. Patient states that he has had MiraLAX with little relief to produce a bowel movement. He's had have enemas before. Patient relates that he's had no fevers or chills. Abdominal Surgical history includes cholecystectomy appendectomy and 3 hernia repairs. (Teetee Gamez) - Related Data Home Medications Medication Instructions Recorded Confirmed Dicyclomine HCl 20 mg PO DAILY 05/24/14 09/01/18 Levothyroxine Sodium [Synthroid] 100 mcg PO DAILY 05/24/14 09/01/18 Omeprazole 40 mg PO DAILY 05/24/14 09/01/18 Nortriptyline [Pamelor] 25 mg PO HS 02/23/15 09/01/18 Metoprolol Succinate (ER) [Toprol 100 mg PO DAILY 10/11/16 09/01/18 XL] Tamsulosin [Flomax] 0.4 mg PO DAILY 10/11/16 09/01/18 amLODIPine [Norvasc] 5 mg PO DAILY 10/11/16 09/01/18 Aspirin EC [Ecotrin Low Dose] 81 mg PO DAILY 12/26/16 09/01/18 Gabapentin [Neurontin] 100 mg PO HS 01/26/18 09/01/18 clonazePAM [KlonoPIN] 0.5 mg PO DAILY PRN 01/26/18 09/01/18 Loperamide [Imodium] 2 mg PO DAILY PRN 04/13/18 09/01/18 Previous Rx's Medication Instructions Recorded Atorvastatin [Lipitor] 80 mg PO HS #30 tab 07/31/18 Isosorbide Mononitrate ER [Imdur] 30 mg PO DAILY #30 tab.er.24h 07/31/18 Nitroglycerin Sl Tabs [Nitrostat] 0.4 mg SUBLINGUAL Q5M PRN #25 tab 07/31/18 Ticagrelor [Brilinta] 90 mg PO BID #60 tab 07/31/18 metFORMIN HCL 1,000 mg PO DAILY #0 07/31/18 Docusate [Colace] 100 mg PO DAILY #20 capsule 09/01/18 Allergies Allergy/AdvReac Type Severity Reaction Status Date / Time No Known Allergies Allergy Verified 09/01/18 17:21 Review of Systems ROS Other: All systems not noted in ROS Statement are negative. <Teetee Gamez - Last Filed: 09/01/18 19:41> ROS Other: All systems not noted in ROS Statement are negative. <Josué Lepe - Last Filed: 09/01/18 20:34> ROS Statement: Those systems with pertinent positive or pertinent negative responses have been documented in the HPI. 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 [facility], chronic intermittedt R lower abdominal pain with etiology unknown, NIDDM type II , BPH, rectal bleed, diverticulosis, kidney stones, pt denies any kidney disease other than stones."CHIPPED DISC" d/t faLL IN NOVEMBER Last Myocardial Infarction Date:: 2017(non q wave) History of Any Multi-Drug Resistant Organisms: None Reported Past Surgical History: Adenoidectomy, Appendectomy, Cholecystectomy, Heart Catheterization With Stent, Hernia Repair, Orthopedic Surgery, Tonsillectomy Additional Past Surgical History / Comment(s): Bilateral carpal tunnel, bone spur removals to bilateral heels and FEET," 8 cardiac STENTS", B/L KNEE BONE SPURS, CATARACTS JA with lens implants, JA INGUINAL HERNIA REPAIR AND UMBILLICAL. removal of malignant tumor from back,EGD 8-2-17, RT LEG SX FOR TORN LIGAMENT."WAS BORN W/ OVERSIZED LIVER HAD SX TO REDUCE IT'S SIZE" Past Anesthesia/Blood Transfusion Reactions: No Reported Reaction Additional Past Anesthesia/Blood Transfusion Reaction / Comment(s): Pt states he has received blood in the past without reaction. Date of Last Stent Placement:: 2017 Past Psychological History: Depression Smoking Status: Never smoker Past Alcohol Use History: None Reported Past Drug Use History: None Reported - Past Family History Father Family Medical History: Myocardial Infarction (SD) Additional Family Medical History / Comment(s): PTBA Mother Family Medical History: CVA/TIA, Diabetes Mellitus Additional Family Medical History / Comment(s): Mother of a CVA at the age of 82 yrs. Brother(s) Family Medical History: Cancer Additional Family Medical History / Comment(s): 2 brothers have MS <Teetee Gamez - Last Filed: 09/01/18 19:41> General Exam Limitations: no limitations General appearance: alert, in no apparent distress Head exam: Present: atraumatic, normocephalic, normal inspection Eye exam: Present: normal appearance, PERRL, EOMI. Absent: scleral icterus, conjunctival injection, periorbital swelling ENT exam: Present: normal exam, mucous membranes moist Neck exam: Present: normal inspection. Absent: tenderness, meningismus, lymphadenopathy Respiratory exam: Present: normal lung sounds bilaterally. Absent: respiratory distress, wheezes, rales, rhonchi, stridor Cardiovascular Exam: Present: regular rate, normal rhythm, normal heart sounds. Absent: systolic murmur, diastolic murmur, rubs, gallop, clicks GI/Abdominal exam: Present: distended, normal bowel sounds. Absent: soft, tenderness, guarding, rebound, rigid Extremities exam: Present: normal inspection, full ROM, normal capillary refill. Absent: tenderness, pedal edema, joint swelling, calf tenderness Back exam: Present: normal inspection Neurological exam: Present: alert, oriented X3, CN II-XII intact <Teetee Gamez - Last Filed: 09/01/18 19:41> <Josué Lepe - Last Filed: 09/01/18 20:34> - General Exam Comments Initial Comments: This patient's a 72-year-old male. Alert and oriented 3. Patient appears in no acute distress. (Teetee Gamez) Course <Teetee Gamez - Last Filed: 09/01/18 19:41> <Josué Lepe - Last Filed: 09/01/18 20:34> Vital Signs 09/01/18 17:17 Temperature 97.7 F Pulse Rate 76 Respiratory 18 Rate Blood Pressure 137/73 O2 Sat by Pulse 98 Oximetry - Reevaluation(s) Reevaluation #1: 09/01/18 19:41 Patient is given Therevac, proceeded to have a bowel movement. He is feeling much better at this time and like to be discharged home. (Teetee Gamez) Reevaluation #2: 09/01/18 20:33 PA supervision: I did personally do a [id number] evaluation patient and did discuss findings with the patient did demonstrate abdominal discomfort. He feels better after bowel movement. He did have some bleeding likely hemorrhoidal. I do agree with the assessment and plan. (Josué Lepe) Medical Decision Making - Lab Data Result diagrams: 09/01/18 18:20 09/01/18 18:20 <Teetee Gamez - Last Filed: 09/01/18 19:41> - Lab Data Result diagrams: 09/01/18 18:20 09/01/18 18:20 <Josué Lepe - Last Filed: 09/01/18 20:34> - Medical Decision Making 72-year-old male process raise her 13 point constipation. Patient states that he's not had bowel movements 3-4 days. He did take some Maalox without relief. Abdomen does appear be somewhat distended. KUB shows normal bowel gas pattern. No concern for bowel obstruction. Due to the Patient Therevac and 90 proceeded to have a large bowel movement. He does feel better at this time. Lab work was reviewed today mild dehydration noted BUN is slightly elevated compared to previous. At this time Patient denies any chest pain shortness breath. Recent cardiac stenting. His hemoglobin is stable as well. I did discuss he feels better. Also Proventil a stool softeners and ice have close follow-up with primary care physician. Patient agrees to plan will comply. Return parameters were discussed. (Teetee Gamez) - Lab Data Lab Results 09/01/18 09/01/18 09/01/18 Range/Units 18:20 18:20 18:20 WBC 2.7 L (3.8-10.6) k/uL RBC 3.80 L (4.30-5.90) m/uL Hgb 12.0 L (13.0-17.5) gm/dL Hct 35.0 L (39.0-53.0) % MCV 92.2 (80.0-100.0) fL MCH 31.6 (25.0-35.0) pg MCHC 34.2 (31.0-37.0) g/dL RDW 14.5 (11.5-15.5) % Plt Count 64 L (150-450) k/uL Neutrophils % 58 % Lymphocytes % 29 % Monocytes % 4 % Eosinophils % 5 % Basophils % 0 % Neutrophils # 1.6 (1.3-7.7) k/uL Lymphocytes # 0.8 L (1.0-4.8) k/uL Monocytes # 0.1 (0-1.0) k/uL Eosinophils # 0.1 (0-0.7) k/uL Basophils # 0.0 (0-0.2) k/uL Sodium 139 (137-145) mmol/L Potassium 4.1 (3.5-5.1) mmol/L Chloride 106 (98-107) mmol/L Carbon Dioxide 24 (22-30) mmol/L Anion Gap 9 mmol/L BUN 27 H (9-20) mg/dL Creatinine 1.35 H (0.66-1.25) mg/dL Est GFR (CKD-EPI)AfAm 61 (>60 ml/min/1.73 sqM) Est GFR (CKD-EPI)NonAf 53 (>60 ml/min/1.73 sqM) Glucose 160 H (74-99) mg/dL Calcium 8.7 (8.4-10.2) mg/dL Total Bilirubin 0.4 (0.2-1.3) mg/dL AST 31 (17-59) U/L ALT 48 (21-72) U/L Alkaline Phosphatase 76 (38-126) U/L Total Protein 7.0 (6.3-8.2) g/dL Albumin 4.1 (3.5-5.0) g/dL Amylase 38 (30-110) U/L Lipase 62 (23-300) U/L Urine Color Yellow Urine Appearance Clear (Clear) Urine pH 5.5 (5.0-8.0) Ur Specific [place] 1.018 (1.001-1.035) Urine Protein Negative (Negative) Urine Glucose (UA) Negative (Negative) Urine Ketones Negative (Negative) Urine Blood Trace H (Negative) Urine Nitrite Negative (Negative) Urine Bilirubin Negative (Negative) Urine Urobilinogen <2.0 (<2.0) mg/dL Ur Leukocyte Esterase Negative (Negative) Urine RBC 2 (0-5) /hpf Urine WBC 1 (0-5) /hpf Disposition Is patient prescribed a controlled substance at d/c from ED?: No Time of Disposition: 19:42 <Teetee Gamez - Last Filed: 09/01/18 19:41> <Josué Lepe - Last Filed: 09/01/18 20:34> Clinical Impression: Constipation Disposition: HOME SELF-CARE Condition: Good Instructions: Constipation (ED) Additional Instructions: Patient advised to take a stool softener as directed. Increase fluid intake. Return to emergency department if any alarming signs or symptoms occur. Prescriptions: Docusate [Colace] 100 mg PO DAILY #20 capsule Referrals: Micheal Adamson MD [Primary Care Provider] - 1-2 days
[2018-09-01 18:37] LABS: Basophils % (A) 0 %; Eosinophils # (A) 0.1 k/uL (0-0.7); Eosinophils % (A) 5 %; Lymphocytes # (A) 0.8 k/uL (1.0-4.8); Lymphocytes % (A) 29 %; MCH 31.6 pg (25.0-35.0); MCHC 34.2 g/dL (31.0-37.0); MCV 92.2 fL (80.0-100.0); Mean Platelet Volume 9.6; Monocytes # (A) 0.1 k/uL (0-1.0); Monocytes % (A) 4 %; Neutrophils # (A) 1.6 k/uL (1.3-7.7); Neutrophils % (A) 58 %; RDW 14.5 % (11.5-15.5); WBC 2.7 k/uL (3.8-10.6)
[2018-09-01 18:46] LABS: Albumin 4.1 g/dL (3.5-5.0); Calcium 8.7 mg/dL (8.4-10.2); Potassium 4.1 mmol/L (3.5-5.1); Total Bilirubin 0.4 mg/dL (0.2-1.3)
[2018-09-01 18:47] LABS: Appearance,Urine Clear (Clear); Bilirubin,Urine Negative (Negative); Blood,Urine Trace (Negative); Color,Urine Yellow; Glucose,Urine (UA) Negative (Negative); Ketones,Urine Negative (Negative); Leukocyte Esterase,Urine Negative (Negative); Nitrite,Urine Negative (Negative); PH, Urine 5.5 (5.0-8.0); Protein,Urine Negative (Negative); RBC,Urine 2 /hpf (0-5); Specific Gravity,Urine 1.018 (1.001-1.035); Urobilinogen,Urine <2.0 mg/dL (<2.0); WBC,Urine 1 /hpf (0-5)
[2018-09-01 18:50] LABS: Platelet Count 64 k/uL (150-450)
--- NOTE | 2018-09-01 19:11 | XR ---
EXAMINATION TYPE: XR KUB DATE OF EXAM: 09/01/2018 6:59 PM CLINICAL HISTORY: Constipation for one week with abdominal pain and nausea TECHNIQUE: Two Upright KUB images of the abdomen are obtained. COMPARISON: Abdominal CT February 14, 2018. Abdominal x-ray March 14, 2018. FINDINGS: Scattered gas is seen in non-distended small bowel loops. Gas and fecal material is seen in non-distended colon. Cholecystectomy clips are redemonstrated. Lung bases are clear. No pneumoperito neum is identified. Moderate joint space loss in both hips is present. IMPRESSION: Overall nonobstructive bowel gas pattern. No significant change from prior.
[2018-09-01 20:48] VITALS: BP 138/75; PULSE 85; RESP 16
== END 2018-09-01 20:55 | disposition home or self-care (01) ==
LOC: EC 17:09
DX: K59.00 Constipation, unspecified (principal); E86.0 Dehydration; R79.89 Other specified abnormal findings of blood chemistry; I25.119 Atherosclerotic heart disease of native coronary artery with unspecified angina pectoris; E11.9 Type 2 diabetes mellitus without complications; K21.9 Gastro-esophageal reflux disease without esophagitis; I10 Essential (primary) hypertension; I25.2 Old myocardial infarction; M19.90 Unspecified osteoarthritis, unspecified site; N40.0 Benign prostatic hyperplasia without lower urinary tract symptoms; E07.9 Disorder of thyroid, unspecified; F32.9 Major depressive disorder, single episode, unspecified; Z85.830 Personal history of malignant neoplasm of bone; Z79.899 Other long term (current) drug therapy; Z79.82 Long term (current) use of aspirin; Z90.49 Acquired absence of other specified parts of digestive tract; Z95.5 Presence of coronary angioplasty implant and graft
CPT/HCPCS: 36415; 74018; 80053; 81001; 82150; 83690; 85025; 96360; 96361; 99285

== ENCOUNTER 2018-09-03 09:17 | Emergency (ER) | payer MEDICARE, OTHER ==
[2018-09-03 09:26] VITALS: RESP 18
--- NOTE | 2018-09-03 10:20 | ED ---
Abdominal Pain HPI - General Chief Complaint: Abdominal Pain Stated Complaint: HALINA Time Seen by Provider: 09/03/18 09:38 Source: patient, EMS, RN notes reviewed Mode of arrival: EMS Limitations: no limitations - History of Present Illness Initial Comments: This a 72-year-old male presents emergency department to complaint of constipation. Patient states he was seen here 2 days ago did have a Therevac large bowel movement. Patient states he has not gone since he left. Patient states he took one dose of his Colace. He has not taken anything else at this time for his constipation. Patient denies any fever or chills nausea vomiting. He states he just feels bloated. Patient had prior appendectomy and hernia surgery. Patient denies any dysuria, hematuria, nausea vomiting. Patient also complains of left first toe pain. Patient states he stubbed it and believes he may have injured it. - Related Data Home Medications Medication Instructions Recorded Confirmed Dicyclomine HCl 20 mg PO DAILY 05/24/14 09/03/18 Levothyroxine Sodium [Synthroid] 100 mcg PO DAILY 05/24/14 09/03/18 Omeprazole 40 mg PO DAILY 05/24/14 09/03/18 Nortriptyline [Pamelor] 25 mg PO HS 02/23/15 09/03/18 Metoprolol Succinate (ER) [Toprol 100 mg PO DAILY 10/11/16 09/03/18 XL] Tamsulosin [Flomax] 0.4 mg PO DAILY 10/11/16 09/03/18 amLODIPine [Norvasc] 5 mg PO DAILY 10/11/16 09/03/18 Aspirin EC [Ecotrin Low Dose] 81 mg PO DAILY 12/26/16 09/03/18 Gabapentin [Neurontin] 100 mg PO HS 01/26/18 09/03/18 clonazePAM [KlonoPIN] 0.5 mg PO DAILY PRN 01/26/18 09/03/18 Loperamide [Imodium] 2 mg PO DAILY PRN 04/13/18 09/03/18 Previous Rx's Medication Instructions Recorded Atorvastatin [Lipitor] 80 mg PO HS #30 tab 07/31/18 Isosorbide Mononitrate ER [Imdur] 30 mg PO DAILY #30 tab.er.24h 07/31/18 Nitroglycerin Sl Tabs [Nitrostat] 0.4 mg SUBLINGUAL Q5M PRN #25 tab 07/31/18 Ticagrelor [Brilinta] 90 mg PO BID #60 tab 07/31/18 metFORMIN HCL 1,000 mg PO DAILY #0 07/31/18 Docusate [Colace] 100 mg PO DAILY #20 capsule 09/01/18 Allergies Allergy/AdvReac Type Severity Reaction Status Date / Time No Known Allergies Allergy Verified 09/03/18 09:55 Review of Systems ROS Statement: Those systems with pertinent positive or pertinent negative responses have been documented in the HPI. ROS Other: All systems not noted in ROS Statement are negative. 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 [facility], chronic intermittedt R lower abdominal pain with etiology unknown, NIDDM type II , BPH, rectal bleed, diverticulosis, kidney stones, pt denies any kidney disease other than stones."CHIPPED DISC" d/t faLL IN NOVEMBER Last Myocardial Infarction Date:: 2017(non q wave) History of Any Multi-Drug Resistant Organisms: None Reported Past Surgical History: Adenoidectomy, Appendectomy, Cholecystectomy, Heart Catheterization With Stent, Hernia Repair, Orthopedic Surgery, Tonsillectomy Additional Past Surgical History / Comment(s): Bilateral carpal tunnel, bone spur removals to bilateral heels and FEET," 8 cardiac STENTS", B/L KNEE BONE SPURS, CATARACTS JA with lens implants, JA INGUINAL HERNIA REPAIR AND UMBILLICAL. removal of malignant tumor from back,EGD 06-04-17, RT LEG SX FOR TORN LIGAMENT."WAS BORN W/ OVERSIZED LIVER HAD SX TO REDUCE IT'S SIZE" Past Anesthesia/Blood Transfusion Reactions: No Reported Reaction Additional Past Anesthesia/Blood Transfusion Reaction / Comment(s): Pt states he has received blood in the past without reaction. Date of Last Stent Placement:: 2017 Past Psychological History: Depression Smoking Status: Never smoker Past Alcohol Use History: None Reported Past Drug Use History: None Reported - Past Family History Father Family Medical History: Myocardial Infarction (ME) Additional Family Medical History / Comment(s): PTBA Mother Family Medical History: CVA/TIA, Diabetes Mellitus Additional Family Medical History / Comment(s): Mother of a CVA at the age of 82 yrs. Brother(s) Family Medical History: Cancer Additional Family Medical History / Comment(s): 2 brothers have MS General Exam Limitations: no limitations General appearance: alert, in no apparent distress Respiratory exam: Present: normal lung sounds bilaterally. Absent: respiratory distress, wheezes, rales, rhonchi, stridor Cardiovascular Exam: Present: regular rate, normal rhythm, normal heart sounds. Absent: systolic murmur, diastolic murmur, rubs, gallop, clicks GI/Abdominal exam: Present: soft, tenderness (Minimal diffuse), normal bowel sounds. Absent: distended, guarding, rebound, rigid Extremities exam: Present: other (tender tenderness to left foot first digit no erythema and no ecchymosis noted for range of motion neurovascular intact there is onychomycosis noted) Back exam: Absent: CVA tenderness (R), CVA tenderness (L) Skin exam: Present: warm, dry, intact, normal color. Absent: rash Course Vital Signs 09/03/18 09:23 Temperature 97.7 F Pulse Rate 79 Respiratory 18 Rate Blood Pressure 135/74 O2 Sat by Pulse 99 Oximetry Medical Decision Making - Medical Decision Making 72-year-old male present emergency from for constipation. This is a second visit for. He has only taken one dose of Colace. Patient does have fecal stasis on x-ray no obstruction. Patient's abdomen is soft. Vitals are stable. Patient will be discharged with magnesium citrate. I did advise that he needs to increase her fluid intake, be consistent with his dietary intake and follow-up with PCP. Disposition Clinical Impression: Constipation Disposition: HOME SELF-CARE Condition: Stable Instructions: Constipation (ED) Additional Instructions: Please return to the Emergency Department if symptoms worsen or any other concerns. Is patient prescribed a controlled substance at d/c from ED?: No Referrals: Micheal Adamson MD [Primary Care Provider] - 1-2 days Time of Disposition: 10:59
--- NOTE | 2018-09-03 10:47 | XR ---
Abdomen HISTORY: Constipation and pain Frontal view of the abdomen on 2 images correlated to prior exam 09/01/2018 Degenerative disc changes are present in the visualized spine. There are vascular calcifications note d incidentally. Surgical clips present in the right upper quadrant. Lung bases are clear. No evident pneumoperitoneum or bowel obstruction. Retained fecal debris present throughout the distribution of m uch of the colon. IMPRESSION: Correlate for fecal stasis.
--- NOTE | 2018-09-03 10:48 | XR ---
Left foot HISTORY: Heel infection 3 views of the left foot Bone mineralization is maintained. Mild hallux valgus deformity suspected. Vascular calcifications ar e present. No fracture or dislocation. There is a plantar calcaneal spur. Calcification present along the major aponeurosis. Degenerative changes are present at the intertarsal joints, first metatarsoph alangeal joint. No periostitis to suggest osteomyelitis. IMPRESSION: Osteoarthritis, peripheral vascular occlusive disease. Plantar calcaneal spur.
[2018-09-03] MEDS ORDERED: MAGNESIUM CITRATE 296 ML BOTTLE PO ONE (10:57)
[2018-09-03 11:23] VITALS: BP 146/86; PULSE 88; TEMP 98
== END 2018-09-03 11:22 | disposition home or self-care (01) ==
LOC: EC 09:17
DX: K59.00 Constipation, unspecified (principal); M79.675 Pain in left toe(s); I25.10 Atherosclerotic heart disease of native coronary artery without angina pectoris; K21.9 Gastro-esophageal reflux disease without esophagitis; I10 Essential (primary) hypertension; I25.2 Old myocardial infarction; E07.9 Disorder of thyroid, unspecified; F32.9 Major depressive disorder, single episode, unspecified; N40.0 Benign prostatic hyperplasia without lower urinary tract symptoms; Z87.19 Personal history of other diseases of the digestive system; Z85.830 Personal history of malignant neoplasm of bone; Z90.49 Acquired absence of other specified parts of digestive tract; Z92.21 Personal history of antineoplastic chemotherapy; Z94.81 Bone marrow transplant status; Z95.5 Presence of coronary angioplasty implant and graft; Z98.890 Other specified postprocedural states; Z79.82 Long term (current) use of aspirin; Z79.899 Other long term (current) drug therapy
CPT/HCPCS: 74018; 99284

== ENCOUNTER 2018-10-18 08:15 | Emergency (ER) | payer MEDICARE, OTHER ==
[2018-10-18 08:23] VITALS: BP 138/76; PULSE 96; RESP 18; TEMP 97.8
--- NOTE | 2018-10-18 08:33 | ED ---
Skin/Abscess/FB HPI - General Chief complaint: Skin/Abscess/Foreign Body Stated complaint: abscess on hand Time Seen by Provider: 10/18/18 08:24 Source: patient, RN notes reviewed Mode of arrival: ambulatory Limitations: no limitations - History of Present Illness Initial comments: 72-year-old male presents emergency Department chief complaint of infection to his left hand. Patient states that he has what he thinks is an abscess. Patient reports mild discomfort. Patient states there is a white bump with pus. Patient reports no fever no chills. Patient states he was recently discharged from [facility]. Patient states that this just deformed overnight time. Patient denies any streaking redness denies any pain with movement of his digits. Patient offers no other complaints. - Related Data Home Medications Medication Instructions Recorded Confirmed Dicyclomine HCl 20 mg PO DAILY 05/24/14 09/03/18 Levothyroxine Sodium [Synthroid] 100 mcg PO DAILY 05/24/14 09/03/18 Omeprazole 40 mg PO DAILY 05/24/14 09/03/18 Nortriptyline [Pamelor] 25 mg PO HS 02/23/15 09/03/18 Metoprolol Succinate (ER) [Toprol 100 mg PO DAILY 10/11/16 09/03/18 XL] Tamsulosin [Flomax] 0.4 mg PO DAILY 10/11/16 09/03/18 amLODIPine [Norvasc] 5 mg PO DAILY 10/11/16 09/03/18 Aspirin EC [Ecotrin Low Dose] 81 mg PO DAILY 12/26/16 09/03/18 Gabapentin [Neurontin] 100 mg PO HS 01/26/18 09/03/18 clonazePAM [KlonoPIN] 0.5 mg PO DAILY PRN 01/26/18 09/03/18 Loperamide [Imodium] 2 mg PO DAILY PRN 04/13/18 09/03/18 Previous Rx's Medication Instructions Recorded Atorvastatin [Lipitor] 80 mg PO HS #30 tab 07/31/18 Isosorbide Mononitrate ER [Imdur] 30 mg PO DAILY #30 tab.er.24h 07/31/18 Nitroglycerin Sl Tabs [Nitrostat] 0.4 mg SUBLINGUAL Q5M PRN #25 tab 07/31/18 Ticagrelor [Brilinta] 90 mg PO BID #60 tab 07/31/18 metFORMIN HCL 1,000 mg PO DAILY #0 07/31/18 Docusate [Colace] 100 mg PO DAILY #20 capsule 09/01/18 Sulfamethox-Tmp 800-160Mg [Bactrim 1 each PO Q12HR #20 tab 10/18/18 Ds] Allergies Allergy/AdvReac Type Severity Reaction Status Date / Time No Known Allergies Allergy Verified 10/18/18 08:23 Review of Systems ROS Statement: Those systems with pertinent positive or pertinent negative responses have been documented in the HPI. ROS Other: All systems not noted in ROS Statement are negative. 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 [facility], chronic intermittedt R lower abdominal pain with etiology unknown, NIDDM type II , BPH, rectal bleed, diverticulosis, kidney stones, pt denies any kidney disease other than stones."CHIPPED DISC" d/t faLL IN NOVEMBER Last Myocardial Infarction Date:: 2017(non q wave) History of Any Multi-Drug Resistant Organisms: None Reported Past Surgical History: Adenoidectomy, Appendectomy, Cholecystectomy, Heart Catheterization With Stent, Hernia Repair, Orthopedic Surgery, Tonsillectomy Additional Past Surgical History / Comment(s): Bilateral carpal tunnel, bone spur removals to bilateral heels and FEET," 8 cardiac STENTS", B/L KNEE BONE SPURS, CATARACTS JA with lens implants, JA INGUINAL HERNIA REPAIR AND UMBILLICAL. removal of malignant tumor from back,EGD 06-04-17, RT LEG SX FOR TORN LIGAMENT."WAS BORN W/ OVERSIZED LIVER HAD SX TO REDUCE IT'S SIZE" Past Anesthesia/Blood Transfusion Reactions: No Reported Reaction Additional Past Anesthesia/Blood Transfusion Reaction / Comment(s): Pt states he has received blood in the past without reaction. Date of Last Stent Placement:: 2017 Past Psychological History: Depression Smoking Status: Never smoker Past Alcohol Use History: None Reported Past Drug Use History: None Reported - Past Family History Father Family Medical History: Myocardial Infarction (DC) Additional Family Medical History / Comment(s): PTBA Mother Family Medical History: CVA/TIA, Diabetes Mellitus Additional Family Medical History / Comment(s): Mother of a CVA at the age of 82 yrs. Brother(s) Family Medical History: Cancer Additional Family Medical History / Comment(s): 2 brothers have MS General Exam Limitations: no limitations General appearance: alert, in no apparent distress Head exam: Present: atraumatic, normocephalic, normal inspection Eye exam: Present: normal appearance, PERRL, EOMI. Absent: scleral icterus, conjunctival injection, periorbital swelling Respiratory exam: Present: normal lung sounds bilaterally. Absent: respiratory distress, wheezes, rales, rhonchi, stridor Cardiovascular Exam: Present: regular rate, normal rhythm, normal heart sounds. Absent: systolic murmur, diastolic murmur, rubs, gallop, clicks Skin exam: Present: warm, dry, intact, normal color, other (Left hand there is mild erythema, 3 mm pustule noted patient has no streaking erythema pulses equal bilaterally patient has full range of motion neurovascular intact) Course Vital Signs 10/18/18 08:22 Temperature 97.8 F Pulse Rate 96 Respiratory 18 Rate Blood Pressure 138/76 O2 Sat by Pulse 96 Oximetry Procedures - Incision & Drainage Consent Obtained: verbal consent Indication: Left hand abscess Site: hand (Left) Size (cm): 0 (0.3) Needle Aspiration Performed?: Yes Irrigation Performed?: No I&D Drainage Obtained: Pus Culture Obtained?: Yes Patient Tolerated Procedure: well, no complications Medical Decision Making - Medical Decision Making 72-year-old male presented emergency from for left hand infection. Patient did have noted pustule which was open with an 18-gauge needle. Patient wound culture obtained. Patient we discharged on Bactrim, warm compresses and wound care was instructed. Return parameters were given Disposition Clinical Impression: Abscess of left hand Disposition: HOME SELF-CARE Condition: Stable Instructions: Abscess (ED) Additional Instructions: Please return to the Emergency Department if symptoms worsen or any other concerns. Prescriptions: Sulfamethox-Tmp 800-160Mg [Bactrim Ds] 1 each PO Q12HR #20 tab Is patient prescribed a controlled substance at d/c from ED?: No Referrals: Micheal Adamson MD [Primary Care Provider] - 1-2 days Time of Disposition: 08:33
== END 2018-10-18 08:40 | disposition home or self-care (01) ==
LOC: EC 08:15
DX: L02.512 Cutaneous abscess of left hand (principal); I11.9 Hypertensive heart disease without heart failure; I25.119 Atherosclerotic heart disease of native coronary artery with unspecified angina pectoris; I25.2 Old myocardial infarction; K21.9 Gastro-esophageal reflux disease without esophagitis; N40.0 Benign prostatic hyperplasia without lower urinary tract symptoms; M19.90 Unspecified osteoarthritis, unspecified site; F32.9 Major depressive disorder, single episode, unspecified; E07.9 Disorder of thyroid, unspecified; Z79.82 Long term (current) use of aspirin; Z79.899 Other long term (current) drug therapy; Z85.830 Personal history of malignant neoplasm of bone; Z90.49 Acquired absence of other specified parts of digestive tract; Z98.890 Other specified postprocedural states; Z95.5 Presence of coronary angioplasty implant and graft
CPT/HCPCS: 10160; 30901; 87070; 87077; 87186; 87205; 99283

== ENCOUNTER 2018-10-18 10:33 | Emergency (ER) | payer MEDICARE, OTHER ==
[2018-10-18 10:55] VITALS: RESP 18
[2018-10-18] MEDS ORDERED: LIDOCAINE/EPINEPHR/TETRACAINE 5 ML BOTTLE TOPICAL ONE (11:06)
--- NOTE | 2018-10-18 11:20 | ED ---
General Adult HPI - General Source: patient, RN notes reviewed Mode of arrival: ambulatory Limitations: no limitations <Ascencion Weeks - Last Filed: 10/18/18 12:39> <Josué Lepe - Last Filed: 10/18/18 19:09> - General Chief complaint: ENT Stated complaint: bloody nose Time Seen by Provider: 10/18/18 10:57 - History of Present Illness Initial comments: Patient 72-year-old male presenting to the emergency room today with chief complaint of epistaxis. He does admit that he was seen here this morning for an abscess to his hand. He states that he was walking out to the waiting room and his nose began to bleed. He does admit to some bleeding coming from the right nostril. Patient currently has a nasal clamp on and states bleeding has stopped. He is not feeling plugged onto the posterior pharynx. Patient does admit that he is on a blood thinner and is unsure the name. He denies any other complaints or symptoms. Patient denies any recent fever, chills, shortness of breath, chest pain, back pain, abdominal pain, nausea or vomiting, numbness or tingling, headaches or visual changes, or any other complaints. ( Ascencion Weeks) - Related Data Home Medications Medication Instructions Recorded Confirmed Dicyclomine HCl 20 mg PO DAILY 05/24/14 10/18/18 Levothyroxine Sodium [Synthroid] 100 mcg PO DAILY 05/24/14 10/18/18 Omeprazole 40 mg PO DAILY 05/24/14 10/18/18 Nortriptyline [Pamelor] 25 mg PO HS 02/23/15 10/18/18 Metoprolol Succinate (ER) [Toprol 100 mg PO DAILY 10/11/16 10/18/18 XL] Tamsulosin [Flomax] 0.4 mg PO DAILY 10/11/16 10/18/18 amLODIPine [Norvasc] 5 mg PO DAILY 10/11/16 10/18/18 Aspirin EC [Ecotrin Low Dose] 81 mg PO DAILY 12/26/16 10/18/18 Gabapentin [Neurontin] 100 mg PO HS 01/26/18 10/18/18 clonazePAM [KlonoPIN] 0.5 mg PO DAILY PRN 01/26/18 10/18/18 Loperamide [Imodium] 2 mg PO DAILY PRN 04/13/18 10/18/18 Sulfamethox-Tmp 800-160Mg [Bactrim 1 tab PO Q12HR 10/18/18 10/18/18 Ds] Previous Rx's Medication Instructions Recorded Atorvastatin [Lipitor] 80 mg PO HS #30 tab 07/31/18 Isosorbide Mononitrate ER [Imdur] 30 mg PO DAILY #30 tab.er.24h 07/31/18 Nitroglycerin Sl Tabs [Nitrostat] 0.4 mg SUBLINGUAL Q5M PRN #25 tab 07/31/18 Ticagrelor [Brilinta] 90 mg PO BID #60 tab 07/31/18 metFORMIN HCL 1,000 mg PO DAILY #0 07/31/18 Docusate [Colace] 100 mg PO DAILY #20 capsule 09/01/18 Allergies Allergy/AdvReac Type Severity Reaction Status Date / Time No Known Allergies Allergy Verified 10/18/18 15:10 Review of Systems ROS Other: All systems not noted in ROS Statement are negative. <Ascencion Weeks - Last Filed: 10/18/18 12:39> ROS Other: All systems not noted in ROS Statement are negative. <Josué Lepe - Last Filed: 10/18/18 19:09> ROS Statement: Those systems with pertinent positive or pertinent negative responses have been documented in the HPI. 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 [facility], chronic intermittedt R lower abdominal pain with etiology unknown, NIDDM type II , BPH, rectal bleed, diverticulosis, kidney stones, pt denies any kidney disease other than stones."CHIPPED DISC" d/t faLL IN NOVEMBER Last Myocardial Infarction Date:: 2017(non q wave) History of Any Multi-Drug Resistant Organisms: None Reported Past Surgical History: Adenoidectomy, Appendectomy, Cholecystectomy, Heart Catheterization With Stent, Hernia Repair, Orthopedic Surgery, Tonsillectomy Additional Past Surgical History / Comment(s): Bilateral carpal tunnel, bone spur removals to bilateral heels and FEET," 8 cardiac STENTS", B/L KNEE BONE SPURS, CATARACTS JA with lens implants, JA INGUINAL HERNIA REPAIR AND UMBILLICAL. removal of malignant tumor from back,EGD 06-04-17, RT LEG SX FOR TORN LIGAMENT."WAS BORN W/ OVERSIZED LIVER HAD SX TO REDUCE IT'S SIZE" Past Anesthesia/Blood Transfusion Reactions: No Reported Reaction Additional Past Anesthesia/Blood Transfusion Reaction / Comment(s): Pt states he has received blood in the past without reaction. Date of Last Stent Placement:: 2017 Past Psychological History: Depression Smoking Status: Never smoker Past Alcohol Use History: None Reported Past Drug Use History: None Reported - Past Family History Father Family Medical History: Myocardial Infarction (AL) Additional Family Medical History / Comment(s): PTBA Mother Family Medical History: CVA/TIA, Diabetes Mellitus Additional Family Medical History / Comment(s): Mother of a CVA at the age of 82 yrs. Brother(s) Family Medical History: Cancer Additional Family Medical History / Comment(s): 2 brothers have MS <Ascencion Weeks - Last Filed: 10/18/18 12:39> General Exam Limitations: no limitations <Ascencion Weeks - Last Filed: 10/18/18 12:39> <Josué Lepe - Last Filed: 10/18/18 19:09> - General Exam Comments Initial Comments: General: The patient is awake and alert, in no distress, and does not appear acutely ill. Eye: There is normal conjunctiva bilaterally. No signs of icterus. Ears, nose, mouth and throat: There are moist mucous membranes and no oral lesions. Posterior pharynx clear. Neck: The neck is supple, there is no tenderness or JVD. Cardiovascular: There is a regular rate and rhythm. No murmur, rub or gallop is appreciated. Respiratory: Lungs are clear to auscultation, respirations are non-labored, breath sounds are equal. No wheezes, stridor, rales, or rhonchi. Musculoskeletal: Normal ROM, no tenderness. Strength 5/5. Sensation intact. Radial Pulses equal bilaterally 2+. Neurological: A&O x 3. CN II-XII intact, There are no obvious motor or sensory deficits. Coordination appears grossly intact. Speech is normal. Skin: Skin is warm and dry and no rashes or lesions are noted. Psychiatric: Cooperative, appropriate mood & affect, normal judgment. (Ascencion Weeks) Course <Ascencion Weeks - Last Filed: 10/18/18 12:39> <Josué Lepe - Last Filed: 10/18/18 19:09> Vital Signs 10/18/18 10/18/18 10:54 12:48 Temperature 97.9 F 97 F L Pulse Rate 89 99 Respiratory 18 18 Rate Blood Pressure 142/72 154/70 O2 Sat by Pulse 98 100 Oximetry - Reevaluation(s) Reevaluation #1: 10/18/18 19:08 PA supervision: I received did an evaluation this patient/case they do agree with the assessment and plan. Patient did have evidence of epistaxis. Patient will be discharged with follow-up as indicated. (Josué Lepe) Medical Decision Making <Ascencion Weeks - Last Filed: 10/18/18 12:39> <Josué Lepe - Last Filed: 10/18/18 19:09> - Medical Decision Making Patient reexamined at this time shows no signs of distress. Patient did have a lidocaine, epinephrine, tetracaine we should place a cotton ball and placed into the right nostril. This was left in for approximately 20 minutes. Was taken out. Patient has been observed for another 20 minutes his had no repeat bleeding. Patient at this time is feeling comfortable with going to be discharged home. He is advised follow-up with ENT. Advised to return to emergency room if symptoms recur. He states understanding and is in agreement. (Ascencion Weeks) Disposition Is patient prescribed a controlled substance at d/c from ED?: No Time of Disposition: 12:40 <Ascencion Weeks - Last Filed: 10/18/18 12:39> <Josué Lepe - Last Filed: 10/18/18 19:09> Clinical Impression: Epistaxis Disposition: HOME SELF-CARE Condition: Good Instructions: Nosebleed (ED) Additional Instructions: Please use nasal clamp if bleeding recurs. Please leave in place for 20 minutes. If bleeding persists return here to the emergency room. Please follow -up with ENT over the next 2 days as discussed return for any other concerns. Referrals: Micheal Adamson MD [Primary Care Provider] - 1-2 days Obermyer,Curtis, MD [STAFF PHYSICIAN] - 1-2 days
[2018-10-18 12:51] VITALS: BP 154/70; PULSE 99; TEMP 97
== END 2018-10-18 12:48 | disposition home or self-care (01) ==
LOC: EC 10:33
DX: R04.0 Epistaxis (principal); I25.119 Atherosclerotic heart disease of native coronary artery with unspecified angina pectoris; E11.9 Type 2 diabetes mellitus without complications; K21.9 Gastro-esophageal reflux disease without esophagitis; I10 Essential (primary) hypertension; I25.2 Old myocardial infarction; M19.90 Unspecified osteoarthritis, unspecified site; N40.0 Benign prostatic hyperplasia without lower urinary tract symptoms; E07.9 Disorder of thyroid, unspecified; F32.9 Major depressive disorder, single episode, unspecified; Z85.830 Personal history of malignant neoplasm of bone; Z85.828 Personal history of other malignant neoplasm of skin; Z79.82 Long term (current) use of aspirin; Z79.899 Other long term (current) drug therapy; Z95.5 Presence of coronary angioplasty implant and graft; Z94.81 Bone marrow transplant status
CPT/HCPCS: 99283

== ENCOUNTER 2018-10-18 15:02 | Emergency (ER) | payer MEDICARE, OTHER ==
[2018-10-18 15:10] VITALS: BP 138/66; RESP 18
[2018-10-18] MEDS ORDERED: LIDOCAINE/EPINEPHR/TETRACAINE 5 ML BOTTLE TOPICAL ONE (15:17)
[2018-10-18] MEDS ORDERED: OXYMETAZOLINE 0.05% NASL SPRAY 1 SPRAY BOTTLE NASAL STA (15:27)
--- NOTE | 2018-10-18 15:31 | ED ---
General Adult HPI - General Chief complaint: ENT Stated complaint: NOSE BLEED Time Seen by Provider: 10/18/18 15:13 Source: patient, EMS, RN notes reviewed Mode of arrival: EMS Limitations: no limitations - History of Present Illness Initial comments: Patient 72-year-old male presenting to the emergency room today with a chief complaint of epistaxis. Patient does admit that he was seen here in the emergency room earlier for same complaint. States that he left the ER and was eating breakfast at a restaurant when his nose began bleeding again. States he did use the nasal clamp. States seems to be stopped at this time. Patient denies any other complaints or symptoms currently. Patient denies any recent fever, chills, shortness of breath, chest pain, back pain, abdominal pain, nausea or vomiting, headaches or visual changes, or any other complaints. - Related Data Home Medications Medication Instructions Recorded Confirmed Dicyclomine HCl 20 mg PO DAILY 05/24/14 10/18/18 Levothyroxine Sodium [Synthroid] 100 mcg PO DAILY 05/24/14 10/18/18 Omeprazole 40 mg PO DAILY 05/24/14 10/18/18 Nortriptyline [Pamelor] 25 mg PO HS 02/23/15 10/18/18 Metoprolol Succinate (ER) [Toprol 100 mg PO DAILY 10/11/16 10/18/18 XL] Tamsulosin [Flomax] 0.4 mg PO DAILY 10/11/16 10/18/18 amLODIPine [Norvasc] 5 mg PO DAILY 10/11/16 10/18/18 Aspirin EC [Ecotrin Low Dose] 81 mg PO DAILY 12/26/16 10/18/18 Gabapentin [Neurontin] 100 mg PO HS 01/26/18 10/18/18 clonazePAM [KlonoPIN] 0.5 mg PO DAILY PRN 01/26/18 10/18/18 Loperamide [Imodium] 2 mg PO DAILY PRN 04/13/18 10/18/18 Sulfamethox-Tmp 800-160Mg [Bactrim 1 tab PO Q12HR 10/18/18 10/18/18 Ds] Previous Rx's Medication Instructions Recorded Atorvastatin [Lipitor] 80 mg PO HS #30 tab 07/31/18 Isosorbide Mononitrate ER [Imdur] 30 mg PO DAILY #30 tab.er.24h 07/31/18 Nitroglycerin Sl Tabs [Nitrostat] 0.4 mg SUBLINGUAL Q5M PRN #25 tab 07/31/18 Ticagrelor [Brilinta] 90 mg PO BID #60 tab 07/31/18 metFORMIN HCL 1,000 mg PO DAILY #0 07/31/18 Docusate [Colace] 100 mg PO DAILY #20 capsule 09/01/18 Allergies Allergy/AdvReac Type Severity Reaction Status Date / Time No Known Allergies Allergy Verified 10/18/18 15:10 Review of Systems ROS Statement: Those systems with pertinent positive or pertinent negative responses have been documented in the HPI. ROS Other: All systems not noted in ROS Statement are negative. 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 [facility], chronic intermittedt R lower abdominal pain with etiology unknown, NIDDM type II , BPH, rectal bleed, diverticulosis, kidney stones, pt denies any kidney disease other than stones."CHIPPED DISC" d/t faLL IN NOVEMBER Last Myocardial Infarction Date:: 2017(non q wave) History of Any Multi-Drug Resistant Organisms: None Reported Past Surgical History: Adenoidectomy, Appendectomy, Cholecystectomy, Heart Catheterization With Stent, Hernia Repair, Orthopedic Surgery, Tonsillectomy Additional Past Surgical History / Comment(s): Bilateral carpal tunnel, bone spur removals to bilateral heels and FEET," 8 cardiac STENTS", B/L KNEE BONE SPURS, CATARACTS JA with lens implants, JA INGUINAL HERNIA REPAIR AND UMBILLICAL. removal of malignant tumor from back,EGD 06-04-17, RT LEG SX FOR TORN LIGAMENT."WAS BORN W/ OVERSIZED LIVER HAD SX TO REDUCE IT'S SIZE" Past Anesthesia/Blood Transfusion Reactions: No Reported Reaction Additional Past Anesthesia/Blood Transfusion Reaction / Comment(s): Pt states he has received blood in the past without reaction. Date of Last Stent Placement:: 2017 Past Psychological History: Depression Smoking Status: Never smoker Past Alcohol Use History: None Reported Past Drug Use History: None Reported - Past Family History Father Family Medical History: Myocardial Infarction (MS) Additional Family Medical History / Comment(s): PTBA Mother Family Medical History: CVA/TIA, Diabetes Mellitus Additional Family Medical History / Comment(s): Mother of a CVA at the age of 82 yrs. Brother(s) Family Medical History: Cancer Additional Family Medical History / Comment(s): 2 brothers have MS General Exam - General Exam Comments Initial Comments: General: The patient is awake and alert, in no distress, and does not appear acutely ill. Ears, nose, mouth and throat: There are moist mucous membranes and no oral lesions. Posterior pharynx clear. No active bleeding but dried blood in the right nostril. Cardiovascular: There is a regular rate and rhythm. No murmur, rub or gallop is appreciated. Respiratory: Lungs are clear to auscultation, respirations are non-labored, breath sounds are equal. No wheezes, stridor, rales, or rhonchi. Musculoskeletal: Normal ROM, no tenderness. Strength 5/5. Sensation intact. Pulses equal bilaterally 2+. Neurological: A&O x 3. CN II-XII intact, There are no obvious motor or sensory deficits. Coordination appears grossly intact. Speech is normal. Skin: Skin is warm and dry and no rashes or lesions are noted. Psychiatric: Cooperative, appropriate mood & affect, normal judgment. Limitations: no limitations Course Vital Signs 10/18/18 15:07 Temperature 100.2 F H Pulse Rate 81 Respiratory 18 Rate Blood Pressure 138/66 O2 Sat by Pulse 97 Oximetry Procedures - Procedures Initial comment: Patient did have a lidocaine, epinephrine, tetracaine mixture placed on a cotton ball in place to the right nostril. This was left in there for approximately 20 minutes. It was removed there is no active bleeding. A Murocel packing was placed and Afrin used to expand the packing. Patient tolerated procedure well. Medical Decision Making - Medical Decision Making Patient presented to the emergency room for epistaxis. His second visit for this complaint today. Was discussed with the patient about the possibility of packing. Patient was in agreement. Merocel packing gauze were placed. Patient is advised follow-up the next 2 days return if any symptoms increase or worsen. Patient was placed on Bactrim from an earlier visit due to an abscess. Disposition Clinical Impression: Epistaxis Disposition: HOME SELF-CARE Condition: Good Instructions: Nosebleed (ED) Additional Instructions: Please follow-up ENT over the next 2 days to have packing removed. Please return here to emergency room if any symptoms increase or worsen or for any other concerns. Is patient prescribed a controlled substance at d/c from ED?: No Referrals: Micheal Adamson MD [Primary Care Provider] - 1-2 days Curtis Cahuhan MD [STAFF PHYSICIAN] - 1-2 days Time of Disposition: 16:01
[2018-10-18 16:11] VITALS: PULSE 84; TEMP 98.4
== END 2018-10-18 16:09 | disposition home or self-care (01) ==
LOC: EC 15:02
DX: R04.0 Epistaxis (principal); I25.119 Atherosclerotic heart disease of native coronary artery with unspecified angina pectoris; E11.9 Type 2 diabetes mellitus without complications; K21.9 Gastro-esophageal reflux disease without esophagitis; I10 Essential (primary) hypertension; I25.2 Old myocardial infarction; M19.90 Unspecified osteoarthritis, unspecified site; N40.0 Benign prostatic hyperplasia without lower urinary tract symptoms; E07.9 Disorder of thyroid, unspecified; F32.9 Major depressive disorder, single episode, unspecified; Z85.830 Personal history of malignant neoplasm of bone; Z85.828 Personal history of other malignant neoplasm of skin; Z79.82 Long term (current) use of aspirin; Z79.899 Other long term (current) drug therapy; Z95.5 Presence of coronary angioplasty implant and graft; Z94.81 Bone marrow transplant status
CPT/HCPCS: 30901; 99283

== ENCOUNTER → 2018-11-19 | Outpatient (CLI) | payer MEDICARE | END | disposition home or self-care (01) | LOC: LABWHC1 12:27 | PROVIDERS: ATTEND Internal Medicine Hematology & Oncology | DX: Z53.9 Procedure and treatment not carried out, unspecified reason (principal) ==

== ENCOUNTER 2018-12-05 14:04 | Inpatient (IN) | payer MEDICARE, OTHER ==
[2018-12-05] MEDS ORDERED: ASPIRIN 81 MG PO STA (14:23)
[2018-12-05] MEDS ORDERED: SODIUM CHLORIDE 0.9% 500 ML 500 ML IV STA (14:23)
[2018-12-05] MEDS ORDERED: NITROGLYCERIN SL TABS 0.4 MG TAB SUBLINGUAL STA ×3 (14:23→16:32)
--- NOTE | 2018-12-05 14:29 | ED ---
General Adult HPI - General Stated complaint: CHEST AND SIDE PAIN FOLLOWING BLOOD TRANSFUSION Time Seen by Provider: 12/05/18 14:18 Source: patient, family, RN/MD, RN notes reviewed, old records reviewed Mode of arrival: wheelchair Limitations: physical limitation - History of Present Illness Initial comments: 73-year-old male patient passed history of leukemia, anemia, coronary artery disease, diabetes presents to ED with approximately 5 months of chest pain. Patient was at [facility] receiving a transfusion secondary to anemia and he started to develop chest pain underneath his left breast. Patient describes pain as a pressure sensation. Patient states that he also has some shortness of breath also developed acutely. Patient was nearing completion of transfusion when the symptoms began and he was transported down to ED for further evaluation. Patient denies other complaints. On repeat history taking patient also complained of some generalized abdominal pain. Systemic: Pt denies fatigue, myalgia, fever/chills, rash. Pt denies weakness, night sweats, weight loss. Neuro: Pt denies headache, visual disturbances, syncope or pre-syncope. HEENT: Pt denies ocular discharge or irritation, otalgia, rhinorrhea, pharyngitis or notable lymphadenopathy. Abdominal/GI: Pt denies n/v/d. : Pt denies dysuria, burning w/ urination, frequency/urgency. Denies new onset urinary or bowel incontinence. MSK: Pt denies myalgia, loss of strength or function in extremities. Neuro: Pt denies new onset weakness, paresthesias. - Related Data Home Medications Medication Instructions Recorded Confirmed Dicyclomine HCl 20 mg PO DAILY 05/24/14 12/05/18 Levothyroxine Sodium [Synthroid] 100 mcg PO DAILY 05/24/14 12/05/18 Omeprazole 40 mg PO DAILY 05/24/14 12/05/18 Nortriptyline [Pamelor] 25 mg PO HS 02/23/15 12/05/18 Tamsulosin [Flomax] 0.4 mg PO DAILY 10/11/16 12/05/18 amLODIPine [Norvasc] 5 mg PO DAILY 10/11/16 12/05/18 Aspirin EC [Ecotrin Low Dose] 81 mg PO DAILY 12/26/16 12/05/18 Gabapentin [Neurontin] 100 mg PO HS 01/26/18 12/05/18 clonazePAM [KlonoPIN] 0.5 mg PO DAILY PRN 01/26/18 12/05/18 Loperamide [Imodium] 2 mg PO DAILY PRN 04/13/18 12/05/18 Metoprolol Succinate [Toprol Xl] 100 mg PO DAILY 11/26/18 12/05/18 Acyclovir [Zovirax] 400 mg PO BID 12/05/18 12/05/18 Ciprofloxacin HCl [Cipro] 500 mg PO DAILY 12/05/18 12/05/18 Dicyclomine [Bentyl] 20 mg PO QID 12/05/18 12/05/18 Fluconazole [Diflucan] 100 mg PO DAILY 12/05/18 12/05/18 Magnesium Oxide 420 mg PO DAILY 12/05/18 12/05/18 Nortriptyline [Pamelor] 25 mg PO DAILY 12/05/18 12/05/18 Venetoclax [Venclexta Starting 2 each PO DAILY 12/05/18 12/05/18 Pack] Previous Rx's Medication Instructions Recorded Atorvastatin [Lipitor] 80 mg PO HS #30 tab 07/31/18 Isosorbide Mononitrate ER [Imdur] 30 mg PO DAILY #30 tab.er.24h 07/31/18 Nitroglycerin Sl Tabs [Nitrostat] 0.4 mg SUBLINGUAL Q5M PRN #25 tab 07/31/18 Ticagrelor [Brilinta] 90 mg PO BID #60 tab 07/31/18 metFORMIN HCL 1,000 mg PO DAILY #0 07/31/18 Docusate [Colace] 100 mg PO DAILY #20 capsule 09/01/18 Allergies Allergy/AdvReac Type Severity Reaction Status Date / Time No Known Allergies Allergy Verified 12/05/18 10:56 Review of Systems ROS Statement: Those systems with pertinent positive or pertinent negative responses have been documented in the HPI. ROS Other: All systems not noted in ROS Statement are negative. 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 [facility], chronic intermittedt R lower abdominal pain with etiology unknown, NIDDM type II , BPH, rectal bleed, diverticulosis, kidney stones, pt denies any kidney disease other than stones."CHIPPED DISC" d/t faLL IN NOVEMBER Last Myocardial Infarction Date:: 2017(non q wave) History of Any Multi-Drug Resistant Organisms: None Reported Past Surgical History: Adenoidectomy, Appendectomy, Cholecystectomy, Heart Catheterization With Stent, Hernia Repair, Orthopedic Surgery, Tonsillectomy Additional Past Surgical History / Comment(s): Bilateral carpal tunnel, bone spur removals to bilateral heels and FEET," 8 cardiac STENTS", B/L KNEE BONE SPURS, CATARACTS JA with lens implants, JA INGUINAL HERNIA REPAIR AND UMBILLICAL. removal of malignant tumor from back,EGD 06-04-17, RT LEG SX FOR TORN LIGAMENT."WAS BORN W/ OVERSIZED LIVER HAD SX TO REDUCE IT'S SIZE" Past Anesthesia/Blood Transfusion Reactions: No Reported Reaction Additional Past Anesthesia/Blood Transfusion Reaction / Comment(s): Pt states he has received blood in the past without reaction. Date of Last Stent Placement:: 2017 Smoking Status: Never smoker - Past Family History Father Family Medical History: Myocardial Infarction ([place]) Additional Family Medical History / Comment(s): PTBA Mother Family Medical History: CVA/TIA, Diabetes Mellitus Additional Family Medical History / Comment(s): Mother of a CVA at the age of 82 yrs. Brother(s) Family Medical History: Cancer Additional Family Medical History / Comment(s): 2 brothers have MS General Exam - General Exam Comments Initial Comments: Constitutional: NAD, AOX3, Pt has pleasant affect. HEENT: NC/AT, trachea midline, neck supple, no lymphadenopathy. Posterior pharynx non erythematous, without exudates. External ears appear normal, without discharge. Mucous membranes moist. Eyes PERRLA, EOM intact. There is no scleral icterus. No pallor noted. Cardiopulmonary: RRR, no murmurs, rubs or gallops, no JVD noted. Lungs CTAB in anterior and posterior sellers. No peripheral edema. Abdominal exam: Abdomen soft and non-distended. Abdomen non-tender to palpation in all 4 quadrants. Bowel sounds active in LLQ. No hepatosplenomegaly. Old ecchymosis on abdomen 2/2 chemotherapy injections. Neuro: CN II-XII grossly intact. No nuchal rigidity. MSK: No posterior calf tenderness bilaterally, homans sign negative bilaterally. Posterior tibialis and radial pulse +2 bilaterally. Sensation intact in upper and lower extremities. Full active ROM in upper and lower extremities, 5/5 stregnth. Limitations: physical limitation Course Vital Signs 12/05/18 12/05/18 12/05/18 14:16 15:00 16:20 Temperature 97.9 F Pulse Rate 81 Pulse Rate [ 81 Bilateral Radial] Respiratory 16 Rate Blood Pressure 141/75 123/69 O2 Sat by Pulse 90 L Oximetry 12/05/18 12/05/18 17:24 18:54 Temperature Pulse Rate 80 72 Pulse Rate [ Bilateral Radial] Respiratory 16 16 Rate Blood Pressure 121/64 138/74 O2 Sat by Pulse Oximetry Medical Decision Making - Medical Decision Making 73-year-old male patient passed history of leukemia, anemia, coronary artery disease, diabetes presents to ED with approximately 5 minutes of chest pain. Patient was at [facility] receiving a transfusion secondary to anemia and he started to develop chest pain underneath his left breast. Patient describes pain as a pressure sensation. Patient states that he also has some shortness of breath also developed acutely. Patient was nearing completion of transfusion when the symptoms began and he was transported down to ED for further evaluation. Upon repeated history taking patient also had mild amount of denies abdominal pain, however no focal areas of tenderness. Patient vital signs stable, afebrile. Physical exam didn't display acute pathology. Abdomen soft, nontender palpation. Abdomen does have old ecchymoses secondary to chemotherapy injections. EKG not concerning for acute ischemia. Laboratory investigations revealed significant neutropenia, pancytopenia. Correlation studies within normal limits. D-dimer negative. CMP revealed decreased kidney function, slightly increased creatinine from baseline. Test was negative. Cardiac studies were negative, troponin negative , CK-MB within normal limits. BNP within normal limits. UA negative, stool occult blood negative. Pt administered 1 unit of platelets. Patient to be admitted for continued evaluation of worsening pancytopenia, trending of cardiac enzymes. Case discussed and pt seen by Dr. Rodgers. - Lab Data Result diagrams: 12/05/18 14:44 12/05/18 14:44 Lab Results 12/05/18 12/05/18 12/05/18 Range/Units 14:44 14:44 14:44 WBC 0.6 L* (3.8-10.6) k/uL RBC 2.25 L (4.30-5.90) m/uL Hgb 6.9 L* (13.0-17.5) gm/dL Hct 20.5 L (39.0-53.0) % MCV 90.9 (80.0-100.0) fL MCH 30.7 (25.0-35.0) pg MCHC 33.7 (31.0-37.0) g/dL RDW 15.6 H (11.5-15.5) % Plt Count 16 L* (150-450) k/uL Neutrophils # INSPECTOR RUBBER STAMP DIE Differential Comment Manual Slide Review Performed Ovalocytes Present PT (9.0-12.0) sec INR (<1.2) APTT (22.0-30.0) sec D-Dimer (<0.60) mg/L FEU Sodium 137 (137-145) mmol/L Potassium 4.3 (3.5-5.1) mmol/L Chloride 106 (98-107) mmol/L Carbon Dioxide 23 (22-30) mmol/L Anion Gap 8 mmol/L BUN 30 H (9-20) mg/dL Creatinine 1.64 H (0.66-1.25) mg/dL Est GFR (CKD-EPI)AfAm 48 (>60 ml/min/1.73 sqM) Est GFR (CKD-EPI)NonAf 42 (>60 ml/min/1.73 sqM) Glucose 158 H (74-99) mg/dL Plasma Lactic Acid Bassam (0.7-2.0) mmol/L Calcium 8.6 (8.4-10.2) mg/dL Phosphorus 3.7 (2.5-4.5) mg/dL Magnesium 1.6 (1.6-2.3) mg/dL Total Bilirubin 1.1 (0.2-1.3) mg/dL AST 25 (17-59) U/L ALT 42 (21-72) U/L Alkaline Phosphatase 78 (38-126) U/L Total Creatine Kinase 103 (55-170) U/L CK-MB (CK-2) 2.0 (0.0-2.4) ng/mL CK-MB (CK-2) Rel Index 1.9 Troponin I <0.012 (0.000-0.034) ng/mL NT-Pro-B Natriuret Pep pg/mL Total Protein 6.2 L (6.3-8.2) g/dL Albumin 3.6 (3.5-5.0) g/dL Amylase (30-110) U/L Lipase (23-300) U/L Urine Color Urine Appearance (Clear) Urine pH (5.0-8.0) Ur Specific [place] (1.001-1.035) Urine Protein (Negative) Urine Glucose (UA) (Negative) Urine Ketones (Negative) Urine Blood (Negative) Urine Nitrite (Negative) Urine Bilirubin (Negative) Urine Urobilinogen (<2.0) mg/dL Ur Leukocyte Esterase (Negative) Stool Occult Blood (Negative) Blood Type Blood Type Recheck Antibody Screen Crossmatch Tx Rx Implicated Unit 1 Reaction Clerical Check Pre-Trans Blood Type Post-Trans Blood Type Post-Trans Spec Appear Post-Trans ANGEL IgG Post-Trans ANGEL Poly Spec Expiration Date 12/05/18 12/05/18 12/05/18 Range/Units 14:44 14:44 14:44 WBC (3.8-10.6) k/uL RBC (4.30-5.90) m/uL Hgb (13.0-17.5) gm/dL Hct (39.0-53.0) % MCV (80.0-100.0) fL MCH (25.0-35.0) pg MCHC (31.0-37.0) g/dL RDW (11.5-15.5) % Plt Count (150-450) k/uL Neutrophils # Differential Comment Manual Slide Review Ovalocytes PT 11.7 (9.0-12.0) sec INR 1.1 (<1.2) APTT 25.9 (22.0-30.0) sec D-Dimer 0.37 (<0.60) mg/L FEU Sodium (137-145) mmol/L Potassium (3.5-5.1) mmol/L Chloride (98-107) mmol/L Carbon Dioxide (22-30) mmol/L Anion Gap mmol/L BUN (9-20) mg/dL Creatinine (0.66-1.25) mg/dL Est GFR (CKD-EPI)AfAm (>60 ml/min/1.73 sqM) Est GFR (CKD-EPI)NonAf (>60 ml/min/1.73 sqM) Glucose (74-99) mg/dL Plasma Lactic Acid Bassam (0.7-2.0) mmol/L Calcium (8.4-10.2) mg/dL Phosphorus (2.5-4.5) mg/dL Magnesium (1.6-2.3) mg/dL Total Bilirubin (0.2-1.3) mg/dL AST (17-59) U/L ALT (21-72) U/L Alkaline Phosphatase (38-126) U/L Total Creatine Kinase (55-170) U/L CK-MB (CK-2) (0.0-2.4) ng/mL CK-MB (CK-2) Rel Index Troponin I (0.000-0.034) ng/mL NT-Pro-B Natriuret Pep 206 pg/mL Total Protein (6.3-8.2) g/dL Albumin (3.5-5.0) g/dL Amylase <30 L (30-110) U/L Lipase 64 (23-300) U/L Urine Color Urine Appearance (Clear) Urine pH (5.0-8.0) Ur Specific [place] (1.001-1.035) Urine Protein (Negative) Urine Glucose (UA) (Negative) Urine Ketones (Negative) Urine Blood (Negative) Urine Nitrite (Negative) Urine Bilirubin (Negative) Urine Urobilinogen (<2.0) mg/dL Ur Leukocyte Esterase (Negative) Stool Occult Blood (Negative) Blood Type Blood Type Recheck Antibody Screen Crossmatch Tx Rx Implicated Unit 1 Reaction Clerical Check Pre-Trans Blood Type Post-Trans Blood Type Post-Trans Spec Appear Post-Trans ANGEL IgG Post-Trans ANGEL Poly Spec Expiration Date 12/05/18 12/05/18 12/05/18 Range/Units 14:44 15:20 17:00 WBC (3.8-10.6) k/uL RBC (4.30-5.90) m/uL Hgb (13.0-17.5) gm/dL Hct (39.0-53.0) % MCV (80.0-100.0) fL MCH (25.0-35.0) pg MCHC (31.0-37.0) g/dL RDW (11.5-15.5) % Plt Count (150-450) k/uL Neutrophils # Differential Comment Manual Slide Review Ovalocytes PT (9.0-12.0) sec INR (<1.2) APTT (22.0-30.0) sec D-Dimer (<0.60) mg/L FEU Sodium (137-145) mmol/L Potassium (3.5-5.1) mmol/L Chloride (98-107) mmol/L Carbon Dioxide (22-30) mmol/L Anion Gap mmol/L BUN (9-20) mg/dL Creatinine (0.66-1.25) mg/dL Est GFR (CKD-EPI)AfAm (>60 ml/min/1.73 sqM) Est GFR (CKD-EPI)NonAf (>60 ml/min/1.73 sqM) Glucose (74-99) mg/dL Plasma Lactic Acid Bassam 0.6 L (0.7-2.0) mmol/L Calcium (8.4-10.2) mg/dL Phosphorus (2.5-4.5) mg/dL Magnesium (1.6-2.3) mg/dL Total Bilirubin (0.2-1.3) mg/dL AST (17-59) U/L ALT (21-72) U/L Alkaline Phosphatase (38-126) U/L Total Creatine Kinase (55-170) U/L CK-MB (CK-2) (0.0-2.4) ng/mL CK-MB (CK-2) Rel Index Troponin I (0.000-0.034) ng/mL NT-Pro-B Natriuret Pep pg/mL Total Protein (6.3-8.2) g/dL Albumin (3.5-5.0) g/dL Amylase (30-110) U/L Lipase (23-300) U/L Urine Color Light Yellow Urine Appearance Clear (Clear) Urine pH 5.5 (5.0-8.0) Ur Specific [place] 1.004 (1.001-1.035) Urine Protein Negative (Negative) Urine Glucose (UA) Negative (Negative) Urine Ketones Negative (Negative) Urine Blood Negative (Negative) Urine Nitrite Negative (Negative) Urine Bilirubin Negative (Negative) Urine Urobilinogen <2.0 (<2.0) mg/dL Ur Leukocyte Esterase Negative (Negative) Stool Occult Blood (Negative) Blood Type Blood Type Recheck O Pos Antibody Screen Crossmatch Tx Rx Implicated Unit 1 =[id number] Reaction Clerical Check Pass Pre-Trans Blood Type O Positive Post-Trans Blood Type O Positive Post-Trans Spec Appear Negative Post-Trans ANGEL IgG Negative Post-Trans ANGEL Poly Negative Spec Expiration Date 12/05/18 12/05/18 Range/Units 17:00 18:49 WBC (3.8-10.6) k/uL RBC (4.30-5.90) m/uL Hgb (13.0-17.5) gm/dL Hct (39.0-53.0) % MCV (80.0-100.0) fL MCH (25.0-35.0) pg MCHC (31.0-37.0) g/dL RDW (11.5-15.5) % Plt Count (150-450) k/uL Neutrophils # Differential Comment Manual Slide Review Ovalocytes PT (9.0-12.0) sec INR (<1.2) APTT (22.0-30.0) sec D-Dimer (<0.60) mg/L FEU Sodium (137-145) mmol/L Potassium (3.5-5.1) mmol/L Chloride (98-107) mmol/L Carbon Dioxide (22-30) mmol/L Anion Gap mmol/L BUN (9-20) mg/dL Creatinine (0.66-1.25) mg/dL Est GFR (CKD-EPI)AfAm (>60 ml/min/1.73 sqM) Est GFR (CKD-EPI)NonAf (>60 ml/min/1.73 sqM) Glucose (74-99) mg/dL Plasma Lactic Acid Bassam (0.7-2.0) mmol/L Calcium (8.4-10.2) mg/dL Phosphorus (2.5-4.5) mg/dL Magnesium (1.6-2.3) mg/dL Total Bilirubin (0.2-1.3) mg/dL AST (17-59) U/L ALT (21-72) U/L Alkaline Phosphatase (38-126) U/L Total Creatine Kinase (55-170) U/L CK-MB (CK-2) (0.0-2.4) ng/mL CK-MB (CK-2) Rel Index Troponin I (0.000-0.034) ng/mL NT-Pro-B Natriuret Pep pg/mL Total Protein (6.3-8.2) g/dL Albumin (3.5-5.0) g/dL Amylase (30-110) U/L Lipase (23-300) U/L Urine Color Urine Appearance (Clear) Urine pH (5.0-8.0) Ur Specific [place] (1.001-1.035) Urine Protein (Negative) Urine Glucose (UA) (Negative) Urine Ketones (Negative) Urine Blood (Negative) Urine Nitrite (Negative) Urine Bilirubin (Negative) Urine Urobilinogen (<2.0) mg/dL Ur Leukocyte Esterase (Negative) Stool Occult Blood Negative (Negative) Blood Type O Positive Blood Type Recheck No Antibody Screen NEGATIVE Crossmatch See Detail Tx Rx Implicated Unit 1 Reaction Clerical Check Pre-Trans Blood Type Post-Trans Blood Type Post-Trans Spec Appear Post-Trans ANGEL IgG Post-Trans ANGEL Poly Spec Expiration Date 12/08/20182299 - EKG Data -: EKG Interpreted by Me (and dr garza) EKG Comments: Ventricular rate 76, DAYANARA 180, QRS 92, QT/QTC 370/416. Normal sinus rhythm, normal EKG. Disposition Clinical Impression: Pancytopenia, Chest pain, atypical Disposition: ADMITTED IP TO THIS HOSP Condition: Serious Is patient prescribed a controlled substance at d/c from ED?: No Referrals: Micheal Adamson MD [Primary Care Provider] - 1-2 days
[2018-12-05 15:00] LABS: HCT 20.5 % (39.0-53.0); MCH 30.7 pg (25.0-35.0); MCHC 33.7 g/dL (31.0-37.0); MCV 90.9 fL (80.0-100.0); Mean Platelet Volume 11.3; RBC 2.25 m/uL (4.30-5.90); RDW 15.6 % (11.5-15.5)
[2018-12-05 15:13] LABS: Albumin 3.6 g/dL (3.5-5.0); Calcium 8.6 mg/dL (8.4-10.2); Creatine Kinase 103 U/L (55-170); Magnesium 1.6 mg/dL (1.6-2.3); Phosphorus 3.7 mg/dL (2.5-4.5); Potassium 4.3 mmol/L (3.5-5.1); Total Bilirubin 1.1 mg/dL (0.2-1.3); Total Protein 6.2 g/dL (6.3-8.2)
[2018-12-05 15:16] LABS: D-Dimer 0.37 mg/L FEU (<0.60); INR 1.1 (<1.2); Partial Thromboplastin Time 25.9 sec (22.0-30.0); Prothrombin Time 11.7 sec (9.0-12.0)
[2018-12-05 15:19] LABS: HGB 6.9 gm/dL (13.0-17.5); WBC 0.6 k/uL (3.8-10.6)
[2018-12-05 15:26] LABS: Troponin I <0.012 ng/mL (0.000-0.034)
[2018-12-05 15:29] LABS: Platelet Count 16 k/uL (150-450)
[2018-12-05 15:30] LABS: Ovalocytes Present
[2018-12-05 16:00] LABS: Appearance,Urine Clear (Clear); Bilirubin,Urine Negative (Negative); Blood,Urine Negative (Negative); Color,Urine Light Yellow; Glucose,Urine (UA) Negative (Negative); Ketones,Urine Negative (Negative); Leukocyte Esterase,Urine Negative (Negative); Nitrite,Urine Negative (Negative); PH, Urine 5.5 (5.0-8.0); Protein,Urine Negative (Negative); Specific Gravity,Urine 1.004 (1.001-1.035); Urobilinogen,Urine <2.0 mg/dL (<2.0)
[2018-12-05 16:09] LABS: Amylase <30 U/L (30-110); Lipase 64 U/L (23-300)
--- NOTE | 2018-12-05 16:44 | XR ---
EXAMINATION TYPE: XR chest 2V DATE OF EXAM: 12/05/2018 COMPARISON: Chest x-ray August 15, 2018 HISTORY: Left-sided chest and abdominal pain. History of leukemia. TECHNIQUE: Frontal and lateral views of the chest are obtained. FINDINGS: There is chronic parenchymal change without suspicious new focal air space opacity, pleura l effusion, or pneumothorax seen. The cardiac silhouette size is stable and upper limits of normal. The osseous structures are intact. IMPRESSION: Chronic changes without acute pulmonary process.
[2018-12-05] MEDS ORDERED: MORPHINE SULFATE 4 MG/ML SYRINGE IVP STA (17:13)
[2018-12-05] MEDS ORDERED: NALOXONE 0.4 MG/ML 1 ML VIAL IV PRN (18:42)
[2018-12-05] MEDS ORDERED: NITROGLYCERIN SL TABS 0.4 MG TAB SUBLINGUAL PRN (18:44)
[2018-12-05] MEDS ORDERED: SODIUM CHLORIDE 0.9% 1,000 ML IV SCH (18:45)
[2018-12-06 00:48] VITALS: BMI 29.0
[2018-12-06] MEDS: HYDROcodone/APAP 5-325MG 1 EACH TAB PO PRN ×2 (06:20→14:06)
[2018-12-06 07:07] LABS: Glucose,Whole Blood 131 mg/dL (75-99)
[2018-12-06 11:14] LABS: Glucose,Whole Blood 126 mg/dL (75-99)
[2018-12-06] MEDS ORDERED: LOPERAMIDE 2 MG CAP PO PRN (11:57)
[2018-12-06] MEDS ORDERED: NITROGLYCERIN SL TABS 0.4 MG TAB SUBLINGUAL PRN (11:57)
[2018-12-06] MEDS ORDERED: clonazePAM 0.5 MG TAB PO PRN (11:57)
[2018-12-06 12:10] LABS: Anisocytosis Slight; HCT 20.9 % (39.0-53.0); HGB 7.1 gm/dL (13.0-17.5); MCH 31.1 pg (25.0-35.0); MCHC 34.2 g/dL (31.0-37.0); Mean Platelet Volume 11.8; RBC 2.29 m/uL (4.30-5.90)
[2018-12-06 12:14] LABS: WBC 0.5 k/uL (3.8-10.6)
[2018-12-06 12:15] LABS: Platelet Count 15 k/uL (150-450)
[2018-12-06] MEDS ORDERED: MAGNESIUM HYDROXIDE 2,400 MG/10 ML CUP PO PRN (12:34)
[2018-12-06] MEDS ORDERED: LACTULOSE 20 GM/30 ML CUP PO ONE (12:42)
--- NOTE | 2018-12-06 13:15 | CT ---
EXAMINATION TYPE: CT brain wo con DATE OF EXAM: 12/06/2018 COMPARISON: 12/16/2016 HISTORY: WILSON, low platlets CT DLP: 1054.[address] of the brain was performed. The ventricles, basal cisterns and sulci overlying the cerebral convexities demonstrate mild enlargem ent. There is no evidence for intracranial hemorrhage or sulcal effacement. There is decreased attenuation about the periventricular white matter and deep white matter of both c erebral hemispheres, compatible with chronic small vessel ischemia. Differential diagnosis does inclu de demyelination. No mass effects are seen.No midline shift. Osseous calvarium is intact. If symptoms persist consider MRI. IMPRESSION: 1. Age related atrophic and chronic small vessel ischemic change without acute intracranial process s een at this time.
--- NOTE | 2018-12-06 13:16 | CT ---
EXAMINATION TYPE: CT abdomen pelvis wo con DATE OF EXAM: 12/06/2018 COMPARISON: June 27, 2018 HISTORY: Constipation, low platlets CT DLP: 913.2 mGycm Examination of the solid and hollow viscera is limited given the lack of contrast. FINDINGS: LUNG BASES: No evidence for nodule. No evidence for infiltrate. LIVER/GB: The gallbladder is unremarkable. No space-occupying hepatic lesion. PANCREAS: No pancreatic mass identified. No inflammatory process seen. SPLEEN: No evidence for splenomegaly. No intrasplenic lesions seen. ADRENALS: No adrenal nodules identified. No evidence for thickening. KIDNEYS: No evidence for renal mass. No nephrolithiasis. No hydronephrosis. BOWEL: Appendix has a normal appearance. No evidence of bowel obstruction. No inflammatory process. M oderate fecal stasis noted. Small hiatal hernia seen Lymph nodes: No evidence for adenopathy greater than 1 cm. Abdominal aorta: Atheromatous changes seen. No evidence for aneurysm. Genital organs: Prostate calcifications identified. Other: No significant abnormality. IMPRESSION: 1. No evidence for intra-abdominal hemorrhage. 2. Moderately severe fecal stasis.
[2018-12-06] MEDS ORDERED: ACETAMINOPHEN TAB 500 MG TAB PO PRN (13:18)
--- NOTE | 2018-12-06 13:26 | P.HPIM ---
History of Present Illness 81-year-old pleasant gentleman with history of leukemia does have pancytopenia because of which he is receiving blood transfusion and posttransfusion patient started having abdominal discomfort in the epigastric area radiating to bilateral chest area patient is also having diffuse abdominal pain mostly related to constipation. Patient pain is constant, radiation as mentioned above denied any shortness of breath diaphoresis patient does have history of coronary artery disease previous stents in the past patient had a recent cardiac catheterization at that time he did not require any stenting patient had a normal EKG and 3 sets of troponins are negative. Patient pain appears to be noncardiac clinically will not need any further intervention at this time. Patient appears to be having constipation and some acid reflux. And even though his pain started after blood transfusion I do not believe it's the and transfusion related reaction. Patient takes Bentyl and loperamide which can cause constipation dose will be discontinued. Will use when necessary constipation medications. Patient does have good bowel sounds at this time. Review of Systems REVIEW OF SYSTEMS: CONSTITUTIONAL: No fever, no malaise, no fatigue. HEENT: No recent visual problems or hearing problems. Denied any sore throat. CARDIOVASCULAR: No orthopnea, PND, no palpitations, no syncope. PULMONARY: No shortness of breath, no cough, no hemoptysis. GASTROINTESTINAL: As mentioned in HPI NEUROLOGICAL: No headaches, no weakness, no numbness. HEMATOLOGICAL: Denies any bleeding or petechiae. GENITOURINARY: Denies any burning micturition, frequency, or urgency. MUSCULOSKELETAL/RHEUMATOLOGICAL: Denies any joint pain, swelling, or any muscle pain. ENDOCRINE: Denies any polyuria or polydipsia. The rest of the 14-point review of systems is negative. 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 [facility], chronic intermittent R lower abdominal pain with etiology unknown, DM type II, BPH, rectal bleed, diverticulosis, kidney stones, "CHIPPED DISC" d/t fall Last Myocardial Infarction Date:: 2017(non q wave) History of Any Multi-Drug Resistant Organisms: None Reported Past Surgical History: Adenoidectomy, Appendectomy, Cholecystectomy, Heart Catheterization With Stent, Hernia Repair, Orthopedic Surgery, Tonsillectomy Additional Past Surgical History / Comment(s): Bilateral carpal tunnel, bone spur removals to bilateral heels," 8 cardiac STENTS", B/L KNEE BONE SPURS, CATARACTS JA with lens implants, JA INGUINAL HERNIA REPAIR AND UMBILLICAL. removal of malignant tumor from back,EGD 06-04-17, RT LEG SX FOR TORN LIGAMENT. "WAS BORN W/ OVERSIZED LIVER HAD SX TO REDUCE IT'S SIZE" Past Anesthesia/Blood Transfusion Reactions: No Reported Reaction Additional Past Anesthesia/Blood Transfusion Reaction / Comment(s): Pt states he has received blood in the past without reaction. 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 He drives. Has a person come in to clean. 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 Smoking Status: Never smoker Past Alcohol Use History: None Reported Past Drug Use History: None Reported - Past Family History Father Family Medical History: Myocardial Infarction ([place]) Additional Family Medical History / Comment(s): PTBA Mother Family Medical History: CVA/TIA, Diabetes Mellitus Additional Family Medical History / Comment(s): Mother of a CVA at the age of 82 yrs. Brother(s) Family Medical History: Cancer Additional Family Medical History / Comment(s): 2 brothers have MS Medications and Allergies Home Medications Medication Instructions Recorded Confirmed Type Dicyclomine HCl 20 mg PO DAILY 05/24/14 12/05/18 History Levothyroxine Sodium [Synthroid] 100 mcg PO DAILY 05/24/14 12/05/18 History Omeprazole 40 mg PO DAILY 05/24/14 12/05/18 History Tamsulosin [Flomax] 0.4 mg PO DAILY 10/11/16 12/05/18 History amLODIPine [Norvasc] 5 mg PO DAILY 10/11/16 12/05/18 History Aspirin EC [Ecotrin Low Dose] 81 mg PO DAILY 12/26/16 12/05/18 History Gabapentin [Neurontin] 100 mg PO HS 01/26/18 12/05/18 History clonazePAM [KlonoPIN] 0.5 mg PO DAILY PRN 01/26/18 12/05/18 History Loperamide [Imodium] 2 mg PO DAILY PRN 04/13/18 12/05/18 History Atorvastatin [Lipitor] 80 mg PO HS #30 tab 07/31/18 12/05/18 Rx Isosorbide Mononitrate ER [Imdur] 30 mg PO DAILY #30 tab.er.24h 07/31/18 Rx Nitroglycerin Sl Tabs [Nitrostat] 0.4 mg SUBLINGUAL Q5M PRN #25 tab 07/31/1812/22 Rx Ticagrelor [Brilinta] 90 mg PO BID #60 tab 07/31/18 12/05/18 Rx metFORMIN HCL 1,000 mg PO DAILY #0 07/31/18 12/05/18 Rx Docusate [Colace] 100 mg PO DAILY #20 capsule 09/01/18 12/05/18 Rx Metoprolol Succinate [Toprol Xl] 100 mg PO DAILY 11/26/18 12/05/18 History Acyclovir [Zovirax] 400 mg PO BID 12/05/18 12/05/18 History Magnesium Oxide 400 mg PO DAILY 12/05/18 12/05/18 History Nortriptyline [Pamelor] 25 mg PO DAILY 12/05/18 12/05/18 History Ondansetron [Zofran] 4 mg PO Q8H 12/05/18 12/05/18 History Venetoclax [Venclexta Starting 2 each PO DAILY 12/05/18 12/05/18 History Pack] Allergies Allergy/AdvReac Type Severity Reaction Status Date / Time No Known Allergies Allergy Verified 12/05/18 19:57 Physical Exam Vitals: Vital Signs Temp Pulse Pulse Pulse Resp BP BP 12/06/18 08:40 81 78 16 12/06/18 08:15 12/06/18 05:28 98.4 F 78 16 110/58 12/05/18 22:21 18 12/05/18 22:00 97.4 F L 78 18 157/78 12/05/18 21:39 98.2 F 12/05/18 21:32 71 18 108/69 12/05/18 20:05 82 17 118/68 12/05/18 18:54 72 16 138/74 12/05/18 17:24 80 16 121/64 12/05/18 16:20 123/69 12/05/18 15:00 81 12/05/18 14:16 97.9 F 81 16 141/75 Pulse Ox 12/06/18 08:40 12/06/18 08:15 98 12/06/18 05:28 99 12/05/18 22:21 12/05/18 22:00 98 12/05/18 21:39 12/05/18 21:32 99 12/05/18 20:05 99 12/05/18 18:54 12/05/18 17:24 12/05/18 16:20 12/05/18 15:00 12/05/18 14:16 90 L Intake and Output 12/05/18 12/06/18 12/06/18 22:59 06:59 14:59 Intake Total 880 280 Balance 880 280 Intake: Intake, IV Titration 40 160 Amount Sodium Chloride 0.9% 1, 40 160 000 ml @ 20 mls/hr IV . Q24H [facility] Rx#:[id number] Oral 840 120 Other: Voiding Method Toilet Toilet # Voids 1 1 PHYSICAL EXAMINATION: GENERAL: The patient is alert and oriented x3, not in any acute distress. Well developed, well nourished. HEENT: Pupils are round and equally reacting to light. EOMI. No scleral icterus. No conjunctival pallor. Normocephalic, atraumatic. No pharyngeal erythema. No thyromegaly. CARDIOVASCULAR: S1 and S2 present. No murmurs, rubs, or gallops. PULMONARY: Chest is clear to auscultation, no wheezing or crackles. ABDOMEN: Distended tympanic MUSCULOSKELETAL: No joint swelling or deformity. EXTREMITIES: No cyanosis, clubbing, or pedal edema. NEUROLOGICAL: Gross neurological examination did not reveal any focal deficits. SKIN: No rashes. Results CBC & Chem 7: 12/06/18 11:45 12/05/18 14:44 Labs: Abnormal Lab Results - Last 24 Hours (Table) 12/05/18 12/05/18 12/05/18 Range/Units 14:44 14:44 14:44 WBC 0.6 L* (3.8-10.6) k/uL RBC 2.25 L (4.30-5.90) m/uL Hgb 6.9 L* (13.0-17.5) gm/dL Hct 20.5 L (39.0-53.0) % RDW 15.6 H (11.5-15.5) % Plt Count 16 L* (150-450) k/uL BUN 30 H (9-20) mg/dL Creatinine 1.64 H (0.66-1.25) mg/dL Glucose 158 H (74-99) mg/dL POC Glucose (mg/dL) (75-99) mg/dL Plasma Lactic Acid Bassam (0.7-2.0) mmol/L Total Protein 6.2 L (6.3-8.2) g/dL Amylase <30 L (30-110) U/L Crossmatch 12/05/18 12/05/18 12/06/18 Range/Units 15:20 17:00 07:00 WBC (3.8-10.6) k/uL RBC (4.30-5.90) m/uL Hgb (13.0-17.5) gm/dL Hct (39.0-53.0) % RDW (11.5-15.5) % Plt Count (150-450) k/uL BUN (9-20) mg/dL Creatinine (0.66-1.25) mg/dL Glucose (74-99) mg/dL POC Glucose (mg/dL) 131 H (75-99) mg/dL Plasma Lactic Acid Bassam 0.6 L (0.7-2.0) mmol/L Total Protein (6.3-8.2) g/dL Amylase (30-110) U/L Crossmatch See Detail 12/06/18 12/06/18 Range/Units 11:12 11:45 WBC 0.5 L* (3.8-10.6) k/uL RBC 2.29 L (4.30-5.90) m/uL Hgb 7.1 L (13.0-17.5) gm/dL Hct 20.9 L (39.0-53.0) % RDW 16.0 H (11.5-15.5) % Plt Count 15 L* (150-450) k/uL BUN (9-20) mg/dL Creatinine (0.66-1.25) mg/dL Glucose (74-99) mg/dL POC Glucose (mg/dL) 126 H (75-99) mg/dL Plasma Lactic Acid Basasm (0.7-2.0) mmol/L Total Protein (6.3-8.2) g/dL Amylase (30-110) U/L Crossmatch Thrombosis Risk Factor Assmnt - Choose All That Apply Any of the Below Risk Factors Present?: Yes Each Factor Represents 1 point: Obesity (BMI >25) Other Risk Factors: Yes Each Risk Factor Represents 2 Points: Age 61-74 years, Malignancy Other congenital or acquired thrombophilia - If yes, enter type in comment: No Thrombosis Risk Factor Assessment Total Risk Factor Score: 5 Thrombosis Risk Factor Assessment Level: High Risk Assessment and Plan Plan: -Chest pain: Noncardiac pain further evaluation as mentioned above patient had recent cardiac catheterization and patient mostly has abdominal pain breath and chest pain. CAT scan of the abdomen was reviewed -Abdominal pain appears to be secondary to constipation rather and transfusion reaction. Further management as mentioned in the history itself -Acute renal failure with the creatinine going up to 1.64 patient appears to have chronic kidney disease stage II will start him IV fluids for acute renal failure acute renal failure is secondary to prerenal azotemia -Pancytopenia secondary to chemotherapy patient will not require any blood transfusion that patient will be left to Oncology. -Gases visual reflux disease next and-hypertension -Benign prostatic hypertrophic -Leukemia oncology was consulted further management as per them -Patient is not on heparin for DVT prophylaxis because of thrombocytopenia
[2018-12-06] MEDS: ONDANSETRON 4 MG TAB PO SCH ×2 (13:54→20:47)
[2018-12-06] MEDS: GABAPENTIN 100 MG CAP PO SCH (13:54)
[2018-12-06] MEDS: ATORVASTATIN 80 MG TAB PO SCH (13:54)
[2018-12-06] MEDS: POLYETHYLENE GLYCOL 3350 17 GM POWD.PACK PO SCH (13:55)
[2018-12-06] MEDS: ACYCLOVIR 200 MG CAP PO SCH (13:55)
[2018-12-06] MEDS: SODIUM CHLORIDE 0.9% 1,000 ML IV SCH (13:56)
[2018-12-06 17:29] LABS: Glucose,Whole Blood 146 mg/dL (75-99)
[2018-12-06] MEDS: INSULIN ASPART 100 UNIT/ML 1 ML 10 ML VIAL SQ SCH (20:22)
[2018-12-06 20:37] LABS: Glucose,Whole Blood 131 mg/dL (75-99)
--- NOTE | 2018-12-06 20:46 | P.CONS ---
History of Present Illness - Reason for Consult Consult date: 12/06/18 chest/abdominal pain, pancytopenia, AML - History of Present Illness Mr Ling is a pleasant WM, initially seen in consult at [facility] on 02/25/15. He had presented with s/s s/o diverticulitis. Routine CBC noted a pancytopenia with WBC 1.9, plt 128 and Hgb 8.6. CBC in 10/16 had shown a lesser degree of pancytopenia, with WBC 3000, and plt in the 100-150 K range. Her CBC this visit showed a left shift, with few circulating blasts. A bone marrow was done on 03/01 and the pt subsequently discharged. He was actually admitted with another episode of diverticulitis, and discharged on antibiotics, which led to resolution. He was seen for his 1st OV on 03/17/15. 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 Typical MDS FISH profile was negative. He was started on Dacogen and had 5 cycles. There was no significant improvement in his WBC, and a marrow was repeated on 08/04/15. This showed essentialy similiar morphology. He was referred to [facility] for possible BMT, and was felt to be a candidate. Continuation of chemo was recommended, till a donor was found, as he was felt to have had a partial response especially with his Hgb. He is now s/p 7 cycles. He underwent allo BMT at the [facility] in 10/17 He did achiever remission and followed there till 10/20. 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 Treatment with Venetoclax and Vidaza was recommended. He wanted to transfer care here and was thus seen back in 11/21. According to recommendations from [facility], the patient was started on Vidaza and Venetoclax. He started cycle 1 on 11/30/18 The patient was sent in for a blood transfusion, on 12/05/18. The initially complained of a mild headache, that was partially improved with Tylenol. Just around the completion of the transfusion unit, he started complaining of pain in his left lower chest/left abdomen. He describes the pain as severe, 7-9/10. He was sent in to the emergency room. In the emergency room he indicated that the pain was more limited to the left chest. The patient does have a history of coronary artery disease. He was therefore admitted. Workup for coronary ischemia negative so far. Consult was placed for further evaluation and recommendations. He denied any fevers, chills, or obvious bleeding. He does have bruising at the abdominal wall at the site of the Vidaza injections Review of Systems Constitutional: Reports fatigue, Reports weakness Eyes: denies blurred vision, denies pain Ears: deny: decreased hearing, ear discharge, earache, tinnitus Ears, nose, mouth and throat: Denies headache, Denies sore throat Cardiovascular: Reports chest pain, Reports decreased exercise tolerance Respiratory: Reports pain Gastrointestinal: Reports abdominal pain, Reports constipation Genitourinary: Reports as per HPI Musculoskeletal: Reports muscle weakness Integumentary: Reports as per HPI (bruising abdominal wall) Neurological: Reports weakness Psychiatric: Denies anxiety, Denies depression Endocrine: Reports fatigue Hematologic/Lymphatic: Reports as per HPI, Reports easy bruising Past Medical History Past Medical History: Coronary Artery Disease (CAD), Cancer, Chest Pain / Angina , Diabetes Mellitus, GERD/Reflux, Hypertension, Myocardial Infarction ([place]), Osteoarthritis (OA), Prostate Disorder, Thyroid Disorder Additional Past Medical History / Comment(s): having abdominal pain and rectal bleeding,2015 diagnosed with bone cancer after found to have cancerous tumor on his back-removed and pt had chemo, 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 [facility], chronic intermittedt R lower abdominal pain with etiology unknown, NIDDM type II , BPH, rectal bleed, diverticulosis, kidney stones, pt denies any kidney disease other than stones."CHIPPED DISC" d/t faLL IN NOVEMBER Last Myocardial Infarction Date:: 2017(non q wave) History of Any Multi-Drug Resistant Organisms: None Reported Past Surgical History: Adenoidectomy, Appendectomy, Cholecystectomy, Heart Catheterization With Stent, Hernia Repair, Orthopedic Surgery, Tonsillectomy Additional Past Surgical History / Comment(s): Bilateral carpal tunnel, bone spur removals to bilateral heels and FEET," 8 cardiac STENTS", B/L KNEE BONE SPURS, CATARACTS JA with lens implants, JA INGUINAL HERNIA REPAIR AND UMBILLICAL. removal of malignant tumor from back,EGD 06-04-17, RT LEG SX FOR TORN LIGAMENT."WAS BORN W/ OVERSIZED LIVER HAD SX TO REDUCE IT'S SIZE" Past Anesthesia/Blood Transfusion Reactions: No Reported Reaction Additional Past Anesthesia/Blood Transfusion Reaction / Comm: Pt states he has received blood in the past without reaction. Date of Last Stent Placement:: 2017 Smoking Status: Never smoker - Past Family History Father Family Medical History: Myocardial Infarction ([place]) Additional Family Medical History / Comment(s): PTBA Mother Family Medical History: CVA/TIA, Diabetes Mellitus Additional Family Medical History / Comment(s): Mother of a CVA at the age of 82 yrs. Brother(s) Family Medical History: Cancer Additional Family Medical History / Comment(s): 2 brothers have MS Medications and Allergies Home Medications Medication Instructions Recorded Confirmed Type Dicyclomine HCl 20 mg PO DAILY 05/24/14 12/05/18 History Levothyroxine Sodium [Synthroid] 100 mcg PO DAILY 05/24/14 12/05/18 History Omeprazole 40 mg PO DAILY 05/24/14 12/05/18 History Tamsulosin [Flomax] 0.4 mg PO DAILY 10/11/16 12/05/18 History amLODIPine [Norvasc] 5 mg PO DAILY 10/11/16 12/05/18 History Aspirin EC [Ecotrin Low Dose] 81 mg PO DAILY 12/26/16 12/05/18 History Gabapentin [Neurontin] 100 mg PO HS 01/26/18 12/05/18 History clonazePAM [KlonoPIN] 0.5 mg PO DAILY PRN 01/26/18 12/05/18 History Loperamide [Imodium] 2 mg PO DAILY PRN 04/13/18 12/05/18 History Atorvastatin [Lipitor] 80 mg PO HS #30 tab 07/31/18 12/05/18 Rx Isosorbide Mononitrate ER [Imdur] 30 mg PO DAILY #30 tab.er.24h 07/31/18 Rx Nitroglycerin Sl Tabs [Nitrostat] 0.4 mg SUBLINGUAL Q5M PRN #25 tab 07/31/1812/22 Rx Ticagrelor [Brilinta] 90 mg PO BID #60 tab 07/31/18 12/05/18 Rx metFORMIN HCL 1,000 mg PO DAILY #0 07/31/18 12/05/18 Rx Docusate [Colace] 100 mg PO DAILY #20 capsule 09/01/18 12/05/18 Rx Metoprolol Succinate [Toprol Xl] 100 mg PO DAILY 11/26/18 12/05/18 History Acyclovir [Zovirax] 400 mg PO BID 12/05/18 12/05/18 History Magnesium Oxide 400 mg PO DAILY 12/05/18 12/05/18 History Nortriptyline [Pamelor] 25 mg PO DAILY 12/05/18 12/05/18 History Ondansetron [Zofran] 4 mg PO Q8H 12/05/18 12/05/18 History Venetoclax [Venclexta Starting 2 each PO DAILY 12/05/18 12/05/18 History Pack] Allergies Allergy/AdvReac Type Severity Reaction Status Date / Time No Known Allergies Allergy Verified 12/05/18 19:57 Physical Exam Vitals: Vital Signs Temp Pulse Pulse Pulse Resp BP BP 12/06/18 17:28 97.2 F L 79 18 135/69 12/06/18 16:09 98.0 F 73 18 132/67 12/06/18 15:46 81 78 18 12/06/18 15:39 98.1 F 84 20 128/76 12/06/18 15:29 97.9 F 71 18 151/66 12/06/18 15:20 97.2 F L 80 20 132/67 12/06/18 15:17 97.4 F L 70 20 141/67 12/06/18 13:33 97.5 F L 78 16 139/72 12/06/18 08:40 81 78 16 12/06/18 08:15 12/06/18 05:28 98.4 F 78 16 110/58 12/05/18 22:21 18 12/05/18 22:00 97.4 F L 78 18 157/78 12/05/18 21:39 98.2 F 12/05/18 21:32 71 18 108/69 12/05/18 20:05 82 17 118/68 Pulse Ox 12/06/18 17:28 97 12/06/18 16:09 96 12/06/18 15:46 12/06/18 15:39 98 12/06/18 15:29 97 12/06/18 15:20 98 02/03/19 15:17 96 12/06/18 13:33 100 12/06/18 08:40 12/06/18 08:15 98 12/06/18 05:28 99 12/05/18 22:21 12/05/18 22:00 98 12/05/18 21:39 12/05/18 21:32 99 12/05/18 20:05 99 Intake and Output 12/06/18 12/06/18 12/06/18 06:59 14:59 22:59 Intake Total 280 400 0 Balance 280 400 0 Intake: Intake, IV Titration 160 160 Amount Sodium Chloride 0.9% 1, 160 160 000 ml @ 20 mls/hr IV . Q24H [facility] Rx#:[id number] Oral 120 240 Blood Product 0 Rc Irr Cpda1 Unit 0 [id number] Other: Voiding Method Toilet Toilet # Voids 1 3 - Constitutional General appearance: no acute distress - EENT Eyes: EOMI, PERRLA ENT: hearing grossly normal, normal oropharynx - Neck Neck: no lymphadenopathy Thyroid: bilateral: normal size - Respiratory Respiratory: bilateral: CTA - Cardiovascular Rhythm: regular Heart sounds: normal: S1, S2 - Gastrointestinal bruising ant abdominal wall General gastrointestinal: normal bowel sounds, soft - Integumentary as per HPI - Neurologic Neurologic: CNII-XII intact - Musculoskeletal Musculoskeletal: strength equal bilaterally - Psychiatric Psychiatric: A&O x's 3, appropriate affect Results CBC & Chem 7: 12/06/18 11:45 12/05/18 14:44 Labs: Abnormal Lab Results - Last 24 Hours (Table) 12/05/18 12/06/18 12/06/18 Range/Units 17:00 07:00 11:12 WBC (3.8-10.6) k/uL RBC (4.30-5.90) m/uL Hgb (13.0-17.5) gm/dL Hct (39.0-53.0) % RDW (11.5-15.5) % Plt Count (150-450) k/uL POC Glucose (mg/dL) 131 H 126 H (75-99) mg/dL Crossmatch See Detail 12/06/18 12/06/18 Range/Units 11:45 17:26 WBC 0.5 L* (3.8-10.6) k/uL RBC 2.29 L (4.30-5.90) m/uL Hgb 7.1 L (13.0-17.5) gm/dL Hct 20.9 L (39.0-53.0) % RDW 16.0 H (11.5-15.5) % Plt Count 15 L* (150-450) k/uL POC Glucose (mg/dL) 146 H (75-99) mg/dL Crossmatch Chest x-ray: report reviewed Assessment and Plan (1) Chest pain, atypical Narrative/Plan: On the floor, posttransfusion the patient had actually complained of abdominal pain. In the ER indicated that the pain was in the left lower chest. On questioning today he stated that the pain was in both the left lower chest as well as the left upper and mid abdomen area. Given his prior history the patient appropriately had a workup for ischemia. This is negative so far. At this time again the patient indicates more of abdominal discomfort. Current Visit: Yes Status: Acute Code(s): R07.89 - OTHER CHEST PAIN SNOMED Code(s): 264976303 (2) Abdominal pain Narrative/Plan: As above. At this time the patient is complaining more of abdominal discomfort. A physical exam is fairly unremarkable. The patient has been constipated for a few days, and states that he feels like he wants bowel movement. This could be the source of his abdominal pain. CT of the abdomen will be ordered to rule out bleed. The patient is also soft. A laxative will also be ordered. Current Visit: No Status: Acute Code(s): R10.9 - UNSPECIFIED ABDOMINAL PAIN SNOMED Code(s): 23883670 (3) Pancytopenia Narrative/Plan: Due to underlying acute myeloid leukemia, as well as treatment effect. Supportive transfusions as needed. After 1 unit hemoglobin was 7.1. An additional unit of PRBC will be ordered. Platelet count is greater than 10, 000. Transfuse if less than 10,000, or otherwise if there is evidence of bleeding. Current Visit: Yes Status: Acute Code(s): D61.818 - OTHER PANCYTOPENIA SNOMED Code(s): 209870280 (4) Acute myeloblastic leukemia Narrative/Plan: The patient has secondary AML, with prior history of MDS. He has just started his regimen on 11/30/18. Assuming acute situation is resolved in a satisfactory manner, he will continue treatment. Venetoclax will be ordered to be continued as an inpatient Current Visit: Yes Status: Acute Code(s): C92.00 - ACUTE MYELOBLASTIC LEUKEMIA, NOT HAVING ACHIEVED REMISSION SNOMED Code(s): 18101135
[2018-12-06] MEDS: TICAGRELOR 90 MG TAB PO SCH (20:54)
[2018-12-06 20:58] VITALS: RESP 16
[2018-12-07] MEDS: SODIUM CHLORIDE 0.9% 1,000 ML IV SCH ×3 (04:51→20:02)
[2018-12-07] MEDS: ONDANSETRON 4 MG TAB PO SCH ×3 (04:51→20:01)
[2018-12-07] MEDS: LEVOTHYROXINE 100 MCG TAB PO SCH (05:32)
[2018-12-07 07:15] LABS: Glucose,Whole Blood 125 mg/dL (75-99)
[2018-12-07] MEDS: INSULIN ASPART 100 UNIT/ML 1 ML 10 ML VIAL SQ SCH ×4 (07:54→20:39)
[2018-12-07] MEDS: PANTOPRAZOLE 40 MG TABLET PO SCH (07:54)
[2018-12-07] MEDS: ACYCLOVIR 200 MG CAP PO SCH ×2 (08:00→20:39)
[2018-12-07] MEDS: DOCUSATE 100 MG CAP PO SCH (08:00)
[2018-12-07] MEDS: TAMSULOSIN 0.4 MG CAP.ER.24H PO SCH (08:00)
[2018-12-07] MEDS: ISOSORBIDE MONONITRATE ER 30 MG TAB.ER.24H PO SCH (08:00)
[2018-12-07] MEDS: METOPROLOL SUCCINATE (ER) 100 MG TAB.ER.24H PO SCH (08:00)
[2018-12-07] MEDS: TICAGRELOR 90 MG TAB PO SCH ×2 (08:01→20:51)
[2018-12-07] MEDS: NORTRIPTYLINE 25 MG CAP PO SCH (08:01)
[2018-12-07] MEDS ORDERED: ASPIRIN 81 MG PO SCH (09:00)
[2018-12-07] MEDS ORDERED: DICYCLOMINE 20 MG TAB PO SCH (09:00)
[2018-12-07 11:27] LABS: Glucose,Whole Blood 138 mg/dL (75-99)
--- NOTE | 2018-12-07 11:41 | P.PN ---
Subjective Patient resting in bed states of abdominal pain greatly improved. Patient noted to have constipation has had a good bowel movement. Patient to. discuss with oncology regarding chemotherapy treatment Objective - Vital Signs Vital signs: Vital Signs Temp 98.1 F 12/07/18 05:49 Pulse 82 12/07/18 05:49 Resp 16 12/07/18 05:49 BP 148/72 12/07/18 05:49 Pulse Ox 98 12/07/18 05:49 Intake & Output 12/06/18 12/07/18 12/07/18 18:59 06:59 18:59 Intake Total 400 Balance 400 Intake: Intake, IV Titration 160 Amount Sodium Chloride 0.9% 1, 160 000 ml @ 20 mls/hr IV . Q24H [facility] Rx#:[id number] Oral 240 Blood Product 0 Rc Irr Cpda1 Unit 0 [id number] Other: Voiding Method Toilet Toilet Toilet # Voids 3 4 # Bowel Movements 1 - Constitutional General appearance: Present: mild distress - EENT Eyes: Present: PERRLA Ears: bilateral: normal - Neck Neck: Present: normal ROM - Respiratory Respiratory: bilateral: CTA - Cardiovascular Rhythm: regular Abnormal Heart Sounds: Present: systolic murmur - Gastrointestinal General gastrointestinal: Present: soft Localized gastrointestinal: tender: suprabubic - Integumentary Integumentary: Present: normal - Neurologic Neurologic: Present: CNII-XII intact - Musculoskeletal Musculoskeletal: Present: generalized weakness - Psychiatric Psychiatric: Present: A&O x's 3, appropriate affect, intact judgment & insight - Labs CBC & Chem 7: 12/06/18 11:45 12/05/18 14:44 Labs: Abnormal Lab Results - Last 24 Hours (Table) 12/05/18 12/06/18 12/06/18 Range/Units 17:00 11:45 17:26 WBC 0.5 L* (3.8-10.6) k/uL RBC 2.29 L (4.30-5.90) m/uL Hgb 7.1 L (13.0-17.5) gm/dL Hct 20.9 L (39.0-53.0) % RDW 16.0 H (11.5-15.5) % Plt Count 15 L* (150-450) k/uL POC Glucose (mg/dL) 146 H (75-99) mg/dL Crossmatch See Detail 12/06/18 12/07/18 12/07/18 Range/Units 20:00 07:15 11:25 WBC (3.8-10.6) k/uL RBC (4.30-5.90) m/uL Hgb (13.0-17.5) gm/dL Hct (39.0-53.0) % RDW (11.5-15.5) % Plt Count (150-450) k/uL POC Glucose (mg/dL) 131 H 125 H 138 H (75-99) mg/dL Crossmatch - Imaging and Cardiology Chest x-ray: report reviewed CT scan - abdomen: report reviewed Assessment and Plan Plan: Assessment Chest pain noncardiac Abdominal pain secondary to constipation Acute renal failure chronic kidney disease stage II Pancytopenia secondary to chemotherapy BPH Leukemia Plan Continue consultation with Dr. Vieyra
[2018-12-07 13:52] LABS: Hemoglobin A1C 7.7 % (4.0-6.0)
--- NOTE | 2018-12-07 17:20 | P.PN ---
Subjective Progress Note Date: 12/07/18 Principal diagnosis: AML, on venetoclax and vidaza In f/u today pt has c/o tired, weak, poor appetite, denied fever, oral irritation, vomiting, mild SOB on exertion but no HALINA, abd cramping or pain, dysuria, hematuria, he had a very large BM yesterday after being treated for about 1 week constipation. Objective - Vital Signs Vital signs: Vital Signs Temp 97.8 F 12/07/18 12:06 Pulse 72 12/07/18 12:06 Resp 16 12/07/18 12:06 BP 120/68 12/07/18 12:06 Pulse Ox 99 12/07/18 12:06 Intake & Output 12/06/18 12/07/18 12/07/18 18:59 06:59 18:59 Intake Total 400 1400 Balance 400 1400 Intake: Intake, IV Titration 160 800 Amount Sodium Chloride 0.9% 1, 800 000 ml @ 100 mls/hr IV . Q10H JULIANA Rx#:[id number] Sodium Chloride 0.9% 1, 160 000 ml @ 20 mls/hr IV . Q24H JULIANA Rx#:[id number] Oral 240 600 Blood Product 0 Rc Irr Cpda1 Unit 0 [id number] Other: Voiding Method Toilet Toilet Toilet # Voids 3 4 2 # Bowel Movements 1 4 - Constitutional General appearance: Present: average body habitus, cooperative, no acute distress - EENT Eyes: Present: anicteric sclerae, EOMI ENT: Present: hearing grossly normal, normal oropharynx - Respiratory Respiratory: bilateral: CTA - Cardiovascular Rhythm: regular Heart sounds: normal: S1, S2 Abnormal Heart Sounds: Present: systolic murmur (harsh, >at RSB 3rd ICS, 3/6) - Peripheral edema leg Peripheral Edema: bilateral: None - Gastrointestinal General gastrointestinal: Present: normal bowel sounds, soft. Absent: absent bowel sounds, decreased bowel sounds, distended, hyperactive bowel sounds, organomegaly, rigid, scaphoid, tenderness - Integumentary Integumentary: Present: pale - Neurologic Neurologic: Present: CNII-XII intact - Musculoskeletal Musculoskeletal: Present: generalized weakness, strength equal bilaterally - Psychiatric Psychiatric: Present: A&O x's 3, appropriate affect, intact judgment & insight - Labs CBC & Chem 7: 12/06/18 11:45 12/05/18 14:44 Labs: Abnormal Lab Results - Last 24 Hours (Table) 12/05/18 12/06/18 12/06/18 Range/Units 17:00 11:45 17:26 POC Glucose (mg/dL) 146 H (75-99) mg/dL Hemoglobin A1c 7.7 H (4.0-6.0) % Crossmatch See Detail 12/06/18 12/07/18 12/07/18 Range/Units 20:00 07:15 11:25 POC Glucose (mg/dL) 131 H 125 H 138 H (75-99) mg/dL Hemoglobin A1c (4.0-6.0) % Crossmatch Assessment and Plan (1) Acute myeloblastic leukemia Narrative/Plan: Cont oral venetoclax. IV vidaza last 2 days of 1st cycle will be dropped. Pt will resume treatment on sched at the beginning of January. He has f/u appt sched for next Friday Current Visit: Yes Status: Acute Code(s): C92.00 - ACUTE MYELOBLASTIC LEUKEMIA, NOT HAVING ACHIEVED REMISSION SNOMED Code(s): 49679159 (2) Pancytopenia Narrative/Plan: Due to disease and treatment of disease. He does require PRBC transfusions PRN. Labs in AM. NO GCSF Current Visit: Yes Status: Acute Priority: High Code(s): D61.818 - OTHER PANCYTOPENIA SNOMED Code(s): 937265046 (3) Constipation Narrative/Plan: Resolved early this AM. Cont stool softeners Current Visit: Yes Status: Acute Priority: High Code(s): K59.00 - CONSTIPATION, UNSPECIFIED SNOMED Code(s): 07617708
[2018-12-07 17:28] LABS: Glucose,Whole Blood 106 mg/dL (75-99)
[2018-12-07] MEDS: ATORVASTATIN 80 MG TAB PO SCH (20:38)
[2018-12-07] MEDS: POLYETHYLENE GLYCOL 3350 17 GM POWD.PACK PO SCH (20:38)
[2018-12-07] MEDS: GABAPENTIN 100 MG CAP PO SCH (20:39)
[2018-12-07 20:53] LABS: Glucose,Whole Blood 136 mg/dL (75-99)
[2018-12-08] MEDS: ONDANSETRON 4 MG TAB PO SCH ×2 (03:57→13:26)
[2018-12-08] MEDS: SODIUM CHLORIDE 0.9% 1,000 ML IV SCH (04:12)
[2018-12-08] MEDS: LEVOTHYROXINE 100 MCG TAB PO SCH (05:54)
[2018-12-08 06:54] LABS: Glucose,Whole Blood 123 mg/dL (75-99)
[2018-12-08 08:29] LABS: HCT 21.8 % (39.0-53.0); HGB 7.2 gm/dL (13.0-17.5); MCH 30.2 pg (25.0-35.0); MCV 91.6 fL (80.0-100.0); RBC 2.37 m/uL (4.30-5.90); RDW 15.6 % (11.5-15.5)
[2018-12-08] MEDS: ISOSORBIDE MONONITRATE ER 30 MG TAB.ER.24H PO SCH (08:43)
[2018-12-08] MEDS: PANTOPRAZOLE 40 MG TABLET PO SCH (08:43)
[2018-12-08] MEDS: INSULIN ASPART 100 UNIT/ML 1 ML 10 ML VIAL SQ SCH ×2 (08:43→13:26)
[2018-12-08] MEDS: TAMSULOSIN 0.4 MG CAP.ER.24H PO SCH (08:43)
[2018-12-08] MEDS: DOCUSATE 100 MG CAP PO SCH (08:43)
[2018-12-08] MEDS: ACYCLOVIR 200 MG CAP PO SCH (08:43)
[2018-12-08] MEDS: TICAGRELOR 90 MG TAB PO SCH (08:44)
[2018-12-08] MEDS: METOPROLOL SUCCINATE (ER) 100 MG TAB.ER.24H PO SCH (08:44)
[2018-12-08] MEDS: NORTRIPTYLINE 25 MG CAP PO SCH (08:44)
[2018-12-08 08:45] LABS: Platelet Count 16 k/uL (150-450); WBC 0.6 k/uL (3.8-10.6)
[2018-12-08 11:09] LABS: Glucose,Whole Blood 146 mg/dL (75-99)
--- NOTE | 2018-12-08 12:09 | P.DS ---
Providers Date of admission: 12/05/18 21:02 Expected date of discharge: 12/08/18 Attending physician: Micheal Adamson Consults: 12/05/18 17:00 Consult Physician Routine Consulting Provider: Edgar Vieyra Consult Reason/Comments: pancytopenia Do you want consulting provider notified?: Yes Primary care physician: Micheal Adamson Hospital Course: 73-year-old male was brought to the emergency room with complaints of home noncardiac chest pain diffuse abdominal pain related to constipation. Patient has pancytopenia PEDIA secondary to chemotherapy patient has acute myoplastic leukemia. Patient is stabilized and cleared for discharge per oncology. 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 Pancytopenia secondary to chemotherapy History of gastric reflux Plan Continue treatment with oncology Patient Condition at Discharge: Serious Plan - Discharge Summary New Discharge Prescriptions: New Acetaminophen Tab [Tylenol] 1,000 mg PO Q6HR PRN tab PRN Reason: Fever And/ Or Pain HYDROcodone/APAP 5-325MG [[place] 5-325] 2 each PO Q6HR PRN tab PRN Reason: Pain Polyethylene Glycol 3350 [Miralax] 17 gm PO HS powd.pack Continue Dicyclomine HCl 20 mg PO DAILY Levothyroxine Sodium [Synthroid] 100 mcg PO DAILY Omeprazole 40 mg PO DAILY Tamsulosin [Flomax] 0.4 mg PO DAILY amLODIPine [Norvasc] 5 mg PO DAILY clonazePAM [KlonoPIN] 0.5 mg PO DAILY PRN PRN Reason: Anxiety Gabapentin [Neurontin] 100 mg PO HS Atorvastatin [Lipitor] 80 mg PO HS #30 tab Nitroglycerin Sl Tabs [Nitrostat] 0.4 mg SUBLINGUAL Q5M PRN #25 tab PRN Reason: Chest Pain Ticagrelor [Brilinta] 90 mg PO BID #60 tab Isosorbide Mononitrate ER [Imdur] 30 mg PO DAILY #30 tab.er.24h metFORMIN HCL 1,000 mg PO DAILY #0 Docusate [Colace] 100 mg PO DAILY #20 capsule Metoprolol Succinate [Toprol Xl] 100 mg PO DAILY Magnesium Oxide 400 mg PO DAILY Nortriptyline [Pamelor] 25 mg PO DAILY Venetoclax [Venclexta Starting Pack] 2 each PO DAILY Acyclovir [Zovirax] 400 mg PO BID Ondansetron [Zofran] 4 mg PO Q8H Discontinued Aspirin EC [Ecotrin Low Dose] 81 mg PO DAILY Loperamide [Imodium] 2 mg PO DAILY PRN PRN Reason: Constipation Discharge Medication List Dicyclomine HCl 20 mg PO DAILY 05/24/14 [History] Levothyroxine Sodium [Synthroid] 100 mcg PO DAILY 05/24/14 [History] Omeprazole 40 mg PO DAILY 05/24/14 [History] Tamsulosin [Flomax] 0.4 mg PO DAILY 10/11/16 [History] amLODIPine [Norvasc] 5 mg PO DAILY 10/11/16 [History] Gabapentin [Neurontin] 100 mg PO HS 01/26/18 [History] clonazePAM [KlonoPIN] 0.5 mg PO DAILY PRN 01/26/18 [History] Atorvastatin [Lipitor] 80 mg PO HS #30 tab 07/31/18 [Rx] Isosorbide Mononitrate ER [Imdur] 30 mg PO DAILY #30 tab.er.24h 07/31/18 [Rx] Nitroglycerin Sl Tabs [Nitrostat] 0.4 mg SUBLINGUAL Q5M PRN #25 tab 07/31/18 [Rx ] Ticagrelor [Brilinta] 90 mg PO BID #60 tab 07/31/18 [Rx] metFORMIN HCL 1,000 mg PO DAILY #0 07/31/18 [Rx] Docusate [Colace] 100 mg PO DAILY #20 capsule 09/01/18 [Rx] Metoprolol Succinate [Toprol Xl] 100 mg PO DAILY 11/26/18 [History] Acyclovir [Zovirax] 400 mg PO BID 12/05/18 [History] Magnesium Oxide 400 mg PO DAILY 12/05/18 [History] Nortriptyline [Pamelor] 25 mg PO DAILY 12/05/18 [History] Ondansetron [Zofran] 4 mg PO Q8H 12/05/18 [History] Venetoclax [Venclexta Starting Pack] 2 each PO DAILY 12/05/18 [History] Acetaminophen Tab [Tylenol] 1,000 mg PO Q6HR PRN tab 12/08/18 [Rx] HYDROcodone/APAP 5-325MG [[place] 5-325] 2 each PO Q6HR PRN tab 12/08/18 [Rx] Polyethylene Glycol 3350 [Miralax] 17 gm PO HS powd.pack 12/08/18 [Rx] Follow up Appointment(s)/Referral(s): Micheal Adamson MD [Primary Care Provider] - 1-2 days Denise Orosco NPC [Nurse Practitioner] - 12/14/18 8:45 am
[2018-12-08 12:33] VITALS: BP 119/67; PULSE 77; TEMP 98.3
--- NOTE | 2018-12-08 17:27 | P.PN ---
Subjective Progress Note Date: 12/08/18 Principal diagnosis: AML patient labs remain stable for him. He is anxious for discharge, no bleeding, bruising, fevers Objective - Vital Signs Vital signs: Vital Signs Temp 98.6 F 12/08/18 04:56 Pulse 81 12/08/18 04:56 Resp 16 12/08/18 04:56 BP 111/63 12/08/18 04:56 Pulse Ox 98 12/08/18 04:56 Intake & Output 12/07/18 12/08/18 12/08/18 18:59 06:59 18:59 Intake Total 1400 3240 Balance 1400 3240 Intake: Intake, IV Titration 800 1200 Amount Sodium Chloride 0.9% 1, 800 1200 000 ml @ 100 mls/hr IV . Q10H JULIANA Rx#:[id number] Oral 600 2040 Other: Voiding Method Toilet Toilet Toilet # Voids 2 2 # Bowel Movements 4 - Exam Constitutional General appearance: Present: average body habitus, cooperative, no acute distress - EENT Eyes: Present: anicteric sclerae, EOMI ENT: Present: hearing grossly normal, normal oropharynx - Respiratory Respiratory: bilateral: CTA - Cardiovascular Rhythm: regular Heart sounds: normal: S1, S2 Abnormal Heart Sounds: Present: systolic murmur (harsh, >at RSB 3rd ICS, 3/6) - Peripheral edema leg Peripheral Edema: bilateral: None - Gastrointestinal General gastrointestinal: Present: normal bowel sounds, soft. Absent: absent bowel sounds, decreased bowel sounds, distended, hyperactive bowel sounds, organomegaly, rigid, scaphoid, tenderness - Integumentary Integumentary: Present: pale - Neurologic Neurologic: Present: CNII-XII intact - Musculoskeletal Musculoskeletal: Present: generalized weakness, strength equal bilaterally - Psychiatric Psychiatric: Present: A&O x's 3, appropriate affect, intact judgment & insight - Labs CBC & Chem 7: 12/08/18 07:26 12/05/18 14:44 Labs: Abnormal Lab Results - Last 24 Hours (Table) 12/06/18 12/07/18 12/07/18 Range/Units 11:45 11:25 17:27 WBC (3.8-10.6) k/uL RBC (4.30-5.90) m/uL Hgb (13.0-17.5) gm/dL Hct (39.0-53.0) % RDW (11.5-15.5) % Plt Count (150-450) k/uL POC Glucose (mg/dL) 138 H 106 H (75-99) mg/dL Hemoglobin A1c 7.7 H (4.0-6.0) % 12/07/18 12/08/18 12/08/18 Range/Units 20:35 06:53 07:26 WBC 0.6 L* (3.8-10.6) k/uL RBC 2.37 L (4.30-5.90) m/uL Hgb 7.2 L (13.0-17.5) gm/dL Hct 21.8 L (39.0-53.0) % RDW 15.6 H (11.5-15.5) % Plt Count 16 L* (150-450) k/uL POC Glucose (mg/dL) 136 H 123 H (75-99) mg/dL Hemoglobin A1c (4.0-6.0) % Assessment and Plan Plan: Assessment and Recommendations: 1. AML - - Will Resume Cycle one of Vidaza as outpatient Day 6 and 7 - Continue with CBC checks 2-3 times a week and continue supportive transfusions Ok for discharge from oncology standpoint. Physician Attestation: I kishore completed the full history and physical of this patient and agree with above dictation by Jayne Bourgeois NP. Dictated as a scribe.
== END 2018-12-08 13:50 | disposition home or self-care (01) | DRG 809 ==
LOC: EC 14:04 → 3NMEDONC 21:02
PROVIDERS: ADMIT Family Medicine; ATTEND Family Medicine
DX: D61.810 Antineoplastic chemotherapy induced pancytopenia (principal); C92.00 Acute myeloblastic leukemia, not having achieved remission; N17.9 Acute kidney failure, unspecified; E11.22 Type 2 diabetes mellitus with diabetic chronic kidney disease; F32.9 Major depressive disorder, single episode, unspecified; I12.9 Hypertensive chronic kidney disease with stage 1 through stage 4 chronic kidney disease, or unspecified chronic kidney disease; I25.10 Atherosclerotic heart disease of native coronary artery without angina pectoris; I25.2 Old myocardial infarction; K21.9 Gastro-esophageal reflux disease without esophagitis; K59.00 Constipation, unspecified; N18.2 Chronic kidney disease, stage 2 (mild); N40.0 Benign prostatic hyperplasia without lower urinary tract symptoms; T45.1X5A Adverse effect of antineoplastic and immunosuppressive drugs, initial encounter; Z79.02 Long term (current) use of antithrombotics/antiplatelets; Z79.82 Long term (current) use of aspirin; Z79.84 Long term (current) use of oral hypoglycemic drugs; Z79.890 Hormone replacement therapy; Z79.899 Other long term (current) drug therapy; Z82.3 Family history of stroke; Z82.49 Family history of ischemic heart disease and other diseases of the circulatory system; Z83.3 Family history of diabetes mellitus; Z87.442 Personal history of urinary calculi; Z91.81 History of falling; Z95.5 Presence of coronary angioplasty implant and graft; Z98.42 Cataract extraction status, left eye; Z98.41 Cataract extraction status, right eye; Z96.1 Presence of intraocular lens; Z90.49 Acquired absence of other specified parts of digestive tract
CPT/HCPCS: 36415; 70450; 71046; 74176; 80053; 81003; 82150; 82272; 82550; 82553; 83036; 83605; 83690; 83735; 83880; 84100; 84484; 85025; 85379; 85610; 85730; 86850; 86880; 86900; 86901; 86920; 93005; 96361; 96374; 99285

== ENCOUNTER 2018-12-16 11:06 | Observation (INO) | payer MEDICARE, OTHER ==
--- NOTE | 2018-12-16 11:38 | ED ---
General Adult HPI - General Chief complaint: Chest Pain Stated complaint: Chest pain, HALINA Time Seen by Provider: 12/16/18 11:16 Source: patient, RN notes reviewed Mode of arrival: wheelchair Limitations: no limitations - History of Present Illness Initial comments: Patient is a pleasant 73-year-old male presenting to the emergency Department with complaints of chest discomfort and difficulty in breathing. Patient had onset of symptoms early this morning. Symptoms were while exerting himself doing laundry. Symptoms did improve with rest. Symptoms are mild at this time. Discomfort is upper chest with some associated dyspnea. No nausea vomiting or diaphoresis. Patient has had some abdominal discomfort however this is chronic and unchanged. Patient does have history of blood cancer, unclear what time. Patient was a chemotherapy injections however now is only on oral medication. Patient has plans with his physician and restarting chemotherapy injections in the near future. No leg pain or leg swelling. - Related Data Home Medications Medication Instructions Recorded Confirmed Dicyclomine HCl 20 mg PO DAILY 05/24/14 12/16/18 Levothyroxine Sodium [Synthroid] 100 mcg PO DAILY 05/24/14 12/16/18 Omeprazole 40 mg PO DAILY 05/24/14 12/16/18 Tamsulosin [Flomax] 0.4 mg PO DAILY 10/11/16 12/16/18 amLODIPine [Norvasc] 5 mg PO DAILY 10/11/16 12/16/18 Gabapentin [Neurontin] 100 mg PO HS 01/26/18 12/16/18 clonazePAM [KlonoPIN] 0.5 mg PO DAILY PRN 01/26/18 12/16/18 Metoprolol Succinate [Toprol Xl] 100 mg PO DAILY 11/26/18 12/16/18 Acyclovir [Zovirax] 400 mg PO BID 12/05/18 12/16/18 Magnesium Oxide 400 mg PO DAILY 12/05/18 12/16/18 Nortriptyline [Pamelor] 25 mg PO DAILY 12/05/18 12/16/18 Ondansetron [Zofran] 4 mg PO Q8H 12/05/18 12/16/18 Venetoclax [Venclexta] 200 mg PO DAILY 12/16/18 12/16/18 Previous Rx's Medication Instructions Recorded Atorvastatin [Lipitor] 80 mg PO HS #30 tab 07/31/18 Isosorbide Mononitrate ER [Imdur] 30 mg PO DAILY #30 tab.er.24h 07/31/18 Nitroglycerin Sl Tabs [Nitrostat] 0.4 mg SUBLINGUAL Q5M PRN #25 tab 07/31/18 Ticagrelor [Brilinta] 90 mg PO BID #60 tab 07/31/18 metFORMIN HCL 1,000 mg PO DAILY #0 07/31/18 Docusate [Colace] 100 mg PO DAILY #20 capsule 09/01/18 Acetaminophen Tab [Tylenol] 1,000 mg PO Q6HR PRN tab 12/08/18 HYDROcodone/APAP 5-325MG [[place] 2 each PO Q6HR PRN tab 12/08/18 5-325] Polyethylene Glycol 3350 [Miralax] 17 gm PO HS powd.pack 12/08/18 Allergies Allergy/AdvReac Type Severity Reaction Status Date / Time No Known Allergies Allergy Verified 12/16/18 11:34 Review of Systems ROS Statement: Those systems with pertinent positive or pertinent negative responses have been documented in the HPI. ROS Other: All systems not noted in ROS Statement are negative. Constitutional: Denies: fever Eyes: Denies: eye pain ENT: Denies: ear pain Respiratory: Reports: dyspnea. Denies: cough Cardiovascular: Reports: chest pain Endocrine: Reports: fatigue Gastrointestinal: Reports: abdominal pain (Chronic the patient relates to his chemotherapy. 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 [facility], chronic intermittedt R lower abdominal pain with etiology unknown, NIDDM type II , BPH, rectal bleed, diverticulosis, kidney stones, pt denies any kidney disease other than stones."CHIPPED DISC" d/t faLL IN NOVEMBER Last Myocardial Infarction Date:: 2015, 2018(non q wave) History of Any Multi-Drug Resistant Organisms: None Reported Past Surgical History: Adenoidectomy, Appendectomy, Cholecystectomy, Heart Catheterization With Stent, Hernia Repair, Orthopedic Surgery, Tonsillectomy Additional Past Surgical History / Comment(s): Bilateral carpal tunnel, bone spur removals to bilateral heels and FEET," 8 cardiac STENTS", B/L KNEE BONE SPURS, CATARACTS JA with lens implants, JA INGUINAL HERNIA REPAIR AND UMBILLICAL. removal of malignant tumor from back,EGD 06-04-17, RT LEG SX FOR TORN LIGAMENT."WAS BORN W/ OVERSIZED LIVER HAD SX TO REDUCE IT'S SIZE" Past Anesthesia/Blood Transfusion Reactions: No Reported Reaction Additional Past Anesthesia/Blood Transfusion Reaction / Comment(s): Pt states he has received blood in the past without reaction. Date of Last Stent Placement:: 2017 Past Psychological History: Depression Smoking Status: Former smoker Past Alcohol Use History: None Reported Past Drug Use History: None Reported - Past Family History Father Family Medical History: Myocardial Infarction (RI) Additional Family Medical History / Comment(s): PTBA Mother Family Medical History: CVA/TIA, Diabetes Mellitus Additional Family Medical History / Comment(s): Mother of a CVA at the age of 82 yrs. Brother(s) Family Medical History: Cancer Additional Family Medical History / Comment(s): 2 brothers have MS General Exam Limitations: no limitations General appearance: alert, in no apparent distress Head exam: Present: atraumatic Eye exam: Present: normal appearance Neck exam: Present: normal inspection Respiratory exam: Present: normal lung sounds bilaterally. Absent: chest wall tenderness Cardiovascular Exam: Present: regular rate, normal rhythm Expanded Peripheral pulses: 2+: Radial (R), Radial (L), Posterior Tibialis (R), Posterior Tibialis (L) GI/Abdominal exam: Present: soft. Absent: distended, tenderness Extremities exam: Present: normal inspection. Absent: pedal edema, calf tenderness Neurological exam: Present: alert Psychiatric exam: Present: normal affect, normal mood Skin exam: Present: normal color Course Vital Signs 12/16/18 12/16/18 12/16/18 11:07 11:31 12:00 Temperature 98.2 F Pulse Rate 108 H 101 H 87 Respiratory 18 8 L 14 Rate Blood Pressure 102/62 134/60 O2 Sat by Pulse 99 99 Oximetry 12/16/18 12/16/18 12/16/18 12:05 12:30 13:00 Temperature Pulse Rate 82 Respiratory 18 0 L Rate Blood Pressure 104/42 104/42 O2 Sat by Pulse 88 L Oximetry 12/16/18 12/16/18 12/16/18 13:30 14:00 14:30 Temperature Pulse Rate 87 97 79 Respiratory 14 12 7 L Rate Blood Pressure 112/64 117/64 147/92 O2 Sat by Pulse 85 L 100 Oximetry EKG Findings - EKG Comments: EKG Findings:: Sinus tachycardia 104. CA 164. QRS 96. QT 334. QTC 439. Normal axis. Normal QRS. Nonspecific ST-T. Medical Decision Making - Medical Decision Making Patient reevaluated and still having discomfort. Patient will be provided dose of morphine. Case was discussed in detail with Dr. Martinez who will consult. He recommends ready 1 unit of irradiated blood. Case was also discussed with practitioner Kassie, covering for Dr. Adamson, who will admit. - Lab Data Result diagrams: 12/16/18 11:29 12/16/18 11:29 Lab Results 12/16/18 12/16/18 12/16/18 Range/Units 11:29 11:29 11:29 WBC 0.3 L* (3.8-10.6) k/uL RBC 2.21 L (4.30-5.90) m/uL Hgb 7.0 L (13.0-17.5) gm/dL Hct 20.1 L (39.0-53.0) % MCV 91.2 (80.0-100.0) fL MCH 31.8 (25.0-35.0) pg MCHC 34.8 (31.0-37.0) g/dL RDW 14.8 (11.5-15.5) % Plt Count 22 L (150-450) k/uL Differential Comment Poikilocytosis (manual Present Anisocytosis (manual) Present Ovalocytes Present Rouleaux Present PT (9.0-12.0) sec INR (<1.2) APTT (22.0-30.0) sec Sodium 137 (137-145) mmol/L Potassium 4.0 (3.5-5.1) mmol/L Chloride 107 (98-107) mmol/L Carbon Dioxide 21 L (22-30) mmol/L Anion Gap 9 mmol/L BUN 20 (9-20) mg/dL Creatinine 1.43 H (0.66-1.25) mg/dL Est GFR (CKD-EPI)AfAm 57 (>60 ml/min/1.73 sqM) Est GFR (CKD-EPI)NonAf 49 (>60 ml/min/1.73 sqM) Glucose 177 H (74-99) mg/dL Calcium 8.3 L (8.4-10.2) mg/dL Magnesium 1.5 L (1.6-2.3) mg/dL Total Bilirubin 0.9 (0.2-1.3) mg/dL AST 22 (17-59) U/L ALT 34 (21-72) U/L Alkaline Phosphatase 67 (38-126) U/L Total Creatine Kinase 75 (55-170) U/L CK-MB (CK-2) 1.1 (0.0-2.4) ng/mL CK-MB (CK-2) Rel Index 1.5 Troponin I <0.012 (0.000-0.034) ng/mL NT-Pro-B Natriuret Pep pg/mL Total Protein 5.7 L (6.3-8.2) g/dL Albumin 3.3 L (3.5-5.0) g/dL Amylase <30 L (30-110) U/L Lipase 48 (23-300) U/L Stool Occult Blood (Negative) 12/16/18 12/16/18 12/16/18 Range/Units 11:29 11:29 11:31 WBC (3.8-10.6) k/uL RBC (4.30-5.90) m/uL Hgb (13.0-17.5) gm/dL Hct (39.0-53.0) % MCV (80.0-100.0) fL MCH (25.0-35.0) pg MCHC (31.0-37.0) g/dL RDW (11.5-15.5) % Plt Count (150-450) k/uL Differential Comment Poikilocytosis (manual Anisocytosis (manual) Ovalocytes Rouleaux PT 11.8 (9.0-12.0) sec INR 1.1 (<1.2) APTT 25.3 (22.0-30.0) sec Sodium (137-145) mmol/L Potassium (3.5-5.1) mmol/L Chloride (98-107) mmol/L Carbon Dioxide (22-30) mmol/L Anion Gap mmol/L BUN (9-20) mg/dL Creatinine (0.66-1.25) mg/dL Est GFR (CKD-EPI)AfAm (>60 ml/min/1.73 sqM) Est GFR (CKD-EPI)NonAf (>60 ml/min/1.73 sqM) Glucose (74-99) mg/dL Calcium (8.4-10.2) mg/dL Magnesium (1.6-2.3) mg/dL Total Bilirubin (0.2-1.3) mg/dL AST (17-59) U/L ALT (21-72) U/L Alkaline Phosphatase (38-126) U/L Total Creatine Kinase (55-170) U/L CK-MB (CK-2) (0.0-2.4) ng/mL CK-MB (CK-2) Rel Index Troponin I (0.000-0.034) ng/mL NT-Pro-B Natriuret Pep 251 pg/mL Total Protein (6.3-8.2) g/dL Albumin (3.5-5.0) g/dL Amylase (30-110) U/L Lipase (23-300) U/L Stool Occult Blood Negative (Negative) - Radiology Data Radiology results: image reviewed (Chest x-ray shows no acute process. Abdominal x-ray showed nonobstructive gas pattern.) Disposition Clinical Impression: Chest pain, Anemia Disposition: ADMITTED IP TO THIS HOSP Is patient prescribed a controlled substance at d/c from ED?: No Referrals: Micheal Adamson MD [Primary Care Provider] - 1-2 days Decision Time: 14:56
[2018-12-16 11:58] LABS: HCT 20.1 % (39.0-53.0); MCH 31.8 pg (25.0-35.0); MCHC 34.8 g/dL (31.0-37.0); MCV 91.2 fL (80.0-100.0); Mean Platelet Volume 10.7; RBC 2.21 m/uL (4.30-5.90); RDW 14.8 % (11.5-15.5)
[2018-12-16 12:03] LABS: WBC 0.3 k/uL (3.8-10.6)
[2018-12-16 12:07] LABS: INR 1.1 (<1.2); Partial Thromboplastin Time 25.3 sec (22.0-30.0); Prothrombin Time 11.8 sec (9.0-12.0)
[2018-12-16 12:09] LABS: ALT 34 U/L (21-72); AST 22 U/L (17-59); Albumin 3.3 g/dL (3.5-5.0); Alkaline Phosphatase 67 U/L (38-126); Amylase <30 U/L (30-110); Anion Gap 9 mmol/L; Blood Urea Nitrogen 20 mg/dL (9-20); Calcium 8.3 mg/dL (8.4-10.2); Carbon Dioxide 21 mmol/L (22-30); Chloride 107 mmol/L (98-107); Glucose 177 mg/dL (74-99); Lipase 48 U/L (23-300); Magnesium 1.5 mg/dL (1.6-2.3); Sodium 137 mmol/L (137-145); Total Bilirubin 0.9 mg/dL (0.2-1.3); Total Protein 5.7 g/dL (6.3-8.2)
[2018-12-16 12:15] LABS: Creatine Kinase 75 U/L (55-170)
[2018-12-16 12:29] LABS: Creatine Kinase MB 1.1 ng/mL (0.0-2.4); Troponin I <0.012 ng/mL (0.000-0.034)
[2018-12-16 12:32] LABS: Anisocytosis (M) Present; Ovalocytes Present; Platelet Count 22 k/uL (150-450); Poikilocytosis (M) Present
[2018-12-16 12:33] LABS: Rouleaux Present
--- NOTE | 2018-12-16 12:38 | XR ---
EXAMINATION TYPE: XR abdomen 1V DATE OF EXAM: 12/16/2018 COMPARISON: NONE HISTORY: Pain TECHNIQUE: Single supine KUB image of the abdomen is obtained FINDINGS: Small bowel demonstrates no evidence for dilatation or air fluid levels. Gas and fecal material is seen in non-distended colon. No convincing evidence for pneumoperitoneum. No unusual calcifications. The lung bases are clear. The osseous structures are intact. IMPRESSION: 1. Overall nonobstructive bowel gas pattern.
--- NOTE | 2018-12-16 12:39 | XR ---
EXAMINATION TYPE: XR chest 2V DATE OF EXAM: 12/16/2018 COMPARISON: December 05, 2018 HISTORY: Shortness of breath TECHNIQUE: Frontal and lateral views of the chest are obtained. FINDINGS: Scattered senescent parenchymal changes noted. Hyperinflation compatible with COPD. No evidence for infiltrate. No evidence for atelectasis. Heart size is stable. Mediastinal structures are stable and grossly unremarkable. No evidence for hilar prominence. Degenerative changes dorsal spine. IMPRESSION: 1. No evidence for acute pulmonary disease.
[2018-12-16] MEDS ORDERED: MORPHINE SULFATE 4 MG/ML SYRINGE IVP STA (14:47)
[2018-12-16] MEDS ORDERED: NITROGLYCERIN SL TABS 0.4 MG TAB SUBLINGUAL PRN ×2 (14:57→15:18)
[2018-12-16] MEDS ORDERED: clonazePAM 0.5 MG TAB PO PRN (15:18)
[2018-12-16] MEDS ORDERED: ACETAMINOPHEN TAB 500 MG TAB PO PRN (15:18)
[2018-12-16] MEDS ORDERED: HYDROcodone/APAP 5-325MG 1 EACH TAB PO PRN (15:18)
[2018-12-16] MEDS: METOPROLOL SUCCINATE (ER) 100 MG TAB.ER.24H PO SCH (16:07)
[2018-12-16 17:56] LABS: Creatine Kinase 68 U/L (55-170)
[2018-12-16 18:10] LABS: Creatine Kinase MB 1.1 ng/mL (0.0-2.4); Troponin I <0.012 ng/mL (0.000-0.034)
[2018-12-16] MEDS: TICAGRELOR 90 MG TAB PO SCH (20:51)
[2018-12-16 20:57] LABS: Glucose,Whole Blood 154 mg/dL (75-99)
[2018-12-16] MEDS ORDERED: GABAPENTIN 100 MG CAP PO SCH (21:00)
[2018-12-16] MEDS ORDERED: ATORVASTATIN 80 MG TAB PO SCH (21:00)
[2018-12-16] MEDS ORDERED: POLYETHYLENE GLYCOL 3350 17 GM POWD.PACK PO SCH (21:00)
[2018-12-16 22:36] LABS: Cholesterol 52 mg/dL (<200); HDL Cholesterol 27 mg/dL (40-60); LDL Cholesterol,Calculated 11 mg/dL (0-99); Triglycerides 69 mg/dL (<150)
--- NOTE | 2018-12-16 22:41 | P.HPIM ---
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 Patient says that he became severely short of breath when he went upstairs with laundry. Patient felt chest tightness this is was short of breath radiating down the right groin area. No associated nausea vomiting or diaphoresis. Denied any recent illnesses. No fever no chills. No cough or sputum production. Patient is following with Dr. Vieyra and also Dr. evans at [facility]. Patient was planning to get chemotherapy restarted in near future. Denied any orthopnea or PND. No leg swelling. Chest x-ray showed no acute cardio pulmonary process EKG showed sinus tachycardia WBC 0.3 and hemoglobin 7.0 platelets 22,000 Creatinine 1.43 and magnesium 1.5 Troponin 2 negative BNP 251 Review of Systems Constitutional: Patient denies any fever or chills . No generalized weakness or weight loss. Abdomen: Patient denied nausea vomiting and diarrhea and abdominal pain. Cardiovascular: Chest tightness/pain associated with shortness of breath. No leg swelling Respiratory: patient denied any cough is from production. No shortness of breath Neurologic: Patient denied any numbness or tingling headache. Musculoskeletal: Patient denies any complaints of joint swelling or deformity. Skin: Negative Psychiatric: Negative Endocrine: No heat or cold intolerance. No recent weight gain. Genitourinary: No dysuria or hematuria. 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 [facility], chronic intermittedt R lower abdominal pain with etiology unknown, NIDDM type II , BPH, rectal bleed, diverticulosis, kidney stones, pt denies any kidney disease other than stones."CHIPPED DISC" d/t faLL IN NOVEMBER Last Myocardial Infarction Date:: 2017(non q wave) History of Any Multi-Drug Resistant Organisms: None Reported Past Surgical History: Adenoidectomy, Appendectomy, Cholecystectomy, Heart Catheterization With Stent, Hernia Repair, Orthopedic Surgery, Tonsillectomy Additional Past Surgical History / Comment(s): Bilateral carpal tunnel, bone spur removals to bilateral heels and FEET," 8 cardiac STENTS", B/L KNEE BONE SPURS, CATARACTS JA with lens implants, JA INGUINAL HERNIA REPAIR AND UMBILLICAL. removal of malignant tumor from back,EGD 06-04-17, RT LEG SX FOR TORN LIGAMENT."WAS BORN W/ OVERSIZED LIVER HAD SX TO REDUCE IT'S SIZE" Past Anesthesia/Blood Transfusion Reactions: No Reported Reaction Additional Past Anesthesia/Blood Transfusion Reaction / Comment(s): Pt states he has received blood in the past without reaction. Date of Last Stent Placement:: 2017 Past Psychological History: Depression Smoking Status: Former smoker Past Alcohol Use History: None Reported Past Drug Use History: None Reported - Past Family History Father Family Medical History: Myocardial Infarction (SC) Additional Family Medical History / Comment(s): PTBA Mother Family Medical History: CVA/TIA, Diabetes Mellitus Additional Family Medical History / Comment(s): Mother of a CVA at the age of 82 yrs. Brother(s) Family Medical History: Cancer Additional Family Medical History / Comment(s): 2 brothers have MS Medications and Allergies Home Medications Medication Instructions Recorded Confirmed Type Dicyclomine HCl 20 mg PO DAILY 05/24/14 12/16/18 History Levothyroxine Sodium [Synthroid] 100 mcg PO DAILY 05/24/14 12/16/18 History Omeprazole 40 mg PO DAILY 05/24/14 12/16/18 History Tamsulosin [Flomax] 0.4 mg PO DAILY 10/11/16 12/16/18 History amLODIPine [Norvasc] 5 mg PO DAILY 10/11/16 12/16/18 History Gabapentin [Neurontin] 100 mg PO HS 01/26/18 12/16/18 History clonazePAM [KlonoPIN] 0.5 mg PO DAILY PRN 01/26/18 12/16/18 History Atorvastatin [Lipitor] 80 mg PO HS #30 tab 07/31/18 12/16/18 Rx Isosorbide Mononitrate ER [Imdur] 30 mg PO DAILY #30 tab.er.24h 07/31/18 Rx Nitroglycerin Sl Tabs [Nitrostat] 0.4 mg SUBLINGUAL Q5M PRN #25 tab 07/31/18 Rx Ticagrelor [Brilinta] 90 mg PO BID #60 tab 07/31/18 12/16/18 Rx metFORMIN HCL 1,000 mg PO DAILY #0 07/31/18 12/16/18 Rx Docusate [Colace] 100 mg PO DAILY #20 capsule 09/01/18 12/16/18 Rx Metoprolol Succinate [Toprol Xl] 100 mg PO DAILY 11/26/18 12/16/18 History Acyclovir [Zovirax] 400 mg PO BID 12/05/18 12/16/18 History Magnesium Oxide 400 mg PO DAILY 12/05/18 12/16/18 History Nortriptyline [Pamelor] 25 mg PO DAILY 12/05/18 12/16/18 History Ondansetron [Zofran] 4 mg PO Q8H 12/05/18 12/16/18 History Acetaminophen Tab [Tylenol] 1,000 mg PO Q6HR PRN tab 12/08/18 12/16/18 Rx HYDROcodone/APAP 5-325MG [[place] 2 each PO Q6HR PRN tab 12/08/18 12/16/18 Rx 5-325] Polyethylene Glycol 3350 [Miralax] 17 gm PO HS powd.pack 12/08/18 12/16/18 Rx Venetoclax [Venclexta] 200 mg PO DAILY 12/16/18 12/16/18 History Allergies Allergy/AdvReac Type Severity Reaction Status Date / Time No Known Allergies Allergy Verified 12/16/18 11:34 Physical Exam Vitals: Vital Signs Temp Pulse Resp BP Pulse Ox 12/16/18 14:30 79 7 L 147/92 100 12/16/18 14:00 97 12 117/64 12/16/18 13:30 87 14 112/64 85 L 12/16/18 13:00 82 0 L 104/42 88 L 12/16/18 12:30 104/42 12/16/18 12:05 18 12/16/18 12:00 87 14 134/60 99 12/16/18 11:31 101 H 8 L 12/16/18 11:07 98.2 F 108 H 18 102/62 99 Intake and Output 12/16/18 12/16/18 12/16/18 06:59 14:59 22:59 Other: Weight 101.605 kg PHYSICAL EXAMINATION: Patient is lying in the bed comfortably, no acute distress, awake alert and oriented.. HEENT: Normocephalic. Neck is supple. Pupils reactive. Nostrils clear. Oral cavity is moist. Ears reveal no drainage. Neck reveals no JVD, carotid bruits, or thyromegaly. CHEST EXAMINATION: Trachea is central. Symmetrical expansion. Bibasilar diminished air entry. Lung sellers clear to auscultation and percussion. CARDIAC: Normal S1, S2 with no gallops. No murmurs ABDOMEN: Soft. Bowel sounds normal. No organomegaly. No abdominal bruits. Extremities: reveal no edema. No clubbing or cyanosis Neurologically awake, alert, oriented x3 with well-coordinated movements. No focal deficits noted Skin: No rash or skin lesions. Psychiatric: Coperative. Nonsuicidal Musculoskeletal: No joint swelling or deformity. Normal range of motion. Results CBC & Chem 7: 12/16/18 11:29 12/16/18 11:29 Labs: Abnormal Lab Results - Last 24 Hours (Table) 12/16/18 12/16/18 Range/Units 11:29 11:29 WBC 0.3 L* (3.8-10.6) k/uL RBC 2.21 L (4.30-5.90) m/uL Hgb 7.0 L (13.0-17.5) gm/dL Hct 20.1 L (39.0-53.0) % Plt Count 22 L (150-450) k/uL Carbon Dioxide 21 L (22-30) mmol/L Creatinine 1.43 H (0.66-1.25) mg/dL Glucose 177 H (74-99) mg/dL Calcium 8.3 L (8.4-10.2) mg/dL Magnesium 1.5 L (1.6-2.3) mg/dL Total Protein 5.7 L (6.3-8.2) g/dL Albumin 3.3 L (3.5-5.0) g/dL Amylase <30 L (30-110) U/L Thrombosis Risk Factor Assmnt - DVT/VTE Prophylaxis DVT/VTE Prophylaxis: Pharmacologic Prophylaxis ordered Assessment and Plan Assessment: Exertional shortness of breath and chest tightness/pain is multifactorial with underlying CAD and severe anemia. Rule out ACS. symptomatic anemia Pancytopenia secondary to chemo therapy AML currently on oral therapy Acute kidney injury History of coronary artery disease with stent placement x 9 Hypertension Diabetes type 2 History of SC Osteoarthritis Hypothyroidism Chronic intermittent right lower abdominal pain BPH History of rectal bleed History of renal stones Chronic back pain Depression Previous history of smoking Plan: Patient will be continued on telemetry monitoring. Serial EKGs and troponins. Transfuse PRBC and platelets as needed. Continue with aspirin statins and beta blockers. Cardiology and oncology was consulted. Continue the home medications and pain management. Further recommendations based on the clinical course. Prognosis is guarded with multiple medical problems and underlying comorbid conditions. Time with Patient: Greater than 30
[2018-12-17 00:14] LABS: Creatine Kinase 62 U/L (55-170)
[2018-12-17 00:27] LABS: Creatine Kinase MB 0.9 ng/mL (0.0-2.4); Troponin I <0.012 ng/mL (0.000-0.034)
[2018-12-17] MEDS ORDERED: LEVOTHYROXINE 100 MCG TAB PO SCH (06:30)
[2018-12-17 06:38] LABS: Glucose,Whole Blood 118 mg/dL (75-99)
--- NOTE | 2018-12-17 07:40 | ECHOF ---
Referral Reason:Chest pain MEASUREMENTS -------- HEIGHT: 182.9 cm WEIGHT: 101.6 kg BP: RVIDd: 2.9 cm (< 3.3) IVSd: 1.1 cm (0.6 - 1.1) LVIDd: 4.5 cm (3.9 - 5.3) LVPWd: 1.5 cm (0.6 - 1.1) IVSs: 1.4 cm LVIDs: 3.2 cm LVPWs: 1.4 cm LA Diam: 4.6 cm (2.7 - 3.8) LAESV Index (A-L): 34.51 ml/m Ao Diam: 3.5 cm (2.0 - 3.7) AV Cusp: 1.5 cm (1.5 - 2.6) LA Diam: 4.4 cm (2.7 - 3.8) MV EXCURSION: 13.536 mm (> 18.000) MV EF SLOPE: 83 mm/s (70 - 150) EPSS: 0.7 cm MV E Ever: 0.82 m/s MV DecT: 180 ms MV A Ever: 0.92 m/s MV E/A Ratio: 0.89 AV maxP.07 mmHg AV meanP.25 mmHg AR PHT: 376 ms RAP: 5.00 mmHg RVSP: 16.50 mmHg FINDINGS -------- Sinus rhythm. This was a technically adequate study. The left ventricular size is normal. There is mild concentric left ventricular hypertrophy. Overa ll left ventricular systolic function is normal with, an EF between 55 - 60 %. The right ventricle is normal in size. The left atrium is moderately dilated. LA is moderately dilated 34-39 ml/m2 The right atrial size is normal. There is mild aortic regurgitation. There is mild aortic stenosis present. Peak/mean gradient acr oss the Aortic Valve is 29.07mmHg / 15.25mmHg. Mild mitral annular calcification present. Osan-ju-hcktqyjr mitral regurgitation is present. Mild tricuspid regurgitation present. There is no evidence of pulmonary hypertension. The right v entricular systolic pressure, as measured by Doppler, is 16.50mmHg. There is no pulmonic regurgitation present. The aortic root size is normal. There is no pericardial effusion. CONCLUSIONS -------- 1. The left ventricular size is normal. 2. There is mild concentric left ventricular hypertrophy. 3. Overall left ventricular systolic function is normal with, an EF between 55 - 60 %. 4. The right ventricle is normal in size. 5. The left atrium is moderately dilated. 6. LA is moderately dilated 34-39 ml/m2 7. The right atrial size is normal. 8. There is mild aortic regurgitation. 9. There is mild aortic stenosis present. 10. Peak/mean gradient across the Aortic Valve is 29.07mmHg / 15.25mmHg. 11. Mild mitral annular calcification present. 12. Seng-du-ajgxtbif mitral regurgitation is present. 13. Mild tricuspid regurgitation present. 14. There is no evidence of pulmonary hypertension. 15. The right ventricular systolic pressure, as measured by Doppler, is 16.50mmHg. 16. There is no pulmonic regurgitation present. 17. The aortic root size is normal. 18. There is no pericardial effusion. SUPERVISOR RECORDS CHANGE: Shantel Roy RDCS
[2018-12-17 07:56] LABS: HCT 21.8 % (39.0-53.0); HGB 7.2 gm/dL (13.0-17.5); MCH 29.8 pg (25.0-35.0); MCV 90.5 fL (80.0-100.0); Mean Platelet Volume 10.5; RBC 2.41 m/uL (4.30-5.90); RDW 15.3 % (11.5-15.5)
[2018-12-17 08:06] LABS: Platelet Count 23 k/uL (150-450); WBC 0.3 k/uL (3.8-10.6)
[2018-12-17] MEDS: TICAGRELOR 90 MG TAB PO SCH (08:33)
--- NOTE | 2018-12-17 08:38 | CONS ---
CONSULTATION CHIEF COMPLAINT: Chest pain. This is a 73-year-old gentleman with history of coronary artery disease, status post prior angioplasty, hypertension, diabetes, acute myeloid leukemia, osteoarthritis, who is currently receiving chemotherapy, presented to hospital complaining of chest pain and shortness of breath. His hemoglobin was low at 7, white cell count is low at 0.3. The patient has received blood transfusion following which he is feeling better. At the time of my evaluation this morning, he is chest pain-free, hemodynamically stable and in no apparent distress. Cardiac enzymes have been negative. His chest pain is probably related to the profound anemia. He is not a candidate for invasive angiography at this time. We will treat him with optimal medical therapy with Lipitor, Toprol and continue the Brilinta that he is currently on. PAST MEDICAL HISTORY: Significant for pun-fkguuqj-tpfwmshts diabetes, hypertension, hypothyroidism, coronary artery disease, status post multivessel angioplasty and acute myeloid leukemia. MEDICATIONS: Medications include Klonopin, Norvasc, Brilinta, Flomax, MiraLAX, Zofran, omeprazole, Pamelor, Toprol-XL 100 q. daily, Synthroid, Imdur, Neurontin, Colace, Lipitor, Zovirax. ALLERGIES: No known drug allergies. FAMILY HISTORY: Negative for premature coronary artery disease. SOCIAL HISTORY: Negative for current smoking, EtOH abuse, or drug abuse. REVIEW OF SYSTEMS: HEENT is unremarkable. CARDIAC: As described above. RESPIRATORY: Negative. GI: Negative. GENITOURINARY: Negative. ALLERGY/IMMUNOLOGY: Negative. SKIN: Negative. MUSCULOSKELETAL: Significant for arthritis. PSYCHOSOCIAL: Negative. ENDOCRINE: Negative. DERM: Negative. CONSTITUTIONAL: Negative. ONCOLOGICAL: Negative. Rest of the systems review is not relevant. PHYSICAL EXAMINATION: On exam, patient is comfortable at rest. Vital signs are stable. There is no jugular venous distention. Carotid upstroke is normal. There is no bruit. Chest exam reveals good air entry bilaterally. Heart exam reveals first and second heart sounds. An ejection systolic murmur in the aortic area. Abdomen is soft. Examination of extremities did not reveal edema. Peripheral pulses are felt. LABS: Labs show that 2 sets of troponins are negative. Echocardiogram shows normal LV function with mild aortic stenosis. EKG shows sinus tachycardia with nonspecific ST-T wave changes. Cardiac enzymes have been negative. ASSESSMENT: 1. Pericardial chest pain. 2. Coronary artery disease, status post multivessel angioplasty. 3. Symptomatic anemia. 4. History of multivessel angioplasty. 5. Acute myeloid leukemia. PLAN: I will continue with the current medical therapy. Patient does not need any invasive angiography at this time. His chest discomfort is probably related to supply-demand mismatch. Once the blood transfusion is done, hemoglobin is stable if he is still having symptoms we may consider further evaluation once his counts become more stable from chemotherapy. MMODL / IJN: [id number] /
[2018-12-17] MEDS ORDERED: ISOSORBIDE MONONITRATE ER 30 MG TAB.ER.24H PO SCH (09:00)
[2018-12-17] MEDS ORDERED: TAMSULOSIN 0.4 MG CAP.ER.24H PO SCH (09:00)
[2018-12-17] MEDS ORDERED: DOCUSATE 100 MG CAP PO SCH (09:00)
[2018-12-17] MEDS ORDERED: NORTRIPTYLINE 25 MG CAP PO SCH (09:00)
[2018-12-17] MEDS ORDERED: DICYCLOMINE 20 MG TAB PO SCH (09:00)
[2018-12-17] MEDS ORDERED: amLODIPine 5 MG TAB PO SCH (09:00)
[2018-12-17] MEDS ORDERED: VENCLEXTA PO SCH (09:00)
[2018-12-17] MEDS ORDERED: metFORMIN 500 MG TAB PO SCH (09:00)
[2018-12-17] MEDS ORDERED: MAGNESIUM OXIDE 400 MG TAB PO SCH (09:00)
[2018-12-17] MEDS ORDERED: PANTOPRAZOLE 40 MG TABLET PO SCH (09:00)
[2018-12-17 09:15] LABS: Anisocytosis (M) Present; Ovalocytes Present; Poikilocytosis (M) Present; Polychromasia Present
[2018-12-17 09:16] VITALS: RESP 18
[2018-12-17] MEDS: METOPROLOL SUCCINATE (ER) 100 MG TAB.ER.24H PO SCH (09:34)
--- NOTE | 2018-12-17 11:07 | P.PN ---
Subjective Patient resting in bed denies any further chest pain. Cleared by cardiology. Patient has been transfused 1 unit awaiting orders from Dr. Vieyra for further treatment or plan for discharge Objective - Vital Signs Vital signs: Vital Signs Temp 98.5 F 12/17/18 07:00 Pulse 70 12/17/18 07:00 Resp 18 12/17/18 07:00 BP 95/58 12/17/18 07:00 Pulse Ox 100 12/17/18 07:00 Intake & Output 12/16/18 12/17/18 12/17/18 18:59 06:59 18:59 Intake Total 240 250 Balance 240 250 Weight 101.605 kg Intake: Oral 240 Blood Product 250 Rc Irr Cpda1 Unit 250 [id number] Other: Voiding Method Toilet Toilet # Voids 3 - Constitutional General appearance: Present: mild distress - EENT Eyes: Present: PERRLA Ears: bilateral: normal - Neck Neck: Present: normal ROM - Respiratory Respiratory: bilateral: CTA - Cardiovascular Rhythm: regular Abnormal Heart Sounds: Present: systolic murmur - Gastrointestinal General gastrointestinal: Present: soft - Integumentary Integumentary Comment(s): Areas of ecchymosis to arm and abdomen Integumentary: Present: normal - Neurologic Neurologic: Present: CNII-XII intact - Musculoskeletal Musculoskeletal: Present: generalized weakness - Labs CBC & Chem 7: 12/17/18 07:40 12/16/18 11:29 Labs: Abnormal Lab Results - Last 24 Hours (Table) 12/16/18 12/16/18 12/16/18 Range/Units 11:29 11:29 11:29 WBC 0.3 L* (3.8-10.6) k/uL RBC 2.21 L (4.30-5.90) m/uL Hgb 7.0 L (13.0-17.5) gm/dL Hct 20.1 L (39.0-53.0) % Plt Count 22 L (150-450) k/uL Carbon Dioxide 21 L (22-30) mmol/L Creatinine 1.43 H (0.66-1.25) mg/dL Glucose 177 H (74-99) mg/dL POC Glucose (mg/dL) (75-99) mg/dL Calcium 8.3 L (8.4-10.2) mg/dL Magnesium 1.5 L (1.6-2.3) mg/dL Total Protein 5.7 L (6.3-8.2) g/dL Albumin 3.3 L (3.5-5.0) g/dL HDL Cholesterol (40-60) mg/dL Amylase <30 L (30-110) U/L Crossmatch See Detail 12/16/18 12/16/18 12/17/18 Range/Units 11:29 20:56 06:36 WBC (3.8-10.6) k/uL RBC (4.30-5.90) m/uL Hgb (13.0-17.5) gm/dL Hct (39.0-53.0) % Plt Count (150-450) k/uL Carbon Dioxide (22-30) mmol/L Creatinine (0.66-1.25) mg/dL Glucose (74-99) mg/dL POC Glucose (mg/dL) 154 H 118 H (75-99) mg/dL Calcium (8.4-10.2) mg/dL Magnesium (1.6-2.3) mg/dL Total Protein (6.3-8.2) g/dL Albumin (3.5-5.0) g/dL HDL Cholesterol 27 L (40-60) mg/dL Amylase (30-110) U/L Crossmatch 12/17/18 Range/Units 07:40 WBC 0.3 L* (3.8-10.6) k/uL RBC 2.41 L (4.30-5.90) m/uL Hgb 7.2 L (13.0-17.5) gm/dL Hct 21.8 L (39.0-53.0) % Plt Count 23 L (150-450) k/uL Carbon Dioxide (22-30) mmol/L Creatinine (0.66-1.25) mg/dL Glucose (74-99) mg/dL POC Glucose (mg/dL) (75-99) mg/dL Calcium (8.4-10.2) mg/dL Magnesium (1.6-2.3) mg/dL Total Protein (6.3-8.2) g/dL Albumin (3.5-5.0) g/dL HDL Cholesterol (40-60) mg/dL Amylase (30-110) U/L Crossmatch - Imaging and Cardiology Chest x-ray: report reviewed Abdominal x-ray: report reviewed Assessment and Plan Plan: Assessment Chest pain secondary to anemia Anemia secondary to chemotherapy related AML Pancytopenia Acute renal failure History of coronary disease with SC 1 Diabetes type 2 GERD Hypertension BPH Plan Cleared by cardiology Awaiting plan for discharge from Dr. Vieyra
[2018-12-17 11:50] LABS: Glucose,Whole Blood 120 mg/dL (75-99)
[2018-12-17 12:56] VITALS: BP 132/71; PULSE 72; TEMP 98.8
--- NOTE | 2018-12-17 15:59 | P.DS ---
Providers Date of admission: 12/16/18 14:57 Expected date of discharge: 12/17/18 Attending physician: Micheal Adamson Consults: 12/16/18 14:57 Consult Physician Urgent Consulting Provider: Edgar Vieyra Consult Reason/Comments: Anemia, oncological care Do you want consulting provider notified?: Already Contacted Consult Physician Urgent Consulting Provider: Jn Cisse Consult Reason/Comments: cp Do you want consulting provider notified?: Yes Primary care physician: Micheal Adamson Hospital Course: Patient was admitted from ER with chest pain and shortness of breath. Hgb 6 Hx AML Patient was given transfusion and evaluated by cardiology and cleared for discharge. Was seen by oncology and cleared to follow up in 1 week assessment chest pain secondary to anemia anemia secondary to chemotherapy for AML pancytopenia Hx CAD with OK DM II hypertension plan follow up with oncology [address] Barnes Plan - Discharge Summary Discharge Rx Participant: No New Discharge Prescriptions: Continue Dicyclomine HCl 20 mg PO DAILY Levothyroxine Sodium [Synthroid] 100 mcg PO DAILY Omeprazole 40 mg PO DAILY Tamsulosin [Flomax] 0.4 mg PO DAILY amLODIPine [Norvasc] 5 mg PO DAILY clonazePAM [KlonoPIN] 0.5 mg PO DAILY PRN PRN Reason: Anxiety Gabapentin [Neurontin] 100 mg PO HS Atorvastatin [Lipitor] 80 mg PO HS #30 tab Nitroglycerin Sl Tabs [Nitrostat] 0.4 mg SUBLINGUAL Q5M PRN #25 tab PRN Reason: Chest Pain Ticagrelor [Brilinta] 90 mg PO BID #60 tab Isosorbide Mononitrate ER [Imdur] 30 mg PO DAILY #30 tab.er.24h metFORMIN HCL 1,000 mg PO DAILY #0 Docusate [Colace] 100 mg PO DAILY #20 capsule Metoprolol Succinate [Toprol Xl] 100 mg PO DAILY Magnesium Oxide 400 mg PO DAILY Nortriptyline [Pamelor] 25 mg PO DAILY Acyclovir [Zovirax] 400 mg PO BID Ondansetron [Zofran] 4 mg PO Q8H Acetaminophen Tab [Tylenol] 1,000 mg PO Q6HR PRN tab PRN Reason: Fever And/ Or Pain HYDROcodone/APAP 5-325MG [[place] 5-325] 2 each PO Q6HR PRN tab PRN Reason: Pain Polyethylene Glycol 3350 [Miralax] 17 gm PO HS powd.pack Venetoclax [Venclexta] 200 mg PO DAILY Discharge Medication List Dicyclomine HCl 20 mg PO DAILY 05/24/14 [History] Levothyroxine Sodium [Synthroid] 100 mcg PO DAILY 05/24/14 [History] Omeprazole 40 mg PO DAILY 05/24/14 [History] Tamsulosin [Flomax] 0.4 mg PO DAILY 10/11/16 [History] amLODIPine [Norvasc] 5 mg PO DAILY 10/11/16 [History] Gabapentin [Neurontin] 100 mg PO HS 01/26/18 [History] clonazePAM [KlonoPIN] 0.5 mg PO DAILY PRN 01/26/18 [History] Atorvastatin [Lipitor] 80 mg PO HS #30 tab 07/31/18 [Rx] Isosorbide Mononitrate ER [Imdur] 30 mg PO DAILY #30 tab.er.24h 07/31/18 [Rx] Nitroglycerin Sl Tabs [Nitrostat] 0.4 mg SUBLINGUAL Q5M PRN #25 tab 07/31/18 [Rx ] Ticagrelor [Brilinta] 90 mg PO BID #60 tab 07/31/18 [Rx] metFORMIN HCL 1,000 mg PO DAILY #0 07/31/18 [Rx] Docusate [Colace] 100 mg PO DAILY #20 capsule 09/01/18 [Rx] Metoprolol Succinate [Toprol Xl] 100 mg PO DAILY 11/26/18 [History] Acyclovir [Zovirax] 400 mg PO BID 12/05/18 [History] Magnesium Oxide 400 mg PO DAILY 12/05/18 [History] Nortriptyline [Pamelor] 25 mg PO DAILY 12/05/18 [History] Ondansetron [Zofran] 4 mg PO Q8H 12/05/18 [History] Acetaminophen Tab [Tylenol] 1,000 mg PO Q6HR PRN tab 12/08/18 [Rx] HYDROcodone/APAP 5-325MG [[place] 5-325] 2 each PO Q6HR PRN tab 12/08/18 [Rx] Polyethylene Glycol 3350 [Miralax] 17 gm PO HS powd.pack 12/08/18 [Rx] Venetoclax [Venclexta] 200 mg PO DAILY 12/16/18 [History] Follow up Appointment(s)/Referral(s): Micheal Adamson MD [Primary Care Provider] - 1-2 days Edgar Vieyra MD [STAFF PHYSICIAN] - 1 Week Patient Instructions/Handouts: Chest Pain (GEN)
--- NOTE | 2018-12-17 21:13 | P.CONS ---
History of Present Illness - Reason for Consult Consult date: 12/17/18 AML Requesting physician: Micheal Adamson - Chief Complaint SOB - History of Present Illness Mr Ling is a pleasant WM, initially seen in consult at [facility] on 02/25/15. He had presented with s/s s/o diverticulitis. Routine CBC noted a pancytopenia with WBC 1.9, plt 128 and Hgb 8.6. CBC in 10/16 had shown a lesser degree of pancytopenia, with WBC 3000, and plt in the 100-150 K range. Her CBC this visit showed a left shift, with few circulating blasts. A bone marrow was done on 03/01 and the pt subsequently discharged. He was actually admitted with another episode of diverticulitis, and discharged on antibiotics, which led to resolution. He was seen for his 1st OV on 03/17/15. 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 Typical MDS FISH profile was negative. He was started on Dacogen and had 5 cycles. There was no significant improvement in his WBC, and a marrow was repeated on 08/04/15. This showed essentialy similiar morphology. He was referred to [facility] for possible BMT, and was felt to be a candidate. Continuation of chemo was recommended, till a donor was found, as he was felt to have had a partial response especially with his Hgb. He is now s/p 7 cycles. He underwent allo BMT at the [facility] in 10/17 He did achiever remission and followed there till 10/20. 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 Treatment with Venetoclax and Vidaza was recommended. He wanted to transfer care here and was thus seen back in 11/21. According to recommendations from [facility], the patient was started on Vidaza and Venetoclax. He started cycle 1 on 11/30/18 He was having increased Shortness of Breath, better after transfusion. He was seen and assessed, NO acute distress. No bleeding, afebrile. 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 [facility], chronic intermittedt R lower abdominal pain with etiology unknown, NIDDM type II , BPH, rectal bleed, diverticulosis, kidney stones, pt denies any kidney disease other than stones."CHIPPED DISC" d/t faLL IN NOVEMBER Last Myocardial Infarction Date:: 2017(non q wave) History of Any Multi-Drug Resistant Organisms: None Reported Past Surgical History: Adenoidectomy, Appendectomy, Cholecystectomy, Heart Catheterization With Stent, Hernia Repair, Orthopedic Surgery, Tonsillectomy Additional Past Surgical History / Comment(s): Bilateral carpal tunnel, bone spur removals to bilateral heels and FEET," 8 cardiac STENTS", B/L KNEE BONE SPURS, CATARACTS JA with lens implants, JA INGUINAL HERNIA REPAIR AND UMBILLICAL. removal of malignant tumor from back,EGD 06-04-17, RT LEG SX FOR TORN LIGAMENT."WAS BORN W/ OVERSIZED LIVER HAD SX TO REDUCE IT'S SIZE" Past Anesthesia/Blood Transfusion Reactions: No Reported Reaction Additional Past Anesthesia/Blood Transfusion Reaction / Comm: Pt states he has received blood in the past without reaction. Date of Last Stent Placement:: 2017 Past Psychological History: Depression Smoking Status: Former smoker Past Alcohol Use History: None Reported Past Drug Use History: None Reported - Past Family History Father Family Medical History: Myocardial Infarction ([place]) Additional Family Medical History / Comment(s): PTBA Mother Family Medical History: CVA/TIA, Diabetes Mellitus Additional Family Medical History / Comment(s): Mother of a CVA at the age of 82 yrs. Brother(s) Family Medical History: Cancer Additional Family Medical History / Comment(s): 2 brothers have MS Medications and Allergies Home Medications Medication Instructions Recorded Confirmed Type Dicyclomine HCl 20 mg PO DAILY 05/24/14 12/16/18 History Levothyroxine Sodium [Synthroid] 100 mcg PO DAILY 05/24/14 12/16/18 History Omeprazole 40 mg PO DAILY 05/24/14 12/16/18 History Tamsulosin [Flomax] 0.4 mg PO DAILY 10/11/16 12/16/18 History amLODIPine [Norvasc] 5 mg PO DAILY 10/11/16 12/16/18 History Gabapentin [Neurontin] 100 mg PO HS 01/26/18 12/16/18 History clonazePAM [KlonoPIN] 0.5 mg PO DAILY PRN 01/26/18 12/16/18 History Atorvastatin [Lipitor] 80 mg PO HS #30 tab 07/31/18 12/16/18 Rx Isosorbide Mononitrate ER [Imdur] 30 mg PO DAILY #30 tab.er.24h 07/31/18 Rx Nitroglycerin Sl Tabs [Nitrostat] 0.4 mg SUBLINGUAL Q5M PRN #25 tab 07/31/18 Rx Ticagrelor [Brilinta] 90 mg PO BID #60 tab 07/31/18 12/16/18 Rx metFORMIN HCL 1,000 mg PO DAILY #0 07/31/18 12/16/18 Rx Docusate [Colace] 100 mg PO DAILY #20 capsule 09/01/18 12/16/18 Rx Metoprolol Succinate [Toprol Xl] 100 mg PO DAILY 11/26/18 12/16/18 History Acyclovir [Zovirax] 400 mg PO BID 12/05/18 12/16/18 History Magnesium Oxide 400 mg PO DAILY 12/05/18 12/16/18 History Nortriptyline [Pamelor] 25 mg PO DAILY 12/05/18 12/16/18 History Ondansetron [Zofran] 4 mg PO Q8H 12/05/18 12/16/18 History Acetaminophen Tab [Tylenol] 1,000 mg PO Q6HR PRN tab 12/08/18 12/16/18 Rx HYDROcodone/APAP 5-325MG [[place] 2 each PO Q6HR PRN tab 12/08/18 12/16/18 Rx 5-325] Polyethylene Glycol 3350 [Miralax] 17 gm PO HS powd.pack 12/08/18 12/16/18 Rx Venetoclax [Venclexta] 200 mg PO DAILY 12/16/18 12/16/18 History Allergies Allergy/AdvReac Type Severity Reaction Status Date / Time No Known Allergies Allergy Verified 12/16/18 11:34 Physical Exam Vitals: Vital Signs Temp Pulse Pulse Resp BP BP Pulse Ox 12/17/18 12:00 98.8 F 72 18 132/71 100 12/17/18 07:00 98.5 F 70 18 95/58 100 12/17/18 04:00 98.5 F 74 16 98/51 99 12/17/18 01:43 98.3 F 72 16 126/70 100 12/17/18 01:42 98.3 F 72 16 123/69 99 12/17/18 00:00 98.3 F 77 16 113/62 100 12/16/18 23:54 98.3 F 76 16 129/70 12/16/18 23:24 97.9 F 76 16 127/70 12/16/18 23:14 98.1 F 73 16 139/73 Intake and Output 12/17/18 12/17/18 12/17/18 06:59 14:59 22:59 Intake Total 250 240 Balance 250 240 Intake: Oral 240 Blood Product 250 Rc Irr Cpda1 Unit 250 [id number] Other: Voiding Method Toilet Toilet # Voids 3 Constitutional General appearance: Present: average body habitus, cooperative, no acute distress - EENT Eyes: Present: anicteric sclerae, EOMI ENT: Present: hearing grossly normal, normal oropharynx - Respiratory Respiratory: bilateral: CTA - Cardiovascular Rhythm: regular Heart sounds: normal: S1, S2 Abnormal Heart Sounds: Present: systolic murmur (harsh, >at RSB 3rd ICS, 3/6) - Peripheral edema leg Peripheral Edema: bilateral: None - Gastrointestinal General gastrointestinal: Present: normal bowel sounds, soft. Absent: absent bowel sounds, decreased bowel sounds, distended, hyperactive bowel sounds, organomegaly, rigid, scaphoid, tenderness - Integumentary Integumentary: Present: pale - Neurologic Neurologic: Present: CNII-XII intact - Musculoskeletal Musculoskeletal: Present: generalized weakness, strength equal bilaterally - Psychiatric Psychiatric: Present: A&O x's 3, appropriate affect, intact judgment & insight Results CBC & Chem 7: 12/17/18 07:40 12/16/18 11:29 Labs: Abnormal Lab Results - Last 24 Hours (Table) 12/16/18 12/16/18 12/17/18 Range/Units 11:29 11:29 06:36 WBC (3.8-10.6) k/uL RBC (4.30-5.90) m/uL Hgb (13.0-17.5) gm/dL Hct (39.0-53.0) % Plt Count (150-450) k/uL POC Glucose (mg/dL) 118 H (75-99) mg/dL HDL Cholesterol 27 L (40-60) mg/dL Crossmatch See Detail 12/17/18 12/17/18 Range/Units 07:40 11:48 WBC 0.3 L* (3.8-10.6) k/uL RBC 2.41 L (4.30-5.90) m/uL Hgb 7.2 L (13.0-17.5) gm/dL Hct 21.8 L (39.0-53.0) % Plt Count 23 L (150-450) k/uL POC Glucose (mg/dL) 120 H (75-99) mg/dL HDL Cholesterol (40-60) mg/dL Crossmatch Assessment and Plan Plan: Assessment and Recommendations: 1. AML - - WLikely benefit from transfusion lower than 7.5 - Continue with CBC checks 2-3 times a week and continue supportive transfusions Ok for discharge from oncology standpoint. Physician Attestation: I kishore completed the full history and physical of this patient and agree with above dictation by Jayne Bourgeois NP. Dictated as a scribe.
== END 2018-12-17 16:40 | disposition home or self-care (01) ==
LOC: EC 11:06 → 1SOBS 14:57
PROVIDERS: ADMIT Family Medicine; ATTEND Family Medicine
DX: D61.810 Antineoplastic chemotherapy induced pancytopenia (principal); T45.1X5A Adverse effect of antineoplastic and immunosuppressive drugs, initial encounter; C92.00 Acute myeloblastic leukemia, not having achieved remission; E03.9 Hypothyroidism, unspecified; E11.9 Type 2 diabetes mellitus without complications; F32.9 Major depressive disorder, single episode, unspecified; G89.29 Other chronic pain; I10 Essential (primary) hypertension; I25.10 Atherosclerotic heart disease of native coronary artery without angina pectoris; K21.9 Gastro-esophageal reflux disease without esophagitis; M19.90 Unspecified osteoarthritis, unspecified site; N17.9 Acute kidney failure, unspecified; N40.0 Benign prostatic hyperplasia without lower urinary tract symptoms; Z79.84 Long term (current) use of oral hypoglycemic drugs; Z79.890 Hormone replacement therapy; Z79.899 Other long term (current) drug therapy; Z87.442 Personal history of urinary calculi; Z87.891 Personal history of nicotine dependence; Z91.81 History of falling; Z95.5 Presence of coronary angioplasty implant and graft; Z96.1 Presence of intraocular lens; I25.2 Old myocardial infarction; Z79.02 Long term (current) use of antithrombotics/antiplatelets; Z82.3 Family history of stroke; Z82.49 Family history of ischemic heart disease and other diseases of the circulatory system; Z83.3 Family history of diabetes mellitus
CPT/HCPCS: 36430; 96374; 99285; 36415; 93306; 86900; 86901; 83880; 80061; 80053; 82150; 82550; 82553; 83690; 83735; 84484; 85025 ×2; 85610; 85730; 86850; 86920; 82272; 71046; 74018; G0378 ×2; P9040; J2270

== ENCOUNTER 2019-01-11 15:19 | Emergency (ER) | payer MEDICARE, OTHER ==
[2019-01-11 15:34] VITALS: RESP 16; TEMP 98.3
[2019-01-11] MEDS ORDERED: ONDANSETRON 4 MG/2 ML VIAL IVP STA (16:15)
[2019-01-11] MEDS ORDERED: SODIUM CHLORIDE 0.9% 500 ML 500 ML IV STA (16:15)
[2019-01-11] MEDS ORDERED: MORPHINE SULFATE 4 MG/ML SYRINGE IV STA (16:15)
[2019-01-11] MEDS ORDERED: SODIUM CHLORIDE 0.9% 1,000 ML IV STA ×2 (16:15→19:38)
[2019-01-11] MEDS ORDERED: PANTOPRAZOLE 40 MG/10 ML VIAL IVP STA (16:15)
[2019-01-11 16:36] LABS: Appearance,Urine Clear (Clear); Bilirubin,Urine Negative (Negative); Blood,Urine Negative (Negative); Color,Urine Yellow; Glucose,Urine (UA) Negative (Negative); Ketones,Urine Negative (Negative); Leukocyte Esterase,Urine Negative (Negative); Nitrite,Urine Negative (Negative); PH, Urine 5.5 (5.0-8.0); Protein,Urine Negative (Negative); Specific Gravity,Urine 1.006 (1.001-1.035); Urobilinogen,Urine <2.0 mg/dL (<2.0)
[2019-01-11 16:44] LABS: ALT 35 U/L (21-72); AST 19 U/L (17-59); Albumin 3.4 g/dL (3.5-5.0); Alkaline Phosphatase 77 U/L (38-126); Amylase <30 U/L (30-110); Anion Gap 8 mmol/L; Blood Urea Nitrogen 17 mg/dL (9-20); Calcium 8.2 mg/dL (8.4-10.2); Carbon Dioxide 22 mmol/L (22-30); Chloride 104 mmol/L (98-107); Glucose 128 mg/dL (74-99); Lipase 48 U/L (23-300); Potassium 3.8 mmol/L (3.5-5.1); Sodium 134 mmol/L (137-145); Total Bilirubin 1.3 mg/dL (0.2-1.3); Total Protein 5.9 g/dL (6.3-8.2)
[2019-01-11 16:51] LABS: Anisocytosis Slight; HCT 21.2 % (39.0-53.0); HGB 7.2 gm/dL (13.0-17.5); Hypochromasia Slight; MCH 31.2 pg (25.0-35.0); MCHC 33.7 g/dL (31.0-37.0); MCV 92.5 fL (80.0-100.0); Macrocytosis Slight; Mean Platelet Volume 10.1; Poikilocytosis Slight; RBC 2.29 m/uL (4.30-5.90); RDW 19.1 % (11.5-15.5)
[2019-01-11 17:00] LABS: WBC 0.3 k/uL (3.8-10.6)
--- NOTE | 2019-01-11 17:13 | ED ---
Abdominal Pain HPI - General Chief Complaint: Abdominal Pain Stated Complaint: Abd pain Time Seen by Provider: 01/11/19 16:15 Source: patient, EMS, RN notes reviewed, old records reviewed Mode of arrival: EMS Limitations: no limitations - History of Present Illness Initial Comments: This is a 73-year-old male the ER for eversion of bowel pain. Patient has persistent abdominal pain. Constipation. Prior history of intractable abdominal pain with no known cause. No prior surgical history. No fevers cough or congestion. Decreased bowel movements with nausea. Decreased appetite MD Complaint: abdominal pain -: hour(s) Location: suprapubic Radiation: suprapubic Migration to: suprapubic Severity: moderate Severity scale (1-10): 6 Quality: aching Consistency: constant Improves With: nothing Worsens With: eating Associated Symptoms: nausea - Related Data Home Medications Medication Instructions Recorded Confirmed Dicyclomine HCl 20 mg PO DAILY 05/24/14 01/11/19 Levothyroxine Sodium [Synthroid] 100 mcg PO DAILY 05/24/14 01/11/19 Omeprazole 40 mg PO DAILY 05/24/14 01/11/19 Tamsulosin [Flomax] 0.4 mg PO DAILY 10/11/16 01/11/19 amLODIPine [Norvasc] 5 mg PO DAILY 10/11/16 01/11/19 Gabapentin [Neurontin] 100 mg PO HS 01/26/18 01/11/19 clonazePAM [KlonoPIN] 0.5 mg PO DAILY PRN 01/26/18 01/11/19 Metoprolol Succinate [Toprol Xl] 100 mg PO DAILY 11/26/18 01/11/19 Acyclovir [Zovirax] 400 mg PO BID 12/05/18 01/11/19 Magnesium Oxide 400 mg PO DAILY 12/05/18 01/11/19 Nortriptyline [Pamelor] 25 mg PO DAILY 12/05/18 01/11/19 Ondansetron [Zofran] 4 mg PO Q8H 12/05/18 01/11/19 Venetoclax [Venclexta] 200 mg PO DAILY 12/16/18 01/11/19 Previous Rx's Medication Instructions Recorded Atorvastatin [Lipitor] 80 mg PO HS #30 tab 07/31/18 Isosorbide Mononitrate ER [Imdur] 30 mg PO DAILY #30 tab.er.24h 07/31/18 Nitroglycerin Sl Tabs [Nitrostat] 0.4 mg SUBLINGUAL Q5M PRN #25 tab 07/31/18 Ticagrelor [Brilinta] 90 mg PO BID #60 tab 07/31/18 metFORMIN HCL 1,000 mg PO DAILY #0 07/31/18 Docusate [Colace] 100 mg PO DAILY #20 capsule 09/01/18 Acetaminophen Tab [Tylenol] 1,000 mg PO Q6HR PRN tab 12/08/18 HYDROcodone/APAP 5-325MG [[place] 2 each PO Q6HR PRN tab 12/08/18 5-325] Polyethylene Glycol 3350 [Miralax] 17 gm PO HS powd.pack 12/08/18 Allergies Allergy/AdvReac Type Severity Reaction Status Date / Time No Known Allergies Allergy Verified 01/11/19 16:29 Review of Systems ROS Statement: Those systems with pertinent positive or pertinent negative responses have been documented in the HPI. ROS Other: All systems not noted in ROS Statement are negative. 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 [facility], chronic intermittedt R lower abdominal pain with etiology unknown, NIDDM type II, BPH, rectal bleed, diverticulosis, kidney stones, pt denies any kidney disease other than stones."CHIPPED DISC" d/t faLL IN NOVEMBER Last Myocardial Infarction Date:: 2017(non q wave) History of Any Multi-Drug Resistant Organisms: None Reported Past Surgical History: Adenoidectomy, Appendectomy, Cholecystectomy, Heart Catheterization With Stent, Hernia Repair, Orthopedic Surgery, Tonsillectomy Additional Past Surgical History / Comment(s): Bilateral carpal tunnel, bone spur removals to bilateral heels and FEET," 8 cardiac STENTS", B/L KNEE BONE SPURS, CATARACTS JA with lens implants, JA INGUINAL HERNIA REPAIR AND UMBILLICAL. removal of malignant tumor from back,EGD 06-04-17, RT LEG SX FOR TORN LIGAMENT."WAS BORN W/ OVERSIZED LIVER HAD SX TO REDUCE IT'S SIZE" Past Anesthesia/Blood Transfusion Reactions: No Reported Reaction Additional Past Anesthesia/Blood Transfusion Reaction / Comment(s): Pt states he has received blood in the past without reaction. Date of Last Stent Placement:: 2017 Past Psychological History: Depression Smoking Status: Former smoker Past Alcohol Use History: None Reported Past Drug Use History: None Reported - Past Family History Father Family Medical History: Myocardial Infarction ([place]) Additional Family Medical History / Comment(s): PTBA Mother Family Medical History: CVA/TIA, Diabetes Mellitus Additional Family Medical History / Comment(s): Mother of a CVA at the age of 82 yrs. Brother(s) Family Medical History: Cancer Additional Family Medical History / Comment(s): 2 brothers have MS General Exam Limitations: no limitations General appearance: alert, in no apparent distress Head exam: Present: atraumatic, normocephalic, normal inspection Eye exam: Present: normal appearance, PERRL, EOMI. Absent: scleral icterus, conjunctival injection, periorbital swelling ENT exam: Present: normal exam, mucous membranes moist Neck exam: Present: normal inspection. Absent: tenderness, meningismus, lymphadenopathy Respiratory exam: Present: normal lung sounds bilaterally. Absent: respiratory distress, wheezes, rales, rhonchi, stridor Cardiovascular Exam: Present: regular rate, normal rhythm, normal heart sounds. Absent: systolic murmur, diastolic murmur, rubs, gallop, clicks GI/Abdominal exam: Present: soft, normal bowel sounds. Absent: distended, tenderness, guarding, rebound, rigid Extremities exam: Present: normal inspection, full ROM, normal capillary refill. Absent: tenderness, pedal edema, joint swelling, calf tenderness Back exam: Present: normal inspection Neurological exam: Present: alert, oriented X3, CN II-XII intact Psychiatric exam: Present: normal affect, normal mood Skin exam: Present: warm, dry, intact, normal color. Absent: rash Course Vital Signs 01/11/19 01/11/19 01/11/19 15:31 16:00 17:00 Temperature 98.3 F Pulse Rate 84 Respiratory 16 Rate Blood Pressure 112/78 112/78 122/77 O2 Sat by Pulse 100 Oximetry 01/11/19 01/11/19 01/11/19 18:00 19:00 20:00 Temperature Pulse Rate 85 Respiratory 16 Rate Blood Pressure 121/70 121/70 121/63 O2 Sat by Pulse 99 99 Oximetry - Reevaluation(s) Reevaluation #1: Medical record is reviewed Patient is having abdominal pain. This improved with bowel regimen and pain control Medical Decision Making - Medical Decision Making 73 male the ER without abdominal pain with constipation. CT is otherwise negative. Patient can be discharged home - Lab Data Result diagrams: 01/11/19 16:14 01/11/19 16:14 Lab Results 01/11/19 01/11/19 01/11/19 Range/Units 16:14 16:14 16:14 WBC 0.3 L* (3.8-10.6) k/uL RBC 2.29 L (4.30-5.90) m/uL Hgb 7.2 L (13.0-17.5) gm/dL Hct 21.2 L (39.0-53.0) % MCV 92.5 (80.0-100.0) fL MCH 31.2 (25.0-35.0) pg MCHC 33.7 (31.0-37.0) g/dL RDW 19.1 H (11.5-15.5) % Plt Count 47 L D (150-450) k/uL Neutrophils # [employer]PER[employer] Differential Comment P Manual Slide Review Performed Hypochromasia Slight Poikilocytosis Slight Poikilocytosis (manual Present Anisocytosis Slight Macrocytosis Slight Tear Drop Cells Present Ovalocytes Present Sodium 134 L (137-145) mmol/L Potassium 3.8 (3.5-5.1) mmol/L Chloride 104 (98-107) mmol/L Carbon Dioxide 22 (22-30) mmol/L Anion Gap 8 mmol/L BUN 17 (9-20) mg/dL Creatinine 1.24 (0.66-1.25) mg/dL Est GFR (CKD-EPI)AfAm 68 (>60 ml/min/1.73 sqM) Est GFR (CKD-EPI)NonAf 59 (>60 ml/min/1.73 sqM) Glucose 128 H (74-99) mg/dL Plasma Lactic Acid [place] 1.2 (0.7-2.0) mmol/L Calcium 8.2 L (8.4-10.2) mg/dL Total Bilirubin 1.3 (0.2-1.3) mg/dL AST 19 (17-59) U/L ALT 35 (21-72) U/L Alkaline Phosphatase 77 (38-126) U/L Total Protein 5.9 L (6.3-8.2) g/dL Albumin 3.4 L (3.5-5.0) g/dL Amylase <30 L (30-110) U/L Lipase 48 (23-300) U/L Urine Color Urine Appearance (Clear) Urine pH (5.0-8.0) Ur Specific [place] (1.001-1.035) Urine Protein (Negative) Urine Glucose (UA) (Negative) Urine Ketones (Negative) Urine Blood (Negative) Urine Nitrite (Negative) Urine Bilirubin (Negative) Urine Urobilinogen (<2.0) mg/dL Ur Leukocyte Esterase (Negative) 01/11/19 Range/Units 16:14 WBC (3.8-10.6) k/uL RBC (4.30-5.90) m/uL Hgb (13.0-17.5) gm/dL Hct (39.0-53.0) % MCV (80.0-100.0) fL MCH (25.0-35.0) pg MCHC (31.0-37.0) g/dL RDW (11.5-15.5) % Plt Count (150-450) k/uL Neutrophils # Differential Comment Manual Slide Review Hypochromasia Poikilocytosis Poikilocytosis (manual Anisocytosis Macrocytosis Tear Drop Cells Ovalocytes Sodium (137-145) mmol/L Potassium (3.5-5.1) mmol/L Chloride (98-107) mmol/L Carbon Dioxide (22-30) mmol/L Anion Gap mmol/L BUN (9-20) mg/dL Creatinine (0.66-1.25) mg/dL Est GFR (CKD-EPI)AfAm (>60 ml/min/1.73 sqM) Est GFR (CKD-EPI)NonAf (>60 ml/min/1.73 sqM) Glucose (74-99) mg/dL Plasma Lactic Acid [place] (0.7-2.0) mmol/L Calcium (8.4-10.2) mg/dL Total Bilirubin (0.2-1.3) mg/dL AST (17-59) U/L ALT (21-72) U/L Alkaline Phosphatase (38-126) U/L Total Protein (6.3-8.2) g/dL Albumin (3.5-5.0) g/dL Amylase (30-110) U/L Lipase (23-300) U/L Urine Color Yellow Urine Appearance Clear (Clear) Urine pH 5.5 (5.0-8.0) Ur Specific [place] 1.006 (1.001-1.035) Urine Protein Negative (Negative) Urine Glucose (UA) Negative (Negative) Urine Ketones Negative (Negative) Urine Blood Negative (Negative) Urine Nitrite Negative (Negative) Urine Bilirubin Negative (Negative) Urine Urobilinogen <2.0 (<2.0) mg/dL Ur Leukocyte Esterase Negative (Negative) - Radiology Data Radiology results: report reviewed (CT abdomen pelvis is negative for acute disease), image reviewed Disposition Clinical Impression: Intractable abdominal pain, Abdominal pain, Enlarged prostate with lower urinary tract symptoms (LUTS) Disposition: HOME SELF-CARE Condition: Good Instructions (If sedation given, give patient instructions): Abdominal Pain (ED) Is patient prescribed a controlled substance at d/c from ED?: No Referrals: Micheal Adamson MD [Primary Care Provider] - 1-2 days
[2019-01-11 18:08] LABS: Poikilocytosis (M) Present; Tear Drop Cells Present
[2019-01-11 18:09] LABS: Ovalocytes Present; Platelet Count 47 k/uL (150-450)
--- NOTE | 2019-01-11 18:31 | CT ---
EXAMINATION TYPE: CT abdomen pelvis w con DATE OF EXAM: 01/11/2019 COMPARISON: CT abdomen and pelvis December 06, 2018 HISTORY: ABDOMINAL PAIN TODAY CT DLP: 1047.7 mGycm, Automated Exposure Control for Dose Reduction was Utilized. CONTRAST: CT scan of the abdomen and pelvis is performed without oral but with with IV Contrast, patient inject ed with 100 mL of Isovue 300. FINDINGS: LUNG BASES: Coronary artery calcification and/or stents are redemonstrated. There is limited left bas ilar linear scarring and/or atelectasis. LIVER/GB: Cholecystectomy clips are redemonstrated. PANCREAS: No significant abnormality is seen. SPLEEN: No significant abnormality is seen. ADRENALS: No significant abnormality is seen. KIDNEYS: There are a few small simple appearing cysts scattered throughout both kidneys. BOWEL: No suspicious small or large bowel dilatation. Mild diffuse prominence of fecal material thr oughout the colon particularly the rectum. PROSTATE/SEMINAL VESICLES: Central calcifications are seen. LYMPH NODES: No greater than 1cm abdominal or pelvic lymph nodes are appreciated. OSSEOUS STRUCTURES: Moderate to severe multilevel spurring in the visualized thoracic spine. Facet ar thropathy lower lumbar levels is noted. OTHER: No significant additional abnormality is seen. IMPRESSION: Perhaps persistent mild to moderate diffuse colonic fecal stasis. No bowel obstruction. No significant acute finding otherwise is seen to account for patient's clinical symptoms.
[2019-01-11] MEDS ORDERED: GLYCERIN ADULT SUPPOSITORY 1 EACH RECTAL STA (19:37)
[2019-01-11] MEDS ORDERED: MORPHINE SULFATE 4 MG/ML SYRINGE IVP STA (19:37)
[2019-01-11] MEDS ORDERED: MAGNESIUM CITRATE 296 ML BOTTLE PO ONE (19:37)
[2019-01-11] MEDS ORDERED: SENNOSIDES-DOCUSATE SODIUM 1 EACH TAB PO STA (19:37)
[2019-01-11 20:55] VITALS: BP 121/63; PULSE 85
== END 2019-01-11 21:15 | disposition home or self-care (01) ==
LOC: EC 15:19
DX: N40.1 Benign prostatic hyperplasia with lower urinary tract symptoms (principal); R10.30 Lower abdominal pain, unspecified; R11.0 Nausea; I25.10 Atherosclerotic heart disease of native coronary artery without angina pectoris; K21.9 Gastro-esophageal reflux disease without esophagitis; I10 Essential (primary) hypertension; I25.2 Old myocardial infarction; F32.9 Major depressive disorder, single episode, unspecified; E07.9 Disorder of thyroid, unspecified; Z87.19 Personal history of other diseases of the digestive system; Z87.442 Personal history of urinary calculi; Z87.891 Personal history of nicotine dependence; Z85.830 Personal history of malignant neoplasm of bone; Z92.21 Personal history of antineoplastic chemotherapy; Z94.81 Bone marrow transplant status; Z90.49 Acquired absence of other specified parts of digestive tract; Z95.5 Presence of coronary angioplasty implant and graft; Z98.890 Other specified postprocedural states; Z79.890 Hormone replacement therapy; Z79.899 Other long term (current) drug therapy
CPT/HCPCS: 36415; 80053; 82150; 83605; 83690; 85025; 81003; 87086; 74177; 99285; 96374; 96375 ×2; 96376; 96361 ×4; J2270; J2405; C9113; Q9967

== ENCOUNTER 2019-01-12 08:31 | Emergency (ER) | payer MEDICARE, OTHER ==
[2019-01-12 08:39] VITALS: RESP 18; TEMP 97.9
--- NOTE | 2019-01-12 09:23 | ED ---
General Adult HPI - General Chief complaint: Abdominal Pain Stated complaint: ABDOMINAL PAIN, CONSTIPATION Time Seen by Provider: 01/12/19 08:35 Source: patient, RN notes reviewed Mode of arrival: wheelchair Limitations: no limitations - History of Present Illness Initial comments: This is a 73-year-old male presents emergency Department complaining that he is constipated. Patient states he was toxic radius and came to the emergency department and has not been a vehicle signs. Patient states he drank some milk of magnesia but has had no bowel movement. Patient states he feels pressure in his lower abdomen anytime he tries to go. Patient feels as though he needs to go but has been unable to go. Patient denies any upper abdominal pain. Patient denies any recent fever chills. Patient denies any back pain. Patient is a dysuria hematuria urinary frequency. - Related Data Home Medications Medication Instructions Recorded Confirmed Dicyclomine HCl 20 mg PO DAILY 05/24/14 01/12/19 Levothyroxine Sodium [Synthroid] 100 mcg PO DAILY 05/24/14 01/12/19 Tamsulosin [Flomax] 0.4 mg PO DAILY 10/11/16 01/12/19 amLODIPine [Norvasc] 5 mg PO DAILY 10/11/16 01/12/19 Gabapentin [Neurontin] 100 mg PO HS 01/26/18 01/12/19 clonazePAM [KlonoPIN] 0.5 mg PO DAILY PRN 01/26/18 01/12/19 Metoprolol Succinate [Toprol Xl] 100 mg PO DAILY 11/26/18 01/12/19 Magnesium Oxide 400 mg PO DAILY 12/05/18 01/12/19 Nortriptyline [Pamelor] 25 mg PO DAILY 12/05/18 01/12/19 Ondansetron [Zofran] 4 mg PO Q8H 12/05/18 01/12/19 Venetoclax [Venclexta] 200 mg PO DAILY 12/16/18 01/12/19 Loperamide [Imodium] 2 mg PO DAILY PRN 01/12/19 01/12/19 Omeprazole 20 - 40 mg PO DAILY 01/12/19 01/12/19 Previous Rx's Medication Instructions Recorded Atorvastatin [Lipitor] 80 mg PO HS #30 tab 07/31/18 Isosorbide Mononitrate ER [Imdur] 30 mg PO DAILY #30 tab.er.24h 07/31/18 Nitroglycerin Sl Tabs [Nitrostat] 0.4 mg SUBLINGUAL Q5M PRN #25 tab 07/31/18 Ticagrelor [Brilinta] 90 mg PO BID #60 tab 07/31/18 metFORMIN HCL 1,000 mg PO DAILY #0 07/31/18 Polyethylene Glycol 3350 [Miralax] 17 gm PO HS powd.pack 12/08/18 Allergies Allergy/AdvReac Type Severity Reaction Status Date / Time No Known Allergies Allergy Verified 01/12/19 10:05 Review of Systems ROS Statement: Those systems with pertinent positive or pertinent negative responses have been documented in the HPI. ROS Other: All systems not noted in ROS Statement are negative. 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 [facility], chronic intermittedt R lower abdominal pain with etiology unknown, NIDDM type II, BPH, rectal bleed, diverticulosis, kidney stones, pt denies any kidney disease other than stones."CHIPPED DISC" d/t faLL IN NOVEMBER Last Myocardial Infarction Date:: 2017(non q wave) History of Any Multi-Drug Resistant Organisms: None Reported Past Surgical History: Adenoidectomy, Appendectomy, Cholecystectomy, Heart Catheterization With Stent, Hernia Repair, Orthopedic Surgery, Tonsillectomy Additional Past Surgical History / Comment(s): Bilateral carpal tunnel, bone spur removals to bilateral heels and FEET," 8 cardiac STENTS", B/L KNEE BONE SPURS, CATARACTS JA with lens implants, JA INGUINAL HERNIA REPAIR AND UMBILLICAL. removal of malignant tumor from back,EGD 06-04-17, RT LEG SX FOR TORN LIGAMENT."WAS BORN W/ OVERSIZED LIVER HAD SX TO REDUCE IT'S SIZE" Past Anesthesia/Blood Transfusion Reactions: No Reported Reaction Additional Past Anesthesia/Blood Transfusion Reaction / Comment(s): Pt states he has received blood in the past without reaction. Date of Last Stent Placement:: 2017 Past Psychological History: Depression Smoking Status: Former smoker Past Alcohol Use History: None Reported Past Drug Use History: None Reported - Past Family History Father Family Medical History: Myocardial Infarction (PR) Additional Family Medical History / Comment(s): PTBA Mother Family Medical History: CVA/TIA, Diabetes Mellitus Additional Family Medical History / Comment(s): Mother of a CVA at the age of 82 yrs. Brother(s) Family Medical History: Cancer Additional Family Medical History / Comment(s): 2 brothers have MS General Exam - General Exam Comments Initial Comments: GENERAL: Patient is well-developed and well-nourished. Patient is nontoxic and well- hydrated and is in mild distress. ENT: Neck is soft and supple. No significant lymphadenopathy is noted. Oropharynx is clear. Moist mucous membranes. Neck has full range of motion without eliciting any pain. EYES: The sclera were anicteric and conjunctiva were pink and moist. Extraocular movements were intact and pupils were equal round and reactive to light. Eyelids were unremarkable. PULMONARY: Unlabored respirations. Good breath sounds bilaterally. No audible rales rhonchi or wheezing was noted. CARDIOVASCULAR: There is a regular rate and rhythm without any murmurs gallops or rubs. ABDOMEN: Soft and nontender with normal bowel sounds. SKIN: Skin is clear with no lesions or rashes and otherwise unremarkable. NEUROLOGIC: Patient is alert and oriented x3. Cranial nerves II through XII are grossly intact. Motor and sensory are also intact. Normal speech, volume and content. Symmetrical smile. MUSCULOSKELETAL: Normal extremities with adequate strength and full range of motion. No lower extremity swelling or edema. No calf tenderness. LYMPHATICS: No significant lymphadenopathy is noted PSYCHIATRIC: Normal psychiatric evaluation. Limitations: no limitations Course Vital Signs 01/12/19 08:37 Temperature 97.9 F Pulse Rate 85 Respiratory 18 Rate Blood Pressure 138/90 O2 Sat by Pulse 99 Oximetry Medical Decision Making - Medical Decision Making EKG was done because patient had sharp chest pain. I went and interviewed the patient about this he said it was sharp lasting 1-2 seconds and had been completely resolved. EKG showed normal sinus rhythm at 81 bpm NE interval 170 QRS is 92 QT interval 370 QTC is 439. Patient's EKG shows no ST segment elevation or depression or T wave abnormalities are noted. I reviewed all labs from yesterday as well as a CAT scan. I gave the patient a milk and molasses enema and he had good results. Patient stated he felt much better and no longer was having abdominal pain. Disposition Clinical Impression: Constipation Disposition: HOME SELF-CARE Condition: Good Instructions (If sedation given, give patient instructions): Constipation (ED), High Fiber Diet (ED) Is patient prescribed a controlled substance at d/c from ED?: No Referrals: Micheal Adamson MD [Primary Care Provider] - 1-2 days Time of Disposition: 11:49
[2019-01-12 12:27] VITALS: BP 133/67; PULSE 73
== END 2019-01-12 12:29 | disposition home or self-care (01) ==
LOC: EC 08:31
DX: K59.00 Constipation, unspecified (principal); R07.9 Chest pain, unspecified; R30.0 Dysuria; R31.9 Hematuria, unspecified; R35.0 Frequency of micturition; I25.119 Atherosclerotic heart disease of native coronary artery with unspecified angina pectoris; I10 Essential (primary) hypertension; I25.2 Old myocardial infarction; E07.9 Disorder of thyroid, unspecified; K21.9 Gastro-esophageal reflux disease without esophagitis; N40.1 Benign prostatic hyperplasia with lower urinary tract symptoms; M19.90 Unspecified osteoarthritis, unspecified site; F32.9 Major depressive disorder, single episode, unspecified; Z87.891 Personal history of nicotine dependence; Z79.890 Hormone replacement therapy; Z79.899 Other long term (current) drug therapy; Z92.21 Personal history of antineoplastic chemotherapy; Z90.49 Acquired absence of other specified parts of digestive tract; Z85.830 Personal history of malignant neoplasm of bone; Z94.81 Bone marrow transplant status; Z95.5 Presence of coronary angioplasty implant and graft; Z87.738 Personal history of other specified (corrected) congenital malformations of digestive system; Z82.49 Family history of ischemic heart disease and other diseases of the circulatory system
CPT/HCPCS: 93005; 99284

== ENCOUNTER 2019-01-30 09:35 | Inpatient (IN) | payer MEDICARE, OTHER ==
[2019-01-30] MEDS ORDERED: SODIUM CHLORIDE 0.9% 500 ML 500 ML IV STA (09:58)
--- NOTE | 2019-01-30 10:10 | ED ---
GI Bleed HPI - General Source: patient, RN notes reviewed Mode of arrival: wheelchair Limitations: no limitations <Manjit Miller - Last Filed: 01/30/19 10:58> <Carlos A Pritchett - Last Filed: 01/30/19 11:21> - General Chief complaint: GI Bleed Stated complaint: rectal bleeding Time Seen by Provider: 01/30/19 09:45 - History of Present Illness Initial comments: 73-year-old male presents emergency Department with chief complaint of rectal bleeding. Patient states he had a large bowel movement this morning which was h efrain states that he noticed bright red blood. Patient states she has rectal pain now. Patient states that he does have chronic issues with bowel movements in constipation. 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 Patient denies any chest pain, shortness breath, fever, chills, dysuria, hematuria. Patient denies any current blood thinners. Patient offers no other complaints. (Manjit Miller) - Related Data Home Medications Medication Instructions Recorded Confirmed Dicyclomine HCl 20 mg PO DAILY 05/24/14 01/30/19 Levothyroxine Sodium [Synthroid] 100 mcg PO DAILY 05/24/14 01/30/19 Tamsulosin [Flomax] 0.4 mg PO DAILY 10/11/16 01/30/19 amLODIPine [Norvasc] 5 mg PO DAILY 10/11/16 01/30/19 Gabapentin [Neurontin] 100 mg PO HS 01/26/18 01/30/19 clonazePAM [KlonoPIN] 0.5 mg PO DAILY PRN 01/26/18 01/30/19 Metoprolol Succinate [Toprol Xl] 100 mg PO DAILY 11/26/18 01/30/19 Magnesium Oxide 400 mg PO DAILY 12/05/18 01/30/19 Nortriptyline [Pamelor] 25 mg PO DAILY 12/05/18 01/30/19 Ondansetron [Zofran] 4 mg PO Q8H 12/05/18 01/30/19 Venetoclax [Venclexta] 200 mg PO DAILY 12/16/18 01/30/19 Omeprazole 20 - 40 mg PO DAILY 01/12/19 01/30/19 Acetaminophen [Tylenol Extra 500 mg PO Q6HR PRN 01/29/19 01/30/19 Strength] Acyclovir 400 mg PO BID 01/29/19 01/30/19 Docusate [Colace] 100 mg PO DAILY 01/29/19 01/30/19 HYDROcodone/APAP 5-325MG [[place] 1 tab PO Q6HR PRN 01/29/19 01/30/19 5-325] Previous Rx's Medication Instructions Recorded Atorvastatin [Lipitor] 80 mg PO HS #30 tab 07/31/18 Isosorbide Mononitrate ER [Imdur] 30 mg PO DAILY #30 tab.er.24h 07/31/18 Nitroglycerin Sl Tabs [Nitrostat] 0.4 mg SUBLINGUAL Q5M PRN #25 tab 07/31/18 Ticagrelor [Brilinta] 90 mg PO BID #60 tab 07/31/18 metFORMIN HCL 1,000 mg PO DAILY #0 07/31/18 Polyethylene Glycol 3350 [Miralax] 17 gm PO HS powd.pack 12/08/18 Allergies Allergy/AdvReac Type Severity Reaction Status Date / Time No Known Allergies Allergy Verified 01/30/19 10:03 Review of Systems ROS Other: All systems not noted in ROS Statement are negative. <Manjit Miller - Last Filed: 01/30/19 10:58> ROS Other: All systems not noted in ROS Statement are negative. <Carlos A Pritchett - Last Filed: 01/30/19 11:21> ROS Statement: Those systems with pertinent positive or pertinent negative responses have been documented in the HPI. 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 [facility], chronic intermittedt R lower abdominal pain with etiology unknown, NIDDM type II, BPH, rectal bleed, diverticulosis, kidney stones, pt denies any kidney disease other than stones."CHIPPED DISC" d/t faLL IN NOVEMBER Last Myocardial Infarction Date:: 2017(non q wave) History of Any Multi-Drug Resistant Organisms: None Reported Past Surgical History: Adenoidectomy, Appendectomy, Cholecystectomy, Heart Catheterization With Stent, Hernia Repair, Orthopedic Surgery, Tonsillectomy Additional Past Surgical History / Comment(s): Bilateral carpal tunnel, bone spur removals to bilateral heels and FEET," 8 cardiac STENTS", B/L KNEE BONE SPURS, CATARACTS JA with lens implants, JA INGUINAL HERNIA REPAIR AND UMBILLICAL. removal of malignant tumor from back,EGD 06-04-17, RT LEG SX FOR TORN LIGAMENT."WAS BORN W/ OVERSIZED LIVER HAD SX TO REDUCE IT'S SIZE" Past Anesthesia/Blood Transfusion Reactions: No Reported Reaction Additional Past Anesthesia/Blood Transfusion Reaction / Comment(s): Pt states he has received blood in the past without reaction. Date of Last Stent Placement:: 2017 Past Psychological History: Depression Smoking Status: Former smoker - Past Family History Father Family Medical History: Myocardial Infarction ([place]) Additional Family Medical History / Comment(s): PTBA Mother Family Medical History: CVA/TIA, Diabetes Mellitus Additional Family Medical History / Comment(s): Mother of a CVA at the age of 82 yrs. Brother(s) Family Medical History: Cancer Additional Family Medical History / Comment(s): 2 brothers have MS <Manjit Miller - Last Filed: 01/30/19 10:58> General Exam Limitations: no limitations General appearance: alert, in no apparent distress Head exam: Present: atraumatic, normocephalic, normal inspection Neck exam: Present: normal inspection. Absent: tenderness, meningismus, lymphadenopathy Respiratory exam: Present: normal lung sounds bilaterally. Absent: respiratory distress, wheezes, rales, rhonchi, stridor Cardiovascular Exam: Present: regular rate, normal rhythm, normal heart sounds. Absent: systolic murmur, diastolic murmur, rubs, gallop, clicks GI/Abdominal exam: Present: soft, normal bowel sounds. Absent: distended, tenderness, guarding, rebound, rigid Rectal exam: Present: hemorrhoids (Mild right leg blood noted from hemorrhoid) Neurological exam: Present: alert Skin exam: Present: warm, dry, intact, normal color. Absent: rash <Manjit Miller - Last Filed: 01/30/19 10:58> Course Vital Signs 01/30/19 09:40 Temperature 97.8 F Pulse Rate 96 Respiratory 18 Rate Blood Pressure 126/69 O2 Sat by Pulse 100 Oximetry Medical Decision Making - Lab Data Result diagrams: 01/30/19 10:07 01/30/19 10:07 <Manjit Miller - Last Filed: 01/30/19 10:58> - Lab Data Result diagrams: 01/30/19 10:07 01/30/19 10:07 <Carlos A Pritchett - Last Filed: 01/30/19 11:21> - Medical Decision Making 73-year-old male present emergency from for rectal bleeding. This most likely is related to hemorrhoids no given patient's history of anemia current hemogram 7.9 patient will be observed with consults oncology and GI. (Manjit Miller) Patient reevaluated and reexamined by myself, Dr. Pritchett. Patient resting comfortably in bed. Secondary to patient's history and recent blood transfusion patient will be held. Case was discussed in detail with Dr. Blanc, who will admit for Dr. Adamson. Oncology will also be placed on consult. I do agree with PA findings. This includes diagnostic interpretation and treatment plan. (Carlos A Pritchett) - Lab Data Lab Results 01/30/19 01/30/19 01/30/19 Range/Units 10:07 10:07 10:07 WBC 0.4 L* (3.8-10.6) k/uL RBC 2.69 L (4.30-5.90) m/uL Hgb 7.9 L (13.0-17.5) gm/dL Hct 24.3 L (39.0-53.0) % MCV 90.2 (80.0-100.0) fL MCH 29.3 (25.0-35.0) pg MCHC 32.5 (31.0-37.0) g/dL RDW 19.0 H (11.5-15.5) % Plt Count 81 L D (150-450) k/uL Neutrophils # [employer] [facility] [employer] Differential Comment Manual Slide Review Performed Hypochromasia Moderate Poikilocytosis Marked Anisocytosis Slight PT 11.2 (9.0-12.0) sec INR 1.1 (<1.2) APTT 28.4 (22.0-30.0) sec Sodium 137 (137-145) mmol/L Potassium 4.2 (3.5-5.1) mmol/L Chloride 107 (98-107) mmol/L Carbon Dioxide 22 (22-30) mmol/L Anion Gap 8 mmol/L BUN 23 H (9-20) mg/dL Creatinine 1.36 H (0.66-1.25) mg/dL Est GFR (CKD-EPI)AfAm 60 (>60 ml/min/1.73 sqM) Est GFR (CKD-EPI)NonAf 52 (>60 ml/min/1.73 sqM) Glucose 130 H (74-99) mg/dL Calcium 8.9 (8.4-10.2) mg/dL Total Bilirubin 0.8 (0.2-1.3) mg/dL AST 20 (17-59) U/L ALT 28 (21-72) U/L Alkaline Phosphatase 73 (38-126) U/L Total Protein 6.1 L (6.3-8.2) g/dL Albumin 3.4 L (3.5-5.0) g/dL Disposition <Manjit Miller - Last Filed: 01/30/19 10:58> <Carlos A Pritchett - Last Filed: 01/30/19 11:21> Clinical Impression: Rectal bleeding Disposition: ADMITTED IP TO THIS HOSP Condition: Fair Referrals: Micheal Adamson MD [Primary Care Provider] - 1-2 days
--- NOTE | 2019-01-30 10:25 | XR ---
EXAMINATION TYPE: XR KUB , 3 VIEWS DATE OF EXAM ORDERED: 01/30/2019 HISTORY: Pain. COMPARISON: Previous study dated 09/03/2018. FINDINGS: Bases are clear. Within the abdomen, the gallbladder is been removed. The abdominal gas pattern is within normal limit s. There is no evidence of obstruction or free air. There is a well-defined calcification over the ex treme lateral aspect of the left side of the abdomen. The etiology of this is uncertain. It may repre sent a phlebolith or other benign calcification. IMPRESSION: NONOBSTRUCTIVE ABDOMINAL GAS PATTERN.
[2019-01-30 10:26] LABS: Anisocytosis Slight; HCT 24.3 % (39.0-53.0); HGB 7.9 gm/dL (13.0-17.5); Hypochromasia Moderate; MCH 29.3 pg (25.0-35.0); MCHC 32.5 g/dL (31.0-37.0); MCV 90.2 fL (80.0-100.0); Mean Platelet Volume 10.1; Poikilocytosis Marked; RBC 2.69 m/uL (4.30-5.90)
[2019-01-30 10:34] LABS: INR 1.1 (<1.2)
[2019-01-30 10:35] LABS: Partial Thromboplastin Time 28.4 sec (22.0-30.0); Prothrombin Time 11.2 sec (9.0-12.0)
[2019-01-30 10:37] LABS: Albumin 3.4 g/dL (3.5-5.0); Calcium 8.9 mg/dL (8.4-10.2); Potassium 4.2 mmol/L (3.5-5.1); Total Bilirubin 0.8 mg/dL (0.2-1.3); Total Protein 6.1 g/dL (6.3-8.2)
[2019-01-30 10:41] LABS: WBC 0.4 k/uL (3.8-10.6)
[2019-01-30 10:43] LABS: Platelet Count 81 k/uL (150-450)
[2019-01-30] MEDS ORDERED: ACETAMINOPHEN TAB 325 MG TAB PO PRN (10:59)
[2019-01-30] MEDS ORDERED: NALOXONE 0.4 MG/ML 1 ML VIAL IV PRN (10:59)
--- NOTE | 2019-01-30 14:39 | CONS ---
CONSULTATION DATE OF SERVICE: January 30, 2019. REASON FOR CONSULTATION: Acute leukemia. REASON FOR ADMISSION: Lower GI bleed. CHIEF COMPLAINT: Rectal bleeding. HISTORY OF PRESENT ILLNESS: David is a very pleasant 73-year-old gentleman, very well known to our practice. He has been under the care of Dr. Vieyra. 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 The patient was started on hypomethylating agent. Along with oral Venetoclax. He has had 3 cycles so far and he appears to be tolerating treatment reasonably well, although he still continued to require blood transfusion. The patient presented to the emergency department yesterday complaining of rectal bleeding. He had a large bowel movement and he noticed bright red blood after his bowel movement associated with some rectal pain. This happened twice, so he came into the emergency department. He recently did receive blood transfusion in the outpatient setting and in the emergency department, his hemoglobin was around his baseline without any significant drop. So he ended up being admitted to the hospital for further evaluation and recommendation. He denies any fever or chills. He is ambulating well. No dysphagia. No hematuria, hemoptysis, hematemesis or epistaxis and his weight has been relatively stable. PAST MEDICAL HISTORY: In addition to what is stated above in regard to his leukemia, he has a history of coronary artery disease. He has cardiac stents placement. He is diabetic and has a history of hypertension, myocardial infarction, hypothyroidism, and osteoarthritis. PAST SURGICAL HISTORY: He has a history of adenoidectomy, appendectomy, cholecystectomy, heart catheterization with stent placement. Hernia repair, tonsillectomy. He had bilateral carpal tunnel surgery, bone spur removal, inguinal hernia repair, tumor removed from his back in the past. SOCIAL HISTORY: He used to smoke and quit a while ago. No alcohol abuse or substance abuse. FAMILY HISTORY: Significant for coronary artery disease in his father and his mother has diabetes and one of his brother's has cancer and 2 brothers had a mass. REVIEW OF SYSTEMS: As stated above in history of present illness, otherwise negative. MEDICATION: Medications and allergies are reviewed in his electronic medical record. PHYSICAL EXAMINATION: He is alert, oriented x3. He does not appear to be in acute distress at this point in time. His vital signs are temperature 97.6 afebrile, pulse 61 regular, respirations 16, blood pressure 137/76. HEENT: Normocephalic, atraumatic. No obvious icterus. NECK: Supple. Chest equal expansion bilaterally. LUNGS: Clear to auscultation and percussion. Heart is regular rate and rhythm. ABDOMEN: Soft. No obvious organomegaly or masses. Bowel sounds present. Extremities reveals no edema. Skin no significant bruise or petechiae. Lymphatics no peripherally enlarged cervical supraclavicular nodes. Musculoskeletal: Moving all extremities appropriately. No percussion tenderness detected over spine or sternum. RECENT LABORATORY DATA: WBC of 0.4, hemoglobin 7.9, hematocrit is 24.3, platelets are 81. PT 11.2, PTT 28.4, sodium 137, potassium 4.2, chloride 102, CO2 is 22, BUN is 23, creatinine 1.36. IMPRESSION: 1. Rectal bleed based on the clinical presentation. This is likely a hemorrhoidal bleed. His hemoglobin has been relatively stable. 2. Pancytopenia. This is related to his underlying MDS/acute myelogenous leukemia. 3. Multiple other comorbidities. RECOMMENDATIONS: 1. The patient may continue oral Venetoclax while in the hospital. 2. Monitor blood count. 3. Awaiting a Gastroenterology evaluation. However, I would not recommend a colonoscopy/EGD at this point in time, unless there is active bleeding in view of his significant neutropenia. If his hemoglobin remains stable without any further rectal bleed that the patient could be discharged from the hospital and he will follow up with Dr. Vieyra in the outpatient setting. The above was discussed in detail with the patient at bedside and I have answered all his questions to his satisfaction. Thank you very much for asking me participate in the care of this nice gentleman. [email or web address] / DONALDN: [id number] /
[2019-01-30] MEDS ORDERED: clonazePAM 0.5 MG TAB PO PRN (16:03)
[2019-01-30] MEDS ORDERED: HYDROcodone/APAP 5-325MG 1 EACH TAB PO PRN (16:03)
[2019-01-30] MEDS ORDERED: NITROGLYCERIN SL TABS 0.4 MG TAB SUBLINGUAL PRN (16:03)
[2019-01-30] MEDS ORDERED: ALPRAZolam 0.25 MG TAB PO PRN (16:06)
[2019-01-30] MEDS ORDERED: TEMAZEPAM 15 MG CAP PO PRN (16:06)
[2019-01-30 16:35] LABS: Anisocytosis Slight; HCT 21.6 % (39.0-53.0); Hypochromasia Marked; MCH 29.5 pg (25.0-35.0); MCV 92.2 fL (80.0-100.0); Macrocytosis Slight; Mean Platelet Volume 10.9; Poikilocytosis Marked; RBC 2.34 m/uL (4.30-5.90); RDW 19.3 % (11.5-15.5)
[2019-01-30 16:42] LABS: HGB 6.9 gm/dL (13.0-17.5); WBC 0.4 k/uL (3.8-10.6)
--- NOTE | 2019-01-30 16:54 | HP ---
HISTORY AND PHYSICAL DATE OF SERVICE: 01/30/2019 I am covering for Dr. Micheal Adamson. HISTORY OF THE PRESENT ILLNESS: This 73-year-old gentleman with a past history of CAD, history of diabetes, GERD, GI bleed, hypertension, myocardial infarction, DJD, history of prostate disorder being followed by Dr. Micheal Adamson in the outpatient setting also had myelodysplastic syndrome, acute myeloid leukemia. Patient also had a bone marrow transplant in 2016 at [facility]. The patient also had chronic intermittent right lower abdominal pain of undetermined etiology. Patient also had history of CAD, stent. Today the patient noticed significant bloody stools, and the patient came to [facility] and was admitted for further evaluation and treatment. There is no history of fever, rigors or chills. No history of headache, loss of consciousness, seizures at this time. The patient had severe neutropenia 0.4 and pancytopenia also. There is no history of fever, rigors. No headache, loss of consciousness, seizures. PAST MEDICAL HISTORY: History of CAD, history of chest pain, diabetes type 2, GERD, GI bleed, hypertension, myocardial infarction, DJD, hypothyroidism, CAD, stent and depression. MEDICATIONS: Prior to admission include home medications are: 1. Metformin 1000 mg p.o. daily. 2. Klonopin 0.5 mg daily p.r.n. 3. Norvasc 5 mg p.o. daily. 4. Venclexta 200 mg p.o. daily. 5. Brilinta 90 mg p.o. b.i.d. 6. Flomax 0.4 daily. 7. MiraLAX 17 g q.h.s. 8. Zofran 4 mg q8h. 9. Omeprazole 40 mg p.o. daily. 10.Pamelor 25 mg b.i.d. 11.Nitrostat 0.4 mg sublingual p.r.n. 12.Toprol-XL 100 mg daily. 13.Magnesium oxide 400 mg daily. 14.Synthroid 100 mcg daily. 15.Imdur 30 mg b.i.d. 16.Bennett 5 mg q.6h p.r.n. 17.Neurontin 100 mg p.o. q.h.s. 18.Colace 100 mg b.i.d. 19.Dicyclomine 20 mg p.o. daily. 20.Lipitor 80 mg q.h.s. 21.Acyclovir 400 mg p.o. b.i.d. 22.Tylenol 500 q.8h p.r.n. ALLERGIES: None. FAMILY HISTORY: History of myocardial infarction and PTB in the family. SOCIAL HISTORY: No history of smoking, no history of alcohol. REVIEW OF SYSTEMS: ENT: No diminished hearing or vision. CARDIOVASCULAR: No angina or palpitations. RESPIRATORY: As mentioned earlier. GI no nausea or vomiting. no dysuria. CENTRAL NERVOUS SYSTEM: No numbness or weakness. ALLERGY/IMMUNOLOGY: No asthma or hayfever. MUSCULOSKELETAL: As mentioned earlier. HEMATOLOGY/ONCOLOGY: As mentioned earlier. ENDOCRINE: As mentioned earlier. CONSTITUTIONAL: As mentioned earlier. Dermatology: Negative. Rheumatology: Negative. Psychiatry: As mentioned earlier. PHYSICAL EXAMINATION: Alert and oriented x3. Pulse is 86, blood pressure 114/60, respirations 16, temperature 97.7, pulse ox 98% on room air. HEENT: Conjunctivae normal. Oral mucosa moist. NECK: No jugular venous distention. No thyroid enlargement. No carotid bruit. CARDIOVASCULAR: S1, S2 muffled. RESPIRATORY: Breath sounds diminished in the bases. A few scattered rhonchi and crackles. ABDOMEN: Soft, nontender. No mass palpable. LEGS: No edema. No swelling. CENTRAL NERVOUS SYSTEM: Higher functions as mentioned earlier. Moves all four extremities. No focal deficits. Lymphatics: No lymph nodes palpable in the neck, axillae or groin. JOINTS: No active deforming arthropathy. SKIN: No ulcer, rash or bleeding. LABS: At this time shows WBC 0.5, hemoglobin 7.9, platelets 81. Creatinine is 1.36. ASSESSMENT: 1. Acute lower gastrointestinal bleed, possibly secondary for evaluation with acute blood loss anemia, possibly. 2. Severe pancytopenia. 3. Severe neutropenia. 4. Increased creatinine with chronic kidney disease stage III. 5. History of acute myeloid leukemia and myelodysplastic syndrome and status post bone marrow transplantation. 6. History of CAD/stent. 7. History of diabetes Type 2. 8. History of gastroesophageal reflux disease. 9. History of gastrointestinal bleed. 10.History of hypertension. 11.History of myocardial infarction. 12.History of degenerative joint disease. 13.History of prostate disorder. 14.History of hypothyroidism. 15.History of coronary artery disease, stent. 16.Depression. RECOMMENDATIONS AND DISCUSSION: In this 73-year-old gentleman who presented with multiple complex medical issues, we will monitor the patient closely continue the current medications, continue management and symptomatic treatment. Otherwise, at this time I would recommend monitor hemoglobin closely. The patient colonoscopy at least but however because of neutropenia per Dr. Funes, colonoscopy should be withheld at this point. Otherwise, I would repeat the labs. Obtain a Gastroenterology evaluation. Continue to monitor. Resume the rest of medications. Avoid antiplatelet agents. Guarded prognosis because of multiple complex medical issues. Further recommendations to follow. A copy of dictation being forwarded to Dr. Adamson's who is the primary care physician. MMODL / IJN: [id number] / MTDCollette
[2019-01-30 17:20] LABS: Platelet Count 72 k/uL (150-450)
[2019-01-30] MEDS: ONDANSETRON 4 MG TAB PO SCH ×2 (17:20→23:49)
[2019-01-30] MEDS: ACYCLOVIR 200 MG CAP PO SCH (20:19)
[2019-01-30] MEDS: GABAPENTIN 100 MG CAP PO SCH (20:20)
[2019-01-30] MEDS: ATORVASTATIN 80 MG TAB PO SCH (20:20)
[2019-01-30 21:33] LABS: Glucose,Whole Blood 110 mg/dL (75-99)
[2019-01-30 22:42] LABS: Anisocytosis Slight; HCT 21.7 % (39.0-53.0); HGB 7.1 gm/dL (13.0-17.5); Hypochromasia Marked; MCH 30.1 pg (25.0-35.0); MCHC 32.7 g/dL (31.0-37.0); MCV 92.3 fL (80.0-100.0); Macrocytosis Slight; Mean Platelet Volume 9.9; Poikilocytosis Moderate; RBC 2.35 m/uL (4.30-5.90); RDW 19.5 % (11.5-15.5)
[2019-01-30 22:44] LABS: WBC 0.4 k/uL (3.8-10.6)
[2019-01-30 22:58] LABS: Platelet Count 77 k/uL (150-450)
[2019-01-31 03:42] LABS: Anisocytosis Slight; HCT 21.6 % (39.0-53.0); Hypochromasia Marked; Poikilocytosis Moderate
[2019-01-31 03:47] LABS: MCHC 31.8 g/dL (31.0-37.0); MCV 91.2 fL (80.0-100.0); Mean Platelet Volume 9.5; RBC 2.37 m/uL (4.30-5.90); RDW 18.8 % (11.5-15.5)
[2019-01-31 03:49] LABS: WBC 0.4 k/uL (3.8-10.6)
[2019-01-31 03:50] LABS: Platelet Count 82 k/uL (150-450)
[2019-01-31 03:51] LABS: HGB 6.9 gm/dL (13.0-17.5)
[2019-01-31 03:53] LABS: Calcium 8.6 mg/dL (8.4-10.2); Potassium 4.2 mmol/L (3.5-5.1)
[2019-01-31] MEDS: LEVOTHYROXINE 100 MCG TAB PO SCH (05:57)
[2019-01-31] MEDS ORDERED: PANTOPRAZOLE 40 MG TABLET PO SCH (07:30)
[2019-01-31] MEDS: ONDANSETRON 4 MG TAB PO SCH ×3 (08:46→23:45)
[2019-01-31] MEDS: DICYCLOMINE 20 MG TAB PO SCH (08:47)
[2019-01-31] MEDS: metFORMIN 500 MG TAB PO SCH (08:47)
[2019-01-31] MEDS: ACYCLOVIR 200 MG CAP PO SCH ×2 (08:47→20:01)
[2019-01-31] MEDS: METOPROLOL SUCCINATE (ER) 100 MG TAB.ER.24H PO SCH (08:47)
[2019-01-31] MEDS: TAMSULOSIN 0.4 MG CAP.ER.24H PO SCH (08:48)
[2019-01-31] MEDS: ISOSORBIDE MONONITRATE ER 30 MG TAB.ER.24H PO SCH (08:48)
[2019-01-31] MEDS: NORTRIPTYLINE 25 MG CAP PO SCH (08:48)
[2019-01-31] MEDS: amLODIPine 5 MG TAB PO SCH (08:48)
[2019-01-31] MEDS: PANTOPRAZOLE 40 MG TABLET PO SCH (08:48)
[2019-01-31] MEDS: MAGNESIUM OXIDE 400 MG TAB PO SCH (08:48)
[2019-01-31] MEDS: VENCLEXTA 100 MG PO SCH (08:49)
--- NOTE | 2019-01-31 09:19 | CONS ---
CONSULTATION DATE OF DICTATION: January 31, 2019 REASON FOR CONSULTATION: Rectal bleeding. HISTORY OF PRESENT ILLNESS: The patient is a 73-year-old pleasant white male who was admitted to the hospital yesterday with intermittent rectal bleeding for the last 3-4 days duration. The patient started feeling somewhat constipated about 5 days ago and had a bowel movement. He developed severe rectal pain followed by rectal bleeding and since then he had bleeding almost on a daily basis. This morning he had a bowel movement with no blood. He still complains of some rectal discomfort this morning. He denies any abdominal pain. No nausea, no vomiting. His past medical history is significant for acute myelogenous leukemia for which he follows with Dr. Vieyra and is status post allogeneic stem cell transplantation approximately 5 years ago and did well. He developed pancytopenia and subsequently diagnosed with myelodysplasia and recurrent acute myelogenous leukemia for which he is undergoing chemotherapy. PAST MEDICAL HISTORY: His past medical history significant for acute AML, history of diabetes mellitus, hypertension, coronary artery disease, hypothyroidism, degenerative joint disease. PAST SURGICAL HISTORY: Adenoidectomy, appendectomy, cholecystectomy, cardiac cath with stent placement, stem cell transplant 5 years ago, bilateral carpal tunnel surgery. MEDICATIONS: At home include metformin, Klonopin, Norvasc, Venclexta, Brilinta, Flomax, MiraLAX, Zofran, Prilosec, Pamelor, Nitrostat, Toprol, magnesium oxide, Synthroid, Imdur, Bellamy, Neurontin, Colace, dicyclomine, Lipitor, acyclovir, and Tylenol. SOCIAL HISTORY: No smoking. No alcohol use. FAMILY HISTORY: Unremarkable. REVIEW OF SYSTEMS: Cardiopulmonary: No chest pain or shortness of breath. Genitourinary: No dysuria or hematuria. Musculoskeletal unremarkable. Skin unremarkable. Endocrine unremarkable. Psychiatric unremarkable. Neurology unremarkable. ENT/vision unremarkable. Constitutional: No recent weight loss. No fever, chills, night sweats. PHYSICAL EXAMINATION: Appears comfortable in no apparent distress. VITAL SIGNS: Stable. Blood pressure is 132/77, pulse rate 85 per minute and afebrile. HEENT examination unremarkable. Conjunctivae pink. Sclerae anicteric. Oral cavity no lesions. Neck no JVD or lymph node enlargement. Chest was clear to auscultation. HEART: Regular rate and rhythm. ABDOMEN: Soft. Bowel sounds are positive. No organomegaly. Extremities no pedal edema. Skin no rashes. NEUROLOGIC: Alert and oriented x3. No focal deficits. LABORATORY DATA: The following are the labs at the time of admissionto the Hospital: WBC 0.4, hemoglobin 6.9, platelets are 82,000. He received one unit of blood transfusion. CBC with differential count within normal limits. IMPRESSION: 1. Rectal bleeding for the last 5 days duration associated with rectal pain, most likely we are dealing with an acute anal fissure related to constipation and excessive straining at stool. The patient did have a colonoscopy by Dr. Mandujano in June of 2017 that showed evidence of small internal hemorrhoids. 2. Recurrent acute myelogenous leukemia for which he is undergoing chemotherapy through Dr. Vieyra. 3. Pancytopenia related to chemotherapy/myelodysplasia. RECOMMENDATION: 1. Start him on MiraLAX 1 scoop twice daily. 2. Hydrocortisone suppository at bedtime. 3. Avoid straining and constipation. 4. No need for any repeat endoscopy intervention at the present time. 5. We will follow him closely during his hospital stay. Thank you for this consultation. MMODL / DONALDN: [id number] /
[2019-01-31] MEDS: HYDROCORTISONE SUPPOSITORY 25 MG SUPP RECTAL SCH (10:29)
[2019-01-31] MEDS: POLYETHYLENE GLYCOL 3350 17 GM POWD.PACK PO SCH (10:29)
[2019-01-31 12:44] LABS: Glucose,Whole Blood 112 mg/dL (75-99)
[2019-01-31 12:47] VITALS: RESP 16
[2019-01-31 17:19] LABS: Glucose,Whole Blood 118 mg/dL (75-99)
[2019-01-31] MEDS: ATORVASTATIN 80 MG TAB PO SCH (20:01)
[2019-01-31] MEDS: GABAPENTIN 100 MG CAP PO SCH (20:01)
[2019-01-31 20:20] LABS: Glucose,Whole Blood 163 mg/dL (75-99)
--- NOTE | 2019-01-31 21:40 | PN ---
PROGRESS NOTE DATE OF SERVICE: 01/31/2019. HISTORY: This 73-year-old gentleman with a past medical history of multiple medical problems was admitted with GI bleed. The hemoglobin was found to be 6.9 last night, for which the patient received transfusion. The patient is being closely monitored. No chest pain. No palpitations. No fever. EXAM: Alert and oriented x3. Pulse 86, blood pressure 118/60, respirations 16, temperature 97.4, pulse ox 100 percent on room air. HEENT: Conjunctivae normal. CARDIOVASCULAR: S1 and S2 muffled. LUNGS: Breath sounds diminished at the bases. Scattered rhonchi and crackles. ABDOMEN: Soft, nontender. EXTREMITIES: Legs, no edema. NERVOUS SYSTEM: No focal deficits. LABS: WBC 0.5, hemoglobin 6.9. Please note, Dr. Patel is following. The patient closely and the patient also had a colonoscopy by Dr. Mandujano in 2017. ASSESSMENT: 1. Acute lower gastrointestinal bleed, possibly secondary from hemorrhoids with acute blood loss anemia, status post transfusion. 2. Severe pancytopenia. 3. Severe neutropenia. 4. Increased creatinine with chronic kidney stage 3. 5. History acute myeloid leukemia and myelodysplastic syndrome, status post bone marrow transplantation. 6. History of CAD and stent. 7. Diabetes type 2. 8. Gastroesophageal reflux disease. 9. GI bleed. 10.Hypertension. 11.History of myocardial infarction. 12.History of degenerative joint disease. 13.History of prostate cancer. 14.History hypothyroidism. 15.History of depression. 16.Full code. RECOMMENDATIONS: Continue current medications, monitoring and symptomatic treatment. Otherwise at this time will monitor the patient closely and monitor the hemoglobin closely. Dr. Patel is not planning any workup now. Otherwise patient also had significant neutropenia and other medical issues also. Closely follow with Hematology/Oncology. Overall prognosis guarded. Dr. Adamson will follow. MMODL / IJN: [id number] /
[2019-02-01 05:20] VITALS: BP 96/54; PULSE 81; TEMP 98
[2019-02-01] MEDS: LEVOTHYROXINE 100 MCG TAB PO SCH (05:47)
[2019-02-01 07:12] LABS: Glucose,Whole Blood 110 mg/dL (75-99)
[2019-02-01 07:46] LABS: Calcium 8.6 mg/dL (8.4-10.2); Potassium 4.4 mmol/L (3.5-5.1)
[2019-02-01 07:49] LABS: Anisocytosis Slight; HCT 22.8 % (39.0-53.0); HGB 7.8 gm/dL (13.0-17.5); Hypochromasia Slight; MCHC 34.1 g/dL (31.0-37.0); MCV 88.2 fL (80.0-100.0); Mean Platelet Volume 9.7; Poikilocytosis Marked; RBC 2.59 m/uL (4.30-5.90); RDW 19.1 % (11.5-15.5)
[2019-02-01 07:59] LABS: Platelet Count 70 k/uL (150-450); WBC 0.4 k/uL (3.8-10.6)
[2019-02-01] MEDS: HYDROCORTISONE SUPPOSITORY 25 MG SUPP RECTAL SCH (08:38)
[2019-02-01] MEDS: VENCLEXTA 100 MG PO SCH (08:38)
[2019-02-01] MEDS: METOPROLOL SUCCINATE (ER) 100 MG TAB.ER.24H PO SCH (08:38)
[2019-02-01] MEDS: PANTOPRAZOLE 40 MG TABLET PO SCH (08:39)
[2019-02-01] MEDS: POLYETHYLENE GLYCOL 3350 17 GM POWD.PACK PO SCH ×2 (08:39→10:50)
[2019-02-01] MEDS: TAMSULOSIN 0.4 MG CAP.ER.24H PO SCH (08:39)
[2019-02-01] MEDS: ISOSORBIDE MONONITRATE ER 30 MG TAB.ER.24H PO SCH (08:39)
[2019-02-01] MEDS: MAGNESIUM OXIDE 400 MG TAB PO SCH (08:39)
[2019-02-01] MEDS: ONDANSETRON 4 MG TAB PO SCH (08:39)
[2019-02-01] MEDS: ACYCLOVIR 200 MG CAP PO SCH (08:39)
[2019-02-01] MEDS: metFORMIN 500 MG TAB PO SCH (08:39)
[2019-02-01] MEDS: NORTRIPTYLINE 25 MG CAP PO SCH (08:39)
[2019-02-01] MEDS: amLODIPine 5 MG TAB PO SCH (08:39)
[2019-02-01] MEDS: DICYCLOMINE 20 MG TAB PO SCH (08:39)
--- NOTE | 2019-02-01 10:47 | P.PN ---
Subjective Progress Note Date: 02/01/19 Principal diagnosis: GI bleeding, on treatment for AML Today in follow-up patient is sitting up in the chair, he states feeling okay, appetite okay, no nausea, denies any bleeding, black or bloody bowel movements. Objective - Vital Signs Vital signs: Vital Signs Temp 98.0 F 02/01/19 05:18 Pulse 81 02/01/19 05:18 Resp 16 02/01/19 05:18 BP 96/54 02/01/19 05:18 Pulse Ox 99 02/01/19 05:18 Intake & Output 01/31/19 02/01/19 02/01/19 18:59 06:59 18:59 Intake Total 1880 Output Total 500 1200 Balance 1380 -1200 Intake: Oral 1880 Output: Urine 500 1200 Other: Voiding Method Toilet Toilet # Voids 5 2 - Exam Well-developed, well-nourished male sitting up in the chair, no acute distress, alert and oriented 4, normocephalic, atraumatic, anicteric sclera, pale, no respiratory distress, nasal flaring, patient is mobile independently, can shift his own body weight, no visible lower extremity swelling - Labs CBC & Chem 7: 02/01/19 06:47 02/01/19 06:47 Labs: Abnormal Lab Results - Last 24 Hours (Table) 01/31/19 01/31/19 01/31/19 Range/Units 12:43 17:18 20:18 WBC (3.8-10.6) k/uL RBC (4.30-5.90) m/uL Hgb (13.0-17.5) gm/dL Hct (39.0-53.0) % RDW (11.5-15.5) % Plt Count (150-450) k/uL Chloride (98-107) mmol/L Creatinine (0.66-1.25) mg/dL Glucose (74-99) mg/dL POC Glucose (mg/dL) 112 H 118 H 163 H (75-99) mg/dL 02/01/19 02/01/19 02/01/19 Range/Units 06:47 06:47 07:11 WBC 0.4 L* (3.8-10.6) k/uL RBC 2.59 L (4.30-5.90) m/uL Hgb 7.8 L (13.0-17.5) gm/dL Hct 22.8 L (39.0-53.0) % RDW 19.1 H (11.5-15.5) % Plt Count 70 L (150-450) k/uL Chloride 109 H (98-107) mmol/L Creatinine 1.26 H (0.66-1.25) mg/dL Glucose 111 H (74-99) mg/dL POC Glucose (mg/dL) 110 H (75-99) mg/dL Assessment and Plan (1) Pancytopenia Narrative/Plan: This is secondary to acute leukemia as well as treatment. Patient's hemoglobin typically is running between 7 and 8 range, he has been requiring transfusions. Occult blood positivity, due to patient's significantly low white count no endoscopy is planned at this time. Patient is denying gross rectal bleeding, there has not been a significant drop in his hemoglobin. This is monitored very closely in the outpatient setting. Patient will be transfused as needed. Action for the low white count at this time. No platelet transfusion is needed at this time. Current Visit: Yes Status: Acute Priority: High Code(s): D61.818 - OTHER PANCYTOPENIA SNOMED Code(s): 884622420 (2) Acute myeloblastic leukemia Narrative/Plan: Patient is on treatment for the same. He is completing 3 cycles of chemotherapy in the near future with a bone marrow biopsy and aspirate planned for therapy after to evaluate treatment. When is to continue with treatment on time. Current Visit: Yes Status: Chronic Priority: High Code(s): C92.00 - ACUTE MYELOBLASTIC LEUKEMIA, NOT HAVING ACHIEVED REMISSION SNOMED Code(s): 71277297 Plan: Patient is okay from a Hematology/Oncology standpoint to be discharged once he is cleared by internal medicine Patient will keep his scheduled follow-up appointments in the office. Doctor attests: I performed a history and physical examination of this patient and reviewed impression and plan with dictator. I agree with dictators note, documented as a scribe.
[2019-02-01 11:00] LABS: Glucose,Whole Blood 133 mg/dL (75-99)
--- NOTE | 2019-02-01 12:39 | P.DS ---
Providers Date of admission: 01/31/19 08:35 Expected date of discharge: 02/01/19 Attending physician: Micheal Adamson Consults: 01/30/19 11:00 Consult Physician Urgent Consulting Provider: Edgar Vieyra Consult Reason/Comments: est. patient Do you want consulting provider notified?: Yes Consult Physician Urgent Consulting Provider: Khari Alfonso Consult Reason/Comments: gi bleeding Do you want consulting provider notified?: Yes Primary care physician: Micheal Adamson Hospital Course: 73-year-old male was brought to the emergency room with complaints of the rectal bleeding. Patient was evaluated by gastroenterology found to have a rectal fissure. Patient has history of pancytopenia and acute leukemia. Patient has been cleared for discharge from consultants Assessment Rectal bleeding secondary to fissure with acute blood loss anemia Pancytopenia related to chemotherapy and leukemia Neutropenia Chronic kidney stage III History of acute myeloid leukemia History of coronary disease with stent Diabetes type 2 GERD Hypertension History of degenerative joint disease History of prostate cancer History of hypothyroidism Plan Discharge home follow-up with gastroenterology and oncology and family physician Dr.Aaron Adamson Patient Condition at Discharge: Fair Plan - Discharge Summary Discharge Rx Participant: No New Discharge Prescriptions: New Hydrocortisone Suppository [Anusol-Hc] 25 mg RECTAL DAILY supp Acetaminophen Tab [Tylenol] 650 mg PO Q6HR PRN tab PRN Reason: Mild Pain Or Fever > 100.5 Continue Dicyclomine HCl 20 mg PO DAILY Levothyroxine Sodium [Synthroid] 100 mcg PO DAILY Tamsulosin [Flomax] 0.4 mg PO DAILY amLODIPine [Norvasc] 5 mg PO DAILY clonazePAM [KlonoPIN] 0.5 mg PO DAILY PRN PRN Reason: Anxiety Gabapentin [Neurontin] 100 mg PO HS Atorvastatin [Lipitor] 80 mg PO HS #30 tab Nitroglycerin Sl Tabs [Nitrostat] 0.4 mg SUBLINGUAL Q5M PRN #25 tab PRN Reason: Chest Pain Isosorbide Mononitrate ER [Imdur] 30 mg PO DAILY #30 tab.er.24h metFORMIN HCL 1,000 mg PO DAILY #0 Metoprolol Succinate [Toprol Xl] 100 mg PO DAILY Magnesium Oxide 400 mg PO DAILY Nortriptyline [Pamelor] 25 mg PO DAILY Ondansetron [Zofran] 4 mg PO Q8H Polyethylene Glycol 3350 [Miralax] 17 gm PO HS powd.pack Venetoclax [Venclexta] 200 mg PO DAILY Omeprazole 20 - 40 mg PO DAILY HYDROcodone/APAP 5-325MG [[place] 5-325] 1 tab PO Q6HR PRN PRN Reason: Moderate To Severe Pain Docusate [Colace] 100 mg PO DAILY Acyclovir 400 mg PO BID Acetaminophen [Tylenol Extra Strength] 500 mg PO Q6HR PRN PRN Reason: Mild To Moderate Pain Discontinued Ticagrelor [Brilinta] 90 mg PO BID #60 tab Discharge Medication List Dicyclomine HCl 20 mg PO DAILY 05/24/14 [History] Levothyroxine Sodium [Synthroid] 100 mcg PO DAILY 05/24/14 [History] Tamsulosin [Flomax] 0.4 mg PO DAILY 10/11/16 [History] amLODIPine [Norvasc] 5 mg PO DAILY 10/11/16 [History] Gabapentin [Neurontin] 100 mg PO HS 01/26/18 [History] clonazePAM [KlonoPIN] 0.5 mg PO DAILY PRN 01/26/18 [History] Atorvastatin [Lipitor] 80 mg PO HS #30 tab 07/31/18 [Rx] Isosorbide Mononitrate ER [Imdur] 30 mg PO DAILY #30 tab.er.24h 07/31/18 [Rx] Nitroglycerin Sl Tabs [Nitrostat] 0.4 mg SUBLINGUAL Q5M PRN #25 tab 07/31/18 [Rx] metFORMIN HCL 1,000 mg PO DAILY #0 07/31/18 [Rx] Metoprolol Succinate [Toprol Xl] 100 mg PO DAILY 11/26/18 [History] Magnesium Oxide 400 mg PO DAILY 12/05/18 [History] Nortriptyline [Pamelor] 25 mg PO DAILY 12/05/18 [History] Ondansetron [Zofran] 4 mg PO Q8H 12/05/18 [History] Polyethylene Glycol 3350 [Miralax] 17 gm PO HS powd.pack 12/08/18 [Rx] Venetoclax [Venclexta] 200 mg PO DAILY 12/16/18 [History] Omeprazole 20 - 40 mg PO DAILY 01/12/19 [History] Acetaminophen [Tylenol Extra Strength] 500 mg PO Q6HR PRN 01/29/19 [History] Acyclovir 400 mg PO BID 01/29/19 [History] Docusate [Colace] 100 mg PO DAILY 01/29/19 [History] HYDROcodone/APAP 5-325MG [[place] 5-325] 1 tab PO Q6HR PRN 01/29/19 [History] Acetaminophen Tab [Tylenol] 650 mg PO Q6HR PRN tab 02/01/19 [Rx] Hydrocortisone Suppository [Anusol-Hc] 25 mg RECTAL DAILY supp 02/01/19 [Rx] Follow up Appointment(s)/Referral(s): Micheal Adamsno MD [Primary Care Provider] - 1-2 days
== END 2019-02-01 14:05 | disposition home or self-care (01) | DRG 393 ==
LOC: EC 09:35 → 3NMEDONC 11:15 → OBSVTOIN 01-31 08:35
PROVIDERS: ADMIT Family Medicine; ATTEND Family Medicine
DX: K60.2 Anal fissure, unspecified (principal); D61.810 Antineoplastic chemotherapy induced pancytopenia; C92.00 Acute myeloblastic leukemia, not having achieved remission; D62 Acute posthemorrhagic anemia; Z94.81 Bone marrow transplant status; E03.9 Hypothyroidism, unspecified; E11.22 Type 2 diabetes mellitus with diabetic chronic kidney disease; F32.9 Major depressive disorder, single episode, unspecified; I12.9 Hypertensive chronic kidney disease with stage 1 through stage 4 chronic kidney disease, or unspecified chronic kidney disease; I25.2 Old myocardial infarction; I25.10 Atherosclerotic heart disease of native coronary artery without angina pectoris; K21.9 Gastro-esophageal reflux disease without esophagitis; K59.00 Constipation, unspecified; M19.90 Unspecified osteoarthritis, unspecified site; N18.3 Chronic kidney disease, stage 3 (moderate); N40.0 Benign prostatic hyperplasia without lower urinary tract symptoms; T45.1X5A Adverse effect of antineoplastic and immunosuppressive drugs, initial encounter; Z79.02 Long term (current) use of antithrombotics/antiplatelets; Z79.890 Hormone replacement therapy; Z79.899 Other long term (current) drug therapy; Z79.84 Long term (current) use of oral hypoglycemic drugs; Z82.3 Family history of stroke; Z82.49 Family history of ischemic heart disease and other diseases of the circulatory system; Z83.3 Family history of diabetes mellitus; Z85.46 Personal history of malignant neoplasm of prostate; Z87.442 Personal history of urinary calculi; Z87.891 Personal history of nicotine dependence; Z91.81 History of falling; Z95.5 Presence of coronary angioplasty implant and graft; Z98.42 Cataract extraction status, left eye; Z98.41 Cataract extraction status, right eye; Z96.1 Presence of intraocular lens; Z90.49 Acquired absence of other specified parts of digestive tract; Z80.9 Family history of malignant neoplasm, unspecified
CPT/HCPCS: 36415; 74018; 80048; 80053; 85025; 85027; 85610; 85730; 86850; 86900; 86901; 86920; 99284

== ENCOUNTER 2019-02-07 14:40 | Inpatient (IN) | payer MEDICARE, OTHER ==
[2019-02-07] MEDS ORDERED: ONDANSETRON 4 MG/2 ML VIAL IVP STA (15:14)
[2019-02-07] MEDS ORDERED: diphenhydrAMINE 50 MG/ML 1 ML VIAL IVP STA (15:14)
[2019-02-07] MEDS ORDERED: SODIUM CHLORIDE 0.9% 2,000 ML IV STA (15:14)
--- NOTE | 2019-02-07 15:42 | ED ---
Abdominal Pain HPI - General Chief Complaint: Abdominal Pain Stated Complaint: Nausea,vomiting Time Seen by Provider: 02/07/19 14:57 Source: patient, EMS, RN notes reviewed Mode of arrival: EMS Limitations: no limitations - History of Present Illness Initial Comments: 73-year-old male presents emergency Department chief complaint of nausea and vomiting. Patient states symptoms started today. Patient states she has mild lower abdominal pain but states this is per chronic from his constipation. Patient denies any melena, hematochezia, hematemesis or coffee-ground emesis. Patient states she's had vomiting for most the day. Patient also states that he fell couple days ago striking his head causing some bruising around his right periorbital region. He states he has a mild headache denies any neck pain, neck stiffness patient reports no noted fever at home. Patient has no dysuria no hematuria. Patient currently is in between chemotherapy treatment for his leukemia. - Related Data Home Medications Medication Instructions Recorded Confirmed Dicyclomine HCl 20 mg PO DAILY 05/24/14 01/30/19 Levothyroxine Sodium [Synthroid] 100 mcg PO DAILY 05/24/14 01/30/19 Tamsulosin [Flomax] 0.4 mg PO DAILY 10/11/16 01/30/19 amLODIPine [Norvasc] 5 mg PO DAILY 10/11/16 01/30/19 Gabapentin [Neurontin] 100 mg PO HS 01/26/18 01/30/19 clonazePAM [KlonoPIN] 0.5 mg PO DAILY PRN 01/26/18 01/30/19 Metoprolol Succinate [Toprol Xl] 100 mg PO DAILY 11/26/18 01/30/19 Magnesium Oxide 400 mg PO DAILY 12/05/18 01/30/19 Nortriptyline [Pamelor] 25 mg PO DAILY 12/05/18 01/30/19 Ondansetron [Zofran] 4 mg PO Q8H 12/05/18 01/30/19 Venetoclax [Venclexta] 200 mg PO DAILY 12/16/18 01/30/19 Omeprazole 20 - 40 mg PO DAILY 01/12/19 01/30/19 Acetaminophen [Tylenol Extra 500 mg PO Q6HR PRN 01/29/19 01/30/19 Strength] Acyclovir 400 mg PO BID 01/29/19 01/30/19 Docusate [Colace] 100 mg PO DAILY 01/29/19 01/30/19 HYDROcodone/APAP 5-325MG [Sizerock 1 tab PO Q6HR PRN 01/29/19 01/30/19 5-325] Previous Rx's Medication Instructions Recorded Atorvastatin [Lipitor] 80 mg PO HS #30 tab 07/31/18 Isosorbide Mononitrate ER [Imdur] 30 mg PO DAILY #30 tab.er.24h 07/31/18 Nitroglycerin Sl Tabs [Nitrostat] 0.4 mg SUBLINGUAL Q5M PRN #25 tab 07/31/18 metFORMIN HCL 1,000 mg PO DAILY #0 07/31/18 Polyethylene Glycol 3350 [Miralax] 17 gm PO HS powd.pack 12/08/18 Acetaminophen Tab [Tylenol] 650 mg PO Q6HR PRN tab 02/01/19 Hydrocortisone Suppository 25 mg RECTAL DAILY supp 02/01/19 [Anusol-Hc] Allergies Allergy/AdvReac Type Severity Reaction Status Date / Time No Known Allergies Allergy Verified 01/30/19 10:03 Review of Systems ROS Statement: Those systems with pertinent positive or pertinent negative responses have been documented in the HPI. ROS Other: All systems not noted in ROS Statement are negative. 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 [facility], chronic intermittedt R lower abdominal pain with etiology unknown, NIDDM type II, BPH, rectal bleed, diverticulosis, kidney stones, pt denies any kidney disease other than stones."CHIPPED DISC" d/t faLL IN NOVEMBER Last Myocardial Infarction Date:: 2017(non q wave) History of Any Multi-Drug Resistant Organisms: None Reported Past Surgical History: Adenoidectomy, Appendectomy, Cholecystectomy, Heart Catheterization With Stent, Hernia Repair, Orthopedic Surgery, Tonsillectomy Additional Past Surgical History / Comment(s): Bilateral carpal tunnel, bone spur removals to bilateral heels and FEET," 8 cardiac STENTS", B/L KNEE BONE SPURS, CATARACTS JA with lens implants, JA INGUINAL HERNIA REPAIR AND UMBILLICAL. removal of malignant tumor from back,EGD 06-04-17, RT LEG SX FOR TORN LIGAMENT."WAS BORN W/ OVERSIZED LIVER HAD SX TO REDUCE IT'S SIZE" Past Anesthesia/Blood Transfusion Reactions: No Reported Reaction Additional Past Anesthesia/Blood Transfusion Reaction / Comment(s): Pt states he has received blood in the past without reaction. Date of Last Stent Placement:: 2017 Past Psychological History: Depression Smoking Status: Never smoker Past Alcohol Use History: None Reported Past Drug Use History: None Reported - Past Family History Father Family Medical History: Myocardial Infarction ([place]) Additional Family Medical History / Comment(s): PTBA Mother Family Medical History: CVA/TIA, Diabetes Mellitus Additional Family Medical History / Comment(s): Mother of a CVA at the age of 82 yrs. Brother(s) Family Medical History: Cancer Additional Family Medical History / Comment(s): 2 brothers have MS General Exam Limitations: no limitations General appearance: alert, in no apparent distress Head exam: Present: atraumatic, normocephalic, normal inspection Eye exam: Present: normal appearance, PERRL, EOMI. Absent: scleral icterus, conjunctival injection, periorbital swelling ENT exam: Present: normal exam, normal oropharynx, mucous membranes moist Neck exam: Present: normal inspection. Absent: tenderness, meningismus, lymphadenopathy Respiratory exam: Present: normal lung sounds bilaterally. Absent: respiratory distress, wheezes, rales, rhonchi, stridor Cardiovascular Exam: Present: normal rhythm, tachycardia, normal heart sounds. Absent: systolic murmur, diastolic murmur, rubs, gallop, clicks GI/Abdominal exam: Present: soft, tenderness (Mild suprapubic), normal bowel sounds. Absent: distended, guarding, rebound, rigid Back exam: Absent: CVA tenderness (R), CVA tenderness (L) Skin exam: Present: warm, dry, intact, normal color. Absent: rash Course Vital Signs 02/07/19 14:54 Temperature 100.8 F H Pulse Rate 110 H Respiratory 18 Rate Blood Pressure 125/65 O2 Sat by Pulse 100 Oximetry - Reevaluation(s) Reevaluation #1: 02/07/19 16:23 Antibiotics including cefepime and vancomycin were ordered after WBC was recorded at 0.2 with absolute neutrophils 0.1 patient is noted to have a fever of 100.8 with no clear source at this time. Medical Decision Making - Medical Decision Making 73-year-old male presented for nausea vomiting or feeling well. Patient is found to be febrile, neutropenic. Patient had last dose of chemo on Friday. Patient will be admitted for neutropenic fever unknown origin. Patient started on cefepime and vancomycin. - Lab Data Result diagrams: 02/07/19 13:25 02/07/19 13:25 Lab Results 02/07/19 02/07/19 02/07/19 Range/Units 13:25 13:25 15:51 WBC 0.2 L* (3.8-10.6) k/uL RBC 2.44 L (4.30-5.90) m/uL Hgb 7.1 L (13.0-17.5) gm/dL Hct 21.1 L (39.0-53.0) % MCV 86.8 (80.0-100.0) fL MCH 29.1 (25.0-35.0) pg MCHC 33.5 (31.0-37.0) g/dL RDW 20.9 H (11.5-15.5) % Plt Count 32 L D (150-450) k/uL Neutrophils # MEDICATION TECHNICIAN Differential Comment Manual Slide Review Performed Hypochromasia Slight Poikilocytosis Moderate Anisocytosis Moderate Sodium 138 (137-145) mmol/L Potassium 3.8 (3.5-5.1) mmol/L Chloride 105 (98-107) mmol/L Carbon Dioxide 21 L (22-30) mmol/L Anion Gap 12 mmol/L BUN 18 (9-20) mg/dL Creatinine 1.31 H (0.66-1.25) mg/dL Est GFR (CKD-EPI)AfAm 63 (>60 ml/min/1.73 sqM) Est GFR (CKD-EPI)NonAf 55 (>60 ml/min/1.73 sqM) Glucose 158 H (74-99) mg/dL Calcium 8.4 (8.4-10.2) mg/dL Total Bilirubin 1.4 H (0.2-1.3) mg/dL AST 23 (17-59) U/L ALT 28 (21-72) U/L Alkaline Phosphatase 96 (38-126) U/L Total Protein 5.8 L (6.3-8.2) g/dL Albumin 3.1 L (3.5-5.0) g/dL Amylase <30 L (30-110) U/L Lipase 21 L (23-300) U/L Urine Color Urine Appearance (Clear) Urine pH (5.0-8.0) Ur Specific [place] (1.001-1.035) Urine Protein (Negative) Urine Glucose (UA) (Negative) Urine Ketones (Negative) Urine Blood (Negative) Urine Nitrite (Negative) Urine Bilirubin (Negative) Urine Urobilinogen (<2.0) mg/dL Ur Leukocyte Esterase (Negative) Urine RBC (0-5) /hpf Urine WBC (0-5) /hpf Urine Mucus (None) /hpf Influenza Type A RNA Not Detected (Not Detectd) Influenza Type B (PCR) Not Detected (Not Detectd) 02/07/19 Range/Units Unknown WBC (3.8-10.6) k/uL RBC (4.30-5.90) m/uL Hgb (13.0-17.5) gm/dL Hct (39.0-53.0) % MCV (80.0-100.0) fL MCH (25.0-35.0) pg MCHC (31.0-37.0) g/dL RDW (11.5-15.5) % Plt Count (150-450) k/uL Neutrophils # Differential Comment Manual Slide Review Hypochromasia Poikilocytosis Anisocytosis Sodium (137-145) mmol/L Potassium (3.5-5.1) mmol/L Chloride (98-107) mmol/L Carbon Dioxide (22-30) mmol/L Anion Gap mmol/L BUN (9-20) mg/dL Creatinine (0.66-1.25) mg/dL Est GFR (CKD-EPI)AfAm (>60 ml/min/1.73 sqM) Est GFR (CKD-EPI)NonAf (>60 ml/min/1.73 sqM) Glucose (74-99) mg/dL Calcium (8.4-10.2) mg/dL Total Bilirubin (0.2-1.3) mg/dL AST (17-59) U/L ALT (21-72) U/L Alkaline Phosphatase (38-126) U/L Total Protein (6.3-8.2) g/dL Albumin (3.5-5.0) g/dL Amylase (30-110) U/L Lipase (23-300) U/L Urine Color Yellow Urine Appearance Clear (Clear) Urine pH 6.0 (5.0-8.0) Ur Specific [place] 1.025 (1.001-1.035) Urine Protein 1+ H (Negative) Urine Glucose (UA) Negative (Negative) Urine Ketones Negative (Negative) Urine Blood Negative (Negative) Urine Nitrite Negative (Negative) Urine Bilirubin Negative (Negative) Urine Urobilinogen 3.0 (<2.0) mg/dL Ur Leukocyte Esterase Negative (Negative) Urine RBC 1 (0-5) /hpf Urine WBC 3 (0-5) /hpf Urine Mucus Occasional H (None) /hpf Influenza Type A RNA (Not Detectd) Influenza Type B (PCR) (Not Detectd) Disposition Clinical Impression: Neutropenic fever, Nausea & vomiting, Leukemia Disposition: ADMITTED IP TO THIS HOSP Condition: Fair Referrals: Micheal Adamson MD [Primary Care Provider] - 1-2 days
[2019-02-07 15:46] LABS: Anisocytosis Moderate; HCT 21.1 % (39.0-53.0); HGB 7.1 gm/dL (13.0-17.5); Hypochromasia Slight; MCH 29.1 pg (25.0-35.0); MCHC 33.5 g/dL (31.0-37.0); MCV 86.8 fL (80.0-100.0); Mean Platelet Volume 12.8; Poikilocytosis Moderate; RBC 2.44 m/uL (4.30-5.90); RDW 20.9 % (11.5-15.5)
[2019-02-07 15:49] LABS: WBC 0.2 k/uL (3.8-10.6)
[2019-02-07 15:52] LABS: Platelet Count 32 k/uL (150-450)
[2019-02-07 15:59] LABS: ALT 28 U/L (21-72); AST 23 U/L (17-59); Albumin 3.1 g/dL (3.5-5.0); Alkaline Phosphatase 96 U/L (38-126); Amylase <30 U/L (30-110); Anion Gap 12 mmol/L; Blood Urea Nitrogen 18 mg/dL (9-20); Calcium 8.4 mg/dL (8.4-10.2); Carbon Dioxide 21 mmol/L (22-30); Chloride 105 mmol/L (98-107); Glucose 158 mg/dL (74-99); Lipase 21 U/L (23-300); Potassium 3.8 mmol/L (3.5-5.1); Sodium 138 mmol/L (137-145); Total Bilirubin 1.4 mg/dL (0.2-1.3); Total Protein 5.8 g/dL (6.3-8.2)
--- NOTE | 2019-02-07 15:59 | XR ---
Abdomen HISTORY: Nausea, vomiting, lower quadrant abdominal pain Frontal view the abdomen on 2 images Correlation to prior exam 01/30/2019 There are air-fluid levels without bowel distention. Lung bases are clear. Surgical clips are stable. Calcification in the left hemithorax abdomen may be due to diverticulum, is stable and benign. There is no pneumoperitoneum. Degenerative disc changes in the visualized spine. IMPRESSION: Nonobstructive bowel gas pattern.
[2019-02-07] MEDS ORDERED: VANCOMYCIN IV PER PHARMACY 1 EACH MISC MISCELLANE PRN (16:07)
[2019-02-07] MEDS ORDERED: ACETAMINOPHEN TAB 325 MG TAB PO STA (16:07)
[2019-02-07] MEDS ORDERED: CEFEPIME 2 GM in SODIUM CHLORIDE 0.9% 100 ML IVPB STA (16:10)
--- NOTE | 2019-02-07 16:22 | XR ---
EXAMINATION TYPE: XR chest 2V DATE OF EXAM: 02/07/2019 COMPARISON: Prior chest x-ray 12/16/2018 HISTORY: Cough and fever TECHNIQUE: Frontal and lateral views of the chest are obtained. FINDINGS: There is some elevation of the right hemidiaphragm, possibly technical There is no focal a ir space opacity, pleural effusion, or pneumothorax seen. The cardiac silhouette size is stable. T he osseous structures are intact. There are cardiac leads. Patient is rotated. IMPRESSION: No acute cardiopulmonary process.
[2019-02-07] MEDS ORDERED: VANCOMYCIN 1,500 MG in SODIUM CHLORIDE 0.9% 250 ML IVPB ONE (16:30)
--- NOTE | 2019-02-07 16:46 | CT ---
EXAMINATION TYPE: CT brain alison palma DATE OF EXAM: 02/07/2019 COMPARISON: Prior CT brain 12/06/2017 HISTORY: Cough w n/v, pt fell yesterday, hitting head, bruising under RT eye. CT DLP: 1542.7 mGycm Automated exposure control for dose reduction was used. TECHNIQUE: CT scan of the head and cervical spine are performed without contrast. FINDINGS: There is no acute intracranial hemorrhage, mass effect, or midline shift identified. The ventricles and sulci are within normal limits in size. The globes are intact and the visualized sin uses are remarkable for inflammatory change in the ethmoid air cells, left maxillary sinus. Small cep halohematoma is noted. Cerebral vascular calcifications are present. Periventricular white matter ashley ws patchy low attenuation. Cortical atrophy is likely age-related. Cervical spine is visualized in its entirety from C1 through upper thoracic levels and demonstrates s atisfactory alignment without evidence of acute fracture or dislocation. Prevertebral soft tissue ap pears within normal limits. The C1-C2 articulation is unremarkable. There is multilevel facet arthr opathy, spondylosis, foraminal encroachment IMPRESSION: 1. There is no acute fracture or dislocation evident in the cervical spine. 2. No acute intracranial hemorrhage, mass effect, or midline shift is seen.
[2019-02-07 16:58] LABS: Appearance,Urine Clear (Clear); Bilirubin,Urine Negative (Negative); Blood,Urine Negative (Negative); Color,Urine Yellow; Glucose,Urine (UA) Negative (Negative); Ketones,Urine Negative (Negative); Leukocyte Esterase,Urine Negative (Negative); Mucus,Urine Occasional /hpf; Nitrite,Urine Negative (Negative); Protein,Urine 1+ (Negative); RBC,Urine 1 /hpf (0-5); Specific Gravity,Urine 1.025 (1.001-1.035); WBC,Urine 3 /hpf (0-5)
[2019-02-07] MEDS ORDERED: NALOXONE 0.4 MG/ML 1 ML VIAL IV PRN (17:01)
[2019-02-07] MEDS: SODIUM CHLORIDE 0.9% 1,000 ML IV SCH (17:30)
[2019-02-07] MEDS ORDERED: HYDROCORTISONE SUPPOSITORY 25 MG SUPP RECTAL PRN (18:43)
[2019-02-07] MEDS ORDERED: clonazePAM 0.5 MG TAB PO PRN (18:43)
[2019-02-07] MEDS ORDERED: NITROGLYCERIN SL TABS 0.4 MG TAB SUBLINGUAL PRN (18:43)
[2019-02-07] MEDS ORDERED: HYDROcodone/APAP 5-325MG 1 EACH TAB PO PRN (18:43)
[2019-02-07] MEDS ORDERED: ALPRAZolam 0.25 MG TAB PO PRN (18:46)
[2019-02-07 20:15] LABS: Glucose,Whole Blood 144 mg/dL (75-99)
[2019-02-07] MEDS: ONDANSETRON 4 MG TAB PO PRN (20:16)
--- NOTE | 2019-02-07 21:29 | HP ---
HISTORY AND PHYSICAL I am covering for Dr. Adamson. DATE OF SERVICE: 02/07/2019. CHIEF COMPLAINTS: Abdominal pain, nausea, vomiting and fever. HISTORY OF PRESENT ILLNESS: This 73-year-old gentleman with a past medical history of multiple medical problems including CAD stent, history of diabetes, history of GERD, hypertension, history of myocardial infarction being followed by Dr. Micheal Adamson in the outpatient setting had a previous acute myeloid leukemia myelodysplastic syndrome and as well as bone marrow transplant at [facility]. The patient was having abdominal pain which is in the lower part and also had a fever. Patient previously constipated. Patient came to [facility] and found to have fever up to 100.2, white count down to 0.2, and the patient was admitted to the hospital further evaluation and treatment of neutropenic fever. There is no history of headache, loss of consciousness, seizures, chest pain, palpitation, influenza negative. PAST MEDICAL HISTORY: History of diabetes, GERD, GI bleed, myocardial infarction, history of DJD, prostate disorder, history of acute myeloid leukemia, bone marrow transplantation. MEDICATIONS: Prior to admission home medications are: 1. Metformin 1000 mg p.o. daily. 2. Klonopin 0.5 mg daily p.r.n. 3. Norvasc 5 mg p.o. daily. 4. Venetoclax 200 mg. 5. Flomax 0.4 daily. 6. MiraLAX 17 g q.h.s. 7. Zofran 4 mg q.8h p.r.n. 8. Omeprazole 20-40 mg. 9. Pamelor 25 mg. 10.Nitrostat 0.4 mg p.r.n. 11.Toprol-XL 100 mg p.o. daily. 12.Magnesium oxide 400 mg daily. 13.Synthroid 100 mcg p.o. daily. 14.Imdur 30 mg. 15.Anusol-HC 25 mg daily p.r.n. 16.Herod 5 mg q.6h p.r.n. 17.Neurontin 300 mg q.h.s. 18.Colace 100 mg p.o. daily. 19.Dicyclomine 20 mg. 20.Lipitor 80 mg q.h.s. 21.Acyclovir 400 mg p.o. b.i.d. 22.Tylenol 650 q.6h p.r.n. ALLERGIES: None. FAMILY HISTORY: History of myocardial infarction, PTBA. SOCIAL HISTORY: No history of smoking. No alcohol intake. REVIEW OF SYSTEMS: ENT: No diminished vision. No diminished in hearing. Cardiovascular System: As mentioned earlier. Respiration: No cough. GI as mentioned earlier. no dysuria. Nervous system: No numbness or weakness. ALLERGY/IMMUNOLOGY: No asthma or hayfever. MUSCULOSKELETAL: As mentioned earlier. HEMATOLOGY/ONCOLOGY: As mentioned earlier. ENDOCRINE: As mentioned earlier. CONSTITUTIONAL: As mentioned earlier. Dermatology: Negative. Rheumatology: Negative. Psychiatry: As mentioned earlier. PHYSICAL EXAMINATION: The patient is alert and oriented times three. Pulse 105, blood pressure 96/41. Respiratory rate 17. Temperature 100.2, pulse ox 100 percent on room air. HEENT: Conjunctivae normal. NECK: No jugular venous distention. CARDIOVASCULAR: S1, S2 muffled. RESPIRATORY: Breath sounds diminished in the bases. A few scattered rhonchi and crackles. ABDOMEN: Soft, nontender. No mass palpable. No guarding. No rigidity. Legs are no edema. No swelling. CENTRAL NERVOUS SYSTEM: Higher functions as mentioned earlier. Moves all four limbs. Lymphatics: No lymph nodes palpable in the neck, axillae or groin. Skin: No ulcer, rash or bleeding. Skin: No ulcers, rashes or bleeding. Joints: No active deforming arthropathy. LAB STUDIES: WBC 0.2, hemoglobin 7.1. The platelets are 32. Sodium 130. Potassium 3.0. Other labs are noted. The chest x-ray noted no acute cardiopulmonary processes. CT scan of the head and brain showed no acute fracture. ASSESSMENT: 1. Neutropenic fever. 2. Pancytopenia. 3. 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 4. Diabetes mellitus type 2. 5. History of gastroesophageal reflux disease. 6. History of gastrointestinal bleed. 7. Hypertension. 8. History of myocardial infarction. 9. History of coronary artery disease, stent. 10.hypothyroidism. 11.History of recent gastrointestinal bleed, possibly secondary to hemorrhoids. 12.History of hypothyroidism. 13.History of depression. 14.History of degenerative joint disease. 15.FULL CODE. RECOMMENDATIONS AND DISCUSSION: In this 73-year-old gentleman who presented with multiple complex medical issues, we will monitor the patient closely. Continue the current medications, monitoring and symptomatic treatment. Initiate broad-spectrum IV antibiotics. cultures. Resume the home medications. Consult Hematology/Oncology. Repeat labs. Prognosis guarded because of multiple complex medical issues. Further recommendations to follow. A copy of dictation being forwarded to Dr. Micheal Adamson who is the primary physician. Dr. Micheal Adamson will see the patient tomorrow. MMODL / DONALDN: [id number] / MTDD
[2019-02-07] MEDS: ACYCLOVIR 200 MG CAP PO SCH (21:44)
[2019-02-07] MEDS: POLYETHYLENE GLYCOL 3350 17 GM POWD.PACK PO SCH (21:44)
[2019-02-07] MEDS: ATORVASTATIN 80 MG TAB PO SCH (21:44)
[2019-02-07] MEDS: TEMAZEPAM 15 MG CAP PO PRN (21:44)
[2019-02-07] MEDS: GABAPENTIN 100 MG CAP PO SCH (21:44)
[2019-02-07] MEDS: CEFEPIME 2 GM in SODIUM CHLORIDE 0.9% 100 ML IVPB SCH (23:43)
[2019-02-08] MEDS: ACETAMINOPHEN TAB 325 MG TAB PO PRN (06:00)
[2019-02-08] MEDS: SODIUM CHLORIDE 0.9% 1,000 ML IV SCH ×2 (06:00→20:30)
[2019-02-08] MEDS: LEVOTHYROXINE 100 MCG TAB PO SCH (06:00)
[2019-02-08 07:18] LABS: Glucose,Whole Blood 134 mg/dL (75-99)
[2019-02-08] MEDS ORDERED: PANTOPRAZOLE 40 MG TABLET PO SCH (07:30)
[2019-02-08 08:27] LABS: Anisocytosis Moderate; Hypochromasia Slight; MCH 31.4 pg (25.0-35.0); MCHC 34.7 g/dL (31.0-37.0); MCV 90.6 fL (80.0-100.0); Macrocytosis Slight; Mean Platelet Volume 10.4; Poikilocytosis Moderate; RBC 2.16 m/uL (4.30-5.90); RDW 20.3 % (11.5-15.5)
[2019-02-08 08:41] LABS: Calcium 8.1 mg/dL (8.4-10.2); Potassium 3.7 mmol/L (3.5-5.1)
[2019-02-08 08:44] LABS: HCT 19.6 % (39.0-53.0); WBC 0.2 k/uL (3.8-10.6)
[2019-02-08 08:46] LABS: HGB 6.8 gm/dL (13.0-17.5)
[2019-02-08 08:47] LABS: Platelet Count 39 k/uL (150-450)
[2019-02-08] MEDS: CEFEPIME 2 GM in SODIUM CHLORIDE 0.9% 100 ML IVPB SCH ×3 (08:47→23:49)
[2019-02-08] MEDS: DICYCLOMINE 20 MG TAB PO SCH (08:57)
[2019-02-08] MEDS: amLODIPine 5 MG TAB PO SCH (08:57)
[2019-02-08] MEDS: ACYCLOVIR 200 MG CAP PO SCH ×2 (08:57→21:51)
[2019-02-08] MEDS: TAMSULOSIN 0.4 MG CAP.ER.24H PO SCH (08:58)
[2019-02-08] MEDS: ISOSORBIDE MONONITRATE ER 30 MG TAB.ER.24H PO SCH (08:58)
[2019-02-08] MEDS: NORTRIPTYLINE 25 MG CAP PO SCH (08:58)
[2019-02-08] MEDS: DOCUSATE 100 MG CAP PO SCH (08:58)
[2019-02-08] MEDS: METOPROLOL SUCCINATE (ER) 100 MG TAB.ER.24H PO SCH (08:58)
[2019-02-08] MEDS: metFORMIN 500 MG TAB PO SCH (08:58)
[2019-02-08] MEDS: ONDANSETRON 4 MG TAB PO PRN ×2 (08:59→19:51)
[2019-02-08] MEDS ORDERED: NON-FORMULARY DRUG (Omeprazole [Omeprazole] 40 MG) PO SCH (09:00)
[2019-02-08 09:06] LABS: Tear Drop Cells Present
[2019-02-08 09:07] LABS: Mixed Population RBC Present; Ovalocytes Present
[2019-02-08] MEDS: VANCOMYCIN 1,500 MG in SODIUM CHLORIDE 0.9% 250 ML IVPB SCH (09:54)
[2019-02-08 11:35] LABS: Glucose,Whole Blood 158 mg/dL (75-99)
[2019-02-08] MEDS: MAGNESIUM OXIDE 400 MG TAB PO SCH (11:37)
--- NOTE | 2019-02-08 12:28 | P.PN ---
Subjective Patient resting in bed talkative. Noted to have cough influenza screen negative chest x-ray negative will continue with oncology consultation. Patient on vancomycin and next thin Objective - Vital Signs Vital signs: Vital Signs Temp 98.8 F 02/08/19 12:03 Pulse 95 02/08/19 12:03 Resp 18 02/08/19 12:03 BP 112/69 02/08/19 12:03 Pulse Ox 100 02/08/19 12:03 Intake & Output 02/07/19 02/08/19 02/08/19 18:59 06:59 18:59 Intake Total 1999 2079 Balance 1999 2079 Weight 94.1 kg Intake: Amount of Fluid Infused ( 2000 ml) Intake, IV Titration 1000 Amount Cefepime 2 gm In Sodium 100 Chloride 0.9% 100 ml @ 200 mls/hr IVPB Q8HR JULIANA Rx#:[id number] Sodium Chloride 0.9% 1, 900 000 ml @ 75 mls/hr IV . [id number] JULIANA Rx#:[id number] Oral 1080 Other: Voiding Method Toilet # Voids 3 - Constitutional General appearance: Present: mild distress - EENT Eyes: Present: PERRLA Ears: bilateral: normal - Neck Neck: Present: normal ROM - Respiratory Respiratory: bilateral: CTA - Cardiovascular Rhythm: regular - Gastrointestinal General gastrointestinal: Present: soft - Integumentary Integumentary: Present: normal - Neurologic Neurologic: Present: CNII-XII intact - Musculoskeletal Musculoskeletal: Present: generalized weakness - Psychiatric Psychiatric: Present: A&O x's 3, appropriate affect, intact judgment & insight - Labs CBC & Chem 7: 02/08/19 08:00 02/08/19 08:00 Labs: Abnormal Lab Results - Last 24 Hours (Table) 02/07/19 02/07/19 02/07/19 Range/Units 13:25 13:25 20:14 WBC 0.2 L* (3.8-10.6) k/uL RBC 2.44 L (4.30-5.90) m/uL Hgb 7.1 L (13.0-17.5) gm/dL Hct 21.1 L (39.0-53.0) % RDW 20.9 H (11.5-15.5) % Plt Count 32 L D (150-450) k/uL Chloride (98-107) mmol/L Carbon Dioxide 21 L (22-30) mmol/L Creatinine 1.31 H (0.66-1.25) mg/dL Glucose 158 H (74-99) mg/dL POC Glucose (mg/dL) 144 H (75-99) mg/dL Calcium (8.4-10.2) mg/dL Total Bilirubin 1.4 H (0.2-1.3) mg/dL Total Protein 5.8 L (6.3-8.2) g/dL Albumin 3.1 L (3.5-5.0) g/dL Amylase <30 L (30-110) U/L Lipase 21 L (23-300) U/L Urine Protein (Negative) Urine Mucus (None) /hpf 02/07/19 02/08/19 02/08/19 Range/Units Unknown 07:16 08:00 WBC 0.2 L* (3.8-10.6) k/uL RBC 2.16 L (4.30-5.90) m/uL Hgb 6.8 L* (13.0-17.5) gm/dL Hct 19.6 L* (39.0-53.0) % RDW 20.3 H (11.5-15.5) % Plt Count 39 L (150-450) k/uL Chloride (98-107) mmol/L Carbon Dioxide (22-30) mmol/L Creatinine (0.66-1.25) mg/dL Glucose (74-99) mg/dL POC Glucose (mg/dL) 134 H (75-99) mg/dL Calcium (8.4-10.2) mg/dL Total Bilirubin (0.2-1.3) mg/dL Total Protein (6.3-8.2) g/dL Albumin (3.5-5.0) g/dL Amylase (30-110) U/L Lipase (23-300) U/L Urine Protein 1+ H (Negative) Urine Mucus Occasional H (None) /hpf 02/08/19 02/08/19 Range/Units 08:00 11:24 WBC (3.8-10.6) k/uL RBC (4.30-5.90) m/uL Hgb (13.0-17.5) gm/dL Hct (39.0-53.0) % RDW (11.5-15.5) % Plt Count (150-450) k/uL Chloride 110 H (98-107) mmol/L Carbon Dioxide 20 L (22-30) mmol/L Creatinine (0.66-1.25) mg/dL Glucose 116 H (74-99) mg/dL POC Glucose (mg/dL) 158 H (75-99) mg/dL Calcium 8.1 L (8.4-10.2) mg/dL Total Bilirubin (0.2-1.3) mg/dL Total Protein (6.3-8.2) g/dL Albumin (3.5-5.0) g/dL Amylase (30-110) U/L Lipase (23-300) U/L Urine Protein (Negative) Urine Mucus (None) /hpf Microbiology - Last 24 Hours (Table) 02/07/19 Unknown Urine Culture - Preliminary Urine,Voided - Imaging and Cardiology Chest x-ray: report reviewed Abdominal x-ray: report reviewed Assessment and Plan Plan: Assessment Neutropenic fever Pancytopenia History of acute myeloid leukemia post bone marrow transplant Diabetes type 2 History of GERD Hypertension History of coronary disease with [place] and stents Hypothyroidism Rectal bleeding recently with hemorrhoids Degenerative joint disease Cough acute bronchitis Plan Continue consultation with oncology Possible transfusion tonight
[2019-02-08 12:46] VITALS: BMI 29.7
[2019-02-08 16:55] LABS: Glucose,Whole Blood 212 mg/dL (75-99)
[2019-02-08] MEDS ORDERED: FILGRASTIM-SNDZ 480 MCG/0.8 ML SYRINGE SQ SCH (17:00)
--- NOTE | 2019-02-08 17:55 | P.CONS ---
History of Present Illness - Reason for Consult Consult date: 02/08/19 Neutropenia fever - AML Requesting physician: Andrew Jaimes - Chief Complaint Fever - History of Present Illness Mr Ling is a pleasant WM, initially seen in consult at [facility] on 02/25/15. He had presented with s/s s/o diverticulitis. Routine CBC noted a pancytopenia with WBC 1.9, plt 128 and Hgb 8.6. CBC in 10/16 had shown a lesser degree of pancytopenia, with WBC 3000, and plt in the 100-150 K range. Her CBC this visit showed a left shift, with few circulating blasts. A bone marrow was done on 03/01/15 and the pt subsequently discharged. He was actually admitted with another episode of diverticulitis, and discharged on antibiotics, which led to resolution. He was seen for his 1st OV on 03/17/15. 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 Typical MDS FISH profile was negative. He was started on Dacogen and had 5 cycles. There was no significant improvement in his WBC, and a marrow was repeated on 08/04/15. This showed essentialy similiar morphology. He was referred to [facility] for possible BMT, and was felt to be a candidate. Continuation of chemo was recommended, till a donor was found, as he was felt to have had a partial response especially with his Hgb. He is now s/p 7 cycles. He underwent allo BMT at the [facility] in 10/17 He did achiever remission and followed there till 10/20. 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 Treatment with Venetoclax and Vidaza was recommended. He wanted to transfer care here and was thus seen back in 11/21. According to recommendations from [facility], the patient was started on Vidaza and Venetoclax. He started cycle 1 on 11/30/18. He now presents with neutropenic fever, moyer cultures are panding, Infectious disease is following, broad spectrum antibiotics and antifungals have been initiated. 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 [facility], chronic intermittedt R lower abdominal pain with etiology unknown, NIDDM type II, BPH, rectal bleed, diverticulosis, kidney stones, pt denies any kidney disease other than stones."CHIPPED DISC" d/t faLL IN NOVEMBER, currently taking oral chemo for AML Last Myocardial Infarction Date:: 2017(non q wave) History of Any Multi-Drug Resistant Organisms: None Reported Past Surgical History: Adenoidectomy, Appendectomy, Cholecystectomy, Heart Catheterization With Stent, Hernia Repair, Orthopedic Surgery, Tonsillectomy Additional Past Surgical History / Comment(s): Bilateral carpal tunnel, bone spur removals to bilateral heels and FEET," 9 cardiac STENTS", B/L KNEE BONE SPURS, CATARACTS JA with lens implants, JA INGUINAL HERNIA REPAIR AND UMBILLICAL. removal of malignant tumor from back,EGD 06-04-17, RT LEG SX FOR TORN LIGAMENT."WAS BORN W/ OVERSIZED LIVER HAD SX TO REDUCE IT'S SIZE" Past Anesthesia/Blood Transfusion Reactions: No Reported Reaction Additional Past Anesthesia/Blood Transfusion Reaction / Comm: Pt states he has received blood in the past without reaction. 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 He drives. Has a person come in to clean. 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 Smoking Status: Never smoker Past Alcohol Use History: None Reported Past Drug Use History: None Reported - Past Family History Father Family Medical History: Myocardial Infarction ([place]) Additional Family Medical History / Comment(s): PTBA Mother Family Medical History: CVA/TIA, Diabetes Mellitus Additional Family Medical History / Comment(s): Mother of a CVA at the age of 82 yrs. Brother(s) Family Medical History: Cancer Additional Family Medical History / Comment(s): 2 brothers have MS Medications and Allergies Home Medications Medication Instructions Recorded Confirmed Type Dicyclomine HCl 20 mg PO DAILY 05/24/14 02/07/19 History Levothyroxine Sodium [Synthroid] 100 mcg PO DAILY 05/24/14 02/07/19 History Tamsulosin [Flomax] 0.4 mg PO DAILY 10/11/16 02/07/19 History amLODIPine [Norvasc] 5 mg PO DAILY 10/11/16 02/07/19 History Gabapentin [Neurontin] 100 mg PO HS 01/26/18 02/07/19 History clonazePAM [KlonoPIN] 0.5 mg PO DAILY PRN 01/26/18 02/07/19 History Atorvastatin [Lipitor] 80 mg PO HS #30 tab 07/31/18 02/07/19 Rx Isosorbide Mononitrate ER [Imdur] 30 mg PO DAILY #30 tab.er.24h 07/31/18 02/07/19 Rx Nitroglycerin Sl Tabs [Nitrostat] 0.4 mg SUBLINGUAL Q5M PRN #25 tab 07/31/18 02/07/19 Rx metFORMIN HCL 1,000 mg PO DAILY #0 07/31/18 02/07/19 Rx Metoprolol Succinate [Toprol Xl] 100 mg PO DAILY 11/26/18 02/07/19 History Magnesium Oxide 400 mg PO DAILY 12/05/18 02/07/19 History Nortriptyline [Pamelor] 25 mg PO DAILY 12/05/18 02/07/19 History Ondansetron [Zofran] 4 mg PO Q8H PRN 12/05/18 02/07/19 History Polyethylene Glycol 3350 [Miralax] 17 gm PO HS powd.pack 12/08/18 02/07/19 Rx Venetoclax [Venclexta] 200 mg PO DAILY 12/16/18 02/07/19 History Omeprazole 20 - 40 mg PO DAILY 01/12/19 02/07/19 History Acyclovir 400 mg PO BID 01/29/19 02/07/19 History Docusate [Colace] 100 mg PO DAILY 01/29/19 02/07/19 History HYDROcodone/APAP 5-325MG [[place] 1 tab PO Q6HR PRN 01/29/19 02/07/19 History 5-325] Acetaminophen Tab [Tylenol] 650 mg PO Q6HR PRN tab 02/01/19 02/07/19 Rx Hydrocortisone Suppository 25 mg RECTAL DAILY PRN 02/07/19 02/07/19 History [Anusol-Hc] Allergies Allergy/AdvReac Type Severity Reaction Status Date / Time No Known Allergies Allergy Verified 02/07/19 17:20 Physical Exam Vitals: Vital Signs Temp Pulse Resp BP Pulse Ox 02/08/19 12:03 98.8 F 95 18 112/69 100 02/08/19 05:00 99.2 F 105 H 16 123/59 96 02/07/19 21:00 98.8 F 102 H 16 118/57 98 02/07/19 18:46 98.2 F 105 H 18 127/65 99 Intake and Output 02/08/19 02/08/19 02/08/19 06:59 14:59 22:59 Intake Total 1240 Balance 1240 Intake: Intake, IV Titration 700 Amount Cefepime 2 gm In Sodium 100 Chloride 0.9% 100 ml @ 200 mls/hr IVPB Q8HR [facility] Rx#:[id number] Sodium Chloride 0.9% 1, 600 000 ml @ 75 mls/hr IV . [id number] [facility] Rx#:[id number] Oral 540 Other: Voiding Method Toilet # Voids 3 2 Weight 94.1 kg Gen: Alert and Oriented No acute distress Head: NCNT Mouth: Erythema and mild thrush Lungs: Expiratory wheeze, no increased effort Heart: Tachy reg Abdomen: S/ND/NT Extremities: No edema Neuro: No sensory or motor deficits. Results CBC & Chem 7: 02/08/19 08:00 02/08/19 08:00 Labs: Abnormal Lab Results - Last 24 Hours (Table) 02/07/19 02/08/19 02/08/19 Range/Units 20:14 07:16 08:00 WBC 0.2 L* (3.8-10.6) k/uL RBC 2.16 L (4.30-5.90) m/uL Hgb 6.8 L* (13.0-17.5) gm/dL Hct 19.6 L* (39.0-53.0) % RDW 20.3 H (11.5-15.5) % Plt Count 39 L (150-450) k/uL Chloride (98-107) mmol/L Carbon Dioxide (22-30) mmol/L Glucose (74-99) mg/dL POC Glucose (mg/dL) 144 H 134 H (75-99) mg/dL Calcium (8.4-10.2) mg/dL 02/08/19 02/08/19 02/08/19 Range/Units 08:00 11:24 16:54 WBC (3.8-10.6) k/uL RBC (4.30-5.90) m/uL Hgb (13.0-17.5) gm/dL Hct (39.0-53.0) % RDW (11.5-15.5) % Plt Count (150-450) k/uL Chloride 110 H (98-107) mmol/L Carbon Dioxide 20 L (22-30) mmol/L Glucose 116 H (74-99) mg/dL POC Glucose (mg/dL) 158 H 212 H (75-99) mg/dL Calcium 8.1 L (8.4-10.2) mg/dL Microbiology - Last 24 Hours (Table) 02/07/19 Unknown Urine Culture - Preliminary Urine,Voided Assessment and Plan Plan: Assessment and Recommendations: 1. AML - - Continue on Venclexta as indicated - Awaiting count recovery for repeat Bone Marrow Biopsy - No growth factors at this time 2. Febrile Neutropenia: - Influenza neg - Blood cultures and urine pending - Vanco, Cefepime, Acyclovir and Clomatrozole lozenges - Irradiated blood only, transfuse hemoglobin less than 7 and platlets less than 10. Continue supportive care Physician Attes: I have completed the full history and physical and agree with above dictation, I have devloped the complete impression and plan, above dictation as a scribe.
[2019-02-08] MEDS: BENZOCAINE/MENTHOL LOZENG 1 EACH LOZENGE MUCOUS MEM PRN (18:54)
[2019-02-08 19:53] LABS: Glucose,Whole Blood 144 mg/dL (75-99)
[2019-02-08] MEDS ORDERED: ONDANSETRON 4 MG/2 ML VIAL IVP PRN (20:13)
[2019-02-08] MEDS: PANTOPRAZOLE 40 MG/10 ML VIAL IVP SCH (20:25)
[2019-02-08] MEDS: CLOTRIMAZOLE TROCHE 10 MG TROCHE MUCOUS MEM SCH ×2 (20:29→23:03)
--- NOTE | 2019-02-08 20:53 | XR ---
EXAMINATION TYPE: XR chest 1V portable DATE OF EXAM: 02/08/2019 COMPARISON: Yesterday HISTORY: Cough and fever. Short of breath TECHNIQUE: Single frontal view of the chest is obtained. FINDINGS: Heart and mediastinum are normal lungs are clear. Diaphragm is normal. Bony thorax is inta ct. IMPRESSION: No active cardiopulmonary disease. No change compared to yesterday.
[2019-02-08 21:00] LABS: Anisocytosis Moderate; Hypochromasia Slight; MCH 31.7 pg (25.0-35.0); MCHC 35.4 g/dL (31.0-37.0); MCV 89.5 fL (80.0-100.0); Macrocytosis Slight; Mean Platelet Volume 10.4; Poikilocytosis Moderate; RBC 1.84 m/uL (4.30-5.90); RDW 20.5 % (11.5-15.5)
[2019-02-08 21:10] LABS: Albumin 2.5 g/dL (3.5-5.0); Calcium 7.9 mg/dL (8.4-10.2); Potassium 4.2 mmol/L (3.5-5.1); Total Bilirubin 0.7 mg/dL (0.2-1.3)
[2019-02-08 21:12] LABS: HCT 16.5 % (39.0-53.0); HGB 5.8 gm/dL (13.0-17.5); Platelet Count 34 k/uL (150-450); WBC 0.2 k/uL (3.8-10.6)
[2019-02-08] MEDS: ATORVASTATIN 80 MG TAB PO SCH (21:51)
[2019-02-08] MEDS: GABAPENTIN 100 MG CAP PO SCH (21:51)
[2019-02-08] MEDS: POLYETHYLENE GLYCOL 3350 17 GM POWD.PACK PO SCH (21:51)
[2019-02-08 22:48] LABS: Creatine Kinase 68 U/L (55-170)
[2019-02-08 23:00] LABS: Creatine Kinase MB 1.8 ng/mL (0.0-2.4); Troponin I <0.012 ng/mL (0.000-0.034)
[2019-02-09 00:10] LABS: Ovalocytes Present; Polychromasia Present
[2019-02-09] MEDS: VANCOMYCIN 1,500 MG in SODIUM CHLORIDE 0.9% 250 ML IVPB SCH ×2 (00:49→17:28)
[2019-02-09] MEDS: BENZOCAINE/MENTHOL LOZENG 1 EACH LOZENGE MUCOUS MEM PRN ×4 (00:51→19:28)
[2019-02-09] MEDS: CLOTRIMAZOLE TROCHE 10 MG TROCHE MUCOUS MEM SCH ×4 (06:05→19:25)
[2019-02-09] MEDS: LEVOTHYROXINE 100 MCG TAB PO SCH (06:05)
[2019-02-09 07:03] LABS: Glucose,Whole Blood 130 mg/dL (75-99)
[2019-02-09] MEDS: TAMSULOSIN 0.4 MG CAP.ER.24H PO SCH (08:52)
[2019-02-09] MEDS: PANTOPRAZOLE 40 MG/10 ML VIAL IVP SCH ×2 (08:52→21:42)
[2019-02-09] MEDS: ACYCLOVIR 200 MG CAP PO SCH ×2 (08:52→21:42)
[2019-02-09] MEDS: amLODIPine 5 MG TAB PO SCH (08:52)
[2019-02-09] MEDS: DOCUSATE 100 MG CAP PO SCH (08:52)
[2019-02-09] MEDS: ISOSORBIDE MONONITRATE ER 30 MG TAB.ER.24H PO SCH (08:52)
[2019-02-09] MEDS: METOPROLOL SUCCINATE (ER) 100 MG TAB.ER.24H PO SCH (08:53)
[2019-02-09] MEDS: CEFEPIME 2 GM in SODIUM CHLORIDE 0.9% 100 ML IVPB SCH ×2 (08:53→17:28)
[2019-02-09] MEDS: DICYCLOMINE 20 MG TAB PO SCH (08:53)
[2019-02-09] MEDS: NORTRIPTYLINE 25 MG CAP PO SCH (08:53)
[2019-02-09] MEDS: metFORMIN 500 MG TAB PO SCH ×2 (09:10→12:39)
[2019-02-09 09:19] LABS: Albumin 2.6 g/dL (3.5-5.0); Magnesium 1.3 mg/dL (1.6-2.3); Total Bilirubin 1.7 mg/dL (0.2-1.3); Uric Acid 3.5 mg/dL (3.5-8.5)
[2019-02-09 10:01] LABS: Anisocytosis Slight; HCT 22.9 % (39.0-53.0); Hypochromasia Slight; MCH 29.3 pg (25.0-35.0); MCHC 32.7 g/dL (31.0-37.0); MCV 89.7 fL (80.0-100.0); Mean Platelet Volume 9.7; Poikilocytosis Slight; RBC 2.55 m/uL (4.30-5.90); RDW 18.2 % (11.5-15.5); WBC 0.3 k/uL (3.8-10.6)
[2019-02-09 10:02] LABS: HGB 7.5 gm/dL (13.0-17.5); Platelet Count 35 k/uL (150-450)
[2019-02-09] MEDS: SODIUM CHLORIDE 0.9% 1,000 ML IV SCH ×2 (10:29→21:42)
[2019-02-09 11:10] LABS: Glucose,Whole Blood 236 mg/dL (75-99)
[2019-02-09] MEDS: MAGNESIUM OXIDE 400 MG TAB PO SCH (11:47)
--- NOTE | 2019-02-09 11:55 | P.PN ---
Subjective Progress Note Date: 02/09/19 Principal diagnosis: AML Counts are improved today, he is status post PRBC 02/08/19. Hemoglobin today 7.5, Platlets = 35. Mag is 1.3 - supp has been placed Objective - Vital Signs Vital signs: Vital Signs Temp 98.1 F 02/09/19 06:36 Pulse 94 02/09/19 06:36 Resp 17 02/09/19 06:36 BP 118/67 02/09/19 06:36 Pulse Ox 99 02/09/19 06:36 Intake & Output 02/08/19 02/09/19 02/09/19 18:59 06:59 18:59 Intake Total 1989 Balance 1989 Weight 94.1 kg Intake: Intake, IV Titration 1250 Amount Cefepime 2 gm In Sodium 100 Chloride 0.9% 100 ml @ 200 mls/hr IVPB Q8HR [facility] Rx#:[id number] Sodium Chloride 0.9% 1, 900 000 ml @ 75 mls/hr IV . [id number] [facility] Rx#:[id number] Vancomycin 1,500 mg In 250 Sodium Chloride 0.9% 250 ml @ 125 mls/hr IVPB Q16H [facility] Rx#:[id number] Oral 120 Blood Product 620 Rc Irr As1 Unit 310 [id number] Rc Irr As1 Unit 310 [id number] Other: Voiding Method Urinal Urinal # Voids 2 4 - Exam Gen: Alert and Oriented No acute distress Head: NCNT Mouth: Erythema and mild thrush Lungs: Expiratory wheeze, no increased effort Heart: Tachy reg Abdomen: S/ND/NT Extremities: No edema Neuro: No sensory or motor deficits. - Labs CBC & Chem 7: 02/09/19 08:21 02/09/19 08:21 Labs: Abnormal Lab Results - Last 24 Hours (Table) 02/08/19 02/08/19 02/08/19 Range/Units 16:54 19:43 20:37 WBC 0.2 L* (3.8-10.6) k/uL RBC 1.84 L (4.30-5.90) m/uL Hgb 5.8 L* (13.0-17.5) gm/dL Hct 16.5 L* (39.0-53.0) % RDW 20.5 H (11.5-15.5) % Plt Count 34 L (150-450) k/uL Chloride (98-107) mmol/L Glucose (74-99) mg/dL POC Glucose (mg/dL) 212 H 144 H (75-99) mg/dL Calcium (8.4-10.2) mg/dL Magnesium (1.6-2.3) mg/dL Total Bilirubin (0.2-1.3) mg/dL Total Protein (6.3-8.2) g/dL Albumin (3.5-5.0) g/dL Crossmatch 02/08/19 02/08/19 02/09/19 Range/Units 20:37 21:59 07:01 WBC (3.8-10.6) k/uL RBC (4.30-5.90) m/uL Hgb (13.0-17.5) gm/dL Hct (39.0-53.0) % RDW (11.5-15.5) % Plt Count (150-450) k/uL Chloride 112 H (98-107) mmol/L Glucose 129 H (74-99) mg/dL POC Glucose (mg/dL) 130 H (75-99) mg/dL Calcium 7.9 L (8.4-10.2) mg/dL Magnesium (1.6-2.3) mg/dL Total Bilirubin (0.2-1.3) mg/dL Total Protein 5.0 L (6.3-8.2) g/dL Albumin 2.5 L (3.5-5.0) g/dL Crossmatch See Detail 02/09/19 02/09/19 02/09/19 Range/Units 08:21 08:21 11:09 WBC 0.3 L* (3.8-10.6) k/uL RBC 2.55 L (4.30-5.90) m/uL Hgb 7.5 L D (13.0-17.5) gm/dL Hct 22.9 L (39.0-53.0) % RDW 18.2 H (11.5-15.5) % Plt Count 35 L (150-450) k/uL Chloride 113 H (98-107) mmol/L Glucose 112 H (74-99) mg/dL POC Glucose (mg/dL) 236 H (75-99) mg/dL Calcium 8.0 L (8.4-10.2) mg/dL Magnesium 1.3 L (1.6-2.3) mg/dL Total Bilirubin 1.7 H (0.2-1.3) mg/dL Total Protein 5.0 L (6.3-8.2) g/dL Albumin 2.6 L (3.5-5.0) g/dL Crossmatch Microbiology - Last 24 Hours (Table) 02/07/19 Unknown Urine Culture - Final Urine,Voided 02/07/19 15:51 Blood Culture - Preliminary Blood No Growth after 24 hours Assessment and Plan Plan: Assessment and Recommendations: AML - - Continue on Venclexta as indicated - Awaiting count recovery for repeat Bone Marrow Biopsy - No growth factors at this time Febrile Neutropenia: - Influenza neg - Blood cultures and urine pending - Vanco, Cefepime, Acyclovir and Clomatrozole lozenges - Irradiated blood products only, transfuse hemoglobin less than 7 and platlets less than 10. Normocytic Anemia - Secondary to chemotherapy and Acute Leukemia Diagnosis - Hemoglobin has recovered to 7.5, no transfusion indicated at this time - Monitor Daily CBC - Irradiated blood only, transfuse hemoglobin less than 7 and platlets less than 10. Thrombocytopenia: - Monitor for s/s bleeding - No transfusion platlets needed today, stable 35 - Irradiated blood only, transfuse hemoglobin less than 7 and platlets less than 10. Increase Total Bilirubin: - Secondary to two units of PRBC transfused, likely mild component hemolysis, should recover - Monitor CMP Continue supportive care Physician Attes: I have completed the full history and physical and agree with above dictation, I have devloped the complete impression and plan, above dictation as a scribe.
[2019-02-09] MEDS: MAGNESIUM SULFATE-D5W PMX 1 GM in DEXTROSE/WATER 1 100ML.BAG IVPB SCH ×2 (12:39→13:42)
--- NOTE | 2019-02-09 12:39 | P.PN ---
Subjective Patient had an episode of last night of the nausea and vomiting hemoglobin was found 5. Patient is been transfused hemoglobin 7.5 at present. Complains of constipation. States he feels better than last night continues occasional cough Objective - Vital Signs Vital signs: Vital Signs Temp 98.1 F 02/09/19 11:57 Pulse 88 02/09/19 11:57 Resp 17 02/09/19 11:57 BP 123/65 02/09/19 11:57 Pulse Ox 100 02/09/19 11:57 Intake & Output 02/08/19 02/09/19 02/09/19 18:59 06:59 18:59 Intake Total 1989 Balance 1989 Weight 94.1 kg Intake: Intake, IV Titration 1250 Amount Cefepime 2 gm In Sodium 100 Chloride 0.9% 100 ml @ 200 mls/hr IVPB Q8HR [facility] Rx#:[id number] Sodium Chloride 0.9% 1, 900 000 ml @ 75 mls/hr IV . [id number] [facility] Rx#:[id number] Vancomycin 1,500 mg In 250 Sodium Chloride 0.9% 250 ml @ 125 mls/hr IVPB Q16H [facility] Rx#:[id number] Oral 120 Blood Product 620 Rc Irr As1 Unit 310 [id number] Rc Irr As1 Unit 310 [id number] Other: Voiding Method Urinal Urinal # Voids 2 4 - Constitutional General appearance: Present: mild distress - EENT Eyes: Present: PERRLA Ears: bilateral: normal - Neck Neck: Present: normal ROM - Respiratory Respiratory: bilateral: CTA - Cardiovascular Rhythm: regular Abnormal Heart Sounds: Present: systolic murmur - Gastrointestinal General gastrointestinal: Present: soft - Integumentary Integumentary: Present: normal - Neurologic Neurologic: Present: CNII-XII intact - Musculoskeletal Musculoskeletal: Present: generalized weakness - Psychiatric Psychiatric: Present: A&O x's 3, appropriate affect, intact judgment & insight - Labs CBC & Chem 7: 02/09/19 08:21 02/09/19 08:21 Labs: Abnormal Lab Results - Last 24 Hours (Table) 02/08/19 02/08/19 02/08/19 Range/Units 16:54 19:43 20:37 WBC 0.2 L* (3.8-10.6) k/uL RBC 1.84 L (4.30-5.90) m/uL Hgb 5.8 L* (13.0-17.5) gm/dL Hct 16.5 L* (39.0-53.0) % RDW 20.5 H (11.5-15.5) % Plt Count 34 L (150-450) k/uL Chloride (98-107) mmol/L Glucose (74-99) mg/dL POC Glucose (mg/dL) 212 H 144 H (75-99) mg/dL Calcium (8.4-10.2) mg/dL Magnesium (1.6-2.3) mg/dL Total Bilirubin (0.2-1.3) mg/dL Total Protein (6.3-8.2) g/dL Albumin (3.5-5.0) g/dL Crossmatch 02/08/19 02/08/19 02/09/19 Range/Units 20:37 21:59 07:01 WBC (3.8-10.6) k/uL RBC (4.30-5.90) m/uL Hgb (13.0-17.5) gm/dL Hct (39.0-53.0) % RDW (11.5-15.5) % Plt Count (150-450) k/uL Chloride 112 H (98-107) mmol/L Glucose 129 H (74-99) mg/dL POC Glucose (mg/dL) 130 H (75-99) mg/dL Calcium 7.9 L (8.4-10.2) mg/dL Magnesium (1.6-2.3) mg/dL Total Bilirubin (0.2-1.3) mg/dL Total Protein 5.0 L (6.3-8.2) g/dL Albumin 2.5 L (3.5-5.0) g/dL Crossmatch See Detail 02/09/19 02/09/19 02/09/19 Range/Units 08:21 08:21 11:09 WBC 0.3 L* (3.8-10.6) k/uL RBC 2.55 L (4.30-5.90) m/uL Hgb 7.5 L D (13.0-17.5) gm/dL Hct 22.9 L (39.0-53.0) % RDW 18.2 H (11.5-15.5) % Plt Count 35 L (150-450) k/uL Chloride 113 H (98-107) mmol/L Glucose 112 H (74-99) mg/dL POC Glucose (mg/dL) 236 H (75-99) mg/dL Calcium 8.0 L (8.4-10.2) mg/dL Magnesium 1.3 L (1.6-2.3) mg/dL Total Bilirubin 1.7 H (0.2-1.3) mg/dL Total Protein 5.0 L (6.3-8.2) g/dL Albumin 2.6 L (3.5-5.0) g/dL Crossmatch Microbiology - Last 24 Hours (Table) 02/07/19 Unknown Urine Culture - Final Urine,Voided 02/07/19 15:51 Blood Culture - Preliminary Blood No Growth after 24 hours - Imaging and Cardiology Chest x-ray: report reviewed Abdominal x-ray: report reviewed Assessment and Plan Plan: Assessment Neutropenic fever Anemia chronic disease Pancytopenia History of acute myeloid leukemia post bone marrow transplant Diabetes type 2 History of GERD History of GI bleed hypertension Coronary disease with SD and stent Hypothyroidism History of recent rectal bleeding secondary to hemorrhoids Constipation Post blood transfusion Degenerative joint disease Plan Continue consultation with oncology
[2019-02-09] MEDS: VENCLEXTA 100 MG PO SCH (13:42)
[2019-02-09 14:40] LABS: Ovalocytes Present
[2019-02-09 17:15] LABS: Glucose,Whole Blood 135 mg/dL (75-99)
[2019-02-09] MEDS: ACETAMINOPHEN TAB 325 MG TAB PO PRN (17:40)
[2019-02-09 21:32] LABS: Glucose,Whole Blood 119 mg/dL (75-99)
[2019-02-09] MEDS: GABAPENTIN 100 MG CAP PO SCH (21:42)
[2019-02-09] MEDS: POLYETHYLENE GLYCOL 3350 17 GM POWD.PACK PO SCH (21:42)
[2019-02-09] MEDS: ATORVASTATIN 80 MG TAB PO SCH (21:42)
[2019-02-09] MEDS: MAG HYDROX/AL HYDROX/SIMETH 30 ML, LIDOCAINE VISCOUS 30 ML, diphenhydrAMINE ELIXIR 75 M... PO SCH ×4 (22:19)
[2019-02-10] MEDS: CEFEPIME 2 GM in SODIUM CHLORIDE 0.9% 100 ML IVPB SCH ×4 (00:09→23:21)
[2019-02-10] MEDS: CLOTRIMAZOLE TROCHE 10 MG TROCHE MUCOUS MEM SCH ×6 (00:11→23:21)
[2019-02-10] MEDS: BENZOCAINE/MENTHOL LOZENG 1 EACH LOZENGE MUCOUS MEM PRN ×2 (01:48→11:47)
[2019-02-10] MEDS: LEVOTHYROXINE 100 MCG TAB PO SCH (05:33)
[2019-02-10] MEDS ORDERED: VANCOMYCIN TROUGH DUE 1 EACH MISC MISCELLANE ONE (07:00)
[2019-02-10 07:12] LABS: Glucose,Whole Blood 122 mg/dL (75-99)
[2019-02-10] MEDS: DOCUSATE 100 MG CAP PO SCH (08:41)
[2019-02-10] MEDS: ISOSORBIDE MONONITRATE ER 30 MG TAB.ER.24H PO SCH (08:41)
[2019-02-10] MEDS: amLODIPine 5 MG TAB PO SCH (08:41)
[2019-02-10] MEDS: ACYCLOVIR 200 MG CAP PO SCH ×2 (08:41→20:26)
[2019-02-10] MEDS: TAMSULOSIN 0.4 MG CAP.ER.24H PO SCH (08:41)
[2019-02-10] MEDS: metFORMIN 500 MG TAB PO SCH (08:41)
[2019-02-10] MEDS: PANTOPRAZOLE 40 MG/10 ML VIAL IVP SCH ×2 (08:42→20:26)
[2019-02-10] MEDS: NORTRIPTYLINE 25 MG CAP PO SCH (08:42)
[2019-02-10] MEDS: MAGNESIUM OXIDE 400 MG TAB PO SCH (08:42)
[2019-02-10] MEDS: MAG HYDROX/AL HYDROX/SIMETH 30 ML, LIDOCAINE VISCOUS 30 ML, diphenhydrAMINE ELIXIR 75 M... PO SCH ×12 (08:48→21:41)
[2019-02-10] MEDS: DICYCLOMINE 20 MG TAB PO SCH (08:51)
[2019-02-10] MEDS: METOPROLOL SUCCINATE (ER) 100 MG TAB.ER.24H PO SCH (08:52)
[2019-02-10] MEDS: VENCLEXTA 100 MG PO SCH (08:53)
[2019-02-10 09:47] LABS: Anisocytosis Slight; HCT 24.8 % (39.0-53.0); HGB 7.9 gm/dL (13.0-17.5); Hypochromasia Slight; MCH 29.3 pg (25.0-35.0); MCHC 31.9 g/dL (31.0-37.0); MCV 91.7 fL (80.0-100.0); Mean Platelet Volume 9.8; Poikilocytosis Slight; RBC 2.71 m/uL (4.30-5.90); RDW 18.4 % (11.5-15.5)
[2019-02-10 09:52] LABS: Anion Gap 8 mmol/L; Blood Urea Nitrogen 9 mg/dL (9-20); Calcium 8.4 mg/dL (8.4-10.2); Carbon Dioxide 21 mmol/L (22-30); Chloride 110 mmol/L (98-107); Glucose 167 mg/dL (74-99); Sodium 139 mmol/L (137-145)
[2019-02-10 09:53] LABS: WBC 0.2 k/uL (3.8-10.6)
[2019-02-10 09:54] LABS: Platelet Count 49 k/uL (150-450)
[2019-02-10] MEDS: VANCOMYCIN 1,500 MG in SODIUM CHLORIDE 0.9% 250 ML IVPB SCH ×2 (10:47→20:26)
[2019-02-10 11:36] LABS: Glucose,Whole Blood 148 mg/dL (75-99)
[2019-02-10] MEDS: SODIUM CHLORIDE 0.9% 1,000 ML IV SCH (12:14)
--- NOTE | 2019-02-10 12:35 | P.PN ---
Subjective Progress Note Date: 02/10/19 Principal diagnosis: AML Hemoglobin Stable 7.9 today, platlet recovery is noted, no active bleeding noted Objective - Vital Signs Vital signs: Vital Signs Temp 97.8 F 02/10/19 12:08 Pulse 81 02/10/19 12:08 Resp 18 02/10/19 12:08 BP 125/60 02/10/19 12:08 Pulse Ox 96 02/10/19 12:08 Intake & Output 02/09/19 02/10/19 02/10/19 18:59 06:59 18:59 Intake Total 550 1045 Output Total 400 Balance 150 1045 Intake: IV 550 350 Cefepime 2 gm In Sodium 100 100 Chloride 0.9% 100 ml @ 200 mls/hr IVPB Q8HR [facility] Rx#:[id number] Magnesium Sulfate-D5w Pmx 200 1 gm In Dextrose/Water 1 100ml.bag @ 100 mls/hr IVPB Q1H [facility] Rx#: [id number] Vancomycin 1,500 mg In 250 250 Sodium Chloride 0.9% 250 ml @ 125 mls/hr IVPB Q16H [facility] Rx#:[id number] Intake, IV Titration 575 Amount Sodium Chloride 0.9% 1, 575 000 ml @ 75 mls/hr IV . [id number] [facility] Rx#:[id number] Oral 120 Output: Urine 400 Other: Voiding Method Urinal Urinal # Voids 3 - Exam Gen: Alert and Oriented No acute distress Head: NCNT Mouth: Erythema and mild thrush Lungs: Expiratory wheeze, no increased effort Heart: Tachy reg Abdomen: S/ND/NT Extremities: No edema Neuro: No sensory or motor deficits. - Labs CBC & Chem 7: 02/10/19 08:38 02/10/19 08:38 Labs: Abnormal Lab Results - Last 24 Hours (Table) 02/09/19 02/09/19 02/10/19 Range/Units 17:14 21:30 07:07 WBC (3.8-10.6) k/uL RBC (4.30-5.90) m/uL Hgb (13.0-17.5) gm/dL Hct (39.0-53.0) % RDW (11.5-15.5) % Plt Count (150-450) k/uL Chloride (98-107) mmol/L Carbon Dioxide (22-30) mmol/L Glucose (74-99) mg/dL POC Glucose (mg/dL) 135 H 119 H 122 H (75-99) mg/dL 02/10/19 02/10/19 02/10/19 Range/Units 08:38 08:38 11:34 WBC 0.2 L* (3.8-10.6) k/uL RBC 2.71 L (4.30-5.90) m/uL Hgb 7.9 L (13.0-17.5) gm/dL Hct 24.8 L (39.0-53.0) % RDW 18.4 H (11.5-15.5) % Plt Count 49 L (150-450) k/uL Chloride 110 H (98-107) mmol/L Carbon Dioxide 21 L (22-30) mmol/L Glucose 167 H (74-99) mg/dL POC Glucose (mg/dL) 148 H (75-99) mg/dL Microbiology - Last 24 Hours (Table) 02/07/19 15:51 Blood Culture - Preliminary Blood No Growth after 48 hours Assessment and Plan Plan: Assessment and Recommendations: AML - - Continue on Venclexta as indicated - Awaiting count recovery for repeat Bone Marrow Biopsy - No growth factors at this time Febrile Neutropenia: - Influenza neg - Blood cultures and urine pending - Vanco, Cefepime, Acyclovir and Clomatrozole lozenges - Irradiated blood products only, transfuse hemoglobin less than 7 and platlets less than 10. Normocytic Anemia - Secondary to chemotherapy and Acute Leukemia Diagnosis - Hemoglobin has recovered to 7.5, no transfusion indicated at this time - Monitor Daily CBC - Irradiated blood only, transfuse hemoglobin less than 7 and platlets less than 10. Thrombocytopenia: - Monitor for s/s bleeding - No transfusion platlets needed today, improving = 49K today - Irradiated blood only, transfuse hemoglobin less than 7 and platelets less th an 10. Increase Total Bilirubin: - Secondary to two units of PRBC transfused, likely mild component hemolysis, should recover - Monitor CMP Episode of Nausea and Vomiting: - 02/08/19 Emesis x5, CBC check and hgb had dropped, he was given transfusion and this has since improved. Constipation: Continue supportive care Physician Attes: I have completed the full history and physical and agree with above dictation, I have devloped the complete impression and plan, above dictation as a scribe.
--- NOTE | 2019-02-10 13:01 | P.PN ---
Subjective Patient continues to complain of sore throat. Noted coated tongue has lozenges for EGD states. Hemoglobin the stable at 7.9 Objective - Vital Signs Vital signs: Vital Signs Temp 97.8 F 02/10/19 12:08 Pulse 81 02/10/19 12:08 Resp 18 02/10/19 12:08 BP 125/60 02/10/19 12:08 Pulse Ox 96 02/10/19 12:08 Intake & Output 02/09/19 02/10/19 02/10/19 18:59 06:59 18:59 Intake Total 550 1045 Output Total 400 Balance 150 1045 Intake: IV 550 350 Cefepime 2 gm In Sodium 100 100 Chloride 0.9% 100 ml @ 200 mls/hr IVPB Q8HR [facility] Rx#:[id number] Magnesium Sulfate-D5w Pmx 200 1 gm In Dextrose/Water 1 100ml.bag @ 100 mls/hr IVPB Q1H [facility] Rx#: [id number] Vancomycin 1,500 mg In 250 250 Sodium Chloride 0.9% 250 ml @ 125 mls/hr IVPB Q16H [facility] Rx#:[id number] Intake, IV Titration 575 Amount Sodium Chloride 0.9% 1, 575 000 ml @ 75 mls/hr IV . [id number] [facility] Rx#:[id number] Oral 120 Output: Urine 400 Other: Voiding Method Urinal Urinal # Voids 3 - Constitutional General appearance: Present: mild distress - EENT EENT Comment(s): Coated tongue erythema soft palate Eyes: Present: PERRLA Ears: bilateral: normal - Neck Neck: Present: normal ROM - Respiratory Respiratory: bilateral: CTA - Cardiovascular Rhythm: regular Abnormal Heart Sounds: Present: systolic murmur - Gastrointestinal General gastrointestinal: Present: soft - Integumentary Integumentary: Present: normal - Neurologic Neurologic: Present: CNII-XII intact - Musculoskeletal Musculoskeletal: Present: generalized weakness - Psychiatric Psychiatric: Present: A&O x's 3, appropriate affect, intact judgment & insight - Labs CBC & Chem 7: 02/10/19 08:38 02/10/19 08:38 Labs: Abnormal Lab Results - Last 24 Hours (Table) 02/09/19 02/09/19 02/10/19 Range/Units 17:14 21:30 07:07 WBC (3.8-10.6) k/uL RBC (4.30-5.90) m/uL Hgb (13.0-17.5) gm/dL Hct (39.0-53.0) % RDW (11.5-15.5) % Plt Count (150-450) k/uL Chloride (98-107) mmol/L Carbon Dioxide (22-30) mmol/L Glucose (74-99) mg/dL POC Glucose (mg/dL) 135 H 119 H 122 H (75-99) mg/dL 02/10/19 02/10/19 02/10/19 Range/Units 08:38 08:38 11:34 WBC 0.2 L* (3.8-10.6) k/uL RBC 2.71 L (4.30-5.90) m/uL Hgb 7.9 L (13.0-17.5) gm/dL Hct 24.8 L (39.0-53.0) % RDW 18.4 H (11.5-15.5) % Plt Count 49 L (150-450) k/uL Chloride 110 H (98-107) mmol/L Carbon Dioxide 21 L (22-30) mmol/L Glucose 167 H (74-99) mg/dL POC Glucose (mg/dL) 148 H (75-99) mg/dL Microbiology - Last 24 Hours (Table) 02/07/19 15:51 Blood Culture - Preliminary Blood No Growth after 48 hours Assessment and Plan Plan: Assessment Neutropenic fever Anemia chronic disease hemoglobin stabilized at 7.9 Oral [place] History of 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
[2019-02-10 16:53] LABS: Glucose,Whole Blood 108 mg/dL (75-99)
[2019-02-10] MEDS: ATORVASTATIN 80 MG TAB PO SCH (20:26)
[2019-02-10] MEDS: GABAPENTIN 100 MG CAP PO SCH (20:27)
[2019-02-10] MEDS: POLYETHYLENE GLYCOL 3350 17 GM POWD.PACK PO SCH (20:27)
[2019-02-10 20:39] LABS: Glucose,Whole Blood 162 mg/dL (75-99)
[2019-02-11] MEDS: SODIUM CHLORIDE 0.9% 1,000 ML IV SCH ×3 (01:26→21:45)
[2019-02-11] MEDS: LEVOTHYROXINE 100 MCG TAB PO SCH (06:16)
[2019-02-11] MEDS: CLOTRIMAZOLE TROCHE 10 MG TROCHE MUCOUS MEM SCH ×4 (06:16→21:38)
[2019-02-11 07:13] LABS: Glucose,Whole Blood 111 mg/dL (75-99)
[2019-02-11] MEDS: CEFEPIME 2 GM in SODIUM CHLORIDE 0.9% 100 ML IVPB SCH ×2 (07:51→17:04)
[2019-02-11] MEDS: ACYCLOVIR 200 MG CAP PO SCH ×2 (07:51→21:35)
[2019-02-11] MEDS: ISOSORBIDE MONONITRATE ER 30 MG TAB.ER.24H PO SCH (07:51)
[2019-02-11] MEDS: DOCUSATE 100 MG CAP PO SCH (07:52)
[2019-02-11] MEDS: PANTOPRAZOLE 40 MG/10 ML VIAL IVP SCH ×2 (07:52→21:36)
[2019-02-11] MEDS: metFORMIN 500 MG TAB PO SCH (07:52)
[2019-02-11] MEDS: amLODIPine 5 MG TAB PO SCH (07:52)
[2019-02-11] MEDS: TAMSULOSIN 0.4 MG CAP.ER.24H PO SCH (07:52)
[2019-02-11] MEDS: MAGNESIUM OXIDE 400 MG TAB PO SCH (07:52)
[2019-02-11] MEDS: METOPROLOL SUCCINATE (ER) 100 MG TAB.ER.24H PO SCH (07:53)
[2019-02-11] MEDS: DICYCLOMINE 20 MG TAB PO SCH (07:53)
[2019-02-11] MEDS: NORTRIPTYLINE 25 MG CAP PO SCH (07:53)
[2019-02-11] MEDS: MAG HYDROX/AL HYDROX/SIMETH 30 ML, LIDOCAINE VISCOUS 30 ML, diphenhydrAMINE ELIXIR 75 M... PO SCH ×12 (07:54→21:48)
[2019-02-11] MEDS: VENCLEXTA 100 MG PO SCH (07:57)
[2019-02-11] MEDS: VANCOMYCIN 1,500 MG in SODIUM CHLORIDE 0.9% 250 ML IVPB SCH ×2 (09:12→21:40)
[2019-02-11 10:01] LABS: Anisocytosis Slight; HGB 8.1 gm/dL (13.0-17.5); Hypochromasia Moderate; MCH 29.6 pg (25.0-35.0); MCHC 31.1 g/dL (31.0-37.0); MCV 95.3 fL (80.0-100.0); Macrocytosis Slight; Mean Platelet Volume 9.8; Poikilocytosis Slight; RBC 2.73 m/uL (4.30-5.90); RDW 18.2 % (11.5-15.5)
[2019-02-11 10:06] LABS: Platelet Count 44 k/uL (150-450); WBC 0.2 k/uL (3.8-10.6)
[2019-02-11 10:21] LABS: Blood Urea Nitrogen 7 mg/dL (9-20); Calcium 8.5 mg/dL (8.4-10.2); Chloride 110 mmol/L (98-107); Glucose 162 mg/dL (74-99); Potassium 3.7 mmol/L (3.5-5.1); Sodium 139 mmol/L (137-145)
[2019-02-11 11:03] LABS: Anion Gap 8 mmol/L; Carbon Dioxide 21 mmol/L (22-30)
[2019-02-11 11:56] LABS: Glucose,Whole Blood 114 mg/dL (75-99)
--- NOTE | 2019-02-11 12:11 | P.PN ---
Subjective Patient resting in bed less active than yesterday hemoglobin increased to 8.1. Hopeful discharge soon when the cleared by oncology Objective - Vital Signs Vital signs: Vital Signs Temp 98.2 F 02/11/19 05:00 Pulse 90 02/11/19 05:00 Resp 18 02/11/19 05:00 BP 116/56 02/11/19 05:00 Pulse Ox 97 02/11/19 05:00 Intake & Output 02/10/19 02/11/19 02/11/19 18:59 06:59 18:59 Intake Total 4080 725 Output Total 400 1450 Balance 3680 -725 Intake: IV 350 Cefepime 2 gm In Sodium 100 Chloride 0.9% 100 ml @ 200 mls/hr IVPB Q8HR JULIANA Rx#:[id number] Vancomycin 1,500 mg In 250 Sodium Chloride 0.9% 250 ml @ 125 mls/hr IVPB Q16H JULIANA Rx#:[id number] Intake, IV Titration 1200 375 Amount Sodium Chloride 0.9% 1, 1200 375 000 ml @ 75 mls/hr IV . [id number] JULIANA Rx#:[id number] Oral 2880 Output: Urine 400 1450 Other: Voiding Method Urinal Urinal # Voids 4 2 - Constitutional General appearance: Present: mild distress - EENT EENT Comment(s): Coated tongue Eyes: Present: PERRLA Ears: bilateral: normal - Neck Neck: Present: normal ROM - Respiratory Respiratory: negative: CTA - Cardiovascular Rhythm: regular Abnormal Heart Sounds: Present: systolic murmur - Gastrointestinal General gastrointestinal: Present: soft - Integumentary Integumentary: Present: normal - Neurologic Neurologic: Present: CNII-XII intact - Musculoskeletal Musculoskeletal: Present: generalized weakness - Psychiatric Psychiatric: Present: A&O x's 3, appropriate affect, intact judgment & insight - Labs CBC & Chem 7: 02/11/19 09:04 02/11/19 09:04 Labs: Abnormal Lab Results - Last 24 Hours (Table) 02/10/19 02/10/19 02/11/19 Range/Units 16:49 20:38 07:11 WBC (3.8-10.6) k/uL RBC (4.30-5.90) m/uL Hgb (13.0-17.5) gm/dL Hct (39.0-53.0) % RDW (11.5-15.5) % Plt Count (150-450) k/uL Chloride (98-107) mmol/L Carbon Dioxide (22-30) mmol/L BUN (9-20) mg/dL Glucose (74-99) mg/dL POC Glucose (mg/dL) 108 H 162 H 111 H (75-99) mg/dL 02/11/19 02/11/19 02/11/19 Range/Units 09:04 09:04 11:54 WBC 0.2 L* (3.8-10.6) k/uL RBC 2.73 L (4.30-5.90) m/uL Hgb 8.1 L (13.0-17.5) gm/dL Hct 26.0 L (39.0-53.0) % RDW 18.2 H (11.5-15.5) % Plt Count 44 L (150-450) k/uL Chloride 110 H (98-107) mmol/L Carbon Dioxide 21 L (22-30) mmol/L BUN 7 L (9-20) mg/dL Glucose 162 H (74-99) mg/dL POC Glucose (mg/dL) 114 H (75-99) mg/dL Microbiology - Last 24 Hours (Table) 02/07/19 15:51 Blood Culture - Preliminary Blood No Growth after 72 hours Assessment and Plan Plan: Assessment Neutropenic fever Anemia chronic disease hemoglobin 8.1 Oral Paola Pancytopenia 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
[2019-02-11 12:50] LABS: Poikilocytosis (M) Present; Polychromasia Present
[2019-02-11 12:51] LABS: Tear Drop Cells Present
[2019-02-11 16:35] LABS: Glucose,Whole Blood 102 mg/dL (75-99)
[2019-02-11 20:49] LABS: Glucose,Whole Blood 145 mg/dL (75-99)
[2019-02-11] MEDS: GABAPENTIN 100 MG CAP PO SCH (21:35)
[2019-02-11] MEDS: ATORVASTATIN 80 MG TAB PO SCH (21:35)
--- NOTE | 2019-02-11 22:50 | P.PN ---
Subjective Progress Note Date: 02/11/19 Principal diagnosis: AML Hemoglobin and platlets are showing recovery, WBC neutrophils remain low. Patient up in a chair and tolerating PO intake during follow-up this am Objective - Vital Signs Vital signs: Vital Signs Temp 98.2 F 02/11/19 21:00 Pulse 86 02/11/19 21:00 Resp 18 02/11/19 21:00 BP 154/69 02/11/19 21:00 Pulse Ox 99 02/11/19 21:00 Intake & Output 02/11/19 02/11/19 02/12/19 06:59 18:59 06:59 Intake Total 725 4270 480 Output Total 1450 300 Balance -725 3970 480 Intake: IV 350 Cefepime 2 gm In Sodium 100 Chloride 0.9% 100 ml @ 200 mls/hr IVPB Q8HR JUL[facility] Rx#:[id number] Vancomycin 1,500 mg In 250 Sodium Chloride 0.9% 250 ml @ 125 mls/hr IVPB Q16H JUL[facility]NA Rx#:[id number] Intake, IV Titration 375 1150 Amount Sodium Chloride 0.9% 1, 375 900 000 ml @ 75 mls/hr IV . [id number] JULIANA Rx#:[id number] Vancomycin 1,500 mg In 250 Sodium Chloride 0.9% 250 ml @ 125 mls/hr IVPB Q12HR JULIANA Rx#:[id number] Oral 3120 480 Output: Urine 1450 300 Other: Voiding Method Urinal Urinal Urinal # Voids 2 6 - Exam Gen: Alert and Oriented No acute distress Head: NCNT Mouth: Erythema and mild thrush Lungs: Expiratory wheeze, no increased effort Heart: Tachy reg Abdomen: S/ND/NT Extremities: No edema Neuro: No sensory or motor deficits. - Labs CBC & Chem 7: 02/11/19 09:04 02/11/19 09:04 Labs: Abnormal Lab Results - Last 24 Hours (Table) 02/11/19 02/11/19 02/11/19 Range/Units 07:11 09:04 09:04 WBC 0.2 L* (3.8-10.6) k/uL RBC 2.73 L (4.30-5.90) m/uL Hgb 8.1 L (13.0-17.5) gm/dL Hct 26.0 L (39.0-53.0) % RDW 18.2 H (11.5-15.5) % Plt Count 44 L (150-450) k/uL Chloride 110 H (98-107) mmol/L Carbon Dioxide 21 L (22-30) mmol/L BUN 7 L (9-20) mg/dL Glucose 162 H (74-99) mg/dL POC Glucose (mg/dL) 111 H (75-99) mg/dL 02/11/19 02/11/19 02/11/19 Range/Units 11:54 16:32 20:46 WBC (3.8-10.6) k/uL RBC (4.30-5.90) m/uL Hgb (13.0-17.5) gm/dL Hct (39.0-53.0) % RDW (11.5-15.5) % Plt Count (150-450) k/uL Chloride (98-107) mmol/L Carbon Dioxide (22-30) mmol/L BUN (9-20) mg/dL Glucose (74-99) mg/dL POC Glucose (mg/dL) 114 H 102 H 145 H (75-99) mg/dL Microbiology - Last 24 Hours (Table) 02/07/19 15:51 Blood Culture - Preliminary Blood No Growth after 96 hours Assessment and Plan Plan: Assessment and Recommendations: AML - - Continue on Venclexta as indicated - Awaiting count recovery for repeat Bone Marrow Biopsy - No growth factors at this time Febrile Neutropenia: Afebrile greater than 48 hours - Influenza neg - Blood cultures and urine pending - Vanco, Cefepime, Acyclovir and Clomatrozole lozenges - Irradiated blood products only, transfuse hemoglobin less than 7 and platlets less than 10. Normocytic Anemia - Secondary to chemotherapy and Acute Leukemia Diagnosis - Hemoglobin has recovered to 8.1, no transfusion indicated at this time - Monitor Daily CBC - Irradiated blood only, transfuse hemoglobin less than 7 and platlets less than 10. Thrombocytopenia: - Monitor for s/s bleeding - No transfusion platlets needed today, improving = 44K today - Irradiated blood only, transfuse hemoglobin less than 7 and platelets less than 10. Increase Total Bilirubin: - Secondary to two units of PRBC transfused, likely mild component hemolysis, should recover - Monitor CMP Episode of Nausea and Vomiting: Improved/Resolved - 02/08/19 Emesis x5, CBC check and hgb had dropped, he was given transfusion and this has since improved. - PRN ANtiemetics tolerating PO intake tosay Constipation: - Bowel Regimen Senna, Miralax Continue supportive care Physician Attes: I have completed the full history and physical and agree with above dictation, I have devloped the complete impression and plan, above dictation as a scribe.
[2019-02-12] MEDS: CEFEPIME 2 GM in SODIUM CHLORIDE 0.9% 100 ML IVPB SCH ×3 (00:05→16:06)
[2019-02-12] MEDS: POLYETHYLENE GLYCOL 3350 17 GM POWD.PACK PO SCH ×2 (00:09→21:27)
[2019-02-12] MEDS: CLOTRIMAZOLE TROCHE 10 MG TROCHE MUCOUS MEM SCH ×6 (00:10→23:31)
[2019-02-12] MEDS: BENZOCAINE/MENTHOL LOZENG 1 EACH LOZENGE MUCOUS MEM PRN ×2 (02:08→22:21)
[2019-02-12] MEDS: LEVOTHYROXINE 100 MCG TAB PO SCH (06:22)
[2019-02-12 07:10] LABS: Glucose,Whole Blood 114 mg/dL (75-99)
[2019-02-12] MEDS: amLODIPine 5 MG TAB PO SCH (08:00)
[2019-02-12] MEDS ORDERED: VANCOMYCIN TROUGH DUE 1 EACH MISC MISCELLANE ONE (08:00)
[2019-02-12] MEDS: metFORMIN 500 MG TAB PO SCH (08:00)
[2019-02-12] MEDS: MAGNESIUM OXIDE 400 MG TAB PO SCH (08:00)
[2019-02-12] MEDS: ISOSORBIDE MONONITRATE ER 30 MG TAB.ER.24H PO SCH (08:00)
[2019-02-12] MEDS: ACYCLOVIR 200 MG CAP PO SCH ×2 (08:00→21:27)
[2019-02-12] MEDS: DOCUSATE 100 MG CAP PO SCH (08:00)
[2019-02-12] MEDS: TAMSULOSIN 0.4 MG CAP.ER.24H PO SCH (08:00)
[2019-02-12] MEDS: DICYCLOMINE 20 MG TAB PO SCH (08:01)
[2019-02-12] MEDS: NORTRIPTYLINE 25 MG CAP PO SCH (08:02)
[2019-02-12] MEDS: METOPROLOL SUCCINATE (ER) 100 MG TAB.ER.24H PO SCH (08:02)
[2019-02-12] MEDS: PANTOPRAZOLE 40 MG/10 ML VIAL IVP SCH ×2 (08:02→21:26)
[2019-02-12] MEDS: VENCLEXTA 100 MG PO SCH (08:06)
[2019-02-12 08:36] LABS: Anisocytosis Slight; HCT 23.9 % (39.0-53.0); HGB 8.2 gm/dL (13.0-17.5); Hypochromasia Slight; MCH 31.8 pg (25.0-35.0); MCHC 34.4 g/dL (31.0-37.0); MCV 92.5 fL (80.0-100.0); Macrocytosis Slight; Mean Platelet Volume 10.4; Poikilocytosis Slight; RBC 2.58 m/uL (4.30-5.90); RDW 19.2 % (11.5-15.5)
[2019-02-12 08:37] LABS: WBC 0.2 k/uL (3.8-10.6)
[2019-02-12 08:38] LABS: Platelet Count 43 k/uL (150-450)
[2019-02-12 08:46] LABS: Anion Gap 7 mmol/L; Blood Urea Nitrogen 6 mg/dL (9-20); Calcium 8.6 mg/dL (8.4-10.2); Carbon Dioxide 24 mmol/L (22-30); Chloride 109 mmol/L (98-107); Glucose 134 mg/dL (74-99); Sodium 140 mmol/L (137-145)
[2019-02-12] MEDS: VANCOMYCIN 1,500 MG in SODIUM CHLORIDE 0.9% 250 ML IVPB SCH ×2 (10:58→21:27)
[2019-02-12] MEDS: MAG HYDROX/AL HYDROX/SIMETH 30 ML, LIDOCAINE VISCOUS 30 ML, diphenhydrAMINE ELIXIR 75 M... PO SCH ×12 (10:59→21:25)
[2019-02-12 11:05] LABS: Glucose,Whole Blood 141 mg/dL (75-99)
[2019-02-12 11:09] LABS: Ovalocytes Present; Tear Drop Cells Present
[2019-02-12 11:41] VITALS: RESP 16
[2019-02-12] MEDS: ONDANSETRON 4 MG TAB PO PRN (12:24)
--- NOTE | 2019-02-12 14:23 | P.PN ---
Subjective Progress Note Date: 02/12/19 Principal diagnosis: AML Counts stable, no acute events ok to discharge home from onc standpoint Objective - Vital Signs Vital signs: Vital Signs Temp 98 F 02/12/19 11:19 Pulse 93 02/12/19 11:19 Resp 16 02/12/19 11:19 BP 131/63 02/12/19 11:19 Pulse Ox 100 02/12/19 11:19 Intake & Output 02/11/19 02/12/19 02/12/19 18:59 06:59 18:59 Intake Total 4270 480 Output Total 300 Balance 3970 480 Weight 94.1 kg Intake: Intake, IV Titration 1150 Amount Sodium Chloride 0.9% 1, 900 000 ml @ 75 mls/hr IV . [id number] [facility] Rx#:[id number] Vancomycin 1,500 mg In 250 Sodium Chloride 0.9% 250 ml @ 125 mls/hr IVPB Q12HR [facility] Rx#:[id number] Oral 3120 480 Output: Urine 300 Other: Voiding Method Urinal Toilet Toilet # Voids 6 3 - Exam Gen: Alert and Oriented No acute distress Head: NCNT Mouth: Erythema and mild thrush Lungs: Expiratory wheeze, no increased effort Heart: Tachy reg Abdomen: S/ND/NT Extremities: No edema Neuro: No sensory or motor deficits. - Labs CBC & Chem 7: 02/12/19 08:14 02/12/19 08:14 Labs: Abnormal Lab Results - Last 24 Hours (Table) 02/11/19 02/11/19 02/12/19 Range/Units 16:32 20:46 07:09 WBC (3.8-10.6) k/uL RBC (4.30-5.90) m/uL Hgb (13.0-17.5) gm/dL Hct (39.0-53.0) % RDW (11.5-15.5) % Plt Count (150-450) k/uL Chloride (98-107) mmol/L BUN (9-20) mg/dL Glucose (74-99) mg/dL POC Glucose (mg/dL) 102 H 145 H 114 H (75-99) mg/dL 02/12/19 02/12/19 02/12/19 Range/Units 08:14 08:14 11:04 WBC 0.2 L* (3.8-10.6) k/uL RBC 2.58 L (4.30-5.90) m/uL Hgb 8.2 L (13.0-17.5) gm/dL Hct 23.9 L (39.0-53.0) % RDW 19.2 H (11.5-15.5) % Plt Count 43 L (150-450) k/uL Chloride 109 H (98-107) mmol/L BUN 6 L (9-20) mg/dL Glucose 134 H (74-99) mg/dL POC Glucose (mg/dL) 141 H (75-99) mg/dL Microbiology - Last 24 Hours (Table) 02/07/19 15:51 Blood Culture - Preliminary Blood No Growth after 96 hours Assessment and Plan Plan: Assessment and Recommendations: AML - - Continue on Venclexta as indicated - Awaiting count recovery for repeat Bone Marrow Biopsy - No growth factors at this time Febrile Neutropenia: Afebrile greater than 48 hours - Influenza neg - Blood cultures and urine pending - Vanco, Cefepime, Acyclovir and Clomatrozole lozenges - Irradiated blood products only, transfuse hemoglobin less than 7 and platlets less than 10. Normocytic Anemia - Secondary to chemotherapy and Acute Leukemia Diagnosis - Hemoglobin has recovered to 8.1, no transfusion indicated at this time - Monitor Daily CBC - Irradiated blood only, transfuse hemoglobin less than 7 and platlets less than 10. Thrombocytopenia: - Monitor for s/s bleeding - No transfusion platlets needed today, improving = 44K today - Irradiated blood only, transfuse hemoglobin less than 7 and platelets less than 10. Increase Total Bilirubin: - Secondary to two units of PRBC transfused, likely mild component hemolysis, should recover - Monitor CMP Episode of Nausea and Vomiting: Improved/Resolved - 02/08/19 Emesis x5, CBC check and hgb had dropped, he was given transfusion and this has since improved. - PRN ANtiemetics tolerating PO intake tosay Constipation: - Bowel Regimen Senna, Miralax Plan: Overall counts stabilized, no bleeding, afebrile. - Ok yo discharge from onc standpoint Continue supportive care Physician Attes: I have completed the full history and physical and agree with above dictation, I have devloped the complete impression and plan, above dictation as a scribe.
[2019-02-12 16:57] LABS: Glucose,Whole Blood 112 mg/dL (75-99)
[2019-02-12 20:08] LABS: Glucose,Whole Blood 174 mg/dL (75-99)
--- NOTE | 2019-02-12 21:11 | PN ---
PROGRESS NOTE DATE OF SERVICE: 02/12/2019 I am covering for Dr. Micheal Adamson. This 73-year-old gentleman who was admitted with neutropenic fever had persistent leukopenia 0.2. The patient was given broad-spectrum IV antibiotics. The patient has pancytopenia. Patient also had myelodysplastic syndrome and possibly recurrence of leukemia also. Dr. Brown is following the patient closely. No chest pain. No palpitations. No fever. PAST MEDICAL HISTORY: Reviewed. REVIEW OF SYSTEMS: CARDIOVASCULAR: No angina or palpitations. RESPIRATORY: As mentioned earlier. GI: As mentioned earlier. : No dysuria. CENTRAL NERVOUS SYSTEM: No numbness, weakness. CURRENT MEDICATIONS ARE: Reviewed and include: 1. Winsted 5 mg q.6h p.r.n. 2. Zovirax. 3. Xanax 0.25 t.i.d. 4. Norvasc 5 mg p.o. daily. 5. Lipitor 80 mg. 6. Cepacol. 7. Cefepime IV. 8. Klonopin. 9. Anusol. 10.Imdur. 11.Magnesium oxide. 12.Toprol. 13.Nitrostat. 15.Zofran. 16.MiraLAX. 17.Flomax. 18.Restoril. 19.Vancomycin. PHYSICAL EXAM: Patient is alert, oriented x3. Pulse 84, blood pressure 135/61, respirations 16, temperature 98 degrees, pulse ox 100 percent on room air. HEENT: Conjunctivae normal. NECK: No jugular venous distention. CARDIOVASCULAR: S1, S2 muffled. RESPIRATORY: Breath sounds diminished in the bases. A few scattered rhonchi and crackles. ABDOMEN: Soft, nontender. Legs are no edema. No swelling. CENTRAL NERVOUS SYSTEM: No focal deficits. LAB STUDIES: WBC 0.8, hemoglobin is 8.2. Other labs are noted. ASSESSMENT: 1. Neutropenic fever. 2. Severe leukopenia and pancytopenia. 3. History of myelodysplastic syndrome and possible recurrence of acute leukemia status post bone marrow transplantation. 4. Diabetes mellitus type 2. 5. History of gastroesophageal reflux disease. 6. History of gastrointestinal bleed. 7. Hypertension. 8. History of myocardial infarction. 9. History of coronary artery disease, stent. 10.Hypothyroidism. 11.History of recent gastrointestinal bleed possibly secondary to hemorrhoids. 12.History of hypothyroidism. 13.History of depression. 14.History of degenerative joint disease. 15.FULL CODE. RECOMMENDATIONS AND DISCUSSION: In this 73-year-old gentleman who presented with multiple complex medical issues, we will monitor the patient closely, continue the current medications, management and symptomatic treatment. Continue with broad-spectrum IV antibiotics. Otherwise, I would also recommend repeat labs. Closely follow with Dr. Vieyra. Discussed with Dr. Vieyra. The patient continues to be stable. We will continue to monitor. The patient might be able to be discharged, but overall prognosis extremely guarded because of the extremely low white count. Dr. Vieyra is planning outpatient evaluation. Further recommendations to follow. MMVIKTORL / IJN: [id number] / MTDCollette
[2019-02-12] MEDS: GABAPENTIN 100 MG CAP PO SCH (21:27)
[2019-02-12] MEDS: ATORVASTATIN 80 MG TAB PO SCH (21:27)
[2019-02-12] MEDS: TEMAZEPAM 15 MG CAP PO PRN (23:31)
[2019-02-13] MEDS: CEFEPIME 2 GM in SODIUM CHLORIDE 0.9% 100 ML IVPB SCH ×2 (01:39→08:14)
[2019-02-13] MEDS: SODIUM CHLORIDE 0.9% 1,000 ML IV SCH ×2 (03:11→08:10)
[2019-02-13] MEDS: CLOTRIMAZOLE TROCHE 10 MG TROCHE MUCOUS MEM SCH ×2 (05:56→10:28)
[2019-02-13] MEDS: LEVOTHYROXINE 100 MCG TAB PO SCH (05:56)
[2019-02-13 06:44] LABS: Glucose,Whole Blood 102 mg/dL (75-99)
[2019-02-13 07:18] LABS: Anisocytosis Slight; HCT 24.6 % (39.0-53.0); HGB 7.6 gm/dL (13.0-17.5); Hypochromasia Slight; MCH 28.8 pg (25.0-35.0); Mean Platelet Volume 9.7; Poikilocytosis Slight; RBC 2.64 m/uL (4.30-5.90)
[2019-02-13 07:36] LABS: Anion Gap 4 mmol/L; Blood Urea Nitrogen 6 mg/dL (9-20); Calcium 8.7 mg/dL (8.4-10.2); Carbon Dioxide 26 mmol/L (22-30); Chloride 110 mmol/L (98-107); Glucose 102 mg/dL (74-99); Sodium 140 mmol/L (137-145)
[2019-02-13 07:41] LABS: WBC 0.2 k/uL (3.8-10.6)
[2019-02-13 07:42] LABS: Platelet Count 50 k/uL (150-450)
[2019-02-13] MEDS: PANTOPRAZOLE 40 MG/10 ML VIAL IVP SCH (08:08)
[2019-02-13] MEDS: ACYCLOVIR 200 MG CAP PO SCH (08:15)
[2019-02-13] MEDS: amLODIPine 5 MG TAB PO SCH (08:15)
[2019-02-13] MEDS: ISOSORBIDE MONONITRATE ER 30 MG TAB.ER.24H PO SCH (08:15)
[2019-02-13] MEDS: TAMSULOSIN 0.4 MG CAP.ER.24H PO SCH (08:16)
[2019-02-13] MEDS: MAGNESIUM OXIDE 400 MG TAB PO SCH (08:16)
[2019-02-13] MEDS: DOCUSATE 100 MG CAP PO SCH (08:16)
[2019-02-13] MEDS: metFORMIN 500 MG TAB PO SCH (08:16)
[2019-02-13] MEDS: DICYCLOMINE 20 MG TAB PO SCH (08:19)
[2019-02-13] MEDS: NORTRIPTYLINE 25 MG CAP PO SCH (08:20)
[2019-02-13] MEDS: METOPROLOL SUCCINATE (ER) 100 MG TAB.ER.24H PO SCH (08:20)
[2019-02-13] MEDS: MAG HYDROX/AL HYDROX/SIMETH 30 ML, LIDOCAINE VISCOUS 30 ML, diphenhydrAMINE ELIXIR 75 M... PO SCH ×4 (08:20)
[2019-02-13] MEDS: VENCLEXTA 100 MG PO SCH (08:21)
[2019-02-13] MEDS: VANCOMYCIN 1,500 MG in SODIUM CHLORIDE 0.9% 250 ML IVPB SCH (10:25)
[2019-02-13 11:14] LABS: Glucose,Whole Blood 127 mg/dL (75-99)
[2019-02-13 11:53] VITALS: BP 123/67; PULSE 89; TEMP 97.7
--- NOTE | 2019-02-13 20:09 | DS ---
DISCHARGE SUMMARY DATE OF SERVICE: 02/13/2019 FINAL DIAGNOSES: 1. Neutropenic fever, improved. 2. Severe leukopenia, pancytopenia. 3. History of myelodysplastic syndrome as well as possible acute leukemia, status post bone marrow transplantation. 4. Diabetes mellitus type 2. 5. History of gastroesophageal reflux disease. 6. History of gastrointestinal bleed. 7. Hypertension. 8. History of myocardial infarction. 9. History of coronary artery disease, stent. 10.Hypothyroidism. 11.History of recent gastrointestinal bleed, possibly secondary to hemorrhoids. 12.History of hypothyroidism. 13.History of depression. 14.History of degenerative joint disease. 15.FULL CODE. DISCHARGE DISPOSITION: The patient is discharged in stable condition with guarded prognosis. HISTORY OF PRESENT ILLNESS: This 73-year-old gentleman with a past medical history was admitted with neutropenic fever. 2 cultures are negative at this time. The patient improved significantly. The patient was on broad spectrum IV antibiotics. On exam, vitals are stable. Cardiovascular: S1, S2. Abdomen: Soft. Nervous System: No focal deficits. LABS: At this time shows WBC 0.2, hemoglobin 7.6. DISCHARGE ADVICE: 1. Diet is cardiac diet. 2. Activity is limited until follow up. 3. Follow up with Dr. Adamson in 2-3 days. 4. Follow with Dr. Vieyra as advised. MEDICATIONS: 1. Acyclovir. 400 mg p.o. b.i.d. 2. Iron sulfate 325 mg daily. 3. Colace 100 mg p.o. daily. 4. Dicyclomine 20 mg p.o. daily. 5. Flomax 0.4 daily. 6. Klonopin 0.5 daily p.r.n. 7. Magnesium oxide 400 mg p.o. daily. 8. Neurontin 100 mg q.h.s. 9. Reading 5 mg q.6h p.r.n. 10.Norvasc 5 mg p.o. daily. 11.Omeprazole 20-40 mg. 12.Pamelor 25 mg p.o. daily. 13.Synthroid 100 mcg p.o. daily. 14.Toprol-XL 100 mg p.o. daily. 15.Venclexta 200 mg p.o. daily. 16.Zofran 4 mg t.i.d. p.r.n. 17.Imdur 30 mg p.o. daily. 18.Lipitor 80 mg q.h.s. 19.Metformin 1000 mg p.o. daily. 20.MiraLAX 17 g daily. 21.Mycelex Grisel. 22.Nitrostat 0.4 mg p.r.n. 23.Tylenol p.r.n. 24.Lidocaine viscous t.i.d. p.r.n. 25.Levaquin 500 mg daily for 5 days. Once again the patient is being discharged in stable condition with guarded prognosis. Total time taken 35 minutes. MARILEE / IJN: [id number] / MTDD
== END 2019-02-13 16:25 | disposition home health service (06) | DRG 809 ==
LOC: EC 14:40 → 3NMEDONC 16:57
PROVIDERS: ADMIT Family Medicine; ATTEND Family Medicine
PROC: 30233N1 Transfusion of Nonautologous Red Blood Cells into Peripheral Vein, Percutaneous Approach (ICD-10-PCS; principal; 2019-02-09)
DX: D70.9 Neutropenia, unspecified (principal); Z94.81 Bone marrow transplant status; C92.00 Acute myeloblastic leukemia, not having achieved remission; B37.0 Candidal stomatitis; R50.81 Fever presenting with conditions classified elsewhere; D64.81 Anemia due to antineoplastic chemotherapy; D63.0 Anemia in neoplastic disease; E11.9 Type 2 diabetes mellitus without complications; E03.9 Hypothyroidism, unspecified; J20.9 Acute bronchitis, unspecified; K59.00 Constipation, unspecified; S00.11XA Contusion of right eyelid and periocular area, initial encounter; I25.10 Atherosclerotic heart disease of native coronary artery without angina pectoris; K21.9 Gastro-esophageal reflux disease without esophagitis; I10 Essential (primary) hypertension; F32.9 Major depressive disorder, single episode, unspecified; I25.2 Old myocardial infarction; M19.90 Unspecified osteoarthritis, unspecified site; N40.0 Benign prostatic hyperplasia without lower urinary tract symptoms; T45.1X5A Adverse effect of antineoplastic and immunosuppressive drugs, initial encounter; K64.9 Unspecified hemorrhoids; K57.90 Diverticulosis of intestine, part unspecified, without perforation or abscess without bleeding; Z79.890 Hormone replacement therapy; Z79.84 Long term (current) use of oral hypoglycemic drugs; Z79.899 Other long term (current) drug therapy; Z92.21 Personal history of antineoplastic chemotherapy; Z85.830 Personal history of malignant neoplasm of bone; Z87.442 Personal history of urinary calculi; Z90.49 Acquired absence of other specified parts of digestive tract; Z95.5 Presence of coronary angioplasty implant and graft; Z87.19 Personal history of other diseases of the digestive system; Z91.81 History of falling; Z98.42 Cataract extraction status, left eye; Z98.41 Cataract extraction status, right eye; Z96.1 Presence of intraocular lens; Z82.49 Family history of ischemic heart disease and other diseases of the circulatory system; Z82.3 Family history of stroke; Z83.3 Family history of diabetes mellitus; Z82.0 Family history of epilepsy and other diseases of the nervous system
CPT/HCPCS: 36415; 70450; 71045; 71046; 72125; 74018; 80048; 80053; 80202; 81001; 82150; 82550; 82553; 83605; 83690; 83735; 84484; 84550; 85025; 86850; 86900; 86901; 86920; 87040; 87086; 87502; 94760; 96361; 96365; 96367; 96375; 99285

== ENCOUNTER 2019-02-24 07:07 | Day surgery (SDC) | payer MEDICARE, OTHER ==
[2019-02-24 07:29] VITALS: RESP 16; TEMP 97.5
[2019-02-24] MEDS ORDERED: LACTATED RINGERS 1,000 ML IV ONE (07:43)
[2019-02-24 07:46] LABS: Glucose,Whole Blood 154 mg/dL (75-99)
[2019-02-24] MEDS ORDERED: ONDANSETRON 4 MG/2 ML VIAL IVP ONE (07:47)
[2019-02-24] MEDS ORDERED: PROPOFOL 10 MG/ML 20 ML VIAL IV ONE (08:08)
--- NOTE | 2019-02-24 08:46 | P.PCN ---
Date of Procedure: 02/24/19 Preoperative Diagnosis: AML on induction treatment Postoperative Diagnosis: Same Procedure(s) Performed: Bone marrow aspiration and biopsy Anesthesia: MAC Surgeon: Edgar Vieyra Upholsterer Outside #1: Stated None Estimated Blood Loss (ml): 2 Pathology: other Condition: stable Disposition: same day Indications for Procedure: History of MDS status post allo SCT. Relapsed with AML. On induction treatment. Bone marrow aspiration biopsy done to assess response Operative Findings: Adequate sample Description of Procedure: The procedure was explained in detail to the patient on the floor, and in the office. He presented to the outpatient endoscopy suite where IV access and informed consent was obtained. He was then placed in left lateral decubitus position. The area over both posterior iliac crest was cleaned and prepped with chlorhexidine and sterile draping. IV sedation was then initiated. Local anesthesia was administered with lidocaine to the right posterior iliac crest. A Jamshidi needle was then inserted, and bone marrow aspirate obtained. The procedure was technically difficult, as the patient's bone was quite soft and several aspirate attempts were dry. A total of about 4 passes were made. Ultimately a satisfactory aspirate sample as well as biopsy sample was able to be obtained. On withdrawal of the needle hemostasis was easily achieved. Blood loss was minimal, and recovery from sedation was satisfactory. He appeared to have tolerated the procedure without any obvious immediate complications.
[2019-02-24 08:51] VITALS: PULSE 78
[2019-02-24] MEDS ORDERED: HYDROcodone/APAP 5-325MG 1 EACH TAB PO ONE (09:04)
[2019-02-24 09:08] VITALS: BP 132/78
[2019-02-24 10:06] LABS: Anisocytosis Slight; HCT 27.7 % (39.0-53.0); HGB 8.9 gm/dL (13.0-17.5); Hypochromasia Slight; MCHC 32.2 g/dL (31.0-37.0); MCV 93.1 fL (80.0-100.0); Mean Platelet Volume 9.7; Poikilocytosis Slight; RBC 2.98 m/uL (4.30-5.90); RDW 18.1 % (11.5-15.5)
[2019-02-24 10:09] LABS: WBC 0.3 k/uL (3.8-10.6)
[2019-02-24 10:33] LABS: Platelet Count 85 k/uL (150-450)
== END 2019-02-24 09:37 | disposition home or self-care (01) ==
LOC: OR 07:07
PROVIDERS: ATTEND Internal Medicine Hematology & Oncology
DX: D61.818 Other pancytopenia (principal); D69.6 Thrombocytopenia, unspecified; D64.9 Anemia, unspecified; Z94.84 Stem cells transplant status; E11.9 Type 2 diabetes mellitus without complications; M19.90 Unspecified osteoarthritis, unspecified site; N28.9 Disorder of kidney and ureter, unspecified; I25.10 Atherosclerotic heart disease of native coronary artery without angina pectoris; E07.9 Disorder of thyroid, unspecified; N40.0 Benign prostatic hyperplasia without lower urinary tract symptoms; Z87.442 Personal history of urinary calculi; K21.9 Gastro-esophageal reflux disease without esophagitis; Z79.84 Long term (current) use of oral hypoglycemic drugs; Z79.02 Long term (current) use of antithrombotics/antiplatelets; Z79.82 Long term (current) use of aspirin; Z79.890 Hormone replacement therapy; Z79.899 Other long term (current) drug therapy
CPT/HCPCS: 85025; 38222; J2405; J2704

== ENCOUNTER 2019-04-03 15:52 | Observation (INO) | payer MEDICARE, OTHER ==
--- NOTE | 2019-04-03 16:20 | ED ---
General Adult HPI - General Chief complaint: Neuro Symptoms/Deficit Stated complaint: stroke symptoms Time Seen by Provider: 04/03/19 15:59 Source: EMS Mode of arrival: EMS - History of Present Illness Initial comments: Dictation was produced using [employer] dictation software. please excuse any grammatical, word or spelling errors. Chief Complaint: 73-year-old male presents with episode of right lower extremity weakness. History of Present Illness: This is 73-year-old male. He has past medical history myelodysplastic syndrome, coronary artery disease, CVA. Presents today with 1 minute episode of right lower nava weakness. Patient states he was diagnosed with a CVA approximately one month ago. Patient states he had extensive testing done. 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 He reports having stroke rehab at home. One month ago he reports having suffered a CVA causing right lower extremity weakness. Patient reports that today he was at home helping his brother put on bedsheets. He states that he had some acute onset right lower extremity weakness. He states that he felt like he could not move it. He sat down for several seconds. He states the symptoms last for 30 seconds that he remained controlling his right lower leg. Patient reports that he chronically has right lower extremity weakness secondary to CVA suffered one month ago. He reports having had inpatient workup done here at our facility. Chart review shows that there is no such workup within the last month for CVA. Patient currently feels at baseline. Patient has no complaints at this time. EMS was called patient was brought in for concerns of acute CVA. The ROS documented in this emergency department record has been reviewed and confirmed by me. Those systems with pertinent positive or negative responses have been documented in the HPI. All other systems are other negative and/or noncontributory. PHYSICAL EXAM: General Impression: Alert and oriented x3, not in acute distress HEENT: Normocephalic atraumatic, extra-ocular movements intact, pupils equal and reactive to light bilaterally, mucous membranes moist. Cardiovascular: Heart regular rate and rhythm, S1&S2 audible, no murmurs, rubs or gallops Chest: Lungs clear to auscultation bilaterally, no rhonchi, no wheeze, no rales Abdomen: Bowel sounds present, abdomen soft, non-tender, non-distended, no organomegaly Musculoskeletal: Pulses present and equal in all extremities, no peripheral edema Motor: no focal deficits noted Neurological: CN II-XII grossly intact, no aphasia, no dysarthria, no sensory deficit to light touch, mild shift to right lower extremity Skin: Intact with no visualized rashes Psych: Normal affect and mood ED course: 73-year-old male presents episode of acute right lower extremity weakness. Signs upon arrival are within acceptable limits. It appears the patient is a poor historian. Extensive chart review was performed patient does not have any recent documentation of CVA here in our facility. Patient stopped NIH is 0. He does have demonstrable right lower extremity weakness. Patient's clinical presentation is more suggestive of acute transient ischemic attack Laboratory evaluation obtained. Patient has leukopenia 1.3 which appears to be around patient's baseline. Patient's hemoglobin of 9.1. Patient's baseline rest of CBC is nonacute. Metabolic panel and coag panel is unremarkable. CT of the brain shows no acute intracranial hemorrhage or midline shift. There does however to be a new vague hypodense area mid right cerebellum consistent with acute or subacute infarct new from February 07 study. Clinically patient not showing any signs of active CVA. Patient also has low NIH score. Patient not a candidate for TPA. Patient given aspirin admitted to the hospital with neurology consultation. EKG interpretation: Ventricular rate 80, normal sinus rhythm, CT interval 160, QS 90, QTC 426. No CT prolongation, no QTC prolongation, no ST or T-wave changes noted. . Overall, this EKG is unremarkable - Related Data Home Medications Medication Instructions Recorded Confirmed Dicyclomine HCl 20 mg PO DAILY 05/24/14 04/03/19 Levothyroxine Sodium [Synthroid] 100 mcg PO DAILY 05/24/14 04/03/19 Tamsulosin [Flomax] 0.4 mg PO DAILY 10/11/16 04/03/19 amLODIPine [Norvasc] 5 mg PO DAILY 10/11/16 04/03/19 Gabapentin [Neurontin] 100 mg PO HS 01/26/18 04/03/19 clonazePAM [KlonoPIN] 0.5 mg PO DAILY 01/26/18 04/03/19 Magnesium Oxide 400 mg PO DAILY 12/05/18 04/03/19 Nortriptyline [Pamelor] 25 mg PO DAILY 12/05/18 04/03/19 Ondansetron [Zofran] 4 mg PO Q8H PRN 12/05/18 04/03/19 Acyclovir 400 mg PO BID 01/29/19 04/03/19 Aspirin [Adult Low Dose Aspirin EC] 81 mg PO DAILY 04/03/19 04/03/19 Metoprolol Tartrate [Lopressor] 100 mg PO DAILY 04/03/19 04/03/19 Omeprazole 40 mg PO DAILY 04/03/19 04/03/19 Ticagrelor [Brilinta] 60 mg PO BID 04/03/19 04/03/19 metFORMIN HCL 1,000 mg PO BID 04/03/19 04/03/19 Previous Rx's Medication Instructions Recorded Isosorbide Mononitrate ER [Imdur] 30 mg PO DAILY #30 tab.er.24h 07/31/18 Nitroglycerin Sl Tabs [Nitrostat] 0.4 mg SUBLINGUAL Q5M PRN #25 tab 07/31/18 Allergies Allergy/AdvReac Type Severity Reaction Status Date / Time No Known Allergies Allergy Verified 04/03/19 16:39 Review of Systems ROS Statement: Those systems with pertinent positive or pertinent negative responses have been documented in the HPI. ROS Other: All systems not noted in ROS Statement are negative. 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 [facility], chronic intermittedt R lower abdominal pain with etiology unknown, NIDDM type II, BPH, rectal bleed, diverticulosis, kidney stones, pt denies any kidney disease other than stones."CHIPPED DISC" d/t faLL IN NOVEMBER, currently taking oral chemo for AML Last Myocardial Infarction Date:: 2017(non q wave) History of Any Multi-Drug Resistant Organisms: None Reported Past Surgical History: Adenoidectomy, Appendectomy, Cholecystectomy, Heart Catheterization With Stent, Hernia Repair, Orthopedic Surgery, Tonsillectomy Additional Past Surgical History / Comment(s): Bilateral carpal tunnel, bone spur removals to bilateral heels and FEET," 9 cardiac STENTS", B/L KNEE BONE SPURS, CATARACTS JA with lens implants, JA INGUINAL HERNIA REPAIR AND UMBILLICAL. removal of malignant tumor from back,EGD 06-04-17, RT LEG SX FOR TORN LIGAMENT."WAS BORN W/ OVERSIZED LIVER HAD SX TO REDUCE IT'S SIZE" Past Anesthesia/Blood Transfusion Reactions: No Reported Reaction Additional Past Anesthesia/Blood Transfusion Reaction / Comment(s): Pt states he has received blood in the past without reaction. Date of Last Stent Placement:: 2017 Past Psychological History: Depression Smoking Status: Never smoker Past Alcohol Use History: None Reported Past Drug Use History: None Reported - Past Family History Father Family Medical History: Myocardial Infarction ([place]) Additional Family Medical History / Comment(s): PTBA Mother Family Medical History: CVA/TIA, Diabetes Mellitus Additional Family Medical History / Comment(s): Mother of a CVA at the age of 82 yrs. Brother(s) Family Medical History: Cancer Additional Family Medical History / Comment(s): 2 brothers have MS Course Vital Signs 04/03/19 04/03/19 04/03/19 15:55 15:58 16:00 Temperature 97.6 F Pulse Rate 86 77 81 Respiratory 18 16 Rate Blood Pressure 131/72 131/72 131/72 O2 Sat by Pulse 100 99 100 Oximetry 04/03/19 04/03/19 17:00 18:00 Temperature Pulse Rate 77 71 Respiratory 16 16 Rate Blood Pressure 119/73 O2 Sat by Pulse 98 91 L Oximetry Medical Decision Making - Lab Data Result diagrams: 04/03/19 16:13 04/03/19 16:13 Lab Results 04/03/19 04/03/19 04/03/19 Range/Units 16:05 16:13 16:13 WBC 1.3 L* (3.8-10.6) k/uL RBC 2.71 L (4.30-5.90) m/uL Hgb 9.1 L (13.0-17.5) gm/dL Hct 26.7 L (39.0-53.0) % MCV 98.7 (80.0-100.0) fL MCH 33.5 (25.0-35.0) pg MCHC 33.9 (31.0-37.0) g/dL RDW 19.2 H (11.5-15.5) % Plt Count 48 L (150-450) k/uL Neutrophils % 58 % Lymphocytes % 22 % Monocytes % 6 % Eosinophils % 9 % Basophils % 0 % Neutrophils # 0.8 L (1.3-7.7) k/uL Lymphocytes # 0.3 L (1.0-4.8) k/uL Monocytes # 0.1 (0-1.0) k/uL Eosinophils # 0.1 (0-0.7) k/uL Basophils # 0.0 (0-0.2) k/uL Manual Slide Review Performed Hypochromasia (manual) Present Poikilocytosis (manual Present Anisocytosis Slight Anisocytosis (manual) Present Macrocytosis Slight PT (9.0-12.0) sec INR (<1.2) APTT (22.0-30.0) sec Sodium 138 (137-145) mmol/L Potassium 4.2 (3.5-5.1) mmol/L Chloride 106 (98-107) mmol/L Carbon Dioxide 24 (22-30) mmol/L Anion Gap 8 mmol/L BUN 16 (9-20) mg/dL Creatinine 1.34 H (0.66-1.25) mg/dL Est GFR (CKD-EPI)AfAm 62 (>60 ml/min/1.73 sqM) Est GFR (CKD-EPI)NonAf 53 (>60 ml/min/1.73 sqM) Glucose 120 H (74-99) mg/dL POC Glucose (mg/dL) 108 H (75-99) mg/dL POC Glu Heater Worker ID February Calcium 8.9 (8.4-10.2) mg/dL Total Bilirubin 0.7 (0.2-1.3) mg/dL AST 18 (17-59) U/L ALT 31 (21-72) U/L Alkaline Phosphatase 62 (38-126) U/L Troponin I (0.000-0.034) ng/mL Total Protein 6.1 L (6.3-8.2) g/dL Albumin 3.8 (3.5-5.0) g/dL 04/03/19 04/03/19 Range/Units 16:13 16:13 WBC (3.8-10.6) k/uL RBC (4.30-5.90) m/uL Hgb (13.0-17.5) gm/dL Hct (39.0-53.0) % MCV (80.0-100.0) fL MCH (25.0-35.0) pg MCHC (31.0-37.0) g/dL RDW (11.5-15.5) % Plt Count (150-450) k/uL Neutrophils % % Lymphocytes % % Monocytes % % Eosinophils % % Basophils % % Neutrophils # (1.3-7.7) k/uL Lymphocytes # (1.0-4.8) k/uL Monocytes # (0-1.0) k/uL Eosinophils # (0-0.7) k/uL Basophils # (0-0.2) k/uL Manual Slide Review Hypochromasia (manual) Poikilocytosis (manual Anisocytosis Anisocytosis (manual) Macrocytosis PT 11.9 (9.0-12.0) sec INR 1.1 (<1.2) APTT 24.7 (22.0-30.0) sec Sodium (137-145) mmol/L Potassium (3.5-5.1) mmol/L Chloride (98-107) mmol/L Carbon Dioxide (22-30) mmol/L Anion Gap mmol/L BUN (9-20) mg/dL Creatinine (0.66-1.25) mg/dL Est GFR (CKD-EPI)AfAm (>60 ml/min/1.73 sqM) Est GFR (CKD-EPI)NonAf (>60 ml/min/1.73 sqM) Glucose (74-99) mg/dL POC Glucose (mg/dL) (75-99) mg/dL POC Glu Heater Worker ID Calcium (8.4-10.2) mg/dL Total Bilirubin (0.2-1.3) mg/dL AST (17-59) U/L ALT (21-72) U/L Alkaline Phosphatase (38-126) U/L Troponin I <0.012 (0.000-0.034) ng/mL Total Protein (6.3-8.2) g/dL Albumin (3.5-5.0) g/dL Disposition Clinical Impression: Cerebrovascular accident Disposition: ADMITTED IP TO THIS HOSP Condition: Fair Referrals: Micheal Adamson MD [Primary Care Provider] - 1-2 days Decision Time: 18:12
[2019-04-03 16:24] LABS: Anisocytosis Slight; Basophils % (A) 0 %; Eosinophils # (A) 0.1 k/uL (0-0.7); Eosinophils % (A) 9 %; HCT 26.7 % (39.0-53.0); HGB 9.1 gm/dL (13.0-17.5); Lymphocytes # (A) 0.3 k/uL (1.0-4.8); Lymphocytes % (A) 22 %; MCH 33.5 pg (25.0-35.0); MCHC 33.9 g/dL (31.0-37.0); MCV 98.7 fL (80.0-100.0); Macrocytosis Slight; Mean Platelet Volume 9.8; Monocytes # (A) 0.1 k/uL (0-1.0); Monocytes % (A) 6 %; Neutrophils # (A) 0.8 k/uL (1.3-7.7); Neutrophils % (A) 58 %; RBC 2.71 m/uL (4.30-5.90); RDW 19.2 % (11.5-15.5)
[2019-04-03 16:28] LABS: Glucose,Whole Blood 108 mg/dL (75-99)
[2019-04-03 16:33] LABS: INR 1.1 (<1.2); Partial Thromboplastin Time 24.7 sec (22.0-30.0); Prothrombin Time 11.9 sec (9.0-12.0); WBC 1.3 k/uL (3.8-10.6)
[2019-04-03 16:38] LABS: Potassium 4.2 mmol/L (3.5-5.1)
[2019-04-03 16:39] LABS: Albumin 3.8 g/dL (3.5-5.0); Calcium 8.9 mg/dL (8.4-10.2); Total Bilirubin 0.7 mg/dL (0.2-1.3); Total Protein 6.1 g/dL (6.3-8.2)
--- NOTE | 2019-04-03 16:46 | XR ---
EXAMINATION TYPE: XR chest 2V DATE OF EXAM: 04/03/2019 COMPARISON: Chest x-ray February 08, 2019 HISTORY: Strokelike symptoms of weakness. TECHNIQUE: Frontal and lateral views of the chest are obtained. FINDINGS: There is no focal air space opacity, pleural effusion, or pneumothorax seen. The cardiac silhouette size is within normal limits. Multilevel spurring in thoracic spine is redemonstrated. IMPRESSION: No acute cardiopulmonary process. No significant change from prior.
--- NOTE | 2019-04-03 16:49 | CT ---
EXAMINATION TYPE: CT brain wo con DATE OF EXAM: 04/03/2019 HISTORY: ams. hx of cva CT DLP: 1129.4 mGycm. Automated Exposure Control for Dose Reduction was Utilized. TECHNIQUE: CT scan of the head is performed without contrast. COMPARISON: CT head February 07, 2019 FINDINGS: There is no acute intracranial hemorrhage or midline shift identified. There is diffuse v entricular and sulcal prominence consistent with diffuse age-related cerebral atrophy. There is low- attenuation in the periventricular white matter consistent with chronic small vessel ischemic change. New vague hypodense area right cerebellum felt present axial image 23. The globes are intact and the visualized sinuses are clear. The calvarium is intact. Soft tissue density right external auditory canal likely reflects cerumen. IMPRESSION: No acute intracranial hemorrhage or midline shift. There is mild to moderate diffuse ag e-related cerebral atrophy and chronic small vessel ischemic change redemonstrated without significan t interval change. Of more concern is new vague hypodense area mid right cerebellum consistent with acute or subacute infarct new from February 07 study. Correlate clinically.
[2019-04-03 17:13] LABS: Anisocytosis (M) Present
[2019-04-03 17:14] LABS: Hypochromasia (M) Present; Platelet Count 48 k/uL (150-450); Poikilocytosis (M) Present
[2019-04-03] MEDS ORDERED: ASPIRIN 325 MG TAB PO STA (18:08)
[2019-04-03] MEDS ORDERED: HYDROcodone/APAP 5-325MG 1 EACH TAB PO STA (18:26)
[2019-04-03] MEDS: SODIUM CHLORIDE 0.9% 1,000 ML IV SCH (18:45)
[2019-04-03] MEDS ORDERED: NITROGLYCERIN SL TABS 0.4 MG TAB SUBLINGUAL PRN (20:06)
[2019-04-03] MEDS ORDERED: ONDANSETRON 4 MG/2 ML VIAL IVP PRN (20:14)
[2019-04-03 20:51] LABS: Glucose,Whole Blood 137 mg/dL (75-99)
--- NOTE | 2019-04-03 20:55 | P.CNNES ---
History of Present Illness Consult date: 04/03/19 Reason for Consult: TIA History of Present Illness: Patient is a 73-year-old male, who claims that he had history of recent CVA 2 weeks ago, which affected right side of the body. He stayed in the hospital for one week and went home. Yesterday he suffered from a fall due to losing balance, hitting head on the wall and bruising his left biceps region. He states that he didn't had his eyeglasses on. He noticed right leg was weaker, therefore decided to come to the ER. Patient underwent computed tomography scan of the head, which revealed no acute process. There is mild to moderate diffuse age-related cerebral atrophy and chronic small vessel ischemic change redemonstrated without significant interval change. Of more concern is new vague hypodense area mid right cerebellum consistent with acute or subacute infarct, new from 02/07/2019 study. Chest x-ray showed no acute cardiopulmonary process. EKG showed normal sinus rhythm. Patient was not a candidate for TPA due to his recent CVA and abnormal computed tomography scan. Patient currently not on Brillinta 60 mg bid and aspirin 81 mg daily at home, after his CVA. Patient has history of diabetes since age 17. He has coronary artery disease, and nine cardiac stents. He has hypertension. 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 History of GI bleed. He denies any tobacco or alcohol use. Patient's blood test shows WBC 1.3, hemoglobin 9.1, platelets 48. PT/PTT normal. His hemoglobin A1c 7.7 on 12/06/2018. It always used to run between 5.7 to 6.7. His total cholesterol is 52, LDL 11 on 12/16/2018. B12 462 in 2015. Patient at present feels his leg is back to baseline. No worsening of weakness from his baseline weakness related from recent stroke. Review of Systems Patient denies headache any problem with the vision. 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 [facility], chronic intermittedt R lower abdominal pain with etiology unknown, NIDDM type II, BPH, rectal bleed, diverticulosis, kidney stones, pt denies any kidney disease other than stones."CHIPPED DISC" d/t faLL IN NOVEMBER, currently taking oral chemo for AML Last Myocardial Infarction Date:: 2017(non q wave) History of Any Multi-Drug Resistant Organisms: None Reported Past Surgical History: Adenoidectomy, Appendectomy, Cholecystectomy, Heart Catheterization With Stent, Hernia Repair, Orthopedic Surgery, Tonsillectomy Additional Past Surgical History / Comment(s): Bilateral carpal tunnel, bone spur removals to bilateral heels and FEET," 9 cardiac STENTS", B/L KNEE BONE SPURS, CATARACTS JA with lens implants, JA INGUINAL HERNIA REPAIR AND UMBILLICAL. removal of malignant tumor from back,EGD 06-04-17, RT LEG SX FOR TORN LIGAMENT."WAS BORN W/ OVERSIZED LIVER HAD SX TO REDUCE IT'S SIZE" Past Anesthesia/Blood Transfusion Reactions: No Reported Reaction Additional Past Anesthesia/Blood Transfusion Reaction / Comment(s): Pt states he has received blood in the past without reaction. 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 He drives. Has a person come in to clean. no service,worked 37 years at [employer].HAS A GLUCOMETER. Smoking Status: Never smoker Past Alcohol Use History: None Reported Past Drug Use History: None Reported - Past Family History Father Family Medical History: Myocardial Infarction ([place]) Additional Family Medical History / Comment(s): PTBA Mother Family Medical History: CVA/TIA, Diabetes Mellitus Additional Family Medical History / Comment(s): Mother of a CVA at the age of 82 yrs. Brother(s) Family Medical History: Cancer Additional Family Medical History / Comment(s): 2 brothers have MS Medications and Allergies Home Medications Medication Instructions Recorded Confirmed Type Dicyclomine HCl 20 mg PO DAILY 05/24/14 04/03/19 History Levothyroxine Sodium [Synthroid] 100 mcg PO DAILY 05/24/14 04/03/19 History Tamsulosin [Flomax] 0.4 mg PO DAILY 12/09/16 06/01/19 History amLODIPine [Norvasc] 5 mg PO DAILY 10/11/16 04/03/19 History Gabapentin [Neurontin] 100 mg PO HS 01/26/18 04/03/19 History clonazePAM [KlonoPIN] 0.5 mg PO DAILY 01/26/18 04/03/19 History Isosorbide Mononitrate ER [Imdur] 30 mg PO DAILY #30 tab.er.24h 07/31/18 04/03/19 Rx Nitroglycerin Sl Tabs [Nitrostat] 0.4 mg SUBLINGUAL Q5M PRN #25 tab 07/31/18 04/03/19 Rx Magnesium Oxide 400 mg PO DAILY 12/05/18 04/03/19 History Nortriptyline [Pamelor] 25 mg PO DAILY 12/05/18 04/03/19 History Ondansetron [Zofran] 4 mg PO Q8H PRN 12/05/18 04/03/19 History Acyclovir 400 mg PO BID 01/29/19 04/03/19 History Aspirin [Adult Low Dose Aspirin EC] 81 mg PO DAILY 04/03/19 04/03/19 History Metoprolol Tartrate [Lopressor] 100 mg PO DAILY 04/03/19 04/03/19 History Omeprazole 40 mg PO DAILY 04/03/19 04/03/19 History Ticagrelor [Brilinta] 60 mg PO BID 04/03/19 04/03/19 History metFORMIN HCL 1,000 mg PO BID 04/03/19 04/03/19 History Allergies Allergy/AdvReac Type Severity Reaction Status Date / Time No Known Allergies Allergy Verified 04/03/19 16:39 Physical Examination - Vital Signs Vital Signs: Vital Signs Temp Pulse Pulse Resp BP BP Pulse Ox 04/03/19 19:59 97.7 F 79 18 117/58 92 L 04/03/19 18:55 98.6 F 79 16 108/59 98 04/03/19 18:00 71 16 91 L 04/03/19 17:00 77 16 119/73 98 04/03/19 16:00 81 16 131/72 100 04/03/19 15:58 77 131/72 99 04/03/19 15:55 97.6 F 86 18 131/72 100 Intake and Output 04/03/19 04/03/19 04/03/19 06:59 14:59 22:59 Other: Weight 85.275 kg On examination patient is an elderly male, in no distress. Patient is alert and awake. Speech is mildly dysarthric, no aphasia. On cranial nerve examination, pupils are round and reacting to light, visual sellers are full, extraocular muscles are intact. Face is symmetric and tongue protrudes the midline. On muscle strength testing there is no pronator drift and the strength is normal in arms and legs distally and proximally. Reflexes are 1+ to 2 all over except absent ankles bilaterally. Plantars are downgoing. Sensory to touch is equal. Patient has ataxia for [id number] and [id number] testing only on the right side. Gait deferred. Results - Laboratory Findings CBC and BMP: 04/03/19 16:13 04/03/19 16:13 Abnormal Lab Findings: Abnormal Labs 04/03/19 04/03/19 04/03/19 16:05 16:13 16:13 WBC 1.3 L* RBC 2.71 L Hgb 9.1 L Hct 26.7 L RDW 19.2 H Plt Count 48 L Neutrophils # 0.8 L Lymphocytes # 0.3 L Creatinine 1.34 H Glucose 120 H POC Glucose (mg/dL) 108 H Total Protein 6.1 L Assessment and Plan Assessment: * Status post recent history of right cerebellar stroke 2 weeks ago. Patient suffered from a fall likely due to gait imbalance from cerebellar ataxia. Does not notice any worsening of baseline weakness. * History of myelodysplastic syndrome, acute myeloid leukemia, status post BMT. * Pancytopenia, thrombocytopenia * Diabetes * Hypertension Plan: * Patient will be continued on Brillinta 60 mg twice a day and aspirin 81 mg daily for stroke prevention, as patient was at home. Would not increase aspirin dose to 325 because of risk of hemorrhagic complications related to thrombocytopenia. * We will check carotid Doppler. * Continue statins. * Patient's last 2-D echo from 12/16/2018 showed normal left ventricular size, EF 55-60%. Left atrium is moderately dilated. * We will check B12, folate levels. * PT and OT evaluate gait. Patient is a fall risk.
[2019-04-03] MEDS ORDERED: BRILINTA 60 MG PO SCH (21:00)
[2019-04-03] MEDS: INSULIN ASPART (NovoLOG) 100 UNIT/ML VIAL SQ SCH (21:06)
[2019-04-03] MEDS: ACYCLOVIR 200 MG CAP PO SCH (21:06)
[2019-04-03] MEDS: GABAPENTIN 100 MG CAP PO SCH (21:06)
[2019-04-03] MEDS: TICAGRELOR 90 MG TAB PO SCH (23:09)
[2019-04-04 06:10] LABS: Glucose,Whole Blood 106 mg/dL (75-99)
[2019-04-04] MEDS: INSULIN ASPART (NovoLOG) 100 UNIT/ML VIAL SQ SCH ×4 (06:13→21:12)
[2019-04-04] MEDS: LEVOTHYROXINE 100 MCG TAB PO SCH (06:14)
[2019-04-04] MEDS: TICAGRELOR 90 MG TAB PO SCH ×2 (07:56→20:16)
[2019-04-04] MEDS: ASPIRIN 81 MG PO SCH (07:56)
[2019-04-04] MEDS: ACYCLOVIR 200 MG CAP PO SCH ×2 (07:56→20:16)
[2019-04-04 08:01] LABS: Cholesterol 69 mg/dL (<200); HDL Cholesterol 34 mg/dL (40-60); LDL Cholesterol,Calculated 20 mg/dL (0-99); Triglycerides 76 mg/dL (<150)
[2019-04-04] MEDS ORDERED: ASPIRIN 325 MG TAB PO SCH (09:00)
[2019-04-04 11:46] LABS: Glucose,Whole Blood 91 mg/dL (75-99)
--- NOTE | 2019-04-04 12:36 | P.HPIM ---
History of Present Illness 73-year-old the male with a history of recent CVA does have some baseline speech abnormalities came in with complaints of weakness in the right leg although that weakness is not appreciated now patient does have some bruising, antiplatelet therapy and has a small laceration in the left thumb. Patient had a computed tomography of the head showed diffuse age-related cerebral atrophy patient is known to me appears to have lost significant amount of weight. There is a vague hypodense area in the right cerebellum consistent with the acute to subacute stroke which is new from the past past. 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 Patient had normal creatinine in the past which has gone up to 1.4 now patient will be started on IV fluids and repeat creatinin e tomorrow. Patient was evaluated by neurology no further neurological workup is being done as patient had a recent the echocardiogram and recent extensive workup for this stroke. Aspirin is not being increased at this time as it puts her at high risk for bleeding and patient already has significant bruises everywhere. 7 Review of Systems REVIEW OF SYSTEMS: CONSTITUTIONAL: No fever, no malaise, no fatigue. HEENT: No recent visual problems or hearing problems. Denied any sore throat. CARDIOVASCULAR: No chest pain, orthopnea, PND, no palpitations, no syncope. PULMONARY: No shortness of breath, no cough, no hemoptysis. GASTROINTESTINAL: No diarrhea, no nausea, no vomiting, no abdominal pain. NEUROLOGICAL: As mentioned in HPI HEMATOLOGICAL: Denies any bleeding or petechiae. GENITOURINARY: Denies any burning micturition, frequency, or urgency. MUSCULOSKELETAL/RHEUMATOLOGICAL: Denies any joint pain, swelling, or any muscle pain. ENDOCRINE: Denies any polyuria or polydipsia. The rest of the 14-point review of systems is negative. Past Medical History Past Medical History: Coronary Artery Disease (CAD), Cancer, Chest Pain / Angina, Diabetes Mellitus, GERD/Reflux, GI Bleed, Hyperlipidemia, Hypertension, Myocardial Infarction ([place]), Osteoarthritis (OA), Prostate Disorder, Thyroid Disorder Additional Past Medical History / Comment(s): 2014 diagnosed with bone cancer after found to have cancerous tumor on his back-removed and pt had chemo, 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 [facility], chronic intermittedt R lower abdominal pain with etiology unknown, NIDDM type II, BPH, rectal bleed, diverticulosis, kidney stones, pt denies any kidney disease other than stones."CHIPPED DISC" d/t faLL IN NOVEMBER, currently taking oral chemo for AML Last Myocardial Infarction Date:: 2017(non q wave) History of Any Multi-Drug Resistant Organisms: None Reported Past Surgical History: Adenoidectomy, Appendectomy, Cholecystectomy, Heart Catheterization With Stent, Hernia Repair, Orthopedic Surgery, Tonsillectomy Additional Past Surgical History / Comment(s): Bilateral carpal tunnel, bone s pur removals to bilateral heels and FEET," 9 cardiac STENTS", B/L KNEE BONE SPURS, CATARACTS JA with lens implants, JA INGUINAL HERNIA REPAIR AND UMBILLICAL. removal of malignant tumor from back,EGD 06-04-17, RT LEG SX FOR TORN LIGAMENT."WAS BORN W/ OVERSIZED LIVER HAD SX TO REDUCE IT'S SIZE" Past Anesthesia/Blood Transfusion Reactions: No Reported Reaction Additional Past Anesthesia/Blood Transfusion Reaction / Comment(s): Pt states he has received blood in the past without reaction. Date of Last Stent Placement:: 2017 Additional Psychological History / Comment(s): Pt states he is rn care transition to brother who has MS, is in a wheelchair that lives with him.HAS A RAMP Pt is independent. He drives. Has a person come in to clean. 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 Smoking Status: Never smoker Past Alcohol Use History: None Reported Past Drug Use History: None Reported - Past Family History Father Family Medical History: Myocardial Infarction ([place]) Additional Family Medical History / Comment(s): PTBA Mother Family Medical History: CVA/TIA, Diabetes Mellitus Additional Family Medical History / Comment(s): Mother of a CVA at the age of 82 yrs. Brother(s) Family Medical History: Cancer Additional Family Medical History / Comment(s): 2 brothers have MS Medications and Allergies Home Medications Medication Instructions Recorded Confirmed Type Dicyclomine HCl 20 mg PO DAILY 05/24/14 04/03/19 History Levothyroxine Sodium [Synthroid] 100 mcg PO DAILY 05/24/14 04/03/19 History Tamsulosin [Flomax] 0.4 mg PO DAILY 10/11/16 04/03/19 History amLODIPine [Norvasc] 5 mg PO DAILY 10/11/16 04/03/19 History Gabapentin [Neurontin] 100 mg PO HS 01/26/18 04/03/19 History clonazePAM [KlonoPIN] 0.5 mg PO DAILY 01/26/18 04/03/19 History Isosorbide Mononitrate ER [Imdur] 30 mg PO DAILY #30 tab.er.24h 07/31/18 04/03/19 Rx Nitroglycerin Sl Tabs [Nitrostat] 0.4 mg SUBLINGUAL Q5M PRN #25 tab 07/31/18 04/03/19 Rx Magnesium Oxide 400 mg PO DAILY 12/05/18 04/03/19 History Nortriptyline [Pamelor] 25 mg PO DAILY 12/05/18 04/03/19 History Ondansetron [Zofran] 4 mg PO Q8H PRN 12/05/18 04/03/19 History Acyclovir 400 mg PO BID 01/29/19 04/03/19 History Aspirin [Adult Low Dose Aspirin EC] 81 mg PO DAILY 04/03/19 04/03/19 History Metoprolol Tartrate [Lopressor] 100 mg PO DAILY 04/03/19 04/03/19 History Omeprazole 40 mg PO DAILY 04/03/19 04/03/19 History Ticagrelor [Brilinta] 60 mg PO BID 04/03/19 04/03/19 History metFORMIN HCL 1,000 mg PO BID 04/03/19 04/03/19 History Allergies Allergy/AdvReac Type Severity Reaction Status Date / Time No Known Allergies Allergy Verified 04/03/19 16:39 Physical Exam Vitals: Vital Signs Temp Pulse Pulse Resp BP BP Pulse Ox 04/04/19 11:37 97.8 F 78 16 130/64 99 04/04/19 08:04 97.7 F 79 16 118/61 96 04/04/19 04:00 98.0 F 83 18 118/67 100 04/03/19 23:49 66 18 92/56 98 04/03/19 20:00 79 18 04/03/19 19:59 97.7 F 79 18 117/58 92 L 04/03/19 18:55 98.6 F 79 16 108/59 98 06/01/19 18:00 71 16 91 L 04/03/19 17:00 77 16 119/73 98 04/03/19 16:00 81 16 131/72 100 04/03/19 15:58 77 131/72 99 04/03/19 15:55 97.6 F 86 18 131/72 100 Intake and Output 04/03/19 04/04/19 04/04/19 22:59 06:59 14:59 Intake Total 180 Output Total 300 500 Balance -300 -320 Intake: Oral 180 Output: Urine 300 500 Other: Voiding Method Toilet Toilet Toilet Urinal Urinal Urinal # Voids 3 Weight 85.275 kg 84.4 kg PHYSICAL EXAMINATION: GENERAL: The patient is alert and oriented x3, not in any acute distress. Well developed, well nourished. HEENT: Pupils are round and equally reacting to light. EOMI. No scleral icterus. No conjunctival pallor. Normocephalic, atraumatic. No pharyngeal erythema. No thyromegaly. CARDIOVASCULAR: S1 and S2 present. No murmurs, rubs, or gallops. PULMONARY: Chest is clear to auscultation, no wheezing or crackles. ABDOMEN: Soft, nontender, nondistended, normoactive bowel sounds. No palpable organomegaly. MUSCULOSKELETAL: No joint swelling or deformity. EXTREMITIES: No cyanosis, clubbing, or pedal edema. NEUROLOGICAL: Gross neurological examination did not reveal any focal deficits. SKIN: Patient has a bruise in the left arm and a small laceration in the left thumb which she'll not need any further intervention Results CBC & Chem 7: 04/03/19 16:13 04/03/19 16:13 Labs: Abnormal Lab Results - Last 24 Hours (Table) 04/03/19 04/03/19 04/03/19 Range/Units 16:05 16:13 16:13 WBC 1.3 L* (3.8-10.6) k/uL RBC 2.71 L (4.30-5.90) m/uL Hgb 9.1 L (13.0-17.5) gm/dL Hct 26.7 L (39.0-53.0) % RDW 19.2 H (11.5-15.5) % Plt Count 48 L (150-450) k/uL Neutrophils # 0.8 L (1.3-7.7) k/uL Lymphocytes # 0.3 L (1.0-4.8) k/uL Creatinine 1.34 H (0.66-1.25) mg/dL Glucose 120 H (74-99) mg/dL POC Glucose (mg/dL) 108 H (75-99) mg/dL Total Protein 6.1 L (6.3-8.2) g/dL HDL Cholesterol (40-60) mg/dL 04/03/19 04/04/19 04/04/19 Range/Units 20:49 06:08 07:16 WBC (3.8-10.6) k/uL RBC (4.30-5.90) m/uL Hgb (13.0-17.5) gm/dL Hct (39.0-53.0) % RDW (11.5-15.5) % Plt Count (150-450) k/uL Neutrophils # (1.3-7.7) k/uL Lymphocytes # (1.0-4.8) k/uL Creatinine (0.66-1.25) mg/dL Glucose (74-99) mg/dL POC Glucose (mg/dL) 137 H 106 H (75-99) mg/dL Total Protein (6.3-8.2) g/dL HDL Cholesterol 34 L (40-60) mg/dL Thrombosis Risk Factor Assmnt - Choose All That Apply Any of the Below Risk Factors Present?: No Other Risk Factors: Yes Each Risk Factor Represents 2 Points: Age 61-74 years Thrombosis Risk Factor Assessment Total Risk Factor Score: 2 Thrombosis Risk Factor Assessment Level: Low Risk Assessment and Plan Plan: Possible TIA with a recent right cerebellar stroke about 2 weeks ago patient does have cerebellar ataxia continue with the dual antiplatelet therapy and a statin no further changes or further workup for this acute renal failure: Patient will be started on IV fluids and recheck the cr eatinine tomorrow -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
--- NOTE | 2019-04-04 14:56 | US ---
EXAMINATION TYPE: US carotid duplex BILAT DATE OF EXAM: 04/04/2019 COMPARISON: NONE CLINICAL HISTORY: TIA, fall. TIA, fall EXAM MEASUREMENTS: RIGHT: Peak Systolic Velocity (PSV) cm/sec ----- Right CCA: 68.8 ----- Right ICA: 98.5 ----- Right ECA: 91.9 ICA/CCA ratio: 1.4 RIGHT: End Diastole cm/sec ----- Right CCA: 16.0 ----- Right ICA: 36.9 ----- Right ECA: 8.4 LEFT: Peak Systolic Velocity (PSV) cm/sec ----- Left CCA: 57.2 ----- Left ICA: 77.3 ----- Left ECA: 81.7 ICA/CCA ratio: 1.4 LEFT: End Diastole cm/sec ----- Left CCA: 17.1 ----- Left ICA: 34.5 ----- Left ECA: 11.0 VERTEBRALS (direction of flow): Right Vertebral: Antegrade Left Vertebral: Antegrade Rhythm: Normal Moderate plaque bilateral bifurcations. No evidence of increased velocities. No evidence of significa nt stenosis IMPRESSION: Moderate degree of grayscale atheromatous plaquing with no sonographically evident hemody namically significant stenosis within either visualized carotid arterial system. Criteria for Assigning % of Stenosis / Diameter reduction (Estimation based on the indirect measurements of the internal carotid artery velocities (ICA PSV). 1. Normal (no stenosis)=ICA PSV < 125 cm/s: ratio < 2.0: ICA EDV<40 cm/s. 2. Less than 50% stenosis=ICA PSV < 125 cm/s: ratio < 2.0: ICA EDV<40 cm/s. 3. 50 to 69% stenosis=ICA PSV of 125 to 230 cm/s: ration 2.0 ? 4.0: ICA EDV 40-100 cm/s. 4. Greater than 70% stenosis to near occlusion= ICA PSV > 230 cm/s: ratio > 4.0: ICA EDV > 100 cm/s. 5. Near occlusion= ICA PSV velocities may be low or undetectable: variable ratio and ICA EDV. 6. Total occlusion=unable to detect flow.
[2019-04-04 15:45] VITALS: BMI 25.2
[2019-04-04 16:47] LABS: Glucose,Whole Blood 94 mg/dL (75-99)
--- NOTE | 2019-04-04 16:49 | P.PN ---
Subjective Progress Note Date: 04/04/19 Patient denies any changes in his condition. Continues to be very ataxic on the right side. Patient states that he lives with his brother Oscar. Patient does not have any children, never . Patient claims he had CVA 2 weeks ago and was admitted to [facility]. However there is no hospital admission record of stroke. He was last admitted in February 2019. According to discharge summary from 02/13/2019, he was admitted for neutropenic fever, severe leukopenia, pancytopenia. Carotid Doppler showed moderate degree of grayscale atheromatous plaquing with no sonographically evident hemodynamically significant stenosis within either visualized carotid arterial system. Antegrade flow in both vertebral arteries. Patient's hemoglobin A1c 7.7 as of today. Patient's lipid panel showed total cholesterol 69, LDL 20, HDL 34. Objective - Vital Signs Vital signs: Vital Signs Temp 97.8 F 04/04/19 16:00 Pulse 74 04/04/19 16:00 Resp 18 04/04/19 16:00 BP 133/74 04/04/19 16:00 Pulse Ox 98 04/04/19 16:00 Intake & Output 04/03/19 04/04/19 04/04/19 18:59 06:59 18:59 Intake Total 420 Output Total 300 500 Balance -300 -80 Weight 85.275 kg 84.4 kg 84.4 kg Intake: Oral 420 Output: Urine 300 500 Other: Voiding Method Toilet Toilet Urinal Urinal # Voids 3 - Exam Patient is alert and awake in no distress. His speech is slightly raspy, mildly dysarthric. Mild right facial asymmetry. Visual sellers are full. Muscle strength is normal. Patient is very ataxic for [id number] and [id number] on the right. - Labs CBC & Chem 7: 04/03/19 16:13 04/03/19 16:13 Labs: Abnormal Lab Results - Last 24 Hours (Table) 04/03/19 04/03/19 04/03/19 Range/Units 16:13 16:13 20:49 WBC 1.3 L* (3.8-10.6) k/uL RBC 2.71 L (4.30-5.90) m/uL Hgb 9.1 L (13.0-17.5) gm/dL Hct 26.7 L (39.0-53.0) % RDW 19.2 H (11.5-15.5) % Plt Count 48 L (150-450) k/uL Neutrophils # 0.8 L (1.3-7.7) k/uL Lymphocytes # 0.3 L (1.0-4.8) k/uL Creatinine 1.34 H (0.66-1.25) mg/dL Glucose 120 H (74-99) mg/dL POC Glucose (mg/dL) 137 H (75-99) mg/dL Total Protein 6.1 L (6.3-8.2) g/dL HDL Cholesterol (40-60) mg/dL 04/04/19 04/04/19 Range/Units 06:08 07:16 WBC (3.8-10.6) k/uL RBC (4.30-5.90) m/uL Hgb (13.0-17.5) gm/dL Hct (39.0-53.0) % RDW (11.5-15.5) % Plt Count (150-450) k/uL Neutrophils # (1.3-7.7) k/uL Lymphocytes # (1.0-4.8) k/uL Creatinine (0.66-1.25) mg/dL Glucose (74-99) mg/dL POC Glucose (mg/dL) 106 H (75-99) mg/dL Total Protein (6.3-8.2) g/dL HDL Cholesterol 34 L (40-60) mg/dL Assessment and Plan Assessment: * Status post recent history of right cerebellar stroke 2 weeks ago (no medical records available in our system of his reported history of recent CVA). Patient suffered from a fall likely due to gait imbalance from cerebellar ataxia. Does not notice any worsening of baseline weakness. * History of myelodysplastic syndrome, acute myeloid leukemia, status post BMT. * Pancytopenia, thrombocytopenia * Diabetes * Hypertension Plan: * Patient will be continued on Brillinta 60 mg twice a day and aspirin 81 mg daily for stroke prevention, as patient was at home. Would not increase aspirin dose to 325 because of risk of hemorrhagic complications related to thrombocytopenia. We will start Pepcid 20 mg twice a day for gastric ulcer prophylaxis. * Patient's white cells have decreased 1.3. Hemoglobin 9.1 and platelets 48. Consider hematology consultation, and clearance for continuation of Brillinta and Aspirin. * Carotid Doppler showed moderate degree of grayscale atheromatous plaquing with no sonographically evident hemodynamically significant stenosis within either visualize carotid arterial system. * As there is discrepancy about patient's reported history, therefore we will check an MRI of the brain to evaluate for acuity of the right cerebellar CVA, acute, subacute or chronic. Consider transesophageal echocardiogram to rule out embolic source. Previous transthoracic echo did not show any embolic source. * Continue statins. * Patient's last 2-D echo from 12/16/2018 showed normal left ventricular size, EF 55-60%. Left atrium is moderately dilated. * Await B12, folate levels. * Hemoglobin A1c is 7.7 indicating diabetes. Suggest optimize control of diabetes to target hemoglobin A1c <7.0. * PT and OT evaluate gait. Patient is a fall risk. * Neurology coverage not available from tomorrow, 04/05/2019 through 04/09/2019.
[2019-04-04] MEDS: FAMOTIDINE 20 MG TAB PO SCH (20:16)
[2019-04-04] MEDS: SODIUM CHLORIDE 0.9% 1,000 ML IV SCH (20:16)
[2019-04-04] MEDS: GABAPENTIN 100 MG CAP PO SCH (20:16)
[2019-04-04 21:02] LABS: Glucose,Whole Blood 103 mg/dL (75-99)
[2019-04-05] MEDS: SODIUM CHLORIDE 0.9% 1,000 ML IV SCH ×2 (05:16→12:58)
[2019-04-05] MEDS: INSULIN ASPART (NovoLOG) 100 UNIT/ML VIAL SQ SCH ×4 (06:02→21:03)
[2019-04-05] MEDS: PANTOPRAZOLE 40 MG TABLET PO SCH (06:02)
[2019-04-05] MEDS: LEVOTHYROXINE 100 MCG TAB PO SCH (06:02)
[2019-04-05 06:03] LABS: Glucose,Whole Blood 115 mg/dL (75-99)
[2019-04-05 07:00] LABS: Calcium 8.9 mg/dL (8.4-10.2); Potassium 4.3 mmol/L (3.5-5.1)
[2019-04-05] MEDS: MAGNESIUM OXIDE 400 MG TAB PO SCH (08:48)
[2019-04-05] MEDS: NORTRIPTYLINE 25 MG CAP PO SCH (08:48)
[2019-04-05] MEDS: METOPROLOL TARTRATE 50 MG TAB PO SCH (08:48)
[2019-04-05] MEDS: FAMOTIDINE 20 MG TAB PO SCH (08:48)
[2019-04-05] MEDS: ACYCLOVIR 200 MG CAP PO SCH ×2 (08:48→21:05)
[2019-04-05] MEDS: ASPIRIN 81 MG PO SCH (08:48)
[2019-04-05] MEDS: TICAGRELOR 90 MG TAB PO SCH ×2 (08:48→21:04)
[2019-04-05] MEDS: ISOSORBIDE MONONITRATE ER 30 MG TAB.ER.24H PO SCH (08:48)
[2019-04-05] MEDS: ACETAMINOPHEN TAB 325 MG TAB PO PRN (09:26)
[2019-04-05 09:48] LABS: Folate, Serum 6.4 ng/mL
--- NOTE | 2019-04-05 11:54 | MR ---
MR brain without contrast HISTORY: Cerebral vascular accident, neuro deficits, altered mental status Multiplanar multisequence imaging through the brain Correlation CT brain 04/03/2019 The area of abnormal density seen on CT involving the right cerebellar hemisphere and middle cerebell ar peduncle is noted and correlates with increased signal in inversion recovery T2-weighted sequences as well as low signal on T1-weighted images. There is no mass effect. No hydrocephalus or hemorrhage . Periventricular confluent and scattered hyperintensities are present on inversion recovery T2-weigh leighton sequences, greater than 50 lesions are present, similar signal in the eric. Cortical atrophy is l ikely age-related. There are normal vascular flow voids. There is no restricted diffusion. Orbits ashley w symmetric appearance. IMPRESSION: Demyelinating processes such as multiple sclerosis, progressive multifocal leukoencephalo rosita, acute disseminated encephalomyelitis, remote ischemia, cyclosporine related encephalopathy, ra re infection such as Lyme disease, vasculitis, neoplastic processes such as lymphoma or glioma are wi thin the differential. Contrast-enhanced exam may be of benefit.
[2019-04-05 12:04] LABS: Glucose,Whole Blood 188 mg/dL (75-99)
--- NOTE | 2019-04-05 12:47 | P.PN ---
Subjective Patient continues to have on difficulty with speech right-sided weakness. Patient was evaluated by neurology not available until the end of the week. Recommended SIGIFREDO and hematology consult regarding medication and pancytopenia Objective - Vital Signs Vital signs: Vital Signs Temp 98.2 F 04/05/19 09:25 Pulse 76 04/05/19 09:25 Resp 20 04/05/19 09:25 BP 152/69 04/05/19 09:25 Pulse Ox 100 04/05/19 09:25 Intake & Output 04/04/19 04/05/19 04/05/19 18:59 06:59 18:59 Intake Total 660 240 Output Total 1100 625 Balance -440 -625 240 Weight 84.4 kg 84.3 kg Intake: Oral 660 240 Output: Urine 1100 625 Other: Voiding Method Toilet Toilet Urinal # Voids 1 - Constitutional General appearance: Present: mild distress - EENT Eyes: Present: PERRLA ENT: Present: normal oropharynx Ears: bilateral: normal - Neck Neck: Present: normal ROM - Respiratory Respiratory: bilateral: CTA - Cardiovascular Rhythm: regular Abnormal Heart Sounds: Present: systolic murmur - Gastrointestinal General gastrointestinal: Present: soft - Integumentary Integumentary Comment(s): Left arm ecchymosis - Musculoskeletal Musculoskeletal: Present: right sided weakness - Psychiatric Psychiatric: Present: A&O x's 3, appropriate affect, intact judgment & insight - Labs CBC & Chem 7: 04/03/19 16:13 04/05/19 05:52 Labs: Abnormal Lab Results - Last 24 Hours (Table) 04/04/19 04/04/19 04/05/19 Range/Units 07:16 20:55 05:52 Chloride 111 H (98-107) mmol/L Glucose 103 H (74-99) mg/dL POC Glucose (mg/dL) 103 H (75-99) mg/dL Vitamin B12 181.0 L (200.0-944.0) pg/mL 04/05/19 04/05/19 Range/Units 06:01 11:42 Chloride (98-107) mmol/L Glucose (74-99) mg/dL POC Glucose (mg/dL) 115 H 188 H (75-99) mg/dL Vitamin B12 (200.0-944.0) pg/mL - Imaging and Cardiology Chest x-ray: report reviewed CT Scan - head: report reviewed Assessment and Plan Plan: Assessment Recent right cerebral stroke with right-sided weakness and ataxia History of acute myeloid leukemia Pancytopenia thrombocytopenia Diabetes Hypertension Plan Continue consultation with neurology when available Consultation with cardiology regarding possible SIGIFREDO Consultation with hematology for medication review with pancytopenia
--- NOTE | 2019-04-05 14:08 | FL ---
COMPARISON: NONE DATE OF EXAM: 04/05/2019 HISTORY: Dysphasia A number of thin and thick substances were ingested under the care of the department of speech pathol ogy. There is no evidence of aspiration. There is transient penetration with ingestion of thin bariu m. There is no evidence of obstruction. 0 images submitted and 1.04 minutes of fluoroscopy time. IMPRESSION: 1. See above.
[2019-04-05 17:02] LABS: Glucose,Whole Blood 128 mg/dL (75-99)
[2019-04-05 20:27] LABS: Glucose,Whole Blood 106 mg/dL (75-99)
--- NOTE | 2019-04-05 20:29 | MR ---
EXAMINATION TYPE: MR brain w con DATE OF EXAM: 04/05/2019 COMPARISON: HISTORY: MRI changes TECHNIQUE: Multiplanar, multisequence images of the brain and brainstem is performed without and with IV contras t, utilizing 8.5 mL intravenous Gadavist . FINDINGS: There is cerebral cortical atrophy. Contrast images show no pathologic enhancement. There i s thinning of the corpus callosum. Sella turcica appears intact. IMPRESSION: There is diffuse white matter disease with more extensive disease noted in the white tamar er right cerebellar hemisphere extending into the eric. No pathologic enhancement. I would consider both chronic small vessel ischemia as well as demyelinating disease. No evidence of cortical infarct.
[2019-04-05 20:57] LABS: Glucose,Whole Blood 124 mg/dL (75-99)
[2019-04-05] MEDS: GABAPENTIN 100 MG CAP PO SCH (21:05)
[2019-04-06] MEDS: SODIUM CHLORIDE 0.9% 1,000 ML IV SCH ×2 (04:48→12:29)
[2019-04-06 05:16] VITALS: RESP 18
[2019-04-06 06:04] LABS: Glucose,Whole Blood 118 mg/dL (75-99)
[2019-04-06] MEDS: INSULIN ASPART (NovoLOG) 100 UNIT/ML VIAL SQ SCH ×2 (06:27→12:09)
[2019-04-06] MEDS: PANTOPRAZOLE 40 MG TABLET PO SCH (06:28)
[2019-04-06] MEDS: LEVOTHYROXINE 100 MCG TAB PO SCH (06:28)
[2019-04-06 07:02] LABS: Anisocytosis Slight; HCT 27.5 % (39.0-53.0); HGB 8.9 gm/dL (13.0-17.5); MCH 32.8 pg (25.0-35.0); MCHC 32.5 g/dL (31.0-37.0); MCV 100.9 fL (80.0-100.0); Macrocytosis Moderate; Mean Platelet Volume 10.1; RBC 2.73 m/uL (4.30-5.90); RDW 18.3 % (11.5-15.5)
[2019-04-06 07:22] LABS: Platelet Count 42 k/uL (150-450); WBC 0.9 k/uL (3.8-10.6)
[2019-04-06 07:24] LABS: Albumin 3.4 g/dL (3.5-5.0); Potassium 4.2 mmol/L (3.5-5.1); Total Bilirubin 0.5 mg/dL (0.2-1.3); Total Protein 5.7 g/dL (6.3-8.2)
[2019-04-06] MEDS: ASPIRIN 81 MG PO SCH (08:54)
[2019-04-06] MEDS: METOPROLOL TARTRATE 50 MG TAB PO SCH (08:54)
[2019-04-06] MEDS: ISOSORBIDE MONONITRATE ER 30 MG TAB.ER.24H PO SCH (08:54)
[2019-04-06] MEDS: MAGNESIUM OXIDE 400 MG TAB PO SCH (08:54)
[2019-04-06] MEDS: TICAGRELOR 90 MG TAB PO SCH (08:54)
[2019-04-06] MEDS: ACYCLOVIR 200 MG CAP PO SCH (08:55)
[2019-04-06] MEDS: NORTRIPTYLINE 25 MG CAP PO SCH (08:55)
[2019-04-06 08:56] LABS: Poikilocytosis (M) Present
--- NOTE | 2019-04-06 11:30 | P.DS ---
Providers Date of admission: 04/03/19 18:08 Expected date of discharge: 04/06/19 Attending physician: Micheal Adamson Consults: 04/03/19 18:09 Consult Physician Routine Consulting Provider: Rafy Jurado Consult Reason/Comments: tia Do you want consulting provider notified?: Yes 04/05/19 12:41 Consult Physician Urgent Consulting Provider: Edgar Vieyra Consult Reason/Comments: pancytopenia medication review Do you want consulting provider notified?: Yes 04/05/19 12:42 Consult Physician Urgent Consulting Provider: Luis Panda Consult Reason/Comments: possible SIGIFREDO embolic source Do you want consulting provider notified?: Yes 04/06/19 10:32 Consult Physician Routine Consulting Provider: Olaf Ronquillo Consult Reason/Comments: IPR Do you want consulting provider notified?: Yes Primary care physician: Micheal Adamson Hospital Course: 73-year-old patient was admitted post CVA after had a fall. Patient does have right-sided weakness. MRI indicating subacute CVA. Patient was evaluated by neurology neurology not available for consultation. After extensive discussion with Dr. Gupta radiology her concern was possible glioma needing diagnostics at tertiary center. Patient's developed headache and room right visual disturbance. Plan is to transfer to [facility] for further treatment. Patient does have a history of pancytopenia thrombocytopenia secondary treatment of acute myeloid leukemia Assessment Subacute CVA Pancytopenia thrombocythemia Acute myeloid leukemia Right-sided weakness Depression Plan Transfer to [facility] Patient Condition at Discharge: Serious Plan - Discharge Summary Discharge Rx Participant: No New Discharge Prescriptions: No Action Dicyclomine HCl 20 mg PO DAILY Levothyroxine Sodium [Synthroid] 100 mcg PO DAILY Tamsulosin [Flomax] 0.4 mg PO DAILY amLODIPine [Norvasc] 5 mg PO DAILY clonazePAM [KlonoPIN] 0.5 mg PO DAILY Gabapentin [Neurontin] 100 mg PO HS Nitroglycerin Sl Tabs [Nitrostat] 0.4 mg SUBLINGUAL Q5M PRN #25 tab PRN Reason: Chest Pain Isosorbide Mononitrate ER [Imdur] 30 mg PO DAILY #30 tab.er.24h Magnesium Oxide 400 mg PO DAILY Nortriptyline [Pamelor] 25 mg PO DAILY Ondansetron [Zofran] 4 mg PO Q8H PRN PRN Reason: Nausea Acyclovir 400 mg PO BID Ticagrelor [Brilinta] 60 mg PO BID metFORMIN HCL 1,000 mg PO BID Omeprazole 40 mg PO DAILY Metoprolol Tartrate [Lopressor] 100 mg PO DAILY Aspirin [Adult Low Dose Aspirin EC] 81 mg PO DAILY Discharge Medication List Dicyclomine HCl 20 mg PO DAILY 05/24/14 [History] Levothyroxine Sodium [Synthroid] 100 mcg PO DAILY 05/24/14 [History] Tamsulosin [Flomax] 0.4 mg PO DAILY 10/11/16 [History] amLODIPine [Norvasc] 5 mg PO DAILY 10/11/16 [History] Gabapentin [Neurontin] 100 mg PO HS 01/26/18 [History] clonazePAM [KlonoPIN] 0.5 mg PO DAILY 01/26/18 [History] Isosorbide Mononitrate ER [Imdur] 30 mg PO DAILY #30 tab.er.24h 07/31/18 [Rx] Nitroglycerin Sl Tabs [Nitrostat] 0.4 mg SUBLINGUAL Q5M PRN #25 tab 07/31/18 [Rx] Magnesium Oxide 400 mg PO DAILY 12/05/18 [History] Nortriptyline [Pamelor] 25 mg PO DAILY 12/05/18 [History] Ondansetron [Zofran] 4 mg PO Q8H PRN 12/05/18 [History] Acyclovir 400 mg PO BID 01/29/19 [History] Aspirin [Adult Low Dose Aspirin EC] 81 mg PO DAILY 04/03/19 [History] Metoprolol Tartrate [Lopressor] 100 mg PO DAILY 04/03/19 [History] Omeprazole 40 mg PO DAILY 04/03/19 [History] Ticagrelor [Brilinta] 60 mg PO BID 04/03/19 [History] metFORMIN HCL 1,000 mg PO BID 04/03/19 [History] Follow up Appointment(s)/Referral(s): Micheal Adamson MD [Primary Care Provider] - 1-2 days
[2019-04-06 12:10] LABS: Glucose,Whole Blood 118 mg/dL (75-99)
[2019-04-06 12:25] VITALS: TEMP 98.6
[2019-04-06] MEDS: ACETAMINOPHEN TAB 325 MG TAB PO PRN (13:54)
[2019-04-06 16:05] VITALS: BP 136/70; PULSE 70
== END 2019-04-06 17:30 | disposition short-term general hospital (02) ==
LOC: EC 15:52 → 3SCARD 18:08
PROVIDERS: ADMIT Family Medicine; ATTEND Family Medicine
DX: I63.9 Cerebral infarction, unspecified (principal); F32.9 Major depressive disorder, single episode, unspecified; G81.91 Hemiplegia, unspecified affecting right dominant side; C92.00 Acute myeloblastic leukemia, not having achieved remission; E11.9 Type 2 diabetes mellitus without complications; D46.9 Myelodysplastic syndrome, unspecified; I10 Essential (primary) hypertension; Z94.81 Bone marrow transplant status; D47.3 Essential (hemorrhagic) thrombocythemia; E03.9 Hypothyroidism, unspecified; E78.5 Hyperlipidemia, unspecified; G11.9 Hereditary ataxia, unspecified; I25.10 Atherosclerotic heart disease of native coronary artery without angina pectoris; K21.9 Gastro-esophageal reflux disease without esophagitis; N17.9 Acute kidney failure, unspecified; N40.0 Benign prostatic hyperplasia without lower urinary tract symptoms; Z87.442 Personal history of urinary calculi; K57.90 Diverticulosis of intestine, part unspecified, without perforation or abscess without bleeding; W19.XXXA Unspecified fall, initial encounter; S40.022A Contusion of left upper arm, initial encounter; Z95.5 Presence of coronary angioplasty implant and graft; I25.2 Old myocardial infarction; Z98.42 Cataract extraction status, left eye; Z98.41 Cataract extraction status, right eye; Z96.1 Presence of intraocular lens; Z79.02 Long term (current) use of antithrombotics/antiplatelets; Z79.82 Long term (current) use of aspirin; Z79.84 Long term (current) use of oral hypoglycemic drugs; Z79.890 Hormone replacement therapy; Z79.899 Other long term (current) drug therapy; Z82.3 Family history of stroke; Z82.49 Family history of ischemic heart disease and other diseases of the circulatory system; Z83.3 Family history of diabetes mellitus
CPT/HCPCS: 96360; 96361; 99285; 36415; 93005; 97162; 97112; 97166; 92610; 92507; 92611; 92522; 80061; 80053 ×2; 80048; 82607; 82746; 84484; 85025 ×2; 85610; 85730; 74230; 71046; 93880; 70450; 70551; 70552; G0378 ×4; A9585